=== PATIENT | female | born 1955 | race Caucasian/White ===

== ENCOUNTER → 2024-06-30 | Outpatient (CLI) | payer MEDICARE, SELFPAY ==
[2024-07-04 17:08] LABS: Calprotectin, Stool 83 ug/g (0-120)
[2024-07-06 03:07] LABS: Giardia Lamblia, Stool EIA Negative (Negative); Pancreatic Elastase, Fecal > 800 (>200)
== END | disposition home or self-care (01) ==
LOC: LAB 08:11
PROVIDERS: PCP Internal Medicine; Referring Provider Student in an Organized Health Care Education/Training Program; Visit Provider Student in an Organized Health Care Education/Training Program
DX: K52.9 Noninfective gastroenteritis and colitis, unspecified (principal)
CPT/HCPCS: 82653; 83993; 87329; 87493

== ENCOUNTER 2025-04-18 06:08 | Day surgery (SDC) | payer MEDICARE, SELFPAY ==
[2025-04-18] VITALS (11 sets, daily range): BP systolic 102–136; BP diastolic 59–72; PULSE 67–94; RESP 16; TEMP 36.4–36.6; O2SAT 95–97; BMI 20.2
--- OUTSIDE RECORDS SUMMARY | 2025-04-18 06:14 | XMS RPT_ITS | CCD ---
Author Organization [facility] CliniSy[facility] Care Team Providers Care Planned Giving Officer Name Role Phone [place] BRAND Unavailable Unavailable [place] BRAND Unavailable Unavailable [place] Brand Unavailable Unavailable Indiana Brand Unavailable Unavailable [place] Brand Unavailable Unavailable [place] BRAND Unavailable Unavailable [place] BRAND Unavailable Unavailable Geovanni, Monie Unavailable Unavailable Unavailable Geovanni, Dr. Lomax Primary Care Unavailable Naomy Casillas Attending Unavailable Attila, Dr. Steve Chavis Attending Naga Galarza, Dr. Lomax Primary Care Unavailable Dr. Steve Aiken Attending Naga Galarza, Dr. Lomax Primary Care Unavailable Geovanni, Dr. Lomax Primary Care Unavailable Geovanni, Dr. Lomax Attending Unavailable Geovanni, Dr. Lomax Referring Unavailable Monie Galarza MD Primary Care Provider Monie Galarza MD Unavailable [phone] [place] KINDERGARTEN TUTOR, Wendi Unavailable Unavailable [place] KINDERGARTEN TUTOR, Wendi Unavailable Unavailable [place] KINDERGARTEN TUTOR, Wendi Unavailable Unavailable EDGAR GORDON Attending Unavailable ZARRABI, MONIE Referring Unavailable ZARRABI, MONIE Primary Care Unavailable MAGDALENARRABI, MONIE Primary Care Unavailable TELLO MOORE Admitting Unavailable ISABELLA GALEANO Attending Unavailable ZARRABI, MONIE Primary Care Unavailable DIANDRA NIELSON Attending Unavailable ZARRABI, MONIE Referring Unavailable ZARRABI, MONIE Primary Care Unavailable MAGDALENARRABI MONIE Referring Unavailable MAGDALENARRABI, MONIE Primary Care Unavailable GEOVANNI MONIE Referring Unavailable MAGDALENARRABI, MONIE Primary Care Unavailable Alejandrina Phoenix Attending Provider Geovanni WOOD, Dr. Lomax Primary Care Provider [phone] Alejandrina Phoenix Referring Provider [phone] ALEXUS MALIK Referring Unavailable ZARRABI, MONIE Primary Care Unavailable ADAM HANKINS Admitting Unavailable STEVE SALAS Attending Unavailable DIANDRA NIELSON Referring Unavailable ZARRABI, MONIE Primary Care Unavailable JAKE MIRELES Admitting Unavailable JAKE MIRELES Attending Unavailable ZARRABI, MONIE Primary Care Unavailable ZARRABI, MONIE Primary Care Unavailable ZARRABI, MONIE Primary Care Unavailable Dr. Monie Galarza MD Referring Provider Monie Galarza MD Primary Care Provider Monie Galarza MD Unavailable [phone] Alejandrina Phoenix Attending Provider Dr. Monie Galarza MD Primary Care Provider [phone] Zarrabi, Monie Referring Unavailable Alejandrina Montes Attending Unavailable Zarrabi, Monie Primary Care Unavailable Zarrabi, Monei Referring Unavailable Alejandrina Montes Attending Unavailable Zarrabi, Monie Primary Care Unavailable Alejandrina Montes Attending Unavailable ConradnasAlejandrina brian Referring Unavailable Zarrabi, Monie Primary Care Unavailable Shavon Rivas Attending Unavailable Alejandrina Montes Attending Unavailable ZARRABI, MONIE Attending Unavailable ZARRABI, MONIE Primary Care Unavailable ZARRABI, MONIE Referring Unavailable ZARRABI, MONIE Primary Care Unavailable ZARRABI, MONIE Referring Unavailable ZARRABI, MONIE Attending Unavailable ZARRABI, MONIE Primary Care Unavailable ZARRABI, MONIE Attending Unavailable ZARRABI, MONIE Primary Care Unavailable ZARRABI, MONIE Attending Unavailable ZARRABI, MONIE Primary Care Unavailable ZARRABI, MONIE Attending Unavailable ZARRABI, MONIE Primary Care Unavailable ZARRABI, MONIE Referring Unavailable ZARRABI, MONIE Attending Unavailable ZARRABI, MONIE Primary Care Unavailable ZARRABI, MONIE Referring Unavailable ZARRABI, MONIE Attending Unavailable MONIE GALARZA Primary Care Unavailable MONIE GALARZA Referring Unavailable Allergies Allergy Classification Reported Allergen(s) Allergy Type Date of Onset Reaction(s) Facility (1 source) No Known Allergies; Translations: [No Known Allergies] Propensity to adverse reactions to drug (disorder) [facility] Repository (1 source) No Known Medication Allergies; Translations: [No Known Medication Allergies] Propensity to adverse reactions to drug (disorder) [facility] Repository Medications Current Medications Medication Drug Class(es) Dates Sig (Normalized) Sig (Original) acetaminophen 325 mg oral tablet (6 sources) Start: 10-04-2023 take 1 tablet by mouth every four hours as needed 650 mg, oral, Every 4 hours PRN, pain mild (1-3), first line, Starting on Tue10/04/23 at 1924, Phase II/On Unit, If ordered PRN for pain, nurse is permitted to administer this medication for higher pain scores based on patient preference? Yes Start: 09-29-2023 End: 10-11-2023 take 2 tablets by mouth every four hours acetaminophen (Tylenol) 325 mg tablet Indications: SBO (small bowel obstruction) (Multi) , Small bowel obstruction (Multi) Take 2 tablets (650 mg) by mouth every 4 hours. 09/29/2023 10/11/2023 Discontinued (Therapy completed) Start: 09-17-2023 take 1 tablet by linda th every four hours as needed acetaminophen (Tylenol) tablet 650 mg amLODIPine 10 mg oral tablet (8 sources) Dihydropyridine Calcium Channel Lorene Start: 03-11-2025 take 1 tablet by mouth once daily amLODIPine (Norvasc) 10 mg tablet Indications: Benign essential HTN Take 1 tablet (10 mg) by mouth once daily. 30 tablet 11 03/11/2025 Active Start: 02-11-2025 End: 03-11-2025 take 1.5 tablets by mouth once daily amLODIPine (Norvasc) 5 mg tablet Indications: Benign essential HTN Take 1.5 tablets (7.5 mg) by mouth once daily. 135 tablet 3 02/11/2025 03/11/2025 Discontinued (Reorder) Start: 01-21-2025 End: 02-11-2025 take 1 tablet by mouth once daily amLODIPine (Norvasc) 5 mg tablet Indications: Benign essential HTN Take 1 tablet (5 mg) by mouth once daily. 90 tablet 3 01/21/2025 02/11/2025 Discontinued (Reorder) Start: 12-18-2024 take 1 tablet by linda th once daily Amlodipine 5 mg tablet Active 5 mg PO daily December 18, 2024 12:00am Start: 11-20-2024 End: 11-20-2025 take 1 tablet by mouth once daily amLODIPine (Norvasc) 2.5 mg tablet Indications: Benign essential HTN Take 1 tablet (2.5 mg) by mouth once daily. 30 tablet 11 11/20/2024 01/21/2025 Discontinued (Reorder) Amoxicillin (1 source) Penicillin-class Antibacterial Start: 06-02-2023 End: 06-16-2023 take 1 dose by mouth twice daily wecgtyrsrer-jdvfvzshxfvnoe-psnjceszdecr (Prevpac) 500-500-30 mg combo pack Indications: Helicobacter pylori gastritis Take by mouth 2 times a day for 14 days. Follow directions for each daily card for when to take. 1 each 0 06/02/2023 06/16/2023 Active atropine sulfate 0.025 mg / diphenoxylat e hydrochlorid e 2.5 mg oral tablet (4 sources) Anticholinergic, Cholinergic Muscarinic Antagonist, Antidiarrheal Start: 12-24-2024 take 1 tablet by mouth twice daily diphenoxylate-atropine (Lomotil) 2.5-0.025 mg tablet Take 1 tablet by mouth 2 times a day. 12/24/2024 Active Start: 12-18-2024 Diphenoxylate- Atropine (Lomotil) 2.5-0.025 mg tablet Active 1 {tbl} PO TWICE A DAY as needed for diarrhea 60 1 December 18, 2024 12:00am biotin 1 mg oral tablet (20 sources) Start: 10-04-2023 take 10 mg by mouth once daily 10 mg, oral, Daily, First dose on Tue10/04/23 at 1015 take 1 tablet by mouth once abdoul y biotin 10 mg tablet Take 1 tablet (10 mg) by mouth once daily. Active Biotin TABS TAKE 1 TABLET DAILY. Quantity: 0 Refills: 0 Ordered: 08-Sep-2021 DO Active calcium carbonate 500 mg chewable tablet (1 source) Start: 10-04-2023 take 500 mg by mouth once daily 500 mg, oral, Daily, First dose on Tue10/04/23 at 1255 calcium carbonate 1250 mg / cholecalciferol 200 unt oral tablet (12 sources) Vitamin D take 1 tablet by mouth twice daily calcium carbonate-vitam in D3 500 mg-5 mcg (200 unit) tablet Take 1 tablet by mouth 2 times a day. Active calcium chloride 0.0014 meq/ml / potassium chloride 0.004 meq/ml / sodium chloride 0.103 meq/ml / sodium lactate 0.028 meq/ml injectable solution (5 sources) Start: 10-04-2023 End: 10-05-2023 take 100 mL intravenously every hour 100 mL/hr, intravenous, Continuous, Starting on Tue10/05/23 at 2130, Phase II/On Unit Start: 09-17-2023 End: 09-18-2023 take 75 mL intravenously every hour 75 mL/hr, intravenous, Continuous, Starting on Tue09/17/23 at 1425 Start: 05-26-2023 End: 05-27-2023 lactated Ringer's infusion esomeprazole 40 mg granules for oral suspension (1 source) Proton Pump Inhibitor Start: 09-18-2023 40 mg, nasogastric tube, Daily before breakfast, First dose on Tue09/18/23 at 0700, Add 15 mL water to catheter-tipped syringe, add granules from packet. Shake and let thicken. Administer through NG tube within 30 minutes. Refill with 15 mL of water, shake and flush NG tube. famotidine 20 mg oral tablet (20 sources) Histamine-2 Receptor Antagonist Start: 03-06-2024 take 1 tablet by mouth once daily Famotidine 20 mg tablet Active 20 mg PO daily March 06, 2024 1:00am Start: 09-18-2023 End: 09-19-2023 Starting on Tue09/19/23 at 1 120, For 1 dose, Created by cabinet override Start: 04-13-2023 End: 05-23-2024 take 1 tablet by mouth twice daily famotidine (Pepcid) 20 mg tablet Indications: Gastroesophageal reflux disease without esophagitis Take 1 tablet by mouth twice daily 60 tablet 11 08/09/2023 05/23/2024 Discontinued (Therapy completed) fenofibrate 48 mg oral tablet (5 sources) Peroxisome Proliferator Receptor alpha Agonist Start: 11-20-2024 take 1 tablet by mouth once daily fenofibrate (Tricor) 48 mg tablet Indications: Hypertriglyceridemia Take 1 tablet (48 mg) by mouth once daily. 30 tablet 11 11/20/2024 Active glucagon (rdna) 1 mg injection (1 source) Antihypoglycemic Agent Start: 09-18-2023 1 mg, intramuscular, Every 15 min PRN, low blood sugar - see comments, For blood glucose less than or equal to 40 mg/dL and no IV access, Starting on Tue09/18/23 at 1022, Give until blood glucose is 100 mg/dL or greater. If patient DOES NOT HAVE secure IV access & patient is unconscious, NPO or is unable to eat or drink. 50 ml glucose 500 mg/ml prefilled syringe (1 source) Start: 09-18-2023 25 g, intravenous, Every 15 min PRN, For blood glucose less than or equal to 40 mg/dL, Starting on Tue09/18/23 at 1022, May repeat until blood glucose level reaches 100 mg/dL or greater. Push 2 - 3 mL/minute if patient has secure IV access. 1 ml heparin sodium, porcine 5000 unt/ml injection (2 sources) Unfractionated Heparin, Anti-coagulant Start: 10-04-2023 inject 5000 [IU] by subcutaneous injection every eight hours 5,000 Units, subcutaneous, Every 8 hours, First dose on Tue10/04/23 at 1300 Start: 09-17-2023 inject 5000 [IU] by subcutaneous injection every eight hours 5,000 Units, subcutaneous, Every 8 hours, First dose on 09/17/23 at 1425 insulin lispro 100 unt/ml injectable solution (3 sources) Insulin Analog Start: 09-19-2023 End: 09-22-2023 0-5 Units, subcutaneous, Every 6 hours, First dose (after last modification) on Tue09/19/23 at 1800, For 3 days, Insulin Lispro Corrective Scale #1 Hypoglycemia protocol Call LIP unit(s) if Blood Glucose is between 0 - 70 mg/dL 0 unit(s) if Blood glucose is between 71-150 1 unit(s) if Blood glucose is between 151-200 2 unit(s) if Blood glucose is between 201-250 3 unit(s) if Blood glucose is between 251-300 4 unit(s) if Blood glucose is between 301-350 5 unit(s) if Blood glucose is between 351-400 Notify provider unit(s) if Blood Glucose is greater than 400 mg/dL Start: 09-19-2023 End: 09-19-2023 Starting on 09/19/23 at 0 457, For 1 dose, Created by cabinet override Start: 09-18-2023 End: 09-19-2023 0-5 Units, subcutaneous, Gia ry 4 hours, First dose on 09/18/23 at 1045, Insulin Lispro Corrective Scale #1 Hypoglycemia protocol Call LIP unit(s) if Blood Glucose is between 0 - 70 mg/dL 0 unit(s) if Blood glucose is between 71-150 1 unit(s) if Blood glucose is between 151-200 2 unit(s) if Blood glucose is between 201-250 3 unit(s) if Blood glucose is between 251-300 4 unit(s) if Blood glucose is between 301-350 5 unit(s) if Blood glucose is between 351-400 Notify provider unit(s) if Blood Glucose is greater than 400 mg/dL lactobacillus acidophilus 1.5 mg oral capsule (20 sources) Start: 07-11-2023 take 1 capsule by mouth once daily Lactobacillus acidophilus (Probiotic Acidophilus) 250 million cell capsule Indications: Abdominal bloating Take 1 1e11 Vector Genomes by mouth once daily. 30 capsule 11 07/11/2023 Active lisinopril 20 mg oral tablet (20 sources) Angiotensin Converting Enzyme Inhibitor Start: 02-27-2025 take 1 tablet by mouth twice daily lisinopril 20 mg tablet Indications: Benign essential HTN Take 1 tablet by mouth twice daily 60 tablet 11 02/27/2025 Active Start: 01-31-2024 End: 03-27-2024 take 1 tablet by mouth twice daily lisinopril 20 mg tablet Indications: Benign essential HTN Take 1 tablet (20 mg) by mouth 2 times a day. 60 tablet 11 03/27/2024 Active Start: 12-29-2023 End: 01-31-2024 take 1.5 tablets by mouth twice daily lisinopril 10 mg tablet Indications: Benign essential HTN Take 1.5 tablets (15 mg) by mouth 2 times a day. 270 tablet 3 12/29/2023 01/31/2024 Discontinued (Reorder) Start: 12-08-2023 End: 12-29-2023 take 1 tablet by mouth twice daily lisinopril 10 mg tablet Indications: Benign essential HTN Take 1 tablet (10 mg) by mouth 2 times a day. 180 tablet 3 12/08/2023 12/29/2023 Discontinued (Reorder) Start: 11-10-2023 take 1.5 tablets by mouth once daily lisinopril 10 mg tablet Indications: Benign essential HTN Take 1.5 tablets (15 mg) by mouth once daily. 135 tablet 3 11/10/2023 Active Start: 04-13-2023 End: 11-10-2023 take 1 tablet by mouth once daily lisinopril 10 mg tablet Indications: Benign essential HTN Take 1 tablet (10 mg) by mouth once daily. 90 tablet 3 04/13/2023 11/10/2023 Discontinued (Reorder) Start: 05-04-2022 End: 04-13-2023 take 1 tablet by mouth once daily lisinopril 5 mg tablet Take 1 tablet (5 mg) by mouth once daily. 0 07/28/2022 04/13/2023 Discontinued (Reorder) loperamide hydrochloride 2 mg oral capsule (20 sources) Opioid Agonist Start: 03-06-2024 End: 09-18-2024 take 1 capsule by mouth every six hours as needed Loperamide 2 mg capsule Active 2 mg PO EVERY 6 HOURS as needed for loose stool 45 2 September 18, 2024 9:48am Start: 12-08-2023 take 1 capsule by [facility] four times daily as needed for diarrhea loperamide (Imodium) 2 mg capsule Indications: Diarrhea, unspecified type Take 1 capsule (2 mg) by mouth 4 times a day as needed for diarrhea. 30 capsule 2 12/08/2023 Active Start: 10-06-2023 End: 11-05-2023 take 1 capsule by mouth four times daily at mealtime loperamide (Imodium) 2 mg capsule Indications: Diarrhea Take 1 capsule (2 mg) by mouth 4 times a day with meals. 120 capsule 10/06/2023 11/05/2023 Active Start: 10-05-2023 End: 10-05-2023 take 2 mg by mouth once 2 mg, oral, Once, On 10/04 at 1750, For 1 dose Start: 09-29-2023 End: 10-29-2023 take 1 capsule by mouth three times daily as needed for diarrhea loperamide (Imodium) 2 mg capsule Indications: SBO (small bowel obstruction) (Multi) , Small bowel obstruction (Multi) Take 1 capsule (2 mg) by mouth 3 times a day as needed for diarrhea. 90 capsule 09/29/2023 10/11/2023 Discontinued (Therapy completed) magnesium chloride 64 mg magnesium tablet (14 sources) Start: 10-11-2023 take 1 tablet by mouth once daily magnesium chloride 64 mg magnesium tablet Indications: Hypomagnesemia Take 1 1e11 Vector Genomes by mouth once daily. 30 tablet 11 10/11/2023 Active multivit-min/ferrous fumarate (MULTI VITAMIN ORAL) (9 sources) take 1 tablet by mouth once daily multivit-min/ferrous fumarate (MULTI VITAMIN ORAL) Take 1 tablet by mouth once daily. Active take 1 tablet by mouth once abdoul y multivit-min/ferrous fumarate (MULTI VITAMIN ORAL) Take 1 tablet by mouth once daily. 0 Active multivitamin tablet (12 sources) take 1 tablet by mouth once daily multivitamin tablet Take 1 tablet by mouth once daily. Active omeprazole 40 mg delayed release oral capsule (20 sources) Proton Pump Inhibitor Start: 03-06-20 take 1 capsule by mouth once daily omeprazole (PriLOSEC) [address] capsule Indications: Gastroesophageal reflux disease, unspecified whether esophagitis present Take 1 capsule by mouth once daily 90 capsule 3 12/18/2024 Active Start: 10-10-2023 End: 10-11-2023 take 1 capsule by mouth once daily Omeprazole 40 mg capsule,delayed release(DR/EC) Active 40 mg PO daily March 06, 2024 1:00am Start: 10-12-2022 take 1 capsule by mo uth once daily omeprazole (PriLOSEC) [address] capsule Indications: Gastroesophageal reflux disease, unspecified whether esophagitis present Take 1 capsule (40 mg) by mouth once daily. 90 capsule 3 10/12/2022 Active Start: 04-06-2022 take 1 capsule by mo uth once daily Omeprazole 40 MG Oral Capsule Delayed Release TAKE 1 CAPSULE Daily Quantity: 30 Refills: 5 Ordered: 06-Apr-2022 Monie Galarza MD Start : 06-Apr-2022 Active ondansetron ODT (Zofran-ODT) disintegrating tablet 4 mg (1 source) Start: 09-19-2023 take 1 tablet by mouth every eight hours as needed ondansetron ODT (Zofran-ODT) disintegrating tablet 4 mg pantoprazole 40 mg delayed release oral tablet (1 source) Proton Pump Inhibitor Start: 10-05-2023 take 40 mg by mouth once daily before breakfast 40 mg, oral, Daily before breakfast, First dose on Tue10/05/23 at 0700, Do not crush, chew, or split. phenol 14 mg/ml mucosal spray (1 source) Start: 09-17-2023 take 1 spray(s) by mouth every two hours as needed 1 spray, Mouth/Throat, Every 2 hour PRN, sore throat, Starting on 09/17/23 at 2036, Instruct patient to spit out after 15 seconds. phenylephrine 0.0025 mg/mg rectal suppository (7 sources) alpha-1 Adrenergic Agonist phenylephrine 0.25 % suppository Insert 1 suppository into the rectum. Active phenylephrine 0.25 % suppository (3 sources) phenylephrine 0. 25 % suppository Insert 1 suppository into the rectum. Active microencapsulated potassium chloride 20 meq extended release oral tablet (20 sources) Start: 11-10-2023 End: 01-21-2025 take 1 tablet by mouth once daily potassium chloride CR (Klor-Con M20) 20 mEq ER tablet Indications: Hypokalemia Take 1 tablet (20 mEq) by mouth once daily. DO NOT CRUSH CHEW OR SPLIT 90 tablet 3 01/21/2025 Active Start: 10-11-2023 End: 10-10-2024 take 1 tablet by mouth once daily potassium chloride C R (Klor- Con) 10 mEq ER tablet Indications: Hypokalemia Take 1 tablet (10 mEq) by mouth once daily. Do not crush, chew, or split. 30 tablet 11 10/11/2023 11/10/2023 Discontinued (Reorder) Start: 10-05-2023 End: 10-05-2023 40 mEq, oral, Once, On Tue at 2130, For 1 dose, Best given with food and plenty of water to minimize gastric irritation. Do not crush or chew. Start: 10-05-2023 End: 10-05-2023 take 20 mEq intravenously every two hours 20 mEq, intravenous, at 50 mL/hr, Administer over 2 Hours, Every 2 hours, First dose on Tue10/05/23 at 1000, For 2 doses, Total dose is 40 mEq via peripheral line. Start: 10-03-2023 End: 10-03-2023 20 mEq, intravenous, at 50 m L/hr, Administer over 2 Hours, Once, On Tue10/03/23 at 2045, For 1 dose, Via peripheral line 500 ml soybean oil 200 mg/ml injection (1 source) Start: 09-18-2023 50 g (250 mL), intravenous, at 20.8 mL/hr, Administer over 12 Hours, Daily Lipids, First dose on Tue09/18/23 at 2000, Use a 1.2 micron filter. thiamine hydrochloride 100 m g/ml injectable solution (1 source) Start: 09-19-2023 End: 09-26-2023 100 mg, intravenous, Daily, First dose (after last modification) on Tue09/19/23 at 1445, For 7 days Completed/Discontinued Medications Medication Drug Class(es) Dates Sig (Normalized) Sig (Original) Adult Clinimix Parenteral Nutrition (1 source) Start: 09-18-2023 End: 09-19-2023 75 mL/hr, intravenous, Administer over 24 Hours, Daily PN, Starting on Tue09/18/23 at 2000, Maximum rate: 200 mL/hour Use a 0.22 micron filter., Indication: Bowel obstruction Adult Clinimix Parenteral Nutrition Continuous (1 source) Start: 09-19-2023 End: 09-20-2023 100 mL/hr, intravenous, Administer over 24 Hours, Daily PN, Starting on Tue09/19/23 at 2000, For 1 day, Use a 0.22 micron filter., Indication: Bowel obstruction benzocaine 140 mg/ml / butamben 20 mg/ml / tetracaine 20 mg/ml mucosal spray (1 source) Lucy Local Anesthetic, Standardized Chemical Allergen Start: 09-17-2023 End: 09-17-2023 apply 2 spray(s) topically once 2 spray, Topical, Once, On 09/17/23 at 1505, For 1 dose, Apply to: throat betamethasone 0.5 mg/ml / clotrimazole 10 mg/ml topical cream (7 sources) Azole Antifungal, Corticosteroid Start: 04-06-2022 Clotrimazole-Betame thasone 1-0.05 % External Cream APPLY 1 APPLICATION TO AFFECTED AREA TWICE DAILY NEEDED FOR RASH Quantity: 1 Refills: 5 Ordered: 06-Apr-2022 Monie Galarza MD Start : 06-Apr-2022 Active bifidobacterium animalis [id number] unt / lactobacillus acidophilus [id number] unt oral capsule (20 sources) End: 05-24-2023 take 1 capsule by mouth once daily L. acidophilus/Bifid. animalis 32 billion cell capsule Take 1 capsule by mouth once daily. 0 05/24/2023 Discontinued (Med List Cleanup) busPIRone hydrochloride 5 mg oral tablet (7 sources) Start: 04-06-2022 take 1 tablet by mouth twice daily as needed busPIRone HCl - 5 MG Oral Tablet TAKE 1 TABLET 2 times daily PRN Quantity: 40 Refills: 5 Ordered: 06-Apr-2022 Monie Galarza MD Start : 06-Apr-2022 Active calcium carbonate 1250 mg / cholecalciferol 1000 unt / vitamin k 0.4 mg chewable tablet (3 sources) Vitamin D Start: 05-18-2022 take 1 tablet by mouth once daily Calcium + D 500-1000-40 MG-UNT-MCG Oral Tablet Chewable Take 1 tablet daily Quantity: 30 Refills: 11 Ordered: 18-May-2022 Monie Galarza MD Start : 18-May-2022 Active calcium citrate 950 mg oral tablet (10 sources) End: 10-05-2023 take 1 tablet by mouth once daily calcium citrate (Calcitrate) 200 mg (950 mg) tablet Take 1 tablet (200 mg) by mouth once daily. 10/05/2023 Discontinued (Entered in Error) cetirizine hydrochloride 10 mg oral capsule (3 sources) Histamine-1 Receptor Antagonist ZyrTEC Allergy 10 MG Oral Capsule Quantity: 0 Refills: 0 Ordered: 16-Sep-2021 DO Active sugar-free cholestyramine resin 4000 mg powder for oral suspension (4 sources) Bile Acid Sequestrant Start: 09-18-2024 End: 01-21-2025 take 1 dose by mouth twice daily Cholestyramine Light 4 gram packet Take 1 packet (4 g) by mouth 2 times a day. 10/20/2024 01/21/2025 Discontinued (Therapy completed) cloNIDine hydrochloride 0.1 mg oral tablet (9 sources) Central alpha-2 Adrenergic Agonist Start: 05-23-2024 End: 11-20-2024 take 1 tablet by mouth twice daily cloNIDine (Catapres) 0.1 mg tablet Indications: Benign essential HTN Take 1 tablet (0.1 mg) by mouth 2 times a day. 60 tablet 11 05/23/2024 11/20/2024 Discontinued (Side effects) Start: 04-17-2024 End: 05-23-2024 take 1 tablet by mouth twice daily cloNIDine (Catapres) 0.2 mg tablet Indications: Benign essential HTN Take 1 tablet (0.2 mg) by mouth 2 times a day. 60 tablet 11 04/17/2024 05/23/2024 Discontinued (Reorder) Start: 03-27-2024 End: 04-17-2024 take 1 tablet by mouth twice daily cloNIDine (Catapres) 0.1 mg tablet Indications: Benign essential HTN Take 1 tablet (0.1 mg) by mouth 2 times a day. 60 tablet 11 03/27/2024 04/17/2024 Discontinued (Reorder) colestipol hydrochloride 1000 mg oral tablet (20 sources) Bile Acid Sequestrant Start: 03-06-2024 End: 12-18-2024 Colestipol 1 gram tablet Discontinued 2 g PO TWICE A DAY 90 August 07, 2024 8:21am December 18, 2024 8:56am Start: 03-06-2024 End: 11-20-2024 Colestipol 1 gram tablet Dis continued 1 g PO ONCE 30 March 06, 2024 1:00am March 06, 2024 11:25am diatrizoate clarissa-diatrizoat sod (Gastrografin 37% organic bound iodine) solution 330 mL (1 source) Start: 09-19-2023 End: 09-19-2023 330 mL, nasogastric tube, Once, On Tue09/19/23 at 1245, For 1 dose fexofenadine (18 sources) Histamine-1 Receptor Antagonist End: 05-24-2023 fexofenadine HCl (HODAN ORAL) Take by mouth. 0 05/24/2023 Discontinued (Med List Cleanup) fexofenadine HCl (HODAN ORAL) Take by mouth. 0 Active Hodan CAPS Benny ntity: 0 Refills: 0 Ordered: 06-Oct-2021 DO Active Haloperidol (1 source) Typical Antipsychotic Start: 09-19-2023 End: 09-19-2023 2 mg, intravenous, Once, On 09/19/23 at 2300, For 1 dose, Patients receiving IV haloperidol should be on continuous cardiac monitoring. iohexol (OMNIPaque) 350 mg iodine/mL solution 60 mL (1 source) Start: 09-17-2023 End: 09-17-2023 60 mL, intravenous, Once in imaging, Starting on 09/17/23 at 1214, For 1 dose 100 ml levoFLOXacin 5 mg/ml injection (1 source) Quinolone Antimicrobial Start: 10-03-2023 End: 10-04-2023 500 mg, intravenous, at 100 mL/hr, Administer over 60 Minutes, Once, On Tue10/03/23 at 2300, For 1 dose, premix bag, Dosing of this medication varies based on severity of illness. Does this patient have sepsis or concern for sepsis (probable or documented infection plus systemic manifestations of infection)? Yes, Suspected Indication (Select all that apply): Abdominal Infection, Type of Therapy: Empiric, Type of infection: Community-Acquired lidocaine hydrochloride 0.02 mg/mg topical gel (2 sources) Antiarrhythmic, Amide Local Anesthetic Start: 05-26-2023 End: 05-26-2023 lidocaine (Uro-Jet) 2 % jelly 50 ml magnesium sulfate 40 mg/ml injection (3 sources) Start: 10-06-2023 End: 10-06-2023 2 g, intravenous, at 25 mL/hr, Administer over 2 Hours, Once, On Serena 10/06/23 at 1500, For 1 dose Start: 10-06-2023 End: 10-06-2023 4 g, intravenous, at 25 mL/h r, Administer over 4 Hours, Once, On Serena 10/06/23 at 1000, For 1 dose Start: 10-03-2023 End: 10-03-2023 2 g, intravenous, at 25 mL/h r, Administer over 120 Minutes, Once, On Tue10/03/23 at 2040, For 1 dose, Indication for rapid magnesium sulfate IV infusion: Asthma Memory Richard TABS (13 sources) Memory Richard TABS Quantity: 0 Refills: 0 Ordered: 26-Nov-2021 DO Active Meperidine (2 sources) Opioid Agonist Start: 05-26-2023 End: 05-26-2023 meperidine PF (Demerol) injection 5 ml midazolam 1 mg/ml injection (2 sources) Benzodiazepine Start: 05-26-2023 End: 05-26-2023 midazolam (Versed) injection Multi Vitamin TABS (19 sources) Multi Vitamin TA BS TAKE 1 TABLET DAILY. Quantity: 0 Refills: 0 Ordered: 08-Sep-2021 DO Active 2 ml ondansetron 2 mg/ml injection (7 sources) Serotonin-3 Receptor Antagonist Start: 10-04-2023 End: 10-04-2023 4 mg, intravenous, Once, On Tue10/04/23 at 0220, For 1 dose, When administering via IV Push, administer over 3-5 minutes. Start: 10-04-2023 End: 10-04-2023 Starting on Tue10/04/23 at 02 19, For 1 dose, Created by cabinet override When administering via IV Push, administer over 3-5 minutes. Start: 09-17-2023 End: 09-17-2023 4 mg, intravenous, Once, On Tue09/17/23 at 1400, For 1 dose, When administering via IV Push, administer over 3-5 minutes. Start: 05-30-2023 take 1 tablet by linda four times daily as needed for nausea ondansetron (Zofran) 4 mg tablet Indications: Nausea and vomiting, unspecified vomiting type Take 1 tablet (4 mg) by mouth 4 times a day as needed for nausea or vomiting. 30 tablet 0 05/30/2023 Active End: 10-06-2023 take 1 tablet by mouth every eight hours as needed ondansetron (Zofran) 4 mg tablet Take 1 tablet (4 mg) by mouth every 8 hours if needed for nausea or vomiting. 10/06/2023 Discontinued (Stop Taking at Discharge) oxyCODONE hydrochloride 5 mg oral tablet (1 source) Opioid Agonist Start: 09-29-2023 End: 10-06-2023 take 1 tablet by mouth every four hours for pain oxyCODONE (Roxicodone) 5 mg immediate release tablet Indications: SBO (small bowel obstruction) (Multi) , Small bowel obstruction (Multi) Take 1 tablet (5 mg) by mouth every 4 hours if needed for moderate pain (4 - 6) or severe pain (7 - 10) for up to 3 days. 12 tablet 09/29/2023 10/06/2023 Discontinued (Stop Taking at Discharge) 1000 ml potassium chloride 0.02 meq/ml / sodium chloride 9 mg/ml injection (2 sources) Start: 09-17-2023 End: 09-17-2023 Starting on 09/17/23 at 2205, For 1 dose, Created by cabinet override Start: 09-17-2023 End: 09-18-2023 take 150 mL intravenously every hour 150 mL/hr, intravenous, Continuous, Starting on 09/17/23 at 1540 prochlorperazine 5 mg/ml injectable solution (2 sources) Phenothiazine Start: 09-17-2023 End: 09-17-2023 10 mg, intravenous, Once, On 09/17/23 at 1530, For 1 dose Start: 09-17-2023 End: 09-17-2023 Starting on 09/17/23 at 1 524, For 1 dose, Created by cabinet override promethazine hydrochloride 50 mg oral tablet (8 sources) Phenothiazine Start: 06-24-2023 End: 10-06-2023 take 1 tablet by mouth four times daily as needed for nausea promethazine (Phenergan) 50 mg tablet Indications: Nausea Take 1 tablet (50 mg) by mouth 4 times a day as needed for nausea or vomiting. 30 tablet 11 08/22/2023 10/06/2023 Discontinued (Stop Taking at Discharge) Start: 06-01-2023 End: 06-08-2023 take 1 tablet by mouth four times daily as needed for nausea promethazine (Phenergan) 50 mg tablet Indications: Nausea and vomiting, unspecified vomiting type Take 1 tablet (50 mg) by mouth 4 times a day as needed for nausea or vomiting for up to 7 days. 40 tablet 1 06/01/2023 06/08/2023 Active sodium bicarbonate 150 mEq in dextrose 5% 1,000 mL infusion (1 source) Start: 10-04-2023 End: 10-05-2023 take 125 mL intravenously every hour 125 mL/hr, intravenous, Continuous, Starting on Tue10/04/23 at 0825 1000 ml sodium chloride 9 mg/ml injection (7 sources) Start: 10-03-2023 End: 10-04-2023 take 125 mL intravenously every hour 125 mL/hr, intravenous, Continuous, Starting on Tue10/04/23 at 0705 Start: 09-19-2023 End: 09-20-2023 Starting on Tue09/20/23 at 0 854, For 1 dose, Created by cabinet override Start: 09-17-2023 End: 09-17-2023 1,000 mL, intravenous, at 99 9 mL/hr, Administer over 1 Hours, Once, On Tue09/17/23 at 1025, For 1 dose sodium phosphate 15 mmol in sodium chloride 0.9% 250 mL IV (1 source) Start: 09-19-2023 End: 09-19-2023 15 mmol, intravenous, at 62.5 mL/hr, Administer over 4 Hours, Once, On Tue09/19/23 at 1345, For 1 dose sucralfate 1000 mg oral tablet (10 sources) Aluminum Complex Start: 05-30-2023 End: 07-10-2024 take 1 tablet by mouth four times daily as needed sucralfate (Carafate) 1 gram tablet Indications: Chronic gastritis without bleeding, unspecified gastritis type Take 1 tablet (1 g) by mouth 4 times a day as needed (bloating). 120 tablet 07/11/2023 10/06/2023 Discontinued (Stop Taking at Discharge) vit C/vit E ac/selenium/ginkgo (MEMORY COMPLEX ORAL) (3 sources) End: 05-24-2023 vit C/vit E ac/selenium/ginkgo (MEMORY COMPLEX ORAL) Take by mouth. 0 05/24/2023 Discontinued (Med List Cleanup) vit C/vit E ac/s elenium/ginkgo (MEMORY COMPLEX ORAL) Take by mouth. 0 Active vitamin b12 1 mg/ml injectable solution (14 sources) Vitamin B12 Start: 03-11-2025 End: 03-11-2025 cyanocobalamin (Vitamin B-12) injection 1,000 mcg Start: 03-11-2025 End: 03-11-2025 inject 1000 ug by intramuscular injection once 1,000 mcg, intramuscular, Once, On Tue03/11/25 at 1030, For 1 dose Start: 02-11-2025 End: 02-11-2025 cyanocobalamin (Vitamin B-12 ) injection 1,000 mcg Start: 02-11-2025 End: 02-11-2025 inject 1000 ug by intramuscular injection once 1,000 mcg, intramuscular, Once, On Tue02/11/25 at 0900, For 1 dose Start: 01-21-2025 End: 01-21-2025 cyanocobalamin (Vitamin B-12 ) injection 1,000 mcg Start: 01-21-2025 End: 01-21-2025 inject 1000 ug by intramuscular injection once 1,000 mcg, intramuscular, Once, On Tue01/21/25 at 0900, For 1 dose Start: 11-20-2024 End: 11-20-2024 cyanocobalamin (Vitamin B-12 ) injection 1,000 mcg Start: 11-20-2024 End: 11-20-2024 inject 1000 ug by intramuscular injection once 1,000 mcg, intramuscular, Once, On Tue11/20/24 at 0900, For 1 dose Start: 05-23-2024 End: 05-23-2024 cyanocobalamin (Vitamin B-12 ) injection 1,000 mcg Start: 05-23-2024 End: 05-23-2024 inject 1000 ug by intramuscular injection once 1,000 mcg, intramuscular, Once, On Tue05/23/24 at 1045, For 1 dose Start: 04-17-2024 End: 04-17-2024 cyanocobalamin (Vitamin B-12 ) injection 1,000 mcg Start: 04-17-2024 End: 04-17-2024 inject 1000 ug by intramuscular injection once 1,000 mcg, intramuscular, Once, On Tue04/17/24 at 0845, For 1 dose Start: 03-27-2024 End: 03-27-2024 cyanocobalamin (Vitamin B-12 ) injection 1,000 mcg Start: 03-27-2024 End: 03-27-2024 inject 1000 ug by intramuscular injection once 1,000 mcg, intramuscular, Once, On Tue03/27/24 at 1130, For 1 dose zinc acetate 50 mg oral capsule (9 sources) Start: 12-08-2023 End: 11-20-2024 take 1 capsule by mouth once daily zinc acetate 50 mg (zinc) capsule Indications: Zinc deficiency Take 50 mg by mouth once daily. 90 capsule 3 12/08/2023 11/20/2024 Discontinued (Med List Cleanup) Problems Active Problems Problem Classification Problem Date Documented Date Episodic/Chronic Administrative/social admission (7 sources) Advance directive discussed with patient; Translations: [Other specified counseling] Episodic Anxiety disorders (20 sources) Anxiety; Translations: [Anxiety state, unspecified] Onset: 05-30-2023 05-30-2023 Chronic Digestive congenital anomalies (1 source) Other congenital malformations of pancreas and pancreatic duct; Translations: [Oth congenital malformations of pancreas and pancreatic duct] Onset: 12-04-2021 Chronic Disorders of lipid metabolism (20 sources) Hypertriglyceridemia; Translations: [Pure hyperglyceridemia] Onset: 10-11-2022 04-13-2023 Chronic Esophageal disorders (20 sources) Gastroesophageal reflux disease; Translations: [Esophageal reflux] Onset: 10-11-2022 04-13-2023 Chronic Essential hypertension (20 sources) Benign essential hypertension; Translations: [Benign essential hypertension] Onset: 10-12-2022 04-13-2023 Chronic Fluid and electrolyte disorders (20 sources) Hypokalemia; Translations: [Hypokalemia] Onset: 10-12-2022 10-12-2022 Episodic Gastritis and duodenitis (20 sources) Chronic gastritis; Translations: [Unspecified chronic gastritis without bleeding] Onset: 05-30-2023 05-30-2023 Chronic Gastritis and duodenitis (1 source) Acute gastritis; Translations: [Acute gastritis without bleeding] 05-30-2023 Episodic Immunizations and screening for infectious disease (3 sources) Requires influenza virus vaccination; Translations: [Encounter for immunization] Onset: 01-21-2025 01-21-2025 Episodic Malaise and fatigue (1 source) Fatigue; Translations: [Chronic fatigue, unspecified] 11-20-2024 Chronic Nutritional deficiencies (20 sources) Deficiency of macronutrients; Translations: [Unspecified protein-calorie malnutrition] Onset: 05-30-2023 05-30-2023 Chronic Other bone disease and musculoskeletal deformities (5 sources) Postmenopausal osteopenia; Translations: [Disorder of bone and cartilage, unspecified] Episodic Other nutritional; endocrine; and metabolic disorders (18 sources) Hypomagnesemia; Translations: [Hypomagnesemia] Onset: 10-11-2023 10-11-2023 Chronic Other nutritional; endocrine; and metabolic disorders (1 source) Hypocalcemia; Translations: [Hypocalcemia] Onset: 12-29-2023 Chronic Other nutritional; endocrine; and metabolic disorders (2 sources) Other disorders of glycoprotein metabolism; Translations: [Other disorders of glycoprotein metabolism (Multi)] Onset: 10-12-2022 Chronic Other nutritional; endocrine; and metabolic disorders (1 source) Hypomagnesemia; Translations: [Hypomagnesemia] Onset: 10-11-2023 Chronic Other nutritional; endocrine; and metabolic disorders (1 source) Unintentional weight loss; Translations: [Abnormal weight loss] 09-12-2023 Episodic Residual codes; unclassified (12 sources) H/O: gastrointestinal disease; Translations: [Personal history of other diseases of digestive system] Episodic Residual codes; unclassified (4 sources) History of clinical finding in subject; Translations: [Personal history of other specified diseases] Episodic Residual codes; unclassified (11 sources) Postmenopausal state; Translations: [Asymptomatic postmenopausal status (age-related) (natural)] 03-27-2024 Episodic Residual codes; unclassified (1 source) Postoperative state; Translations: [Other specified postprocedural states] 10-06-2023 Episodic Residual codes; unclassified (1 source) History of partial resection of colon; Translations: [Acquired absence of other specified parts of digestive tract] 10-11-2023 Episodic Screening and history of mental health and substance abuse codes (15 sources) Screening - NAD; Translations: [Screening for depression] Episodic Unclassified (3 sources) Patient encounter status 03-27-2024 Past or Other Problems Problem Classification Problem Date Documented Da te Episodic/Chronic Abdominal hernia (20 sources) Hiatal hernia; Translations: [Diaphragmatic hernia without obstruction or gangrene] Onset: 05-30-2023 05-30-2023 Episodic Abdominal pain (20 sources) Epigastric pain; Translations: [Abdominal pain, epigastric] Onset: 01-25-2014 Resolved: 10-12-2022 10-12-2022 Episodic Acute and unspecified renal failure (3 sources) Acute injury of kidney; Translations: [Acute kidney failure, unspecified] Onset: 10-03-2023 10-04-2023 Episodic Cancer of cervix (20 sources) Malignant tumor of cervix; Translations: [Malignant neoplasm of cervix uteri, unspecified] Onset: 01-19-2012 Resolved: 10-12-2022 10-12-2022 Chronic Cancer of cervix (20 sources) History of malignant neoplasm of cervix; Translations: [Personal history of malignant neoplasm of cervix uteri] Onset: 10-12-2022 10-12-2022 Episodic Comment on above: 2011; Cancer of uterus (20 sources) Malignant neoplasm of endometrium; Translations: [Malignant neoplasm of endometrium of corpus uteri ] Onset: 09-02-2011 Resolved: 10-12-2022 10-12-2022 Chronic Cancer of uterus (20 sources) History of malignant neoplasm of uterine body; Translations: [Personal history of malignant neoplasm of other parts of uterus] Onset: 10-11-2022 Resolved: 12-29-2023 10-12-2022 Episodic Comment on above: 2011; Crushing injury or internal injury (20 sources) Laceration of right ureter; Translations: [Laceration of ureter, initial encounter] Onset: 12-27-2011 10-12-2022 Episodic Deficiency and other anemia (17 sources) Anemia; Translations: [Anemia, unspecified] Onset: 10-11-2023 10-11-2023 Episodic Deficiency and other anemia (2 sources) Anemia, unspecified; Translations: [Anemia, unspecified] Onset: 10-11-2023 Episodic Intestinal infection (20 sources) Infection caused by Helicobacter pylori; Translations: [Other specified bacterial intestinal infections] Onset: 06-06-2023 Resolved: 06-27-2023 06-06-2023 Episodic Intestinal obstruction without hernia (20 sources) Partial obstruction of intestine; Translations: [Unspecified intestinal obstruction] Onset: 10-11-2022 Resolved: 11-10-2023 10-11-2022 Episodic Malaise and fatigue (20 sources) Fatigue; Translations: [Other malaise and fatigue] Onset: 10-11-2022 Resolved: 01-21-2025 10-11-2022 Episodic Mycoses (20 sources) Candidiasis of skin; Translations: [Candidiasis of skin and nails] Onset: 05-30-2023 Resolved: 06-06-2023 05-30-2023 Episodic Nausea and vomiting (20 sources) Nausea; Translations: [Nausea alone] Onset: 05-26-2023 Resolved: 05-30-2023 04-13-2023 Episodic Noninfectious gastroenteritis (20 sources) Chronic diarrhea; Translations: [Noninfective gastroenteritis and colitis, unspecified] Onset: 04-26-2023 04-13-2023 Episodic Nonmalignant breast conditions (20 sources) Breast finding ; Translations: [Breast density] Onset: 10-11-2022 Resolved: 06-06-2023 10-11-2022 Episodic Nutritional deficiencies (20 sources) Cobalamin deficiency; Translations: [Deficiency of other specified B group vitamins] Onset: 12-27-2023 01-31-2024 Episodic Other and unspecified benign neoplasm (20 sources) Gastric polyp; Translations: [Polyp of stomach and duodenum] Onset: 06-06-2023 06-06-2023 Episodic Other bone disease and musculoskeletal deformities (1 source) Other specified disorders of bone density and structure, multiple sites; Translations: [Oth disrd of bone density and structure, multiple sites] Onset: 04-28-2022 Episodic Other circulatory disease (20 sources) Elevated blood-pressure reading without diagnosis of hypertension; Translations: [Elevated blood pressure reading without diagnosis of hypertension] Onset: 10-11-2022 Resolved: 10-12-2022 10-12-2022 Episodic Other gastrointestinal disorders (19 sources) Intolerance to food; Translations: [Malabsorption due to intolerance, not elsewhere classified] Onset: 09-12-2023 Resolved: 10-11-2023 09-12-2023 Chronic Other gastrointestinal disorders (20 sources) 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; Translations: [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] Onset: 10-11-2022 Resolved: 06-06-2023 10-11-2022 Episodic Other gastrointestinal disorders (20 sources) Heartburn; Translations: [Heartburn] Onset: 05-30-2023 Resolved: 05-30-2023 05-30-2023 Episodic Other gastrointestinal disorders (20 sources) Abdominal bloating; Translations: [Flatulence, eructation, and gas pain] Onset: 05-30-2023 Resolved: 05-30-2023 04-13-2023 Episodic Other gastrointestinal disorders (4 sources) 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; Translations: [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] Onset: 12-04-2021 Episodic Other gastrointestinal disorders (1 source) Other specified functional intestinal disorders; Translations: [Other specified functional intestinal disorders] Onset: 12-04-2021 Episodic Other gastrointestinal disorders (17 sources) Diarrhea; Translations: [Diarrhea, unspecified] Onset: 10-04-2023 Resolved: 10-06-2023 10-06-2023 Episodic Other gastrointestinal disorders (15 sources) Personal history of other diseases of the digestive system; Translations: [Personal history of other diseases of digestive system] Onset: 10-11-2023 10-11-2023 Episodic Other gastrointestinal disorders (2 sources) Abdominal distension (gaseous); Translations: [Abdominal distension (gaseous)] Onset: 05-26-2023 Episodic Other gastrointestinal disorders (3 sources) Diarrhea, unspecified; Translations: [Diarrhea, unspecified] Onset: 10-04-2023 Episodic Other infections; including parasitic (20 sources) History of Helicobacter pylori infection; Translations: [Personal history of other infectious and parasitic diseases] Onset: 06-27-2023 Resolved: 11-10-2023 06-27-2023 Episodic Other nutritional; endocrine; and metabolic disorders (20 sources) Hypoproteinemia; Translations: [Other disorders of glycoprotein metabolism] Onset: 10-12-2022 Resolved: 03-27-2024 10-12-2022 Chronic Other nutritional; endocrine; and metabolic disorders (17 sources) Hypocalcemia; Translations: [Hypocalcemia] Onset: 10-11-2023 Resolved: 12-29-2023 10-11-2023 Chronic Other and delivery including normal (20 sources) Delivery normal; Translations: [Normal delivery] Onset: 05-30-2023 Resolved: 06-06-2023 05-30-2023 Episodic Comment on above: [id number] [id number]_6# 10oz; Other screening for suspected conditions (not mental disorders or infectious disease) (20 sources) Patient encounter status; Translations: [Special screening for malignant neoplasms of colon] Onset: 04-02-2022 Episodic Residual codes; unclassified (20 sources) Past history of procedure; Translations: [Other specified personal history presenting hazards to health] Onset: 12-01-2017 Resolved: 05-30-2023 10-12-2022 Episodic Comment on above: CAT 2; Residual codes; unclassified (20 sources) Insomnia; Translations: [Insomnia, unspecified] Onset: 10-11-2022 10-11-2022 Episodic Residual codes; unclassified (8 sources) Asymptomatic menopausal state; Translations: [Asymptomatic menopausal state] Onset: 04-28-2022 Episodic Residual codes; unclassified (16 sources) History of excision of small intestine; Translations: [Acquired absence of other specified parts of digestive tract] Onset: 10-11-2023 10-11-2023 Episodic Residual codes; unclassified (2 sources) Other specified postprocedural states; Translations: [Other specified postprocedural states] Onset: 09-21-2023 Episodic Unclassified (20 sources) Onset: 04-13-2023 Resolved: 03-11-2025 04-13-2023 Results Test Name Value Interpretation Reference Range Facility Gastroenterology Visit Repor ton 12-18-2024 Gastroenterology Visit Report [facility]astro[facility] [address] [place] [address] OFFICE VISIT Date of Service: 12/18/24 MR#: [id number] Acct: [id number] Name: KAMILA PATEL Rep #: [id number] : 1955 Provider: CHLOE Gibbs Age/Sex: 69/F Location: [facility] Status: Signed Intake Intake Visit Reasons: 3 M FU Chief Complaint: diarrhea Allergies No Known Allergies Allergy (Unverified 12/18/24 08:56) Medications ???Medication ???Instructions ???Recorded ???Confirmed ???Type lisinopril 20 mg tablet 20 mg PO BID 02/09/24 12/18/24 His tory famotidine 20 mg tablet 20 mg PO QDAY 03/06/24 12/18/24 Hi story omeprazole 40 mg capsule,delayed 40 mg PO QDAY 03/06/24 12/18/24 Hi story release cholestyramine 4 gram oral powder 4 g PO BID #60 ea 09/18/24 Rx for suspension in a packet (Cholestyramine Light) loperamide 2 mg capsule 2 mg PO Q6H PRN loose stool #45 12/18/24 Rx caps amlodipine 5 mg tablet 5 mg PO QDAY 12/18/24 12/18/24 His tory diphenoxylate-atropine 2.5 1 tab PO BID PRN diarrhea #60 tabs 12/18/24 12/18/24 Rx mg-0.025 mg tablet (Lomotil) fenofibrate nanocrystallized 48 mg 48 mg PO QDAY 12/18/24 12/18/24 History tablet Have you fallen in the past year?: No Nurse's Note: Pt reports change to Cholestyramine has not been helpful for diarrhea. She continues to take it as prescribed. No new sx. PFSH Medical History History of small bowel obstruction Fatigue Hypoproteinemia Hypomagnesemia Anemia B12 deficiency Chronic diarrhea Surgical History Hx of resection of small bowel HPI HPI Chief Complaint: diarrhea Details: KAMILA PATEL, is a 69 F who presents to the office today for follow-up. I established March 2024 with complaints of watery diarrhea since her small bowel resection and partial colectomy in August 2023. Started on Colestipol 2 grams daily. OV 5.20.25; if she takes Imodium she will have a formed stool, always after she eats, Last OV 2..25 Continues loose stools on a daily basis. Having about 8 bm per day while taking colestipol 2 grams daily. Increased colestipol to 2 grams BID Stool 3.1.25; Calprotectin, elastase, Giardia, and c.dif all wnl OV 5.20.25 Pt continues to have loose stools daily. She has loose stools after eating. SHe endorse around 7 episodes of loose stool per day. She is taking colestipol 4 grams daily split into to doses. She has not noticed much Relief with this. She takes Imodium 3x a day as needed when she has a special occasions like travel. Patient switched from colestipol to cholestyramine. OV 8.19.25 patient continues to have loose stools while on cholestyramine. She notes she had recent blood work done with her PCP and her triglycerides were high. Patient's PCP is wondering if this was related to the bile acid sequestrant's. Patient takes Imodium as needed when she has to go out. ROS Const Constitutional: No fatigue, fever(s) or weight change ENT ENT: No difficulty swallowing Gastro GI: Positive for diarrhea; No abdominal pain, belching, bloating, change in bowel habits, change in stool character, coffee ground emesis, constipation, cramping, heartburn, difficulty swallowing, feeling full early, excessive flatus, incontinent of stools, Vomiting blood/hematemesis, Blood in stool, loose stools, Black,tarry stools, nausea/dyspepsia, pain with swallowing, vomiting or other Musc Musculoskeletal: No joint pain Skin Skin: No yellowing of the eye or itchy eyes Psych Psychiatric: No anxiety and No depression Endo Endocrine: No fatigue or weight change Aller/Imm Allergy/Immunologic: No itchy eyes Ford/Lymp Hematologic/Lymphatic: No easy bleeding or easy bruising Exam Const General: cooperative, healthy appearing and comfortable Orientation: alert HENMT Head: normal to inspection Eyes General: appearance normal, both eyes and all related structures Neck Neck: normal visual inspection Chest Chest palpation inspection: normal inspection of the chest Resp Effort Inspection: normal respiratory effort GI Inspection: normal to inspection Rectal Exam: tenderness Assessment and Plan Assessment and Plan (1) Chronic diarrhea: Status: Chronic Plan: Kamila is a 69-year-old female patient with past medical history of small bowel resection and subsequently chronic loose stool. In the past patient has been on colestipol which helps somewhat. Following her last appointment we trialed cholestyramine which had the same effect as colestipol. Recent lab work with her PCP showed increase in her triglycerides. This may be related to the bile acid sequestrant's. I recommended discontinuation as it may (more content not included)... Normal [place] [facility] (INCLUDES DIFF/PLT)on Basophils (Bld) [#/Vol] 0.123 10*3/uL Normal 0-200 [facility] Comment on above: Performed By: #### 6 21, 4419, 06091, 46274, 6399 #### [facility] of [facility] [address] , [address] [place] [address] [employer] Server Dba: Emile Christianson MD #### 945 #### [facility] [place] Sql Server Dba: pEhraim Pritchett M.D.,PhD Basophils/100 WBC (Bld) 1.5 % Normal [facility] Comment on above: Performed By: #### 6 22, 7600, 41132, 18057, 6399 #### [facility] of [place] [address], [address] [place], [place] [address] Sql [employer] Dba: Emile Christianson MD #### 945 #### [facility] [place], [place] [employer] Dba: Ephraim Pritchett M.D.,PhD Eosinophils (Bld) [#/Vol] 0.426 10*3/uL Normal 15-500 [facility] Comment on above: Performed By: #### 6 22, 7600, 57261, 11595, 6399 #### [facility] of [place] [address] , [address] [place], [place] [address] Sql Server Dba: Emile Christianson MD #### 945 #### [facility]/[place] [address] [facility] [place] [employer] Server Dba: Ephraim Pritchett M.D.,PhD Eosinophils/100 WBC (Bld) 5.2 % Normal [facility] Comment on above: Performed By: #### 6 22, 7600, 85977, 41822, 6399 #### [facility] of [address], [address] [place] [address] [employer] Dba: Emile Christianson MD #### 945 #### [facility]/[place] [address]25 [facility] [place] [employer] Dba: Ephraim Pritchett M.D.,PhD Erythrocyte distribution width (RBC) [Ratio] 14.0 % Normal 11.0-15.0 [facility] Comment on above: Performed By: #### 6 22, 7600, 30325, 76910, 6399 #### [facility] of [place] [address] , [address] [place], [place] [address] [employer] Dba: Emile Christianson MD #### 945 #### [facility]/[address] [place], [place] [employer] Dba: Ephraim Pritchett M.D.,PhD Hematocrit (Bld) [Volume fraction] 42.3 % Normal 35.0-45.0 [facility] Comment on above: Performed By: #### 6 22, 7600, 35647, 73108, 6399 #### [facility] of [address], [address] [place], [place] [address] Sql Server Dba: Emile Christianson MD #### 945 #### [facility]/[address] [place], [place] [employer] Dba: Ephraim Pritchett M.D.,PhD Hemoglobin (Bld) [Mass/Vol] 13.2 g/dL Normal 11.7-15.5 [facility] Comment on above: Performed By: #### 6 22, 7600, 40527, 03867, 6399 #### [facility] of [address], [address] [place], [place] [address] Sql Server Dba: Emile Christianson MD #### 945 #### [facility]/[address] [place], [place] [employer] Dba: Ephraim Pritchett M.D.,PhD Lymphocytes (Bld) [#/Vol] 2.804 10*3/uL Normal 850-3900 [facility] Comment on above: Performed By: #### 6 22, 7600, 03493, 44255, 6399 #### [facility] of [address], [address] [place], [place] [address] Sql Server Dba: Emile Christianson MD #### 945 #### [facility]/[place] [address]25 [facility] [place] [employer] Dba: Ephraim Pritchett M.D.,PhD Lymphocytes/100 WBC (Bld) 34.2 % Normal [facility] Comment on above: Performed By: #### 6 , 0, 16021, , 99 #### [facility] [address], [address] [place], [place] [address] Sql Server Dba: Emile Christianson MD #### 945 #### [facility]/[place] [address]25 [facility] [place] Sql Server Dba: Ephraim Pritchett M.D.,PhD MCH (RBC) [Entitic mass] 31.9 pg Normal 27.0-33.0 [facility] Comment on above: Performed By: #### 6 , 7599, 09186, , 6398 #### [facility] of [address], [address] [place], [place] [address] Sql Server Dba: Emile Christianson MD #### 945 #### [facility]/[place] [address]25 [facility] [place] [employer] Server Dba: Ephraim Pritchett M.D.,PhD MCHC (RBC) [Mass/Vol] 31.2 g/dL Low 32.0-36.[address] [facility] Comment on above: Result Comment: For adults, a slight decrease in the calculated MCHC value (in the range of 30 to 32 g/dL) is most likely not clinically significant; however, it should be interpreted with caution in correlation with other red cell parameters and the patient's clinical condition. Performed By: #### 6 , 0, 31255, 16317, 6399 #### [facility] [address], [address] [place], [place] [id number] Sql Server Dba: Emile Christianson MD #### 945 #### [facility]/[address] [place] [employer] Dba: Ephraim Pritchett M.D.,PhD MCV (RBC) [Entitic vol] 102.2 fL High 80.0-100.0 [facility] Comment on above: Performed By: #### 6 22, 7600, 43807, 35412, 6399 #### [facility] of [address], [address] [place] [address] Sql Server Dba: Emile Christianson MD #### 945 #### [facility]/[place] [address]25 [facility] [place] [employer] Dba: Ephraim Pritchett M.D.,PhD Monocytes (Bld) [#/Vol] 0.73 10*3/uL Normal 200-950 [facility] Comment on above: Performed By: #### 6 22, 7600, 85043, 07602, 6399 #### [facility] of [address], [address] [place], [place] [address] Sql Server Dba: Emile Christianson MD #### 945 #### [facility]/[address] [place] [employer] Dba: Ephraim Pritchett M.D.,PhD Monocytes/100 WBC (Bld) 8.9 % Normal [facility] Comment on above: Performed By: #### 6 22, 7600, 11141, 20926, 6399 #### [facility] of [address], [address] [place], [place] [address] Sql Server Dba: Emile Christianson MD #### 945 #### [facility]/[place] [address]25 [facility] [place] [employer] Server Dba: Ephraim Pritchett M.D.,PhD Neutrophils (Bld) [#/Vol] 4.116 10*3/uL Normal 1422-8845 [facility] Comment on above: Performed By: #### 6 22, 7600, 22729, 06144, 6399 #### [facility] of [place] [address], [address] [place], [place] [address] Sql Server Dba: Emile Christianson MD #### 945 #### [facility] [place] [employer] Server Dba: Ephraim Pritchett M.D.,PhD Neutrophils/100 WBC (Bld) 50.2 % Normal [facility] Comment on above: Performed By: #### 6 22, 7600, 55623, 83445, 6399 #### [facility] of [address], [address] [place], [place] [address] Sql Server Dba: Emile Christianson MD #### 945 #### [facility] [place] [employer] Server Dba: Ephraim Pritchett M.D.,PhD Platelet mean volume (Bld) [Entitic vol] 11.7 fL Normal 7.5-12.5 [facility] Comment on above: Performed By: #### 6 22, 7600, 71849, 14396, 6399 #### [facility] of [place] [address], [address] [place], [place] [address] Sql Server Dba: Emile Christianson MD #### 945 #### [facility] [place] Sql Server Dba: Ephraim Pritchett M.D.,PhD Platelets (Bld) [#/Vol] 287 10*3/uL Normal 140-400 [facility] Comment on above: Performed By: #### 6 22, 7600, 51649, 50456, 6399 #### [facility] of [address], [address] [place] [address] Sql Server Dba: Emile Christianson MD #### 945 #### [facility] [place] [employer] Server Dba: Ephraim Pritchett M.D.,PhD RBC (d) [#/Vol] 4.14 10*6/uL Normal 3.80-5.10 [facility] Comment on above: Performed By: #### 6 22, 7600, 08078, 35753, 6399 #### [facility] of [address], [address] [place] [address] Sql Server Dba: Emile Christianson MD #### 945 #### [facility]/[address] [place] [employer] Dba: Ephraim Pritchett M.D.,PhD WBC (d) [#/Vol] 8.2 10*3/uL Normal 3.8-10.8 [facility] Comment on above: Performed By: #### 6 22, 7600, 49511, 64206, 6399 #### [facility] of [address], [address] [place], [place] [address] Sql Server Dba: Emile Christianson MD #### 945 #### [facility]/[address] [place] [employer] Dba: Ephraim Pritchett M.D.,PhD COMPREHENSIVE METABOLIC PANE L W/ANION GAPon 11-18-2024 Albumin [Mass/Vol] 4.5 g/dL Normal 3.6-5.1 [facility] Comment on above: Performed By: #### 6 22, 7600, 84718, 65762, 6399 #### [facility] of [address], [address] [place], [place] [address] Sql Server Dba: Emile Christianson MD #### 945 #### [facility]/[place] [address]25 [facility] [place] Sql Server Dba: Ephraim Pritchett M.D.,PhD ALP [Catalytic activity/Vol] 107 U/L Normal 37-153 [facility] Comment on above: Performed By: #### 6 22, 7600, 95912, 22687, 6399 #### [facility] of [address], [address] [place], [place] [address] Sql Server Dba: Emile Christianson MD #### 945 #### [facility] [place] Sql Server Dba: Ephraim Pritchett M.D.,PhD ALT [Catalytic activity/Vol] 38 U/L High 6-29 [facility] Comment on above: Performed By: #### 6 22, 7600, 36334, 85240, 6399 #### [facility] of [address], [address] [place], [place] [address] Sql Server Dba: Emile Christianson MD #### 945 #### [facility]/[address] [place] [employer] Dba: Ephraim Pritchett M.D.,PhD AST [Catalytic activity/Vol] 28 U/L Normal 10-35 [facility] Comment on above: Performed By: #### 6 22, 7600, 57783, 32339, 6399 #### [facility] of [address], [address] [place], [place] [address] Sql Server Dba: Emile Christianson MD #### 945 #### [facility]/[place] [address]25 [facility] [place] Sql Server Dba: Ephraim Pritchett M.D.,PhD Bilirubin [Mass/Vol] 0.5 mg/dL Normal 0.2-1.2 [facility] Comment on above: Performed By: #### 6 22, 7600, 49228, 72252, 6399 #### [facility] of [address], [address] [place], [place] [address] Sql Server Dba: Emile Christianson MD #### 945 #### [facility]/[place] [address]25 [facility] [place] Sql Server Dba: Ephraim W Shreyas M.D.,PhD Calcium [Mass/Vol] 9.4 mg/dL Normal 8.6-10.4 [facility] Comment on above: Performed By: #### 6 22, 7600, 89576, 77045, 6399 #### [facility] of [address], [address] [place], [place] [address] Sql Server Dba: Emile Christianson MD #### 945 #### [facility]/[address] [place] [employer] Server Dba: Ephraim Pritchett M.D.,PhD Chloride [Moles/Vol] 112 mmol/L High 98-110 [facility] Comment on above: Performed By: #### 6 22, 7600, 56514, 97868, 99 #### [facility] of [address], [address] [place], [place] [id number] Sql Server Dba: Emile Christianson MD #### 945 #### [facility]/[address] [place] [employer] Server Dba: Ephraim Pritchett M.D.,PhD CO2 [Moles/Vol] 18 mmol/L Low 20-32 [facility] Comment on above: Performed By: #### 6 22, 7600, 85303, 78966, 99 #### [facility] of [address], [address] [place], [place] [id number] Sql Server Dba: Emile Christianson MD #### 945 #### [facility]/[address] [place] [employer] Dba: Ephraim Pritchett M.D.,PhD Creatinine [Mass/Vol] 0.73 mg/dL Normal 0.60-1.[address] [facility] Comment on above: Performed By: #### 6 22, 7600, 06851, 32261, 4199 #### [facility] of [address] Sql Server Dba: Emile Christianson MD #### 945 #### [facility] [place] Sql Server Dba: Ephraim Pritchett M.D.,PhD ELECTROLYTE BALANCE 11 mmol/L (calc) Normal 7-17 [facility] Comment on above: Performed By: #### 6 22, 7600, 35466, 44003, 6399 #### [facility] of [facility] [address] [facility], [address] [place] [phone] Sql Server Dba: Emile Christianson MD #### 945 #### [facility]/[place] [address]25 [facility] [place] Sql Server Dba: Ephraim Pritchett M.D.,PhD GFR/1.73 sq M.predicted among non-blacks MDRD (S/P/Bld) [Vol rate/Area] 88 mL/min/{1.73_m2} Normal > OR = 60 [facility] Comment on above: Performed By: #### 6 22, 7600, 56728, 83241, 6399 #### [facility] of [address], [address] [place], [place] [address] Sql Server Dba: Emile Christianson MD #### 945 #### [facility] [place] Sql Server Dba: Ephraim Pritchett M.D.,PhD Glucose [Mass/Vol] 86 mg/dL Normal 65-99 [facility] Comment on above: Result Comment: Fasting reference interval Performed By: #### 6 22, 7600, 86580, 92785, 6399 #### [facility] of [address], [address] [place], [place] [address] Sql Server Dba: Emile Christianson MD #### 945 #### [facility] [place] Sql Server Dba: Ephraim Pritchett M.D.,PhD Potassium [Moles/Vol] 4.4 mmol/L Normal 3.5-5.[address] [facility] [address] [facility] Comment on above: Performed By: #### 6 22, 7600, 07681, 43632, 6399 #### [facility] of [address], [address] [place], [place] [address] Sql Server Dba: Emile Christianson MD #### 945 #### [facility]/[place] [address]25 [facility] [place] Sql Server Dba: Ephraim Pritchett M.D.,PhD Protein [Mass/Vol] 7.2 g/dL Normal 6.1-8.1 [facility] Comment on above: Performed By: #### 6 22, 7600, 29921, 00317, 6399 #### [facility] of [place] [address] Sql Server Dba: Emile Christianson MD #### 945 #### [facility]/[address] [place] [employer] Dba: Ephraim Pritchett M.D.,PhD Sodium [Moles/Vol] 141 mmol/L Normal 135-146 [facility] Comment on above: Performed By: #### 6 22, 7600, 51927, 50969, 1499 #### [facility] of [place] [address] Sql Server Dba: Emile Christianson MD #### 945 #### [facility]/[address] [place] [employer] Server Dba: Ephraim Pritchett M.D.,PhD Urea nitrogen [Mass/Vol] 22 mg/dL Normal 7-25 [facility] Comment on above: Performed By: #### 6 22, 7600, 09767, 52117, 6399 #### [facility] of [place] [address] Sql Server Dba: Emile Christianson MD #### 945 #### [facility]/[place] [address]25 [facility] [address] [place] Sql Server Dba: Ephraim Pritchett M.D.,PhD LIPID PANEL, [place] [address] Cholesterol [Mass/Vol] 175 mg/dL Normal <200 [facility] Comment on above: Performed By: #### 6 22, 7600, 63918, 35459, 6399 #### [facility] [address], [address] [place], [place] [address] Sql Server Dba: Emile Christianson MD #### 945 #### [facility]/[address] [place] [employer] Dba: Ephraim Pritchett M.D.,PhD Cholesterol in HDL [Mass/Vol] 54 mg/dL Normal > OR = 50 [facility] Comment on above: Performed By: #### 6 22, 7600, 61772, 24473, 6399 #### [facility] [address], [address] [place] [address] Sql Server Dba: Emile Christianson MD #### 945 #### [facility]/[address] [place] [employer] Dba: Ephraim Pritchett M.D.,PhD Cholesterol in LDL [Mass/Vol] 77 mg/dL Normal [facility] Comment on above: Result Comment: Refe rence range: <100 Desirable range <100 mg/dL for primary prevention; <70 mg/dL for patients with CHD or diabetic patients with > or = 2 CHD risk factors. LDL-C is now calculated using the Frances calculation, which is a validated novel method providing better accuracy than the Friedewald equation in the estimation of LDL-C. Noe SS et al. DOM. 2013;310(19): 0121-4150 (http://education.[employer]/faq/LPJ285) Performed By: #### 6 22, 7600, 67928, 39666, 6399 #### [facility] [address], [address] [place] [address] Sql Server Dba: Emile Christianson MD #### 945 #### [facility] [place] Sql Server Dba: Ephraim Pritchett M.D.,PhD Cholesterol.total/Mimi sterol in HDL [Mass ratio] 3.2 {ratio} Normal <5.0 [facility] Comment on above: Performed By: #### 6 , 7600, 30945, 97842, 6399 #### [facility] [address], [address] [place], [place] [address] Sql Server Dba: Emile Christianson MD #### 945 #### [facility] [place] Sql Server Dba: Ephraim Pritchett M.D.,PhD NON HDL CHOLESTEROL 121 mg/dL (calc) Normal <130 [facility] Comment on above: Result Comment: For patients with diabetes plus 1 major ASCVD risk factor, treating to a non-HDL-C goal of <100 mg/dL (LDL-C of <70 mg/dL) is considered a therapeutic option. Performed By: #### 6 , 0, 94261, 71083, 6399 #### [facility] [address], [address] [place], [place] [address] Sql Server Dba: Emile Christianson MD #### 945 #### [facility] [place] Sql Server Dba: Ephraim Pritchett M.D.,PhD Triglyceride [Mass/Vol] 368 mg/dL High <150 [facility] Comment on above: Result Comment: If a non-fasting specimen was collected, consider repeat triglyceride testing on a fasting specimen if clinically indicated. Mikhail et al. J. of Clin. Lipidol. 2015;9:129-169. Performed By: #### 6 , 7600, 32280, 34982, 6399 #### [facility] [address], [address] [place], [place] [address] Sql Server Dba: Emile Christianson MD #### 945 #### [facility]/[place] [address]25 [facility] [place] Sql Server Dba: Ephraim Pritchett M.D.,PhD MAGNESIUMon 11-18-2024 Magnesium [Mass/Vol] 1.9 mg/dL Normal 1.5-2.5 [facility] Comment on above: Performed By: #### 6 22, 7600, 69192, 27550, 6399 #### [facility] of [address], [address] [place], [place] [address] Sql Server Dba: Emile Christianson MD #### 945 #### [facility]/[place] [address]200425 [facility] [place] [employer] Server Dba: Ephraim Pritchett M.D.,PhD TSH W/REFLEX TO FT4on 2024 TSH W/REFLEX TO FT4 1.80 mIU/L Normal 0.40-4.50 [facility] Comment on above: Performed By: #### 6 22, 7600, 25593, 33202, 6399 #### [facility] [address], [address] [place], [place] [address] Sql Server Dba: Emile Christianson MD #### 945 #### [facility]/[place] [address]25 [facility] [place] [employer] Server Dba: Ephraim Pritchett M.D.,PhD VITAMIN B12on 11-18-2024 Cobalamin (Vitamin B12) [Mass/Vol] 194 pg/mL Low 200-1100 [facility] Comment on above: Performed By: #### 6 22, 7600, 62473, 88106, 6399 #### [facility] of [address], [address] [place], [place] [address] Sql Server Dba: Emile Christianson MD #### 945 #### [facility]/[place] [address] [facility] [place] Sql Server Dba: Ephraim Pritchett M.D.,PhD ZINCon 11-18-2024 ZINC 65 mcg/dL Normal 60-130 [facility] Comment on above: Result Comment: This test was developed and its analytical performance characteristics have been determined by [facility] [place], [place]. It has not been cleared or approved by the U.S. Food and Drug Administration. This assay has been validated pursuant to the CLIA regulations and is used for clinical purposes. Performed By: #### 6 22, 5290, 90198, 50668, 6399 #### [facility] [address], [address] [place] [address] Sql Server Dba: Emile Christianson MD #### 945 #### [facility] [address] [facility] [place] [address] Sql Server Dba: Ephraim Pritchett M.D.,PhD Gastroenterology Visit Rep[facility] 09-18-2024 Gastroenterology Visit Report [facility] [address] [facility] [facility] [place] [address] OFFICE VISIT Date of Service: 09/18/24 MR#: [id number] Acct: [id number] Name: KAMILA PATEL Rep #: [id number] : 1955 Provider: CHLOE Gibbs Age/Sex: 68/F Location: [facility] Status: Signed Intake Intake Visit Reasons: 3 M FU Chief Complaint: diarrhea Allergies No Known Allergies Allergy (Unverified 03/06/24 09:02) Have you fallen in the past year?: No Nurse's Note: OV 09/18/24 Pt here for f/u and reports diarrhea 7-10 times a day. Pt takes colestipol daily and Imodium as needed. Pt does see some blood after bm from having diarrhea. PFSH Medical History History of small bowel obstruction Fatigue Hypoproteinemia Hypomagnesemia Anemia B12 deficiency Chronic diarrhea Surgical History Hx of resection of small bowel HPI HPI Chief Complaint: diarrhea Details: KAMILA PATEL, is a 68 F who presents to the office today for f/u. BGI established March 2024 with complaints of watery diarrhea since her small bowel resection and partial colectomy in August 2023. Started on Colestipol 2 grams daily. OV 5..25; if she takes Imodium she will have a formed stool, always after she eats, Last OV 06.12.24 Continues loose stools on a daily basis. Having about 8 bm per day while taking colestipol 2 grams daily. Increased colestipol to 2 grams BID Stool 3.05.26; Calprotectin, elastase, Giardia, and c.dif all wnl OV 525 Pt continues to have loose stools daily. She has loose stools after eating. SHe endorse around 7 episodes of loose stool per day. She is taking colestipol 4 grams daily split into to doses. She has not noticed much Relief with this. She takes Imodium 3x a day as needed when she has a special occasions like travel. ROS Const Constitutional: Positive for fatigue and headache(s); No fever(s) or weight change ENT ENT: Positive for headache(s); No difficulty swallowing Gastro GI: Positive for diarrhea; No abdominal pain, belching, bloating, change in bowel habits, change in stool character, coffee ground emesis, constipation, cramping, heartburn, difficulty swallowing, feeling full early, excessive flatus, incontinent of stools, Vomiting blood/hematemesis, Blood in stool, loose stools, Black,tarry stools, nausea/dyspepsia, pain with swallowing, vomiting or other Musc Musculoskeletal: No joint pain Skin Skin: No yellowing of the eye or itchy eyes Neuro Neurology: Positive for headache(s) Psych Psychiatric: No anxiety and No depression Endo Endocrine: Positive for fatigue; No weight change Aller/Imm Allergy/Immunologic: No itchy eyes Ford/Lymp Hematologic/Lymphatic: No easy bleeding or easy bruising Exam Const General: cooperative, healthy appearing and comfortable Nutritional Appearance: average body habitus Orientation: alert and awake [facility] Head: normal to inspection Eyes General: appearance normal, both eyes and all related structures Neck Neck: normal visual inspection Chest Chest palpation inspection: normal inspection of the chest Resp Effort Inspection: normal respiratory effort GI Inspection: normal to inspection Auscultation: normal bowel sounds Palpation: soft Skin General: no rashes or lesions noted Assessment and Plan Assessment and Plan (1) Chronic diarrhea: Status: Chronic Plan: This is a 68 yo female pt here today for f/u regarding her chronic diarrhea after partial colectomy small bowel resection about 1 year ago. She has been on colestipol over the past few months and at her previous appointment I increased her dose to 4 grams daily. She has noticed any improvements in her loose stool. She has up to 7 loose stools per day. She takes Imodium when she has special occasions. Will switch to cholestyramine 4 grams BID to see if she has better results with this. SHe will continue Imodium PRN. -Start cholestyramine 4 grams BID -Continue Imodium PRN -f/u in 3 months Medications: New cholestyramine (Cholestyramine Light) administer w/meal; avoid other meds within 1hr before or 4-6hr after dose 4 grams PO BID 60 ea 3RF Refilled loperamide 2 mg PO Q6H PRN 45 caps 2RF loose stool Coding Level of Care Code Off vis,est,level 3 Diagnoses Chronic diarrhea K52.9 Clinical Quality Measures Falls Risk Screening/Assistive Devices Have you fallen in the past year?: No 09/18/24 0959 Date Alejandrina Castano Signature: Date (if applicable) CC: Normal [facility] Giardia Lamblia, Stool EIAon 07-06-2024 Giardia Stool Negative Normal Negative [facility] Comment on above: Performed By: #### M 100.6796, L7400.3300, L7000.0700, L7000.0750 #### [facility] [address] [place], [address] L7000.0750on 07-06-2024 P ELASTASE,FECA > 800 Normal >200 [facility] Comment on above: Result Comment: Resu lt Units: ug Elast./g Severe Pancreatic Insufficiency: <100 Moderate Pancreatic Insufficiency: 100 - 200 Normal: >200 Performed By: #### M 100.6796, L7400.3300, L7000.0700, L7000.0750 #### [facility] [address] [place], [address] Calprotectin, Stoolon [address] 83 ug/g Normal 0-120 [facility] Comment on above: Result Comment: Conc entration Interpretation Follow-Up < 5 - 50 ug/g Normal None >50 -120 ug/g Borderline Re-evaluate in 4-6 weeks >120 ug/g Abnormal Repeat as clinically indicated Performed at: - [facility] [id number] Gis Programmer: Katherine Gandhi MD, Phone: [phone] Performed By: #### M 100.6796, L7400.3300, L7000.0700, L7000.0750 #### [facility] [address] [place], [place], [id number] C. difficile DNA KARIN+probe Q l (Unsp spec)Ordered By: Alejandrina Montes on 06-30-2024 Clostridioides difficile (PCR) [facility] CDIFF (PCR)on 06-30-2024 CDIFF C diff DNA Spec Ql KARIN+probe Reference Range: Negative Cepheid GeneXpert: polymerase chain reaction (PCR) 027 027 NAP1-B1 Presumptive Negative *for epidemiolologic???use C. Diff PCR Negative- No toxigenic C. Diff Detected Normal [facility] Comment on above: Performed By: #### M 100.6796, L7400.3300, L7000.0700, L7000.0750 #### [facility] [address] [place], [place], [id number] Calprotectin stoolOrdered By : Alejandrina Montes on 03-01-2025 Calprotectin stool 83 ug/g 0-120 [facility] Comment on above: Concentration Interp retation Follow-Up< 5 - 50 ug/g Normal None>50 -120 ug/g Borderline Re-evaluate in 4-6 weeks >120 ug/g Abnormal Repeat as clinically indicatedPerformed at: [facility] [id number] Director: Katherine Gandhi MD, Phone: [phone] Stool Calprotectin 83 ug/g 0-120 [facility] Comment on above: Concentration Interp retation Follow-Up< 5 - 50 ug/g Normal None>50 -120 ug/g Borderline Re-evaluate in 4-6 weeks >120 ug/g Abnormal Repeat as clinically indicatedPerformed at: BN - [facility] [address] [id number] Director: Katherine Gandhi MD, Phone: [phone] Clostridium difficile detect ion by polymerase chain reactionOrdered By: Alejandrina Montes on 06-30-2024 C. difficile DNA KARIN+probe Ql (Unsp spec) [facility] Elastase.pancreatic (Stl) [M ass/Mass]Ordered By: Alejandrina Montes on 06-30-2024 Stool Pancreatic Elastase > 800 >200 [facility] Comment on above: Result Units: ug Connie st./g Severe Pancreatic Insufficiency: <100 Moderate Pancreatic Insufficiency: 100 - 200 Normal: >200 G. lamblia Ag IA Ql (Stl)Ord ered By: Alejandrina Montes on 06-30-2024 Stool Giardia Antigen Negative Negative [facility] Giardia lamblia ag stool EIA Ordered By: Alejandrina Montes on 06-30-2024 G. lamblia Ag IA Ql (Stl) Negative Negative [facility] Stool pancreatic elastase me asurement (mass/mass)Ordered By: Alejandrina Montes on 06-30-2024 Elastase.pancreatic (Stl) [Mass/Mass] > 800 >200 [facility] Comment on above: Result Units: ug Connie st./g Severe Pancreatic Insufficiency: <100 Moderate Pancreatic Insufficiency: 100 - 200 Normal: >200 Gastroenterology Visit Repor ton 06-12-2024 Gastroenterology Visit Report [facility] [address] [place] [address] OFFICE VISIT Date of Service: 06/12/24 MR#: [id number] Acct: [id number] Name: KAMILA PATEL Rep #: [id number] : 1955 Provider: CHLOE Gibbs Age/Sex: 68/F Location: [facility] Status: Signed Intake Intake Visit Reasons: 3 M FU Chief Complaint: diarrhea Loan Specialist Required: No Accompanied by: Is patient in pain?: No Allergies No Known Allergies Allergy (Unverified 03/06/24 09:02) Have you fallen in the past year?: No Nurse's Note: OV 06.12.24 Pt here for f/u and reports diarrhea. Takes colestipol but doesnt find its helping. PFSH Medical History History of small bowel obstruction Fatigue Hypoproteinemia Hypomagnesemia Anemia B12 deficiency Chronic diarrhea Surgical History Hx of resection of small bowel HPI HPI Chief Complaint: diarrhea Details: KAMILA PATEL, is a 68 F who presents to the office today for f/u. [facility] established 03.06.24 w complaints of watery diarrhea since small bowel resection and partial colectomy in August 2023. *Start colestipol 1 gram daily *increased colestipol to 2 gram daily OV 06.12.24 Pt continues to have loose stools on a daily basis. She has had a total of 5 days since April with no loose stools. SHe has around 8 bm per day. She takes colestipol 2 grams in the evening and has more formed stools in the morning. She does not feel like it is helping much. She does not endorse any weight loss, abd pain, constipation or melena. ROS Const Constitutional: Positive for fatigue and fever(s); No weight change ENT ENT: No difficulty swallowing Gastro GI: Positive for diarrhea; No abdominal pain, belching, bloating, change in bowel habits, change in stool character, coffee ground emesis, constipation, cramping, heartburn, difficulty swallowing, feeling full early, excessive flatus, incontinent of stools, Vomiting blood/hematemesis, Blood in stool, loose stools, Black,tarry stools, nausea/dyspepsia, pain with swallowing, vomiting or other Musc Musculoskeletal: No joint pain Skin Skin: No yellowing of the eye or itchy eyes Psych Psychiatric: No anxiety and No depression Endo Endocrine: Positive for fatigue; No weight change Aller/Imm Allergy/Immunologic: No itchy eyes Ford/Lymp Hematologic/Lymphatic: No easy bleeding or easy bruising Exam Const General: cooperative and comfortable Nutritional Appearance: average body habitus and well nourished HENMT Head: normal to inspection Ears: hearing grossly normal bilaterally Nose: external nose normal Face and sinus: normal facial exam Eyes General: appearance normal, both eyes and all related structures Neck Neck: normal visual inspection Chest Chest palpation inspection: normal inspection of the chest and normal palpation of entire chest wall Resp Effort Inspection: normal respiratory effort Auscultation: Bilateral: Clear to Auscultation Cardio Palpation: normal PMI Rate: regular rate Rhythm: regular rhythm GI Inspection: normal to inspection Auscultation: normal bowel sounds Percussion: normal to percussion Palpation: no hepatosplenomegaly Skin General: no rashes or lesions noted Neuro General: patient alert Extrem General: normal to inspection Psych Affect: normal affect Assessment and Plan Assessment and Plan (1) Chronic diarrhea: Status: Chronic Plan: This is 68 yo female patient here today for f/u regarding her chronic diarrhea. SHe continues to have around 8 bm per day. She is taking colestipol 2 grams in the evening. SHe does have more formed stools in the morning so I do feel she is benefiting from it. Will increase dose to 2 grams BID. Will also order stool testing to rule our infection, inflammation or EPI. -Increase colestipol to 2 grams BID - Stool testing Orders: Orders CDIFF (PCR) Today K52.9 - Noninfective gastroenteritis and colitis, unspecified Calprotectin, Stool Today K52.9 - Noninfective gastroenteritis and colitis, unspecified Giardia Lamblia, Stool EIA Today K52.9 - Noninfective gastroenteritis and colitis, unspecified Pancreatic Elastase, Fecal Today K52.9 - Noninfective gastroenteritis and colitis, unspecified Medications: Changed From colestipol 2 grams (2 x 1 gram) PO QHS 60 tabs 1RF To colestipol 2 grams (2 x 1 gram) PO BID 90 tabs 1RF Coding Level of Care Code Off vis,est,level 3 Diagnoses Chronic diarrhea K52.9 Clinical Quality Measures Falls Risk Screening/Assistive Devices Have you fallen in the past year?: No 06/12/24 1028 Date Alejandrina Bender (more content not included)... [facility] BI US BREAST LIMITED LEFTon 05-09-2024 BI US BREAST LIMITED LEFT Interpreted By: Roberto Sellers, STUDY: BI US BREAST LIMITED LEFT; 05/09/2024 8:25 am ACCESSION NUMBER(S): [id number] ORDERING CLINICIAN: MONIE GALARZA INDICATION: ,R92.8 Other abnormal and inconclusive findings on diagnostic imaging of breast COMPARISON: None. FINDINGS: Targeted ultrasound was performed of the left breast by a registered urban planning teacher. The left breast was examined at the 3 and 4 o'clock positions. At the 3 o'clock position 7 cm from the nipple a cluster of microcysts is seen measuring 2 x 3 x 1 mm and 3 x 3 x 1 mm. At the 4 o'clock position 5 cm from the nipple a mildly dilated duct is seen. No solid mass lesion is noted. No architectural distortion. IMPRESSION: No targeted sonographic evidence of malignancy. BI-RADS CATEGORY: BI-RADS Category: 2 Benign. Recommendation: Annual Screening. Recommended Date: 1 Year. Laterality: Bilateral. For any future breast imaging appointments, please call [phone] ([phone]). MACRO: None Signed by: Roberto Sellers 05/09/2024 8:43 AM Dictation workstation: [id number] [facility] US Breast - left limitedon 0 05-09-2024 No targeted sonograp hic evidence of malignancy. BI-RADS CATEGORY: BI-RADS Category: 2 Benign. Recommendation: Annual Screening. Recommended Date: 1 Year. Laterality: Bilateral. For any future breast imaging appointments, please call [phone] ([phone]). MACRO: None Signed by: Roberto Sellers 05/09/2024 8:43 AM Dictation workstation: [id number] GERARDOODAL Interpreted By: Roberto Sellers, STUDY: BI US BREAST LIMITED LEFT; 05/09/2024 8:25 am ACCESSION NUMBER(S): [id number] ORDERING CLINICIAN: MONIE GALARZA INDICATION: ,R92.8 Other abnormal and inconclusive findings on diagnostic imaging of breast COMPARISON: None. FINDINGS: Targeted ultrasound was performed of the left breast by a registered urban planning teacher. The left breast was examined at the 3 and 4 o'clock positions. At the 3 o'clock position 7 cm from the nipple a cluster of microcysts is seen measuring 2 x 3 x 1 mm and 3 x 3 x 1 mm. At the 4 o'clock position 5 cm from the nipple a mildly dilated duct is seen. No solid mass lesion is noted. No architectural distortion. MMODAL Roberto Sellers MD - 05/09/2024 Interpreted By: Roberto Sellers, STUDY: BI US BREAST LIMITED LEFT; 05/09/2024 8:25 am ACCESSION NUMBER(S): [id number] ORDERING CLINICIAN: MONIE GALARZA INDICATION: ,R92.8 Other abnormal and inconclusive findings on diagnostic imaging of breast COMPARISON: None. FINDINGS: Targeted ultrasound was performed of the left breast by a registered urban planning teacher. The left breast was examined at the 3 and 4 o'clock positions. At the 3 o'clock position 7 cm from the nipple a cluster of microcysts is seen measuring 2 x 3 x 1 mm and 3 x 3 x 1 mm. At the 4 o'clock position 5 cm from the nipple a mildly dilated duct is seen. No solid mass lesion is noted. No architectural distortion. IMPRESSION: No targeted sonographic evidence of malignancy. BI-RADS CATEGORY: BI-RADS Category: 2 Benign. Recommendation: Annual Screening. Recommended Date: 1 Year. Laterality: Bilateral. For any future breast imaging appointments, please call [phone] ([phone]). MACRO: None Signed by: Roberto Sellers 05/09/2024 8:43 AM Dictation workstation: [id number] [facility] Work Phone: Radiology Study observation (narrative) [facility] Work Phone: US Breast - left limitedOrde red By: Roberto Sellers on 05-09-2024 [facility] Work Phone: BI MAMMO BILATERAL SCREENING TOMOSYNTHESISon 05-07-2024 BI MAMMO BILATERAL SCREENING TOMOSYNTHESIS Interpreted By: Roberto Sellers, STUDY: BI MAMMO BILATERAL SCREENING TOMOSYNTHESIS; 05/07/2024 8:21 am ACCESSION NUMBER(S): [id number] ORDERING CLINICIAN: MONIE GALARZA INDICATION: Screening. ,Z12.31 Encounter for screening mammogram for malignant neoplasm of breast COMPARISON: 09/22/2019, 10/01/2022 FINDINGS: 2D and tomosynthesis images were reviewed at 1 mm slice thickness. Density: There are scattered areas of fibroglandular density. Few areas of dystrophic calcification are seen in the right breast. No suspicious microcalcifications. A nodule is seen, in the left breast in mid depth, in the lateral portion at about the 3 o'clock position measuring 4 x 3 mm at tomosynthesis scans craniocaudal 19/65 and MLO 21/65. This appears slightly enlarged compared to the last examination of 10/01/2022. A nodule in the medial portion of the left breast at anterior depth at cc scan 35/65 is unchanged from 09/21/2021 and 10/01/2022. No architectural distortion. No skin thickening or axillary lymphadenopathy. IMPRESSION: Nodule left breast at mid/posterior depth 3 o'clock position. Follow-up with ultrasound recommended. BI-RADS CATEGORY: BI-RADS Category: 0 Incomplete; Need Additional Imaging Evaluation Recommendation: Additional Imaging. Recommended Date: Immediate. Laterality: Left For any future breast imaging appointments, please call [phone] ([phone]). MACRO: None Signed by: Roberto Sellers 05/07/2024 9:13 AM Dictation workstation: [id number] Abnormal [facility] DBT Breast - bilateralOrdere d By: Roberto Sellers on 05-07-2024 Interpretation and review of laboratory results Abnormal [facility] Work Phone: [facility] Work Phone: DBT Breast - bilateralon Nodule left breast a t mid/posterior depth 3 o'clock position. Follow-up with ultrasound recommended. BI-RADS CATEGORY: BI-RADS Category: 0 Incomplete; Need Additional Imaging Evaluation Recommendation: Additional Imaging. Recommended Date: Immediate. Laterality: Left For any future breast imaging appointments, please call [phone] ([phone]). MACRO: None Signed by: Roberto Sellers 05/07/2024 9:13 AM Dictation workstation: [id number] MMODAL Interpreted By: Roberto Sellers, STUDY: BI MAMMO BILATERAL SCREENING TOMOSYNTHESIS; 05/07/2024 8:21 am ACCESSION NUMBER(S): [id number] ORDERING CLINICIAN: MONIE GALARZA INDICATION: Screening. ,Z12.31 Encounter for screening mammogram for malignant neoplasm of breast COMPARISON: 09/22/2019, 10/01/2022 FINDINGS: 2D and tomosynthesis images were reviewed at 1 mm slice thickness. Density: There are scattered areas of fibroglandular density. Few areas of dystrophic calcification are seen in the right breast. No suspicious microcalcifications. A nodule is seen, in the left breast in mid depth, in the lateral portion at about the 3 o'clock position measuring 4 x 3 mm at tomosynthesis scans craniocaudal 19/65 and MLO 21/65. This appears slightly enlarged compared to the last examination of 10/01/2022. A nodule in the medial portion of the left breast at anterior depth at cc scan 35/65 is unchanged from 09/21/2021 and 10/01/2022. No architectural distortion. No skin thickening or axillary lymphadenopathy. MMODAL Roberto Sellers MD - 05/07/2024 Interpreted By: Roberto Sellers, STUDY: BI MAMMO BILATERAL SCREENING TOMOSYNTHESIS; 05/07/2024 8:21 am ACCESSION NUMBER(S): [id number] ORDERING CLINICIAN: MONIE GALARZA INDICATION: Screening. ,Z12.31 Encounter for screening mammogram for malignant neoplasm of breast COMPARISON: 09/22/2019, 10/01/2022 FINDINGS: 2D and tomosynthesis images were reviewed at 1 mm slice thickness. Density: There are scattered areas of fibroglandular density. Few areas of dystrophic calcification are seen in the right breast. No suspicious microcalcifications. A nodule is seen, in the left breast in mid depth, in the lateral portion at about the 3 o'clock position measuring 4 x 3 mm at tomosynthesis scans craniocaudal 19/65 and MLO 21/65. This appears slightly enlarged compared to the last examination of 10/01/2022. A nodule in the medial portion of the left breast at anterior depth at cc scan 35/65 is unchanged from 09/21/2021 and 10/01/2022. No architectural distortion. No skin thickening or axillary lymphadenopathy. IMPRESSION: Nodule left breast at mid/posterior depth 3 o'clock position. Follow-up with ultrasound recommended. BI-RADS CATEGORY: BI-RADS Category: 0 Incomplete; Need Additional Imaging Evaluation Recommendation: Additional Imaging. Recommended Date: Immediate. Laterality: Left For any future breast imaging appointments, please call [phone] ([phone]). MACRO: None Signed by: Roberto Sellers 05/07/2024 9:13 AM Dictation workstation: [id number] [facility] Work Phone: Radiology Study observation (narrative) [facility] Work Phone: DEXA BONE DENSITYon 05-07-19 25 DEXA BONE DENSITY Interpreted By: Jake Henry, STUDY: DEXA BONE DENSITY05/07/2024 8:16 am INDICATION: Signs/Symptoms:screenin g. The patient is a 68 y/o year old F. ,Z78.0 Asymptomatic menopausal state COMPARISON: Prior exam from 04/28/2022.. ACCESSION NUMBER(S): [id number] ORDERING CLINICIAN: MONIE GALARZA TECHNIQUE: DEXA BONE DENSITY FINDINGS: SPINE L1-L4 Bone Mineral Density: 1.097 T-Score -1.0 Z-Score 0.7 Bone Mineral Density change vs baseline: 2.9% Bone Mineral Density change vs previous: Not reported LEFT FEMUR -TOTAL Bone Mineral Density: 0.725 T-Score -2.2 Z-Score -0.8 Bone Mineral Density change vs baseline: -10.0% Bone Mineral Density change vs previous: Not reported LEFT FEMUR -NECK Bone Mineral Density: 0.716 T-Score -2.3 Z-Score -0.7 Bone Mineral Density change vs baseline: Not reported Bone Mineral Density change vs previous: Not reported World Health Organization (WHO) criteria for post-menopausal, Women: Normal: T-score at or above -1 SD Osteopenia: T-score between -1 and -2.5 SD Osteoporosis: T-score at or below -2.5 SD 10-year Fracture Risk: Major Osteoporotic Fracture 19.8 Hip Fracture 5.7 Note: If no FRAX score is reported, it is because: Some T-score for Spine Total or Hip Total or Femoral Neck at or below -2.5 IMPRESSION: DEXA: According to World Health Organization criteria, classification is low bone mass (osteopenia) Followup recommended in two years or sooner as clinically warranted. All images and detailed analysis are available on the Radiology PACS. MACRO: None Signed by: Jake Alaniz 05/07/2024 8:54 AM Dictation workstation: [id number] [facility] DXA Skeletal system Views fo r bone densityon 05-07-2024 DEXA: According to World Health Organization criteria, classification is low bone mass (osteopenia) Followup recommended in two years or sooner as clinically warranted. All images and detailed analysis are available on the Radiology PACS. MACRO: None Signed by: Jake Alaniz 05/07/2024 8:54 AM Dictation workstation: [id number] MMODAL Interpreted By: Jake Henry, STUDY: DEXA BONE DENSITY05/07/2024 8:16 am INDICATION: Signs/Symptoms:screenin g. The patient is a 68 y/o year old F. ,Z78.0 Asymptomatic menopausal state COMPARISON: Prior exam from 04/28/2022.. ACCESSION NUMBER(S): [id number] ORDERING CLINICIAN: MONIE GALARZA TECHNIQUE: DEXA BONE DENSITY FINDINGS: SPINE L1-L4 Bone Mineral Density: 1.097 T-Score -1.0 Z-Score 0.7 Bone Mineral Density change vs baseline: 2.9% Bone Mineral Density change vs previous: Not reported LEFT FEMUR -TOTAL Bone Mineral Density: 0.725 T-Score -2.2 Z-Score -0.8 Bone Mineral Density change vs baseline: -10.0% Bone Mineral Density change vs previous: Not reported LEFT FEMUR -NECK Bone Mineral Density: 0.716 T-Score -2.3 Z-Score -0.7 Bone Mineral Density change vs baseline: Not reported Bone Mineral Density change vs previous: Not reported World Health Organization (WHO) criteria for post-menopausal, Women: Normal: T-score at or above -1 SD Osteopenia: T-score between -1 and -2.5 SD Osteoporosis: T-score at or below -2.5 SD 10-year Fracture Risk: Major Osteoporotic Fracture 19.8 Hip Fracture 5.7 Note: If no FRAX score is reported, it is because: Some T-score for Spine Total or Hip Total or Femoral Neck at or below -2.5 [facility] MMODAL Jake Alaniz MD - 05/07/2024 Interpreted By: Jake Alaniz, STUDY: DEXA BONE DENSITY05/07/2024 8:16 am INDICATION: Signs/Symptoms:screenin g. The patient is a 68 y/o year old F. ,Z78.0 Asymptomatic menopausal state COMPARISON: Prior exam from 04/28/2022.. ACCESSION NUMBER(S): [id number] ORDERING CLINICIAN: MONIE GALARZA TECHNIQUE: DEXA BONE DENSITY FINDINGS: SPINE L1-L4 Bone Mineral Density: 1.097 T-Score -1.0 Z-Score 0.7 Bone Mineral Density change vs baseline: 2.9% Bone Mineral Density change vs previous: Not reported LEFT FEMUR -TOTAL Bone Mineral Density: 0.725 T-Score -2.2 Z-Score -0.8 Bone Mineral Density change vs baseline: -10.0% Bone Mineral Density change vs previous: Not reported LEFT FEMUR -NECK Bone Mineral Density: 0.716 T-Score -2.3 Z-Score -0.7 Bone Mineral Density change vs baseline: Not reported Bone Mineral Density change vs previous: Not reported World Health Organization (WHO) criteria for post-menopausal, Women: Normal: T-score at or above -1 SD Osteopenia: T-score between -1 and -2.5 SD Osteoporosis: T-score at or below -2.5 SD 10-year Fracture Risk: Major Osteoporotic Fracture 19.8 Hip Fracture 5.7 Note: If no FRAX score is reported, it is because: Some T-score for Spine Total or Hip Total or Femoral Neck at or below -2.5 IMPRESSION: DEXA: According to World Health Organization criteria, classification is low bone mass (osteopenia) Followup recommended in two years or sooner as clinically warranted. All images and detailed analysis are available on the Radiology PACS. MACRO: None Signed by: Jake Alaniz 05/07/2024 8:54 AM Dictation workstation: [id number] [facility] Work Phone: Radiology Study observation (narrative) [facility] Work Phone: DXA Skeletal system Views fo r bone densityOrdered By: Jake Alaniz on 05-07-2024 [facility] Work Phone: CBC W Auto Differential pane l (Bld)on 03-22-2024 Basophils (Bld) [#/Vol] 0.11 x10*3/uL High 0.00-0.10 [facility] Comment on above: Performed By: #### 5 902-2 #### LINDA Beckett ([id number]) [facility] ([facility]) [address] [place] [id number] Basophils/100 WBC (Bld) 1.5 % Normal 0.0-2.0 [facility] Comment on above: Performed By: #### 5 902-2 #### LINDA MCDANIELMOTZDASHA L ([id number]) [facility] ([facility]) [id number] [place] [phone] Eosinophils (Bld) [#/Vol] 0.45 x10*3/uL Normal 0.00-0.70 [facility] Comment on above: Performed By: #### 5 902-2 #### LINDA MCDANIELMOTZER L ([id number]) [facility] ([facility]) [id number] [place] [address]55 Eosinophils/100 WBC (Bld) 6.2 % Normal 0.0-6.0 [facility] Comment on above: Performed By: #### 5 902-2 #### LINDA Beckett ([id number]) [facility] ([facility]) [address] [place] [address]60 Erythrocyte distribution width (RBC) [Ratio] 14.2 % Normal 11.5-14.5 [facility] Comment on above: Performed By: #### 5 902-2 #### LINDA KUMARI L ([id number]) [facility] ([facility]) [address] [place] [address] Hematocrit (Bld) [Volume fraction] 41.0 % Normal 36.0-46.0 [facility] Comment on above: Performed By: #### 5 902-2 #### LINDA KUMARI L ([id number]) [facility] ([facility]) [address] [place] [address] 83020 Hemoglobin (Bld) [Mass/Vol] 12.6 g/dL Normal 12.0-16.0 [facility] Comment on above: Performed By: #### 5 902-2 #### LINDA KUMARI L ([id number]) [facility] ([facility]) [address] [place] [address] 18806 Immature granulocytes (Bld) [#/Vol] 0.03 x10*3/uL Normal 0.00-0.70 [facility] Comment on above: Performed By: #### 5 902-2 #### LINDA KUMARI L ([id number]) [facility] ([facility]) [address] [place] [address] 92582 Immature granulocytes/100 WBC (Bld) 0.4 % Normal 0.0-0.9 [facility] Comment on above: Result Comment: Ayala ture Granulocyte Count (IG) includes promyelocytes, myelocytes and metamyelocytes but does not include bands. Percent differential counts (%) should be interpreted in the context of the absolute cell counts (cells/UL). Performed By: #### 5 902-2 #### LINDA ELTZER L ([id number]) [facility] ([facility]) [address] [place] [address] Lymphocytes (Bld) [#/Vol] 2.82 x10*3/uL Normal 1.20-4.80 [facility] Comment on above: Performed By: #### 5 902-2 #### LINDA Beckett ([id number]) [facility] ([facility]) [id number] [place] [address] 49212 Lymphocytes/100 WBC (Bld) 38.7 % Normal 13.0-44.0 [facility] Comment on above: Performed By: #### 5 902-2 #### LINDA Beckett ([id number]) [facility] ([facility]) [address] [place] [address] 86602 MCH (RBC) [Entitic mass] 29.7 pg Normal 26.0-34.0 [facility] Comment on above: Performed By: #### 5 902-2 #### LINDA Beckett ([id number]) [facility] ([facility]) [address] [place] [address] 50717 MCHC (RBC) [Mass/Vol] 30.7 g/dL Low 32.0-36.0 [facility] Comment on above: Performed By: #### 5 902-2 #### LINDA Beckett ([id number]) [facility] ([facility]) [address] [place] [address] 66518 MCV (RBC) [Entitic vol] 97 fL Normal 80-100 [facility] Comment on above: Performed By: #### 5 902-2 #### LINDA Beckett ([id number]) [facility] ([facility]) [id number] [place] [address] 66980 Monocytes (Bld) [#/Vol] 0.65 x10*3/uL Normal 0.10-1.00 [facility] Comment on above: Performed By: #### 5 902-2 #### LINDA Beckett ([id number]) [facility] ([facility]) [address] [place] [address] 23900 Monocytes/100 WBC (Bld) 8.9 % Normal 2.0-10.0 [facility] Comment on above: Performed By: #### 5 902-2 #### LINDA Beckett ([id number]) [facility] ([facility]) [address] [place] [address] 63155 Neutrophils (Bld) [#/Vol] 3.23 x10*3/uL Normal 1.20-7.70 [facility] Comment on above: Result Comment: Perc ent differential counts (%) should be interpreted in the context of the absolute cell counts (cells/uL). Performed By: #### 5 902-2 #### LINDA Beckett ([id number]) [facility] ([facility]) [id number] [place] [address] 41018 Neutrophils/100 WBC (Bld) 44.3 % Normal 40.0-80.0 [facility] Comment on above: Performed By: #### 5 902-2 #### LINDA Beckett ([id number]) [facility] ([facility]) [id number] [place] [address] 08101 Nucleated RBC/100 WBC (Bld) [Ratio] 0.0 /100 WBCs Normal 0.0-0.0 [facility] Comment on above: Performed By: #### 5 902-2 #### LINDA Beckett ([id number]) [facility] ([facility]) [id number] [place] [address] 64140 Platelets (Bld) [#/Vol] 355 x10*3/uL Normal 150-450 [facility] Comment on above: Performed By: #### 5 902-2 #### LINDA Beckett ([id number]) [facility] ([facility]) [address] [place] [address] 88389 RBC (Bld) [#/Vol] 4.24 x10*6/uL Normal 4.00-5.20 [facility] Comment on above: Performed By: #### 5 902-2 #### LINDA Beckett ([id number]) [facility] ([facility]) [address] [place] [address] 35297 WBC (Bld) [#/Vol] 7.3 x10*3/uL Normal 4.4-11.3 [facility] Comment on above: Performed By: #### 5 902-2 #### LINDA Bekcett ([id number]) [facility] ([facility]) [address] [place] [address] 10283 Cobalaminson 03-22-2024 Cobalamin (Vitamin B12) [Mass/Vol] 138 pg/mL Low 211-911 [facility] Comment on above: Performed By: #### 5 902-2 #### LINDA Beckett ([id number]) [facility] ([facility]) [address] [place] [address] 82341 Comprehensive metabolic 2000 panelon 03-22-2024 Albumin BCP dye [Mass/Vol] 4.3 g/dL Normal 3.4-5.0 [facility] Comment on above: Performed By: #### 5 902-2 #### LINDA Beckett ([id number]) [facility] ([facility]) [address] [place] [address] 11625 ALP [Catalytic activity/Vol] 102 U/L Normal 33-136 [facility] Comment on above: Performed By: #### 5 902-2 #### LINDA Beckett ([id number]) [facility] ([facility]) [address] [place] [address] 84108 ALT With P-5'-P [Catalytic activity/Vol] 28 U/L Normal 7-45 [facility] Comment on above: Result Comment: Kathy ents treated with Sulfasalazine may generate falsely decreased results for ALT. Performed By: #### 5 902-2 #### LINDA Beckett ([id number]) [facility] ([facility]) [address] [place] [address] 52458 Anion gap [Moles/Vol] 12 mmol/L Normal 10-20 [facility] Comment on above: Performed By: #### 5 902-2 #### LINDA Beckett ([id number]) [facility] ([facility]) [address] [place] [address] 26546 AST With P-5'-P [Catalytic activity/Vol] 22 U/L Normal 9-39 [facility] Comment on above: Performed By: #### 5 902-2 #### LINDA Beckett ([id number]) [facility] ([facility]) [address] [place] [address] Bilirubin [Mass/Vol] 0.3 mg/dL Normal 0.0-1.2 [facility] Comment on above: Performed By: #### 5 902-2 #### LINDA Beckett ([id number]) [facility] ([facility]) [address] [place] [address] Calcium [Mass/Vol] 9.4 mg/dL Normal 8.6-10.[address] [facility] Comment on above: Performed By: #### 5 902-2 #### LINDA Beckett ([id number]) [facility] ([facility]) [address] [place] [address] Chloride [Moles/Vol] 112 mmol/L High 98-107 [facility] Comment on above: Performed By: #### 5 902-2 #### LINDA Beckett ([id number]) [facility] ([facility]) [address] [place] [address] CO2 [Moles/Vol] 24 mmol/L Normal 21-32 [facility] Comment on above: Performed By: #### 5 902-2 #### LINDA Beckett ([id number]) [facility] ([facility]) [address] [place] [address] Creatinine [Mass/Vol] 0.72 mg/dL Normal 0.50-1.05 [facility] Comment on above: Performed By: #### 5 902-2 #### LINDA Beckett ([id number]) [facility] ([facility]) [address] [place] [address] GFR/1.73 sq M.predicted MDRD (S/P/Bld) [Vol rate/Area] mL/min/{1.73_m2} Normal >60 [facility] Comment on above: Result Comment: Calc ulations of estimated GFR are performed using the 2020 CKD-EPI Study Refit equation without the race variable for the IDMS-Traceable creatinine methods. https://jasn.asnjournals.org/content/early/ASN.2020 830995 Performed By: #### 5 902-2 #### LINDA Beckett ([id number]) [facility] ([facility]) [address] [place] [address] Glucose [Mass/Vol] 88 mg/dL Normal 74-[address] [facility] Comment on above: Performed By: #### 5 902-2 #### LINDA KUMARI L ([id number]) [facility] ([facility]) [address] [place] [address] Potassium [Moles/Vol] 4.2 mmol/L Normal 3.5-5.3 [facility] Comment on above: Performed By: #### 5 902-2 #### LINDA KUMARI L ([id number]) [facility] ([facility]) [address] [place] [address] Protein [Mass/Vol] 6.9 g/dL Normal 6.4-8.[address] [facility] Comment on above: Performed By: #### 5 902-2 #### LINDA KUMARI L ([id number]) [facility] ([facility]) [address] [place] [address] Sodium [Moles/Vol] 144 mmol/L Normal 136-[address] [facility] Comment on above: Performed By: #### 5 902-2 #### LINDA MCDANIELMOJANNA L ([id number]) [facility] ([facility]) [address] [place] [address] Urea nitrogen [Mass/Vol] 13 mg/dL Normal 6-23 [facility] Comment on above: Performed By: #### 5 902-2 #### LINDA MCDANIELMOTZER L ([id number]) [facility] ([facility]) [address] [place] [address] Magnesiumon 03-22-2024 Magnesium [Mass/Vol] 1.77 mg/dL Normal 1.60-2.40 [facility] Comment on above: Performed By: #### 5 902-2 #### LINDA Beckett ([id number]) [facility] ([facility]) [address] [place] [address] 35404 Zincon 03-22-2024 Zinc [Mass/Vol] 79.3 ug/dL Normal 60.0-120.0 [facility] Comment on above: Result Comment: INTE RPRETIVE INFORMATION: Zinc, Serum or Plasma Elevated results may be due to skin or collection-related contamination, including the use of a noncertified metal-free collection/transport tube. If contamination concerns exist due to elevated levels of serum/plasma zinc, confirmation with a second specimen collected in a certified metal-free tube is recommended. Circulating zinc concentrations are dependent on albumin status and are depressed with malnutrition. Zinc may also be lowered with infection, inflammation, stress, oral contraceptives, and . Zinc may be elevated with zinc supplementation or fasting. Elevated zinc concentrations may interfere with copper absorption. This test was developed and its performance characteristics determined by [facility]. It has not been cleared or approved by the [place] Food and Drug Administration. This test was performed in a CLIA certified laboratory and is intended for clinical purposes. Performed By: [facility] [address] [place] [address] 50386 Medical Transcriber: Stephen Perez MD, PhD CLIA Number: [id number] Performed By: #### 5 902-2 #### LINDA Beckett ([id number]) [facility] ([facility]) [address] [place] [address] 66365 Gastroenterology Visit Repor ton 03-06-2024 Gastroenterology Visit Report [facility] Gastroenterology [address] [place] [address] OFFICE VISIT Date of Service: 03/06/24 MR#: [id number] Acct: [id number] Name: KAMILA PATEL Rep #: [id number] : 1955 Provider: DIRECTOR OF CARDIOPULMONARY SERVICES-C Shavon Ev ans Age/Sex: 68/F Location: [facility] Status: Signed Intake Intake Visit Reasons: Diarrhea Allergies No Known Allergies Allergy (Unverified 03/06/24 09:02) Medications ???Medication ???Instructions ???Recorded ???Confirmed ???Type lisinopril 20 mg tablet 20 mg PO BID 02/09/24 02/09/24 History colestipol 1 gram tablet 1 g PO ONCE #30 tabs 03/06/24 03/06/24 Rx famotidine 20 mg tablet 20 mg PO QDAY 03/06/24 03/06/24 History loperamide 2 mg capsule 2 mg PO Q6H PRN loose stool #45 03/06/24 03/06/24 Rx caps omeprazole 40 mg capsule,delayed 40 mg PO QDAY 03/06/24 03/06/24 History release Have you fallen in the past year?: No PFSH Medical History History of small bowel obstruction Fatigue Hypoproteinemia Hypomagnesemia Anemia B12 deficiency Chronic diarrhea Surgical History Hx of resection of small bowel HPI HPI Details: KAMILA PATEL, is a 68 F who presents to the office today for establishment with [facility] with complaints of watery diarrhea 15 times daily since her abdominal surgery 09.21.23. She denies difficulty chewing and swallowing, heartburn, reflux, nausea, vomiting, abdominal bloating, pain, constipation, hematochezia, and melena. She reports external and internal hemorrhoids that will flare; she currently uses external steroid ointment for relief of the area. She states that she drinks more Vitamin Water than regular water because she is so deficient in vitamins per her PCP, but shes definitely feels like she matches the volume of water lost via her stools. She denies fevers, chills, and weight loss. She reports history of heartburn and GERD, symptoms controlled by omeprazole 40mg daily. She reports that if she knows she needs to leave the house, she will stop eating early the day before, take loperamide that night and twice more that morning before leaving in order to control rushing to the restroom. When staying at home, she avoids use of loperamide and admits to urgency incontinence at times. ROS Const Constitutional: No chills, fatigue, fever(s) or weight change Eyes Eyes: No change in vision ENT ENT: No abnormal hearing or difficulty swallowing Resp Respiratory: No cough Cardio Cardiology: No chest pain at rest, chest pain with exertion or leg pain with exertion Gastro GI: Positive for diarrhea; No abdominal pain, belching, bloating, change in bowel habits, change in stool character, coffee ground emesis, constipation, cramping, heartburn, difficulty swallowing, feeling full early, excessive flatus, incontinent of stools, Vomiting blood/hematemesis, Blood in stool, loose stools, Black,tarry stools, nausea/dyspepsia, pain with swallowing, vomiting or other Genitourinary-Female: No difficulty urinating Musc Musculoskeletal: No abnormal gait, joint pain or leg pain with exertion Skin Skin: No yellowing of the eye or itchy eyes Neuro Neurology: No abnormal gait or abnormal hearing Psych Psychiatric: No anxiety and No depression Endo Endocrine: No cold intolerance, fatigue, heat intolerance or weight change Aller/Imm Allergy/Immunologic: No food intolerance or itchy eyes Ford/Lymp Hematologic/Lymphatic: No easy bleeding or easy bruising Exam Const General: cooperative, healthy appearing, comfortable and no acute distress Nutritional Appearance: average body habitus and well nourished Orientation: alert [facility] Head: normal to inspection Ears: hearing grossly normal bilaterally Nose: external nose normal Face and sinus: normal facial exam and face symmetric Eyes General: appearance normal, both eyes and all related structures Sclera: sclerae normal Neck Neck: normal visual inspection and full ROM Neck mass: No Chest Chest palpation inspection: normal inspection of the chest Resp Effort Inspection: normal respiratory effort, able to speak in complete sentences and symmetric chest movement GI Inspection: normal to inspection Auscultation: normal bowel sounds Palpation: soft and no hepatosplenomegaly Skin General: no rashes or lesions noted Neuro General: patient alert, patient awake, patient oriented x3 and moves all extremities Cognition: normal cognition Speech: speech normal Gait: normal gait Extrem General: full ROM Psych Appearance: well kempt Mental Status: mental status grossly normal Mood: congruent mood Affect: normal affect Speech and Movement: speech and movement normal Attitude: cooperative Thought Process: normal Assess (more content not included)... Normal [facility] CBC W Auto Differential pane l (Bld)on 12-27-2023 Basophils (Bld) [#/Vol] 0.08 x10*3/uL Normal 0.00-0.10 [facility] Comment on above: Performed By: #### 5 902-2 #### LINDA Beckett ([id number]) [facility] ([facility]) [address] [place] [address] 60556 Basophils/100 WBC (Bld) 1.2 % Normal 0.0-2.0 [facility] Comment on above: Performed By: #### 5 902-2 #### LINDA Beckett ([id number]) [facility] ([facility]) [address] [place] [address] 69577 Eosinophils (Bld) [#/Vol] 0.34 x10*3/uL Normal 0.00-0.70 [facility] Comment on above: Performed By: #### 5 902-2 #### LINDA Bekcett ([id number]) [facility] ([facility]) [address] [place] [address] 91833 Eosinophils/100 WBC (Bld) 5.0 % Normal 0.0-6.0 [facility] Comment on above: Performed By: #### 5 902-2 #### LINDA Beckett ([id number]) [facility] ([facility]) [address] [place] [address] 71954 Erythrocyte distribution width (RBC) [Ratio] 14.0 % Normal 11.5-14.5 [facility] Comment on above: Performed By: #### 5 902-2 #### LINDA Beckett ([id number]) [facility] ([facility]) [address] [place] [address] 36000 Hematocrit (Bld) [Volume fraction] 37.1 % Normal 36.0-46.0 [facility] Comment on above: Performed By: #### 5 902-2 #### LINDA Beckett ([id number]) [facility] ([facility]) [address] [place] [address] 85315 Hemoglobin (Bld) [Mass/Vol] 11.4 g/dL Low 12.0-16.0 [facility] Comment on above: Performed By: #### 5 902-2 #### LINDA Beckett ([id number]) [facility] ([facility]) [address] [place] [address] 27992 Immature granulocytes (Bld) [#/Vol] 0.03 x10*3/uL Normal 0.00-0.70 [facility] Comment on above: Performed By: #### 5 902-2 #### LINDA Beckett ([id number]) [facility] ([facility]) [address] [place] [address] 28521 Immature granulocytes/100 WBC (Bld) 0.4 % Normal 0.0-0.9 [facility] Comment on above: Result Comment: Ayala ture Granulocyte Count (IG) includes promyelocytes, myelocytes and metamyelocytes but does not include bands. Percent differential counts (%) should be interpreted in the context of the absolute cell counts (cells/UL). Performed By: #### 5 902-2 #### LINDA Beckett ([id number]) [facility] ([facility]) [id number] [place] [address] 59617 Lymphocytes (Bld) [#/Vol] 2.36 x10*3/uL Normal 1.20-4.80 [facility] Comment on above: Performed By: #### 5 902-2 #### LINDA Beckett ([id number]) [facility] ([facility]) [address] [place] [address] 30809 Lymphocytes/100 WBC (Bld) 34.4 % Normal 13.0-44.0 [facility] Comment on above: Performed By: #### 5 902-2 #### LINDA Beckett ([id number]) [facility] ([facility]) [address] [place] [address] 29774 MCH (RBC) [Entitic mass] 30.0 pg Normal 26.0-34.0 [facility] Comment on above: Performed By: #### 5 902-2 #### LINDA Beckett ([id number]) [facility] ([facility]) [address] [place] [address] MCHC (RBC) [Mass/Vol] 30.7 g/dL Low 32.0-36.0 [facility] Comment on above: Performed By: #### 5 902-2 #### LINDA Beckett ([id number]) [facility] ([facility]) [address] [place] [address] MCV (RBC) [Entitic vol] 98 fL Normal 80-100 [facility] Comment on above: Performed By: #### 5 902-2 #### LINDA Beckett ([id number]) [facility] ([facility]) [address] [place] [address] 02145 Monocytes (Bld) [#/Vol] 0.72 x10*3/uL Normal 0.10-1.00 [facility] Comment on above: Performed By: #### 5 902-2 #### LINDA Beckett ([id number]) [facility] ([facility]) [address] [place] [address] Monocytes/100 WBC (Bld) 10.5 % Normal 2.0-10.0 [facility] Comment on above: Performed By: #### 5 902-2 #### LINDA Beckett ([id number]) [facility] ([facility]) [address] [place] [address] Neutrophils (Bld) [#/Vol] 3.33 x10*3/uL Normal 1.20-7.70 [facility] Comment on above: Result Comment: Perc ent differential counts (%) should be interpreted in the context of the absolute cell counts (cells/uL). Performed By: #### 5 902-2 #### LINDA Beckett ([id number]) [facility] ([facility]) [address] [place] [address] Neutrophils/100 WBC (Bld) 48.5 % Normal 40.0-80.0 [facility] Comment on above: Performed By: #### 5 902-2 #### LINDA Beckett ([id number]) [facility] ([facility]) [address] [place] [address] Nucleated RBC/100 WBC (Bld) [Ratio] 0.0 /100 WBCs Normal 0.0-0.0 [facility] Comment on above: Performed By: #### 5 902-2 #### LINDA Beckett ([id number]) [facility] ([facility]) [address] [place] [address] 30740 Platelets (Bld) [#/Vol] 352 x10*3/uL Normal 150-450 [facility] Comment on above: Performed By: #### 5 902-2 #### LINDA Beckett ([id number]) [facility] ([facility]) [address] [place] [address] 74036 RBC (Bld) [#/Vol] 3.80 x10*6/uL Low 4.00-5.20 [facility] Comment on above: Performed By: #### 5 902-2 #### LINDA Beckett ([id number]) [facility] ([facility]) [address] [place] [address] 58864 WBC (Bld) [#/Vol] 6.9 x10*3/uL Normal 4.4-11.3 [facility] Comment on above: Performed By: #### 5 902-2 #### LINDA Beckett ([id number]) [facility] ([facility]) [address] [place] [address] 25236 Cobalaminson 12-27-2023 Cobalamin (Vitamin B12) [Mass/Vol] 193 pg/mL Low 211-911 [facility] Comment on above: Performed By: #### 5 902-2 #### LINDA Beckett ([id number]) [facility] ([facility]) [address] [place] [address] 06257 Comprehensive metabolic 2000 panelon 12-27-2023 Albumin BCP dye [Mass/Vol] 3.7 g/dL Normal 3.4-5.0 [facility] Comment on above: Performed By: #### 5 902-2 #### LINDA Beckett ([id number]) [facility] ([facility]) [address] [place] [address] ALP [Catalytic activity/Vol] 112 U/L Normal 33-136 [facility] Comment on above: Performed By: #### 5 902-2 #### LINDA KUMARI L ([id number]) [facility] ([facility]) [address] [place] [address] 20600 ALT With P-5'-P [Catalytic activity/Vol] 26 U/L Normal 7-45 [facility] Comment on above: Result Comment: Kathy ents treated with Sulfasalazine may generate falsely decreased results for ALT. Performed By: #### 5 902-2 #### LINDA Beckett ([id number]) [facility] ([facility]) [id number] [place] [address] 02548 Anion gap [Moles/Vol] 11 mmol/L Normal 10-20 [facility] Comment on above: Performed By: #### 5 902-2 #### LINDA Beckett ([id number]) [facility] ([facility]) [id number] [place] [address] 04153 AST With P-5'-P [Catalytic activity/Vol] 18 U/L Normal 9-39 [facility] Comment on above: Performed By: #### 5 902-2 #### LINDA Beckett ([id number]) [facility] ([facility]) [address] [place] [address] 96883 Bilirubin [Mass/Vol] 0.3 mg/dL Normal 0.0-1.2 [facility] Comment on above: Performed By: #### 5 902-2 #### LINDA Beckett ([id number]) [facility] ([facility]) [id number] [place] [address] 72752 Calcium [Mass/Vol] 8.9 mg/dL Normal 8.6-10.[address] [facility] Comment on above: Performed By: #### 5 902-2 #### LINDA KUMARI L ([id number]) [facility] ([facility]) [address] [place] [address] Chloride [Moles/Vol] 114 mmol/L High 98-107 [facility] Comment on above: Performed By: #### 5 902-2 #### LINDA MCDANIELMOTZER L ([id number]) [facility] ([facility]) [address] [place] [address] CO2 [Moles/Vol] 22 mmol/L Normal 21-32 [facility] Comment on above: Performed By: #### 5 902-2 #### LINDA KUMARI L ([id number]) [facility] ([facility]) [address] [place] [address] Creatinine [Mass/Vol] 0.71 mg/dL Normal 0.50-1.05 [facility] Comment on above: Performed By: #### 5 902-2 #### LINDA KUMARI L ([id number]) [facility] ([facility]) [id number] [place] [address] 19225 GFR/1.73 sq M.predicted MDRD (S/P/Bld) [Vol rate/Area] mL/min/{1.73_m2} Normal >60 [facility] Comment on above: Result Comment: Calc ulations of estimated GFR are performed using the 2020 CKD-EPI Study Refit equation without the race variable for the IDMS-Traceable creatinine methods. https://jasn.asnjournals.org/content/early//ASN.2020 923118 Performed By: #### 5 902-2 #### LINDA ELTZER L ([id number]) [facility] ([facility]) [address] [place] [address] Glucose [Mass/Vol] 88 mg/dL Normal 74-[address] [facility] Comment on above: Performed By: #### 5 902-2 #### LINDA TAVERASER L ([id number]) [facility] ([facility]) [address] [place] [address] Potassium [Moles/Vol] 3.9 mmol/L Normal 3.5-5.3 [facility] Comment on above: Performed By: #### 5 902-2 #### LINDA Beckett ([id number]) [facility] ([facility]) [address] [place] [address] 43795 Protein [Mass/Vol] 6.3 g/dL Low 6.4-8.[address] [facility] Comment on above: Performed By: #### 5 902-2 #### LINDA Beckett ([id number]) [facility] ([facility]) [address] [place] [address] 39569 Sodium [Moles/Vol] 143 mmol/L Normal 136-[address] [facility] Comment on above: Performed By: #### 5 902-2 #### LINDA Beckett ([id number]) [facility] ([facility]) [address] [place] [address] 54337 Urea nitrogen [Mass/Vol] 11 mg/dL Normal 6-23 [facility] Comment on above: Performed By: #### 5 902-2 #### LINDA Beckett ([id number]) [facility] ([facility]) [address] [place] [address] 48784 Ferritinon 12-27-2023 Ferritin [Mass/Vol] 24 ng/mL Normal 8-150 [facility] Comment on above: Performed By: #### 5 902-2 #### LINDA Beckett ([id number]) [facility] ([facility]) [address] [place] [address] 75624 Folateon 12-27-2023 Folate [Mass/Vol] ng/mL Normal >5.0 [facility] Comment on above: Order Comment: Low < 3.4Borderline 3.4-5.0Normal >5.0Patients receiving more than 5 mg/day of biotin may have interference in test results. A sample should be taken no sooner than eight hours after previous dose. Contact the testing laboratory for additional information. Performed By: #### 5 902-2 #### LINDA Beckett ([id number]) [facility] ([facility]) [address] [place] [address] 38160 Iron and Iron binding capaci ty panelon 12-27-2023 Iron [Mass/Vol] 32 ug/dL Low 35-150 [facility] Comment on above: Performed By: #### 5 902-2 #### LINDA Beckett ([id number]) [facility] ([facility]) [address] [place] [address] 97154 Iron binding capacity [Mass/Vol] 375 ug/dL Normal 240-445 [facility] Comment on above: Performed By: #### 5 902-2 #### LINDA Beckett ([id number]) [facility] ([facility]) [address] [place] [address] 94082 Iron binding capacity.unsaturated [Mass/Vol] 343 ug/dL Normal 110-370 [facility] Comment on above: Performed By: #### 5 902-2 #### LINDA Beckett ([id number]) [facility] ([facility]) [address] [place] [address] 44728 Iron saturation [Mass fraction] 9 % Low 25-45 [facility] Comment on above: Performed By: #### 5 902-2 #### LINAD Beckett ([id number]) [facility] ([facility]) [address] [place] [address] 31077 Magnesiumon 12-27-2023 Magnesium [Mass/Vol] 1.69 mg/dL Normal 1.60-2.40 [facility] Comment on above: Performed By: #### 5 902-2 #### LINDA Beckett ([id number]) [facility] ([facility]) [address] [place] [address] 00432 Methylmalonateon 12-27-2023 Methylmalonate [Moles/Vol] 0.25 umol/L Normal 0.00-0.40 [facility] Comment on above: Result Comment: INTE RPRETIVE INFORMATION: MMA Serum/Plasma, Vitamin B12 Status This test was developed and its performance characteristics determined by [employer]. It has not been cleared or approved by the US Food and Drug Administration. This test was performed in a CLIA certified laboratory and is intended for clinical purposes. Performed By: [facility] [address] [place] [address] 24762 Medical Transcriber: Stephen Perez MD, PhD CLIA Number: [id number] Performed By: #### 5 902-2 #### LINDA Beckett ([id number]) [facility] ([facility]) [address] [place], [place] [address] Zincon 12-27-2023 Zinc [Mass/Vol] 68.8 ug/dL Normal 60.0-120.0 [facility] Comment on above: Result Comment: INTE RPRETIVE INFORMATION: Zinc, Serum or Plasma Elevated results may be due to skin or collection-related contamination, including the use of a noncertified metal-free collection/transport tube. If contamination concerns exist due to elevated levels of serum/plasma zinc, confirmation with a second specimen collected in a certified metal-free tube is recommended. Circulating zinc concentrations are dependent on albumin status and are depressed with malnutrition. Zinc may also be lowered with infection, inflammation, stress, oral contraceptives, and . Zinc may be elevated with zinc supplementation or fasting. Elevated zinc concentrations may interfere with copper absorption. This test was developed and its performance characteristics determined by [employer]. It has not been cleared or approved by the US Food and Drug Administration. This test was performed in a CLIA certified laboratory and is intended for clinical purposes. Performed By: [facility] [address] [place] [address] 14543 Medical Transcriber: Stephen Perez MD, PhD CLIA Number: [id number] Performed By: #### 5 902-2 #### LINDA Beckett ([id number]) [facility] ([facility]) [address] [place], [place] [address] CBC W Auto Differential pane l (Bld)on 11-07-2023 Basophils (Bld) [#/Vol] 0.12 x10*3/uL High 0.00-0.10 [facility] Comment on above: Performed By: #### 2 341-6 #### LINDA Beckett ([id number]) [facility] ([facility]) [id number] [place] [address] 10879 Basophils/100 WBC (Bld) 1.7 % Normal 0.0-2.0 [facility] Comment on above: Performed By: #### 2 341-6 #### LINDA Beckett ([id number]) [facility] ([facility]) [address] [place] [address] 26737 Eosinophils (Bld) [#/Vol] 0.57 x10*3/uL Normal 0.00-0.70 [facility] Comment on above: Performed By: #### 2 341-6 #### LINDA Beckett ([id number]) [facility] ([facility]) [address] [place] [address] 83862 Eosinophils/100 WBC (Bld) 8.1 % Normal 0.0-6.0 [facility] Comment on above: Performed By: #### 2 341-6 #### LINDA Beckett ([id number]) [facility] ([facility]) [address] [place] [address] 34160 Erythrocyte distribution width (RBC) [Ratio] 15.9 % High 11.5-14.5 [facility] Comment on above: Performed By: #### 2 341-6 #### LINDA Beckett ([id number]) [facility] ([facility]) [address] [place] [address] 02293 Hematocrit (Bld) [Volume fraction] 31.9 % Low 36.0-46.0 [facility] Comment on above: Performed By: #### 2 341-6 #### LINDA Beckett ([id number]) [facility] ([facility]) [address] [place] [address] 88703 Hemoglobin (Bld) [Mass/Vol] 10.2 g/dL Low 12.0-16.0 [facility] Comment on above: Performed By: #### 2 341-6 #### LINDA Beckett ([id number]) [facility] ([facility]) [address] [place] [address] 45624 Immature granulocytes (Bld) [#/Vol] 0.02 x10*3/uL Normal 0.00-0.70 [facility] Comment on above: Performed By: #### 2 341-6 #### LINDA Beckett ([id number]) [facility] ([facility]) [address] [place] [address] 68594 Immature granulocytes/100 WBC (Bld) 0.3 % Normal 0.0-0.9 [facility] Comment on above: Result Comment: Ayala ture Granulocyte Count (IG) includes promyelocytes, myelocytes and metamyelocytes but does not include bands. Percent differential counts (%) should be interpreted in the context of the absolute cell counts (cells/UL). Performed By: #### 2 341-6 #### LINDA Beckett ([id number]) [facility] ([facility]) [address] [place] [address] 69572 Lymphocytes (Bld) [#/Vol] 2.49 x10*3/uL Normal 1.20-4.80 [facility] Comment on above: Performed By: #### 2 341-6 #### LINDA Beckett ([id number]) [facility] ([facility]) [address] [place] [address] 38877 Lymphocytes/100 WBC (Bld) 35.3 % Normal 13.0-44.0 [facility] Comment on above: Performed By: #### 2 341-6 #### LINDA Beckett ([id number]) [facility] ([facility]) [address] [place] [address] 37046 MCH (RBC) [Entitic mass] 31.0 pg Normal 26.0-34.0 [facility] Comment on above: Performed By: #### 2 341-6 #### LINDA Beckett ([id number]) [facility] ([facility]) [address] [place] [address] 34622 MCHC (RBC) [Mass/Vol] 32.0 g/dL Normal 32.0-36.0 [facility] Comment on above: Performed By: #### 2 341-6 #### LINDA Beckett ([id number]) [facility] ([facility]) [address] [place] [address] MCV (RBC) [Entitic vol] 97 fL Normal 80-100 [facility] Comment on above: Performed By: #### 2 341-6 #### LINDA Beckett ([id number]) [facility] ([facility]) [address] [place] [address] 29370 Monocytes (Bld) [#/Vol] 0.73 x10*3/uL Normal 0.10-1.00 [facility] Comment on above: Performed By: #### 2 341-6 #### LINDA Beckett ([id number]) [facility] ([facility]) [address] [place] [address] 10838 Monocytes/100 WBC (Bld) 10.3 % Normal 2.0-10.0 [facility] Comment on above: Performed By: #### 2 341-6 #### LINDA Beckett ([id number]) [facility] ([facility]) [address] [place] [address] 62047 Neutrophils (Bld) [#/Vol] 3.13 x10*3/uL Normal 1.20-7.70 [facility] Comment on above: Result Comment: Perc ent differential counts (%) should be interpreted in the context of the absolute cell counts (cells/uL). Performed By: #### 2 341-6 #### LINDA Beckett ([id number]) [facility] ([facility]) [address] [place] [address] 75936 Neutrophils/100 WBC (Bld) 44.3 % Normal 40.0-80.0 [facility] Comment on above: Performed By: #### 2 341-6 #### LINDA Beckett ([id number]) [facility] ([facility]) [address] [place] [address] Nucleated RBC/100 WBC (Bld) [Ratio] 0.0 /100 WBCs Normal 0.0-0.0 [facility] Comment on above: Performed By: #### 2 341-6 #### LINDA Beckett ([id number]) [facility] ([facility]) [address] [place] [address] Platelets (Bld) [#/Vol] 307 x10*3/uL Normal 150-450 [facility] Comment on above: Performed By: #### 2 341-6 #### LINDA Beckett ([id number]) [facility] ([facility]) [address] [place] [address] 96972 RBC (Bld) [#/Vol] 3.29 x10*6/uL Low 4.00-5.20 [facility] Comment on above: Performed By: #### 2 341-6 #### LINDA Beckett ([id number]) [facility] ([facility]) [address] [place] [address] 70427 WBC (Bld) [#/Vol] 7.1 x10*3/uL Normal 4.4-11.3 [facility] Comment on above: Performed By: #### 2 341-6 #### LINDA Beckett ([id number]) [facility] ([facility]) [address] [place] [address] 75474 Cobalaminson 11-07-2023 Cobalamin (Vitamin B12) [Mass/Vol] 193 pg/mL Low 211-911 [facility] Comment on above: Performed By: #### 5 902-2 #### LINDA Beckett ([id number]) [facility] ([facility]) [address] [place] [address] 08278 Comprehensive metabolic 2000 panelon 11-07-2023 Albumin BCP dye [Mass/Vol] 2.9 g/dL Low 3.4-5.0 [facility] Comment on above: Performed By: #### 2 341-6 #### LINDA Beckett ([id number]) [facility] ([facility]) [address] [place] [address] 29156 ALP [Catalytic activity/Vol] 93 U/L Normal 33-136 [facility] Comment on above: Performed By: #### 2 341-6 #### LINDA Beckett ([id number]) [facility] ([facility]) [address] [place] [address] ALT With P-5'-P [Catalytic activity/Vol] 13 U/L Normal 7-45 [facility] Comment on above: Result Comment: Kathy ents treated with Sulfasalazine may generate falsely decreased results for ALT. Performed By: #### 2 341-6 #### LINDA Beckett ([id number]) [facility] ([facility]) [address] [place] [address] Anion gap [Moles/Vol] 9 mmol/L Low 10-20 [facility] Comment on above: Performed By: #### 2 341-6 #### LINDA Beckett ([id number]) [facility] ([facility]) [address] [place] [address] 44739 AST With P-5'-P [Catalytic activity/Vol] 15 U/L Normal 9-39 [facility] Comment on above: Performed By: #### 2 341-6 #### LINDA Beckett ([id number]) [facility] ([facility]) [address] [place] [address] Bilirubin [Mass/Vol] 0.3 mg/dL Normal 0.0-1.2 [facility] Comment on above: Performed By: #### 2 341-6 #### LINDA KUMARI L ([id number]) [facility] ([facility]) [address] [place] [address] Calcium [Mass/Vol] 7.8 mg/dL Low 8.6-10.[address] [facility] Comment on above: Performed By: #### 2 341-6 #### LINDA KUMARI L ([id number]) [facility] ([facility]) [address] [place] [address] Chloride [Moles/Vol] 113 mmol/L High 98-107 [facility] Comment on above: Performed By: #### 2 341-6 #### LINDA KUMARI L ([id number]) [facility] ([facility]) [address] [place] [address] 21042 CO2 [Moles/Vol] 22 mmol/L Normal 21-32 [facility] Comment on above: Performed By: #### 2 341-6 #### LINDA Beckett ([id number]) [facility] ([facility]) [address] [place] [address] Creatinine [Mass/Vol] 0.52 mg/dL Normal 0.50-1.05 [facility] Comment on above: Performed By: #### 2 341-6 #### LINDA Beckett ([id number]) [facility] ([facility]) [address] [place] [address] GFR/1.73 sq M.predicted MDRD (S/P/Bld) [Vol rate/Area] mL/min/{1.73_m2} Normal >60 [facility] Comment on above: Result Comment: Calc ulations of estimated GFR are performed using the 2020 CKD-EPI Study Refit equation without the race variable for the IDMS-Traceable creatinine methods. https://jasn.asnjournals.org/content/early//ASN.2020 704585 Performed By: #### 2 341-6 #### LINDA Beckett ([id number]) [facility] ([facility]) [address] [place] [address] 67789 Glucose [Mass/Vol] 96 mg/dL Normal 74-[address] [facility] Comment on above: Performed By: #### 2 341-6 #### LINDA Beckett ([id number]) [facility] ([facility]) [address] [place] [address] Potassium [Moles/Vol] 3.4 mmol/L Low 3.5-5.3 [facility] Comment on above: Performed By: #### 2 341-6 #### LINDA Beckett ([id number]) [facility] ([facility]) [address] [place] [address] 20274 Protein [Mass/Vol] 4.9 g/dL Low 6.4-8.[address] [facility] Comment on above: Performed By: #### 2 341-6 #### LINDA Beckett ([id number]) [facility] ([facility]) [address] [place] [address] 20653 Sodium [Moles/Vol] 141 mmol/L Normal 136-[address] [facility] Comment on above: Performed By: #### 2 341-6 #### LINDA Beckett ([id number]) [facility] ([facility]) [address] [place] [address] 12204 Urea nitrogen [Mass/Vol] 6 mg/dL Normal 6-23 [facility] Comment on above: Performed By: #### 2 341-6 #### LINDA Beckett ([id number]) [facility] ([facility]) [address] [place] [address] 32100 Ferritinon 11-07-2023 Ferritin [Mass/Vol] 33 ng/mL Normal 8-150 [facility] Comment on above: Performed By: #### 2 341-6 #### LINDA Beckett ([id number]) [facility] ([facility]) [address] [place] [address] 49202 Folateon 11-07-2023 Folate [Mass/Vol] 19.0 ng/mL Normal >5.0 [facility] Comment on above: Order Comment: Low < 3.4Borderline 3.4-5.0Normal >5.0Patients receiving more than 5 mg/day of biotin may have interference in test results. A sample should be taken no sooner than eight hours after previous dose. Contact the testing laboratory for additional information. Performed By: #### 5 902-2 #### LINDA Beckett ([id number]) [facility] ([facility]) [address] [place] [address] 34930 Iron and Iron binding capaci ty panelon 11-07-2023 Iron [Mass/Vol] 54 ug/dL Normal 35-150 [facility] Comment on above: Performed By: #### 2 341-6 #### LINDA Beckett ([id number]) [facility] ([facility]) [address] [place] [address] [place] [address] Iron binding capacity [Mass/Vol] 242 ug/dL Normal 240-445 [facility] Comment on above: Performed By: #### 2 341-6 #### LINDA Beckett ([id number]) [facility] ([facility]) [address] [place] [address] 27379 Iron binding capacity.unsaturated [Mass/Vol] 188 ug/dL Normal 110-370 [facility] Comment on above: Performed By: #### 2 341-6 #### LINDA Beckett ([id number]) [facility] ([facility]) [address] [place] [address] 76046 Iron saturation [Mass fraction] 22 % Low 25-45 [facility] Comment on above: Performed By: #### 2 341-6 #### LINDA Beckett ([id number]) [facility] ([facility]) [address] [place] [address] 96401 Magnesiumon 11-07-2023 Magnesium [Mass/Vol] 1.47 mg/dL Low 1.60-2.40 [facility] Comment on above: Performed By: #### 2 341-6 #### LINDA Beckett (69798) [facility] ([facility]) [address] [place] [address] 44059 Methylmalonateon 11-07-2023 Methylmalonate [Moles/Vol] 0.27 umol/L Normal 0.00-0.40 [facility] Comment on above: Result Comment: INTE RPRETIVE INFORMATION: MMA Serum/Plasma, Vitamin B12 Status This test was developed and its performance characteristics determined by [employer]. It has not been cleared or approved by the US Food and Drug Administration. This test was performed in a CLIA certified laboratory and is intended for clinical purposes. Performed By: [employer] [address] [place] [address] 23418 Medical Transcriber: Stephen Perez MD, PhD CLIA Number: [id number] Performed By: #### 5 902-2 #### LINDA Beckett ([id number]) [facility] ([facility]) [address] [place] [address] 51128 TSH WITH REFLEX TO FREE T4 I F ABNORMALon 11-07-2023 TSH Qn 1.49 m[IU]/L Normal 0.44-3.98 [facility] Comment on above: Order Comment: TSH t esting is performed using different testing methodology at [facility] than at other [facility]. Direct result comparisons should only be made within the same method. Performed By: #### 5 902-2 #### LINDA Beckett ([id number]) [facility] ([facility]) [address] [place], [place] [address] Zincon 11-07-2023 Zinc [Mass/Vol] 45.1 ug/dL Low 60.0-120.0 [facility] Comment on above: Result Comment: INTE RPRETIVE INFORMATION: Zinc, Serum or Plasma Elevated results may be due to skin or collection-related contamination, including the use of a noncertified metal-free collection/transport tube. If contamination concerns exist due to elevated levels of serum/plasma zinc, confirmation with a second specimen collected in a certified metal-free tube is recommended. Circulating zinc concentrations are dependent on albumin status and are depressed with malnutrition. Zinc may also be lowered with infection, inflammation, stress, oral contraceptives, and . Zinc may be elevated with zinc supplementation or fasting. Elevated zinc concentrations may interfere with copper absorption. This test was developed and its performance characteristics determined by [employer]. It has not been cleared or approved by the US Food and Drug Administration. This test was performed in a CLIA certified laboratory and is intended for clinical purposes. Performed By: [facility] [facility] [address] [place] [address] 97127 Medical Transcriber: Stephen Perez MD, PhD CLIA Number: [id number] Performed By: #### 5 902-2 #### LINDA Beckett ([id number]) [facility] ([facility]) [address] [place] [address] 68750 Bacteria identified Cx Nom ( U)Ordered By: Jenni Strong on 10-06-2023 Interpretation and review of laboratory results Normal [facility] Magnesiumon 10-06-2023 Magnesium [Mass/Vol] 1.40 mg/dL Low 1.60 - 2.40 mg/dL [facility] Magnesium [Mass/Vol] 1.40 mg/dL Low 1.60-2.40 [facility] Comment on above: Performed By: #### 2 341-6 #### LINDA Beckett ([id number]) [facility] ([facility]) [address] [place] [address] No Panel Informationon 10-05 Interpretation and review of laboratory results Abnormal [facility] Renal function 2000 panelon 10-06-2023 Albumin BCP dye [Mass/Vol] 2.3 g/dL Low 3.4 - 5.0 g/dL [facility] Anion gap [Moles/Vol] 10 mmol/L 10 - 2 0 mmol/L [facility] Calcium [Mass/Vol] 7.9 mg/dL Low 8.6 - 10. 6 mg/dL [facility] Chloride [Moles/Vol] 107 mmol/L 98 - 10 7 mmol/L [facility] CO2 [Moles/Vol] 30 mmol/L 21 - 32 mmol/L [facility] Creatinine [Mass/Vol] 0.44 mg/dL Low 0.50 - 1.05 mg/dL [facility] eGFR - PINF [facility] Comment on above: Calculations of manjula mated GFR are performed using the 2020 CKD-EPI Study Refit equation without the race variable for the IDMS-Traceable creatinine methods. https://jasn.asnjournals.org/content//ASN.2020 362634 Glucose [Mass/Vol] 89 mg/dL 74 - 99 mg/dL [facility] Phosphate [Mass/Vol] 2.4 mg/dL Low 2.5 - 4 .9 mg/dL [facility] Comment on above: The performance donnell acteristics of phosphorus testing in heparinized plasma have been validated by the individual laboratory site where testing is performed. Testing on heparinized plasma is not approved by the FDA; however, such approval is not necessary. Potassium [Moles/Vol] 4.0 mmol/L 3.5 - 5.3 mmol/L [facility] Sodium [Moles/Vol] 143 mmol/L 136 - 145 mmol/L [facility] Urea nitrogen [Mass/Vol] 5 mg/dL Low 6 - 23 mg/dL [facility] Albumin BCP dye [Mass/Vol] 2.3 g/dL Low 3.4-5.0 [facility] Comment on above: Performed By: #### 2 341-6 #### LINDA Beckett ([id number]) [facility] ([facility]) [address] [place] [address] Anion gap [Moles/Vol] 10 mmol/L Normal 10-20 [facility] Comment on above: Performed By: #### 2 341-6 #### LINDA Beckett ([id number]) [facility] ([facility]) [address] [place] [address] 00231 Calcium [Mass/Vol] 7.9 mg/dL Low 8.6-10.[address] [facility] Comment on above: Performed By: #### 2 341-6 #### LINDA Beckett ([id number]) [facility] ([facility]) [address] [place] [address] 69297 Chloride [Moles/Vol] 107 mmol/L Normal 98-107 [facility] Comment on above: Performed By: #### 2 341-6 #### LINDA Beckett ([id number]) [facility] ([facility]) [id number] [place] [address] 73346 CO2 [Moles/Vol] 30 mmol/L Normal 21-32 [facility] Comment on above: Performed By: #### 2 341-6 #### LINDA Beckett ([id number]) [facility] ([facility]) [id number] [place] [address] 04945 Creatinine [Mass/Vol] 0.44 mg/dL Low 0.50-1.05 [facility] Comment on above: Performed By: #### 2 341-6 #### LINDA Beckett ([id number]) [facility] ([facility]) [id number] [place] [address] 78563 GFR/1.73 sq M.predicted MDRD (S/P/Bld) [Vol rate/Area] mL/min/{1.73_m2} Normal >60 [facility] Comment on above: Result Comment: Calc ulations of estimated GFR are performed using the 2020 CKD-EPI Study Refit equation without the race variable for the IDMS-Traceable creatinine methods. https://jasn.asnjournals.org/content//ASN.2020 546767 Performed By: #### 2 341-6 #### LINDA Beckett ([id number]) [facility] ([facility]) [address] [place] [address] Glucose [Mass/Vol] 89 mg/dL Normal 74-[address] [facility] Comment on above: Performed By: #### 2 341-6 #### LINDA Beckett ([id number]) [facility] ([facility]) [id number] [place] [address] 91685 Phosphate [Mass/Vol] 2.4 mg/dL Low 2.5-4.9 [facility] Comment on above: Result Comment: The performance characteristics of phosphorus testing in heparinized plasma have been validated by the individual laboratory site where testing is performed. Testing on heparinized plasma is not approved by the FDA; however, such approval is not necessary. Performed By: #### 2 341-6 #### LINDA Beckett ([id number]) [facility] ([facility]) [address] [place] [address] Potassium [Moles/Vol] 4.0 mmol/L Normal 3.5-5.3 [facility] Comment on above: Performed By: #### 2 341-6 #### LINDA Beckett ([id number]) [facility] ([facility]) [address] [place] [address] Sodium [Moles/Vol] 143 mmol/L Normal 136-[address] [facility] Comment on above: Performed By: #### 2 341-6 #### LINDA Beckett ([id number]) [facility] ([facility]) [address] [place] [address] 91725 Urea nitrogen [Mass/Vol] 5 mg/dL Low 6-23 [facility] Comment on above: Performed By: #### 2 341-6 #### LINDA Beckett ([id number]) [facility] ([facility]) [address] [place], [place] [id number] Urine CultureOrdered By: Lencho Strong on 10-06-2023 Bacteria identified Cx Nom (U) Normal genitourinary jamal [facility] Basic metabolic 2000 panelon 10-05-2023 Anion gap [Moles/Vol] 13 mmol/L [facility] Calcium [Mass/Vol] 8.2 mg/dL Low 8.6 - 10. 6 mg/dL [facility] Chloride [Moles/Vol] 105 mmol/L 98 - 10 7 mmol/L [facility] CO2 [Moles/Vol] 26 mmol/L 21 - 32 mmol/L [facility] Creatinine [Mass/Vol] 0.47 mg/dL Low 0.50 - 1.05 mg/dL [facility] eGFR - PINF [facility] Comment on above: Calculations of manjula mated GFR are performed using the 2020 CKD-EPI Study Refit equation without the race variable for the IDMS-Traceable creatinine methods. https://jasn.asnjournals.org/content/early/ASN.2020 022012 Glucose [Mass/Vol] 129 mg/dL High 74 - 99 mg/dL [facility] Interpretation and review of laboratory results Abnormal [facility] Potassium [Moles/Vol] 2.7 mmol/L Critically low 3.5 - 5.3 mmol/L [facility] Sodium [Moles/Vol] 141 mmol/L 136 - 145 mmol/L [facility] Urea nitrogen [Mass/Vol] 12 mg/dL 6 - 23 mg/dL [facility] Anion gap [Moles/Vol] 13 mmol/L Normal Uni [facility] Comment on above: Performed By: #### 2 341-6 #### LINDA Beckett ([id number]) [facility] ([facility]) [address] [place] [address] Calcium [Mass/Vol] 8.2 mg/dL Low 8.6-10.[address] [facility] Comment on above: Performed By: #### 2 341-6 #### LINDA Beckett ([id number]) [facility] ([facility]) [address] [place] [address] Chloride [Moles/Vol] 105 mmol/L Normal 98-107 [facility] Comment on above: Performed By: #### 2 341-6 #### LINDA Beckett ([id number]) [facility] ([facility]) [address] [place] [address] CO2 [Moles/Vol] 26 mmol/L Normal 21-32 [facility] Comment on above: Performed By: #### 2 341-6 #### LINDA Beckett ([id number]) [facility] ([facility]) [address] [place] [address] Creatinine [Mass/Vol] 0.47 mg/dL Low 0.50-1.05 [facility] Comment on above: Performed By: #### 2 341-6 #### LINDA Beckett ([id number]) [facility] ([facility]) [address] [place] [address] GFR/1.73 sq M.predicted MDRD (S/P/Bld) [Vol rate/Area] mL/min/{1.73_m2} Normal >60 [facility] Comment on above: Result Comment: Calc ulations of estimated GFR are performed using the 2020 CKD-EPI Study Refit equation without the race variable for the IDMS-Traceable creatinine methods. https://jasn.asnjournals.org/content//ASN.2020 452571 Performed By: #### 2 341-6 #### LINDA Beckett ([id number]) [facility] ([facility]) [address] [place] [address] Glucose [Mass/Vol] 129 mg/dL High 74-[address] [facility] Comment on above: Performed By: #### 2 341-6 #### LINDA Beckett ([id number]) [facility] ([facility]) [address] [place] [address] Potassium [Moles/Vol] 2.7 mmol/L Critically low 3.5-5.3 [facility] Comment on above: Performed By: #### 2 341-6 #### LINDA Beckett ([id number]) [facility] ([facility]) [address] [place] [address] 58314 Sodium [Moles/Vol] 141 mmol/L Normal 136-[address] [facility] Comment on above: Performed By: #### 2 341-6 #### LINDA Beckett ([id number]) [facility] ([facility]) [address] [place] [address] 74072 Urea nitrogen [Mass/Vol] 12 mg/dL Normal 6-23 [facility] Comment on above: Performed By: #### 2 341-6 #### LINDA Beckett ([id number]) [facility] ([facility]) [address] [place] [address] 84593 CBC panel Auto (Bld)on 10-04 Erythrocyte distribution width (RBC) [Ratio] 12.6 % 11.5 - 14.5 % [facility] Hematocrit (Bld) [Volume fraction] 21.9 % Low 36.0 - 46.0 % [facility] Hemoglobin (Bld) [Mass/Vol] 8.0 g/dL Low 12.0 - 16.0 g/dL [facility] Interpretation and review of laboratory results Abnormal [facility] MCH (RBC) [Entitic mass] 31.3 pg 26.0 - 34.0 pg [facility] MCHC (RBC) [Mass/Vol] 36.5 g/dL High 32.0 - 36.0 g/dL [facility] MCV (RBC) [Entitic vol] 86 fL 80 - 100 fL [facility] Nucleated RBC/100 WBC (Bld) [Ratio] 0.0 % [facility] Platelets (Bld) [#/Vol] 425 10*3/uL [facility] RBC (Bld) [#/Vol] 2.56 10*6/uL Low [facility] WBC (Bld) [#/Vol] 8.6 10*3/uL [facility] Erythrocyte distribution width (RBC) [Ratio] 12.6 % Normal 11.5-14.5 [facility] Comment on above: Performed By: #### 2 341-6 #### LINDA Beckett ([id number]) [facility] ([facility]) [address] [place] [address] 56475 Hematocrit (Bld) [Volume fraction] 21.9 % Low 36.0-46.0 [facility] Comment on above: Performed By: #### 2 341-6 #### LINDA Beckett ([id number]) [facility] ([facility]) [address] [place] [address] 81051 Hemoglobin (Bld) [Mass/Vol] 8.0 g/dL Low 12.0-16.0 [facility] Comment on above: Performed By: #### 2 341-6 #### LINDA Beckett ([id number]) [facility] ([facility]) [address] [place] [address] 67476 MCH (RBC) [Entitic mass] 31.3 pg Normal 26.0-34.0 [facility] Comment on above: Performed By: #### 2 341-6 #### LINDA Beckett ([id number]) [facility] ([facility]) [address] [place] [address] MCHC (RBC) [Mass/Vol] 36.5 g/dL High 32.0-36.0 [facility] Comment on above: Performed By: #### 2 341-6 #### LINDA Beckett ([id number]) [facility] ([facility]) [address] [place] [address] 69753 MCV (RBC) [Entitic vol] 86 fL Normal 80-100 [facility] Comment on above: Performed By: #### 2 341-6 #### LINDA Beckett ([id number]) [facility] ([facility]) [address] [place] [address] Nucleated RBC/100 WBC (Bld) [Ratio] 0.0 /100 WBCs Normal 0.0-0.0 [facility] Comment on above: Performed By: #### 2 341-6 #### LINDA Beckett ([id number]) [facility] ([facility]) [address] [place] [address] 92081 Platelets (Bld) [#/Vol] 425 x10*3/uL Normal 150-450 [facility] Comment on above: Performed By: #### 2 341-6 #### LINDA Beckett ([id number]) [facility] ([facility]) [address] [place] [address] 42299 RBC (Bld) [#/Vol] 2.56 x10*6/uL Low 4.00-5.20 [facility] Comment on above: Performed By: #### 2 341-6 #### LINDA Beckett ([id number]) [facility] ([facility]) [address] [place] [address] 84419 WBC (Bld) [#/Vol] 8.6 x10*3/uL Normal 4.4-11.3 [facility] Comment on above: Performed By: #### 2 341-6 #### LINDA Beckett ([id number]) [facility] ([facility]) [address] [place] [address] 86204 Extra Urine Coles Tubeon Extra Tube Hold for add-ons. [facility] Comment on above: Auto resulted. [facility] Renal function 2000 panelon 10-05-2023 Albumin BCP dye [Mass/Vol] 2.5 g/dL Low 3.4 - 5.0 g/dL [facility] Anion gap [Moles/Vol] 10 mmol/L 10 - 2 0 mmol/L [facility] Calcium [Mass/Vol] 8.0 mg/dL Low 8.6 - 10. 6 mg/dL [facility] Chloride [Moles/Vol] 104 mmol/L 98 - 10 7 mmol/L [facility] CO2 [Moles/Vol] 32 mmol/L 21 - 32 mmol/L [facility] Creatinine [Mass/Vol] 0.48 mg/dL Low 0.50 - 1.05 mg/dL [facility] eGFR - PINF [facility] Comment on above: Calculations of manjula mated GFR are performed using the 2020 CKD-EPI Study Refit equation without the race variable for the IDMS-Traceable creatinine methods. https://jasn.asnjournals.org/content/early/ASN.2020 120386 Glucose [Mass/Vol] 110 mg/dL High 74 - 99 mg/dL [facility] Interpretation and review of laboratory results Abnormal [facility] Phosphate [Mass/Vol] 1.5 mg/dL Low 2.5 - 4 .9 mg/dL [facility] Comment on above: The performance donnell acteristics of phosphorus testing in heparinized plasma have been validated by the individual laboratory site where testing is performed. Testing on heparinized plasma is not approved by the FDA; however, such approval is not necessary. Potassium [Moles/Vol] 3.3 mmol/L Low 3.5 - 5.3 mmol/L [facility] Sodium [Moles/Vol] 143 mmol/L 136 - 145 mmol/L [facility] Urea nitrogen [Mass/Vol] 6 mg/dL 6 - 23 mg/dL [facility] Albumin BCP dye [Mass/Vol] 2.5 g/dL Low 3.4-5.0 [facility] Comment on above: Performed By: #### 2 341-6 #### LINDA Beckett ([id number]) [facility] ([facility]) [address] [place] [address] 02822 Anion gap [Moles/Vol] 10 mmol/L Normal 10-20 [facility] Comment on above: Performed By: #### 2 341-6 #### LINDA Beckett ([id number]) [facility] ([facility]) [address] [place] [address] 16185 Calcium [Mass/Vol] 8.0 mg/dL Low 8.6-10.[address] [facility] Comment on above: Performed By: #### 2 341-6 #### LINDA Beckett ([id number]) [facility] ([facility]) [address] [place] [address] Chloride [Moles/Vol] 104 mmol/L Normal 98-107 [facility] Comment on above: Performed By: #### 2 341-6 #### LINDA Beckett ([id number]) [facility] ([facility]) [address] [place] [address] CO2 [Moles/Vol] 32 mmol/L Normal 21-32 [facility] Comment on above: Performed By: #### 2 341-6 #### LINDA Beckett ([id number]) [facility] ([facility]) [address] [place] [address] Creatinine [Mass/Vol] 0.48 mg/dL Low 0.50-1.05 [facility] Comment on above: Performed By: #### 2 341-6 #### LINDA Beckett ([id number]) [facility] ([facility]) [address] [place] [address] GFR/1.73 sq M.predicted MDRD (S/P/Bld) [Vol rate/Area] mL/min/{1.73_m2} Normal >60 [facility] Comment on above: Result Comment: Calc ulations of estimated GFR are performed using the 2020 CKD-EPI Study Refit equation without the race variable for the IDMS-Traceable creatinine methods. https://jasn.asnjournals.org/content/early//ASN.2020 638249 Performed By: #### 2 341-6 #### LINDA Beckett ([id number]) [facility] ([facility]) [address] [place] [address] Glucose [Mass/Vol] 110 mg/dL High 74-[address] [facility] Comment on above: Performed By: #### 2 341-6 #### LINDA Beckett ([id number]) [facility] ([facility]) [address] [place] [address] 96676 Phosphate [Mass/Vol] 1.5 mg/dL Low 2.5-4.9 [facility] Comment on above: Result Comment: The performance characteristics of phosphorus testing in heparinized plasma have been validated by the individual laboratory site where testing is performed. Testing on heparinized plasma is not approved by the FDA; however, such approval is not necessary. Performed By: #### 2 341-6 #### LINDA Beckett ([id number]) [facility] ([facility]) [address] [place] [address] 98834 Potassium [Moles/Vol] 3.3 mmol/L Low 3.5-5.3 [facility] Comment on above: Performed By: #### 2 341-6 #### LINDA Beckett ([id number]) [facility] ([facility]) [address] [place] [address] 69238 Sodium [Moles/Vol] 143 mmol/L Normal 136-[address] [facility] Comment on above: Performed By: #### 2 341-6 #### LINDA Beckett ([id number]) [facility] ([facility]) [address] [place] [address] 03835 Urea nitrogen [Mass/Vol] 6 mg/dL Normal 6-23 [facility] Comment on above: Performed By: #### 2 341-6 #### LINDA Beckett ([id number]) [facility] ([facility]) [address] [place] [address] 68171 Bacteria identifiedon 2023 Bacteria identified Cx Nom (U) Test: Urine Culture Specimen Source: Clean Catch/Voided Specimen Type: Urine Specimen Date: 10/04/2023 1502 Result Date: 10/06/2023 1135 Result Status: Final result Abnormal: No Resulting Lab: [facility] [address] [place] [address] CULTURE Normal genitourinary jamal Normal [facility] Comment on above: Performed By: #### 2 341-6 #### LINDA Beckett ([id number]) [facility] ([facility]) [address] [place] [address] Bacteria identified Cx Nom (Bld) Test: Blood Culture Specimen Source: Peripheral Venipuncture Specimen Type: Blood culture Specimen Date: 10/04/2023 1018 Result Date: 10/08/2023 1602 Result Status: Final result Abnormal: No Resulting Lab: [facility] [address] [place], [place] [id number] CULTURE No growth at 4 days - FINAL REPORT [facility] Comment on above: Performed By: #### 2 341-6 #### LINDA Beckett ([id number]) [facility] ([facility]) [address] [place] [address] C. difficile toxin A+B tcdA+ tcdB genes KARIN+probe Ql (Stl)Ordered By: Burt Maher on 10-04-2023 Interpretation and review of laboratory results [facility] This test is an FDA-cleared real-time PCR assay for detection of toxigenic C. difficile DNA from unprocessed liquid or unformed stool specimens that have not undergone nucleic acid extraction in symptomatic patients with potential C. difficile infection (CDI). A positive result may indicate colonization, and clinical assessment is required for the diagnosis of CDI. This test cannot be performed on formed stools or used as a test of cure, and should not be performed more than once per 7 days. [facility] CBC W Auto Differential pane l (Bld)on 10-04-2023 Basophils (Bld) [#/Vol] 0.09 10*3/uL [facility] Basophils/100 WBC (Bld) 0.7 % 0.0 - 2.0 % [facility] Eosinophils (Bld) [#/Vol] 0.16 10*3/uL [facility] Eosinophils/100 WBC (Bld) 1.2 % 0.0 - 6.0 % [facility] Erythrocyte distribution width (RBC) [Ratio] 13.0 % 11.5 - 14.5 % [facility] Hematocrit (Bld) [Volume fraction] 28.8 % Low 36.0 - 46.0 % [facility] Hemoglobin (Bld) [Mass/Vol] 10.1 g/dL Low 12.0 - 16.0 g/dL [facility] Immature granulocytes (Bld) [#/Vol] 0.27 10*3/uL [facility] Immature granulocytes/100 WBC (Bld) 2.0 % High 0.0 - 0.9 % [facility] Comment on above: Immature Granulocyte Count (IG) includes promyelocytes, myelocytes and metamyelocytes but does not include bands. Percent differential counts (%) should be interpreted in the context of the absolute cell counts (cells/UL). Interpretation and review of laboratory results Abnormal [facility] Lymphocytes (Bld) [#/Vol] 2.18 10*3/uL [facility] Lymphocytes/100 WBC (Bld) 16.1 % 13.0 - 44.0 % [facility] MCH (RBC) [Entitic mass] 31.6 pg 26.0 - 34.0 pg [facility] MCHC (RBC) [Mass/Vol] 35.1 g/dL 32.0 - 36.0 g/dL [facility] MCV (RBC) [Entitic vol] 90 fL 80 - 100 fL [facility] Monocytes (Bld) [#/Vol] 0.78 10*3/uL [facility] Monocytes/100 WBC (Bld) 5.8 % 2.0 - 10.0 % [facility] Neutrophils (Bld) [#/Vol] 10.08 10*3/uL High [facility] Comment on above: Percent differential counts (%) should be interpreted in the context of the absolute cell counts (cells/uL). Neutrophils/100 WBC (Bld) 74.2 % 40.0 - 80.0 % [facility] Nucleated RBC/100 WBC (Bld) [Ratio] 0.0 % [facility] Platelets (Bld) [#/Vol] 503 10*3/uL High [facility] RBC (Bld) [#/Vol] 3.20 10*6/uL [facility] (Bld[facility] [#/Vol] 13.6 10*3/uL [facility] Basophils (Bld) [#/Vol] 0.09 x10*3/uL Normal 0.00-0.10 [facility] Comment on above: Performed By: #### 5 7021-8 ####LINDA Beckett ([id number])[facility] ([facility])[address] [place] [address] Basophils/100 WBC (Bld) 0.7 % Normal 0.0-2.0 [facility] Comment on above: Performed By: #### 5 7021-8 ####LINDA Beckett ([id number])[facility] ([facility])[address] [place] [address] Eosinophils (Bld) [#/Vol] 0.16 x10*3/uL Normal 0.00-0.70 [facility] Comment on above: Performed By: #### 5 7021-8 ####LINDA Beckett ([id number])[facility] ([facility])[address] [place] [address] Eosinophils/100 WBC (Bld) 1.2 % Normal 0.0-6.0 [facility] Comment on above: Performed By: #### 5 7021-8 ####LINDA Beckett ([id number])[facility] ([facility])[address] [place] [address] Erythrocyte distribution width (RBC) [Ratio] 13.0 % Normal 11.5-14.5 [facility] Comment on above: Performed By: #### 5 7021-8 ####LINDA KUMARI L ([id number])[facility] ([facility])[address] [place] [address] Hematocrit (Bld) [Volume fraction] 28.8 % Low 36.0-46.0 [facility] Comment on above: Performed By: #### 5 7021-8 ####LINDA KUMARI L ([id number])[facility] ([facility])[address] [place] [address] Hemoglobin (Bld) [Mass/Vol] 10.1 g/dL Low 12.0-16.0 [facility] Comment on above: Performed By: #### 5 7021-8 ####LINDA Beckett ([id number])[facility] ([facility])[address] [place] [address] Immature granulocytes (Bld) [#/Vol] 0.27 x10*3/uL Normal 0.00-0.70 [facility] Comment on above: Performed By: #### 5 7021-8 ####LINDA Beckett ([id number])[facility] ([facility])[address] [place] [address] Immature granulocytes/100 WBC (Bld) 2.0 % High 0.0-0.9 [facility] Comment on above: Result Comment: Ayala ture Granulocyte Count (IG) includes promyelocytes, myelocytes and metamyelocytes but does not include bands. Percent differential counts (%) should be interpreted in the context of the absolute cell counts (cells/UL). Performed By: #### 5 7021-8 ####LINDA Beckett ([id number])[facility] ([facility])[address] [place] [address] Lymphocytes (Bld) [#/Vol] 2.18 x10*3/uL Normal 1.20-4.80 [facility] Comment on above: Performed By: #### 5 7021-8 ####LINDA Beckett ([id number])[facility] ([facility])[address] [place] [address] Lymphocytes/100 WBC (Bld) 16.1 % Normal 13.0-44.0 [facility] Comment on above: Performed By: #### 5 7021-8 ####LINDA Beckett ([id number])[facility] ([facility])[address] [place] [address] MCH (RBC) [Entitic mass] 31.6 pg Normal 26.0-34.0 [facility] Comment on above: Performed By: #### 5 7021-8 ####LINDA Beckett ([id number])[facility] ([facility])[address] [place] [address] MCHC (RBC) [Mass/Vol] 35.1 g/dL Normal 32.0-36.0 [facility] Comment on above: Performed By: #### 5 7021-8 ####LINDA Beckett ([id number])[facility] ([facility])[address] [place] [address] MCV (RBC) [Entitic vol] 90 fL Normal 80-100 [facility] Comment on above: Performed By: #### 5 7021-8 ####LINDA Beckett ([id number])[facility] ([facility])[id number] [place] [address]1225 Monocytes (Bld) [#/Vol] 0.78 x10*3/uL Normal 0.10-1.00 [facility] Comment on above: Performed By: #### 5 7021-8 ####LINDA Beckett ([id number])[facility] ([facility])[address] [place] [address] Monocytes/100 WBC (Bld) 5.8 % Normal 2.0-10.0 [facility] Comment on above: Performed By: #### 5 7021-8 ####LINDA Beckett ([id number])[facility] ([facility])[address] [place] [address] Neutrophils (Bld) [#/Vol] 10.08 x10*3/uL High 1.20-7.70 [facility] Comment on above: Result Comment: Perc ent differential counts (%) should be interpreted in the context of the absolute cell counts (cells/uL). Performed By: #### 5 7021-8 ####LINDA Beckett ([id number])[facility] ([facility])[address] [place] [address] Neutrophils/100 WBC (Bld) 74.2 % Normal 40.0-80.0 [facility] Comment on above: Performed By: #### 5 7021-8 ####LINDA Beckett ([id number])[facility] ([facility])[address] [place] [address] Nucleated RBC/100 WBC (Bld) [Ratio] 0.0 /100 WBCs Normal 0.0-0.0 [facility] Comment on above: Performed By: #### 5 7021-8 ####LINDA Beckett ([id number])[facility] ([facility])[address] [place] [address] Platelets (Bld) [#/Vol] 503 x10*3/uL High 150-450 [facility] Comment on above: Performed By: #### 5 7021-8 ####LINDA Beckett ([id number])[facility] ([facility])[address] [place] [address] RBC (Bld) [#/Vol] 3.20 x10*6/uL Low 4.00-5.20 [facility] Comment on above: Performed By: #### 5 7021-8 ####LINDA Beckett ([id number])[facility] ([facility])[address] [place] [address] WBC (Bld) [#/Vol] 13.6 x10*3/uL High 4.4-11.3 [facility] Comment on above: Performed By: #### 5 7021-8 ####LINDA Beckett ([id number])[facility] ([facility])[address] [place] [address] Clostridioides difficile tox in A+B tcdA+tcdB geneson 10-04-2023 C. difficile toxin A+B tcdA+tcdB genes KARIN+probe Ql (Stl) Clostridioides difficile toxin A+B tcdA+tcdB genes Not Detected Normal Not Detected [facility] Comment on above: Order Comment: This test is an FDA-cleared real-time PCR assay for detection of toxigenic C. difficile DNA from unprocessed liquid or unformed stool specimens that have not undergone nucleic acid extraction in symptomatic patients with potential C. difficile infection (CDI). A positive result may indicate colonization, and clinical assessment is required for the diagnosis of CDI. This test cannot be performed on formed stools or used as a test of cure, and should not be performed more than once per 7 days. Performed By: #### 2 341-6 #### LINDA Beckett ([id number]) [facility] ([facility]) [address] [place] [address] Comprehensive metabolic 2000 panelon 10-04-2023 Albumin BCP dye [Mass/Vol] 3.1 g/dL Low 3.4 - 5.0 g/dL [facility] ALP [Catalytic activity/Vol] 81 U/L 33 - 136 U/L [facility] ALT With P-5'-P [Catalytic activity/Vol] 10 U/L 7 - 45 U/L [facility] Comment on above: Patients treated wit h Sulfasalazine may generate falsely decreased results for ALT. Anion gap [Moles/Vol] 14 mmol/L 10 - 2 0 mmol/L [facility] AST With P-5'-P [Catalytic activity/Vol] 16 U/L 9 - 39 U/L [facility] Comment on above: MILD HEMOLYSIS DETEC ZELALEM. The result may be falsely elevated due to hemolysis or other interferents. Clinical correlation is recommended. Repeat testing may be considered. Bilirubin [Mass/Vol] 0.3 mg/dL 0.0 - 1 .2 mg/dL [facility] Calcium [Mass/Vol] 8.4 mg/dL Low 8.6 - 10. 6 mg/dL [facility] Chloride [Moles/Vol] 119 mmol/L High 98 - 10 7 mmol/L [facility] CO2 [Moles/Vol] 10 mmol/L Critically low 21 - 32 mmol/L [facility] Creatinine [Mass/Vol] 0.93 mg/dL 0.50 - 1.05 mg/dL [facility] GFR/1.73 sq M.predicted among non-blacks MDRD (S/P/Bld) [Vol rate/Area] 67 mL/min/{1.73_m2} - PINF [facility] Comment on above: Calculations of manjula mated GFR are performed using the 2020 CKD-EPI Study Refit equation without the race variable for the IDMS-Traceable creatinine methods. https://jasn.asnjournals.org/content/ASN.2020 885890 Glucose [Mass/Vol] 103 mg/dL High 74 - 99 mg/dL [facility] Interpretation and review of laboratory results Abnormal [facility] Potassium [Moles/Vol] 3.5 mmol/L 3.5 - 5.3 mmol/L [facility] Comment on above: MILD HEMOLYSIS DETEC ZELALEM. The result may be falsely elevated due to hemolysis or other interferents. Clinical correlation is recommended. Repeat testing may be considered. Protein [Mass/Vol] 6.0 g/dL Low 6.4 - 8.2 g/dL [facility] Sodium [Moles/Vol] 139 mmol/L 136 - 145 mmol/L [facility] Urea nitrogen [Mass/Vol] 23 mg/dL 6 - 23 mg/dL [facility] Albumin BCP dye [Mass/Vol] 3.1 g/dL Low 3.4-5.0 [facility] Comment on above: Performed By: #### 2 341-6 #### LINDA Beckett ([id number]) [facility] ([facility]) [id number] [place] [address] ALP [Catalytic activity/Vol] 81 U/L Normal 33-136 [facility] Comment on above: Performed By: #### 2 341-6 #### LINDA Beckett ([id number]) [facility] ([facility]) [id number] [place] [address] 35017 ALT With P-5'-P [Catalytic activity/Vol] 10 U/L Normal 7-45 [facility] Comment on above: Result Comment: Kathy ents treated with Sulfasalazine may generate falsely decreased results for ALT. Performed By: #### 2 341-6 #### LINDA Beckett ([id number]) [facility] ([facility]) [address] [place] [address] Anion gap [Moles/Vol] 14 mmol/L Normal 10-20 [facility] Comment on above: Performed By: #### 2 341-6 #### LINDA Beckett ([id number]) [facility] ([facility]) [address] [place] [address] AST With P-5'-P [Catalytic activity/Vol] 16 U/L Normal 9-39 [facility] Comment on above: Result Comment: MILD HEMOLYSIS DETECTED. The result may be falsely elevated due to hemolysis or other interferents. Clinical correlation is recommended. Repeat testing may be considered. Performed By: #### 2 341-6 #### LINDA Beckett ([id number]) [facility] ([facility]) [address] [place] [address] Bilirubin [Mass/Vol] 0.3 mg/dL Normal 0.0-1.2 [facility] Comment on above: Performed By: #### 2 341-6 #### LINDA Beckett ([id number]) [facility] ([facility]) [address] [place] [address] Calcium [Mass/Vol] 8.4 mg/dL Low 8.6-10.[address] [facility] Comment on above: Performed By: #### 2 341-6 #### LINDA Beckett ([id number]) [facility] ([facility]) [address] [place] [address] Chloride [Moles/Vol] 119 mmol/L High 98-107 [facility] Comment on above: Performed By: #### 2 341-6 #### LIDNA Beckett ([id number]) [facility] ([facility]) [address] [place] [address] CO2 [Moles/Vol] 10 mmol/L Critically low 21-32 [facility] Comment on above: Performed By: #### 2 341-6 #### LINDA Beckett ([id number]) [facility] ([facility]) [address] [place] [address] Creatinine [Mass/Vol] 0.93 mg/dL Normal 0.50-1.05 [facility] Comment on above: Performed By: #### 2 341-6 #### LINDA Beckett ([id number]) [facility] ([facility]) [address] [place] [address] Glomerular filtration rate/1.73 sq M.predicted 67 mL/min/1.73m*2 Normal >60 [facility] Comment on above: Result Comment: Calc ulations of estimated GFR are performed using the 2020 CKD-EPI Study Refit equation without the race variable for the IDMS-Traceable creatinine methods. https://jasn.asnjournals.org/content/early//ASN.2020 506447 Performed By: #### 2 341-6 #### LINDA Beckett ([id number]) [facility] ([facility]) [address] [place] [address] Glucose [Mass/Vol] 103 mg/dL High 74-[address] [facility] Comment on above: Performed By: #### 2 341-6 #### LINDA Beckett ([id number]) [facility] ([facility]) [address] [place] [address]83 Potassium [Moles/Vol] 3.5 mmol/L Normal 3.5-5.3 [facility] Comment on above: Result Comment: MILD HEMOLYSIS DETECTED. The result may be falsely elevated due to hemolysis or other interferents. Clinical correlation is recommended. Repeat testing may be considered. Performed By: #### 2 341-6 #### LINDA Beckett ([id number]) [facility] ([facility]) [address] [place] [address] Protein [Mass/Vol] 6.0 g/dL Low 6.4-8.[address] [facility] Comment on above: Performed By: #### 2 341-6 #### LINDA Beckett ([id number]) [facility] ([facility]) [address] [place] [address]872 Sodium [Moles/Vol] 139 mmol/L Normal 136-[address] [facility] Comment on above: Performed By: #### 2 341-6 #### LINDA Beckett ([id number]) [facility] ([facility]) [address] [place] [address] Urea nitrogen [Mass/Vol] 23 mg/dL Normal 6-23 [facility] Comment on above: Performed By: #### 2 341-6 #### LINDA Beckett ([id number]) [facility] ([facility]) [id number] [place] [address] Gas panel (BldV)Ordered By: Adia Tavarez on 10-04-2023 Base excess Calc (BldV) [Moles/Vol] -12.85834 mmol/L Low -2.0 - 3.0 mmol/L [facility] CO2 (BldV) [Partial pressure] 31 mm[Hg] Low [facility] HCO3 (Bld) [Moles/Vol] 13.9 mmol/L Low 22.0 - 26.0 mmol/L [facility] Inhaled oxygen concentration 21 % [facility] Interpretation and review of laboratory results Abnormal [facility] Oxygen (BldV) [Partial pressure] 21 mm[Hg] Low [facility] Oxygen saturation in Venous blood 24 % Low 45 - 75 % [facility] Oxyhemoglobin (BldV) [Mass fraction] 23.6 % Low 45.0 - 75.0 % [facility] pH (BldV) 7.26 [pH] Low 7.33 - 7.43 pH [facility] Gas panel (BldV)on Base excess Calc (BldV) [Moles/Vol] -12.23933 mmol/L Low -2.0-3.0 [facility] Comment on above: Performed By: #### 2 341-6 #### LINDA Beckett ([id number]) [facility] ([facility]) [id number] [place] [address] CO2 (BldV) [Partial pressure] 31 mm Hg Low 41-51 [facility] Comment on above: Performed By: #### 2 341-6 #### LINDA Beckett ([id number]) [facility] ([facility]) [address] [place] [address] 35698 HCO3 (Bld) [Moles/Vol] 13.9 mmol/L Low 22.0-26.0 [facility] Comment on above: Performed By: #### 2 341-6 #### LINDA Beckett ([id number]) [facility] ([facility]) [address] [place] [address]107 Inhaled oxygen concentration 21 % Normal [facility] Comment on above: Performed By: #### 2 341-6 #### LINDA Beckett ([id number]) [facility] ([facility]) [address] [place] [address] Oxygen (BldV) [Partial pressure] 21 mm Hg Low 35-45 [facility] Comment on above: Performed By: #### 2 341-6 #### LINDA Beckett ([id number]) [facility] ([facility]) [address] [place] [address] 64972 Oxygen saturation in Venous blood 24 % Low 45-75 [facility] Comment on above: Performed By: #### 2 341-6 #### LINDA Beckett ([id number]) [facility] ([facility]) [address] [place] [address] 45368 Oxyhemoglobin (BldV) [Mass fraction] 23.6 % Low 45.0-75.0 [facility] Comment on above: Performed By: #### 2 341-6 #### LINDA Beckett ([id number]) [facility] ([facility]) [address] [place] [address]75 pH (BldV) 7.26 [pH] Low 7.33-7.43 [facility] Comment on above: Performed By: #### 2 341-6 #### LINDA Beckett ([id number]) [facility] ([facility]) [address] [place] [address] 67974 Anion gap 4 (BldV) [Moles/Vol] 13.0 mmol/L 10.0 - 25.0 mmol/L [facility] Base excess Calc (BldV) [Moles/Vol] -17.53828 mmol/L Low -2.0 - 3.0 mmol/L [facility] Calcium.ionized (BldV) [Moles/Vol] 0.91 mmol/L Low 1.10 - 1.33 mmol/L [facility] Chloride (BldV) [Moles/Vol] 124 mmol/L High 98 - 107 mmol/L [facility] CO2 (BldV) [Partial pressure] 19 mm[Hg] Low [facility] Glucose [Mass/Vol] 52 mg/dL Critically low 74 - 99 mg/dL [facility] HCO3 (Bld) [Moles/Vol] 8.0 mmol/L Low 22.0 - 26.0 mmol/L [facility] Hematocrit Est (Bld) [Volume fraction] 19.0 % Low 36.0 - 46.0 % [facility] Hemoglobin (Bld) [Mass/Vol] 6.2 g/dL Critically low 12.0 - 16.0 g/dL [facility] Interpretation and review of laboratory results Abnormal [facility] Lactate (BldV) [Moles/Vol] 0.5 mmol/L 0.4 - 2.0 mmol/L [facility] Oxygen (BldV) [Partial pressure] 34 mm[Hg] Low [facility] Oxygen saturation in Venous blood 47 % 45 - 75 % [facility] Oxyhemoglobin (BldV) [Mass fraction] 46.7 % 45.0 - 75.0 % [facility] pH (BldV) 7.23 [pH] Critically low 7.33 - 7.43 pH [facility] Potassium (BldV) [Moles/Vol] 1.8 mmol/L Critically low 3.5 - 5.3 mmol/L [facility] Sodium (BldV) [Moles/Vol] 143 mmol/L 136 - 145 mmol/L [facility] Anion gap 4 (BldV) [Moles/Vol] 13.0 mmol/L Normal 10.0-25.0 [facility] Comment on above: Performed By: #### 2 341-6 #### LINDA Beckett ([id number]) [facility] ([facility]) [address] [place] [address] Base excess Calc (BldV) [Moles/Vol] -17.27910 mmol/L Low -2.0-3.0 [facility] Comment on above: Performed By: #### 2 341-6 #### LINDA Beckett ([id number]) [facility] ([facility]) [id number] [place] [address] 12920 Calcium.ionized (BldV) [Moles/Vol] 0.91 mmol/L Low 1.10-1.33 [facility] Comment on above: Performed By: #### 2 341-6 #### LINDA Beckett ([id number]) [facility] ([facility]) [address] [place] [address] 72599 Chloride (BldV) [Moles/Vol] 124 mmol/L High 98-107 [facility] Comment on above: Performed By: #### 2 341-6 #### LINDA Beckett ([id number]) [facility] ([facility]) [address] [place] [address]4065 CO2 (BldV) [Partial pressure] 19 mm Hg Low 41-51 [facility] Comment on above: Performed By: #### 2 341-6 #### LINDA Beckett ([id number]) [facility] ([facility]) [address] [place] [address] 26001 Glucose [Mass/Vol] 52 mg/dL Critically low 74-99 [facility] Comment on above: Performed By: #### 2 341-6 #### LINDA Beckett ([id number]) [facility] ([facility]) [address] [place] [address] 27885 HCO3 (Bld) [Moles/Vol] 8.0 mmol/L Low 22.0-26.0 [facility] Comment on above: Performed By: #### 2 341-6 #### LINDA Beckett ([id number]) [facility] ([facility]) [address] [place] [address] 89640 Hematocrit Est (Bld) [Volume fraction] 19.0 % Low 36.0-46.0 [facility] Comment on above: Performed By: #### 2 341-6 #### LINDA Beckett ([id number]) [facility] ([facility]) [address] [place] [address] 28708 Hemoglobin (Bld) [Mass/Vol] 6.2 g/dL Critically low 12.0-16.0 [facility] Comment on above: Performed By: #### 2 341-6 #### LINDA Beckett ([id number]) [facility] ([facility]) [address] [place] [address] 90530 Lactate (BldV) [Moles/Vol] 0.5 mmol/L Normal 0.4-2.0 [facility] Comment on above: Performed By: #### 2 341-6 #### LINDA Beckett ([id number]) [facility] ([facility]) [address] [place] [address]159 Oxygen (BldV) [Partial pressure] 34 mm Hg Low 35-45 [facility] Comment on above: Performed By: #### 2 341-6 #### LINDA Beckett ([id number]) [facility] ([facility]) [address] [place] [address] 05447 Oxygen saturation in Venous blood 47 % Normal 45-75 [facility] Comment on above: Performed By: #### 2 341-6 #### LINDA Beckett ([id number]) [facility] ([facility]) [address] [place] [address] 97966 Oxyhemoglobin (BldV) [Mass fraction] 46.7 % Normal 45.0-75.0 [facility] Comment on above: Performed By: #### 2 341-6 #### LINDA Beckett ([id number]) [facility] ([facility]) [address] [place] [address] 81887 pH (BldV) 7.23 [pH] Critically low 7.33-7.43 [facility] Comment on above: Performed By: #### 2 341-6 #### LINDA Beckett ([id number]) [facility] ([facility]) [address] [place] [address] 10723 Potassium (BldV) [Moles/Vol] 1.8 mmol/L Critically low 3.5-5.3 [facility] Comment on above: Performed By: #### 2 341-6 #### LINDA Beckett ([id number]) [facility] ([facility]) [address] [place] [address] Sodium (BldV) [Moles/Vol] 143 mmol/L Normal 136-145 [facility] Comment on above: Performed By: #### 2 341-6 #### LINDA Beckett ([id number]) [facility] ([facility]) [address] [place] [address] Lactateon 10-04-2023 Lactate [Moles/Vol] 1.1 mmol/L 0.4 - 2. 0 mmol/L [facility] Lactate [Moles/Vol] 1.1 mmol/L Normal 0.4-2.0 [facility] Comment on above: Order Comment: Venip uncture immediately after or during the administration of Metamizole may lead to falsely low results. Testing should be performed immediately prior to Metamizole dosing. Performed By: #### 2 524-7 #### ANANYA CLEMENTS ([id number]) [facility] ([facility]) [address] [place] [address] Lactate [Moles/Vol]on 2023 Interpretation and review of laboratory results Normal [facility] Venipuncture immediately after or during the administration of Metamizole may lead to falsely low results. Testing should be performed immediately prior to Metamizole dosing. [facility] Magnesiumon 10-04-2023 Magnesium [Mass/Vol] 2.19 mg/dL 1.60 - 2.40 mg/dL [facility] Magnesium [Mass/Vol] 2.19 mg/dL Normal 1.60-2.40 [facility] Comment on above: Performed By: #### 1 9123-9 ####LINDA Beckett ([id number])[facility] ([facility])[address] [place] [address] Magnesium [Mass/Vol]on 10-03 Interpretation and review of laboratory results Normal [facility] No Panel Informationon 10-03 [facility] Urinalysis complete W Reflex Culture panel (U)on 10-04-2023 Appearance (U) Clear Clear [facility] Bilirubin (U) [Mass/Vol] Negative NEGATIVE [facility] Color (U) Light-Yellow Light-Yellow , Yellow, Dark-Yellow [facility] Glucose Auto test strip (U) [Mass/Vol] Normal Normal mg/dL [facility] Interpretation and review of laboratory results Abnormal [facility] Ketones (U) [Mass/Vol] Negative NEGAT SHEKHAR mg/dL [facility] Leukocyte esterase Auto test strip Ql (U) Negative NEGATIVE [facility] Mucus Auto (Urine sed) [#/Area] FEW Reference range not established. /LPF [facility] Nitrite Auto test strip Ql (U) Negative NEGATIVE [facility] pH (U) 6.0 [pH] 5.0, 5.5, 6.0, 6.5, 7.0, 7.5, 8.0 [facility] Protein (U) [Mass/Vol] 30 (1+) Abnormal NEGAT SHEKHAR, 10 (TRACE), 20 (TRACE) mg/dL [facility] RBC (U) [#/Vol] Negative NEGATIVE [facility] RBC Auto (Urine sed) [#/Area] 1-2 NONE, 1-2, 3-5 /HPF [facility] Specific gravity (U) [Rel density] 1.020 1.005 - 1.035 [facility] Urobilinogen (U) [Mass/Vol] Normal Normal mg/dL [facility] WBC Auto (Urine sed) [#/Area] 6-10 Abnormal 1-5, NONE /HPF [facility] Appearance (U) Clear Normal Clear [facility] Comment on above: Performed By: #### 2 341-6 #### LINDA Beckett ([id number]) [facility] ([facility]) [address] [place] [address] Bilirubin (U) [Mass/Vol] Negative Normal NEGATIVE [facility] Comment on above: Performed By: #### 2 341-6 #### LINDA Beckett ([id number]) [facility] ([facility]) [address] [place] [address] 85155 Color (U) Light-Yellow Normal Light-Yellow , Yellow, Dark-Yellow [facility] Comment on above: Performed By: #### 2 341-6 #### LINDA Beckett ([id number]) [facility] ([facility]) [address] [place] [address] 99429 Glucose Auto test strip (U) [Mass/Vol] Normal Normal Normal [facility] Comment on above: Performed By: #### 2 341-6 #### LINDA Beckett ([id number]) [facility] ([facility]) [address] [place] [address] 23887 Ketones (U) [Mass/Vol] Negative Normal NEGATIVE [facility] Comment on above: Performed By: #### 2 341-6 #### LINDA Beckett ([id number]) [facility] ([facility]) [address] [place] [address] 81516 Leukocyte esterase Auto test strip Ql (U) Negative Normal NEGATIVE [facility] Comment on above: Performed By: #### 2 341-6 #### LINDA Beckett ([id number]) [facility] ([facility]) [address] [place] [address] 37382 Mucus Auto (Urine sed) [#/Area] FEW Normal Reference range not established. [facility] Comment on above: Performed By: #### 2 341-6 #### LINDA KUMARI L ([id number]) [facility] ([facility]) [address] [place] [address] 05286 Nitrite Auto test strip Ql (U) Negative Normal NEGATIVE [facility] Comment on above: Performed By: #### 2 341-6 #### LINDA KUMARI L ([id number]) [facility] ([facility]) [address] [place] [address] 52307 pH (U) 6.0 [pH] Normal 5.0, 5.5, 6.0, 6.5, 7.0, 7.5, 8.0 [facility] Comment on above: Performed By: #### 2 341-6 #### LINDA Beckett ([id number]) [facility] ([facility]) [address] [place] [address] 10874 Protein (U) [Mass/Vol] 30 (1+) Abnormal NEGAT SHEKHAR, 10 (TRACE), 20 (TRACE) [facility] Comment on above: Performed By: #### 2 341-6 #### LINDA Beckett ([id number]) [facility] ([facility]) [address] [place] [address] 66102 RBC (U) [#/Vol] Negative Normal NEGATIVE [facility] Comment on above: Performed By: #### 2 341-6 #### LINDA Beckett ([id number]) [facility] ([facility]) [address] [place] [address] 39768 RBC Auto (Urine sed) [#/Area] 1-2 Normal NONE, 1-2, 3-5 [facility] Comment on above: Performed By: #### 2 341-6 #### LINDA Beckett ([id number]) [facility] ([facility]) [address] [place] [address] 43068 Specific gravity (U) [Rel density] 1.020 Normal 1.005-1.035 [facility] Comment on above: Performed By: #### 2 341-6 #### LINDA Beckett ([id number]) [facility] ([facility]) [address] [place] [address] 47484 Urobilinogen (U) [Mass/Vol] Normal Normal Normal [facility] Comment on above: Performed By: #### 2 341-6 #### LINDA Beckett ([id number]) [facility] ([facility]) [address] [place] [address] 31538 WBC Auto (Urine sed) [#/Area] 6-10 Abnormal 1-5, NONE [facility] Comment on above: Performed By: #### 2 341-6 #### LINDA Beckett ([id number]) [facility] ([facility]) [address] [place] [address] CBC W Auto Differential pane l (Bld)on 10-03-2023 Erythrocyte distribution width (RBC) [Ratio] 13.1 % 11.5 - 14.5 % [facility] Hematocrit (Bld) [Volume fraction] 35.2 % Low 36.0 - 46.0 % [facility] Hemoglobin (Bld) [Mass/Vol] 11.8 g/dL Low 12.0 - 16.0 g/dL [facility] Immature granulocytes (Bld) [#/Vol] 0.77 10*3/uL High [facility] Immature granulocytes/100 WBC (Bld) 3.6 % High 0.0 - 0.9 % [facility] Comment on above: Immature Granulocyte Count (IG) includes promyelocytes, myelocytes and metamyelocytes but does not include bands. Percent differential counts (%) should be interpreted in the context of the absolute cell counts (cells/UL). Interpretation and review of laboratory results Abnormal [facility] MCH (RBC) [Entitic mass] 31.1 pg 26.0 - 34.0 pg [facility] MCHC (RBC) [Mass/Vol] 33.5 g/dL 32.0 - 36.0 g/dL [facility] MCV (RBC) [Entitic vol] 93 fL 80 - 100 fL [facility] Nucleated RBC/100 WBC (Bld) [Ratio] 0.0 % [facility] Platelets (Bld) [#/Vol] 702 10*3/uL High [facility] RBC (Bld) [#/Vol] 3.79 10*6/uL Low [facility] WBC (Bld) [#/Vol] 21.2 10*3/uL High [facility] Erythrocyte distribution width (RBC) [Ratio] 13.1 % Normal 11.5-14.5 [facility] Comment on above: Performed By: #### 2 524-7 #### HARE STARR ([id number]) [facility] ([facility]) [address] [place] [address] Hematocrit (Bld) [Volume fraction] 35.2 % Low 36.0-46.0 [facility] Comment on above: Performed By: #### 2 524-7 #### ANANYA CLEMENTS ([id number]) [facility] ([facility]) [address] [place] [address] 11745 Hemoglobin (Bld) [Mass/Vol] 11.8 g/dL Low 12.0-16.0 [facility] Comment on above: Performed By: #### 2 524-7 #### ANANYA CLEMENTS ([id number]) [facility] ([facility]) [address] [place] [address] 55815 Immature granulocytes (Bld) [#/Vol] 0.77 x10*3/uL High 0.00-0.70 [facility] Comment on above: Performed By: #### 2 524-7 #### ANANYA CLEMENTS ([id number]) [facility] ([facility]) [address] [place] [address] 78353 Immature granulocytes/100 WBC (Bld) 3.6 % High 0.0-0.9 [facility] Comment on above: Result Comment: Ayala ture Granulocyte Count (IG) includes promyelocytes, myelocytes and metamyelocytes but does not include bands. Percent differential counts (%) should be interpreted in the context of the absolute cell counts (cells/UL). Performed By: #### 2 524-7 #### ANANYA CELMENTS ([id number]) [facility] ([facility]) [address] [place] [address] 50575 MCH (RBC) [Entitic mass] 31.1 pg Normal 26.0-34.0 [facility] Comment on above: Performed By: #### 2 524-7 #### ANANYA CLEMENTS ([id number]) [facility] ([facility]) [address] [place] [address] 31648 MCHC (RBC) [Mass/Vol] 33.5 g/dL Normal 32.0-36.0 [facility] Comment on above: Performed By: #### 2 524-7 #### ANANYA CLEMENTS ([id number]) [facility] ([facility]) [address] [place] [address] 36137 MCV (RBC) [Entitic vol] 93 fL Normal 80-100 U [facility] Comment on above: Performed By: #### 2 524-7 #### ANANYA CLEMENTS ([id number]) [facility] ([facility]) [address] [place] [address] 37510 Nucleated RBC/100 WBC (Bld) [Ratio] 0.0 /100 WBCs Normal 0.0-0.0 [facility] Comment on above: Performed By: #### 2 524-7 #### ANANYA CLEMENTS ([id number]) [facility] ([facility]) [address] [place] [address] 25186 Platelets (Bld) [#/Vol] 702 x10*3/uL High 150-450 [facility] Comment on above: Performed By: #### 2 524-7 #### ANANYA CLEMENTS ([id number]) [facility] ([facility]) [address] [place] [address] RBC (Bld) [#/Vol] 3.79 x10*6/uL Low 4.00-5.20 [facility] Comment on above: Performed By: #### 2 524-7 #### ANANYA CLEMENTS ([id number]) [facility] ([facility]) [address] [place], [place] [address] WBC (Bld) [#/Vol] 21.2 x10*3/uL High 4.4-11.3 [facility] Comment on above: Performed By: #### 2 524-7 #### ANANYA CLEMENTS ([id number]) [facility] ([facility]) [address] [place], [place] [id number] CT ABDOMEN PELVIS WO IV CONT Clint 10-03-2023 CT ABDOMEN PELVIS WO IV CONTRAST Interpreted By: Abhi Roberto, STUDY: CT ABDOMEN PELVIS WO IV CONTRAST; 10/03/2023 9:11 pm INDICATION: Signs/Symptoms:pain. Recent hospitalization and surgery for bowel necrosis. COMPARISON: 09/17/2023 ACCESSION NUMBER(S): [id number] ORDERING CLINICIAN: DIANDRA NIELSON TECHNIQUE: CT of the abdomen and pelvis was performed without IV contrast. Sagittal and coronal reconstructions. FINDINGS: Limited evaluation for solid organs and vasculature without intravenous contrast. Lower Chest: Clear. Liver: The liver is unremarkable without focal lesion. Gallbladder and Biliary: Unremarkable. Pancreas: Borderline dilated main pancreatic duct measuring up to 4 mm in the head. Spleen: No abnormality identified in the spleen. Adrenals: Mildly thickened left adrenal gland. Note adrenal gland is unremarkable. Urinary: No parenchymal abnormality identified in either kidney. No hydronephrosis. Gastrointestinal/Perito neum: Small foci of free air likely postoperative in nature. Suture line is seen in the right lower quadrant suggesting anastomosis of small bowel to the ascending colon. Mild bowel wall thickening involving the sigmoid colon may be due to lack of distention or colitis depending on the clinical setting. Fluid throughout the colon. Dilation of the distal small bowel loops proximal to the anastomosis with the colon, measuring up to 3.8 cm in diameter. No obvious high-grade stricture is seen in this region, although assessment is limited due to lack of intravenous and oral contrast. Vascular: Abdominal aorta is normal in caliber. Atherosclerosis. Retroperitoneum: Surgical clips. Lymphatics: No enlarged lymph nodes by size criteria. MSK/Body Wall: No aggressive bony lesion identified. Multilevel degenerative change in the spine. Grade 1 anterolisthesis L5-S1. Anterior abdominal midline incision with associated stranding, as well as a small incisional fluid collection measuring 1.9 x 1.6 cm. IMPRESSION: Postoperative changes of interval laparotomy and partial bowel resection with anastomosis of small bowel to ascending colon. Dilated distal small bowel loops which remain dilated to the region of the anastomosis. Limited assessment for stenosis due to lack of intravenous and oral contrast, but no obvious high-grade stricture identified. Sigmoid colon bowel wall thickening may be due to colitis or lack of distention depending on the clinical setting. Small incisional fluid collection in the anterior abdominal wall subcutaneous fat. Signed by: Abhi Roberto 10/03/2023 10:04 PM Dictation workstation: [id number] [facility] CT Abdomen WO contraston Postoperative change s of interval laparotomy and partial bowel resection with anastomosis of small bowel to ascending colon. Dilated distal small bowel loops which remain dilated to the region of the anastomosis. Limited assessment for stenosis due to lack of intravenous and oral contrast, but no obvious high-grade stricture identified. Sigmoid colon bowel wall thickening may be due to colitis or lack of distention depending on the clinical setting. Small incisional fluid collection in the anterior abdominal wall subcutaneous fat. Signed by: Abhi Roberto 10/03/2023 10:04 PM Dictation workstation: [id number] Interpreted By: Abhi Roberto, STUDY: CT ABDOMEN PELVIS WO IV CONTRAST; 10/03/2023 9:11 pm INDICATION: Signs/Symptoms:pain. Recent hospitalization and surgery for bowel necrosis. COMPARISON: 09/17/2023 ACCESSION NUMBER(S): [id number] ORDERING CLINICIAN: DIANDRA NIELSON TECHNIQUE: CT of the abdomen and pelvis was performed without IV contrast. Sagittal and coronal reconstructions. FINDINGS: Limited evaluation for solid organs and vasculature without intravenous contrast. Lower Chest: Clear. Liver: The liver is unremarkable without focal lesion. Gallbladder and Biliary: Unremarkable. Pancreas: Borderline dilated main pancreatic duct measuring up to 4 mm in the head. Spleen: No abnormality identified in the spleen. Adrenals: Mildly thickened left adrenal gland. Note adrenal gland is unremarkable. Urinary: No parenchymal abnormality identified in either kidney. No hydronephrosis. Gastrointestinal/Perito neum: Small foci of free air likely postoperative in nature. Suture line is seen in the right lower quadrant suggesting anastomosis of small bowel to the ascending colon. Mild bowel wall thickening involving the sigmoid colon may be due to lack of distention or colitis depending on the clinical setting. Fluid throughout the colon. Dilation of the distal small bowel loops proximal to the anastomosis with the colon, measuring up to 3.8 cm in diameter. No obvious high-grade stricture is seen in this region, although assessment is limited due to lack of intravenous and oral contrast. Vascular: Abdominal aorta is normal in caliber. Atherosclerosis. Retroperitoneum: Surgical clips. Lymphatics: No enlarged lymph nodes by size criteria. MSK/Body Wall: No aggressive bony lesion identified. Multilevel degenerative change in the spine. Grade 1 anterolisthesis L5-S1. Anterior abdominal midline incision with associated stranding, as well as a small incisional fluid collection measuring 1.9 x 1.6 cm. [facility] Abhi Roberto MD - 10/03/2023 Interpreted By: Golshani, Ashkahn, STUDY: CT ABDOMEN PELVIS WO IV CONTRAST; 10/03/2023 9:11 pm INDICATION: Signs/Symptoms:pain. Recent hospitalization and surgery for bowel necrosis. COMPARISON: 09/17/2023 ACCESSION NUMBER(S): [id number] ORDERING CLINICIAN: DIANDRA NIELSON TECHNIQUE: CT of the abdomen and pelvis was performed without IV contrast. Sagittal and coronal reconstructions. FINDINGS: Limited evaluation for solid organs and vasculature without intravenous contrast. Lower Chest: Clear. Liver: The liver is unremarkable without focal lesion. Gallbladder and Biliary: Unremarkable. Pancreas: Borderline dilated main pancreatic duct measuring up to 4 mm in the head. Spleen: No abnormality identified in the spleen. Adrenals: Mildly thickened left adrenal gland. Note adrenal gland is unremarkable. Urinary: No parenchymal abnormality identified in either kidney. No hydronephrosis. Gastrointestinal/Perito neum: Small foci of free air likely postoperative in nature. Suture line is seen in the right lower quadrant suggesting anastomosis of small bowel to the ascending colon. Mild bowel wall thickening involving the sigmoid colon may be due to lack of distention or colitis depending on the clinical setting. Fluid throughout the colon. Dilation of the distal small bowel loops proximal to the anastomosis with the colon, measuring up to 3.8 cm in diameter. No obvious high-grade stricture is seen in this region, although assessment is limited due to lack of intravenous and oral contrast. Vascular: Abdominal aorta is normal in caliber. Atherosclerosis. Retroperitoneum: Surgical clips. Lymphatics: No enlarged lymph nodes by size criteria. MSK/Body Wall: No aggressive bony lesion identified. Multilevel degenerative change in the spine. Grade 1 anterolisthesis L5-S1. Anterior abdominal midline incision with associated stranding, as well as a small incisional fluid collection measuring 1.9 x 1.6 cm. IMPRESSION: Postoperative changes of interval laparotomy and partial bowel resection with anastomosis of small bowel to ascending colon. Dilated distal small bowel loops which remain dilated to the region of the anastomosis. Limited assessment for stenosis due to lack of intravenous and oral contrast, but no obvious high-grade stricture identified. Sigmoid colon bowel wall thickening may be due to colitis or lack of distention depending on the clinical setting. Small incisional fluid collection in the anterior abdominal wall subcutaneous fat. Signed by: Abhi Roberto 10/03/2023 10:04 PM Dictation workstation: [id number] [facility] Work Phone: Radiology Study observation (narrative) [facility] Work Phone: CT Abdomen WO Yousuf narayan By: Abhi Roberto on 10-03-2023 [facility] Work Phone: Comprehensive metabolic 2000 panelon 10-03-2023 Albumin BCP dye [Mass/Vol] 3.6 g/dL 3.4 - 5.0 g/dL [facility] ALP [Catalytic activity/Vol] 109 U/L 33 - 136 U/L [facility] ALT With P-5'-P [Catalytic activity/Vol] 17 U/L 7 - 45 U/L [facility] Comment on above: Patients treated wit h Sulfasalazine may generate falsely decreased results for ALT. Anion gap [Moles/Vol] 18 mmol/L 10 - 2 0 mmol/L [facility] AST With P-5'-P [Catalytic activity/Vol] 12 U/L 9 - 39 U/L [facility] Bilirubin [Mass/Vol] 0.2 mg/dL 0.0 - 1 .2 mg/dL [facility] Calcium [Mass/Vol] 9.8 mg/dL 8.6 - 10. 3 mg/dL [facility] Chloride [Moles/Vol] 107 mmol/L 98 - 10 7 mmol/L [facility] CO2 [Moles/Vol] 13 mmol/L Low 21 - 32 mmol/L [facility] Creatinine [Mass/Vol] 2.00 mg/dL High 0.50 - 1.05 mg/dL [facility] GFR/1.73 sq M.predicted among non-blacks MDRD (S/P/Bld) [Vol rate/Area] 27 mL/min/{1.73_m2} Low - PINF [facility] Comment on above: Calculations of manjula mated GFR are performed using the 2020 CKD-EPI Study Refit equation without the race variable for the IDMS-Traceable creatinine methods. https://jasn.asnjournals.org/content//ASN.2020 033642 Glucose [Mass/Vol] 207 mg/dL High 74 - 99 mg/dL [facility] Potassium [Moles/Vol] 2.8 mmol/L Critically low 3.5 - 5.3 mmol/L [facility] Comment on above: Confirmed by repeat analysis Protein [Mass/Vol] 6.9 g/dL 6.4 - 8.2 g/dL [facility] Sodium [Moles/Vol] 135 mmol/L Low 136 - 145 mmol/L [facility] Urea nitrogen [Mass/Vol] 24 mg/dL High 6 - 23 mg/dL [facility] Albumin BCP dye [Mass/Vol] 3.6 g/dL Normal 3.4-5.0 [facility] Comment on above: Performed By: #### 2 524-7 #### ANANYA CLEMENTS ([id number]) [facility] ([facility]) [address] [place] [address] ALP [Catalytic activity/Vol] 109 U/L Normal 33-136 [facility] Comment on above: Performed By: #### 2 524-7 #### ANANYA CLEMENTS ([id number]) [facility] ([facility]) [address] [place] [address] 98714 ALT With P-5'-P [Catalytic activity/Vol] 17 U/L Normal 7-45 [facility] Comment on above: Result Comment: Kathy ents treated with Sulfasalazine may generate falsely decreased results for ALT. Performed By: #### 2 524-7 #### ANANYA CLEMENTS ([id number]) [facility] ([facility]) [address] [place] [address] 55087 Anion gap [Moles/Vol] 18 mmol/L Normal 10-20 [facility] Comment on above: Performed By: #### 2 524-7 #### ANANYA CLEMENTS ([id number]) [facility] ([facility]) [address] [place] [address] 16427 AST With P-5'-P [Catalytic activity/Vol] 12 U/L Normal 9-39 [facility] Comment on above: Performed By: #### 2 524-7 #### ANANYA CLEMENTS ([id number]) [facility] ([facility]) [address] [place] [address] Bilirubin [Mass/Vol] 0.2 mg/dL Normal 0.0-1.2 [facility] Comment on above: Performed By: #### 2 524-7 #### ANANYA CLEMENTS ([id number]) [facility] ([facility]) [address] [place] [address] Calcium [Mass/Vol] 9.8 mg/dL Normal 8.6-10.3 [facility] Comment on above: Performed By: #### 2 524-7 #### ANANYA CLEMENTS ([id number]) [facility] ([facility]) [address] [place] [address] 08979 Chloride [Moles/Vol] 107 mmol/L Normal 98-107 [facility] Comment on above: Performed By: #### 2 524-7 #### ANANYA CLEMENTS ([id number]) [facility] ([facility]) [address] [place] [address] CO2 [Moles/Vol] 13 mmol/L Low 21-32 [facility] Comment on above: Performed By: #### 2 524-7 #### ANANYA CLEMENTS ([id number]) [facility] ([facility]) [address] [place] [address] Creatinine [Mass/Vol] 2.00 mg/dL High 0.50-1.05 [facility] Comment on above: Performed By: #### 2 524-7 #### ANANYA CLEMENTS ([id number]) [facility] ([facility]) [facility] [place] [address] Glomerular filtration rate/1.73 sq M.predicted 27 mL/min/1.73m*2 Low >60 [facility] Comment on above: Result Comment: Calc ulations of estimated GFR are performed using the 2020 CKD-EPI Study Refit equation without the race variable for the IDMS-Traceable creatinine methods. https://jasn.asnjournals.org/content//ASN.2020 740935 Performed By: #### 2 524-7 #### ANANYA CLEMENTS ([id number]) [facility] ([facility]) [address] [place] [address] 64485 Glucose [Mass/Vol] 207 mg/dL High 74-99 [facility] Comment on above: Performed By: #### 2 524-7 #### ANANYA CLEMENTS ([id number]) [facility] ([facility]) [address] [place] [address] 35715 Potassium [Moles/Vol] 2.8 mmol/L Critically low 3.5-5.3 [facility] Comment on above: Result Comment: Conf irmed by repeat analysis Performed By: #### 2 524-7 #### ANANYA CLEMENTS ([id number]) [facility] ([facility]) [address] [place] [address] 52431 Protein [Mass/Vol] 6.9 g/dL Normal 6.4-8.2 [facility] Comment on above: Performed By: #### 2 524-7 #### ANANYA CLEMENTS ([id number]) [facility] ([facility]) [address] [place] [address] 62427 Sodium [Moles/Vol] 135 mmol/L Low 136-145 [facility] Comment on above: Performed By: #### 2 524-7 #### ANANYA CLEMENTS ([id number]) [facility] ([facility]) [address] [place] [address] 27366 Urea nitrogen [Mass/Vol] 24 mg/dL High 6-23 [facility] Comment on above: Performed By: #### 2 524-7 #### ANANYA CLEMENTS ([id number]) [facility] ([facility]) [address] [place] [address] 57934 ECG 12-LEADon 10-03-2023 ECG 12-LEAD Ventricular Rate 106 Atrial Rate 106 P-R Interval 138 QRS Duration 70 Q-T Interval 356 QTC Calculation(Bazett) 472 P Pomeroy 76 R Pomeroy -1 T Pomeroy 72 QRS Count 17 Q Onset 226 P Onset 157 P Offset 203 T Offset 404 QTC Fredericia 430 Diagnosis Sinus tachycardia Nonspecific ST abnormality Abnormal ECG No previous ECGs available See ED provider note for full interpretation and clinical correlation Confirmed by Gladys Ramos ([id number]) on 10/13/2023 1:18:11 PM Normal [facility] Gastrointestinal pathogens i dentifiedon 10-03-2023 Gastrointestinal pathogens identified KARIN+probe Nom (Stl) Campylobacter coli+jejuni+upsaliensis DNA Not Detected Salmonella sp DNA Not Detected Shigella sp DNA Not Detected Vibrio cholerae DNA Not Detected Yersinia enterocolitica DNA Not Detected Escherichia coli Stx1 toxin stx1 gene Not Detected Escherichia coli Stx2 toxin stx2 gene Not Detected Norovirus genogroup I AND II RNA Not Detected Rotavirus RNA Not Detected Normal Not Detected [facility] Comment on above: Performed By: #### 2 524-7 #### ANANYA CLEMENTS ([id number]) [facility] ([facility]) [facility] [place] [address] Lactateon 10-03-2023 Lactate [Moles/Vol] 2.5 mmol/L High 0.4 - 2. 0 mmol/L [facility] Lactate [Moles/Vol] 2.5 mmol/L High 0.4-2.0 [facility] Comment on above: Order Comment: Venip uncture immediately after or during the administration of Metamizole may lead to falsely low results. Testing should be performed immediately prior to Metamizole dosing. Performed By: #### 2 524-7 #### ANANYA CLEMENTS ([id number]) [facility] ([facility]) [facility] [place] [address] Lactate [Moles/Vol]on 2023 Interpretation and review of laboratory results Abnormal [facility] Venipuncture immediately after or during the administration of Metamizole may lead to falsely low results. Testing should be performed immediately prior to Metamizole dosing. [facility] Lipaseon 10-03-2023 Lipase [Catalytic activity/Vol] 79 U/L 9 - 82 U/L [facility] Lipase [Catalytic activity/V ol]on 10-03-2023 Interpretation and review of laboratory results Normal [facility] Venipuncture immediately after or during the administration of Metamizole may lead to falsely low results. Testing should be performed immediately prior to Metamizole dosing. [facility] Magnesiumon 10-03-2023 Magnesium [Mass/Vol] 1.53 mg/dL Low 1.60 - 2.40 mg/dL [facility] Magnesium [Mass/Vol] 1.53 mg/dL Low 1.60-2.40 [facility] Comment on above: Performed By: #### 2 524-7 #### HARE STARR ([id number]) [facility] ([facility]) [address] [place] [address] Manual differential performe d Ql (Bld)on 10-03-2023 Basophils (Bld) [#/Vol] 0.00 10*3/uL [facility] Basophils/100 WBC (Bld) 0.0 % 0.0 - 2.0 % [facility] Cells Counted Total (Bld) [#] 100 {cells} [facility] Eosinophils (Bld) [#/Vol] 0.21 10*3/uL [facility] Eosinophils/100 WBC (Bld) 1.0 % 0.0 - 6.0 % [facility] Interpretation and review of laboratory results Abnormal [facility] Lymphocytes (Bld) [#/Vol] 2.54 10*3/uL [facility] Lymphocytes/100 WBC (Bld) 12.0 % 13.0 - 44.0 % [facility] Monocytes (Bld) [#/Vol] 0.85 10*3/uL [facility] Monocytes/100 WBC (Bld) 4.0 % 2.0 - 10.0 % [facility] RBC morphology finding Nom (Bld) No significant RBC morphology present [facility] Segmented neutrophils (Bld) [#/Vol] 17.60 10*3/uL High [facility] Segmented neutrophils/100 WBC (Bld) 83.0 % 40.0 - 80.0 % [facility] Comment on above: Percent differential counts (%) should be interpreted in the context of the absolute cell counts (cells/uL). [facility] Basophils (Bld) [#/Vol] 0.00 x10*3/uL Normal 0.00-0.10 [facility] Comment on above: Performed By: #### 2 524-7 #### ANANYA CLEMENTS ([id number]) [facility] ([facility]) [address] [place] [address] 57263 Basophils/100 WBC (Bld) 0.0 % Normal 0.0-2.0 U [facility] Comment on above: Performed By: #### 2 524-7 #### ANANYA CLEMENTS ([id number]) [facility] ([facility]) [address] [place] [address] 76983 Cells Counted Total (Bld) [#] 100 Normal [facility] Comment on above: Performed By: #### 2 524-7 #### ANANYA CLEMENTS ([id number]) [facility] ([facility]) [address] [place] [address] 63445 Eosinophils (Bld) [#/Vol] 0.21 x10*3/uL Normal 0.00-0.70 [facility] Comment on above: Performed By: #### 2 524-7 #### ANANYA CLEMENTS ([id number]) [facility] ([facility]) [address] [place] [address] 41950 Eosinophils/100 WBC (Bld) 1.0 % Normal 0.0-6.0 [facility] Comment on above: Performed By: #### 2 524-7 #### ANANYA CLEMENTS ([id number]) [facility] ([facility]) [address] [place] [address] 55914 Lymphocytes (Bld) [#/Vol] 2.54 x10*3/uL Normal 1.20-4.80 [facility] Comment on above: Performed By: #### 2 524-7 #### ANANYA CLEMENTS ([id number]) [facility] ([facility]) [address] [place] [address] 65220 Lymphocytes/100 WBC (Bld) 12.0 % Normal 13.0-44.0 [facility] Comment on above: Performed By: #### 2 524-7 #### ANANYA CLEMENTS ([id number]) [facility] ([facility]) [address] [place] [address] Monocytes (Bld) [#/Vol] 0.85 x10*3/uL Normal 0.10-1.00 [facility] Comment on above: Performed By: #### 2 524-7 #### ANANYA CLEMENTS ([id number]) [facility] ([facility]) [address] [place] [address] Monocytes/100 WBC (Bld) 4.0 % Normal 2.0-10.0 U [facility] Comment on above: Performed By: #### 2 524-7 #### ANANYA CLEMENTS ([id number]) [facility] ([facility]) [address] [place] [address] RBC morphology finding Nom (Bld) No significant RBC morphology present Normal [facility] Comment on above: Performed By: #### 2 524-7 #### ANANYA CLEMENTS ([id number]) [facility] ([facility]) [address] [place] [address] Segmented neutrophils (Bld) [#/Vol] 17.60 x10*3/uL High 1.20-7.00 [facility] Comment on above: Performed By: #### 2 524-7 #### ANANYA CLEMENTS ([id number]) [facility] ([facility]) [address] [place] [address] Segmented neutrophils/100 WBC (Bld) 83.0 % Normal 40.0-80.0 [facility] Comment on above: Result Comment: Perc ent differential counts (%) should be interpreted in the context of the absolute cell counts (cells/uL). Performed By: #### 2 524-7 #### ANANYA CLEMENTS ([id number]) [facility] ([facility]) [address] [place] [address] No Panel Informationon 10-02 Extra Tube Hold for add-ons. [facility] Comment on above: Auto resulted. [facility] Interpretation and review of laboratory results Abnormal [facility] Triacylglycerol lipaseon Lipase [Catalytic activity/Vol] 79 U/L Normal 9-82 [facility] Comment on above: Order Comment: Venip uncture immediately after or during the administration of Metamizole may lead to falsely low results. Testing should be performed immediately prior to Metamizole dosing. Performed By: #### 2 524-7 #### ANANYA CLEMENTS ([id number]) [facility] ([facility]) [address] [place] [address] Glucose Test strip manual (B ld) [Mass/Vol]on 09-29-2023 Glucose [Mass/Vol] 121 mg/dL High 74-[address] [facility] Comment on above: Performed By: #### 2 341-6 ####LINDA Beckett ([id number])[facility] ([facility])[id number] [place] [address] Glucose [Mass/Vol] 118 mg/dL High 74-[address] [facility] Comment on above: Performed By: #### 2 341-6 ####LINDA Beckett ([id number])[facility] ([facility])[address] [place] [address] Glucose [Mass/Vol] 107 mg/dL High 74-[address] [facility] Comment on above: Performed By: #### 2 341-6 ####LINDA Beckett ([id number])[facility] ([facility])[address] [place] [address] Magnesiumon 09-29-2023 Magnesium [Mass/Vol] 1.80 mg/dL Normal 1.60-2.40 [facility] Comment on above: Performed By: #### 1 9123-9 ####LINDA Beckett ([id number])[facility] ([facility])[address] [place] [address] Renal function 2000 panelon 09-29-2023 Albumin BCP dye [Mass/Vol] 2.5 g/dL Low 3.4-5.0 [facility] Comment on above: Performed By: #### 2 4362-6 ####LINDA Beckett ([id number])[facility] ([facility])[address] [place] [address] Anion gap [Moles/Vol] 12 mmol/L Normal 10-20 [facility] Comment on above: Performed By: #### 2 4362-6 ####LINDA Beckett ([id number])[facility] ([facility])[address] [place] [address] Calcium [Mass/Vol] 7.9 mg/dL Low 8.6-10.[address] [facility] Comment on above: Performed By: #### 2 4362-6 ####LINDA Beckett ([id number])[facility] ([facility])[address] [place] [address] Chloride [Moles/Vol] 109 mmol/L High 98-107 [facility] Comment on above: Performed By: #### 2 4362-6 ####LINDA Beckett ([id number])[facility] ([facility])[address] [place] [address] CO2 [Moles/Vol] 23 mmol/L Normal 21-32 [facility] Comment on above: Performed By: #### 2 4362-6 ####LINDA Beckett ([id number])[facility] ([facility])[address] [place] [address] Creatinine [Mass/Vol] 0.31 mg/dL Low 0.50-1.05 [facility] Comment on above: Performed By: #### 2 4362-6 ####LINDA KUMARI L ([id number])[facility] ([facility])[address] [place] [address] GFR/1.73 sq M.predicted MDRD (S/P/Bld) [Vol rate/Area] mL/min/{1.73_m2} Normal >60 [facility] Comment on above: Result Comment: Calc ulations of estimated GFR are performed using the 2020 CKD-EPI Study Refit equation without the race variable for the IDMS-Traceable creatinine methods. https://jasn.asnjournals.org/content/early//ASN.2020 312874 Performed By: #### 2 4362-6 ####LINDA Beckett ([id number])[facility] ([facility])[address] [place] [address] Glucose [Mass/Vol] 110 mg/dL High 74-[address] [facility] Comment on above: Performed By: #### 2 4362-6 ####LINDA Beckett ([id number])[facility] ([facility])[address] [place] [address] Phosphate [Mass/Vol] 4.3 mg/dL Normal 2.5-4.9 [facility] Comment on above: Result Comment: The performance characteristics of phosphorus testing in heparinized plasma have been validated by the individual laboratory site where testing is performed. Testing on heparinized plasma is not approved by the FDA; however, such approval is not necessary. Performed By: #### 2 4362-6 ####LINDA Beckett ([id number])[facility] ([facility])[address] [place] [address] Potassium [Moles/Vol] 4.0 mmol/L Normal 3.5-5.3 [facility] Comment on above: Performed By: #### 2 4362-6 ####LINDA Beckett ([id number])[facility] ([facility])[address] [place] [address] Sodium [Moles/Vol] 140 mmol/L Normal 136-[address] [facility] Comment on above: Performed By: #### 2 4362-6 ####LINDA Beckett ([id number])[facility] ([facility])[address]75 [place] [address] Urea nitrogen [Mass/Vol] 11 mg/dL Normal 6-23 [facility] Comment on above: Performed By: #### 2 4362-6 ####LINDA Beckett ([id number])[facility] ([facility])[address]39 [place] [address] Glucose Test strip manual (B ld) [Mass/Vol]on 09-28-2023 Glucose [Mass/Vol] 102 mg/dL High 74-[address] [facility] Comment on above: Performed By: #### 2 341-6 ####LINDA Beckett ([id number])[facility] ([facility])[address] [place] [address] Glucose [Mass/Vol] 99 mg/dL Normal 74-[address] [facility] Comment on above: Performed By: #### 2 341-6 ####LINDA Beckett ([id number])[facility] ([facility])[address] [place] [address] Glucose [Mass/Vol] 111 mg/dL High 74-[address] [facility] Comment on above: Performed By: #### 2 341-6 ####LINDA Beckett ([id number])[facility] ([facility])[address] [place] [address] Glucose [Mass/Vol] 120 mg/dL High 74-[address] [facility] Comment on above: Performed By: #### 2 341-6 #### LINDA Beckett ([id number]) [facility] ([facility]) [address] [place] [address] Glucose [Mass/Vol] 134 mg/dL High [address] [place] [address] Comment on above: Performed By: #### 2 341-6 #### LINDA Beckett ([id number]) [facility] ([facility]) [address] [place] [address] Magnesiumon 09-28-2023 Magnesium [Mass/Vol] 1.82 mg/dL Normal 1.60-2.40 [facility] Comment on above: Performed By: #### 2 341-6 #### LINDA Beckett ([id number]) [facility] ([facility]) [address] [place] [address] Renal function 2000 panelon 09-28-2023 Albumin BCP dye [Mass/Vol] 2.4 g/dL Low 3.4-5.0 [facility] Comment on above: Performed By: #### 2 341-6 #### LINDA KUMARI L ([id number]) [facility] ([facility]) [address] [place] [address] Anion gap [Moles/Vol] 12 mmol/L Normal 10-20 [facility] Comment on above: Performed By: #### 2 341-6 #### LINDA KUMARI L ([id number]) [facility] ([facility]) [address] [place] [address] Calcium [Mass/Vol] 7.6 mg/dL Low 8.6-10.[address] [facility] Comment on above: Performed By: #### 2 341-6 #### LINDA KUMARI L ([id number]) [facility] ([facility]) [address] [place] [address] Chloride [Moles/Vol] 109 mmol/L High 98-107 [facility] Comment on above: Performed By: #### 2 341-6 #### LINDA KUMARI L ([id number]) [facility] ([facility]) [address] [place] [address] CO2 [Moles/Vol] 22 mmol/L Normal 21-32 [facility] Comment on above: Performed By: #### 2 341-6 #### LINDA MCDANIELMOTZDASHA L ([id number]) [facility] ([facility]) [address] [place] [address] Creatinine [Mass/Vol] 0.35 mg/dL Low 0.50-1.05 [facility] Comment on above: Performed By: #### 2 341-6 #### LINDA ELTZER L ([id number]) [facility] ([facility]) [address] [place] [address]39[address] GFR/1.73 sq M.predicted MDRD (S/P/Bld) [Vol rate/Area] mL/min/{1.73_m2} Normal >60 [facility] Comment on above: Result Comment: Calc ulations of estimated GFR are performed using the 2020 CKD-EPI Study Refit equation without the race variable for the IDMS-Traceable creatinine methods. https://jasn.asnjournals.org/content/ASN.2020 250828 Performed By: #### 2 341-6 #### LINDA Beckett ([id number]) [facility] ([facility]) [address] [place] [address] Glucose [Mass/Vol] 122 mg/dL High 74-[address] [facility] Comment on above: Performed By: #### 2 341-6 #### LNIDA Beckett ([id number]) [facility] ([facility]) [address] [place] [address] Phosphate [Mass/Vol] 3.5 mg/dL Normal 2.5-4.9 [facility] Comment on above: Result Comment: The performance characteristics of phosphorus testing in heparinized plasma have been validated by the individual laboratory site where testing is performed. Testing on heparinized plasma is not approved by the FDA; however, such approval is not necessary. Performed By: #### 2 341-6 #### LINDA Beckett ([id number]) [facility] ([facility]) [address] [place] [address] Potassium [Moles/Vol] 3.7 mmol/L Normal 3.5-5.3 [facility] Comment on above: Performed By: #### 2 341-6 #### LINDA Beckett ([id number]) [facility] ([facility]) [address] [place] [address] Sodium [Moles/Vol] 139 mmol/L Normal 136-[address] [facility] Comment on above: Performed By: #### 2 341-6 #### LINDA KUMARI L ([id number]) [facility] ([facility]) [address] [place] [address] Urea nitrogen [Mass/Vol] 12 mg/dL Normal 6-23 [facility] Comment on above: Performed By: #### 2 341-6 #### LINDA KUMARI L ([id number]) [facility] ([facility]) [address] [place] [address] CBC panel Auto (Bld)on 09-26 Erythrocyte distribution width (RBC) [Ratio] 12.9 % Normal 11.5-14.5 [facility] Comment on above: Performed By: #### 3 4532-2 #### LINDA Beckett ([id number]) [facility] ([facility]) [address] [place] [address] Hematocrit (Bld) [Volume fraction] 32.2 % Low 36.0-46.0 [facility] Comment on above: Performed By: #### 3 4531-2 #### LINDA Beckett ([id number]) [facility] ([facility]) [address] [place] [address] Hemoglobin (Bld) [Mass/Vol] 10.5 g/dL Low 12.0-16.0 [facility] Comment on above: Performed By: #### 3 4531-2 #### LINDA Beckett ([id number]) [facility] ([facility]) [address] [place] [address] MCH (RBC) [Entitic mass] 32.0 pg Normal 26.0-34.0 [facility] Comment on above: Performed By: #### 3 4531-2 #### LINDA Beckett ([id number]) [facility] ([facility]) [address] [place] [address] MCHC (RBC) [Mass/Vol] 32.6 g/dL Normal 32.0-36.0 [facility] Comment on above: Performed By: #### 3 453-2 #### LINDA Beckett ([id number]) [facility] ([facility]) [address] [place] [address] MCV (RBC) [Entitic vol] 98 fL Normal 80-100 [facility] Comment on above: Performed By: #### 3 4531-2 #### LINDA Beckett ([id number]) [facility] ([facility]) [address] [place] [address] [place] [address] Nucleated RBC/100 WBC (Bld) [Ratio] 0.0 /100 WBCs Normal 0.0-0.0 [facility] Comment on above: Performed By: #### 3 4532-2 #### LINDA Beckett ([id number]) [facility] ([facility]) [address] [place] [address] Platelets (Bld) [#/Vol] 290 x10*3/uL Normal 150-450 [facility] Comment on above: Performed By: #### 3 4532-2 #### LINDA Beckett ([id number]) [facility] ([facility]) [address] [place] [address] RBC (Bld) [#/Vol] 3.28 x10*6/uL Low 4.00-5.20 [facility] Comment on above: Performed By: #### 3 4532-2 #### LINDA Beckett ([id number]) [facility] ([facility]) [address] [place] [address] WBC (Bld) [#/Vol] 9.5 x10*3/uL Normal 4.4-11.3 [facility] Comment on above: Performed By: #### 3 4532-2 #### LINDA Beckett ([id number]) [facility] ([facility]) [address] [place] [address] Glucose Test strip manual (B ld) [Mass/Vol]on 09-27-2023 Glucose [Mass/Vol] 132 mg/dL High 74-[address] [facility] Comment on above: Performed By: #### 2 341-6 #### LINDA Beckett ([id number]) [facility] ([facility]) [address] [place] [address] Glucose [Mass/Vol] 134 mg/dL High 74-[address] [facility] Comment on above: Performed By: #### 2 341-6 #### LINDA Beckett ([id number]) [facility] ([facility]) [address] [place] [address] Glucose [Mass/Vol] 123 mg/dL High 74-[address] [facility] Comment on above: Performed By: #### 2 341-6 #### LINDA Beckett ([id number]) [facility] ([facility]) [address] [place] [address] Glucose [Mass/Vol] 118 mg/dL High 74-[address] [place] [address] Comment on above: Performed By: #### 2 341-6 #### LINDA Beckett ([id number]) [facility] ([facility]) [address] [place] [address] Glucose [Mass/Vol] 148 mg/dL High -[address] [place] [address] Comment on above: Performed By: #### 3 4532-2 #### LINDA Beckett (67862) [facility] ([facility]) [address] [place] [address] Glucose [Mass/Vol] 152 mg/dL High 74-[address] [place] [address] Comment on above: Performed By: #### 3 4532-2 #### LINDA Beckett ([id number]) [facility] ([facility]) [address] [place] [address] Magnesiumon 09-27-2023 Magnesium [Mass/Vol] 1.70 mg/dL Normal 1.60-2.40 [facility] Comment on above: Performed By: #### 3 4532-2 #### LINDA Beckett ([id number]) [facility] ([facility]) [address] [place] [address] Renal function 2000 panelon 09-27-2023 Albumin BCP dye [Mass/Vol] 2.5 g/dL Low 3.4-5.0 [facility] Comment on above: Performed By: #### 2 341-6 #### LINDA Beckett ([id number]) [facility] ([facility]) [address] [place] [address] Anion gap [Moles/Vol] 12 mmol/L Normal 10-20 [facility] Comment on above: Performed By: #### 2 341-6 #### LINDA KUMARI L ([id number]) [facility] ([facility]) [address] [place] [address] Calcium [Mass/Vol] 7.6 mg/dL Low 8.6-10.[address] [facility] Comment on above: Performed By: #### 2 341-6 #### LINDA TAVERASER L ([id number]) [facility] ([facility]) [address] [place] [address] Chloride [Moles/Vol] 108 mmol/L High 98-107 [facility] Comment on above: Performed By: #### 2 341-6 #### LINDA KUMARI L ([id number]) [facility] ([facility]) [address] [place] [address] CO2 [Moles/Vol] 20 mmol/L Low 21-32 [facility] Comment on above: Performed By: #### 2 341-6 #### LINDA KUMARI L (59348) [facility] ([facility]) [address] [place] [address] Creatinine [Mass/Vol] 0.34 mg/dL Low 0.50-1.05 [facility] Comment on above: Performed By: #### 2 341-6 #### LINDA KUMARI L (37597) [facility] ([facility]) [address] [place] [address]27 GFR/1.73 sq M.predicted MDRD (S/P/Bld) [Vol rate/Area] mL/min/{1.73_m2} Normal >60 [facility] Comment on above: Result Comment: Calc ulations of estimated GFR are performed using the 2020 CKD-EPI Study Refit equation without the race variable for the IDMS-Traceable creatinine methods. https://jasn.asnjournals.org/content//ASN.2020 804719 Performed By: #### 2 341-6 #### LINDA Beckett ([id number]) [facility] ([facility]) [address] [place] [address] Glucose [Mass/Vol] 124 mg/dL High 74-[address] [facility] Comment on above: Performed By: #### 2 341-6 #### LINDA Beckett ([id number]) [facility] ([facility]) [address] [place] [address] Phosphate [Mass/Vol] 3.1 mg/dL Normal 2.5-4.9 [facility] Comment on above: Result Comment: The performance characteristics of phosphorus testing in heparinized plasma have been validated by the individual laboratory site where testing is performed. Testing on heparinized plasma is not approved by the FDA; however, such approval is not necessary. Performed By: #### 2 341-6 #### LINDA Beckett ([id number]) [facility] ([facility]) [address] [place] [address] Potassium [Moles/Vol] 3.6 mmol/L Normal 3.5-5.3 [facility] Comment on above: Performed By: #### 2 341-6 #### LINDA Beckett ([id number]) [facility] ([facility]) [address] [place] [address] Sodium [Moles/Vol] 136 mmol/L Normal 136-[address] [facility] Comment on above: Performed By: #### 2 341-6 #### LINDA Beckett ([id number]) [facility] ([facility]) [address] [place] [address] Urea nitrogen [Mass/Vol] 15 mg/dL Normal 6-23 [facility] Comment on above: Performed By: #### 2 341-6 #### LINDA Beckett ([id number]) [facility] ([facility]) [address] [place] [address] Albumin BCP dye [Mass/Vol] 2.4 g/dL Low 3.4-5.0 [facility] Comment on above: Performed By: #### 2 341-6 #### LINDA Beckett (87286) [facility] ([facility]) [address] [place] [address] Anion gap [Moles/Vol] 12 mmol/L Normal 10-20 [facility] Comment on above: Performed By: #### 2 341-6 #### LINDA KUMARI L ([id number]) [facility] ([facility]) [address] [place] [address] Calcium [Mass/Vol] 7.8 mg/dL Low 8.6-10.[address] [facility] Comment on above: Performed By: #### 2 341-6 #### LINDA KUMARI L ([id number]) [facility] ([facility]) [address] [place] [address] Chloride [Moles/Vol] 103 mmol/L Normal 98-107 [facility] Comment on above: Performed By: #### 2 341-6 #### LINDA KUMARI L (38395) [facility] ([facility]) [address] [place] [address] CO2 [Moles/Vol] 20 mmol/L Low 21-32 [facility] Comment on above: Performed By: #### 2 341-6 #### LINDA KUMARI L ([id number]) [facility] ([facility]) [address] [place] [address] Creatinine [Mass/Vol] 0.44 mg/dL Low 0.50-1.05 [facility] Comment on above: Performed By: #### 2 341-6 #### LINDA KUMARI L ([id number]) [facility] ([facility]) [address] [place] [address] GFR/1.73 sq M.predicted MDRD (S/P/Bld) [Vol rate/Area] mL/min/{1.73_m2} Normal >60 [facility] Comment on above: Result Comment: Calc ulations of estimated GFR are performed using the 2020 CKD-EPI Study Refit equation without the race variable for the IDMS-Traceable creatinine methods. https://jasn.asnjournals.org/content//ASN.2020 932834 Performed By: #### 2 341-6 #### LINDA Beckett ([id number]) [facility] ([facility]) [address] [place] [address] Glucose [Mass/Vol] 595 mg/dL Critically high 74-99 [facility] Comment on above: Performed By: #### 2 341-6 #### LINDA Beckett (99057) [facility] ([facility]) [address] [place] [address] Phosphate [Mass/Vol] 5.2 mg/dL High 2.5-4.9 [facility] Comment on above: Result Comment: The performance characteristics of phosphorus testing in heparinized plasma have been validated by the individual laboratory site where testing is performed. Testing on heparinized plasma is not approved by the FDA; however, such approval is not necessary. Performed By: #### 2 341-6 #### LINDA Beckett ([id number]) [facility] ([facility]) [address] [place] [address] Potassium [Moles/Vol] 4.9 mmol/L Normal 3.5-5.3 [facility] Comment on above: Performed By: #### 2 341-6 #### LINDA Beckett ([id number]) [facility] ([facility]) [address] [place] [address] Sodium [Moles/Vol] 130 mmol/L Low 136-[address] [facility] Comment on above: Performed By: #### 2 341-6 #### LINDA Beckett ([id number]) [facility] ([facility]) [address] [place] [address] Urea nitrogen [Mass/Vol] 14 mg/dL Normal 6-23 [facility] Comment on above: Performed By: #### 2 341-6 #### LINDA Beckett ([id number]) [facility] ([facility]) [address] [place] [address] Albumin BCP dye [Mass/Vol] 2.6 g/dL Low 3.4-5.0 [facility] Comment on above: Performed By: #### 3 4532-2 #### LINDA Beckett ([id number]) [facility] ([facility]) [address] [place] [address] Anion gap [Moles/Vol] 16 mmol/L Normal 10-20 [facility] Comment on above: Performed By: #### 3 453-2 #### LINDA Beckett ([id number]) [facility] ([facility]) [address] [place] [address] Calcium [Mass/Vol] 8.1 mg/dL Low 8.6-10.[address] [facility] Comment on above: Performed By: #### 3 4532-2 #### LINDA Beckett ([id number]) [facility] ([facility]) [address] [place] [address] Chloride [Moles/Vol] 108 mmol/L High 98-107 [facility] Comment on above: Performed By: #### 3 4532-2 #### LINDA Beckett (77941) [facility] ([facility]) [address] [place] [address] CO2 [Moles/Vol] 18 mmol/L Low 21-32 [facility] Comment on above: Performed By: #### 3 4532-2 #### LINDA Beckett ([id number]) [facility] ([facility]) [address] [place] [address] Creatinine [Mass/Vol] 0.41 mg/dL Low 0.50-1.05 [facility] Comment on above: Performed By: #### 3 4532-2 #### LINDA Beckett ([id number]) [facility] ([facility]) [address] [place] [address] GFR/1.73 sq M.predicted MDRD (S/P/Bld) [Vol rate/Area] mL/min/{1.73_m2} Normal >60 [facility] Comment on above: Result Comment: Calc ulations of estimated GFR are performed using the 2020 CKD-EPI Study Refit equation without the race variable for the IDMS-Traceable creatinine methods. https://jasn.asnjournals.org/content/early/ASN.2020 249125 Performed By: #### 3 4532-2 #### LINDA Beckett ([id number]) [facility] ([facility]) [address] [place] [address] Glucose [Mass/Vol] 118 mg/dL High 74-[address] [facility] Comment on above: Performed By: #### 3 4532-2 #### LINDA Beckett ([id number]) [facility] ([facility]) [address] [place] [address] Phosphate [Mass/Vol] 3.8 mg/dL Normal 2.5-4.9 [facility] Comment on above: Result Comment: The performance characteristics of phosphorus testing in heparinized plasma have been validated by the individual laboratory site where testing is performed. Testing on heparinized plasma is not approved by the FDA; however, such approval is not necessary. Performed By: #### 3 4532-2 #### LINDA Beckett ([id number]) [facility] ([facility]) [address] [place] [address] Potassium [Moles/Vol] 3.8 mmol/L Normal 3.5-5.3 [facility] Comment on above: Performed By: #### 3 4532-2 #### LINDA Beckett ([id number]) [facility] ([facility]) [address] [place] [address] Sodium [Moles/Vol] 138 mmol/L Normal 136-[address] [facility] Comment on above: Performed By: #### 3 4532-2 #### LINDA Beckett ([id number]) [facility] ([facility]) [address] [place] [address] Urea nitrogen [Mass/Vol] 16 mg/dL Normal 6-23 [facility] Comment on above: Performed By: #### 3 4532-2 #### LINDA Beckett ([id number]) [facility] ([facility]) [address] [place] [address] Basic metabolic 2000 panelon 09-26-2023 Anion gap [Moles/Vol] 15 mmol/L Normal 10-20 [facility] Comment on above: Performed By: #### 3 4532-2 #### LINDA Beckett ([id number]) [facility] ([facility]) [address] [place] [address] Calcium [Mass/Vol] 8.2 mg/dL Low 8.6-10.[address] [facility] Comment on above: Performed By: #### 3 4532-2 #### LINDA Beckett ([id number]) [facility] ([facility]) [address] [place] [address] Chloride [Moles/Vol] 101 mmol/L Normal 98-107 [facility] Comment on above: Performed By: #### 3 4532-2 #### LINDA Beckett ([id number]) [facility] ([facility]) [address] [place] [address] CO2 [Moles/Vol] 19 mmol/L Low 21-32 [facility] Comment on above: Performed By: #### 3 4532-2 #### LINDA Beckett ([id number]) [facility] ([facility]) [address] [place] [address] Creatinine [Mass/Vol] 0.32 mg/dL Low 0.50-1.05 [facility] Comment on above: Performed By: #### 3 4532-2 #### LINDA Beckett ([id number]) [facility] ([facility]) [address] [place] [address] GFR/1.73 sq M.predicted MDRD (S/P/Bld) [Vol rate/Area] mL/min/{1.73_m2} Normal >60 [facility] Comment on above: Result Comment: Calc ulations of estimated GFR are performed using the 2020 CKD-EPI Study Refit equation without the race variable for the IDMS-Traceable creatinine methods. https://jasn.asnjournals.org/content/early/ASN.2020 544715 Performed By: #### 3 4532-2 #### LINDA Beckett ([id number]) [facility] ([facility]) [address] [place] [address] Glucose [Mass/Vol] 321 mg/dL High 74-[address] [facility] Comment on above: Performed By: #### 3 4532-2 #### LINDA Beckett ([id number]) [facility] ([facility]) [address] [place] [address] Potassium [Moles/Vol] 5.6 mmol/L High 3.5-5.3 [facility] Comment on above: Performed By: #### 3 4532-2 #### LINDA Beckett ([id number]) [facility] ([facility]) [address] [place] [address] Sodium [Moles/Vol] 129 mmol/L Low 136-[address] [facility] Comment on above: Performed By: #### 3 4532-2 #### LINDA Beckett ([id number]) [facility] ([facility]) [address] [place] [address] Urea nitrogen [Mass/Vol] 18 mg/dL Normal 6-23 [facility] Comment on above: Performed By: #### 3 4532-2 #### LINDA Beckett ([id number]) [facility] ([facility]) [address] [place] [address] CBC panel Auto (Bld)on 09-25 Erythrocyte distribution width (RBC) [Ratio] 12.8 % Normal 11.5-14.5 [facility] Comment on above: Performed By: #### 5 7021-8 #### LINDA Beckett ([id number]) [facility] ([facility]) [address] [place] [address] Hematocrit (Bld) [Volume fraction] 28.0 % Low 36.0-46.0 [facility] Comment on above: Performed By: #### 5 7021-8 #### LINDA Beckett ([id number]) [facility] ([facility]) [address] [place] [address] 24052 Hemoglobin (Bld) [Mass/Vol] 9.4 g/dL Low 12.0-16.0 [facility] Comment on above: Performed By: #### 5 7021-8 #### LINDA Beckett ([id number]) [facility] ([facility]) [address] [place] [address] 96731 MCH (RBC) [Entitic mass] 31.1 pg Normal 26.0-34.0 [facility] Comment on above: Performed By: #### 5 7021-8 #### LINDA Beckett ([id number]) [facility] ([facility]) [address] [place] [address] 33520 MCHC (RBC) [Mass/Vol] 33.6 g/dL Normal 32.0-36.0 [facility] Comment on above: Performed By: #### 5 7021-8 #### LINDA Beckett ([id number]) [facility] ([facility]) [address] [place] [address] 36260 MCV (RBC) [Entitic vol] 93 fL Normal 80-100 [facility] Comment on above: Performed By: #### 5 7021-8 #### LINDA Beckett ([id number]) [facility] ([facility]) [address] [place] [address] 12601 Nucleated RBC/100 WBC (Bld) [Ratio] 0.0 /100 WBCs Normal 0.0-0.0 [facility] Comment on above: Performed By: #### 5 7021-8 #### LINDA Beckett ([id number]) [facility] ([facility]) [address] [place] [address] 09181 Platelets (Bld) [#/Vol] 207 x10*3/uL Normal 150-450 [facility] Comment on above: Performed By: #### 5 7021-8 #### LINDA Beckett ([id number]) [facility] ([facility]) [address] [place] [address] 43562 RBC (Bld) [#/Vol] 3.02 x10*6/uL Low 4.00-5.20 [facility] Comment on above: Performed By: #### 5 7021-8 #### LINDA Beckett ([id number]) [facility] ([facility]) [address] [place] [address] 32115 WBC (Bld) [#/Vol] 14.6 x10*3/uL High 4.4-11.3 [facility] Comment on above: Performed By: #### 5 7021-8 #### LINDA Beckett ([id number]) [facility] ([facility]) [address] [place] [address] 76710 Creatinineon 09-26-2023 Creatinine (Body fld) [Mass/Vol] 0.31 mg/dL Normal Not established [facility] Comment on above: Order Comment: The p erformance characteristics of this test have been validated on peritoneal/ascites,pleural, pericardial, drain and dialysate fluid by the [facility] laboratory. This test has not been approved by the FDA; however, such approval is not necessary. Performed By: #### 5 7021-8 #### LINDA Beckett ([id number]) [facility] ([facility]) [address] [place] [address] 81331 Glucose Test strip manual (B ld) [Mass/Vol]on 09-26-2023 Glucose [Mass/Vol] 147 mg/dL High 74-[address] [facility] Comment on above: Performed By: #### 3 4532-2 #### LINDA Beckett ([id number]) [facility] ([facility]) [address] [place] [address] Glucose [Mass/Vol] 122 mg/dL High 74-[address] [facility] Comment on above: Performed By: #### 3 4532-2 #### LINDA Beckett (35607) [facility] ([facility]) [address] [place] [address] Glucose [Mass/Vol] 97 mg/dL Normal 74-[address] [facility] Comment on above: Performed By: #### 3 4532-2 #### LINDA Beckett ([id number]) [facility] ([facility]) [address] [place] [address] Glucose [Mass/Vol] 121 mg/dL High 74-[address] [facility] Comment on above: Performed By: #### 3 4532-2 #### LINDA Beckett ([id number]) [facility] ([facility]) [address] [place] [address] Glucose [Mass/Vol] 106 mg/dL High 74-[address] [facility] Comment on above: Performed By: #### 5 7021-8 #### LINDA Beckett ([id number]) [facility] ([facility]) [address] [place] [address] Glucose [Mass/Vol] 101 mg/dL High 74-[address] [facility] Comment on above: Performed By: #### 5 7021-8 #### LINDA Beckett (43901) [facility] ([facility]) [address] [place] [address] Glucose [Mass/Vol] 89 mg/dL Normal 74-[address] [facility] Comment on above: Performed By: #### 5 7021-8 #### LINDA Beckett ([id number]) [facility] ([facility]) [address] [place] [address] Magnesiumon 09-26-2023 Magnesium [Mass/Vol] 1.93 mg/dL Normal 1.60-2.40 [facility] Comment on above: Performed By: #### 5 7021-8 #### LINDA Beckett ([id number]) [facility] ([facility]) [address] [place] [address] 87650 CBC panel Auto (Bld)on 09-24 Erythrocyte distribution width (RBC) [Ratio] 12.6 % Normal 11.5-14.5 [facility] Comment on above: Performed By: #### 2 4323-8 #### LINDA Beckett ([id number]) [facility] ([facility]) [address] [place] [address] 02066 Hematocrit (Bld) [Volume fraction] 28.1 % Low 36.0-46.0 [facility] Comment on above: Performed By: #### 2 4323-8 #### LINDA Beckett ([id number]) [facility] ([facility]) [address] [place] [address] 18988 Hemoglobin (Bld) [Mass/Vol] 9.5 g/dL Low 12.0-16.0 [facility] Comment on above: Performed By: #### 2 4323-8 #### LINDA Beckett (67297) [facility] ([facility]) [address] [place] [address] 77434 MCH (RBC) [Entitic mass] 30.9 pg Normal 26.0-34.0 [facility] Comment on above: Performed By: #### 2 4323-8 #### LINDA Beckett ([id number]) [facility] ([facility]) [address] [place] [address] 93668 MCHC (RBC) [Mass/Vol] 33.8 g/dL Normal 32.0-36.0 [facility] Comment on above: Performed By: #### 2 4323-8 #### LINDA Beckett ([id number]) [facility] ([facility]) [address] [place] [address] 07765 MCV (RBC) [Entitic vol] 92 fL Normal 80-100 [facility] Comment on above: Performed By: #### 2 4323-8 #### LINDA Beckett ([id number]) [facility] ([facility]) [address] [place] [address] 93927 Nucleated RBC/100 WBC (Bld) [Ratio] 0.0 /100 WBCs Normal 0.0-0.0 [facility] Comment on above: Performed By: #### 2 4323-8 #### LINDA Beckett ([id number]) [facility] ([facility]) [address] [place] [address] 24392 Platelets (Bld) [#/Vol] 185 x10*3/uL Normal 150-450 [facility] Comment on above: Performed By: #### 2 4323-8 #### LINDA Beckett ([id number]) [facility] ([facility]) [address] [place] [address] 37921 RBC (Bld) [#/Vol] 3.07 x10*6/uL Low 4.00-5.20 [facility] Comment on above: Performed By: #### 2 4323-8 #### LINDA Beckett ([id number]) [facility] ([facility]) [address] [place] [address] 16349 WBC (Bld) [#/Vol] 14.0 x10*3/uL High 4.4-11.3 [facility] Comment on above: Performed By: #### 2 4323-8 #### LINDA Beckett ([id number]) [facility] ([facility]) [address] [place] [address] 97198 Glucose Test strip manual (B ld) [Mass/Vol]on 09-25-2023 Glucose [Mass/Vol] 152 mg/dL High 74-[address] [facility] Comment on above: Performed By: #### 5 7021-8 #### LINDA Beckett ([id number]) [facility] ([facility]) [address] [place] [address] 12173 Glucose [Mass/Vol] 137 mg/dL High 74-[address] [facility] Comment on above: Performed By: #### 5 7021-8 #### LINDA Beckett ([id number]) [facility] ([facility]) [address] [place] [address] 36332 Glucose [Mass/Vol] 167 mg/dL High 74-[address] [place] [address] Comment on above: Performed By: #### 5 7021-8 #### LINDA Beckett ([id number]) [facility] ([facility]) [address] [place] [address] 24658 Glucose [Mass/Vol] 159 mg/dL High [address] Comment on above: Performed By: #### 2 4323-8 #### LINDA Beckett ([id number]) [facility] ([facility]) [address] [place] [address] 13874 Glucose [Mass/Vol] 159 mg/dL High [address] [place] [address] Comment on above: Performed By: #### 2 4323-8 #### LINDA Beckett ([id number]) [facility] ([facility]) [address] [place] [address] 94015 Urinalysis complete W Reflex Culture panel (U)on 09-25-2023 Appearance (U) Clear Normal Clear [facility] Comment on above: Performed By: #### 5 7021-8 #### LINDA Beckett ([id number]) [facility] ([facility]) [address] [place] [address] 98700 Bilirubin (U) [Mass/Vol] Negative Normal NEGATIVE [facility] Comment on above: Performed By: #### 5 7021-8 #### LINDA Beckett ([id number]) [facility] ([facility]) [address] [place] [address] 03391 Color (U) Light-Yellow Normal Light-Yellow , Yellow, Dark-Yellow [facility] Comment on above: Performed By: #### 5 7021-8 #### LINDA Beckett ([id number]) [facility] ([facility]) [address] [place] [address] 86106 Glucose Auto test strip (U) [Mass/Vol] 30 (TRACE) Abnormal Normal [facility] Comment on above: Performed By: #### 5 7021-8 #### LINDA Beckett ([id number]) [facility] ([facility]) [address] [place] [address] 68109 Hyaline casts Auto (Urine sed) [#/Area] OCCASIONAL Abnormal NONE [facility] Comment on above: Performed By: #### 2 4323-8 #### LINDA Beckett ([id number]) [facility] ([facility]) [address] [place] [address] 67607 Ketones (U) [Mass/Vol] Negative Normal NEGATIVE [facility] Comment on above: Performed By: #### 5 7021-8 #### LINDA Beckett ([id number]) [facility] ([facility]) [address] [place] [address] 11377 Leukocyte esterase Auto test strip Ql (U) Negative Normal NEGATIVE [facility] Comment on above: Performed By: #### 5 7021-8 #### LINDA Beckett ([id number]) [facility] ([facility]) [address] [place] [address] 86338 Mucus Auto (Urine sed) [#/Area] FEW Normal Reference range not established. [facility] Comment on above: Performed By: #### 2 4323-8 #### LINDA Beckett ([id number]) [facility] ([facility]) [address] [place] [address] 42416 Nitrite Auto test strip Ql (U) Negative Normal NEGATIVE [facility] Comment on above: Performed By: #### 5 7021-8 #### LINDA Beckett ([id number]) [facility] ([facility]) [address] [place] [address] 72908 pH (U) 6.5 [pH] Normal 5.0, 5.5, 6.0, 6.5, 7.0, 7.5, 8.0 [facility] Comment on above: Performed By: #### 5 7021-8 #### LINDA Beckett ([id number]) [facility] ([facility]) [address] [place] [address] 02259 Protein (U) [Mass/Vol] 20 (TRACE) Normal NEGAT SHEKHAR, 10 (TRACE), 20 (TRACE) [facility] Comment on above: Performed By: #### 5 7021-8 #### LINDA Beckett ([id number]) [facility] ([facility]) [address] [place] [address] 03975 RBC (U) [#/Vol] 0.2 (2+) Abnormal NEGATIVE [facility] Comment on above: Performed By: #### 5 7021-8 #### LINDA Beckett (48514) [facility] ([facility]) [address] [place] [address] 64477 RBC Auto (Urine sed) [#/Area] >20 Abnormal NONE, 1-2, 3-5 [facility] Comment on above: Performed By: #### 2 4323-8 #### LINDA Beckett (60241) [facility] ([facility]) [address] [place] [address] 93315 Specific gravity (U) [Rel density] 1.034 Normal 1.005-1.035 [facility] Comment on above: Performed By: #### 5 7021-8 #### LINDA Beckett ([id number]) [facility] ([facility]) [address] [place] [address] 36385 Urobilinogen (U) [Mass/Vol] Normal Normal Normal [facility] Comment on above: Performed By: #### 5 7021-8 #### LINDA Beckett ([id number]) [facility] ([facility]) [address] [place] [address] 33922 WBC Auto (Urine sed) [#/Area] 1-5 Normal 1-5, NONE [facility] Comment on above: Performed By: #### 2 4323-8 #### LINDA Beckett ([id number]) [facility] ([facility]) [address] [place] [address] 70268 CBC panel Auto (Bld)on 09-23 Erythrocyte distribution width (RBC) [Ratio] 12.6 % Normal 11.5-14.5 [facility] Comment on above: Performed By: #### 1 9123-9 #### LINDA Beckett ([id number]) [facility] ([facility]) [address] [place] [address] 71994 Hematocrit (Bld) [Volume fraction] 37.9 % Normal 36.0-46.0 [facility] Comment on above: Performed By: #### 1 9123-9 #### LINDA Beckett ([id number]) [facility] ([facility]) [address] [place] [address] 98642 Hemoglobin (Bld) [Mass/Vol] 12.6 g/dL Normal 12.0-16.0 [facility] Comment on above: Performed By: #### 1 9123-9 #### LINDA Beckett (67228) [facility] ([facility]) [address] [place] [address] 28918 MCH (RBC) [Entitic mass] 31.7 pg Normal 26.0-34.0 [facility] Comment on above: Performed By: #### 1 9123-9 #### LINDA Beckett ([id number]) [facility] ([facility]) [address] [place] [address] 59652 MCHC (RBC) [Mass/Vol] 33.2 g/dL Normal 32.0-36.0 [facility] Comment on above: Performed By: #### 1 9123-9 #### LINDA Beckett (09442) [facility] ([facility]) [address] [place] [address] 80983 MCV (RBC) [Entitic vol] 95 fL Normal 80-100 [facility] Comment on above: Performed By: #### 1 9123-9 #### LINDA Beckett ([id number]) [facility] ([facility]) [address] [place] [address] 72198 Nucleated RBC/100 WBC (Bld) [Ratio] 0.0 /100 WBCs Normal 0.0-0.0 [facility] Comment on above: Performed By: #### 1 9123-9 #### LINDA Beckett ([id number]) [facility] ([facility]) [address] [place] [address] Platelets (Bld) [#/Vol] 231 x10*3/uL Normal 150-450 [facility] Comment on above: Performed By: #### 1 9123-9 #### LINDA Beckett ([id number]) [facility] ([facility]) [address] [place] [address] 35089 RBC (Bld) [#/Vol] 3.98 x10*6/uL Low 4.00-5.20 [facility] Comment on above: Performed By: #### 1 9123-9 #### LINDA Beckett ([id number]) [facility] ([facility]) [address] [place] [address] 74579 WBC (Bld) [#/Vol] 13.1 x10*3/uL High 4.4-11.3 [facility] Comment on above: Performed By: #### 1 9123-9 #### LINDA Beckett ([id number]) [facility] ([facility]) [address] [place] [address] 22318 Calcium.ionizedon 09-24-2023 Calcium.ionized (Bld) [Moles/Vol] 1.14 mmol/L Normal 1.1-1.33 [facility] Comment on above: Result Comment: The performance characteristics of ionized calcium tested in heparinized plasma or serum have been validated by the individual laboratory site where testing is performed. Testing on heparinized plasma or serum is not approved by the FDA; however, such approval is not necessary. Performed By: #### 1 9123-9 #### LINDA Beckett ([id number]) [facility] ([facility]) [address] [place] [address] 87836 ELECTROLYTE PANEL, URINEon 0 09-24-2023 Chloride (U) [Moles/Vol] mmol/L Normal [facility] Comment on above: Performed By: #### 2 4323-8 #### LINDA Beckett ([id number]) [facility] ([facility]) [address] [place] [address] 46928 CHLORIDE/CREATININE (MMOL/G) IN URINE Normal [facility] Comment on above: Result Comment: One or more analytes used in this calculation is outside of the analytical measurement range. Calculation cannot be performed. Performed By: #### 2 4323-8 #### LINDA Beckett ([id number]) [facility] ([facility]) [address] [place] [address] 39548 Creatinine (U) [Mass/Vol] 64.1 mg/dL Normal 20.0-320.0 [facility] Comment on above: Performed By: #### 2 4323-8 #### LINDA Beckett ([id number]) [facility] ([facility]) [address] [place] [address] 44807 Potassium (U) [Moles/Vol] 59 mmol/L Normal [facility] Comment on above: Performed By: #### 2 4323-8 #### LINDA Beckett ([id number]) [facility] ([facility]) [address] [place] [address] 26505 Potassium/Creatinine (U) [Ratio] 92 mmol/g Creat Normal Not established [facility] Comment on above: Performed By: #### 2 4323-8 #### LINDA Beckett ([id number]) [facility] ([facility]) [address] [place] [address] 45611 Sodium (U) [Moles/Vol] 45 mmol/L Normal Un [facility] Comment on above: Performed By: #### 2 4323-8 #### LINDA Beckett (65162) [facility] ([facility]) [address] [place] [address] 05967 Sodium/Creatinine (U) [Ratio] 70 mmol/g Creat Normal Not established. [facility] Comment on above: Performed By: #### 2 4323-8 #### LINDA Beckett ([id number]) [facility] ([facility]) [address] [place] [address] 04585 Glucose Test strip manual (B ld) [Mass/Vol]on 09-24-2023 Glucose [Mass/Vol] 195 mg/dL High 74-99 [facility] Comment on above: Performed By: #### 2 4323-8 #### LINDA Beckett ([id number]) [facility] ([facility]) [address] [place] [address] 92539 Glucose [Mass/Vol] 78 mg/dL Normal -[address] [place] [address] Comment on above: Performed By: #### 2 4323-8 #### LINDA Beckett ([id number]) [facility] ([facility]) [id number] [place] [address] 12056 Glucose [Mass/Vol] 115 mg/dL High [address] [place] [address] Comment on above: Performed By: #### 2 4323-8 #### LINDA Beckett ([id number]) [facility] ([facility]) [address] [place] [address] 01899 Glucose [Mass/Vol] 121 mg/dL High [address] [place] [address] Comment on above: Performed By: #### 2 4323-8 #### LINDA Beckett ([id number]) [facility] ([facility]) [id number] [place] [address] 42148 Glucose [Mass/Vol] 141 mg/dL High [address] [place] [address] Comment on above: Performed By: #### 1 9123-9 #### LINDA Beckett ([id number]) [facility] ([facility]) [id number] [place] [address] 09586 Glucose [Mass/Vol] 144 mg/dL High [address] [place] [address] Comment on above: Performed By: #### 1 9123-9 #### LINDA Beckett ([id number]) [facility] ([facility]) [address] [place] [address] 86492 Magnesiumon 09-24-2023 Magnesium [Mass/Vol] 1.87 mg/dL Normal 1.60-2.40 [facility] Comment on above: Performed By: #### 1 9123-9 #### LINDA Beckett ([id number]) [facility] ([facility]) [id number] [place] [address] 10897 Osmolalityon 09-24-2023 Osmolality [Osmolality] 289 mosm/kg Normal 280-300 [facility] Comment on above: Performed By: #### 2 4323-8 #### LINDA Beckett ([id number]) [facility] ([facility]) [id number] [place] [address] 43667 Renal function 2000 panelon 09-24-2023 Albumin BCP dye [Mass/Vol] 2.8 g/dL Low 3.4-5.0 [facility] Comment on above: Performed By: #### 1 9123-9 #### LINDA Beckett ([id number]) [facility] ([facility]) [address] [place] [address] 79958 Anion gap [Moles/Vol] 11 mmol/L Normal 10-20 [facility] Comment on above: Performed By: #### 1 9123-9 #### LINDA Beckett ([id number]) [facility] ([facility]) [address] [place] [address] 89757 Calcium [Mass/Vol] 8.7 mg/dL Normal 8.6-10.[address] [facility] Comment on above: Performed By: #### 1 9123-9 #### LINDA Beckett ([id number]) [facility] ([facility]) [address] [place] [address] 18429 Chloride [Moles/Vol] 98 mmol/L Normal 98-107 [facility] Comment on above: Performed By: #### 1 9123-9 #### LINDA Beckett ([id number]) [facility] ([facility]) [address] [place] [address] 66331 CO2 [Moles/Vol] 27 mmol/L Normal 21-32 [facility] Comment on above: Performed By: #### 1 9123-9 #### LINDA Beckett ([id number]) [facility] ([facility]) [address] [place] [address] 44288 Creatinine [Mass/Vol] 0.58 mg/dL Normal 0.50-1.05 [facility] Comment on above: Performed By: #### 1 9123-9 #### LINDA Beckett ([id number]) [facility] ([facility]) [address] [place] [address] 23264 GFR/1.73 sq M.predicted MDRD (S/P/Bld) [Vol rate/Area] mL/min/{1.73_m2} Normal >60 [facility] Comment on above: Result Comment: Calc ulations of estimated GFR are performed using the 2020 CKD-EPI Study Refit equation without the race variable for the IDMS-Traceable creatinine methods. https://jasn.asnjournals.org/content/early//ASN.2020 135889 Performed By: #### 1 9123-9 #### LINDA Beckett ([id number]) [facility] ([facility]) [address] [place] [address] 13873 Glucose [Mass/Vol] 131 mg/dL High 74-[address] [facility] Comment on above: Performed By: #### 1 9123-9 #### LINDA Beckett ([id number]) [facility] ([facility]) [address] [place] [address] 64796 Phosphate [Mass/Vol] 2.9 mg/dL Normal 2.5-4.9 [facility] Comment on above: Result Comment: The performance characteristics of phosphorus testing in heparinized plasma have been validated by the individual laboratory site where testing is performed. Testing on heparinized plasma is not approved by the FDA; however, such approval is not necessary. Performed By: #### 1 9123-9 #### LINDA Beckett ([id number]) [facility] ([facility]) [address] [place] [address] 58993 Potassium [Moles/Vol] 4.0 mmol/L Normal 3.5-5.3 [facility] Comment on above: Performed By: #### 1 9123-9 #### LINDA Beckett ([id number]) [facility] ([facility]) [address] [place] [address] Sodium [Moles/Vol] 132 mmol/L Low 136-[address] [facility] Comment on above: Performed By: #### 1 9123-9 #### LINDA Beckett ([id number]) [facility] ([facility]) [address] [place] [address] 61324 Urea nitrogen [Mass/Vol] 29 mg/dL High 6-23 [facility] Comment on above: Performed By: #### 1 9123-9 #### LINDA Beckett ([id number]) [facility] ([facility]) [id number] [place] [address] 17352 Albumin BCP dye [Mass/Vol] 2.8 g/dL Low 3.4-5.0 [facility] Comment on above: Performed By: #### 1 9123-9 #### LINDA Beckett ([id number]) [facility] ([facility]) [address] [place] [address] 28537 Anion gap [Moles/Vol] 11 mmol/L Normal 10-20 [facility] Comment on above: Performed By: #### 1 9123-9 #### LINDA Beckett ([id number]) [facility] ([facility]) [address] [place] [address] 57599 Calcium [Mass/Vol] 7.9 mg/dL Low 8.6-10.[address] [facility] Comment on above: Performed By: #### 1 9123-9 #### LINDA Beckett ([id number]) [facility] ([facility]) [address] [place] [address] 27512 Chloride [Moles/Vol] 95 mmol/L Low 98-107 [facility] Comment on above: Performed By: #### 1 9123-9 #### LINDA Beckett ([id number]) [facility] ([facility]) [address] [place] [address] 56032 CO2 [Moles/Vol] 27 mmol/L Normal 21-32 [facility] Comment on above: Performed By: #### 1 9123-9 #### LINDA Beckett ([id number]) [facility] ([facility]) [address] [place] [address] Creatinine [Mass/Vol] 0.64 mg/dL Normal 0.50-1.05 [facility] Comment on above: Performed By: #### 1 9123-9 #### LINDA Beckett ([id number]) [facility] ([facility]) [address] [place] [address] 08798 GFR/1.73 sq M.predicted MDRD (S/P/Bld) [Vol rate/Area] mL/min/{1.73_m2} Normal >60 [facility] Comment on above: Result Comment: Calc ulations of estimated GFR are performed using the 2020 CKD-EPI Study Refit equation without the race variable for the IDMS-Traceable creatinine methods. https://jasn.asnjournals.org/content//ASN.2020 231040 Performed By: #### 1 9123-9 #### LINDA Beckett ([id number]) [facility] ([facility]) [address] [place] [address] 36355 Glucose [Mass/Vol] 184 mg/dL High 74-[address] [facility] Comment on above: Performed By: #### 1 9123-9 #### LINDA Beckett ([id number]) [facility] ([facility]) [address] [place] [address] 97928 Phosphate [Mass/Vol] 3.8 mg/dL Normal 2.5-4.9 [facility] Comment on above: Result Comment: The performance characteristics of phosphorus testing in heparinized plasma have been validated by the individual laboratory site where testing is performed. Testing on heparinized plasma is not approved by the FDA; however, such approval is not necessary. Performed By: #### 1 9123-9 #### LINDA Beckett ([id number]) [facility] ([facility]) [address] [place] [address] Potassium [Moles/Vol] 4.4 mmol/L Normal 3.5-5.3 [facility] Comment on above: Performed By: #### 1 9123-9 #### LINDA Beckett ([id number]) [facility] ([facility]) [address] [place] [address] 82852 Sodium [Moles/Vol] 129 mmol/L Low 136-[address] [facility] Comment on above: Performed By: #### 1 9123-9 #### LINDA Beckett ([id number]) [facility] ([facility]) [address] [place] [address] 03345 Urea nitrogen [Mass/Vol] 32 mg/dL High 6-23 [facility] Comment on above: Performed By: #### 1 9123-9 #### LINDA Beckett ([id number]) [facility] ([facility]) [address] [place] [address] 90582 Basic metabolic 2000 panelon 09-23-2023 Anion gap [Moles/Vol] 14 mmol/L Normal 10-20 [facility] Comment on above: Order Comment: Next Draw Performed By: #### 1 9123-9 #### LINDA Beckett ([id number]) [facility] ([facility]) [address] [place] [address] 67885 Calcium [Mass/Vol] 7.8 mg/dL Low 8.6-10.[address] [facility] Comment on above: Order Comment: Next Draw Performed By: #### 1 9123-9 #### LINDA Beckett ([id number]) [facility] ([facility]) [address] [place] [address] 74447 Chloride [Moles/Vol] 99 mmol/L Normal 98-107 [facility] Comment on above: Order Comment: Next Draw Performed By: #### 1 9123-9 #### LINDA Beckett ([id number]) [facility] ([facility]) [address] [place] [address] 63697 CO2 [Moles/Vol] 26 mmol/L Normal 21-32 [facility] Comment on above: Order Comment: Next Draw Performed By: #### 1 9123-9 #### LINDA Beckett ([id number]) [facility] ([facility]) [address] [place] [address] Creatinine [Mass/Vol] 0.73 mg/dL Normal 0.50-1.05 [facility] Comment on above: Order Comment: Next Draw Performed By: #### 1 9123-9 #### LINDA Beckett ([id number]) [facility] ([facility]) [address] [place] [address] Glomerular filtration rate/1.73 sq M.predicted 90 mL/min/1.73m*2 Normal >60 [facility] Comment on above: Order Comment: Next Draw Result Comment: Calc ulations of estimated GFR are performed using the 2020 CKD-EPI Study Refit equation without the race variable for the IDMS-Traceable creatinine methods. https://jasn.asnjournals.org/content/early/ASN.2020 293166 Performed By: #### 1 9123-9 #### LINDA Beckett ([id number]) [facility] ([facility]) [address] [place] [address] Glucose [Mass/Vol] 159 mg/dL High 74-[address] [facility] Comment on above: Order Comment: Next Draw Performed By: #### 1 9123-9 #### LINDA Beckett ([id number]) [facility] ([facility]) [address] [place] [address] Potassium [Moles/Vol] 4.3 mmol/L Normal 3.5-5.3 [facility] Comment on above: Order Comment: Next Draw Performed By: #### 1 9123-9 #### LINDA Beckett ([id number]) [facility] ([facility]) [address] [place] [address] Sodium [Moles/Vol] 135 mmol/L Low 136-[address] [facility] Comment on above: Order Comment: Next Draw Performed By: #### 1 9123-9 #### LINDA Beckett ([id number]) [facility] ([facility]) [address] [place] [address] Urea nitrogen [Mass/Vol] 30 mg/dL High 6-23 [facility] Comment on above: Order Comment: Next Draw Performed By: #### 1 9123-9 #### LINDA Beckett ([id number]) [facility] ([facility]) [address] [place] [address] 03381 CBC panel Auto (Bld)on 09-22 Erythrocyte distribution width (RBC) [Ratio] 12.5 % Normal 11.5-14.5 [facility] Comment on above: Order Comment: Next Draw Performed By: #### 1 9123-9 #### LINDA Bekcett ([id number]) [facility] ([facility]) [address] [place] [address] 83208 Hematocrit (Bld) [Volume fraction] 38.6 % Normal 36.0-46.0 [facility] Comment on above: Order Comment: Next Draw Performed By: #### 1 9123-9 #### LINDA Beckett ([id number]) [facility] ([facility]) [address] [place] [address] 03726 Hemoglobin (Bld) [Mass/Vol] 12.7 g/dL Normal 12.0-16.0 [facility] Comment on above: Order Comment: Next Draw Performed By: #### 1 9123-9 #### LINDA Beckett ([id number]) [facility] ([facility]) [address] [place] [address] 08022 MCH (RBC) [Entitic mass] 30.5 pg Normal 26.0-34.0 [facility] Comment on above: Order Comment: Next Draw Performed By: #### 1 9123-9 #### LINDA Beckett ([id number]) [facility] ([facility]) [address] [place] [address] 22066 MCHC (RBC) [Mass/Vol] 32.9 g/dL Normal 32.0-36.0 [facility] Comment on above: Order Comment: Next Draw Performed By: #### 1 9123-9 #### LINDA Beckett ([id number]) [facility] ([facility]) [address] [place] [address] MCV (RBC) [Entitic vol] 93 fL Normal 80-100 [facility] Comment on above: Order Comment: Next Draw Performed By: #### 1 9123-9 #### LINDA Beckett ([id number]) [facility] ([facility]) [address] [place] [address] 50067 Nucleated RBC/100 WBC (Bld) [Ratio] 0.0 /100 WBCs Normal 0.0-0.0 [facility] Comment on above: Order Comment: Next Draw Performed By: #### 1 9123-9 #### LINDA Beckett ([id number]) [facility] ([facility]) [address] [place] [address] 13265 Platelets (Bld) [#/Vol] 257 x10*3/uL Normal 150-450 [facility] Comment on above: Order Comment: Next Draw Performed By: #### 1 9123-9 #### LINDA Beckett ([id number]) [facility] ([facility]) [address] [place] [address] 92969 RBC (Bld) [#/Vol] 4.16 x10*6/uL Normal 4.00-5.20 [facility] Comment on above: Order Comment: Next Draw Performed By: #### 1 9123-9 #### LINDA Beckett ([id number]) [facility] ([facility]) [address] [place] [address] 38417 WBC (Bld) [#/Vol] 9.3 x10*3/uL Normal 4.4-11.3 [facility] Comment on above: Order Comment: Next Draw Performed By: #### 1 9123-9 #### LINDA Beckett ([id number]) [facility] ([facility]) [address] [place] [address] 22289 Erythrocyte distribution width (RBC) [Ratio] 12.4 % Normal 11.5-14.5 [facility] Comment on above: Performed By: #### 5 902-2 #### LINDA Beckett ([id number]) [facility] ([facility]) [address] [place] [address] 88101 Hematocrit (Bld) [Volume fraction] 43.2 % Normal 36.0-46.0 [facility] Comment on above: Performed By: #### 5 902-2 #### LINDA Beckett ([id number]) [facility] ([facility]) [address] [place] [address] 31432 Hemoglobin (Bld) [Mass/Vol] 14.3 g/dL Normal 12.0-16.0 [facility] Comment on above: Performed By: #### 5 902-2 #### LINDA Beckett ([id number]) [facility] ([facility]) [address] [place] [address] 95038 MCH (RBC) [Entitic mass] 30.9 pg Normal 26.0-34.0 [facility] Comment on above: Performed By: #### 5 902-2 #### LINDA Beckett ([id number]) [facility] ([facility]) [address] [place] [address] 72204 MCHC (RBC) [Mass/Vol] 33.1 g/dL Normal 32.0-36.0 [facility] Comment on above: Performed By: #### 5 902-2 #### LINDA Beckett ([id number]) [facility] ([facility]) [address] [place] [address] 24485 MCV (RBC) [Entitic vol] 93 fL Normal 80-100 [facility] Comment on above: Performed By: #### 5 902-2 #### LINDA Beckett ([id number]) [facility] ([facility]) [address] [place] [address] 28864 Nucleated RBC/100 WBC (Bld) [Ratio] 0.0 /100 WBCs Normal 0.0-0.0 [facility] Comment on above: Performed By: #### 5 902-2 #### LINDA Beckett ([id number]) [facility] ([facility]) [address] [place] [address] 67181 Platelets (Bld) [#/Vol] 265 x10*3/uL Normal 150-450 [facility] Comment on above: Performed By: #### 5 902-2 #### LINDA Beckett ([id number]) [facility] ([facility]) [address] [place] [address] 01026 RBC (Bld) [#/Vol] 4.63 x10*6/uL Normal 4.00-5.20 [facility] Comment on above: Performed By: #### 5 902-2 #### LINDA Beckett ([id number]) [facility] ([facility]) [address] [place] [address] 39496 WBC (Bld) [#/Vol] 10.5 x10*3/uL Normal 4.4-11.3 [facility] Comment on above: Performed By: #### 5 902-2 #### LINDA Beckett ([id number]) [facility] ([facility]) [address] [place] [address] 75752 Gas and Carbon monoxide and Electrolytes panel (BldA)on 09-23-2023 Anion gap 4 (BldA) [Moles/Vol] 7 mmo/L Low 10-25 [facility] Comment on above: Performed By: #### 5 902-2 #### LINDA Beckett ([id number]) [facility] ([facility]) [address] [place] [address] 14491 Base excess Calc (Bld) [Moles/Vol] 5.0 mmol/L High -2.0-3.0 [facility] Comment on above: Performed By: #### 5 902-2 #### LINDA Beckett ([id number]) [facility] ([facility]) [address] [place] [address] 62379 Calcium.ionized (BldA) [Moles/Vol] 1.11 mmol/L Normal 1.10-1.33 [facility] Comment on above: Performed By: #### 5 902-2 #### LINDA Beckett ([id number]) [facility] ([facility]) [address] [place] [address] 99234 Chloride (BldA) [Moles/Vol] 96 mmol/L Low 98-107 [facility] Comment on above: Performed By: #### 5 902-2 #### LINDA Beckett ([id number]) [facility] ([facility]) [address] [place] [address] 35904 CO2 (Bld) [Partial pressure] 40 mm Hg Normal 38-42 [facility] Comment on above: Performed By: #### 5 902-2 #### LINDA Beckett ([id number]) [facility] ([facility]) [address] [place] [address] 24374 Glucose [Mass/Vol] 139 mg/dL High 74-[address] [facility] Comment on above: Performed By: #### 5 902-2 #### LINDA Beckett ([id number]) [facility] ([facility]) [address] [place] [address] 78577 HCO3 (Bld) [Moles/Vol] 29.1 mmol/L High 22.0-26.0 [facility] Comment on above: Performed By: #### 5 902-2 #### LINDA Beckett ([id number]) [facility] ([facility]) [address] [place] [address] 50057 Hematocrit Est (Bld) [Volume fraction] 53.0 % High 36.0-46.0 [facility] Comment on above: Performed By: #### 5 902-2 #### LINDA Beckett ([id number]) [facility] ([facility]) [address] [place] [address] 63748 Hemoglobin (Bld) [Mass/Vol] 17.8 g/dL High 12.0-16.0 [facility] Comment on above: Performed By: #### 5 902-2 #### LINDA Beckett ([id number]) [facility] ([facility]) [address] [place] [address] 35986 Inhaled oxygen concentration 47 % Normal [facility] Comment on above: Performed By: #### 5 902-2 #### LINDA Beckett ([id number]) [facility] ([facility]) [address] [place] [address] 65562 Lactate (BldA) [Moles/Vol] 2.0 mmol/L Normal 0.4-2.0 [facility] Comment on above: Performed By: #### 5 902-2 #### LINDA Beckett ([id number]) [facility] ([facility]) [address] [place] [address] 66935 Oxygen (Bld) [Partial pressure] 181 mm Hg High 85-95 [facility] Comment on above: Performed By: #### 5 902-2 #### LINDA Beckett ([id number]) [facility] ([facility]) [address] [place] [address] 30933 Oxyhemoglobin (BldA) [Mass fraction] 98.7 % High 94.0-98.0 [facility] Comment on above: Performed By: #### 5 902-2 #### LINDA Beckett ([id number]) [facility] ([facility]) [address] [place] [address] 28223 pH (Bld) 7.47 [pH] High 7.38-7.42 [facility] Comment on above: Performed By: #### 5 902-2 #### LINDA Beckett ([id number]) [facility] ([facility]) [address] [place] [address] 80468 Potassium (BldA) [Moles/Vol] 3.8 mmol/L Normal 3.5-5.3 [facility] Comment on above: Performed By: #### 5 902-2 #### LINDA Beckett ([id number]) [facility] ([facility]) [address] [place] [address] 50429 Sodium (BldA) [Moles/Vol] 128 mmol/L Low 136-145 [facility] Comment on above: Performed By: #### 5 902-2 #### LINDA Beckett ([id number]) [facility] ([facility]) [address] [place] [address] 66666 Glucose Test strip manual (B ld) [Mass/Vol]on 09-23-2023 Glucose [Mass/Vol] 141 mg/dL High 74-[address] [facility] Comment on above: Performed By: #### 5 902-2 #### LINDA Beckett ([id number]) [facility] ([facility]) [address] [place] [address] 06071 Magnesiumon 09-23-2023 Magnesium [Mass/Vol] 1.69 mg/dL Normal 1.60-2.40 [facility] Comment on above: Order Comment: Next Draw Performed By: #### 1 9123-9 #### LINDA Beckett ([id number]) [facility] ([facility]) [address] [place] [address] 73086 Magnesium [Mass/Vol] 2.30 mg/dL Normal 1.60-2.40 [facility] Comment on above: Performed By: #### 5 902-2 #### LINDA Beckett ([id number]) [facility] ([facility]) [address] [place] [address] 01246 Renal function 2000 panelon 09-23-2023 Albumin BCP dye [Mass/Vol] 3.4 g/dL Normal 3.4-5.0 [facility] Comment on above: Performed By: #### 5 902-2 #### LINDA Beckett ([id number]) [facility] ([facility]) [address] [place] [address] 45008 Anion gap [Moles/Vol] 16 mmol/L Normal 10-20 [facility] Comment on above: Performed By: #### 5 902-2 #### LINDA Beckett ([id number]) [facility] ([facility]) [address] [place] [address] 61469 Calcium [Mass/Vol] 9.3 mg/dL Normal 8.6-10.[address] [facility] Comment on above: Performed By: #### 5 902-2 #### LINDA Beckett ([id number]) [facility] ([facility]) [address] [place] [address] Chloride [Moles/Vol] 91 mmol/L Low 98-107 [facility] Comment on above: Performed By: #### 5 902-2 #### LINDA Beckett ([id number]) [facility] ([facility]) [address] [place] [address] CO2 [Moles/Vol] 30 mmol/L Normal 21-32 [facility] Comment on above: Performed By: #### 5 902-2 #### LINDA Beckett ([id number]) [facility] ([facility]) [address] [place] [address] 14380 Creatinine [Mass/Vol] 0.61 mg/dL Normal 0.50-1.05 [facility] Comment on above: Performed By: #### 5 902-2 #### LINDA Beckett ([id number]) [facility] ([facility]) [address] [place] [address] GFR/1.73 sq M.predicted MDRD (S/P/Bld) [Vol rate/Area] mL/min/{1.73_m2} Normal >60 [facility] Comment on above: Result Comment: Calc ulations of estimated GFR are performed using the 2020 CKD-EPI Study Refit equation without the race variable for the IDMS-Traceable creatinine methods. https://jasn.asnjournals.org/content/early/ASN.2020 908574 Performed By: #### 5 902-2 #### LINDA Beckett ([id number]) [facility] ([facility]) [address] [place] [address] Glucose [Mass/Vol] 113 mg/dL High 74-[address] [facility] Comment on above: Performed By: #### 5 902-2 #### LINDA Beckett ([id number]) [facility] ([facility]) [address] [place] [address] 78125 Phosphate [Mass/Vol] 4.4 mg/dL Normal 2.5-4.9 [facility] Comment on above: Result Comment: The performance characteristics of phosphorus testing in heparinized plasma have been validated by the individual laboratory site where testing is performed. Testing on heparinized plasma is not approved by the FDA; however, such approval is not necessary. Performed By: #### 5 902-2 #### LINDA Beckett ([id number]) [facility] ([facility]) [address] [place] [address] 40298 Potassium [Moles/Vol] 3.7 mmol/L Normal 3.5-5.3 [facility] Comment on above: Performed By: #### 5 902-2 #### LINDA Beckett ([id number]) [facility] ([facility]) [address] [place] [address] 05841 Sodium [Moles/Vol] 133 mmol/L Low 136-[address] [facility] Comment on above: Performed By: #### 5 902-2 #### LINDA Beckett ([id number]) [facility] ([facility]) [address] [place] [address] 58739 Urea nitrogen [Mass/Vol] 31 mg/dL High 6-23 [facility] Comment on above: Performed By: #### 5 902-2 #### LINDA Beckett ([id number]) [facility] ([facility]) [address] [place] [address] 75189 Surgical pathology studyon 0 09-23-2023 Surgical pathology study Pathology report.total SEE COMMENT Surgical Pathology Case: [id number] Authorizing Provider: Caesar Couch APRN-FIELD ASSOCIATE Collected: 09/23/2023 1131 Ordering Location: [facility] Received: 09/23/2023 [facility] [place] Pathologist: Alexa Lopez MD PhD Specimen: ILEUM SEGMENTAL RESECTION, ileal mass and cecum Path report.final diagnosis SEE COMMENT A. ILEUM SEGMENTAL RESECTION: -Small bowel with stricture, post-stricture dilatation, area of chronic enteritis, marked adhesions and acute serositis, see note -Colonic and appendiceal mucosa, no significant pathologic findings -Three lymph nodes, no significant pathologic findings Note: The area of chronic enteritis shows thickened muscularis mucosae and pyloric gland metaplasia. Granuloma or dysplasia is not identified. Laboratory comment By the signature on this report, the individual or group listed as making the Final Interpretation/Diagnosi s certifies that they have reviewed this case. Path report.relevant Hx SEE COMMENT Pre-op diagnosis: SBO (small bowel obstruction) (Multi) [K56.609] Path report.gross observation SEE COMMENT A. Received in formalin, labeled with the patient's name and hospital number and ileal mass and cecum, are 2 segments of intestine measuring approximately 60 cm and 8.5 cm, respectively. There is attached mesentery and fibrofatty tissue. The serosa of the longer segment shows severe adhesions. An appendix is identified within the adhesions measuring 4.5 cm and 0.5 cm in diameter. An ileocecal valve is present and is 1.5 cm to a stapled margin and this margin appears to be a colonic margin. The ileocecal valve is 58 cm to the other stapled margin and this part appears to be the small bowel. Located 9 - 38 cm to the ileocecal valve, the intestinal segment is severely adhesed, twisted, and shows rough brown-black serosal surface with white/dupont exudate and areas of strictures. The most proximal 23 cm of the the longer segment shows dilatation adjacent to a stricture measuring up to 4.0 cm in diameter. The shorter segment shows a diameter of 1.9 cm and is unremarkable. Sectioning of the mesentery and fibrofatty tissue reveals no thrombus. Sectioning also reveals multiple possible lymph nodes measuring 0.3 cm to 1.3 cm. Photographs have been taken. Voice Studies Director sections are submitted in 12 cassettes. [facility] Summary of Cassettes: Specimen Label Site A 1 possible proximal resection margin 2 appendix, base, and distal tip 3 possible distal resection margin, closer to the ileocecal valve 4 ileocecal valve 5-6 adhesed small intestines 7-9 strictured areas 10 dilated intestine 11 medical sales representative section of the shorter segment 12 lymph nodes Normal [facility] Comment on above: Order Comment: Pre-o p diagnosis:SBO (small bowel obstruction) (Multi) [K56.609] VERAB/VERIFY ABORHon 024 ABO group Nom (Bld) O Normal [facility] Comment on above: Order Comment: Thi s is for confirming/verifying history of ABORh on file for transfusion of blood products. If this is not for transfusion, please order an ABO/RH [[id number]]. If you have any questions or unsure what to order, please call the blood bank. Performed By: #### 5 902-2 #### LINDA Beckett ([id number]) [facility] ([facility]) [address] [place] [address] 85035 D Ag Ql (Bld) Negative Normal [facility] Comment on above: Order Comment: Thi s is for confirming/verifying history of ABORh on file for transfusion of blood products. If this is not for transfusion, please order an ABO/RH [[id number]]. If you have any questions or unsure what to order, please call the blood bank. Performed By: #### 5 902-2 #### LINDA Beckett ([id number]) [facility] ([facility]) [address] [place] [address] 59263 CBC panel Auto (Bld)on 09-21 Erythrocyte distribution width (RBC) [Ratio] 12.8 % Normal 11.5-14.5 [facility] Comment on above: Performed By: #### 5 902-2 #### LINDA KUMARI L ([id number]) [facility] ([facility]) [address] [place] [address] 38638 Hematocrit (Bld) [Volume fraction] 38.0 % Normal 36.0-46.0 [facility] Comment on above: Performed By: #### 5 902-2 #### LINDA KUMARI L ([id number]) [facility] ([facility]) [address] [place] [address] 05312 Hemoglobin (Bld) [Mass/Vol] 12.6 g/dL Normal 12.0-16.0 [facility] Comment on above: Performed By: #### 5 902-2 #### LINDA Beckett ([id number]) [facility] ([facility]) [address] [place] [address] 54696 MCH (RBC) [Entitic mass] 32.3 pg Normal 26.0-34.0 [facility] Comment on above: Performed By: #### 5 902-2 #### LINDA Beckett ([id number]) [facility] ([facility]) [address] [place] [address] 26650 MCHC (RBC) [Mass/Vol] 33.2 g/dL Normal 32.0-36.0 [facility] Comment on above: Performed By: #### 5 902-2 #### LINDA Beckett ([id number]) [facility] ([facility]) [address] [place] [address] 78517 MCV (RBC) [Entitic vol] 97 fL Normal 80-100 [facility] Comment on above: Performed By: #### 5 902-2 #### LINDA Beckett ([id number]) [facility] ([facility]) [address] [place] [address] 78663 Nucleated RBC/100 WBC (Bld) [Ratio] 2.2 /100 WBCs High 0.0-0.0 [facility] Comment on above: Performed By: #### 5 902-2 #### LINDA Beckett ([id number]) [facility] ([facility]) [address] [place] [address] 74486 Platelets (Bld) [#/Vol] 229 x10*3/uL Normal 150-450 [facility] Comment on above: Performed By: #### 5 902-2 #### LINDA Beckett ([id number]) [facility] ([facility]) [address] [place] [address] 90111 RBC (Bld) [#/Vol] 3.90 x10*6/uL Low 4.00-5.20 [facility] Comment on above: Performed By: #### 5 902-2 #### LINDA Beckett ([id number]) [facility] ([facility]) [address] [place] [address] 38886 WBC (Bld) [#/Vol] 8.1 x10*3/uL Normal 4.4-11.3 [facility] Comment on above: Performed By: #### 5 902-2 #### LINDA Beckett ([id number]) [facility] ([facility]) [address] [place] [address] 86643 Glucose Test strip manual (B ld) [Mass/Vol]on 09-22-2023 Glucose [Mass/Vol] 130 mg/dL High [address] [place] [address] Comment on above: Performed By: #### 5 902-2 #### LINDA Beckett ([id number]) [facility] ([facility]) [address] [place] [address] 24241 Glucose [Mass/Vol] 124 mg/dL High [address] [place] [address] Comment on above: Performed By: #### 5 902-2 #### LINDA Beckett ([id number]) [facility] ([facility]) [address] [place] [address] 80059 Glucose [Mass/Vol] 130 mg/dL High [address] [place] [address] Comment on above: Performed By: #### 2 341-6 #### LINDA Beckett ([id number]) [facility] ([facility]) [address] [place] [address] 53974 Magnesiumon 09-22-2023 Magnesium [Mass/Vol] 2.23 mg/dL Normal 1.60-2.40 [facility] Comment on above: Performed By: #### 5 902-2 #### LINDA Beckett ([id number]) [facility] ([facility]) [address] [place] [address] 20686 Blood type and Indirect anti body screen panel (Bld)on 09-21-2023 ABO group Nom (Bld) O Normal [facility] Comment on above: Performed By: #### 3 4532-2 #### LINDA Beckett ([id number]) [facility] ([facility]) [address] [place] [address] Blood group antibody screen Ql Negative [facility] Comment on above: Performed By: #### 3 4532-2 #### LINDA Beckett ([id number]) [facility] ([facility]) [address] [place] [address] D Ag Ql (Bld) Negative [facility] Comment on above: Performed By: #### 3 4532-2 #### LINDA Beckett ([id number]) [facility] ([facility]) [address] [place] [address] CBC W Auto Differential pane l (Bld)on 09-21-2023 Basophils (Bld) [#/Vol] 0.05 x10*3/uL Normal 0.00-0.10 [facility] Comment on above: Performed By: #### 5 7021-8 #### LINDA Beckett ([id number]) [facility] ([facility]) [address] [place] [address] Basophils/100 WBC (Bld) 0.5 % Normal 0.0-2.0 [facility] Comment on above: Performed By: #### 5 7021-8 #### LINDA Beckett ([id number]) [facility] ([facility]) [address] [place] [address] Eosinophils (Bld) [#/Vol] 0.15 x10*3/uL Normal 0.00-0.70 [facility] Comment on above: Performed By: #### 5 7021-8 #### LINDA Beckett ([id number]) [facility] ([facility]) [address] [place] [address] Eosinophils/100 WBC (Bld) 1.5 % Normal 0.0-6.0 [facility] Comment on above: Performed By: #### 5 7021-8 #### LINDA Beckett ([id number]) [facility] ([facility]) [address] [place] [address] 05028 Erythrocyte distribution width (RBC) [Ratio] 12.6 % Normal 11.5-14.5 [facility] Comment on above: Performed By: #### 5 7021-8 #### LINDA Beckett ([id number]) [facility] ([facility]) [address] [place] [address] 27231 Hematocrit (Bld) [Volume fraction] 38.7 % Normal 36.0-46.0 [facility] Comment on above: Performed By: #### 5 7021-8 #### LINDA Beckett ([id number]) [facility] ([facility]) [address] [place] [address] 54975 Hemoglobin (Bld) [Mass/Vol] 13.2 g/dL Normal 12.0-16.0 [facility] Comment on above: Performed By: #### 5 7021-8 #### LINDA Beckett ([id number]) [facility] ([facility]) [address] [place] [address] 06622 Immature granulocytes (Bld) [#/Vol] 0.07 x10*3/uL Normal 0.00-0.70 [facility] Comment on above: Performed By: #### 5 7021-8 #### LINDA Beckett ([id number]) [facility] ([facility]) [address] [place] [address] 99481 Immature granulocytes/100 WBC (Bld) 0.7 % Normal 0.0-0.9 [facility] Comment on above: Result Comment: Ayala ture Granulocyte Count (IG) includes promyelocytes, myelocytes and metamyelocytes but does not include bands. Percent differential counts (%) should be interpreted in the context of the absolute cell counts (cells/UL). Performed By: #### 5 7021-8 #### LINDA Beckett ([id number]) [facility] ([facility]) [address] [place] [address] 01754 Lymphocytes (Bld) [#/Vol] 2.26 x10*3/uL Normal 1.20-4.80 [facility] Comment on above: Performed By: #### 5 7021-8 #### LINDA Beckett ([id number]) [facility] ([facility]) [address] [place] [address] 58311 Lymphocytes/100 WBC (Bld) 22.4 % Normal 13.0-44.0 [facility] Comment on above: Performed By: #### 5 7021-8 #### LINDA Beckett ([id number]) [facility] ([facility]) [address] [place] [address] 76487 MCH (RBC) [Entitic mass] 31.4 pg Normal 26.0-34.0 [facility] Comment on above: Performed By: #### 5 7021-8 #### LINDA Beckett ([id number]) [facility] ([facility]) [address] [place] [address] 78330 MCHC (RBC) [Mass/Vol] 34.1 g/dL Normal 32.0-36.0 [facility] Comment on above: Performed By: #### 5 7021-8 #### LINDA Beckett ([id number]) [facility] ([facility]) [address] [place] [address] 88383 MCV (RBC) [Entitic vol] 92 fL Normal 80-100 [facility] Comment on above: Performed By: #### 5 7021-8 #### LINDA Beckett ([id number]) [facility] ([facility]) [address] [place] [address] 73076 Monocytes (Bld) [#/Vol] 0.96 x10*3/uL Normal 0.10-1.00 [facility] Comment on above: Performed By: #### 5 7021-8 #### LINDA Beckett ([id number]) [facility] ([facility]) [address] [place] [address] 90799 Monocytes/100 WBC (Bld) 9.5 % Normal 2.0-10.0 [facility] Comment on above: Performed By: #### 5 7021-8 #### LINDA Beckett ([id number]) [facility] ([facility]) [address] [place] [address] Neutrophils (Bld) [#/Vol] 6.59 x10*3/uL Normal 1.20-7.70 [facility] Comment on above: Result Comment: Perc ent differential counts (%) should be interpreted in the context of the absolute cell counts (cells/uL). Performed By: #### 5 7021-8 #### LINDA Beckett ([id number]) [facility] ([facility]) [address] [place] [address] 65054 Neutrophils/100 WBC (Bld) 65.4 % Normal 40.0-80.0 [facility] Comment on above: Performed By: #### 5 7021-8 #### LINDA Beckett ([id number]) [facility] ([facility]) [address] [place] [address] 65528 Nucleated RBC/100 WBC (Bld) [Ratio] 0.0 /100 WBCs Normal 0.0-0.0 [facility] Comment on above: Performed By: #### 5 7021-8 #### LINDA Beckett ([id number]) [facility] ([facility]) [address] [place] [address] 47011 Platelets (Bld) [#/Vol] 274 x10*3/uL Normal 150-450 [facility] Comment on above: Performed By: #### 5 7021-8 #### LINDA Beckett ([id number]) [facility] ([facility]) [address] [place] [address] 96611 RBC (Bld) [#/Vol] 4.21 x10*6/uL Normal 4.00-5.20 [facility] Comment on above: Performed By: #### 5 7021-8 #### LINDA Beckett ([id number]) [facility] ([facility]) [address] [place] [address] 67234 WBC (Bld) [#/Vol] 10.1 x10*3/uL Normal 4.4-11.3 [facility] Comment on above: Performed By: #### 5 7021-8 #### LINDA Beckett ([id number]) [facility] ([facility]) [address] [place] [address] 22892 Coagulation tissue factor in ducedon 09-21-2023 PT Coag (PPP) [Time] 11.9 s Normal 9.8-12.8 [facility] Comment on above: Performed By: #### 5 902-2 #### LINDA Beckett ([id number]) [facility] ([facility]) [address] [place] [address] 31141 Comprehensive metabolic 2000 panelon 09-21-2023 Albumin BCP dye [Mass/Vol] 3.6 g/dL Normal 3.4-5.0 [facility] Comment on above: Performed By: #### 2 4323-8 #### LINDA Beckett ([id number]) [facility] ([facility]) [address] [place] [address] 88463 ALP [Catalytic activity/Vol] 83 U/L Normal 33-136 [facility] Comment on above: Performed By: #### 2 4323-8 #### LINDA Beckett ([id number]) [facility] ([facility]) [address] [place] [address] 17808 ALT With P-5'-P [Catalytic activity/Vol] 7 U/L Normal 7-45 [facility] Comment on above: Result Comment: Kathy ents treated with Sulfasalazine may generate falsely decreased results for ALT. Performed By: #### 2 4323-8 #### LINDA Beckett ([id number]) [facility] ([facility]) [address] [place] [address] Anion gap [Moles/Vol] 15 mmol/L Normal 10-20 [facility] Comment on above: Performed By: #### 2 4323-8 #### LINDA Beckett ([id number]) [facility] ([facility]) [address] [place] [address] 19981 AST With P-5'-P [Catalytic activity/Vol] 16 U/L Normal 9-39 [facility] Comment on above: Performed By: #### 2 4323-8 #### LINDA Beckett ([id number]) [facility] ([facility]) [address] [place] [address] Bilirubin [Mass/Vol] 0.2 mg/dL Normal 0.0-1.2 [facility] Comment on above: Performed By: #### 2 4323-8 #### LINDA Beckett ([id number]) [facility] ([facility]) [address] [place] [address] 45129 Calcium [Mass/Vol] 9.4 mg/dL Normal 8.6-10.[address] [facility] Comment on above: Performed By: #### 2 4323-8 #### LINDA Beckett ([id number]) [facility] ([facility]) [address] [place] [address] 65336 Chloride [Moles/Vol] 98 mmol/L Normal 98-107 [facility] Comment on above: Performed By: #### 2 4323-8 #### LINDA Beckett ([id number]) [facility] ([facility]) [address] [place] [address] CO2 [Moles/Vol] 23 mmol/L Normal 21-32 [facility] Comment on above: Performed By: #### 2 4323-8 #### LINDA Beckett ([id number]) [facility] ([facility]) [address] [place] [address] 00859 Creatinine [Mass/Vol] 0.48 mg/dL Low 0.50-1.05 [facility] Comment on above: Performed By: #### 2 4323-8 #### LINDA KUMARI L ([id number]) [facility] ([facility]) [address] [place] [address] 85139 GFR/1.73 sq M.predicted MDRD (S/P/Bld) [Vol rate/Area] mL/min/{1.73_m2} Normal >60 [facility] Comment on above: Result Comment: Calc ulations of estimated GFR are performed using the 2020 CKD-EPI Study Refit equation without the race variable for the IDMS-Traceable creatinine methods. https://jasn.asnjournals.org/content//ASN.2020 726675 Performed By: #### 2 4323-8 #### LINDA Beckett ([id number]) [facility] ([facility]) [address] [place] [address] Glucose [Mass/Vol] 121 mg/dL High 74-[address] [facility] Comment on above: Performed By: #### 2 4323-8 #### LINDA Beckett ([id number]) [facility] ([facility]) [address] [place] [address] 45663 Potassium [Moles/Vol] 3.7 mmol/L Normal 3.5-5.3 [facility] Comment on above: Performed By: #### 2 4323-8 #### LINDA Beckett ([id number]) [facility] ([facility]) [address] [place] [address] 73507 Protein [Mass/Vol] 6.8 g/dL Normal 6.4-8.[address] [facility] Comment on above: Performed By: #### 2 4323-8 #### LINDA KUMARI L ([id number]) [facility] ([facility]) [address] [place] [address] Sodium [Moles/Vol] 132 mmol/L Low 136-[address] [facility] Comment on above: Performed By: #### 2 4323-8 #### LINDA MCDANIELMOJANNA L ([id number]) [facility] ([facility]) [address] [place] [address] Urea nitrogen [Mass/Vol] 34 mg/dL High 6-23 [facility] Comment on above: Performed By: #### 2 4323-8 #### LINDA KUMARI L ([id number]) [facility] ([facility]) [address] [place] [address] Glucose Test strip manual (B ld) [Mass/Vol]on 09-21-2023 Glucose [Mass/Vol] 77 mg/dL Normal 74-[address] [facility] Comment on above: Performed By: #### 2 341-6 #### LINDA Beckett ([id number]) [facility] ([facility]) [address] [place] [address] Glucose [Mass/Vol] 128 mg/dL High 74-[address] [facility] Comment on above: Performed By: #### 2 341-6 #### LINDA Beckett ([id number]) [facility] ([facility]) [address] [place] [address] Glucose [Mass/Vol] 132 mg/dL High 74-[address] [facility] Comment on above: Performed By: #### 2 341-6 #### LINDA Beckett ([id number]) [facility] ([facility]) [address] [place] [address] 79898 Magnesiumon 09-21-2023 Magnesium [Mass/Vol] 2.31 mg/dL Normal 1.60-2.40 [facility] Comment on above: Result Comment: MILD LIPEMIA DETECTED. The result may be falsely elevated due to lipemia or other interferents. Clinical correlation is recommended. Repeat testing may be considered. Performed By: #### 1 9123-9 #### LINDA Beckett ([id number]) [facility] ([facility]) [address] [place] [address] 87348 PICC >5 YR BEDSIDE IMAGINGon 09-21-2023 PICC >5 YR BEDSIDE IMAGING These images are not reportable by radiology and will not be interpreted by Radiologists. Normal [facility] PT Coag (PPP) [Time]on 09-20 INR Coag (PPP) [Relative time] 1.1 Normal 0.9-1.1 [facility] Comment on above: Performed By: #### 5 902-2 #### LINDA Beckett ([id number]) [facility] ([facility]) [address] [place] [address] 44995 CBC panel Auto (Bld)on 09-19 Erythrocyte distribution width (RBC) [Ratio] 12.5 % 11.5 - 14.5 % [facility] Hematocrit (Bld) [Volume fraction] 38.4 % 36.0 - 46.0 % [facility] Hemoglobin (Bld) [Mass/Vol] 12.7 g/dL 12.0 - 16.0 g/dL [facility] Interpretation and review of laboratory results Normal [facility] MCH (RBC) [Entitic mass] 30.9 pg 26.0 - 34.0 pg [facility] MCHC (RBC) [Mass/Vol] 33.1 g/dL 32.0 - 36.0 g/dL [facility] MCV (RBC) [Entitic vol] 93 fL 80 - 100 fL [facility] Nucleated RBC/100 WBC (Bld) [Ratio] 0.0 % [facility] Platelets (Bld) [#/Vol] 269 10*3/uL [facility] RBC (Bld) [#/Vol] 4.11 10*6/uL [facility] WBC (Bld) [#/Vol] 8.8 10*3/uL [facility] Erythrocyte distribution width (RBC) [Ratio] 12.5 % Normal 11.5-14.5 [facility] Comment on above: Performed By: #### 5 7021-8 #### ANANYA CLEMENTS ([id number]) [facility] ([facility]) [address] [place] [address] 45638 Hematocrit (Bld) [Volume fraction] 38.4 % Normal 36.0-46.0 [facility] Comment on above: Performed By: #### 5 7021-8 #### ANANYA CLEMENTS ([id number]) [facility] ([facility]) [address] [place] [address] 81577 Hemoglobin (Bld) [Mass/Vol] 12.7 g/dL Normal 12.0-16.0 [facility] Comment on above: Performed By: #### 5 7021-8 #### ANANYA CLEMENTS ([id number]) [facility] ([facility]) [address] [place] [address] 74544 MCH (RBC) [Entitic mass] 30.9 pg Normal 26.0-34.0 [facility] Comment on above: Performed By: #### 5 7021-8 #### ANANYA CLEMENTS ([id number]) [facility] ([facility]) [address] [place] [address] 89064 MCHC (RBC) [Mass/Vol] 33.1 g/dL Normal 32.0-36.0 [facility] Comment on above: Performed By: #### 5 7021-8 #### ANANYA CLEMENTS ([id number]) [facility] ([facility]) [address] [place], [place] [address] MCV (RBC) [Entitic vol] 93 fL Normal 80-100 [facility] Comment on above: Performed By: #### 5 7021-8 #### ANANYA CLEMENTS ([id number]) [facility] ([facility]) [address] [place], [place] [address] Nucleated RBC/100 WBC (Bld) [Ratio] 0.0 /100 WBCs Normal 0.0-0.0 [facility] Comment on above: Performed By: #### 5 7021-8 #### ANANYA CLEMENTS ([id number]) [facility] ([facility]) [address] [place] [address] 06205 Platelets (Bld) [#/Vol] 269 x10*3/uL Normal 150-450 [facility] Comment on above: Performed By: #### 5 7021-8 #### ANANYA CLEMENTS ([id number]) [facility] ([facility]) [address] [place] [address] 10581 RBC (Bld) [#/Vol] 4.11 x10*6/uL Normal 4.00-5.20 [facility] Comment on above: Performed By: #### 5 7021-8 #### ANANYA CLEMENTS ([id number]) [facility] ([facility]) [address] [place] [address] 56396 WBC (Bld) [#/Vol] 8.8 x10*3/uL Normal 4.4-11.3 [facility] Comment on above: Performed By: #### 5 7021-8 #### HARE STARR ([id number]) [facility] ([facility]) [address] [place] [address] Comprehensive metabolic 2000 panelon 09-20-2023 Albumin BCP dye [Mass/Vol] 3.7 g/dL 3.4 - 5.0 g/dL [facility] ALP [Catalytic activity/Vol] 81 U/L 33 - 136 U/L [facility] ALT With P-5'-P [Catalytic activity/Vol] 8 U/L 7 - 45 U/L [facility] Comment on above: Patients treated wit h Sulfasalazine may generate falsely decreased results for ALT. Anion gap [Moles/Vol] 14 mmol/L 10 - 2 0 mmol/L [facility] AST With P-5'-P [Catalytic activity/Vol] 13 U/L 9 - 39 U/L [facility] Bilirubin [Mass/Vol] 0.2 mg/dL 0.0 - 1 .2 mg/dL [facility] Calcium [Mass/Vol] 9.2 mg/dL 8.6 - 10. 3 mg/dL [facility] Chloride [Moles/Vol] 106 mmol/L 98 - 10 7 mmol/L [facility] CO2 [Moles/Vol] 23 mmol/L 21 - 32 mmol/L [facility] Creatinine [Mass/Vol] 0.55 mg/dL 0.50 - 1.05 mg/dL [facility] eGFR - PINF [facility] Comment on above: Calculations of manjula mated GFR are performed using the 2020 CKD-EPI Study Refit equation without the race variable for the IDMS-Traceable creatinine methods. https://jasn.asnjournals.org/content//ASN.2020 365701 Glucose [Mass/Vol] 160 mg/dL High 74 - 99 mg/dL [facility] Interpretation and review of laboratory results Abnormal [facility] Potassium [Moles/Vol] 3.7 mmol/L 3.5 - 5.3 mmol/L [facility] Protein [Mass/Vol] 6.5 g/dL 6.4 - 8.2 g/dL [facility] Sodium [Moles/Vol] 139 mmol/L 136 - 145 mmol/L [facility] Urea nitrogen [Mass/Vol] 34 mg/dL High 6 - 23 mg/dL [facility] Albumin BCP dye [Mass/Vol] 3.7 g/dL Normal 3.4-5.0 [facility] Comment on above: Order Comment: For C ontinued TPN Performed By: #### 5 7021-8 #### ANANYA CLEMENTS ([id number]) [facility] ([facility]) [address] [place] [address] ALP [Catalytic activity/Vol] 81 U/L Normal 33-136 [facility] Comment on above: Order Comment: For C ontinued TPN Performed By: #### 5 7021-8 #### ANANYA CLEMENTS ([id number]) [facility] ([facility]) [address] [place] [address]1994 ALT With P-5'-P [Catalytic activity/Vol] 8 U/L Normal 7-45 [facility] Comment on above: Order Comment: For C ontinued TPN Result Comment: Kathy ents treated with Sulfasalazine may generate falsely decreased results for ALT. Performed By: #### 5 7021-8 #### ANANYA CLEMENTS ([id number]) [facility] ([facility]) [address] [place] [address]1453 Anion gap [Moles/Vol] 14 mmol/L Normal 10-20 [facility] Comment on above: Order Comment: For C ontinued TPN Performed By: #### 5 7021-8 #### ANANYA CLEMENTS ([id number]) [facility] ([facility]) [address] [place] [address]23 AST With P-5'-P [Catalytic activity/Vol] 13 U/L Normal 9-39 [facility] Comment on above: Order Comment: For C ontinued TPN Performed By: #### 5 7021-8 #### ANANYA CLEMENTS ([id number]) [facility] ([facility]) [address] [place] [address] Bilirubin [Mass/Vol] 0.2 mg/dL Normal 0.0-1.2 [facility] Comment on above: Order Comment: For C ontinued TPN Performed By: #### 5 7021-8 #### ANANYA CLEMENTS ([id number]) [facility] ([facility]) [facility] [place] [address] Calcium [Mass/Vol] 9.2 mg/dL Normal 8.6-10.3 [facility] Comment on above: Order Comment: For C ontinued TPN Performed By: #### 5 7021-8 #### ANANYA CLEMENTS ([id number]) [facility] ([facility]) [address] [place] [address] 79165 Chloride [Moles/Vol] 106 mmol/L Normal 98-107 [facility] Comment on above: Order Comment: For C ontinued TPN Performed By: #### 5 7021-8 #### ANANYA CLEMENTS ([id number]) [facility] ([facility]) [address] [place] [address]208 CO2 [Moles/Vol] 23 mmol/L Normal 21-32 [facility] Comment on above: Order Comment: For C ontinued TPN Performed By: #### 5 7021-8 #### ANANYA CLEMENTS ([id number]) [facility] ([facility]) [address] [place] [address]23 Creatinine [Mass/Vol] 0.55 mg/dL Normal 0.50-1.05 [facility] Comment on above: Order Comment: For C ontinued TPN Performed By: #### 5 7021-8 #### ANANYA CLEMENTS ([id number]) [facility] ([facility]) [address] [place] [address] GFR/1.73 sq M.predicted MDRD (S/P/Bld) [Vol rate/Area] mL/min/{1.73_m2} Normal >60 [facility] Comment on above: Order Comment: For C ontinued TPN Result Comment: Calc ulations of estimated GFR are performed using the 2020 CKD-EPI Study Refit equation without the race variable for the IDMS-Traceable creatinine methods. https://jasn.asnjournals.org/content/early/ASN.2020 713856 Performed By: #### 5 7021-8 #### ANANYA CLEMENTS ([id number]) [facility] ([facility]) [address] [place] [address] 37018 Glucose [Mass/Vol] 160 mg/dL High 74-99 [facility] Comment on above: Order Comment: For C ontinued TPN Performed By: #### 5 7021-8 #### ANANYA CLEMENTS ([id number]) [facility] ([facility]) [address] [place] [address] 11094 Potassium [Moles/Vol] 3.7 mmol/L Normal 3.5-5.3 [facility] Comment on above: Order Comment: For C ontinued TPN Performed By: #### 5 7021-8 #### ANANYA CLEMENTS ([id number]) [facility] ([facility]) [address] [place] [address] 22820 Protein [Mass/Vol] 6.5 g/dL Normal 6.4-8.2 [facility] Comment on above: Order Comment: For C ontinued TPN Performed By: #### 5 7021-8 #### ANANYA CLEMENTS ([id number]) [facility] ([facility]) [address] [place] [address] 28356 Sodium [Moles/Vol] 139 mmol/L Normal 136-145 [facility] Comment on above: Order Comment: For C ontinued TPN Performed By: #### 5 7021-8 #### ANANYA CLEMENTS ([id number]) [facility] ([facility]) [address] [place] [address] 00143 Urea nitrogen [Mass/Vol] 34 mg/dL High 6-23 [facility] Comment on above: Order Comment: For C ontinued TPN Performed By: #### 5 7021-8 #### ANANYA CLEMENTS ([id number]) [facility] ([facility]) [address] [place] [address] 08450 Glucose Test strip manual (B ld) [Mass/Vol]on 09-20-2023 Glucose [Mass/Vol] 134 mg/dL High 74 - 99 mg/dL [facility] Interpretation and review of laboratory results Abnormal [facility] Glucose [Mass/Vol] 134 mg/dL High 74-99 [facility] Comment on above: Performed By: #### 2 524-7 #### ANANYA CLEMENTS ([id number]) [facility] ([facility]) [address] [place] [address] 78844 Glucose [Mass/Vol] 129 mg/dL High 74 - 99 mg/dL [facility] Interpretation and review of laboratory results Abnormal [facility] Glucose [Mass/Vol] 129 mg/dL High 74-99 [facility] Comment on above: Performed By: #### 5 7021-8 #### ANANYA CLEMENTS ([id number]) [facility] ([facility]) [address] [place] [address] 00601 Glucose [Mass/Vol] 144 mg/dL High 74 - 99 mg/dL [facility] Interpretation and review of laboratory results Abnormal [facility] Glucose [Mass/Vol] 144 mg/dL High 74-99 [facility] Comment on above: Performed By: #### 5 7021-8 #### ANANYA CLEMENTS ([id number]) [facility] ([facility]) [address] [place] [address] 66680 Glucose [Mass/Vol] 154 mg/dL High 74 - 99 mg/dL [facility] Interpretation and review of laboratory results Abnormal [facility] Glucose [Mass/Vol] 154 mg/dL High 74-99 [facility] Comment on above: Performed By: #### 5 7021-8 #### ANANYA CLEMENTS ([id number]) [facility] ([facility]) [address] [place] [address] 07473 Lavender Topon 09-20-2023 Extra Tube Hold for add-ons. [facility] Comment on above: Auto resulted. [facility] Magnesiumon 09-20-2023 Magnesium [Mass/Vol] 2.30 mg/dL 1.60 - 2.40 mg/dL [facility] Comment on above: MILD LIPEMIA DETECTE D. The result may be falsely elevated due to lipemia or other interferents. Clinical correlation is recommended. Repeat testing may be considered. Magnesium [Mass/Vol] 2.30 mg/dL Normal 1.60-2.40 [facility] Comment on above: Order Comment: For C ontinued TPN Result Comment: MILD LIPEMIA DETECTED. The result may be falsely elevated due to lipemia or other interferents. Clinical correlation is recommended. Repeat testing may be considered. Performed By: #### 5 7021-8 #### ANANYA CLEMENTS ([id number]) [facility] ([facility]) [address] [place] [address] No Panel Informationon 09-19 Interpretation and review of laboratory results Normal [facility] Phosphateon 09-20-2023 Phosphate [Mass/Vol] 3.8 mg/dL Normal 2.5-4.9 [facility] Comment on above: Order Comment: For C ontinued TPN Result Comment: The performance characteristics of phosphorus testing in heparinized plasma have been validated by the individual laboratory site where testing is performed. Testing on heparinized plasma is not approved by the FDA; however, such approval is not necessary. Performed By: #### 5 7021-8 #### ANANYA CLEMENTS ([id number]) [facility] ([facility]) [facility] [place] [address] Phosphoruson 09-20-2023 Phosphate [Mass/Vol] 3.8 mg/dL 2.5 - 4 .9 mg/dL [facility] Comment on above: The performance donnell acteristics of phosphorus testing in heparinized plasma have been validated by the individual laboratory site where testing is performed. Testing on heparinized plasma is not approved by the FDA; however, such approval is not necessary. XR ABDOMEN 2 VIEWS SUPINE AN D ERECT OR DECUBon 09-20-2023 XR ABDOMEN 2 VIEWS SUPINE AND ERECT OR DECUB Interpreted By: Roberto Sellers, STUDY: XR ABDOMEN 2 VIEWS SUPINE AND ERECT OR DECUB; 09/20/2023 12:29 pm INDICATION: Signs/Symptoms:f/u SBO. COMPARISON: None. ACCESSION NUMBER(S): [id number] ORDERING CLINICIAN: LAEXUS MALIK TECHNIQUE: Abdomen supine and upright views Chest PA view FINDINGS: ABDOMEN supine, upright and left lateral decubitus views The nasogastric tube is present with its tip in the stomach. The stomach is not distended. The small bowel loops still contain a large amount of Gastrografin given yesterday, which has remained practically unchanged from 24 hours ago. The size of the small bowel loops is unchanged, measuring 6.6 cm. A small amount of contrast has entered the cecum. CHEST: AP upright Cardiomediastinal silhouette in normal in size and configuration. A nasogastric tube is present coiled in the stomach. The lungs remain clear. No pleural effusion or infiltrate. No widening of the mediastinum. IMPRESSION: 1. Continuing small bowel obstruction. Moderate to severely dilated small bowel loops diffusely, filled with Gastrografin from the small-bowel examination done yesterday. No change in caliber of small bowel diameter. 2. No free air. 3. Nasogastric tube present with its tip in the stomach. 4. Chest clear. MACRO: None Signed by: Roberto Sellers 09/20/2023 1:24 PM Dictation workstation: [id number] [facility] XR Abdomen Supine and Latera l-decubituson 09-20-2023 1. Continuing small bowel obstruction. Moderate to severely dilated small bowel loops diffusely, filled with Gastrografin from the small-bowel examination done yesterday. No change in caliber of small bowel diameter. 2. No free air. 3. Nasogastric tube present with its tip in the stomach. 4. Chest clear. MACRO: None Signed by: Roberto Sellers 09/20/2023 1:24 PM Dictation workstation: [id number] [facility] MMODAL Interpreted By: Roberto Sellers, STUDY: XR ABDOMEN 2 VIEWS SUPINE AND ERECT OR DECUB; 09/20/2023 12:29 pm INDICATION: Signs/Symptoms:f/u SBO. COMPARISON: None. ACCESSION NUMBER(S): [id number] ORDERING CLINICIAN: ALEXUS MALIK TECHNIQUE: Abdomen supine and upright views Chest PA view FINDINGS: ABDOMEN supine, upright and left lateral decubitus views The nasogastric tube is present with its tip in the stomach. The stomach is not distended. The small bowel loops still contain a large amount of Gastrografin given yesterday, which has remained practically unchanged from 24 hours ago. The size of the small bowel loops is unchanged, measuring 6.6 cm. A small amount of contrast has entered the cecum. CHEST: AP upright Cardiomediastinal silhouette in normal in size and configuration. A nasogastric tube is present coiled in the stomach. The lungs remain clear. No pleural effusion or infiltrate. No widening of the mediastinum. MMODAL Roberto Sellers MD - 09/20/2023 Interpreted By: Roberto Sellers, STUDY: XR ABDOMEN 2 VIEWS SUPINE AND ERECT OR DECUB; 09/20/2023 12:29 pm INDICATION: Signs/Symptoms:f/u SBO. COMPARISON: None. ACCESSION NUMBER(S): [id number] ORDERING CLINICIAN: ALEXUS MALIK TECHNIQUE: Abdomen supine and upright views Chest PA view FINDINGS: ABDOMEN supine, upright and left lateral decubitus views The nasogastric tube is present with its tip in the stomach. The stomach is not distended. The small bowel loops still contain a large amount of Gastrografin given yesterday, which has remained practically unchanged from 24 hours ago. The size of the small bowel loops is unchanged, measuring 6.6 cm. A small amount of contrast has entered the cecum. CHEST: AP upright Cardiomediastinal silhouette in normal in size and configuration. A nasogastric tube is present coiled in the stomach. The lungs remain clear. No pleural effusion or infiltrate. No widening of the mediastinum. IMPRESSION: 1. Continuing small bowel obstruction. Moderate to severely dilated small bowel loops diffusely, filled with Gastrografin from the small-bowel examination done yesterday. No change in caliber of small bowel diameter. 2. No free air. 3. Nasogastric tube present with its tip in the stomach. 4. Chest clear. MACRO: None Signed by: Roberto Sellers 09/20/2023 1:24 PM Dictation workstation: [id number] [facility] Work Phone: [facility] Work Phone: Radiology Study observation (narrative) [facility] Work Phone: Comprehensive metabolic 2000 panelon 09-19-2023 Albumin BCP dye [Mass/Vol] 3.3 g/dL Low 3.4 - 5.0 g/dL [facility] ALP [Catalytic activity/Vol] 70 U/L 33 - 136 U/L [facility] ALT With P-5'-P [Catalytic activity/Vol] 7 U/L 7 - 45 U/L [facility] Comment on above: Patients treated wit h Sulfasalazine may generate falsely decreased results for ALT. Anion gap [Moles/Vol] 10 mmol/L 10 - 2 0 mmol/L [facility] AST With P-5'-P [Catalytic activity/Vol] 11 U/L 9 - 39 U/L [facility] Bilirubin [Mass/Vol] 0.4 mg/dL 0.0 - 1 .2 mg/dL [facility] Calcium [Mass/Vol] 8.5 mg/dL Low 8.6 - 10. 3 mg/dL [facility] Chloride [Moles/Vol] 109 mmol/L High 98 - 10 7 mmol/L [facility] CO2 [Moles/Vol] 21 mmol/L 21 - 32 mmol/L [facility] Creatinine [Mass/Vol] 0.49 mg/dL Low 0.50 - 1.05 mg/dL [facility] eGFR - PINF [facility] Comment on above: Calculations of manjula mated GFR are performed using the 2020 CKD-EPI Study Refit equation without the race variable for the IDMS-Traceable creatinine methods. https://jasn.asnjournals.org/content//ASN.2020 816563 Glucose [Mass/Vol] 192 mg/dL High 74 - 99 mg/dL [facility] Potassium [Moles/Vol] 4.0 mmol/L 3.5 - 5.3 mmol/L [facility] Protein [Mass/Vol] 5.7 g/dL Low 6.4 - 8.2 g/dL [facility] Sodium [Moles/Vol] 136 mmol/L 136 - 145 mmol/L [facility] Urea nitrogen [Mass/Vol] 28 mg/dL High 6 - 23 mg/dL [facility] Albumin BCP dye [Mass/Vol] 3.3 g/dL Low 3.4-5.0 [facility] Comment on above: Order Comment: For C ontinued TPN Performed By: #### N GSHPYL #### BENNY SADRI ([id number]) [facility]) [address] [place] [address] ALP [Catalytic activity/Vol] 70 U/L Normal 33-136 [facility] Comment on above: Order Comment: For C ontinued TPN Performed By: #### N GSHPYL #### BENNY SADRI ([id number]) [facility] ([facility]) [address] [place] [address] ALT With P-5'-P [Catalytic activity/Vol] 7 U/L Normal 7-45 [facility] Comment on above: Order Comment: For C ontinued TPN Result Comment: Kathy ents treated with Sulfasalazine may generate falsely decreased results for ALT. Performed By: #### N GSHPYL #### BENNY SADRI ([id number]) [facility] ([facility]) [address] [place] [address] Anion gap [Moles/Vol] 10 mmol/L Normal 10-20 [facility] Comment on above: Order Comment: For C ontinued TPN Performed By: #### N GSHPYL #### BENNY SADRI ([id number]) [facility] ([facility]) [address] [place] [address] AST With P-5'-P [Catalytic activity/Vol] 11 U/L Normal 9-39 [facility] Comment on above: Order Comment: For C ontinued TPN Performed By: #### N GSHPYL #### BENNY SADRI ([id number]) [facility] ([facility]) [address] [place] [address] Bilirubin [Mass/Vol] 0.4 mg/dL Normal 0.0-1.2 [facility] Comment on above: Order Comment: For C ontinued TPN Performed By: #### N GSHPYL #### BENNY ZACHARYRI ([id number]) [facility] ([facility]) [address] [place] [address] Calcium [Mass/Vol] 8.5 mg/dL Low 8.6-10.3 [facility] Comment on above: Order Comment: For C ontinued TPN Performed By: #### N GSHPYL #### BENNY ZACHARYRI ([id number]) [facility] ([facility]) [address] [place] [address] Chloride [Moles/Vol] 109 mmol/L High 98-107 [facility] Comment on above: Order Comment: For C ontinued TPN Performed By: #### N GSHPYL #### BENNY SADRI ([id number]) [facility] ([facility]) [address] [place] [address] CO2 [Moles/Vol] 21 mmol/L Normal 21-32 [facility] Comment on above: Order Comment: For C ontinued TPN Performed By: #### N GSHPYL #### BENNY SADRI ([id number]) [facility] ([facility]) [address] [place] [address] Creatinine [Mass/Vol] 0.49 mg/dL Low 0.50-1.05 [facility] Comment on above: Order Comment: For C ontinued TPN Performed By: #### N GSHPYL #### BENNY SADRI ([id number]) [facility] ([facility]) [address] [place] [address] GFR/1.73 sq M.predicted MDRD (S/P/Bld) [Vol rate/Area] mL/min/{1.73_m2} Normal >60 [facility] Comment on above: Order Comment: For C ontinued TPN Result Comment: Calc ulations of estimated GFR are performed using the 2020 CKD-EPI Study Refit equation without the race variable for the IDMS-Traceable creatinine methods. https://jasn.asnjournals.org/content/early/ASN.2020 513475 Performed By: #### N GSHPYL #### BENNY ZACHARYRI ([id number]) [facility] ([facility]) [address] [place] [address] Glucose [Mass/Vol] 192 mg/dL High 74-99 [facility] Comment on above: Order Comment: For C ontinued TPN Performed By: #### N GSHPYL #### BENNY SADRI ([id number]) [facility] ([facility]) [facility] [place] [address] Potassium [Moles/Vol] 4.0 mmol/L Normal 3.5-5.3 [facility] Comment on above: Order Comment: For C ontinued TPN Performed By: #### N GSHPYL #### BENNY SADRI ([id number]) [facility] ([facility]) [address] [place] [address] Protein [Mass/Vol] 5.7 g/dL Low 6.4-8.2 [facility] Comment on above: Order Comment: For C ontinued TPN Performed By: #### N GSHPYL #### BENNY SADRI ([id number]) [facility] ([facility]) [address] [place] [address] Sodium [Moles/Vol] 136 mmol/L Normal 136-145 [facility] Comment on above: Order Comment: For C ontinued TPN Performed By: #### N GSHPYL #### BENNY SADRI ([id number]) [facility] ([facility]) [address] [place] [address] Urea nitrogen [Mass/Vol] 28 mg/dL High 6-23 [facility] Comment on above: Order Comment: For C ontinued TPN Performed By: #### N GSHPYL #### BENNY SADRI ([id number]) [facility] ([facility]) [address] [place] [address] [place] SMALL BOWEL SERIESon 08-31 [place] SMALL BOWEL SERIES Interpreted By: Roberto Sellers, STUDY: FL SMALL BOWEL SERIES; 09/19/2023 12:15 pm INDICATION: Signs/Symptoms:SBO. COMPARISON: None. ACCESSION NUMBER(S): [id number] ORDERING CLINICIAN: ALEXUS MALIK TECHNIQUE: An initial radiograph of the abdomen and pelvis was obtained. Following the oral administration of approximately 330 mL of Gastrografin multiple images were obtained following the progress of the oral contrast at 1/2 hour intervals. The injection was made through the existing nasogastric tube. Surgical clips are present overlying the lower portion of the lumbar spine. Total fluoroscopy time was 0. FINDINGS: Initial supervisor porcelain department image demonstrates a nasogastric tube in the stomach. Multiple fluid-filled loops of bowel are seen. No significant bowel air is seen. Gastrografin remains in the stomach for up to 3 hours. There is diffuse dilatation of the small bowel although contrast does reach the pelvic and right-sided ileal loops. The terminal ileum is not visualized. The right side of the colon is collapsed. The distended bowel loops measure about 6 cm in diameter. The transit time is slow. No pneumatosis intestinalis. IMPRESSION: 1. High-grade small bowel obstruction. The findings were reviewed with Dr. Posey. MACRO: None Signed by: Robreto Sellers 09/19/2023 4:17 PM Dictation workstation: [id number] [facility] Comment on above: Order Comment: Jyoti marcus use gastrograffin Glucose Test strip manual (B ld) [Mass/Vol]on 09-19-2023 Glucose [Mass/Vol] 180 mg/dL High 74 - 99 mg/dL [facility] Interpretation and review of laboratory results Abnormal [facility] Glucose [Mass/Vol] 180 mg/dL High 74-99 [facility] Comment on above: Performed By: #### 5 7021-8 #### HARE STARR ([id number]) [facility] ([facility]) [address] [place] [address] Glucose [Mass/Vol] 136 mg/dL High 74 - 99 mg/dL [facility] Interpretation and review of laboratory results Abnormal [facility] Glucose [Mass/Vol] 136 mg/dL High 74-99 [facility] Comment on above: Performed By: #### 5 7021-8 #### HARE STARR ([id number]) [facility] ([facility]) [address] [place] [address] Glucose [Mass/Vol] 153 mg/dL High 74 - 99 mg/dL [facility] Interpretation and review of laboratory results Abnormal [facility] Glucose [Mass/Vol] 153 mg/dL High 74-99 [facility] Comment on above: Performed By: #### N GSHPYL #### BENNY KHAN ([id number]) [facility] ([facility]) [address] [place] [address] Glucose [Mass/Vol] 172 mg/dL High 74 - 99 mg/dL [facility] Interpretation and review of laboratory results Abnormal [facility] Glucose [Mass/Vol] 172 mg/dL High 74-99 [facility] Comment on above: Performed By: #### N GSHPYL #### BENNY KHAN ([id number]) [facility] ([facility]) [address] [place] [address] Glucose [Mass/Vol] 182 mg/dL High 74 - 99 mg/dL [facility] Interpretation and review of laboratory results Abnormal [facility] Glucose [Mass/Vol] 182 mg/dL High 74-99 [facility] Comment on above: Performed By: #### N GSHPYL #### BENNY KHAN ([id number]) [facility] ([facility]) [address] [place] [address] 27604 Lavender Topon 09-19-2023 Extra Tube Hold for add-ons. [facility] Comment on above: Auto resulted. [facility] Magnesiumon 09-19-2023 Magnesium [Mass/Vol] 2.09 mg/dL 1.60 - 2.40 mg/dL [facility] Magnesium [Mass/Vol] 2.09 mg/dL Normal 1.60-2.40 [facility] Comment on above: Order Comment: For C ontinued TPN Performed By: #### N GSHPYL #### BENNY KHAN ([id number]) [facility] ([facility]) [address] [place] [address] Magnesium [Mass/Vol]on 09-18 Interpretation and review of laboratory results Normal [facility] No Panel Informationon 09-18 Interpretation and review of laboratory results Abnormal [facility] Phosphateon 09-19-2023 Phosphate [Mass/Vol] 2.4 mg/dL Low 2.5-4.9 [facility] Comment on above: Order Comment: For C ontinued TPN Result Comment: The performance characteristics of phosphorus testing in heparinized plasma have been validated by the individual laboratory site where testing is performed. Testing on heparinized plasma is not approved by the FDA; however, such approval is not necessary. Performed By: #### N GSHPYL #### BENNY KHAN ([id number]) [facility] ([facility]) [facility] [place] [address] Phosphoruson 09-19-2023 Phosphate [Mass/Vol] 2.4 mg/dL Low 2.5 - 4 .9 mg/dL [facility] Comment on above: The performance donnell acteristics of phosphorus testing in heparinized plasma have been validated by the individual laboratory site where testing is performed. Testing on heparinized plasma is not approved by the FDA; however, such approval is not necessary. Potassiumon 09-19-2023 Potassium [Moles/Vol] 3.9 mmol/L Normal 3.5-5.3 [facility] Comment on above: Performed By: #### N GSHPYL #### BENNY KHAN ([id number]) [facility] ([facility]) [facility] [place] [address] Potassium - 2 hours after in fusion completeon 09-19-2023 Potassium [Moles/Vol] 3.9 mmol/L 3.5 - 5.3 mmol/L [facility] Potassium [Moles/Vol]on 08-31 Interpretation and review of laboratory results [facility] RF Small bowel Views W contr ast Josefina 09-19-2023 1. High-grade small bowel obstruction. The findings were reviewed with Dr. Posey. MACRO: None Signed by: Roberto Sellers 09/19/2023 4:17 PM Dictation workstation: [id number] ABRIL MCCLURE Interpreted By: Roberto Sellers, STUDY: [place] SMALL BOWEL SERIES; 09/19/2023 12:15 pm INDICATION: Signs/Symptoms:SBO. COMPARISON: None. ACCESSION NUMBER(S): [id number] ORDERING CLINICIAN: ALEXUS MALIK TECHNIQUE: An initial radiograph of the abdomen and pelvis was obtained. Following the oral administration of approximately 330 mL of Gastrografin multiple images were obtained following the progress of the oral contrast at 1/2 hour intervals. The injection was made through the existing nasogastric tube. Surgical clips are present overlying the lower portion of the lumbar spine. Total fluoroscopy time was 0. FINDINGS: Initial supervisor porcelain department image demonstrates a nasogastric tube in the stomach. Multiple fluid-filled loops of bowel are seen. No significant bowel air is seen. Gastrografin remains in the stomach for up to 3 hours. There is diffuse dilatation of the small bowel although contrast does reach the pelvic and right-sided ileal loops. The terminal ileum is not visualized. The right side of the colon is collapsed. The distended bowel loops measure about 6 cm in diameter. The transit time is slow. No pneumatosis intestinalis. [facility] Roberto Sellers MD - 09/19/2023 Interpreted By: Roberto Sellers, STUDY: [place] SMALL BOWEL SERIES; 09/19/2023 12:15 pm INDICATION: Signs/Symptoms:SBO. COMPARISON: None. ACCESSION NUMBER(S): [id number] ORDERING CLINICIAN: ALEXUS MALIK TECHNIQUE: An initial radiograph of the abdomen and pelvis was obtained. Following the oral administration of approximately 330 mL of Gastrografin multiple images were obtained following the progress of the oral contrast at 1/2 hour intervals. The injection was made through the existing nasogastric tube. Surgical clips are present overlying the lower portion of the lumbar spine. Total fluoroscopy time was 0. FINDINGS: Initial supervisor porcelain department image demonstrates a nasogastric tube in the stomach. Multiple fluid-filled loops of bowel are seen. No significant bowel air is seen. Gastrografin remains in the stomach for up to 3 hours. There is diffuse dilatation of the small bowel although contrast does reach the pelvic and right-sided ileal loops. The terminal ileum is not visualized. The right side of the colon is collapsed. The distended bowel loops measure about 6 cm in diameter. The transit time is slow. No pneumatosis intestinalis. IMPRESSION: 1. High-grade small bowel obstruction. The findings were reviewed with Dr. Posey. MACRO: None Signed by: Roberto Sellers 09/19/2023 4:17 PM Dictation workstation: [id number] [facility] Work Phone: Radiology Study observation (narrative) [facility] Work Phone: RF Small bowel Views W contr ast POOrdered By: Roberto Sellers on 09-19-2023 [facility] Work Phone: Basic metabolic 2000 panelon 09-18-2023 Anion gap [Moles/Vol] 15 mmol/L 10 - 2 0 mmol/L [facility] Calcium [Mass/Vol] 8.0 mg/dL Low 8.6 - 10. 3 mg/dL [facility] Chloride [Moles/Vol] 112 mmol/L High 98 - 10 7 mmol/L [facility] CO2 [Moles/Vol] 19 mmol/L Low 21 - 32 mmol/L [facility] Creatinine [Mass/Vol] 0.72 mg/dL 0.50 - 1.05 mg/dL [facility] eGFR - PINF [facility] Comment on above: Calculations of manjula mated GFR are performed using the 2020 CKD-EPI Study Refit equation without the race variable for the IDMS-Traceable creatinine methods. https://jasn.asnjournals.org/content/early//ASN.2020 802188 Glucose [Mass/Vol] 70 mg/dL Low 74 - 99 mg/dL [facility] Interpretation and review of laboratory results Abnormal [facility] Potassium [Moles/Vol] 4.2 mmol/L 3.5 - 5.3 mmol/L [facility] Sodium [Moles/Vol] 142 mmol/L 136 - 145 mmol/L [facility] Urea nitrogen [Mass/Vol] 35 mg/dL High 6 - 23 mg/dL [facility] Anion gap [Moles/Vol] 15 mmol/L Normal 10-20 [facility] Comment on above: Performed By: #### 2 4321-2 ####ANANYA CLEMENTS ([id number])[facility] ([facility])[address] [place] [address] Calcium [Mass/Vol] 8.0 mg/dL Low 8.6-10.3 [facility] Comment on above: Performed By: #### 2 4321-2 ####ANANYA CLEMENTS ([id number])[facility] ([facility])[address] [place] [address] 84213 Chloride [Moles/Vol] 112 mmol/L High 98-107 [facility] Comment on above: Performed By: #### 2 4321-2 ####ANANYA CLEMENTS ([id number])[facility] ([facility])[address] [place] [address] 53281 CO2 [Moles/Vol] 19 mmol/L Low 21-32 [facility] Comment on above: Performed By: #### 2 4321-2 ####ANANYA CLEMENTS ([id number])[facility] ([facility])[address] [place] [address] 14473 Creatinine [Mass/Vol] 0.72 mg/dL Normal 0.50-1.05 [facility] Comment on above: Performed By: #### 2 4321-2 ####ANANYA CLEMENTS ([id number])[facility] ([facility])[address] [place] [address] 73824 GFR/1.73 sq M.predicted MDRD (S/P/Bld) [Vol rate/Area] mL/min/{1.73_m2} Normal >60 [facility] Comment on above: Result Comment: Calc ulations of estimated GFR are performed using the 2020 CKD-EPI Study Refit equation without the race variable for the IDMS-Traceable creatinine methods. https://jasn.asnjournals.org/content/early/ASN.2020 721199 Performed By: #### 2 4321-2 ####ANANYA CLEMENTS ([id number])[facility] ([facility])[address] [place] [address] 28698 Glucose [Mass/Vol] 70 mg/dL Low 74-99 [facility] Comment on above: Performed By: #### 2 4321-2 ####ANANYA CLEMENTS ([id number])[facility] ([facility])[address] [place] [address] 66744 Potassium [Moles/Vol] 4.2 mmol/L Normal 3.5-5.3 [facility] Comment on above: Performed By: #### 2 4321-2 ####ANANYA CLEMENTS ([id number])[facility] ([facility])[address] [place] [address] 36358 Sodium [Moles/Vol] 142 mmol/L Normal 136-145 [facility] Comment on above: Performed By: #### 2 4321-2 ####ANANYA CLEMENTS ([id number])[facility] ([facility])[address] [place] [address] 95677 Urea nitrogen [Mass/Vol] 35 mg/dL High 6-23 [facility] Comment on above: Performed By: #### 2 4321-2 ####ANANYA CLEMENTS ([id number])[facility] ([facility])[address] [place] [address] 15715 CBC panel Auto (Bld)on 09-17 Erythrocyte distribution width (RBC) [Ratio] 12.9 % 11.5 - 14.5 % [facility] Hematocrit (Bld) [Volume fraction] 39.3 % 36.0 - 46.0 % [facility] Hemoglobin (Bld) [Mass/Vol] 12.3 g/dL 12.0 - 16.0 g/dL [facility] Interpretation and review of laboratory results Abnormal [facility] MCH (RBC) [Entitic mass] 30.9 pg 26.0 - 34.0 pg [facility] MCHC (RBC) [Mass/Vol] 31.3 g/dL Low 32.0 - 36.0 g/dL [facility] MCV (RBC) [Entitic vol] 99 fL 80 - 100 fL [facility] Nucleated RBC/100 WBC (Bld) [Ratio] 0.0 % [facility] Platelets (Bld) [#/Vol] 274 10*3/uL [facility] RBC (Bld) [#/Vol] 3.98 10*6/uL Low [facility] WBC (Bld) [#/Vol] 8.1 10*3/uL [facility] Erythrocyte distribution width (RBC) [Ratio] 12.9 % Normal 11.5-14.5 [facility] Comment on above: Performed By: #### 5 8410-2 ####ANANYA CLEMENTS ([id number])[facility] ([facility])[address] [place] [address] 71583 Hematocrit (Bld) [Volume fraction] 39.3 % Normal 36.0-46.0 [facility] Comment on above: Performed By: #### 5 8410-2 ####ANANYA CLEMENTS ([id number])[facility] ([facility])[address] [place] [address] 10040 Hemoglobin (Bld) [Mass/Vol] 12.3 g/dL Normal 12.0-16.0 [facility] Comment on above: Performed By: #### 5 8410-2 ####ANANYA LCEMENTS ([id number])[facility] ([facility])[address] [place] [address] 53657 MCH (RBC) [Entitic mass] 30.9 pg Normal 26.0-34.0 [facility] Comment on above: Performed By: #### 5 8410-2 ####ANANYA CLEMENTS ([id number])[facility] ([facility])[address] [place] [address] 13198 MCHC (RBC) [Mass/Vol] 31.3 g/dL Low 32.0-36.0 [facility] Comment on above: Performed By: #### 5 8410-2 ####ANANYA CLEMENTS ([id number])[facility] ([facility])[address] [place] [address] 38026 MCV (RBC) [Entitic vol] 99 fL Normal 80-100 [facility] Comment on above: Performed By: #### 5 8410-2 ####ANANYA CLEMENTS ([id number])[facility] ([facility])[address] [place] [address] 28683 Nucleated RBC/100 WBC (Bld) [Ratio] 0.0 /100 WBCs Normal 0.0-0.0 [facility] Comment on above: Performed By: #### 5 8410-2 ####ANANYA CLEMENTS ([id number])[facility] ([facility])[address] [place] [address] 13914 Platelets (Bld) [#/Vol] 274 x10*3/uL Normal 150-450 [facility] Comment on above: Performed By: #### 5 8410-2 ####ANANYA CLEMENTS ([id number])[facility] ([facility])[address] [place] [address] 61453 RBC (Bld) [#/Vol] 3.98 x10*6/uL Low 4.00-5.20 [facility] Comment on above: Performed By: #### 5 8410-2 ####ANANAY CLEMENTS ([id number])[facility] ([facility])[address] [place] [address] 21099 WBC (Bld) [#/Vol] 8.1 x10*3/uL Normal 4.4-11.3 [facility] Comment on above: Performed By: #### 5 8410-2 ####ANANYA CLEMENTS ([id number])[facility] ([facility])[address] [place] [address] 19423 Comprehensive metabolic 2000 panelon 09-18-2023 Albumin BCP dye [Mass/Vol] 3.4 g/dL 3.4 - 5.0 g/dL [facility] ALP [Catalytic activity/Vol] 82 U/L 33 - 136 U/L [facility] ALT With P-5'-P [Catalytic activity/Vol] 8 U/L 7 - 45 U/L [facility] Comment on above: Patients treated wit h Sulfasalazine may generate falsely decreased results for ALT. Anion gap [Moles/Vol] 16 mmol/L 10 - 2 0 mmol/L [facility] AST With P-5'-P [Catalytic activity/Vol] 13 U/L 9 - 39 U/L [facility] Bilirubin [Mass/Vol] 0.5 mg/dL 0.0 - 1 .2 mg/dL [facility] Calcium [Mass/Vol] 8.3 mg/dL Low 8.6 - 10. 3 mg/dL [facility] Chloride [Moles/Vol] 113 mmol/L High 98 - 10 7 mmol/L [facility] CO2 [Moles/Vol] 17 mmol/L Low 21 - 32 mmol/L [facility] Creatinine [Mass/Vol] 0.67 mg/dL 0.50 - 1.05 mg/dL [facility] eGFR - PINF [facility] Comment on above: Calculations of manjula mated GFR are performed using the 2020 CKD-EPI Study Refit equation without the race variable for the IDMS-Traceable creatinine methods. https://jasn.asnjournals.org/content//ASN.2020 310857 Glucose [Mass/Vol] 82 mg/dL 74 - 99 mg/dL [facility] Interpretation and review of laboratory results Abnormal [facility] Potassium [Moles/Vol] 4.2 mmol/L 3.5 - 5.3 mmol/L [facility] Protein [Mass/Vol] 5.7 g/dL Low 6.4 - 8.2 g/dL [facility] Sodium [Moles/Vol] 142 mmol/L 136 - 145 mmol/L [facility] Urea nitrogen [Mass/Vol] 30 mg/dL High 6 - 23 mg/dL [facility] Albumin BCP dye [Mass/Vol] 3.4 g/dL Normal 3.4-5.0 [facility] Comment on above: Order Comment: For C ontinued TPN Performed By: #### 2 4323-8 ####ANANYA CLEMENTS ([id number])[facility] ([facility])[address] [place] [address] ALP [Catalytic activity/Vol] 82 U/L Normal 33-136 [facility] Comment on above: Order Comment: For C ontinued TPN Performed By: #### 2 4322-8 ####ANANYA CLEMENTS ([id number])[facility] ([facility])[address] [place] [address] ALT With P-5'-P [Catalytic activity/Vol] 8 U/L Normal 7-45 [facility] Comment on above: Order Comment: For C ontinued TPN Result Comment: Kathy ents treated with Sulfasalazine may generate falsely decreased results for ALT. Performed By: #### 2 4322-8 ####ANANYA CLEMENTS ([id number])[facility] ([facility])[address] [place] [address] 16464 Anion gap [Moles/Vol] 16 mmol/L Normal 10-20 [facility] Comment on above: Order Comment: For C ontinued TPN Performed By: #### 2 4322-8 ####ANANYA CLEMENTS ([id number])[facility] ([facility])[address] [place] [address] 21583 AST With P-5'-P [Catalytic activity/Vol] 13 U/L Normal 9-39 [facility] Comment on above: Order Comment: For C ontinued TPN Performed By: #### 2 4322-8 ####ANANYA CLEMENTS ([id number])[facility] ([facility])[address] [place] [address] 04697 Bilirubin [Mass/Vol] 0.5 mg/dL Normal 0.0-1.2 [facility] Comment on above: Order Comment: For C ontinued TPN Performed By: #### 2 4322-8 ####ANANYA CLEMENTS ([id number])[facility] ([facility])[address] [place] [address] Calcium [Mass/Vol] 8.3 mg/dL Low 8.6-10.3 [facility] Comment on above: Order Comment: For C ontinued TPN Performed By: #### 2 4323-8 ####ANANYA CLEMENTS ([id number])[facility] ([facility])[address] [place] [address] Chloride [Moles/Vol] 113 mmol/L High 98-107 [facility] Comment on above: Order Comment: For C ontinued TPN Performed By: #### 2 4323-8 ####ANANYA CLEMENTS ([id number])[facility] ([facility])[address] [place] [address] 38048 CO2 [Moles/Vol] 17 mmol/L Low 21-32 [facility] Comment on above: Order Comment: For C ontinued TPN Performed By: #### 2 4323-8 ####ANANYA CLEMENTS ([id number])[facility] ([facility])[address] [place] [address] 57484 Creatinine [Mass/Vol] 0.67 mg/dL Normal 0.50-1.05 [facility] Comment on above: Order Comment: For C ontinued TPN Performed By: #### 2 4323-8 ####NAANYA CLEMENTS ([id number])[facility] ([facility])[address] [place] [address] 67709 GFR/1.73 sq M.predicted MDRD (S/P/Bld) [Vol rate/Area] mL/min/{1.73_m2} Normal >60 [facility] Comment on above: Order Comment: For C ontinued TPN Result Comment: Calc ulations of estimated GFR are performed using the 2020 CKD-EPI Study Refit equation without the race variable for the IDMS-Traceable creatinine methods. https://jasn.asnjournals.org/content/early/ASN.2020 620005 Performed By: #### 2 4323-8 ####ANANYA CLEMENTS ([id number])[facility] ([facility] [place] [address] Glucose [Mass/Vol] 82 mg/dL Normal 74-99 [facility] Comment on above: Order Comment: For C ontinued TPN Performed By: #### 2 4323-8 ####ANANYA CLEMENTS ([id number])[facility] ([facility])[address] [place] [address] 35327 Potassium [Moles/Vol] 4.2 mmol/L Normal 3.5-5.3 [facility] Comment on above: Order Comment: For C ontinued TPN Performed By: #### 2 3-8 ####ANANYA CLEMENTS ([id number])[facility] ([facility])[address] [place] [address] 31498 Protein [Mass/Vol] 5.7 g/dL Low 6.4-8.2 [facility] Comment on above: Order Comment: For C ontinued TPN Performed By: #### 2 3-8 ####ANANYA CLEMENTS ([id number])[facility] ([facility])[address] [place] [address] 20559 Sodium [Moles/Vol] 142 mmol/L Normal 136-145 [facility] Comment on above: Order Comment: For C ontinued TPN Performed By: #### 2 4323-8 ####ANANYA CLEMENTS ([id number])[facility] ([facility])[address] [place] [address] 29898 Urea nitrogen [Mass/Vol] 30 mg/dL High 6-23 [facility] Comment on above: Order Comment: For C ontinued TPN Performed By: #### 2 3-8 ####ANANYA CLEMENTS ([id number])[facility] ([facility])[address] [place] [address] 78343 Extra Urine Coles Tubeon 08-30 Extra Tube Hold for add-ons. [facility] Comment on above: Auto resulted. [facility] Glucose Test strip manual (B ld) [Mass/Vol]on 09-18-2023 Glucose [Mass/Vol] 79 mg/dL 74 - 99 mg/dL [facility] Interpretation and review of laboratory results Normal [facility] Glucose [Mass/Vol] 79 mg/dL Normal 74-99 [facility] Comment on above: Performed By: #### N GSHPYL #### BENNY KHAN ([id number]) [facility] ([facility]) [address] [place] [address] 85904 Glucose [Mass/Vol] 81 mg/dL 74 - 99 mg/dL [facility] Interpretation and review of laboratory results Normal [facility] Glucose [Mass/Vol] 81 mg/dL Normal 74-99 [facility] Comment on above: Performed By: #### N GSHPYL #### BENNY KHAN ([id number]) [facility] ([facility]) [address] [place] [address] 14339 Glucose [Mass/Vol] 71 mg/dL Low 74 - 99 mg/dL [facility] Interpretation and review of laboratory results Abnormal [facility] Glucose [Mass/Vol] 71 mg/dL Low 74-99 [facility] Comment on above: Performed By: #### 2 341-6 ####ANANYA CLEMENTS ([id number])[facility] ([facility])[address] [place] [address] 88831 Glucose [Mass/Vol] 67 mg/dL Low 74 - 99 mg/dL [facility] Interpretation and review of laboratory results Abnormal [facility] Glucose [Mass/Vol] 67 mg/dL Low 74-99 [facility] Comment on above: Performed By: #### 2 341-6 ####ANANYA CLEMENTS ([id number])[facility] ([facility])[address] [place] [address] 05671 Glucose [Mass/Vol] 72 mg/dL Low 74 - 99 mg/dL [facility] Interpretation and review of laboratory results Abnormal [facility] Glucose [Mass/Vol] 72 mg/dL Low 74-99 [facility] Comment on above: Performed By: #### 2 341-6 ####ANANYA CLEMENTS ([id number])[facility] ([facility])[address] [place] [address] 04622 Magnesiumon 09-18-2023 Magnesium [Mass/Vol] 2.00 mg/dL 1.60 - 2.40 mg/dL [facility] Magnesium [Mass/Vol] 2.00 mg/dL Normal 1.60-2.40 [facility] Comment on above: Order Comment: For C ontinued TPN Performed By: #### 1 9123-9 ####ANANYA CLEMENTS ([id number])[facility] ([facility])[address] [place], [place] [id number] No Panel Informationon 09-17 Interpretation and review of laboratory results Normal [facility] Phosphateon 09-18-2023 Phosphate [Mass/Vol] 2.9 mg/dL Normal 2.5-4.9 [facility] Comment on above: Order Comment: For C ontinued TPN Result Comment: The performance characteristics of phosphorus testing in heparinized plasma have been validated by the individual laboratory site where testing is performed. Testing on heparinized plasma is not approved by the FDA; however, such approval is not necessary. Performed By: #### 2 777-1 ####ANANYA CLEMENTS ([id number])[facility] ([facility])[address] [place] [address] 99153 Phosphoruson 09-18-2023 Phosphate [Mass/Vol] 2.9 mg/dL 2.5 - 4 .9 mg/dL [facility] Comment on above: The performance donnell acteristics of phosphorus testing in heparinized plasma have been validated by the individual laboratory site where testing is performed. Testing on heparinized plasma is not approved by the FDA; however, such approval is not necessary. Triglycerideon 09-18-2023 Triglyceride [Mass/Vol] 119 mg/dL Normal 0-149 U [facility] Comment on above: Order Comment: For T PN Result Comment: Age Desirable Borderline High High Very High 0 D-90 D 19 - 174 ---- ---- ---- 91 D- 9 Y 0 - 74 75 - 99 >/= 100 ---- 10-19 Y 0 - 89 90 - 129 >/= 130 ---- 20-24 Y 0 - 114 115 - 149 >/= 150 ---- >24 Y 0 - 149 150 - 199 200- 499 >/= 500 Venipuncture immediately after or during the administration of Metamizole may lead to falsely low results. Testing should be performed immediately prior to Metamizole dosing. Performed By: #### 2 571-8 ####HARE STARR ([id number])[facility] ([facility])[address] [place] [address] Triglyceride [Mass/Vol]on Interpretation and review of laboratory results Normal [facility] Triglycerideson 09-18-2023 Triglyceride [Mass/Vol] 119 mg/dL 0 - 149 mg/dL [facility] Comment on above: Age Desirable Borderline High High Very High 0 D-90 D 19 - 174 ---- ---- ---- 91 D- 9 Y 0 - 74 75 - 99 >/= 100 ---- 10-19 Y 0 - 89 90 - 129 >/= 130 ---- 20-24 Y 0 - 114 115 - 149 >/= 150 ---- >24 Y 0 - 149 150 - 199 200- 499 >/= 500 Venipuncture immediately after or during the administration of Metamizole may lead to falsely low results. Testing should be performed immediately prior to Metamizole dosing. XR ABDOMEN 3+ VIEWSon 2023 XR ABDOMEN 3+ VIEWS Interpreted By: Jake Sahni, STUDY: XR ABDOMEN 3+ VIEWS; ; 09/18/2023 6:08 am INDICATION: Signs/Symptoms:SBO. COMPARISON: 09/17/2023 radiographs abdomen. 09/17/[address]23 CT abdomen/pelvis ACCESSION NUMBER(S): [id number] ORDERING CLINICIAN: ALEXUS MALIK FINDINGS: NG/OG tube tip terminates over the gastric body and side hole just beyond the GE junction. The heart is normal in size. The pulmonary vasculature is within normal limits. No consolidation or pleural effusion. No pneumothorax. There is redemonstration multiple dilated small bowel loops with air-fluid levels, largest measuring up to 6-7 cm. The remainder of the bowel loops are fluid-filled limiting their assessment. Small colonic stool burden. No evidence of free intraperitoneal air. No portal venous gas or pneumatosis intestinalis. IMPRESSION: NG/OG tube side hole is just beyond the GE junction. Advancement by 3-4 cm is recommended. Redemonstration of dilated small bowel loops in keeping with a bowel obstruction, evaluation limited due to predominantly fluid-filled nature of the small bowel loops. MACRO: None Signed by: Jake Sahni 09/18/2023 6:28 AM Dictation workstation: [id number] [facility] Comment on above: Order Comment: Luis Miguel hickman to order acute abdominal series(two views abdomen and upright CXR) XR Abdomen 3 Viewson 024 NG/OG tube side hole is just beyond the GE junction. Advancement by 3-4 cm is recommended. Redemonstration of dilated small bowel loops in keeping with a bowel obstruction, evaluation limited due to predominantly fluid-filled nature of the small bowel loops. MACRO: None Signed by: Jake Sahni 09/18/2023 6:28 AM Dictation workstation: [id number] [facility] Interpreted By: Jake Sahni, STUDY: XR ABDOMEN 3+ VIEWS; ; 09/18/2023 6:08 am INDICATION: Signs/Symptoms:SBO. COMPARISON: 09/17/2023 radiographs abdomen. 09/17/2023 CT abdomen/pelvis ACCESSION NUMBER(S): [id number] ORDERING CLINICIAN: ALEXUS MALIK FINDINGS: NG/OG tube tip terminates over the gastric body and side hole just beyond the GE junction. The heart is normal in size. The pulmonary vasculature is within normal limits. No consolidation or pleural effusion. No pneumothorax. There is redemonstration multiple dilated small bowel loops with air-fluid levels, largest measuring up to 6-7 cm. The remainder of the bowel loops are fluid-filled limiting their assessment. Small colonic stool burden. No evidence of free intraperitoneal air. No portal venous gas or pneumatosis intestinalis. [facility] Jake Sahni MD - 09/18/2023 Interpreted By: Jake Sahni, STUDY: XR ABDOMEN 3+ VIEWS; ; 09/18/2023 6:08 am INDICATION: Signs/Symptoms:SBO. COMPARISON: 09/17/2023 radiographs abdomen. 09/17/2023 CT abdomen/pelvis ACCESSION NUMBER(S): [id number] ORDERING CLINICIAN: ALEXUS MALIK FINDINGS: NG/OG tube tip terminates over the gastric body and side hole just beyond the GE junction. The heart is normal in size. The pulmonary vasculature is within normal limits. No consolidation or pleural effusion. No pneumothorax. There is redemonstration multiple dilated small bowel loops with air-fluid levels, largest measuring up to 6-7 cm. The remainder of the bowel loops are fluid-filled limiting their assessment. Small colonic stool burden. No evidence of free intraperitoneal air. No portal venous gas or pneumatosis intestinalis. IMPRESSION: NG/OG tube side hole is just beyond the GE junction. Advancement by 3-4 cm is recommended. Redemonstration of dilated small bowel loops in keeping with a bowel obstruction, evaluation limited due to predominantly fluid-filled nature of the small bowel loops. MACRO: None Signed by: Jake Sahni 09/18/2023 6:28 AM Dictation workstation: [id number] [facility] Work Phone: Radiology Study observation (narrative) [facility] Work Phone: XR Abdomen 3 ViewsOrdered By : Jake Sahni on 09-18-2023 [facility] Work Phone: Basic metabolic 2000 panelon 09-17-2023 Anion gap [Moles/Vol] 16 mmol/L 10 - 2 0 mmol/L [facility] Calcium [Mass/Vol] 8.3 mg/dL Low 8.6 - 10. 3 mg/dL [facility] Chloride [Moles/Vol] 105 mmol/L 98 - 10 7 mmol/L [facility] CO2 [Moles/Vol] 19 mmol/L Low 21 - 32 mmol/L [facility] Creatinine [Mass/Vol] 0.83 mg/dL 0.50 - 1.05 mg/dL [facility] GFR/1.73 sq M.predicted among non-blacks MDRD (S/P/Bld) [Vol rate/Area] 77 mL/min/{1.73_m2} - PINF [facility] Comment on above: Calculations of manjula mated GFR are performed using the 2020 CKD-EPI Study Refit equation without the race variable for the IDMS-Traceable creatinine methods. https://jasn.asnjournals.org/content/early/ASN.2020 511901 Glucose [Mass/Vol] 99 mg/dL 74 - 99 mg/dL [facility] Interpretation and review of laboratory results Abnormal [facility] Potassium [Moles/Vol] 3.9 mmol/L 3.5 - 5.3 mmol/L [facility] Sodium [Moles/Vol] 136 mmol/L 136 - 145 mmol/L [facility] Urea nitrogen [Mass/Vol] 39 mg/dL High 6 - 23 mg/dL [facility] Anion gap [Moles/Vol] 16 mmol/L Normal 10-20 [facility] Comment on above: Performed By: #### 2 4321-2 ####ANANYA CLEMENTS ([id number])[facility] ([facility])[address] [place] [address] 87967 Calcium [Mass/Vol] 8.3 mg/dL Low 8.6-10.3 [facility] Comment on above: Performed By: #### 2 4321-2 ####ANANYA CLEMENTS ([id number])[facility] ([facility])[address] [place] [address] 59065 Chloride [Moles/Vol] 105 mmol/L Normal 98-107 [facility] Comment on above: Performed By: #### 2 4321-2 ####ANANYA CLEMENTS ([id number])[facility] ([facility])[address] [place] [address] 32233 CO2 [Moles/Vol] 19 mmol/L Low 21-32 [facility] Comment on above: Performed By: #### 2 4321-2 ####ANANYA CLEMENTS ([id number])[facility] ([facility])[address] [place] [address] 05089 Creatinine [Mass/Vol] 0.83 mg/dL Normal 0.50-1.05 [facility] Comment on above: Performed By: #### 2 4321-2 ####ANANYA CLEMENTS ([id number])[facility] ([facility])[address] [place] [address] 43804 Glomerular filtration rate/1.73 sq M.predicted 77 mL/min/1.73m*2 Normal >60 [facility] Comment on above: Result Comment: Calc ulations of estimated GFR are performed using the 2020 CKD-EPI Study Refit equation without the race variable for the IDMS-Traceable creatinine methods. https://jasn.asnjournals.org/content/early//ASN.2020 332813 Performed By: #### 2 4321-2 ####ANANYA CLEMENTS ([id number])[facility] ([facility])[address] [place] [address] 54429 Glucose [Mass/Vol] 99 mg/dL Normal 74-99 [facility] Comment on above: Performed By: #### 2 4321-2 ####ANANYA CLEMENTS ([id number])[facility] ([facility])[address] [place] [address] 29612 Potassium [Moles/Vol] 3.9 mmol/L Normal 3.5-5.3 [facility] Comment on above: Performed By: #### 2 4321-2 ####ANANYA CLEMENTS ([id number])[facility] ([facility])[address] [place] [address] 69310 Sodium [Moles/Vol] 136 mmol/L Normal 136-145 [facility] Comment on above: Performed By: #### 2 4321-2 ####ANANYA CLEMENTS ([id number])[facility] ([facility])[address] [place] [address] 77133 Urea nitrogen [Mass/Vol] 39 mg/dL High 6-23 [facility] Comment on above: Performed By: #### 2 4321-2 ####ANANYA CLEMENTS ([id number])[facility] ([facility])[address] [place] [address] Bilirubin, Directon 09-17-19 24 Bilirubin.direct [Mass/Vol] 0.1 mg/dL 0.0 - 0.3 mg/dL [facility] Bilirubin.glucuronidated+Lamont irubin.albumin boundon 09-17-2023 Bilirubin.direct [Mass/Vol] 0.1 mg/dL Normal 0.0-0.3 [facility] Comment on above: Performed By: #### 1 968-7 #### ANANYA CLEMENTS ([id number]) [facility] ([facility]) [address] [place] [address] Blood type and Indirect anti body screen panel (Bld)on 09-17-2023 ABO group Nom (Bld) O [facility] Blood group antibody screen Ql Negative [facility] D Ag Ql (Bld) Negative [facility] ABO group Nom (Bld) O Normal [facility] Comment on above: Performed By: #### 3 4532-2 ####ANANYA CLEMENTS ([id number])[facility] ([facility])[address] [place] [address] Blood group antibody screen Ql Negative [facility] Comment on above: Performed By: #### 3 4532-2 ####ANANYA CLEMENTS ([id number])[facility] ([facility])[address] [place] [address] D Ag Ql (Bld) Negative [facility] Comment on above: Performed By: #### 3 4532-2 ####ANANYA CLEMENTS ([id number])[facility] ([facility])[address] [place] [address] [place] C reactive proteinon 024 CRP [Mass/Vol] 0.55 mg/dL Normal <1.00 [facility] Comment on above: Performed By: #### 1 988-5 ####ANANYA CLEMENTS ([id number])[facility] ([facility])[address] [place] [address] C-Reactive Proteinon 024 CRP [Mass/Vol] 0.55 mg/dL NINF - 1.00 mg/dL [facility] CBC W Auto Differential pane l (Bld)on 09-17-2023 Basophils (Bld) [#/Vol] 0.03 10*3/uL [facility] Basophils/100 WBC (Bld) 0.3 % 0.0 - 2.0 % [facility] Eosinophils (Bld) [#/Vol] 0.02 10*3/uL [facility] Eosinophils/100 WBC (Bld) 0.2 % 0.0 - 6.0 % [facility] Erythrocyte distribution width (RBC) [Ratio] 12.8 % 11.5 - 14.5 % [facility] Hematocrit (Bld) [Volume fraction] 41.3 % 36.0 - 46.0 % [facility] Hemoglobin (Bld) [Mass/Vol] 14.0 g/dL 12.0 - 16.0 g/dL [facility] Immature granulocytes (Bld) [#/Vol] 0.04 10*3/uL [facility] Immature granulocytes/100 WBC (Bld) 0.5 % 0.0 - 0.9 % [facility] Comment on above: Immature Granulocyte Count (IG) includes promyelocytes, myelocytes and metamyelocytes but does not include bands. Percent differential counts (%) should be interpreted in the context of the absolute cell counts (cells/UL). Lymphocytes (Bld) [#/Vol] 1.95 10*3/uL [facility] Lymphocytes/100 WBC (Bld) 22.4 % 13.0 - 44.0 % [facility] MCH (RBC) [Entitic mass] 30.9 pg 26.0 - 34.0 pg [facility] MCHC (RBC) [Mass/Vol] 33.9 g/dL 32.0 - 36.0 g/dL [facility] MCV (RBC) [Entitic vol] 91 fL 80 - 100 fL [facility] Monocytes (Bld) [#/Vol] 0.81 10*3/uL [facility] Monocytes/100 WBC (Bld) 9.3 % 2.0 - 10.0 % [facility] Neutrophils (Bld) [#/Vol] 5.84 10*3/uL [facility] Comment on above: Percent differential counts (%) should be interpreted in the context of the absolute cell counts (cells/uL). Neutrophils/100 WBC (Bld) 67.3 % 40.0 - 80.0 % [facility] Nucleated RBC/100 WBC (Bld) [Ratio] 0.0 % [facility] Platelets (Bld) [#/Vol] 329 10*3/uL [facility] RBC (Bld) [#/Vol] 4.53 10*6/uL [facility] WBC (Bld) [#/Vol] 8.7 10*3/uL [facility] Basophils (Bld) [#/Vol] 0.03 x10*3/uL Normal 0.00-0.10 [facility] Comment on above: Performed By: #### 5 7021-8 #### ANANYA CLEMENTS ([id number]) [facility] ([facility]) [address] [place] [address] 48056 Basophils/100 WBC (Bld) 0.3 % Normal 0.0-2.0 [facility] Comment on above: Performed By: #### 5 7021-8 #### ANANYA CLEMENTS ([id number]) [facility] ([facility]) [address] [place] [address] 17310 Eosinophils (Bld) [#/Vol] 0.02 x10*3/uL Normal 0.00-0.70 [facility] Comment on above: Performed By: #### 5 7021-8 #### ANANYA CLEMENTS ([id number]) [facility] ([facility]) [address] [place] [address] 26138 Eosinophils/100 WBC (Bld) 0.2 % Normal 0.0-6.0 [facility] Comment on above: Performed By: #### 5 7021-8 #### ANANYA CLEMENTS ([id number]) [facility] ([facility]) [address] [place] [address] 66165 Erythrocyte distribution width (RBC) [Ratio] 12.8 % Normal 11.5-14.5 [facility] Comment on above: Performed By: #### 5 7021-8 #### ANANYA CLEMENTS ([id number]) [facility] ([facility]) [address] [place] [address] Hematocrit (Bld) [Volume fraction] 41.3 % Normal 36.0-46.0 [facility] Comment on above: Performed By: #### 5 7021-8 #### ANANYA CLEMENTS ([id number]) [facility] ([facility]) [address] [place] [address] Hemoglobin (Bld) [Mass/Vol] 14.0 g/dL Normal 12.0-16.0 [facility] Comment on above: Performed By: #### 5 7021-8 #### ANANYA CLEMENTS ([id number]) [facility] ([facility]) [address] [place], [place] [address] Immature granulocytes (Bld) [#/Vol] 0.04 x10*3/uL Normal 0.00-0.70 [facility] Comment on above: Performed By: #### 5 7021-8 #### ANANYA CLEMENTS ([id number]) [facility] ([facility]) [address] [place] [address] Immature granulocytes/100 WBC (Bld) 0.5 % Normal 0.0-0.9 [facility] Comment on above: Result Comment: Ayala ture Granulocyte Count (IG) includes promyelocytes, myelocytes and metamyelocytes but does not include bands. Percent differential counts (%) should be interpreted in the context of the absolute cell counts (cells/UL). Performed By: #### 5 7021-8 #### ANANYA CLEMENTS ([id number]) [facility] ([facility]) [address] [place], [place] [address] Lymphocytes (Bld) [#/Vol] 1.95 x10*3/uL Normal 1.20-4.80 [facility] Comment on above: Performed By: #### 5 7021-8 #### ANANYA CLEMENTS ([id number]) [facility] ([facility]) [facility] [place] [address] Lymphocytes/100 WBC (Bld) 22.4 % Normal 13.0-44.0 [facility] Comment on above: Performed By: #### 5 7021-8 #### ANANYA CLEMENTS ([id number]) [facility] ([facility]) [address] [place] [address] 09900 MCH (RBC) [Entitic mass] 30.9 pg Normal 26.0-34.0 [facility] Comment on above: Performed By: #### 5 7021-8 #### ANANYA CLEMENTS ([id number]) [facility] ([facility]) [address] [place] [address] 62371 MCHC (RBC) [Mass/Vol] 33.9 g/dL Normal 32.0-36.0 [facility] Comment on above: Performed By: #### 5 7021-8 #### ANANYA CLEMENTS ([id number]) [facility] ([facility]) [address] [place] [address] 35349 MCV (RBC) [Entitic vol] 91 fL Normal 80-100 [facility] Comment on above: Performed By: #### 5 7021-8 #### ANANYA CLEMENTS ([id number]) [facility] ([facility]) [address] [place] [address] 09554 Monocytes (Bld) [#/Vol] 0.81 x10*3/uL Normal 0.10-1.00 [facility] Comment on above: Performed By: #### 5 7021-8 #### ANANYA CLEMENTS ([id number]) [facility] ([facility]) [address] [place] [address] 92563 Monocytes/100 WBC (Bld) 9.3 % Normal 2.0-10.0 [facility] Comment on above: Performed By: #### 5 7021-8 #### ANANYA CLEMENTS ([id number]) [facility] ([facility]) [address] [place] [address] 19605 Neutrophils (Bld) [#/Vol] 5.84 x10*3/uL Normal 1.20-7.70 [facility] Comment on above: Result Comment: Perc ent differential counts (%) should be interpreted in the context of the absolute cell counts (cells/uL). Performed By: #### 5 7021-8 #### ANANYA CLEMENTS ([id number]) [facility] ([facility]) [address] [place] [address] 88495 Neutrophils/100 WBC (Bld) 67.3 % Normal 40.0-80.0 [facility] Comment on above: Performed By: #### 5 7021-8 #### ANANYA CLEMENTS ([id number]) [facility] ([facility]) [address] [place] [address] 59705 Nucleated RBC/100 WBC (Bld) [Ratio] 0.0 /100 WBCs Normal 0.0-0.0 [facility] Comment on above: Performed By: #### 5 7021-8 #### ANANYA CLEMENTS ([id number]) [facility] ([facility]) [address] [place] [address] 26760 Platelets (Bld) [#/Vol] 329 x10*3/uL Normal 150-450 [facility] Comment on above: Performed By: #### 5 7021-8 #### ANANYA CLEMENTS ([id number]) [facility] ([facility]) [address] [place] [address] 19141 RBC (Bld) [#/Vol] 4.53 x10*6/uL Normal 4.00-5.20 [facility] Comment on above: Performed By: #### 5 7021-8 #### ANANYA CLEMENTS ([id number]) [facility] ([facility]) [address] [place] [address] 52709 WBC (Bld) [#/Vol] 8.7 x10*3/uL Normal 4.4-11.3 [facility] Comment on above: Performed By: #### 5 7021-8 #### ANANYA CLEMENTS ([id number]) [facility] ([facility]) [address] [place] [address] 99037 CBC panel Auto (Bld)on 09-16 Erythrocyte distribution width (RBC) [Ratio] 12.9 % 11.5 - 14.5 % [facility] Hematocrit (Bld) [Volume fraction] 39.9 % 36.0 - 46.0 % [facility] Hemoglobin (Bld) [Mass/Vol] 13.2 g/dL 12.0 - 16.0 g/dL [facility] Interpretation and review of laboratory results Normal [facility] MCH (RBC) [Entitic mass] 31.1 pg 26.0 - 34.0 pg [facility] MCHC (RBC) [Mass/Vol] 33.1 g/dL 32.0 - 36.0 g/dL [facility] MCV (RBC) [Entitic vol] 94 fL 80 - 100 fL [facility] Nucleated RBC/100 WBC (Bld) [Ratio] 0.0 % [facility] Platelets (Bld) [#/Vol] 320 10*3/uL [facility] RBC (Bld) [#/Vol] 4.24 10*6/uL [facility] WBC (Bld) [#/Vol] 8.7 10*3/uL [facility] Erythrocyte distribution width (RBC) [Ratio] 12.9 % Normal 11.5-14.5 [facility] Comment on above: Performed By: #### 5 8410-2 ####ANNAYA CLEMENTS ([id number])[facility] ([facility])[address] [place] [address] 50430 Hematocrit (Bld) [Volume fraction] 39.9 % Normal 36.0-46.0 [facility] Comment on above: Performed By: #### 5 8410-2 ####ANANYA CLEMENTS ([id number])[facility] ([facility])[address] [place] [address] 83444 Hemoglobin (Bld) [Mass/Vol] 13.2 g/dL Normal 12.0-16.0 [facility] Comment on above: Performed By: #### 5 8410-2 ####ANANYA CLEMENTS ([id number])[facility] ([facility])[address] [place] [address] 04652 MCH (RBC) [Entitic mass] 31.1 pg Normal 26.0-34.0 [facility] Comment on above: Performed By: #### 5 8410-2 ####ANANYA CLEMENTS ([id number])[facility] ([facility])[address] [place] [address] 96192 MCHC (RBC) [Mass/Vol] 33.1 g/dL Normal 32.0-36.0 [facility] Comment on above: Performed By: #### 5 8410-2 ####ANANYA CLEMENTS ([id number])[facility] ([facility])[address] [place], [place] [address] MCV (RBC) [Entitic vol] 94 fL Normal 80-100 [facility] Comment on above: Performed By: #### 5 8410-2 ####ANANYA CLEMENTS ([id number])[facility] ([facility])[address] [place] [address] 88359 Nucleated RBC/100 WBC (Bld) [Ratio] 0.0 /100 WBCs Normal 0.0-0.0 [facility] Comment on above: Performed By: #### 5 8410-2 ####ANANYA CLEMENTS ([id number])[facility] ([facility])[address] [place] [address] 50754 Platelets (Bld) [#/Vol] 320 x10*3/uL Normal 150-450 [facility] Comment on above: Performed By: #### 5 8410-2 ####ANANYA CLEMENTS ([id number])[facility] ([facility])[address] [place] [address] 31291 RBC (Bld) [#/Vol] 4.24 x10*6/uL Normal 4.00-5.20 [facility] Comment on above: Performed By: #### 5 8410-2 ####ANANYA CLEMENTS ([id number])[facility] ([facility])[address] [place] [address] 48033 WBC (Bld) [#/Vol] 8.7 x10*3/uL Normal 4.4-11.3 [facility] Comment on above: Performed By: #### 5 8410-2 ####HARE STARR ([id number])[facility] ([facility])[address] [place] [address] CT ABDOMEN PELVIS W IV CONTR Mario 09-17-2023 CT ABDOMEN PELVIS W IV CONTRAST Interpreted By: Dionne Britton, STUDY: CT ABDOMEN PELVIS W IV CONTRAST; ; 09/17/2023 12:38 pm INDICATION: Signs/Symptoms:abd pain, n/v. COMPARISON: 12/04/2021 ACCESSION NUMBER(S): [id number] ORDERING CLINICIAN: GLADYS ROBLES TECHNIQUE: Serial axial CT images obtained of the abdomen and pelvis following intravenous administration of 60 mL of Omnipaque 350. Images reformatted in the coronal and sagittal projection All CT examinations are performed with 1 or more of the following dose reduction techniques: Automated exposure control, adjustment of mA and/or kv according to patient's size, or use of iterative reconstruction techniques. FINDINGS: Included lung bases demonstrate basilar dependent atelectasis. No infiltrate or effusion. Distal esophagus is unremarkable. Liver is unremarkable Gallbladder is unremarkable Spleen is unremarkable Adrenal glands are unremarkable Pancreas is unremarkable. Right kidney is unremarkable. Left kidney is unremarkable. Retroperitoneum demonstrates mild vascular calcification of the abdominal aorta. Multiple surgical eusebio demonstrated within the lower anterior abdomen as well as pelvis status post lymph node dissection. No lymphadenopathy demonstrated. Stomach is unremarkable. Small bowel loops are fluid and gas-filled and dilated measuring up to 5.7 cm. This is seen to the level of the mid jejunum with transition point in the midline upper pelvis with focal loop of small bowel demonstrating peculiar appearing peculiar hyperdensity in the intraluminal location simulating intussusception. However, this is peculiar in orientation and demonstrates a C-shaped configuration within the lumen of the small bowel with this density measuring 2.3 x 2.4 cm in greatest AP and transverse dimension respectively. Correlate with ingestion of foreign body as a potential etiology. The small bowel proximal and distal to the area of presumed foreign body demonstrates mild mucosal thickening and mild perienteric fat stranding. There is no evidence for perforation. Small bowel loops distal to this area are decompressed. There is mild stool within the proximal colon. Mid to distal colon is relatively decompressed. CT pelvis: Unopacified bladder is unremarkable. There is no pelvic lymphadenopathy. No free fluid demonstrated. Visualized osseous structures demonstrate multilevel degenerative discogenic changes lower lumbar spine with moderate loss disc space height at L2/3 through L4/5 as well as L5/S1. Anterolisthesis of L5 on S1 measuring 5 mm. IMPRESSION: 1. Small-bowel obstruction with dilatation measuring up to 5.7 cm with transition point in the midline upper pelvis with intraluminal density within the mid jejunum in this area measuring 2.4 cm which has the appearance of the foreign body. The hyperdensity simulates an intussusception on sagittal images. However, in the coronal and axial plane this does not appear to represent an anatomic focus. There is mild mucosal thickening and perienteric fat stranding about the level of the obstruction. No perforation. General surgery consultation recommended. MACRO: None Signed by: Dionne Britton 09/17/2023 1:33 PM Dictation workstation: [id number] [facility] CT Abdomen and Pelvis W cont rast Jean-Pierre 09-17-2023 1. Small-bowel obstruction with dilatation measuring up to 5.7 cm with transition point in the midline upper pelvis with intraluminal density within the mid jejunum in this area measuring 2.4 cm which has the appearance of the foreign body. The hyperdensity simulates an intussusception on sagittal images. However, in the coronal and axial plane this does not appear to represent an anatomic focus. There is mild mucosal thickening and perienteric fat stranding about the level of the obstruction. No perforation. General surgery consultation recommended. MACRO: None Signed by: Dionne Britton 09/17/2023 1:33 PM Dictation workstation: [id number] [facility] Interpreted By: Dionne Perry, STUDY: CT ABDOMEN PELVIS W IV CONTRAST; ; 09/17/2023 12:38 pm INDICATION: Signs/Symptoms:abd pain, n/v. COMPARISON: 12/04/2021 ACCESSION NUMBER(S): [id number] ORDERING CLINICIAN: GLADYS ROBLES TECHNIQUE: Serial axial CT images obtained of the abdomen and pelvis following intravenous administration of 60 mL of Omnipaque 350. Images reformatted in the coronal and sagittal projection All CT examinations are performed with 1 or more of the following dose reduction techniques: Automated exposure control, adjustment of mA and/or kv according to patient's size, or use of iterative reconstruction techniques. FINDINGS: Included lung bases demonstrate basilar dependent atelectasis. No infiltrate or effusion. Distal esophagus is unremarkable. Liver is unremarkable Gallbladder is unremarkable Spleen is unremarkable Adrenal glands are unremarkable Pancreas is unremarkable. Right kidney is unremarkable. Left kidney is unremarkable. Retroperitoneum demonstrates mild vascular calcification of the abdominal aorta. Multiple surgical eusebio demonstrated within the lower anterior abdomen as well as pelvis status post lymph node dissection. No lymphadenopathy demonstrated. Stomach is unremarkable. Small bowel loops are fluid and gas-filled and dilated measuring up to 5.7 cm. This is seen to the level of the mid jejunum with transition point in the midline upper pelvis with focal loop of small bowel demonstrating peculiar appearing peculiar hyperdensity in the intraluminal location simulating intussusception. However, this is peculiar in orientation and demonstrates a C-shaped configuration within the lumen of the small bowel with this density measuring 2.3 x 2.4 cm in greatest AP and transverse dimension respectively. Correlate with ingestion of foreign body as a potential etiology. The small bowel proximal and distal to the area of presumed foreign body demonstrates mild mucosal thickening and mild perienteric fat stranding. There is no evidence for perforation. Small bowel loops distal to this area are decompressed. There is mild stool within the proximal colon. Mid to distal colon is relatively decompressed. CT pelvis: Unopacified bladder is unremarkable. There is no pelvic lymphadenopathy. No free fluid demonstrated. Visualized osseous structures demonstrate multilevel degenerative discogenic changes lower lumbar spine with moderate loss disc space height at L2/3 through L4/5 as well as L5/S1. Anterolisthesis of L5 on S1 measuring 5 mm. [facility] Dionne Britton MD - 09/17/2023 Interpreted By: Dionne Britton, STUDY: CT ABDOMEN PELVIS W IV CONTRAST; ; 09/17/2023 12:38 pm INDICATION: Signs/Symptoms:abd pain, n/v. COMPARISON: 12/04/2021 ACCESSION NUMBER(S): [id number] ORDERING CLINICIAN: GLADYS ROBLES TECHNIQUE: Serial axial CT images obtained of the abdomen and pelvis following intravenous administration of 60 mL of Omnipaque 350. Images reformatted in the coronal and sagittal projection All CT examinations are performed with 1 or more of the following dose reduction techniques: Automated exposure control, adjustment of mA and/or kv according to patient's size, or use of iterative reconstruction techniques. FINDINGS: Included lung bases demonstrate basilar dependent atelectasis. No infiltrate or effusion. Distal esophagus is unremarkable. Liver is unremarkable Gallbladder is unremarkable Spleen is unremarkable Adrenal glands are unremarkable Pancreas is unremarkable. Right kidney is unremarkable. Left kidney is unremarkable. Retroperitoneum demonstrates mild vascular calcification of the abdominal aorta. Multiple surgical eusebio demonstrated within the lower anterior abdomen as well as pelvis status post lymph node dissection. No lymphadenopathy demonstrated. Stomach is unremarkable. Small bowel loops are fluid and gas-filled and dilated measuring up to 5.7 cm. This is seen to the level of the mid jejunum with transition point in the midline upper pelvis with focal loop of small bowel demonstrating peculiar appearing peculiar hyperdensity in the intraluminal location simulating intussusception. However, this is peculiar in orientation and demonstrates a C-shaped configuration within the lumen of the small bowel with this density measuring 2.3 x 2.4 cm in greatest AP and transverse dimension respectively. Correlate with ingestion of foreign body as a potential etiology. The small bowel proximal and distal to the area of presumed foreign body demonstrates mild mucosal thickening and mild perienteric fat stranding. There is no evidence for perforation. Small bowel loops distal to this area are decompressed. There is mild stool within the proximal colon. Mid to distal colon is relatively decompressed. CT pelvis: Unopacified bladder is unremarkable. There is no pelvic lymphadenopathy. No free fluid demonstrated. Visualized osseous structures demonstrate multilevel degenerative discogenic changes lower lumbar spine with moderate loss disc space height at L2/3 through L4/5 as well as L5/S1. Anterolisthesis of L5 on S1 measuring 5 mm. IMPRESSION: 1. Small-bowel obstruction with dilatation measuring up to 5.7 cm with transition point in the midline upper pelvis with intraluminal density within the mid jejunum in this area measuring 2.4 cm which has the appearance of the foreign body. The hyperdensity simulates an intussusception on sagittal images. However, in the coronal and axial plane this does not appear to represent an anatomic focus. There is mild mucosal thickening and perienteric fat stranding about the level of the obstruction. No perforation. General surgery consultation recommended. MACRO: None Signed by: Dionne Britton 09/17/2023 1:33 PM Dictation workstation: [id number] [facility] Work Phone: Radiology Study observation (narrative) [facility] Work Phone: CT Abdomen and Pelvis W cont rast IVOrdered By: Dionne Britton on 09-17-2023 [facility] Work Phone: Comprehensive metabolic 2000 panelon 09-17-2023 Albumin BCP dye [Mass/Vol] 3.2 g/dL Low 3.4 - 5.0 g/dL [facility] ALP [Catalytic activity/Vol] 78 U/L 33 - 136 U/L [facility] ALT With P-5'-P [Catalytic activity/Vol] 7 U/L 7 - 45 U/L [facility] Comment on above: Patients treated wit h Sulfasalazine may generate falsely decreased results for ALT. Anion gap [Moles/Vol] 15 mmol/L 10 - 2 0 mmol/L [facility] AST With P-5'-P [Catalytic activity/Vol] 10 U/L 9 - 39 U/L [facility] Bilirubin [Mass/Vol] 0.5 mg/dL 0.0 - 1 .2 mg/dL [facility] Calcium [Mass/Vol] 7.7 mg/dL Low 8.6 - 10. 3 mg/dL [facility] Chloride [Moles/Vol] 106 mmol/L 98 - 10 7 mmol/L [facility] CO2 [Moles/Vol] 22 mmol/L 21 - 32 mmol/L [facility] Creatinine [Mass/Vol] 1.01 mg/dL 0.50 - 1.05 mg/dL [facility] GFR/1.73 sq M.predicted among non-blacks MDRD (S/P/Bld) [Vol rate/Area] 61 mL/min/{1.73_m2} - PINF [facility] Comment on above: Calculations of manjula mated GFR are performed using the 2020 CKD-EPI Study Refit equation without the race variable for the IDMS-Traceable creatinine methods. https://jasn.asnjournals.org/content/early//ASN.2020 944724 Glucose [Mass/Vol] 128 mg/dL High 74 - 99 mg/dL [facility] Interpretation and review of laboratory results Abnormal [facility] Potassium [Moles/Vol] 3.6 mmol/L 3.5 - 5.3 mmol/L [facility] Protein [Mass/Vol] 5.5 g/dL Low 6.4 - 8.2 g/dL [facility] Sodium [Moles/Vol] 139 mmol/L 136 - 145 mmol/L [facility] Urea nitrogen [Mass/Vol] 46 mg/dL High 6 - 23 mg/dL [facility] Albumin BCP dye [Mass/Vol] 3.2 g/dL Low 3.4-5.0 [facility] Comment on above: Performed By: #### 2 4323-8 #### ANANYA CLEMENTS ([id number]) [facility] ([facility]) [address] [place] [address] ALP [Catalytic activity/Vol] 78 U/L Normal 33-136 [facility] Comment on above: Performed By: #### 2 4323-8 #### ANANYA CLEMENTS ([id number]) [facility] ([facility]) [address] [place] [address] ALT With P-5'-P [Catalytic activity/Vol] 7 U/L Normal 7-45 [facility] Comment on above: Result Comment: Kathy ents treated with Sulfasalazine may generate falsely decreased results for ALT. Performed By: #### 2 4323-8 #### ANANYA CLEMENTS ([id number]) [facility] ([facility]) [facility] [place] [address] Anion gap [Moles/Vol] 15 mmol/L Normal 10-20 [facility] Comment on above: Performed By: #### 2 4323-8 #### ANANYA CLEMENTS ([id number]) [facility] ([facility]) [address] [place] [address]143 AST With P-5'-P [Catalytic activity/Vol] 10 U/L Normal 9-39 [facility] Comment on above: Performed By: #### 2 4323-8 #### ANANYA CLEMENTS ([id number]) [facility] ([facility]) [facility] [place] [address] Bilirubin [Mass/Vol] 0.5 mg/dL Normal 0.0-1.2 [facility] Comment on above: Performed By: #### 2 4323-8 #### ANANYA CLEMENTS ([id number]) [facility] ([facility]) [address] [place] [address]591 Calcium [Mass/Vol] 7.7 mg/dL Low 8.6-10.3 [facility] Comment on above: Performed By: #### 2 432-8 #### ANANYA CLEMENTS ([id number]) [facility] ([facility]) [address] [place] [address] Chloride [Moles/Vol] 106 mmol/L Normal 98-107 [facility] Comment on above: Performed By: #### 2 432-8 #### ANANYA CLEMENTS ([id number]) [facility] ([facility]) [address] [place] [address] CO2 [Moles/Vol] 22 mmol/L Normal 21-32 [facility] Comment on above: Performed By: #### 2 432-8 #### ANANYA CLEMENTS ([id number]) [facility] ([facility]) [address] [place] [address]66 Creatinine [Mass/Vol] 1.01 mg/dL Normal 0.50-1.05 [facility] Comment on above: Performed By: #### 2 4323-8 #### ANANYA CLEMENTS ([id number]) [facility] ([facility]) [address] [place] [address] Glomerular filtration rate/1.73 sq M.predicted 61 mL/min/1.73m*2 Normal >60 [facility] Comment on above: Result Comment: Calc ulations of estimated GFR are performed using the 2020 CKD-EPI Study Refit equation without the race variable for the IDMS-Traceable creatinine methods. https://jasn.asnjournals.org/content//ASN.2020 679686 Performed By: #### 2 4323-8 #### ANANYA CLEMENTS ([id number]) [facility] ([facility]) [address] [place] [address] Glucose [Mass/Vol] 128 mg/dL High 74-99 [facility] Comment on above: Performed By: #### 2 4323-8 #### ANANYA CLEMENTS ([id number]) [facility] ([facility]) [address] [place] [address] Potassium [Moles/Vol] 3.6 mmol/L Normal 3.5-5.3 [facility] Comment on above: Performed By: #### 2 3-8 #### ANANYA CLEMENTS ([id number]) [facility] ([facility]) [address] [place] [address] Protein [Mass/Vol] 5.5 g/dL Low 6.4-8.2 [facility] Comment on above: Performed By: #### 2 4323-8 #### ANANYA CLEMENTS ([id number]) [facility] ([facility]) [address] [place] [address] Sodium [Moles/Vol] 139 mmol/L Normal 136-145 [facility] Comment on above: Performed By: #### 2 4323-8 #### ANANYA CLEMENTS ([id number]) [facility] ([facility]) [address] [place] [address] Urea nitrogen [Mass/Vol] 46 mg/dL High 6-23 [facility] Comment on above: Performed By: #### 2 4323-8 #### ANANYA CLEMENTS ([id number]) [facility] ([facility]) [address] [place] [address] 48726 HbA1c (Bld) [Mass fraction]o n 09-17-2023 Average glucose Estimated from glycated hemoglobin (Bld) [Mass/Vol] 114 mg/dL Not Established [facility] Diagnosis of Diabetes-Adults Non-Diabetic: < or = 5.6% Increased risk for developing diabetes: 5.7-6.4% Diagnostic of diabetes: > or = 6.5% Monitoring of Diabetes Age (y).................... ... Therapeutic Goal (%) Adults: >18.................... .....<7.0 Pediatrics: 13-18.................. .<7.5 Pediatrics: 7-12................... .<8.0 Pediatrics: 0-6.................... . 7.5-8.5 [place] [employer]. Diabetes Care 33(S1), May 2009 [facility] Average glucose Estimated from glycated hemoglobin (Bld) [Mass/Vol] 114 mg/dL Normal Not Established [facility] Comment on above: Order Comment: Diagn osis of Acuhlguz-FvtwkfLjt-Trwnwkql: < or = 5.6%Increased risk for developing diabetes: 5.7-6.4%Diagnostic of diabetes: > or = 6.5%Monitoring of DiabetesAge (y)....................... Therapeutic Goal (%)Adults: >18.........................<7.0Pediatrics: 13-18...................<7.5Pediatrics: 7-12....................<8.0Pediatrics: 0-6..................... 7.5-8.5American Diabetes Association. Diabetes Care 33(S1), May 2009 Performed By: #### 4 548-4 ####HARE STARR ([id number])[facility] ([facility])[address] [place] [address] Hemoglobin A1Con 09-17-2023 HbA1c (Bld) [Mass fraction] 5.6 % see below [facility] Hemoglobin A1c/Hemoglobin.to reji 09-17-2023 HbA1c (Bld) [Mass fraction] 5.6 % Normal see below [facility] Comment on above: Order Comment: Diagn osis of Qjczabwz-HevdevXpm-Dxgxwvgr: < or = 5.6%Increased risk for developing diabetes: 5.7-6.4%Diagnostic of diabetes: > or = 6.5%Monitoring of DiabetesAge (y)....................... Therapeutic Goal (%)Adults: >18.........................<7.0Pediatrics: 13-18...................<7.5Pediatrics: 7-12....................<8.0Pediatrics: 0-6..................... 7.5-8.5American Diabetes Association. Diabetes Care 33(S1), May 2009 Performed By: #### 4 548-4 ####ANANYA CLEMENTS ([id number])[facility] ([facility] [place] [id number] Lactateon 09-17-2023 Lactate [Moles/Vol] 1.6 mmol/L 0.4 - 2. 0 mmol/L [facility] Lactate [Moles/Vol] 1.6 mmol/L Normal 0.4-2.0 [facility] Comment on above: Order Comment: Venip uncture immediately after or during the administration of Metamizole may lead to falsely low results. Testing should be performed immediately prior to Metamizole dosing. Performed By: #### 2 524-7 #### ANANYA CLEMENTS ([id number]) [facility] ([facility]) [address] [place] [address] Lactate [Moles/Vol]on 2023 Interpretation and review of laboratory results Normal [facility] Venipuncture immediately after or during the administration of Metamizole may lead to falsely low results. Testing should be performed immediately prior to Metamizole dosing. [facility] Lavender Topon 09-17-2023 Extra Tube Hold for add-ons. [facility] Comment on above: Auto resulted. [facility] Lipaseon 09-17-2023 Lipase [Catalytic activity/Vol] 21 U/L 9 - 82 U/L [facility] Lipase [Catalytic activity/V ol]on 09-17-2023 Venipuncture immediately after or during the administration of Metamizole may lead to falsely low results. Testing should be performed immediately prior to Metamizole dosing. [facility] Magnesiumon 09-17-2023 Magnesium [Mass/Vol] 2.15 mg/dL 1.60 - 2.40 mg/dL [facility] Magnesium [Mass/Vol] 2.15 mg/dL Normal 1.60-2.40 [facility] Comment on above: Performed By: #### 1 9123-9 ####ANANYA CLEMENTS ([id number])[facility] ([facility])[address] [place] [address] No Panel Informationon 09-16 Extra Tube Hold for add-ons. [facility] Comment on above: Auto resulted. [facility] Interpretation and review of laboratory results Normal [facility] Interpretation and review of laboratory results Normal [facility] Phosphateon 09-17-2023 Phosphate [Mass/Vol] 3.1 mg/dL Normal 2.5-4.9 [facility] Comment on above: Result Comment: The performance characteristics of phosphorus testing in heparinized plasma have been validated by the individual laboratory site where testing is performed. Testing on heparinized plasma is not approved by the FDA; however, such approval is not necessary. Performed By: #### 2 777-1 ####ANANYA CLEMENTS ([id number])[facility] ([facility])[address] [place] [address] Phosphoruson 09-17-2023 Phosphate [Mass/Vol] 3.1 mg/dL 2.5 - 4 .9 mg/dL [facility] Comment on above: The performance donnell acteristics of phosphorus testing in heparinized plasma have been validated by the individual laboratory site where testing is performed. Testing on heparinized plasma is not approved by the FDA; however, such approval is not necessary. Prealbuminon 09-17-2023 Prealbumin [Mass/Vol] 20.3 mg/dL 18.0 - 40.0 mg/dL [facility] Prealbumin [Mass/Vol] 20.3 mg/dL Normal 18.0-40.0 [facility] Comment on above: Performed By: #### 1 4338-8 ####LINDA Beckett ([id number])[facility] ([facility])[address] [place] [address] Prealbumin [Mass/Vol]on 08-30 Interpretation and review of laboratory results Normal [facility] Triacylglycerol lipaseon Lipase [Catalytic activity/Vol] 21 U/L Normal 9-82 [facility] Comment on above: Order Comment: Venip uncture immediately after or during the administration of Metamizole may lead to falsely low results. Testing should be performed immediately prior to Metamizole dosing. Performed By: #### 3 040-3 #### ANANYA CLEMENTS ([id number]) [facility] ([facility]) [address] [place] [address] Urinalysis complete W Reflex Culture panel (U)Ordered By: Elisha Huff on 09-17-2023 Appearance (U) Clear Clear [facility] Bilirubin (U) [Mass/Vol] Negative NEGATIVE [facility] Color (U) Yellow Straw, Yellow [facility] Glucose Auto test strip (U) [Mass/Vol] Negative NEGATIVE mg/dL [facility] Interpretation and review of laboratory results Abnormal [facility] Ketones (U) [Mass/Vol] 80 (2+) Abnormal NEGAT SHEKHAR mg/dL [facility] Leukocyte esterase Auto test strip Ql (U) Negative NEGATIVE [facility] Nitrite Auto test strip Ql (U) Negative NEGATIVE [facility] pH (U) 5.0 [pH] 5.0, 5.5, 6.0, 6.5, 7.0, 7.5, 8.0 [facility] Protein (U) [Mass/Vol] Negative NEGAT SHEKHAR mg/dL [facility] RBC (U) [#/Vol] Negative NEGATIVE [facility] Specific gravity (U) [Rel density] 1.010 1.005 - 1.035 [facility] Urobilinogen (U) [Mass/Vol] mg/dL NINF - 2.0 mg/dL [facility] Urinalysis complete W Reflex Culture panel (U)on 09-17-2023 Appearance (U) Clear Normal Clear [facility] Comment on above: Performed By: #### 5 8077-9 ####ANANYA CLEMENTS ([id number])[facility] ([facility])[address] [place] [address] Bilirubin (U) [Mass/Vol] Negative Normal NEGATIVE [facility] Comment on above: Performed By: #### 5 8077-9 ####ANANYA CLEMENTS ([id number])[facility] ([facility])[address] [place] [address] Color (U) Yellow Normal Straw, Yellow [facility] Comment on above: Performed By: #### 5 8077-9 ####ANANYA CLEMENTS ([id number])[facility] ([facility])[address] [place] [address] Glucose Auto test strip (U) [Mass/Vol] Negative Normal NEGATIVE [facility] Comment on above: Performed By: #### 5 8077-9 ####ANANYA CLEMENTS ([id number])[facility] ([facility])[address] [place] [address] Ketones (U) [Mass/Vol] 80 (2+) Abnormal [facility]GATIVE [facility] Comment on above: Performed By: #### 5 8077-9 ####ANANYA CLEMENTS ([id number])[facility] ([facility])[address] [place] [address] Leukocyte esterase Auto test strip Ql (U) Negative Normal NEGATIVE [facility] Comment on above: Performed By: #### 5 8077-9 ####ANANYA CLEMENTS ([id number])[facility] ([facility])[address] [place] [address] 79397 Nitrite Auto test strip Ql (U) Negative Normal NEGATIVE [facility] Comment on above: Performed By: #### 5 8077-9 ####ANANYA CLEMENTS ([id number])[facility] ([facility])[address] [place] [address] 85667 pH (U) 5.0 [pH] Normal 5.0, 5.5, 6.0, 6.5, 7.0, 7.5, 8.0 [facility] Comment on above: Performed By: #### 5 8077-9 ####ANANYA CLEMENTS ([id number])[facility] ([facility])[address] [place] [address] Protein (U) [Mass/Vol] Negative Normal NEGATIVE [facility] Comment on above: Performed By: #### 5 8077-9 ####ANANYA CLEMENTS ([id number])[facility] ([facility])[address] [place] [address] 40967 RBC (U) [#/Vol] Negative Normal NEGATIVE [facility] Comment on above: Performed By: #### 5 8077-9 ####ANANYA CLEMNETS ([id number])[facility] ([facility])[address] [place], [place] [id number] Specific gravity (U) [Rel density] 1.010 Normal 1.005-1.035 [facility] Comment on above: Performed By: #### 5 8077-9 ####ANANYA CLEMENTS ([id number])[facility] ([facility])[address] [place] [address]87[address] Urobilinogen (U) [Mass/Vol] mg/dL Normal <2.0 [facility] Comment on above: Performed By: #### 5 8077-9 ####HARE STARR ([id number])[facility] ([facility])[address] [place] [address] XR ABDOMEN 1 VIEWon 09-17-19 24 XR ABDOMEN 1 VIEW Interpreted By: Partha Banks, STUDY: Abdominal series dated 09/17/2023. INDICATION: Enteric tube placement. COMPARISON: None. Correlation is made with same date CT. ACCESSION NUMBER(S): [id number] ORDERING CLINICIAN: ALEXUS MALIK TECHNIQUE: Two AP radiographs of the abdomen. FINDINGS: There are dilated loops of small bowel measuring up to approximately 5 cm. Suspected foreign body in the small bowel seen on same date CT is not well assessed for on radiography. Surgical changes are seen over the abdomen. Contrast is seen in the renal collecting systems, ureters, and bladder. There is an enteric tube with the tip and side port projecting over the left upper quadrant. Degenerative changes seen of the spine SI joints and pubic symphysis. IMPRESSION: 1. Enteric tube as above. 2. Findings compatible with a degree of small-bowel obstruction. Please see the CT from the same date for further discussion. Signed by: Partha Ledesma 09/17/2023 4:10 PM Dictation workstation: [id number] [facility] XR Abdomen Single viewon 1. Enteric tube as above. 2. Findings compatible with a degree of small-bowel obstruction. Please see the CT from the same date for further discussion. Signed by: Partha Ledesma 09/17/2023 4:10 PM Dictation workstation: [id number] MMODAL Interpreted By: Partha Banks, STUDY: Abdominal series dated 09/17/2023. INDICATION: Enteric tube placement. COMPARISON: None. Correlation is made with same date CT. ACCESSION NUMBER(S): [id number] ORDERING CLINICIAN: ALEXUS MALIK TECHNIQUE: Two AP radiographs of the abdomen. FINDINGS: There are dilated loops of small bowel measuring up to approximately 5 cm. Suspected foreign body in the small bowel seen on same date CT is not well assessed for on radiography. Surgical changes are seen over the abdomen. Contrast is seen in the renal collecting systems, ureters, and bladder. There is an enteric tube with the tip and side port projecting over the left upper quadrant. Degenerative changes seen of the spine SI joints and pubic symphysis. [facility] MMODAL Partha Ledesma M D - 09/17/2023 Interpreted By: Partha Ledesma, STUDY: Abdominal series dated 09/17/2023. INDICATION: Enteric tube placement. COMPARISON: None. Correlation is made with same date CT. ACCESSION NUMBER(S): [id number] ORDERING CLINICIAN: ALEXUS MALIK TECHNIQUE: Two AP radiographs of the abdomen. FINDINGS: There are dilated loops of small bowel measuring up to approximately 5 cm. Suspected foreign body in the small bowel seen on same date CT is not well assessed for on radiography. Surgical changes are seen over the abdomen. Contrast is seen in the renal collecting systems, ureters, and bladder. There is an enteric tube with the tip and side port projecting over the left upper quadrant. Degenerative changes seen of the spine SI joints and pubic symphysis. IMPRESSION: 1. Enteric tube as above. 2. Findings compatible with a degree of small-bowel obstruction. Please see the CT from the same date for further discussion. Signed by: Partha Ledesma 09/17/2023 4:10 PM Dictation workstation: [id number] [facility] Work Phone: Radiology Study observation (narrative) [facility] Work Phone: XR Abdomen Single viewOrdere d By: Partha Ledesma on 09-17-2023 [facility] Work Phone: COLONOSCOPYon 05-26-2023 Colonoscopy Table formatting fro m the original result was not included. Normal [facility] Colonoscopy studyon 05-26-19 24 Table formatting fro m the original result was not included. Impression Medium hemorrhoids Performed pancolonic forceps biopsies Findings Internal medium hemorrhoids observed during retroflexion; no bleeding was identified Suboptimal Prep Performed multiple random pancolonic forceps biopsies Recommendation Await pathology results Follow up with PCP Repeat colonoscopy in 3 years Repeat colonoscopy in 3 years due to suboptimal prep. Indication Chronic diarrhea Staff Staff Role No Staff Documented Medications See Anesthesia Record. Preprocedure A history and physical has been performed, and patient medication allergies have been reviewed. The patient's tolerance of previous anesthesia has been reviewed. The risks and benefits of the procedure and the sedation options and risks were discussed with the patient. All questions were answered and informed consent obtained. Details of the Procedure The patient underwent moderate sedation, which was administered by a sedation nurse and an anesthesia professional. The patient's blood pressure, ECG, ETCO2, heart rate, respirations, oxygen and level of consciousness were monitored throughout the procedure. A digital rectal exam was performed. A perianal exam was performed. The scope was introduced through the anus and advanced to the cecum. Retroflexion was performed in the rectum. The total BBPS score was 6. Bowel prep was not adequate. The patient experienced no blood loss. The procedure was not difficult. The patient tolerated the procedure well. There were no apparent adverse events. Events Procedure Events Event Event Time ENDO SCOPE IN TIME 05/26/2023 9:13 AM ENDO SCOPE OUT TIME 05/26/2023 9:19 AM ENDO SCOPE IN TIME 05/26/2023 9:27 AM ENDO CECUM REACHED 05/26/2023 9:33 AM ENDO SCOPE OUT TIME 05/26/2023 9:46 AM Specimens ID Type Source Tests Collected by Time 1 : Tissue STOMACH ANTRUM BIOPSY SURGICAL PATHOLOGY EXAM Karla Alvarado MA 05/26/2023 0915 2 : Tissue ESOPHAGUS DISTAL BIOPSY SURGICAL PATHOLOGY EXAM Karla Alvarado MA 05/26/2023 0917 3 : Tissue ESOPHAGUS MID BIOPSY SURGICAL PATHOLOGY EXAM Karla Alvarado MA 05/26/2023 0917 4 : Tissue STOMACH BODY/CORPUS POLYPECTOMY SURGICAL PATHOLOGY EXAM Karla Alvarado MA 05/26/2023 0918 5 : Tissue COLON - RANDOM BIOPSY SURGICAL PATHOLOGY EXAM Karla Alvarado MA 05/26/2023 0926 Procedure Location [address] [address] Referring Provider Monie Galarza Md [address] [place] [address] Procedure Provider Edgar Gordon MD [facility] Work Phone: [facility] Work Phone: EGDon 05-26-2023 Esophagogastroduodenosc opy Table formatting from the original result was not included. [facility] EGD Study observation Narrat iveon 05-26-2023 Table formatting fro m the original result was not included. Impression Mild abnormal mucosa, consistent with gastritis in the antrum; performed cold forceps biopsy One fundic gland polyp measuring 5-9 mm in the body of the stomach; performed cold forceps biopsy with partial removal Performed forceps biopsies in the upper third of the esophagus, middle third of the esophagus, lower third of the esophagus and GE junction to rule out Gardner's esophagus and eosinophilic esophagitis Small type I hiatal hernia Findings Mild, localized erythematous mucosa in the antrum, consistent with gastritis; no bleeding was identified; performed cold forceps biopsy to rule out H. pylori; One sessile fundic gland polyp measuring 5-9 mm in the body of the stomach; no bleeding was identified; performed cold forceps biopsy with partial removal for sampling Performed multiple random forceps biopsies in the upper third of the esophagus, middle third of the esophagus, lower third of the esophagus and GE junction to rule out Gardner's esophagus and eosinophilic esophagitis Small sliding hiatal hernia (type I hiatal hernia) without Tee lesions present, confirmed by retroflexion. Hill grade II hiatal hernia Recommendation Await pathology results Follow up with PCP DX Gastric Polyp Small Hiatal hernia Indication Abdominal bloating, Chronic nausea, Gastroesophageal reflux disease without esophagitis Staff Staff Role No Staff Documented Medications See Anesthesia Record. Preprocedure A history and physical has been performed, and patient medication allergies have been reviewed. The patient's tolerance of previous anesthesia has been reviewed. The risks and benefits of the procedure and the sedation options and risks were discussed with the patient. All questions were answered and informed consent obtained. Details of the Procedure The patient underwent moderate sedation, which was administered by a sedation nurse and an anesthesia professional. The patient's blood pressure, ECG, ETCO2, heart rate, respirations, oxygen and level of consciousness were monitored throughout the procedure. The scope was introduced through the mouth and advanced to the third part of the duodenum. Retroflexion was performed in the cardia and fundus. Prior to the procedure, the patient's H. Pylori status was unknown. The patient's estimated blood loss was minimal (<5 mL). The procedure was not difficult. The patient tolerated the procedure well. There were no apparent adverse events. Events Procedure Events Event Event Time ENDO SCOPE IN TIME 05/26/2023 9:13 AM ENDO SCOPE OUT TIME 05/26/2023 9:19 AM Specimens ID Type Source Tests Collected by Time 1 : Tissue STOMACH ANTRUM BIOPSY SURGICAL PATHOLOGY EXAM Carlita Suarez RN 05/26/2023 0915 2 : Tissue ESOPHAGUS DISTAL BIOPSY SURGICAL PATHOLOGY EXAM Carlita Suarez RN 05/26/2023 0917 3 : Tissue ESOPHAGUS MID BIOPSY SURGICAL PATHOLOGY EXAM Karla Alvarado MA 05/26/2023 0917 4 : Tissue STOMACH BODY/CORPUS POLYPECTOMY SURGICAL PATHOLOGY EXAM Karla Alvarado MA 05/26/2023 0918 Procedure Location [address] [address] Referring Provider Monie Galarza Md [address] [place] [address] Procedure Provider Edgar Gordon MD [facility] Work Phone: [facility] Work Phone: H. PYLORI DRUG SUSCEPTIBILIT Y GENOTYPIC ASSAYon 05-26-2023 ELECTRONICALLY SIGNED BY Benny Khan MD PhD [facility] Comment on above: Performed By: #### N GSHPYL #### BENNY KHAN ([id number]) [facility]) [address] [place], [place] [id number] H. PYLORI DRUG SUSCEPTIBILITY RESULTS SEE COMMENT [facility] Comment on above: Result Comment: H. p ylori DNA is Detected. RESISTANCE ASSOCIATED VARIANTS DETECTED: None Note: GYRA and 16S mutation status cannot be assessed. INTERPRETATION AND POTENTIAL THERAPEUTIC REGIMENS: Considering the results of the mutation analysis, the following therapeutic regimens should be considered: -Clarithromycin triple therapy: clarithromycin + amoxicillin (or metronidazole) + PPI for 14 days -Clarithromycin concomitant therapy: clarithromycin + amoxicillin + metronidazole + PPI for 14 days -Bismuth quadruple therapy: bismuth + tetracycline + metronidazole + PPI for 14 days Regimen Dosing Guide based on regimens in the Adult H. pylori Treatment Guidelines (NOTE: This list includes all H. pylori regimens; use only the dosing corresponding to the above specified regimens.) -Bismuth quadruple therapy* = Bismuth 300-525 mg QID + Tetracycline 500 mg QID + Metronidazole 500 mg QID + PPI BID x 14 days *Available co-formulated as Pylera (bismuth subcitrate 140 mg, metronidazole 125 mg, tetracycline 125 mg per capsule dosed as 3 capsules four times daily; twice daily PPI must be administered separately) x 10 days -Clarithromycin triple therapy = Clarithromycin 500 mg BID + Amoxicillin 1 g BID (or Metronidazole 500 mg BID) + PPI BID x 14 days Available co-packaged as Prevpac (1 tablet clarithromycin 500 mg, 2 capsules amoxicillin 500 mg, and 1 capsule lansoprazole 30 mg dosed twice daily) -Clarithromycin concomitant therapy = Clarithromycin 500 mg BID + Amoxicillin 1g BID + Metronidazole 500 mg BID + PPI BID x 14 days -High dose dual therapy = Amoxicillin 1 g TID + double-dose PPI BID x 14 days -Levofloxacin quadruple therapy = Bismuth 300-525 mg QID + Levofloxacin 500 mg once daily + Amoxicillin 1 g BID (or Metronidazole 500 mg BID) + PPI BID x 10-14 days -Levofloxacin triple therapy = Levofloxacin 500 mg once daily + Amoxicillin 1 g BID + PPI BID x 10-14 days -Rifabutin triple therapy*^* = Rifabutin 300 mg once daily + Amoxicillin 1 g BID + PPI BID x 10 days *^*Available co-formulated as Talicia (rifabutin 12.5 mg, amoxicillin 250 mg, omeprazole 10 mg per capsule dosed as 4 capsules three times daily) Proton Pump Inhibitor Options All regimens dose proton pump inhibitors twice daily. High dose dual therapy uses double the standard PPI dose administered twice daily. Individual PPIs may have varying insurance coverage. -Lansoprazole 30 mg -Omeprazole 20 mg -Esomeprazole 20 mg -Pantoprazole 40 mg -Rabeprazole 20 mg -Dexlansoprazole 30 mg Notes: 1.Treatment recommendations are guided by mutations detected in hotspot regions known to confer resistance to specific antimicrobial agents, including 23S (clarithromycin), 16S (tetracycline), and gyrA (levofloxacin) and additionally take into consideration the 2020 AGA Clinical Practice Update on Management of Refractory H. pylori [1,2]. Individual patient characteristics such as known prior failed regimens, antibiotic allergies and severe intolerances, risks of fluoroquinolones, treatment adherence, and insurance coverage may further influence choice of regimen. Vonoprazan-containing regimens are not included due to absence of guidelines or consensus statements and limited clinical experience but may be considered in individual cases. 2.Consider referral to allergy for patients with history of penicillin allergy if amoxicillin is included in a preferred regimen. Refer to Penicillin Allergy Assessment Guidelines for further information. 3.Doxycycline is not considered equivalent to tetracycline in bismuth-based quadruple therapy. 4.Amoxicillin and metronidazole are considered equivalent in clarithromycin triple therapy and levofloxacin quadruple therapy regimens. 5.Consider shorter 10-day course or avoid levofloxacin-containing regimens in patients at high risk for fluoroquinolone toxicity (e.g., prior C. difficile infection, [employer] abnormalities, known QT prolongation, etc.). 6.Regimens including rifabutin are generally considered not preferred due to higher risk of toxicity. Potential toxicities include orange discoloration of body fluids (common), rash, flu-like syndrome, uveitis, and cytopenias. DISCLAIMER: Reference range for RESULT is 'H. pylori DNA is Not Detected.' Reference range for VARIANTS DETECTED is 'none'. This assay is designed to qualitatively detect targeted clinically-relevant nucleotide variants in 16S, 23S, and gyrA genes of Helicobacter pylori. Extracted nucleic acid is amplified by PCR, followed by next-generation sequencing and alignment and variant calling using genome [id number] [3]. A negative result does not rule out the presence of bacteria template below the limit of detection of this assay. This assay has been used to identify mutations associated with treatment failure in a retrospective cohort [3-4]. Decisions on patient care and treatment must be based on independent medical judgment of the treating physician, taking into account all applicable information con (more content not included)... Performed By: #### N GSHPYL #### BENNY KHAN ([id number]) [facility] ([facility]) [address] [place] [address] No Panel Informationon 05-26 Radiology Study observation (narrative) [facility] Work Phone: Surgical pathology studyon 0 05-26-2023 Surgical pathology study Pathology report.total SEE COMMENT Surgical Pathology Case: [id number] Authorizing Provider: Edgar Gordon MD Collected: 05/26/2023 0915 Ordering Location: [facility] Received: 05/26/[address] [place] [address] Center Pathologist: Alicia Carreon MD Specimens: A) - STOMACH ANTRUM BIOPSY B) - ESOPHAGUS DISTAL BIOPSY C) - ESOPHAGUS MID BIOPSY D) - STOMACH BODY/CORPUS POLYPECTOMY E) - COLON - RANDOM BIOPSY Path report.final diagnosis SEE COMMENT A. Stomach, antrum, biopsy: - Chronic active Helicobacter pylori gastritis, see comment. B. Esophagus, distal, biopsy: - Inflamed squamocolumnar mucosa with reactive changes, negative for intestinal metaplasia or eosinophilic esophagitis. C. Esophagus, mid, biopsy: - Active esophagitis, see comment. D. Stomach, body, polypectomy: - Fundic gland polyp. E. Random colon, biopsy: - Colonic mucosa with no significant pathologic findings. - No histologic evidence of microscopic colitis. Laboratory comment By the signature on this report, the individual or group listed as making the Final Interpretation/Diagnosi s certifies that they have reviewed this case. Path report.comments SEE COMMENT A. Hqyf-hnnkroglay-gjnnvyq ing for antibiotic resistant Helicobacter pylori genotypes is pending and will be reported as an addendum. C. The biopsy demonstrates squamous mucosa with reactive changes and active esophagitis. Infectious organisms are not identified on H&E or special stain, although the pattern of neutrophilic inflammation remains concerning for a fungal esophagitis. The diagnostic criteria for eosinophilic esophagitis are not met. Differential diagnosis includes reflux disease, drug-related injury, infection, mechanical/chemical trauma, among others. Path report.gross observation SEE COMMENT A: Received in formalin, labeled with the patient's name and hospital number and A, is 1 fragment of dupont, soft tissue measuring 0.7 x 0.3 x 0.2 cm. The specimen is submitted in toto in one cassette. SMS B: Received in formalin, labeled with the patient's name and hospital number and DE, are multiple fragments of dupont, soft tissue aggregating to 1.1 x 0.4 x 0.2 cm. The specimen is submitted in toto in one cassette. SMS C: Received in formalin, labeled with the patient's name and hospital number and ME, are multiple fragments of dupont, soft tissue aggregating to 1.0 x 0.3 x 0.1 cm. The specimen is submitted in toto in one cassette. SMS D: Received in formalin, labeled with the patient's name and hospital number and GP, is 1 fragment of dupont, soft tissue measuring 0.5 x 0.3 x 0.2 cm. The specimen is submitted in toto in one cassette. SMS E: Received in formalin, labeled with the patient's name and hospital number and R, are multiple fragments of dupont, soft tissue aggregating to 1.9 x 0.6 x 0.2 cm. The specimen is submitted in toto in two cassettes. [facility] AP ASR DISCLAIMER One or more of the reagents used to perform assays on this specimen MAY have contained components considered to be analyte specific reagents (ASR's). ASR's have not been cleared or approved by the U.S. Food and Drug Administration. These assays were developed and their performance characteristics determined by the Department of Pathology at [facility]. The FDA does not require this test to go through premarket FDA review. This test is used for clinical purposes. It should not be regarded as investigational or for research. This laboratory is certified under the Clinical Laboratory Improvement Amendments (CLIA) as qualified to perform high complexity clinical laboratory testing. The assays were performed with appropriate positive and negative controls which stained appropriately. [facility] DIGITAL DIAG MAMM BILAT WITH TOMOon 10-01-2022 DIGITAL DIAG MAMM BILAT WITH GARLAND Patient Name: KAMILA PATEL STUDY: DIGITAL DIAG MAMM BILAT WITH GARLNAD; 10/01/2022 9:29 am ACCESSION NUMBER(S): [id number] ORDERING CLINICIAN: STEVE AIKEN INDICATION: breast density follow up R92.2: Breast density. COMPARISON: 09/21/2021, 12/01/2017 FINDINGS: 2D and tomosynthesis images were reviewed at 1 mm slice thickness. There are areas of scattered fibroglandular tissue. No suspicious masses or calcifications are identified. An oil cyst is seen, in the anterior aspect of the right breast in the retroareolar area measuring 3.7 mm, at craniocaudal scan number 39/59 and MLO 36/57, not present previously. CAD was utilized. In the left breast the area of concern is unchanged at craniocaudal image 35/63 and is consistent with a benign process. No spiculation or architectural distortion. IMPRESSION: No mammographic evidence of malignancy. Stable appearance from previous examination. BI-RADS CATEGORY: Category: 2 - Benign. Recommendation: 1 Year Screening. For any future breast imaging appointments, please call [phone]). Electronically signed by: ROBERTO SELLERS MD Normal [facility] Radiologyon 10-01-2022 MG Breast Diagnostic Normal [facility] [address] Work Phone: Office Visit (Internal Medic ine)on 05-18-2022 Follow-up visit Diagnoses/Problems Assessed Benign essential HTN (401.1) (I10) Orders Benign essential HTN Comprehensive Metabolic Panel; Status:Active - Retrospective Authorization; Requested for:18May2022; Perform:Lab Services - Lab To Draw (Blood Test); Order Comments:PER PROVIDER OK; Due:[id number]; Last Updated By:Ema De León; 05/18/2022 8:23:45 AM;Ordered; For:Benign essential HTN; Ordered By:Monie Galarza; Patient Discussion/Summary 5 MON FOR LABS AND MEDICARE WELLNESS. CMP Provider Impressions ADVISED TO MONITOR THE BP AND TO HAVE LOW SALT DIET, ADVISED TO FOLLOW THE LOW FAT, LOW CALORIE DIET AND TO EAT SMALLER PORTIONS MORE FREQUENT SERVINGS. ADVISED FOR REGULAR DAILY EXERCISE . ADVISED FOR RELAXATION TECHNIQUES. ADVISED TO CUT DOWN ON CAFFEINE. PT IS SUPPOSED TO DO COLONOSCOPY WITH GI. Chief Complaint 2 WEEK F/U- STARTED ON LISINOPRIL FOR BP History of Present IllnessF/U ON HTN AFTER STARTING THE LISINOPRIL. TOLERATES THE TX WELL. HAS NO COMPLAINTS. Review of Systems Constitutional: not feeling poorly, no fever, no recent weight gain and no recent weight loss. Eyes: no blurred vision and no diplopia. ENT: no hearing loss, no tinnitus, no earache, no sore throat, no hoarseness and no swollen glands in the neck. Cardiovascular: no chest pain, no tightness or heavy pressure, no shortness of breath, no palpitations and no lower extremity edema. Respiratory: no cough, not coughing up sputum and no wheezing that is consistent with asthma. Gastrointestinal: no change in bowel habits, no diarrhea, no constipation, no bloody stools, no nausea, no vomiting, no abdominal pain, no signs and symptoms of ulcer disease, no jay colored stools and no intolerance to fatty foods. Genitourinary: no urinary frequency, no dysuria, no burning sensation during urination and no hematuria. Musculoskeletal: no arthralgias, no joint stiffness, no muscle weakness, no back pain and no difficulty walking. Skin: no rashes, no change in skin color and pigmentation, no skin lesions and no skin lumps. Neurological: no headaches, no dizziness, no seizures, no tingling, no numbness, no signs and symptoms of stroke and no limb weakness. Psychiatric: no confusion, no memory lapses or loss, no depression and no sleep disturbances. Endocrine: no goiter, no thyroid disorder, no diabetes mellitus, no excessive thirst, no dry skin, no cold intolerance, no heat intolerance and no increased urinary frequency. Hematologic/Lymphatic: is not slow to heal, does not bleed easily, does not bruise easily, no thrombophlebitis, no anemia and no history of blood transfusion. All other systems have been reviewed and are negative for complaint. Active Problems Problems Abdominal bloating (787.3) (R14.0) Advance directive discussed with patient (V65.49) (Z71.89) Anxiety (300.00) (F41.9) Benign essential HTN (401.1) (I10) Breast density (611.79) (R92.2) Colon cancer screening (V76.51) (Z12.11) Daily nausea (787.02) (R11.0) Depression screening negative (V79.0) (Z13.31) Elevated blood pressure reading without diagnosis of hypertension (796.2) (R03.0) Encounter for Medicare annual wellness exam (V70.0) (Z00.00) Encounter for screening mammogram for breast cancer (V76.12) (Z12.31) Fatigue (780.79) (R53.83) GERD (gastroesophageal reflux disease) (530.81) (K21.9) Heartburn (787.1) (R12) History of cervical cancer (V10.41) (Z85.41) 2011 History of endometrial cancer (V10.42) (Z85.42) 2011 Hypertriglyceridemia (272.1) (E78.1) Insomnia (780.52) (G47.00) Intermittent epigastric abdominal pain (789.06) (R10.13) Osteopenia after menopause (733.90,V49.81) (M85.80,Z78.0) Pap test, as part of routine gynecological examination (V76.2) (Z01.419) 09/16/2021: CoTest Negative 2017 Partial bowel obstruction (560.9) (K56.600) Post-menopausal (V49.81) (Z78.0) Pre-procedure lab exam (V72.63) (Z01.812) 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) S/P total hysterectomy (V88.01) (Z90.710) Screening for hyperlipidemia (V77.91) (Z13.220) Skin candidiasis (112.3) (B37.2) Vaginal Pap smear (V76.47) (Z12.72) Past Medical History Problems H/O mammogram (V15.89) (Z92.89) CAT 2 History of uterine cancer (V10.42) (Z85.42) History of NVD (normal vaginal delivery) (650) (O80) [id number] _5# 14oz 02/19/1989_40weeks_Fema le_6# 10oz Pap test, as part of routine gynecological examination (V76.2) (Z01.419) 09/16/2021: CoTest Negative 2017 Surgical History Problems History of Carpal tunnel surgery History of Colonoscopy Managed By: Naomy Casillas (Internal Medicine) History of Esophagogastroduodenosc opy History of Hysterectomy History of Tonsillectomy History of Tubal ligation Family History Mother Family history of coronary artery disease (V17.3) (Z82.49) Family history of myocardial infarction (V17.3) (Z82.49) Father Family history of hypertension (V17.49) (Z82.49) Family history of leukemia (V16.6) (Z80. (more content not included)... Normal [employer] Tobacco Screening.on 023 Adult depression screening assessment No [facility] Work Phone: Fall risk assessment a) No falls within the last year [facility] Work Phone: Tobacco use status [facility] b) No M [facility] Work Phone: Medicare Annual Wellness Vis adriana 05-04-2022 Medicare Annual Wellness Visit *Chief Complaint Pt here for 2022 MCW visit. States her blood pressure has been running in the 160's/ 90's consistently. Adult Risk Screening Advanced Care Planning discussed and documented advance care plan or surrogate decision maker documented in the medical record. History of Present Illness The patient is being seen for the subsequent annual wellness visit. Past Medical, Surgical and Family History: reviewed and updated in chart. Medications and Supplements: Review of all medications by a prescribing practitioner or clinical pharmacist (such as prescriptions, OTCs, herbal therapies and supplements) documented in the medical record. No, the patient is not using opioids. Patient Self Assessment of Health Status: good. Tobacco use: Non-User Alcohol use: Non-User Illicit drug use: Non-User Current diet: well balanced diet and Heart Healthy Diet. Exercise Frequency: regularly. Depression/Suicide Screening: . During the past 2 weeks, the patient has not felt down, depressed or hopeless. During the past 2 weeks, the patient has not felt little interest or pleasure in doing things. Hearing Impairment: none. Cognitive Impairment: No cognitive impairment observed. Bathing: performs independently. Dressing: performs independently. Walking: performs independently. Managing Finances: performs independently. Shopping: performs independently. Managing Medications: performs independently. Housework / Basic Home Maintenance: performs independently. Falls Risk Screening:. KAMILA has not fallen in the last 6 months. Home safety risk factors: none. F/U ON HTN AND BONE DENSITY .PT TRIED TO MANAGE THE HTN WITH DIET AND EXERCISE WHICH DIDN'T HELP . MEDICARE WELLNESS EXAM. Review of Systems Constitutional: not feeling poorly, no fever, no recent weight gain and no recent weight loss. Eyes: no blurred vision and no diplopia. ENT: no hearing loss, no tinnitus, no earache, no sore throat, no hoarseness and no swollen glands in the neck. Cardiovascular: no chest pain, no tightness or heavy pressure, no shortness of breath, no palpitations and no lower extremity edema. Respiratory: no cough, not coughing up sputum and no wheezing that is consistent with asthma. Gastrointestinal: no change in bowel habits, no diarrhea, no constipation, no bloody stools, no nausea, no vomiting, no abdominal pain, no signs and symptoms of ulcer disease, no jay colored stools and no intolerance to fatty foods. Genitourinary: no urinary frequency, no dysuria, no burning sensation during urination and no hematuria. Musculoskeletal: no arthralgias, no joint stiffness, no muscle weakness, no back pain and no difficulty walking. Skin: no rashes, no change in skin color and pigmentation, no skin lesions and no skin lumps. Neurological: no headaches, no dizziness, no seizures, no tingling, no numbness, no signs and symptoms of stroke and no limb weakness. Psychiatric: no confusion, no memory lapses or loss, no depression and no sleep disturbances. Endocrine: no goiter, no thyroid disorder, no diabetes mellitus, no excessive thirst, no dry skin, no cold intolerance, no heat intolerance and no increased urinary frequency. Hematologic/Lymphatic: is not slow to heal, does not bleed easily, does not bruise easily, no thrombophlebitis, no anemia and no history of blood transfusion. All other systems have been reviewed and are negative for complaint. *Active Problems Abdominal bloating (787.3) (R14.0) Advance directive discussed with patient (V65.49) (Z71.89) Anxiety (300.00) (F41.9) Benign essential HTN (401.1) (I10) Breast density (611.79) (R92.2) Colon cancer screening (V76.51) (Z12.11) Daily nausea (787.02) (R11.0) Depression screening negative (V79.0) (Z13.31) Elevated blood pressure reading without diagnosis of hypertension (796.2) (R03.0) Encounter for Medicare annual wellness exam (V70.0) (Z00.00) Encounter for screening mammogram for breast cancer (V76.12) (Z12.31) Fatigue (780.79) (R53.83) GERD (gastroesophageal reflux disease) (530.81) (K21.9) Heartburn (787.1) (R12) History of cervical cancer (V10.41) (Z85.41) 2011 History of endometrial cancer (V10.42) (Z85.42) 2011 Hypertriglyceridemia (272.1) (E78.1) Insomnia (780.52) (G47.00) Intermittent epigastric abdominal pain (789.06) (R10.13) Pap test, as part of routine gynecological examination (V76.2) (Z01.419) 09/16/2021: CoTest Negative 2018 Partial bowel obstruction (560.9) (K56.600) Post-menopausal (V49.81) (Z78.0) Pre-procedure lab exam (V72.63) (Z01.812) 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 Normal [employer] Tobacco Screening.on 023 Fall risk assessment a) No falls within the last year [facility] Work Phone: Tobacco use status [facility] b) No M [facility] Work Phone: BONE DENSITY, DEXA 1 OR MORE SITES: AXIAL SKELETONon 04-28-2022 BONE DENSITY, DEXA 1 OR MORE SITES: AXIAL SKELETON Patient Name: KAMILA PATEL STUDY: BONE DENSITY, DEXA 1 OR MORE SITES: AXIAL TLPWZRC86/28/2022 9:28 am INDICATION: POST MENOPAUSAL Z78.0: Post-menopausalThe patient is a 66 year old female for a screening bone Densitometry (DEXA). COMPARISON: None. ACCESSION NUMBER(S): [id number] ORDERING CLINICIAN: MONIE GALARZA TECHNIQUE: Bone Densitometry (DEXA) of the lumbar spine and left hip performed. FINDINGS: Name: KAMILA PATEL Date:1955 Height:0 Gender:F Exam Date:04/28/2022 Weight:0 Indications:POST MENOPAUSAL Z78.0: Post-menopausal Fractures:None Treatments:None LEFT FEMUR -TOTAL Bone Mineral Density: 0.746 g/cm2 T-Score -1.6 Z-Score -0.2 LEFT FEMUR -NECK Bone Mineral Density: 0.613 g/cm2 T-Score -2.1 Z-Score -0.5 SPINE L1-L4 Bone Mineral Density: 0.883 g/cm2 T-Score -1.5 Z-Score 0.4 World Health Organization (WHO) criteria for post-menopausal, Women: Normal: T-score at or above -1 SD Osteopenia: T-score between -1 and -2.5 SD Osteoporosis: T-score at or below -2.5 SD 10-Year Fracture Risk: FRAX 10-year Fracture Risk(1): Major Osteoporotic Fracture 17% Hip Fracture 2.7% IMPRESSION: According to World Health Organization criteria, classification is low bone mass (osteopenia) Followup recommended in two years or sooner as clinically warranted. Electronically signed by: DAVY GARCIA MD Normal [facility] Xray Bone Density, Dexa 1 or More Siteson 04-28-2022 DXA Bone [Mass/Area] Bone density Normal [facility] Work Phone: Medicare Annual Wellness Vis iton 04-06-2022 Medicare Annual Wellness Visit *Chief Complaint Pt here for 6 mo fu, rev labs, and MCW. States she had a mild rash that appeared in January but has not gone away since. Patient's skin is itchy and dry in these areas. History of Present Illness The patient is being seen for the subsequent annual wellness visit. Past Medical, Surgical and Family History: reviewed and updated in chart. Medications and Supplements: Review of all medications by a prescribing practitioner or clinical pharmacist (such as prescriptions, OTCs, herbal therapies and supplements) documented in the medical record. No, the patient is not using opioids. Patient Self Assessment of Health Status: good. Tobacco use: Non-User Alcohol use: Non-User Illicit drug use: Non-User Current diet: Heart Healthy Diet. Exercise Frequency: regularly. Depression/Suicide Screening: . Hearing Impairment: none. Cognitive Impairment: No cognitive impairment observed. Bathing: performs independently. Dressing: performs independently. Walking: performs independently. Managing Finances: performs independently. Shopping: performs independently. Managing Medications: performs independently. Housework / Basic Home Maintenance: performs independently. Falls Risk Screening:. KAMILA has not fallen in the last 6 months. Home safety risk factors: none. Advance directives:. Advanced Care Planning discussed and documented advance care plan or surrogate decision maker documented in the medical record. CHRONIC ABDOMINAL BLOATING WITH HEARTBURN ,CHRONIC DAILY NAUSEA .SAW SURGEON FOR CHRONIC ABDOMINAL PAIN AND CONSTIPATION WITH H/O ENDOMETRIAL AND CERVICAL CANCER, AND WAS DX WITH CHRONIC PARTIAL BOWEL OBSTRUCTION. SURGICAL OPTION WAS GIVEN TO PT , WHICH SHE DIDN'T CONSIDER. LAST COLONOSCOPY WAS IN 2012. ANXIETY PER PT ABDOMINAL PAIN IS EPIGASTRIC 4-6/10 ON AND OFF AND IS FOOD RELATED .HAS BP ELEVATION .SKIN RASH OF BOTH FOREARMS WITH MILD ITCHING ON AND OFF X SEVERAL MONTHS, NO PAIN. MEDICARE WELLNESS EXAM. Review of Systems Constitutional: not feeling poorly, no fever, no recent weight gain and no recent weight loss. Eyes: no blurred vision and no diplopia. ENT: no hearing loss, no tinnitus, no earache, no sore throat, no hoarseness and no swollen glands in the neck. Cardiovascular: no chest pain, no tightness or heavy pressure, no shortness of breath, no palpitations and no lower extremity edema. Respiratory: no cough, not coughing up sputum and no wheezing that is consistent with asthma. Gastrointestinal: no change in bowel habits, no diarrhea, no constipation, no bloody stools, no nausea, no vomiting, no abdominal pain, no signs and symptoms of ulcer disease, no jay colored stools, no intolerance to fatty foods and as noted in HPI. Genitourinary: no urinary frequency, no dysuria, no burning sensation during urination and no hematuria. Musculoskeletal: no arthralgias, no joint stiffness, no muscle weakness, no back pain and no difficulty walking. Skin: no rashes, no change in skin color and pigmentation, no skin lesions and no skin lumps. Neurological: no headaches, no dizziness, no seizures, no tingling, no numbness, no signs and symptoms of stroke and no limb weakness. Psychiatric: no confusion, no memory lapses or loss, no depression, no sleep disturbances and as noted in HPI. Endocrine: no goiter, no thyroid disorder, no diabetes mellitus, no excessive thirst, no dry skin, no cold intolerance, no heat intolerance and no increased urinary frequency. Hematologic/Lymphatic: is not slow to heal, does not bleed easily, does not bruise easily, no thrombophlebitis, no anemia and no history of blood transfusion. All other systems have been reviewed and are negative for complaint. *Active Problems Breast density (611.79) (R92.2) Colon cancer screening (V76.51) (Z12.11) Depression screening negative (V79.0) (Z13.31) Elevated blood pressure reading without diagnosis of hypertension (796.2) (R03.0) Encounter for screening mammogram for breast cancer (V76.12) (Z12.31) Fatigue (780.79) (R53.83) GERD (gastroesophageal reflux disease) (530.81) (K21.9) History of cervical cancer (V10.41) (Z85.41) 2011 History of endometrial cancer (V10.42) (Z85.42) 2011 Hypertriglyceridemia (272.1) (E78.1) Insomnia (780.52) (G47.00) Pap test, as part of routine gynecological examination (V76.2) (Z01.419) 09/16/2021: CoTest Negative 2017 Partial bowel obstruction (560.9) (K56.600) Pre-procedure lab exam (V72.63) (Z01.812) 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 Normal [employer] Tobacco Screening.on 022 Fall risk assessment a) No falls within the last year [facility] Work Phone: Tobacco use status [facility] b) No M [facility] Work Phone: Laboratory - Chemistry and C hemistry - challengeon 04-02-2022 Albumin BCP dye [Mass/Vol] 3.7 g/dL 3.4 - 5.0 [facility] Work Phone: ALP [Catalytic activity/Vol] 85 U/L 33 - 136 [facility] Work Phone: ALT With P-5'-P [Catalytic activity/Vol] 15 U/L 7 - 45 [facility] Work Phone: Comment on above: Patients treated wit h Sulfasalazine may generate falsely decreased results for ALT. Anion gap [Moles/Vol] 12 mmol/L 10 - 20 [facility] Work Phone: AST With P-5'-P [Catalytic activity/Vol] 18 U/L 9 - 39 [facility] Work Phone: Bilirubin [Mass/Vol] 0.3 mg/dL 0.0 - 1.2 [facility] Work Phone: [phone] Calcium [Mass/Vol] 8.7 mg/dL 8.6 - 10.3 [facility] Work Phone: Chloride [Moles/Vol] 111 mmol/L above high threshold 98 - 107 [facility] Work Phone: CO2 [Moles/Vol] 23 mmol/L 21 - 32 [facility] Work Phone: Creatinine [Mass/Vol] 0.64 mg/dL See Below [facility] Work Phone: Comment on above: Reference Range: 0.5 0 - 1.05 Glucose [Mass/Vol] 96 mg/dL 74 - 99 [facility] Work Phone: Potassium [Moles/Vol] 3.6 mmol/L 3.5 - 5.3 [facility] Work Phone: Protein [Mass/Vol] 6.1 g/dL below low threshold 6.4 - 8.2 [facility] Work Phone: Sodium [Moles/Vol] 142 mmol/L 136 - 145 [facility] Work Phone: Urea nitrogen [Mass/Vol] 15 mg/dL 6 - 23 [facility] Work Phone: No Panel Informationon 04-02 >90 >90 [facility] Work Phone: Comment on above: CALCULATIONS OF MANJULA MATED GFR ARE PERFORMED USING THE 2020 CKD-EPI STUDY REFIT EQUATION WITHOUT THE RACE VARIABLE FOR THE IDMS-TRACEABLE CREATININE METHODS.https://jasn.asnjournals.org/content/early// ASN.5266139438 ULTRASOUND LIMITED BREASTon 04-02-2022 ULTRASOUND LIMITED BREAST Patient Name: KAMILA PATEL STUDY: BREAST ULTRASOUND; 04/02/2022 10:30 am INDICATION: Six-month follow-up abnormal ultrasound COMPARISON: Ultrasound dated 10/01/2021 ACCESSION NUMBER(S): [id number] ORDERING CLINICIAN: STEVE AIKEN TECHNIQUE: Multiple grayscale ultrasonographic images were obtained through the left breast in the region of a prior ultrasonographic abnormality. FINDINGS: A dilated duct is again seen in the 9 o'clock retroareolar aspect of the left breast, similar to the prior study. There is no solid mass or asymmetry identified. IMPRESSION: No ultrasonographic evidence of malignancy.Recommendati on is for follow-up examination in 6 months with bilateral diagnostic mammogram. BI-RADS CATEGORY: Category: 3 - Probably Benign. Recommendation: 6 Month Follow-up. Electronically signed by: DAVY GARCIA MD [facility] Ultrasound Limited [place] 04-02-2022 MG Breast Screening Normal [facility] [address] Work Phone: Initial Visit (General Surge ry)on 12-10-2021 Initial Visit (General Surgery) Diagnoses/Problems H/O nausea and vomiting (V12.79) (Z87.898) Partial bowel obstruction (560.9) (K56.635) Provider Impressions Ms. Patel is a 66yo female with chronic intermittent episodes of abdominal pain, nausea and vomiting. I suspect that she has chronic partial bowel obstruction, likely from adhesions secondary to her previous pelvic radiation for cervical cancer. She is a relatively healthy 66 year old and a low risk surgical candidate. Therefore, we discussed the option of exploratory laparoscopy with lysis of adhesions, with the understanding that there is a good chance she would require laparotomy if these are dense adhesions, particularly since her sites of transition on the CT scan appear to be posterior and deep in the pelvis. We discussed possibility of nonresolution of pain and negative laparoscopy. We also discussed that while surgery can be used to lyse adhesions, surgery can also cause adhesions and she may have recurrent symptoms. We discussed the alternative of nonoperative management, understanding that if she ever had a complete obstruction we could operate at that time. She would like to think about this information. She is also considering getting a second opinion in [place], where she has more family support should she decide to go through with surgery. I will see her back on an as-needed basis. Chief Complaint Abdominal pain History of Present IllnessMs. Patel is a 66-year-old female seen at the request of Dr. Casillas for evaluation of abdominal pain. She has a history of cervical and endometrial cancer. She had external as well as transvaginal radiation in 2011. Since around 2013, she has had intermittent episodes of abdominal pain with associated distention and vomiting. Symptoms have become more frequent and more severe over the past couple years. Her estimates that she has about 3 episodes per month. These can last anywhere from 1 to several days. She also reports having audible gurgling in her abdomen at that time. She had a CT scan which showed a loop of small bowel that was dilated, with transition to a distal decompressed loops in the pelvis around the level of the sacral promontory, and a second area of transition also in the same vicinity in the pelvis. She is otherwise healthy and active. She has no cardiopulmonary disease. She is not on any blood thinners or antiplatelet agents. Her BMI is 20.5. Review of Systems Constitutional: no fever, sweats, and chills Cardiovascular: No chest pain or palpitations Respiratory: No cough or shortness of breath Gastrointestinal: +abdominal pain, bloating, nausea/vomiting, heartburn Genitourinary: no dysuria or urinary frequency Musculoskeletal: no weakness or swelling Integumentary: no rashes Neurological: no confusion Endocrine: no heat or cold intolerance Heme/Lymph: no easy bruising or bleeding Active Problems Breast density (611.79) (R92.2) Colon cancer screening (V76.51) (Z12.11) Depression screening negative (V79.0) (Z13.31) Elevated blood pressure reading without diagnosis of hypertension (796.2) (R03.0) Encounter for screening mammogram for breast cancer (V76.12) (Z12.31) Fatigue (780.79) (R53.83) GERD (gastroesophageal reflux disease) (530.81) (K21.9) H/O nausea and vomiting (V12.79) (Z87.898) History of cervical cancer (V10.41) (Z85.41) 2011 History of endometrial cancer (V10.42) (Z85.42) 2011 Hypertriglyceridemia (272.1) (E78.1) Insomnia (780.52) (G47.00) Pap test, as part of routine gynecological examination (V76.2) (Z01.419) 09/16/2021: CoTest Negative 2018 Partial bowel obstruction (560.9) (K56.600) Pre-procedure lab exam (V72.63) (Z01.812) 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) S/P total hysterectomy (V88.01) (Z90.710) Screening for hyperlipidemia (V77.91) (Z13.220) Vaginal Pap smear (V76.47) (Z12.72) Past Medical History H/O mammogram (V15.89) (Z92.89) CAT 2 History of uterine cancer (V10.42) (Z85.42) History of NVD (normal vaginal delivery) (650) (O80) [id number] _5# 14oz 02/19/1989_40weeks_Fema le_6# 10oz Pap test, as part of routine gynecological examination (V76.2) (Z01.419) 09/16/2021: CoTest Negative 2018 Surgical History History of Carpal tunnel surgery History of Colonoscopy Managed By: Naomy Casillas (Internal Medicine) History of Esophagogastroduodenosc opy History of Hysterectomy History of Tonsillectomy History of Tubal ligation Family History Family history of coronary artery disease (V17.3) (Z82.49) Family history of myocardial infarction (V17.3) (Z82.49) Family history of hypertension (V17.49) (Z82.49) Family history of leukemia (V16.6) (Z80.6) Family history of type 2 diabetes mellitus (V18.0) (Z83.3) Family history of myocardial infarction (V17.3) (Z82.49) Social History Denies alcohol consumption (V49.89) (Z78.9) Does not use illicit drugs (V49.89) (Z78.9) Never used tobacco (V49.89) (Z78.9) Patient has healthcare proxy and living will (more content not included)... 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 Discussed local referral she has an appoint with Dr. Ashlee Calvert tomorrow which she would like to keep to get her opinion however if she needed surgery she would prefer to go down to [facility] as she has 2 daughters in the area that would provide emotional and physical support for both her and her . Chief Complaint FUV in office today from CT scan. Patient is having some abdominal pain, bloating, nausea, heartburn. History of Present IllnessJanice is unfortunate 66-year-old female with longstanding history of chronic constipation beginning in adolescence. Had cervical, uterine cancer in 2012 underwent pelvic exoneration and then external and internal radiation therapy. Had colonoscopy last in 2011 shortly after hysterectomy. Underwent extensive GI work-up for intermittent nausea constipation diarrhea and persistent abdominal bloating and nausea. Work-up at [facility] with Dr. Frias was unremarkable including upper endoscopy, HIDA scan and gallbladder ultrasound. Last CT scan was performed in 2014. She is currently asymptomatic and not following with [facility] [facility] but sees Dr. Aiken annually most recent Pap test was unremarkable. She admits that if she eats high residue food she will feel bloated often has episodes of vomiting which occur maybe 3 times monthly she will feel bloated in her mid epigastric region have much of belching followed by vomiting of liquid material then concha diarrhea and symptoms harsh. She admits her last episode occurred after eating salad at [employer]. She denies any rectal bleeding or weight loss. Most recent labs including CBC, vitamin D level and chemistries were unremarkable other than a slightly low protein level. She is here today to review recent CT scan. Findings show area of transition with dilated nondilated small bowel loops and 2 loops anterior to the sacral prominence which is likely scar contrast does reach the colon. There is diffuse colonic feces indicating there is transit through the stricture. However there is a solid-appearing filling defect within the proximal dilated portion small bowel which may in decayed small intestinal bezoar. Findings reviewed with patient. Recommend surgical evaluation and resection. Discussed local referral she has an appoint with Dr. Ashlee Calvert tomorrow which she would like to keep to get her opinion however if she needed surgery she would prefer to go down to [facility] as she has 2 daughters in the area that would provide emotional and physical support for both her and her . Review of Systems Constitutional: no fever, no chills, not feeling tired and no recent weight loss. ENT: no lymphadenopathy. Cardiovascular: no shortness of breath and no chest pain. Respiratory: no cough. Gastrointestinal: as noted in HPI. Musculoskeletal: no joint swelling. Integumentary: no rashes, no skin lesions and was no jaundiced. All other systems have been reviewed and are negative for complaint. Active Problems Problems Breast density (611.79) (R92.2) Colon cancer screening (V76.51) (Z12.11) Depression screening negative (V79.0) (Z13.31) Elevated blood pressure reading without diagnosis of hypertension (796.2) (R03.0) Encounter for screening mammogram for breast cancer (V76.12) (Z12.31) Fatigue (780.79) (R53.83) GERD (gastroesophageal reflux disease) (530.81) (K21.9) H/O nausea and vomiting (V12.79) (Z87.898) History of cervical cancer (V10.41) (Z85.41) 2012 History of endometrial cancer (V10.42) (Z85.42) 2011 Hypertriglyceridemia (272.1) (E78.1) Insomnia (780.52) (G47.00) Pap test, as part of routine gynecological examination (V76.2) (Z01.419) 09/16/2021: CoTest Negative 2017 Pre-procedure lab exam (V72.63) (Z01.812) 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) S/P total hysterectomy (V88.01) (Z90.710) Screening for hyperlipidemia (V77.91) (Z13.220) Vaginal Pap smear (V76.47) (Z12.72) Past Medical History Problems H/O mammogram (V15.89) (Z92.89) CAT 2 History of NVD (normal vaginal delivery) (650) (O80) [id number] _5# 14oz 02/19/1989_40weeks_Fema le_6# 10oz Pap test, as part of routine gynecological examination (V76.2) (Z01.419) 09/16/2021: CoTest Negative 2017 Surgical History Problems History of Carpal tunnel surgery History of Colonoscopy Managed By: Naomy Casillas (Internal Medicine) History of Esophagogastroduodenosc opy History of Hysterectomy History of Tonsillectomy History of Tubal ligation Family History Mother Family history of coronary artery disease (V17.3) (Z82.49) Family history of myocardial infarction (V17.3) (Z82.49) Father Family history of hypertension (V17.49) (Z82.49) Family history of leukemia (V16.6) (Z80.6) Sister Family history of type 2 diabetes mellitus (V18.0) ( (more content not included)... Normal [facility] CT ABDOMEN AND PELVIS W IV C [facility] 12-04-2021 CT ABDOMEN AND PELVIS W IV CONTRAST Patient Name: KAMILA PATEL STUDY: CT ABDOMEN AND PELVIS W IV CONTRAST; ; 12/04/2021 2:26 pm INDICATION: Cyclic vomiting, epigastric abdominal pain, radiation enteritis K52.0: Radiation enteritis. COMPARISON: None. ACCESSION NUMBER(S): [id number] ORDERING CLINICIAN: NAOMY CASILLAS TECHNIQUE: Imaging was performed from dome of the diaphragm through ischial tuberosities with axial, coronal and sagittal images reconstructed. Patient received 75 mL Omnipaque 350 intravenously. Patient also received positive oral contrast prior to the exam FINDINGS: A few nodules are present bilaterally measuring 3 mm or less, requiring no specific follow-up. No acute infiltrates are present. No pleural effusions are noted. The visualized heart appears normal in size. No mass is noted in the liver. There is no intra or extrahepatic biliary dilatation. Gallbladder is normal in appearance. No mass or inflammation is noted involving the pancreas. There appear to be separate dorsal and ventral pancreatic ducts consistent with pancreas divisum. Spleen is normal in size with no focal mass noted. Adrenal glands appear normal. Kidneys enhance symmetrically with no hydronephrosis noted. Stomach and duodenum are decompressed. A segment of mid small bowel is dilated with contrast present and several filling defects, either un digested bowl food material or fecal like material. The largest filling defect has a laminated density appearance and is about 2.2 cm diameter. The bowel wall does not appear thickened. There is a transition zone between dilated and nondilated small bowel anterior to the sacral promontory followed by a shorter segment of more mildly dilated small bowel and a secondary transition which is also in the vicinity of the sacral promontory. More distal small bowel is nondilated and contrast extends to the ileocecal junction with a small amount of mixing with colonic feces in the cecum. There is diffuse colonic feces with no colonic dilatation. Appendix is not identified. No ascites, pneumoperitoneum or mesenteric inflammation is identified. Aorta and vena cava are normal in size. There are no pathologically enlarged retroperitoneal, iliac or inguinal lymph nodes identified. Urinary bladder is normal in appearance with no evidence of stone or mass. The uterus is absent. Ovaries are not identified. No abdominal wall hernia is identified. Grade 1 anterolisthesis at L5-S1 is associated with severe facet arthropathy but no spondylolysis. L3-4 and L4-5 discs are severely narrowed with associated endplate degenerative change. L2-3 degenerative disc and endplate changes are slightly less severe. There is also severe degenerative disc and endplate change T10-11 level. The no metastatic osseous lesions are detected. The. IMPRESSION: There are areas of transition between dilated and nondilated small bowel in 2 closely adjacent loops anterior to the sacral promontory which is most likely secondary to scar from the patient's cancer treatment. Contrast does reach the colon and the patient has diffuse colonic feces indicating that there is transit. However there are solid-appearing filling defects in the more proximal dilated portion of small bowel which could represent small intestinal bezoars. No metastatic disease is detected. Pancreatic ductal anatomy appears to vary from most common type, in the spectrum of a pancreatic divisum. Electronically signed by: TESS VIGIL MD, KANE Normal [facility] CT Abdomen and Pelvis with I V Contraston 12-04-2021 CT Abdomen and Pelvis W contrast IV Normal [employer] Work Phone: Laboratory - Chemistry and C hemistry - challengeon 11-30-2021 Anion gap [Moles/Vol] 8 mmol/L below low threshold 10 - 20 [facility] [employer] Work Phone: Calcium [Mass/Vol] 8.7 mg/dL 8.6 - 10.3 [employer] [employer] Work Phone: Chloride [Moles/Vol] 113 mmol/L above high threshold 98 - 107 [employer] [place] [employer] Work Phone: CO2 [Moles/Vol] 25 mmol/L 21 - 32 [facility] centerBuyItRideItSaint [facility] [employer] Work Phone: Creatinine [Mass/Vol] 0.69 mg/dL See Below [facility] centerBuyItRideItSaint [facility] [employer] Work Phone: Comment on above: Reference Range: 0.5 0 - 1.05 Glucose [Mass/Vol] 94 mg/dL 74 - 99 [place] [employer] Work Phone: Potassium [Moles/Vol] 3.9 mmol/L 3.5 - 5.3 [facility] [employer] Work Phone: Sodium [Moles/Vol] 142 mmol/L 136 - 145 [place] [employer] Work Phone: Urea nitrogen [Mass/Vol] 13 mg/dL 6 - 23 [employer] [facility] Work Phone: No Panel Informationon 11-30 >90 >90 [employer] [facility] log[facility]It[facility]ideIt[facility] Work Phone: Comment on above: CALCULATIONS OF MANJULA MATED GFR ARE PERFORMED USING THE 2020 CKD-EPI STUDY REFIT EQUATION WITHOUT THE RACE VARIABLE FOR THE IDMS-TRACEABLE CREATININE METHODS.https://jasn.asnjournals.org/content/early// ASN.5336486100 Initial Visit (Gastroenterol ogy)on 11-26-2021 Initial Visit (Gastroenterology) Diagnoses/Problems Assessed 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 : No Radiologist to Determine Optimal Study : Y What are the patient's signs and symptoms? : Cyclic vomiting, epigastric abdominal pain, radiation enteritis Provider Impressions Suspect radiation enteritis with intermittent small bowel obstruction. Recommend CT abdomen pelvis continue low residue diet follow-up after same may need repeat EGD and colonoscopy obtain records from [facility] work-up in 2014 prior to follow-up visit Chief Complaint NPV in office today for nausea and vomiting, epigastric pain patient is taking Prilosec in the past patient is currently using Tums and Pepto Bismol states that PPI's have not helped in the past. Previous GI was Dr. Corrales at [facility] in [place] prior EGD in 2014, Ct scan, Ultrasound. Last colonoscopy with JULES in 2012. Prior history of cervical and endometrial cancer. Patient had internal and external radiation in 2011. Adult Risk ScreeningAdult Risk Screening_UH: Initial Fall Risk Screening: KAMILA has not fallen in the last 6 months. KAMILA does not have a fear of falling. She does not need assistance with sitting, standing or walking. Does not need assistance walking in her home. She does not need assistance in an unfamiliar setting. The patient is not using an assistive device. Living Will. Living Will: Living will on file. Healthcare POA: Health care proxy on file. Tobacco Screening: Has not used tobacco in the past 6 months. Domestic Violence Screen: Does not feel threatened or abused physically, emotionally or sexually. Do you feel UNSAFE? The patient feels safe in the home. The patient is comfortable filling out medical forms. History of Present Illness Kamila is unfortunate 66-year-old female with longstanding history of chronic constipation beginning in adolescence. Had cervical, uterine cancer in 2012 underwent pelvic exoneration and then external and internal radiation therapy. Had colonoscopy last in 2011 shortly after hysterectomy. Underwent extensive GI work-up for intermittent nausea constipation diarrhea and persistent abdominal bloating and nausea. Work-up at [facility] with Dr. Frias was unremarkable including upper endoscopy, HIDA scan and gallbladder ultrasound. Last CT scan was performed in 2014. She is currently asymptomatic and not following with [employer] but sees Dr. Aiken annually most recent Pap test was unremarkable. She admits that if she eats high residue food she will feel bloated often has episodes of vomiting which occur maybe 3 times monthly she will feel bloated in her mid epigastric region have much of belching followed by vomiting of liquid material then concha diarrhea and symptoms harsh. She admits her last episode occurred after eating salad at [employer]. She denies any rectal bleeding or weight loss. Most recent labs including CBC, vitamin D level and chemistries were unremarkable other than a slightly low protein level. Review of Systems Constitutional: no fever, no chills, not feeling tired and no recent weight loss. ENT: no lymphadenopathy. Cardiovascular: no shortness of breath and no chest pain. Respiratory: no cough. Gastrointestinal: as noted in HPI. Musculoskeletal: no joint swelling. Integumentary: no rashes, no skin lesions and was no jaundiced. All other systems have been reviewed and are negative for complaint. Active Problems Problems Breast density (611.79) (R92.2) Colon cancer screening (V76.51) (Z12.11) Depression screening negative (V79.0) (Z13.31) Elevated blood pressure reading without diagnosis of hypertension (796.2) (R03.0) Encounter for screening mammogram for breast cancer (V76.12) (Z12.31) Fatigue (780.79) (R53.83) GERD (gastroesophageal reflux disease) (530.81) (K21.9) H/O nausea and vomiting (V12.79) (Z87.898) History of cervical cancer (V10.41) (Z85.41) 2011 History of endometrial cancer (V10.42) (Z85.42) 2011 Hypertriglyceridemia (272.1) (E78.1) Insomnia (780.52) (G47.00) Pap test, as part of routine gynecological examination (V76.2) (Z01.419) 09/16/2021: CoTest Negative 2017 S/P total hysterectomy (V88.01) (Z90.710) Screening for hyperlipidemia (V77.91) (Z13.220) Vaginal Pap smear (V76.47) (Z12.72) Past Medical History Problems H/O mammogram (V15.89) (Z92.89) CAT 2 History of NVD (normal vaginal delivery) (650) (O80) [id number] _5# 14oz 02/19/1989_40weeks_Fema le_6# 10oz Pap test, as part of routine gynecological examination (V76.2) (Z01.419) 09/16/2021: CoTest Negative 2017 Surgical History Problems History of Carpal tunnel surgery Histo (more content not included)... Normal Touchworks Office Visit (Internal Medic ine)on 10-06-2021 Follow-up visit Diagnoses/Problems Assessed Fatigue (780.79) (R53.83) Insomnia (780.52) (G47.00) Hypertriglyceridemia (272.1) (E78.1) Depression screening negative (V79.0) (Z13.31) Patient Discussion/Summary 6 MON [facility] Provider Impressions TEST RESULTS WERE DISCUSSED. ADVISED TO FOLLOW THE LOW FAT, LOW CALORIE, HIGH PROTEIN DIET AND TO EAT SMALLER PORTIONS MORE FREQUENT SERVINGS. ADVISED FOR REGULAR DAILY EXERCISE . ADVISED TO AVOID TAKING NAPS DURING THE DAY TIME AND TO CUT DOWN ON CAFFEINE. ADVISED TO START OTC MELATONIN 1 MG Q HS AND TO INCREASE IT BY 0.5 MG Q WEEK FOR MAXIMUM OF 4 MG Q HS PRN. Chief Complaint 3 WEEK FU WITH LABS. PATIENT HAS NO CONCERNS. History of Present IllnessLAB F/U. COMPLAINS OF CHRONIC FATIGUE AND INSOMNIA.IS SUPPOSED TO DO F/U U/S OF L BREAST BY [employer] FOR ABNORMAL MAMMO. Review of Systems Constitutional: not feeling poorly, no fever, no recent weight gain, no recent weight loss and as noted in HPI. Eyes: no blurred vision and no diplopia. ENT: no hearing loss, no tinnitus, no earache, no sore throat, no hoarseness and no swollen glands in the neck. Cardiovascular: no chest pain, no tightness or heavy pressure, no shortness of breath, no palpitations and no lower extremity edema. Respiratory: no cough, not coughing up sputum and no wheezing that is consistent with asthma. Gastrointestinal: no change in bowel habits, no diarrhea, no constipation, no bloody stools, no nausea, no vomiting, no abdominal pain, no signs and symptoms of ulcer disease, no jay colored stools and no intolerance to fatty foods. Genitourinary: no urinary frequency, no dysuria, no burning sensation during urination and no hematuria. Musculoskeletal: no arthralgias, no joint stiffness, no muscle weakness, no back pain and no difficulty walking. Skin: no rashes, no change in skin color and pigmentation, no skin lesions and no skin lumps. Neurological: no headaches, no dizziness, no seizures, no tingling, no numbness, no signs and symptoms of stroke and no limb weakness. Psychiatric: no confusion, no memory lapses or loss, no depression, no sleep disturbances and as noted in HPI. Endocrine: no goiter, no thyroid disorder, no diabetes mellitus, no excessive thirst, no dry skin, no cold intolerance, no heat intolerance and no increased urinary frequency. Hematologic/Lymphatic: is not slow to heal, does not bleed easily, does not bruise easily, no thrombophlebitis, no anemia and no history of blood transfusion. All other systems have been reviewed and are negative for complaint. Active Problems Problems Breast density (611.79) (R92.2) Colon cancer screening (V76.51) (Z12.11) Elevated blood pressure reading without diagnosis of hypertension (796.2) (R03.0) Encounter for screening mammogram for breast cancer (V76.12) (Z12.31) Fatigue (780.79) (R53.83) GERD (gastroesophageal reflux disease) (530.81) (K21.9) H/O nausea and vomiting (V12.79) (Z87.898) History of cervical cancer (V10.41) (Z85.41) 2011 History of endometrial cancer (V10.42) (Z85.42) 2011 Pap test, as part of routine gynecological examination (V76.2) (Z01.419) 09/16/2021: CoTest Negative 2017 S/P total hysterectomy (V88.01) (Z90.710) Screening for hyperlipidemia (V77.91) (Z13.220) Vaginal Pap smear (V76.47) (Z12.72) Past Medical History Problems H/O mammogram (V15.89) (Z92.89) CAT 2 History of NVD (normal vaginal delivery) (650) (O80) [id number] _5# 14oz 02/19/1989_40weeks_Fema le_6# 10oz Pap test, as part of routine gynecological examination (V76.2) (Z01.419) 09/16/2021: CoTest Negative 2017 Surgical History Problems History of Carpal tunnel surgery History of Colonoscopy Managed By: Naomy Casillas (Internal Medicine) History of Esophagogastroduodenosc opy History of Hysterectomy History of Tonsillectomy History of Tubal ligation Family History Mother Family history of coronary artery disease (V17.3) (Z82.49) Family history of myocardial infarction (V17.3) (Z82.49) Father Family history of hypertension (V17.49) (Z82.49) Family history of leukemia (V16.6) (Z80.6) Sister Family history of type 2 diabetes mellitus (V18.0) (Z83.3) Brother Family history of myocardial infarction (V17.3) (Z82.49) Social History Problems Denies alcohol consumption (V49.89) (Z78.9) Does not use illicit drugs (V49.89) (Z78.9) Never used tobacco (V49.89) (Z78.9) Patient has healthcare proxy and living will (V49.89) (Z78.9) Allergies Medication No Known Drug Allergies Recorded By: Elyssa Ortiz; 06/16/2020 11:15:02 AM Current Meds Medication NameInstruction Acidophilus Probiotic Blend Oral CapsuleTAKE 1 CAPSULE Daily Hodan CAPS Biotin TABSTAKE 1 TABLET DAILY. Multi Vitamin TABSTAKE 1 TABLET DAILY. Vitals Vital Signs Recorded: 06Oct2021 10:31AM Heart Rate78 Gabxlrag915 Jyhellyby22 Height5 ft Oleiuq524 lb 7 oz BMI Skilpqoskt54.37 BSA Calculated1.44 Tobacco Useb) No (more content not included)... Normal Gear6 Tobacco Screening.on 022 Fall risk assessment a) No falls within the last year [facility] Work Phone: [phone] Tobacco use status CPHS b) No [facility] Work Phone: Complete Blood Count + Diffe cashon 10-01-2021 Basophils/100 WBC (Bld) 1.6 % 0.0 - 2.0 [facility] Work Phone: [phone] Erythrocyte distribution width (RBC) [Ratio] 12.9 % See Below [facility] Work Phone: Comment on above: Reference Range: 11. 5 - 14.5 Hematocrit (Bld) [Volume fraction] 41.7 % See Below [facility] Work Phone: Comment on above: Reference Range: 36. 0 - 46.0 Hemoglobin (Bld) [Mass/Vol] 13.7 g/dL See Below [facility] Work Phone: [phone] Comment on above: Reference Range: 12. 0 - 16.0 Lymphocytes/100 WBC (Bld) 42.1 % See Below [facility] Work Phone: [phone] Comment on above: Reference Range: 13. 0 - 44.0 MCHC (RBC) [Mass/Vol] 32.8 g/dL See Below [facility] Work Phone: [phone] Comment on above: Reference Range: 32. 0 - 36.0 MCV (RBC) [Entitic vol] 96 fL 80 - 100 [facility] Work Phone: [phone] Monocytes/100 WBC (Bld) 7.4 % 2.0 - 10.0 [facility] Work Phone: [phone] Neutrophils/100 WBC (Bld) 37.2 % See Below [facility] Work Phone: [phone] Comment on above: Reference Range: 40. 0 - 80.0 Platelets (Bld) [#/Vol] 288 10*3/uL 150 - 450 [facility] Work Phone: [phone] RBC (Bld) [#/Vol] 4.33 {x10E12/L} See Below [facility] Work Phone: [phone] Comment on above: Reference Range: 4.0 0 - 5.20 WBC (Bld) [#/Vol] 6.1 10*3/uL 4.4 - 11.3 [facility] Work Phone: [phone] Complete Blood Count + Differential 0.10 {x10E9/L} See Below [facility] Work Phone: Comment on above: Reference Range: 0.0 0 - 0.10 Complete Blood Count + Differential 0.70 {x10E9/L} See Below [facility] Work Phone: Comment on above: Reference Range: 0.0 0 - 0.70 Complete Blood Count + Differential 0.50 {x10E9/L} See Below [facility] Work Phone: Comment on above: Reference Range: 0.1 0 - 1.00 Complete Blood Count + Differential 2.60 {x10E9/L} See Below [facility] Work Phone: Comment on above: Reference Range: 1.2 0 - 4.80 Complete Blood Count + Differential 2.30 {x10E9/L} See Below [facility] Work Phone: Comment on above: Reference Range: 1.2 0 - 7.70 Percent differential counts (%) should be interpreted in the context of the absolute cell counts (cells/L). Complete Blood Count + Differential 11.7 % 0.0 - 6.0 [facility] Work Phone: Laboratory - Chemistry and C hemistry - challengeon 10-01-2021 Albumin BCP dye [Mass/Vol] 3.7 g/dL 3.4 - 5.0 [facility] Work Phone: ALP [Catalytic activity/Vol] 68 U/L 33 - 136 [facility] Work Phone: ALT With P-5'-P [Catalytic activity/Vol] 14 U/L 7 - 45 [facility] Work Phone: Comment on above: Patients treated wit h Sulfasalazine may generate falsely decreased results for ALT. Anion gap [Moles/Vol] 10 mmol/L 10 - 20 [facility] Work Phone: AST With P-5'-P [Catalytic activity/Vol] 18 U/L 9 - 39 [facility] Work Phone: Bilirubin [Mass/Vol] 0.3 mg/dL 0.0 - 1.2 [facility] Work Phone: [phone] Calcium [Mass/Vol] 8.8 mg/dL 8.6 - 10.3 [facility] Work Phone: Chloride [Moles/Vol] 111 mmol/L above high threshold 98 - 107 [facility] Work Phone: CO2 [Moles/Vol] 26 mmol/L 21 - 32 [facility] Work Phone: Creatinine [Mass/Vol] 0.74 mg/dL See Below [facility] Work Phone: Comment on above: Reference Range: 0.5 0 - 1.05 Glucose [Mass/Vol] 89 mg/dL 74 - 99 [facility] Work Phone: Potassium [Moles/Vol] 3.9 mmol/L 3.5 - 5.3 [facility] Work Phone: Protein [Mass/Vol] 5.9 g/dL below low threshold 6.4 - 8.2 [facility] Work Phone: Sodium [Moles/Vol] 143 mmol/L 136 - 145 [facility] Work Phone: Urea nitrogen [Mass/Vol] 10 mg/dL 6 - 23 [facility] Work Phone: Lipid Panelon 10-01-2021 Cholesterol [Mass/Vol] 149 mg/dL 0 - 199 [facility] Work Phone: Comment on above: . AGE DESIRABLE BORD YONY HIGH HIGH 0-19 Y 0 - 169 170 - 199 >/= 200 20-24 Y 0 - 189 190 - 224 >/= 225 >24 Y 0 - 199 200 - 239 >/= 240 All ranges are based on fasting samples. Specific therapeutic targets will vary based on patient-specific cardiac risk.. Pediatric guidelines reference:Pediatrics 2011, 128(S5). Adult guidelines reference: NCEP ATPIII Guidelines, DOM 2001, 258:2486-97. Venipuncture immediately after or during the administration of Metamizole may lead to falsely low results. Testing should be performed immediately prior to Metamizole dosing. Cholesterol in HDL [Mass/Vol] 45.0 mg/dL [facility] Work Phone: Comment on above: . AGE VERY LOW LOW N ORMAL HIGH 0-19 Y < 35 < 40 40-45 ---- 20-24 Y ---- < 40 >45 ---- >24 Y ---- < 40 40-60 >60. Cholesterol in LDL [Mass/Vol] 74 mg/dL 0 - 99 [facility] Work Phone: Comment on above: . NEAR BORD AGE ADRI RABLE OPTIMAL HIGH HIGH VERY HIGH 0-19 Y 0 - 109 --- 110-129 >/= 130 ---- 20-24 Y 0 - 119 --- 120-159 >/= 160 ---- >24 Y 0 - 99 100-129 130-159 160-189 >/=190. Cholesterol.total/Mimi sterol in HDL [Mass ratio] 3.3 {ratio} [facility] Work Phone: Comment on above: REF VALUESDESIRABLE < 3.4HIGH RISK > 5.0 Triglyceride [Mass/Vol] 151 mg/dL above vt gh threshold 0 - 149 [facility] Work Phone: Comment on above: . AGE DESIRABLE BORD YONY HIGH HIGH VERY HIGH 0 D-90 D 19 - 174 ---- ---- ----91 D- 9 Y 0 - 74 75 - 99 >/= 100 ---- 10-19 Y 0 - 89 90 - 129 >/= 130 ---- 20-24 Y 0 - 114 115 - 149 >/= 150 ---- >24 Y 0 - 149 150 - 199 200- 499 >/= 500. Venipuncture immediately after or during the administration of Metamizole may lead to falsely low results. Testing should be performed immediately prior to Metamizole dosing. Lipid Panel 30 mg/dL 0 - 40 [facility] Work Phone: Magnesium, Serumon 2 Magnesium [Mass/Vol] 2.07 mg/dL See Below [facility] Work Phone: Comment on above: Reference Range: 1.6 0 - 2.40 No Panel Informationon 10-01 89 {mL/min/1.73m2} >90 [facility] Work Phone: Comment on above: CALCULATIONS OF MANJULA MATED GFR ARE PERFORMED USING THE 2020 CKD-EPI STUDY REFIT EQUATION WITHOUT THE RACE VARIABLE FOR THE IDMS-TRACEABLE CREATININE METHODS.https://jasn.asnjournals.org/content/early/ ASN.3835849164 TSH - Thyroid Stimulating Ho rmone, Serumon 10-01-2021 TSH Qn 1.35 m[IU]/L See Below [facility] Internal [facility] Work Phone: Comment on above: Reference Range: 0.4 4 - 3.98 TSH testing is performed using different testing methodology at [facility] than at other [facility]. Direct result comparisons should only be made within the same method. Ultrasound Limited [place] 10-01-2021 MG Breast Screening [facility] [address] Work Phone: Zinc, Serumon 10-01-2021 Zinc [Mass/Vol] 70 ug/dL 44-115 [facility] [place] Internal [facility] Work Phone: Comment on above: Detection Limit = 5T est(s) 061279-Ceub, Plasma or Serumwas developed and its performance characteristics determinedby [employer]. It has not been cleared or approved by the Foodand Drug Administration. Mamm - Screening Mammogram w / Tomosynthesison 09-21-2021 MG Breast Screening Normal [facility] [address] Work Phone: Laboratory - Cytologyon 08-30 Cytology report Cyto stain.thin prep Doc (Cvx/Vag) [facility] [address] Work Phone: SPEECH THERAPIST - Office Visiton 08-30 SPEECH THERAPIST - Office Visit Diagnoses/Problems Assessed Encounter for screening mammogram for breast cancer (V76.12) (Z12.31) Pap test, as part of routine gynecological examination (V76.2) (Z01.419) 2018 Vaginal Pap smear (V76.47) (Z12.72) Orders Mamm - Screening Mammogram w/ Tomosynthesis; Status:Hold For - Scheduling; Requested for:16Sep2021; Radiologist to Determine Optimal Study : Y What are the patient's signs and symptoms ? 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 Annual 2. Screening mammogram 3. History of endometrial and cervical cancer Follow-up in 2 years or as needed. Chief Complaint New Patient is here for her yearly exam and pap test. Hysterectomy in 2011 d/t endometrial and cervical cancer. Patient does self breast exams and has no concerns at this time. History of Present IllnessPresents for annual exam. She voices no complaints and is doing well. Denies any bowel or bladder problems. Denies any breast problems. She had previous hysterectomy for endometrial and cervical cancer. Review of Systems Review of Systems: Constitutional: No fever or chills Respiratory: No shortness of breath, or cough Cardiovascular: No chest pain or syncope Breasts: No breast pain, no masses, no nipple discharge Gastrointestinal: No nausea, vomiting, or diarrhea, no abdominal pain Genitourinary: No dysuria or frequency Gynecology: Negative except as noted in history of present illness All other: All other systems reviewed and negative for complaint Active Problems Problems Colon cancer screening (V76.51) (Z12.11) Elevated blood pressure reading without diagnosis of hypertension (796.2) (R03.0) Encounter for screening mammogram for breast cancer (V76.12) (Z12.31) Fatigue (780.79) (R53.83) GERD (gastroesophageal reflux disease) (530.81) (K21.9) H/O abdominal pain (V13.89) (Z87.898) H/O nausea and vomiting (V12.79) (Z87.898) History of cervical cancer (V10.41) (Z85.41) 2011 History of endometrial cancer (V10.42) (Z85.42) 2011 Pap test, as part of routine gynecological examination (V76.2) (Z01.419) 2017 S/P total hysterectomy (V88.01) (Z90.710) Screening for hyperlipidemia (V77.91) (Z13.220) Vaginal Pap smear (V76.47) (Z12.72) Past Medical History Problems H/O mammogram (V15.89) (Z92.89) CAT 2 History of NVD (normal vaginal delivery) (650) (O80) 58-72-4874_80qwugj_Dlfq _5# 14oz 02/19/1989_40weeks_Fema le_6# 10oz Surgical History Problems History of Carpal tunnel surgery History of Colonoscopy Managed By: Naomy Casillas (Internal Medicine) History of Esophagogastroduodenosc opy History of Hysterectomy History of Tonsillectomy History of Tubal ligation Family History Mother Family history of coronary artery disease (V17.3) (Z82.49) Family history of myocardial infarction (V17.3) (Z82.49) Father Family history of hypertension (V17.49) (Z82.49) Family history of leukemia (V16.6) (Z80.6) Sister Family history of type 2 diabetes mellitus (V18.0) (Z83.3) Brother Family history of myocardial infarction (V17.3) (Z82.49) Social History Problems Denies alcohol consumption (V49.89) (Z78.9) Does not use illicit drugs (V49.89) (Z78.9) Never used tobacco (V49.89) (Z78.9) Patient has healthcare proxy and living will (V49.89) (Z78.9) Allergies Medication No Known Drug Allergies Recorded By: Elyssa Ortiz; 06/16/2020 11:15:02 AM Current Meds Medication NameInstruction Acidophilus Probiotic Blend Oral CapsuleTAKE 1 CAPSULE Daily Biotin TABSTAKE 1 TABLET DAILY. Multi Vitamin TABSTAKE 1 TABLET DAILY. ZyrTEC Allergy 10 MG Oral Capsule Vitals Vital Signs Recorded: 16Sep2021 10:32AM Oyjzrlnz696 Haetlrlxa72 Height5 ft Hjckhl64.8 kg BMI Wnmrgmxnkh14.44 kg/m2 BSA Calculated1.45 Tobacco Useb) No Fall Screeninga) No falls within the last year LMPHysterectomy 2011 Physical Exam PHYSICAL EXAMINATION: Well-developed, well nourished, in no acute distress, alert and oriented x three, is pleasant and cooperative. HEENT: Clear. Pupils equal, round and reactive to light and accommodation. Extraocular muscles are intact. Oral mucosa pink without exudate. NECK: No lymphadenopathy, no thyromegaly. BREASTS: Symmetric, no palpable masses. No nipple discharge or retraction. LUNGS: Clear bilaterally. HEART: Regular rate and rhythm without murmurs. ABDOMEN: Normoactive bowel sounds, soft and nontender, no guarding or rebound tenderness, no CVA tenderness. EXTREMITIES: No clubbing, cyanosis or edema. NEUROLOGIC: Cranial nerves II-XII grossly intact. : Normal external female genitalia. Normal vulva and vagina. Normal urethral meatus, urethra and bladder. Noted surgical absence of the cervi (more content not included)... Normal Gear6 Tobacco Screening.on 022 Fall risk assessment a) No falls within the last year [facility] [address] [employer] Phone: Last menstrual period start date Hysterectomy 2011 [facility] [employer] Phone: Tobacco use status [facility] b) No [facility] [address] Work Phone: Tobacco Screening.on 022 Adult depression screening assessment No [facility] Internal Medicine Work Phone: Fall risk assessment a) No falls within the last year [facility] Internal Medicine Work Phone: Tobacco use status [facility] b) No M [facility] Internal Medicine Work Phone: CNCOon 12-26-2017 CNCO Letter TextPeter Bridget marcus M.D.Gynecologic OncologyTara Ville [address]Phone: Fax:[phone] [address] [facility] [address]FSN#: [id number] Ms. Patel:I am pleased to report that the results of your mammogram on 12/01/2017 showedno evidence of malignancy. Your next mammogram is recommended in one year.If you have any further questions please feel free to give me a call.Sincerely,[place] Brand M.D. [facility] Mamm Screen w/CAD if perf ormed bilaton 12-01-2017 MA Mamm Screen w/CAD if performed bilat Exam Date/Time:12/01/2017 10:45 EDTReason for Exam:SCREENINGReportSTU DY:MA Mamm Screen w/CAD if performed bilat; 12/01/2017 10:45 amACCESSION NUMBER(S):[id number] CLINICIAN:Indiana BrandINDICATION:Screenin g.COMPARISON:12/08/2015 , 06/06/2015, 09/26/2014, 09/06/2013FINDINGS:Ther e are areas of scattered fibroglandular tissue. No suspicious masses or calcifications are identified. Slight asymmetric parenchyma is present, in the medial portion of the right breast on the CC projection, but this is considered to be overlapping breast parenchyma. Benign calcifications are seen bilaterally.IMPRESSION: No mammographic evidence of malignancy.BI-RADS CATEGORY:Category: 2 - Benign Finding.Recommendation: Normal Interval Follow-up, Over Age 40.Recall Interval: 12 Months.Breast Density: Scattered Fibroglandular Density.For any future breast imaging appointments, please call [phone]). FINAL REPORT Dictated: 12/01/2017 2:54 pm Roberto Sellers MDigned (Electronic Signature): 12/01/2017 2:54 pmSigned by: Roberto Sellers MD Technologist: CECAssessment: BI-RADS Category 2-Benign findingRecommendation: Normal interval follow-up Normal [facility] CNOVon 11-25-2017 CNOV Office Visit (GYNML) KAMILA ELAINE CH ([id number]) 1955 FDate Time Provider Department11/25/17 2:10 PM IND[place] BRAND GYNML During your visit today, we recorded the following information about you: Temperature Pulse Blood pressure Weight 98.3 degrees 81/minute 137/81 51.6 kgPeter Reji Brand MD 11/25/2017 5:36 PM [facility] VisitRe: Kamila Beck[place] [facility] # [id number] of Service - 11/25/2017Atiya Ochoa Janice returns for follow up of her Stage II (2008) grade 3 endometrial cancer(2 separate tumors in uterus) with LVSI in cervical lesion - negative LNs.Briefly, she is a 62 year old female A1 with a history of migraines. InJuly [address] Abraham for second opinion regarding apossible hysterectomy. Prior to this she was diagnosed with endometrialhyperplasia by her machine container washer and was started on progesterone. A secondbiopsy was negative. She also has an enlarged uterus with large uterinefibroids. She was told that the size of her uterus was close to 20 weeks. Shestated at that time that she is very active physically and sexually with herhusband and would like to avoid a hysterectomy if at all possible unless thiscould be performed laparoscopically. Dr. Abraham discussed possibletreatment options including robotic hysterectomy, oral hormonal agents orMirena IUD. On 07/27/2011 she underwent a hysteroscopy with CRISTIAN with pathologydemonstrating FIGO Grade 1 endometrial adenocarcinoma.SURGERY: 08/18/2011Exploratory laparotomy, total abdominal hysterectomy with bilateralsalpingo-oopho rectomy and bilateral pelvic and para-aortic lymphadenectomy,cystosc opy, intraoperative consultation with Dr. Suh for right ureteralstent placementHISTOLOGIC TYPE: Endometrioid adenocarcinoma.TUMOR SIZE: 0.6cm (FIGO grade 3 tumor in isthmus), 0.3cm (largest focus ofFIGO grade 1 tumor in fundus)HISTOLOGIC GRADE: FIGO grade 3 in the isthmus, and FIGO grade 1 in thefundus.MYOMETRIAL INVASION: In the isthmus the invasion is 5 millimeters out of atotal myometrial thickness of 9 millimeters (55%). No invasion is presentin the fundic carcinoma.INVOLVEMENT OF CERVIX: Uninvolved.LYMPH-VASCUL AR INVASION: Present.0/15 pelvic lymph nodes, 0/10 para-aortic lymph nodes demonstrated metastasis.PATHOLOGY:PE LVIC WASHING - Negative for malignant cellsTISSUE PATHOLOGY [facility] REVIEWEndometrium: Two separate foci of endometrial adenocarcinoma (see comment);- Endometrial adenocarcinoma, endometrioid type, FIGO grade 3, arising inregion of the isthmus (see comment).- Endometrial adenocarcinoma, endometrioid type, FIGO grade 1 arising in abackground of atypical complex hyperplasia, involving the fundus and consistentwith a second focus/primary (see comment).Myometrium:- At the isthmus, the endometrial adenocarcinoma, endometrioid type, FIGO grade3, invades to a depth of 5 mm of a total isthmus myometrial thickness of 9 mm(55%) with a focus of lymphovascular invasion present at a depth slightlybeyond the greatest depth of invasion.-No evidence of myometrial invasion in the fundic endometrialadenocarcino ma, endometrioid type, FIGO grade 1.Right and left fallopian tubes and ovaries, right and left pelvic andpara-aortic lymph nodes negative for malignancy. Cervical involvement: Notpresent. The cervix is uninvolved. Invasion of lower uterine segment ispresent. The endocervix is uninvolved.COMMENTThe two adenocarcinomas may represent two independent primaries in the isthmusand fundus. The possibility of dedifferentiation of a the low gradeendometrial adenocarcinoma in the fundus to a high grade cannot be excludedRADIATION THERAPYPelvic: 10/04/11 to 11/08/11 - 4500 cGy in 25 fractions.Vaginal brachytherapy 11/14, 11/21, 11/29/2011 - 1500 cGy in 3 fx of 500 cGy/fxwere delivered with Ir-192 HDRB prescribed to the 5mm vaginal depth08/10/12 CT Abdomen and Pelvis: ASYMMETRIC 2.5 -CM SOFT TISSUE THICKENING ANDHETEROGENEOUS ENHANCEMENT INVOLVING THE LEFT VAGINAL CUFF. THIS APPEARS TO BENEW SINCE THE PRIOR CT (ALTHOUGH THAT WAS PERFORMED WITHOUT CONTRAST), AND ISTHUS SUSPICIOUS FOR RECURRENCE.08/10/12 CT Chest: At least two nonspecific nodular opacities in the right lungand left lung that measure < 5-mm in long axis.Recommend obtaining prior Chest CT study, if available, to further characterizeaforementio rai findings to exclude or suggest metastatic disease in the chest.If no prior Chest CT study is available then recommend follow up Chest CT studyin 3 months to exclude or suggest metastatic disease in the chest.08/17/2012 PET: Negative PET scan with no abnormal uptake identified along theasymmetric left side of the vaginal cuff. No hypermetabolic uptake in the lowerpelvis is seen to suggest local recurrence. No evidence for distant metastases.11/24/2012 CT Chest: Stable CT examination with few unchanged (< 5 mm) lungnodules. Continued CT surveillance is recommended in the setting of knownmalignancy. 014 CT SCAN - ChestStable CT examination, with few < 5 mm lung nodules, stable since July 2012.Continued imaging followup is recommended in the setting of aknown malignancy.02/15/2014 CT SCAN - Abdomen AND PelvisHypodensity seen at the head/neck of the pancreas not demonstrated on prior CTstudies. MRI/MRCP recommended for further evaluation. Slight thickening of thepancreas and obscuration of surrounding fat planes about the pancreatic head.The possibility of mild or recent pancreatitis cannot be excluded. There is nointrahepatic lesion or significant adenopathy.03/14/2014 MRI AbdomenThe main pancreatic duct is dilated in the head and body of the pancreas. 2complex cystic lesions in the neck and distal body of the pancreas asdescribed above. Findings could be due to sidebranch IPMN (intraductalpapillary mucinous neoplasm). Clinical correlation and short-term follow-upstudy are recommended to assess the stability, progression or resolution of theabove findings.LAST MAMMOGRAM:09/09/14 Screening Mammogram - left additional views recommended09/26/14 Left Diagnostic Mammogram - 6 month follow up recommendedClinical breast exam done at her visit on Visit No clinical evidence of disease the patient will be seen in 6months time. Mammogram is scheduled for Tuesday.12/05/2015 PAP SMEAR: - Gvojpcnv95/26/2016 EGD with biopsy - quwqeitwz03/22/2016 KUB - Aegghukt73/10/2017 LAST Office Visit: No clinical evidence of disease. The patient haschronic GI issues and has been extensively evaluated by Dr Corrales. She plansto seek a second opinion at [facility]. I have asked her to return in 12 months timein follow-up. A mammogram and CXR will be scheduled.07/09/2016 Last PAP: Xplkgmym33/12/2017 Last CXR: Negative, See scanned docs 12/08/17Treatment Summary / Survivorship Document initiated: Kimberly Grubbs RNREVIEW OF SYSTEMS:her GI symptoms have significantly improved with elimination of lactose fromher diet. She is otherwise feeling well and denies shortness of breath,nausea, vomiting, constipation, problems urinating, unexplained weight loss, orvaginal bleeding.PHYSICAL EXAM:BP 137/81 Pulse 81 Temp 36.8 ?C (98.3 ?F) (Oral) Wt 51.6 kg (113 lb12.8 oz) LMP 06/14/2011 BMI 21.86 kg/m?Female in no acute distress.Neck - Negative.Supraclavicula r and axillary - Adenopathy absent.Respiratory - Clear to ausculation.Breasts - No masses.Abdominal - No CVA tenderness. The bowel sounds are positive. The abdomen issoft, nontender and there is no inguinal adenopathy.Pelvic - Normal vulva and vaginal cuff. A pap smear is obtained. Bimanual andrectovaginal exams reveal no masses.IMPRESSION:No clinical evidence of disease the patient will be seen in 12 months time. Amammogram will be scheduled.I saw the patient and personally participated in the segovia components and agreewith the documented findings and plan.Sincerely,[place] Brand M.D.Reviewed and corrected by [place] Brand M.D.CC:Sharon OchoaReferring Provider: IND[place] BRAND [[id number]]Allergies As of Date: 11/25/2017(No Known Allergies)Date Reviewed: 11/25/2017Reviewed by: Lesly Oviedo - Rudolph TempleReason for Visit: [facility] [42]Primary Visit Diagnosis:Endometrial cancer (HCC) [C54.1]Order(s):PAP FLUID VAGINAL DIAGNOSTIC [[id number]] Order #: [id number]. #:[id number] as of 11/25/2017 Sig: [id number]-[id number]-OXP OPINE-* Take 1 tablet by mouth every * Patient not taking: Reported on 11/25/2017Problem List As Of Date 11/25/2017 Noted Resolved Endometrial cancer [C54.1] INVALID FOR* Ureteral laceration, right [S37.13XA] INVALID FOR* S/P radiation therapy [Z92.3] INVALID FOR* Abdominal pain, epigastric [R10.13] INVALID FOR* RUQ pain [R10.11] INVALID FOR*Letter TextEncounter Number: [id number] Status:Closed by [place] BRAND MD on 11/25/17 Normal [facility] CYTOLOGYon 11-25-2017 [facility]: [id number] Physician: [place] Brand M.D.SPECIMEN SUBMITTEDA: VAGINAL,DIAGNOSTIC, FLUID FI NAL DIAGNOSISA. VAGINAL,DIAGNOSTIC, FLUIDSatisfactory for interpretation.Negative for intraepithelial lesion or malignancy.Atrophic specimen.This specimen has been analyzed by the ThinPrep Imaging System, BitAccess imaging and review system, which assists the laboratory inevaluating cells on ThinPrep Pap tests. Following automated imaging,selected young from every slide are reviewed by a still operator batch or continuous.JAY Albert(ASCP) (Electronic Signature) CL INICAL DATA HYSTERECTOMY TOTALHPV Testing? -> Yes, Reflex HPV for ASCUSDate of Last Menstrual Period:2-10-16Xsizyrxlp History:HYSTERECTOMYSTA INSA: VAGINAL,DIAGNOSTIC, FLUID THIN PREP Hortencia Potter M.D., Laboratory DirectorPatient ID #: [id number] of Report: 12/02/2017Date of Procedure: 11/25/2017Date of Receipt: 11/28/2017Submitted by: Indiana Brand M.D.Location: FVGYNMDiagnostic interpretation performed at [facility], [address] [place] [address].The Pap Smear is a screening test for cervical cancer. False negativeresults occur with all screening tests, emphasizing the need forrescreening at recommended intervals, and clinical correlation. Normal [facility] Comment on above: Performed By: #### P FVAGD ####[id number] [place] [address] PROGRESSon 2017 Protein mass conc HNO ID: [id number]: Indiana Schmitz: (none)Author Type: PhysicianType: Progress NotesFiled: 11/25/2017 5:36 PMNote Text:Healthcare Facility Administrator OncologyChillicothe [facility] - GroesbeckFollow up VisitRe: Kamila PatelJ[facility] # [id number] of Service - 11/25/2017Atiya Ochoa Janice returns for follow up of her Stage II (2008) grade 3 endometrialcancer (2 separate tumors in uterus) with LVSI in cervical lesion -negative LNs. Briefly, she is a 62 year old female A1 with a historyof migraines. In July [address] Abraham for secondopinion regarding a possible hysterectomy. Prior to this she was diagnosedwith endometrial hyperplasia by her machine container washer and was started onprogesterone. A second biopsy was negative. She also has an enlargeduterus with large uterine fibroids. She was told that the size of heruterus was close to 20 weeks. She stated at that time that she is veryactive physically and sexually with her and would like to avoid ahysterectomy if at all possible unless this could be performedlaparoscopical ly. Dr. Abraham discussed possible treatment optionsincluding robotic hysterectomy, oral hormonal agents or Mirena IUD. On07/27/2011 she underwent a hysteroscopy with CRISTIAN with pathologydemonstrating FIGO Grade 1 endometrial adenocarcinoma.SURGERY: 08/18/2011Exploratory laparotomy, total abdominal hysterectomy with bilateralsalpingo-oopho rectomy and bilateral pelvic and para-aorticlymphadenect karishma, cystoscopy, intraoperative consultation with Dr. Suhfor right ureteral stent placementHISTOLOGIC TYPE: Endometrioid adenocarcinoma.TUMOR SIZE: 0.6cm (FIGO grade 3 tumor in isthmus), 0.3cm (largest focus ofFIGO grade 1 tumor in fundus)HISTOLOGIC GRADE: FIGO grade 3 in the isthmus, and FIGO grade 1 in thefundus.MYOMETRIAL INVASION: In the isthmus the invasion is 5 millimeters out of atotal myometrial thickness of 9 millimeters (55%). No invasion is presentin the fundic carcinoma.INVOLVEMENT OF CERVIX: Uninvolved.LYMPH-VASCUL AR INVASION: Present.0/15 pelvic lymph nodes, 0/10 para-aortic lymph nodes demonstratedmetastasis. PATHOLOGY:PELVIC WASHING - Negative for malignant cellsTISSUE PATHOLOGY [facility] FOR REVIEWEndometrium: Two separate foci of endometrial adenocarcinoma (seecomment);- Endometrial adenocarcinoma, endometrioid type, FIGO grade 3, arising inregion of the isthmus (see comment).- Endometrial adenocarcinoma, endometrioid type, FIGO grade 1 arising in abackground of atypical complex hyperplasia, involving the fundus andconsistent with a second focus/primary (see comment).Myometrium:- At the isthmus, the endometrial adenocarcinoma, endometrioid type, FIGOgrade 3, invades to a depth of 5 mm of a total isthmus myometrialthickness of 9 mm (55%) with a focus of lymphovascular invasion present conrad depth slightly beyond the greatest depth of invasion.-No evidence of myometrial invasion in the fundic endometrialadenocarcino ma, endometrioid type, FIGO grade 1.Right and left fallopian tubes and ovaries, right and left pelvic andpara-aortic lymph nodes negative for malignancy. Cervical involvement:Not present. The cervix is uninvolved. Invasion of lower uterine segmentis present. The endocervix is uninvolved.COMMENTThe two adenocarcinomas may represent two independent primaries in theisthmus and fundus. The possibility of dedifferentiation of a the lowgrade endometrial adenocarcinoma in the fundus to a high grade cannot beexcludedRADIATION THERAPYPelvic: 10/04/11 to 11/08/11 - 4500 cGy in 25 fractions.Vaginal brachytherapy 11/14, 11/21, 11/29/2011 - 1500 cGy in 3 fx of 500cGy/fx were delivered with Ir-192 HDRB prescribed to the 5mm vaginal depth08/10/12 CT Abdomen and Pelvis: ASYMMETRIC 2.5 -CM SOFT TISSUE THICKENINGAND HETEROGENEOUS ENHANCEMENT INVOLVING THE LEFT VAGINAL CUFF. THISAPPEARS TO BE NEW SINCE THE PRIOR CT (ALTHOUGH THAT WAS PERFORMED WITHOUTCONTRAST), AND IS THUS SUSPICIOUS FOR RECURRENCE.08/10/12 CT Chest: At least two nonspecific nodular opacities in the rightlung and left lung that measure < 5-mm in long axis.Recommend obtaining prior Chest CT study, if available, to furthercharacterize aforementioned findings to exclude or suggest metastaticdisease in the chest. If no prior Chest CT study is available thenrecommend follow up Chest CT study in 3 months to exclude or suggestmetastatic disease in the chest.08/17/2012 PET: Negative PET scan with no abnormal uptake identified alongthe asymmetric left side of the vaginal cuff. No hypermetabolic uptake inthe lower pelvis is seen to suggest local recurrence. No evidence fordistant metastases.11/24/2012 CT Chest: Stable CT examination with few unchanged (< 5 mm)lung nodules. Continued CT surveillance is recommended in the setting ofknown malignancy.08/02/2013 CT SCAN - ChestStable CT examination, with few < 5 mm lung nodules, stable since July2012. Continued imaging followup is recommended in the setting of aknown malignancy.02/15/2014 CT SCAN - Abdomen AND PelvisHypodensity seen at the head/neck of the pancreas not demonstrated onprior CT studies. MRI/MRCP recommended for further evaluation. Slightthickening of the pancreas and obscuration of surrounding fat planes aboutthe pancreatic head. The possibility of mild or recent pancreatitis cannotbe excluded. There is no intrahepatic lesion or significant adenopathy.03/14/2014 MRI AbdomenThe main pancreatic duct is dilated in the head and body of the pancreas.2 complex cystic lesions in the neck and distal body of the pancreas asdescribed above. Findings could be due to sidebranch IPMN (intraductalpapillary mucinous neoplasm). Clinical correlation and zkoyx-bddivbvcma-zf study are recommended to assess the stability, progression orresolution of the above findings.LAST MAMMOGRAM:09/09/14 Screening Mammogram - left additional viewsrecommended09/26/14 Left Diagnostic Mammogram - 6 month follow up recommendedClinical breast exam done at her visit on Visit No clinical evidence of disease the patient will be seenin 6 months time. Mammogram is scheduled for Tuesday.12/05/2015 PAP SMEAR: - Ancgbvbx27/26/2016 EGD with biopsy - /22/2016 KUB - Thaxyago18/10/2017 LAST Office Visit: No clinical evidence of disease. Thepatient has chronic GI issues and has been extensively evaluated by Natalia. She plans to seek a second opinion at [facility]. I have asked her toreturn in 12 months time in follow-up. A mammogram and CXR will bescheduled.07/09/2016 Last PAP: Sjngrnog39/12/2017 Last CXR: Negative, See scanned docs 12/08/17Treatment Summary / Survivorship Document initiated: Kimberly Grubbs RNREVIEW OF SYSTEMS:her GI symptoms have significantly improved with elimination of lactosefrom her diet. She is otherwise feeling well and denies shortness ofbreath, nausea, vomiting, constipation, problems urinating, unexplainedweight loss, or vaginal bleeding.PHYSICAL EXAM:BP 137/81 Pulse 81 Temp 36.8 ?C (98.3 ?F) (Oral) Wt 51.6 kg (113lb 12.8 oz) LMP 06/14/2011 BMI 21.86 kg/m?Female in no acute distress.Neck - Negative.Supraclavicula r and axillary - Adenopathy absent.Respiratory - Clear to ausculation.Breasts - No masses.Abdominal - No CVA tenderness. The bowel sounds are positive. Theabdomen is soft, nontender and there is no inguinal adenopathy.Pelvic - Normal vulva and vaginal cuff. A pap smear is obtained.Bimanual and rectovaginal exams reveal no masses.IMPRESSION:No clinical evidence of disease the patient will be seen in 12 monthstime. A mammogram will be scheduled.I saw the patient and personally participated in the segovia components andagree with the documented findings and plan.Sincerely,Indiana Brand M.D.Reviewed and corrected by Indiana Brand M.D.CC:[facility] Vital Signs Date Time Vital Sign Value Performing Clinician Facility 03-11-2025 09:49-0500 Body height 154.9 cm Monie Galarza MD Work Phone: [facility] 03-11-2025 09:49-0500 Body mass index (BMI) [Ratio] 19.65 kg/m2 Monie Galarza MD Work Phone: [facility] 03-11-2025 09:49-0500 Body weight 47.17 kg Monie Galarza MD Work Phone: [facility] 03-11-2025 09:49-0500 Diastolic blood pressure 83 mm[Hg] Monie Galarza MD Work Phone: [facility] 03-11-2025 09:49-0500 Heart rate 90 /min Monie Galarza MD Work Phone: [facility] 03-11-2025 09:49-0500 Systolic blood pressure 145 mm[Hg] Monie Galarza MD Work Phone: 2(409)683-916943 [place] [address] 02-11-2025 08:10-0400 Body height 154.9 cm Monie Galarza MD Work Phone: 0(296)473-751901 [place] [address] 02-11-2025 08:10-0400 Body mass index (BMI) [Ratio] 19.86 kg/m2 Monie Galarza MD Work Phone: 0(274)129-610201 [place] [address] 02-11-2025 08:10-0400 Body weight 47.67 kg Monie Galarza MD Work Phone: 0(315)199-285201 [place] [address] 02-11-2025 08:10-0400 Diastolic blood pressure 84 mm[Hg] Monie Galarza MD Work Phone: 7(675)155-585201 [place] [address] 02-11-2025 08:10-0400 Heart rate 67 /min Monie Galarza MD Work Phone: 1(518)384-340601 [place] [address] 02-11-2025 08:10-0400 Systolic blood pressure 171 mm[Hg] Monie Galarza MD Work Phone: 3(068)700-909001 [place] [address] 01-21-2025 08:05-0400 Body height 154.9 cm Monie Galarza MD Work Phone: 1(670)773-719501 [place] [address] 01-21-2025 08:05-0400 Body mass index (BMI) [Ratio] 19.59 kg/m2 Monie Galarza MD Work Phone: 1(294)598-616701 [place] [address] 01-21-2025 08:05-0400 Body weight 47.04 kg Monie Galarza MD Work Phone: 2(477)822-299501 [place] [address] 01-21-2025 08:05-0400 Diastolic blood pressure 85 mm[Hg] Monie Galarza MD Work Phone: 0(941)578-797301 [place] [address] 01-21-2025 08:05-0400 Heart rate 70 /min Monie Galarza MD Work Phone: 0(171)633-073743 [place] [address] 01-21-2025 08:05-0400 Systolic blood pressure 170 mm[Hg] Monie Galazra MD Work Phone: 8(749)254-841101 [place] [address] 11-20-2024 08:04-0400 Body height 154.9 cm Monie Galarza MD Work Phone: 8(792)959-917601 [place] [address] 11-20-2024 08:04-0400 Body mass index (BMI) [Ratio] 20.6 kg/m2 Monie Galarza MD Work Phone: 3(680)287-008201 [place] [address] 11-20-2024 08:04-0400 Body weight 49.44 kg Monie Galarza MD Work Phone: 3(220)246-184401 [place] [address] 11-20-2024 08:04-0400 Diastolic blood pressure 72 mm[Hg] Monie Galarza MD Work Phone: 9(225)804-259701 [place] [address] 11-20-2024 08:04-0400 Heart rate 76 /min Monie Galarza MD Work Phone: 3(970)130-474101 [place] [address] 11-20-2024 08:04-0400 Systolic blood pressure 122 mm[Hg] Monie Galarza MD Work Phone: 4(766)700-422801 [place] [address] 05-23-2024 09:57-0500 Body height 154.9 cm Monie Galarza MD Work Phone: 0(891)049-684501 [place] [address] 05-23-2024 09:57-0500 Body mass index (BMI) [Ratio] 20.71 kg/m2 Monie Galarza MD Work Phone: 1(702)702-014101 [place] [address] 05-23-2024 09:57-0500 Body weight 49.71 kg Monie Galarza MD Work Phone: 5(277)552-946601 [place] [address] 05-23-2024 09:57-0500 Diastolic blood pressure 80 mm[Hg] Monie Galarza MD Work Phone: 8(651)322-108901 [place] [address] 05-23-2024 09:57-0500 Heart rate 82 /min Monie Galarza MD Work Phone: [facility] 05-23-2024 09:57-0500 SaO2% (BldA) [Mass fraction] 96 % Monie Galarza MD Work Phone: 5(605)385-505143 [place] [address] 05-23-2024 09:57-0500 Systolic blood pressure 128 mm[Hg] Monie Galarza MD Work Phone: 8(483)091-722901 [place] [address] 04-17-2024 08:11-0500 Body height 152.4 cm Monie Galarza MD Work Phone: 4(218)584-913801 [place] [address] 04-17-2024 08:11-0500 Body mass index (BMI) [Ratio] 20.99 kg/m2 Monie Galarza MD Work Phone: 6(078)601-078701 [place] [address] 04-17-2024 08:11-0500 Body weight 48.76 kg Monie Galarza MD Work Phone: 3(820)124-981201 [place] [address] 04-17-2024 08:11-0500 Diastolic blood pressure 81 mm[Hg] Monie Galarza MD Work Phone: 6(207)737-749101 [place] [address] 04-17-2024 08:11-0500 Heart rate 73 /min Monie Galarza MD Work Phone: 7(623)380-185001 [place] [address] 04-17-2024 08:11-0500 Systolic blood pressure 146 mm[Hg] Monie Galarza MD Work Phone: 5(072)718-982301 [place] [address] 03-27-2024 10:22-0500 Body height 152.4 cm Monie Galarza MD Work Phone: 4(314)123-462401 [place] [address] 03-27-2024 10:22-0500 Body mass index (BMI) [Ratio] 20.7 kg/m2 Monie Galarza MD Work Phone: 9(884)795-372401 [place] [address] 03-27-2024 10:22-0500 Body weight 48.08 kg Monie Galarza MD Work Phone: 7(946)840-948501 [place] [address] 03-27-2024 10:22-0500 Diastolic blood pressure 84 mm[Hg] Monie Galarza MD Work Phone: 2(749)034-105201 [place] [address] 03-27-2024 10:22-0500 Heart rate 76 /min Monie Galarza MD Work Phone: 3(647)631-153801 [place] [address] 03-27-2024 10:22-0500 Systolic blood pressure 163 mm[Hg] Monie Galarza MD Work Phone: 5(646)267-506501 [place] [address] 01-31-2024 08:30-0400 Body height 152.4 cm Monie Galarza MD Work Phone: 3(758)138-214301 [place] [address] 01-31-2024 08:30-0400 Body mass index (BMI) [Ratio] 20.02 kg/m2 Monie Galarza MD Work Phone: 5(810)003-285101 [place] [address] 01-31-2024 08:30-0400 Body weight 46.49 kg Monie Galarza MD Work Phone: 2(973)843-321501 [place] [address] 01-31-2024 08:30-0400 Diastolic blood pressure 98 mm[Hg] Monie Galarza MD Work Phone: 7(677)953-113401 [place] [address] 01-31-2024 08:30-0400 Heart rate 85 /min Monie Galarza MD Work Phone: 8(791)665-971101 [place] [address] 01-31-2024 08:30-0400 Systolic blood pressure 163 mm[Hg] Monie Galarza MD Work Phone: 1(121)893-256301 [place] [address] 12-29-2023 08:40-0400 Body height 152.4 cm Monie Galarza MD Work Phone: 8(651)026-683001 [place] [address] 12-29-2023 08:40-0400 Body mass index (BMI) [Ratio] 19.22 kg/m2 Monie Galarza MD Work Phone: 4(669)962-713701 [place] [address] 12-29-2023 08:40-0400 Body weight 44.63 kg Monie Galarza MD Work Phone: 3(056)331-035843 [place] [address] 12-29-2023 08:40-0400 Diastolic blood pressure 68 mm[Hg] Monie Galarza MD Work Phone: 9(060)676-435801 [place] [address] 12-29-2023 08:40-0400 Heart rate 84 /min Monie Galarza MD Work Phone: 6(756)750-781001 [place] [address] 12-29-2023 08:40-0400 Systolic blood pressure 142 mm[Hg] Monie Galarza MD Work Phone: 8(176)373-124501 [place] [address] 11-10-2023 07:59-0400 Body height 152.4 cm Monie Galarza MD Work Phone: 6(082)439-254801 [place] [address] 11-10-2023 07:59-0400 Body mass index (BMI) [Ratio] 18.36 kg/m2 Monie Galarza MD Work Phone: 3(376)264-607501 [place] [address] 11-10-2023 07:59-0400 Body weight 42.64 kg Monie Galarza MD Work Phone: 8(120)833-519001 [place] [address] 11-10-2023 07:59-0400 Diastolic blood pressure 84 mm[Hg] Monie Galarza MD Work Phone: 7(651)787-767401 [place] [address] 11-10-2023 07:59-0400 Heart rate 76 /min Monie Galarza MD Work Phone: 9(128)262-943401 [place] [address] 11-10-2023 07:59-0400 Systolic blood pressure 146 mm[Hg] Monie Galarza MD Work Phone: 3(075)598-411801 [place] [address] 10-11-2023 08:06-0400 Body height 152.4 cm Monie Galarza MD Work Phone: 9(859)143-121301 [place] [address] 10-11-2023 08:06-0400 Body mass index (BMI) [Ratio] 17.89 kg/m2 Monie Galarza MD Work Phone: 7(667)518-912901 [place] [address] 10-11-2023 08:06-0400 Body weight 41.55 kg Monie Galarza MD Work Phone: [facility] 10-11-2023 08:06-0400 Diastolic blood pressure 74 mm[Hg] Monie Galarza MD Work Phone: [facility] 10-11-2023 08:06-0400 Heart rate 78 /min Monie Galarza MD Work Phone: [facility] 10-11-2023 08:06-0400 Systolic blood pressure 126 mm[Hg] Monie Galarza MD Work Phone: [facility] 10-06-2023 15:55-0400 Body temperature 97.9 [degF] Veto Jeffries MD Work Phone: [facility] 10-06-2023 15:55-0400 Diastolic blood pressure 76 mm[Hg] Veto Jeffries MD Work Phone: [facility] 10-06-2023 15:55-0400 Heart rate 84 /min Veto Jeffries MD Work Phone: [facility] 10-06-2023 15:55-0400 Respiratory rate 15 /min Veto Jeffries MD Work Phone: [facility] 10-06-2023 15:55-0400 SaO2% (BldA) [Mass fraction] 97 % Veto Jeffries MD Work Phone: [facility] 10-06-2023 15:55-0400 Systolic blood pressure 123 mm[Hg] Veto Jeffries MD Work Phone: [facility] 10-05-2023 22:35-0400 Body mass index (BMI) [Ratio] 18.03 kg/m2 Veto Jeffries MD Work Phone: [facility] 10-05-2023 22:35-0400 Body weight 41.87 kg Veto Jeffries MD Work Phone: [facility] 10-04-2023 16:21-0400 Body height 152.4 cm Veto Jeffries MD Work Phone: [facility] 10-04-2023 12:08-0400 Body temperature 37.0 Veto Jeffries MD Work Phone: [facility] Comment on above: NOTE: Patient Results are Not Corrected for Temperature 10-04-2023 10:18-0400 Body temperature 37.0 degrees [facility] Comment on above: Result Comment: NOTE: Patient Results ar e Not Corrected for Temperature Performed By: #### 2 341-6 #### LINDA Beckett ([id number]) [facility] ([facility]) [address] [place] [id number] 10-04-2023 10:17-0400 Body temperature 37.0 Veto Jeffries MD Work Phone: [facility] Comment on above: NOTE: Patient Results are Not Corrected for Temperature 10-04-2023 10:15-0400 Body temperature 37.0 degrees [facility] Comment on above: Result Comment: NOTE: Patient Results ar e Not Corrected for Temperature Performed By: #### 2 341-6 #### LINDA Beckett ([id number]) [facility] ([facility]) [address] [place], [place] [id number] 10-04-2023 02:24-0400 Diastolic blood pressure 81 mm[Hg] Diandra Nielson DO Work Phone: [facility] 10-04-2023 02:24-0400 Heart rate 94 /min Diandra Nielson DO Work Phone: [facility] 10-04-2023 02:24-0400 Respiratory rate 18 /min Diandra Nielson DO Work Phone: [facility] 10-04-2023 02:24-0400 SaO2% (BldA) [Mass fraction] 100 % Diandra Nielson DO Work Phone: [facility] 10-04-2023 02:24-0400 Systolic blood pressure 114 mm[Hg] Diandra Nielson DO Work Phone: [facility] 10-03-2023 19:43-0400 Body height 152.4 cm Diandra Nielson DO Work Phone: [facility] 10-03-2023 19:43-0400 Body mass index (BMI) [Ratio] 17.58 kg/m2 Diandra Nielson DO Work Phone: [facility] 10-03-2023 19:43-0400 Body temperature 97.7 [degF] Diandra Nielson DO Work Phone: [facility] 10-03-2023 19:43-0400 Body weight 40.82 kg Diandra Nielson DO Work Phone: [facility] 09-23-2023 10:14-0400 Body temperature 37.0 degrees [facility] Comment on above: Performed By: #### 5902-2 #### LINDA Beckett ([id number]) [facility] ([facility]) [address] [place] [address] 09-23-2023 10:14-0400 SaO2% (BldA) [Mass fraction] 100 % [facility] Comment on above: Performed By: #### 5902-2 #### LINDA Beckett ([id number]) [facility] ([facility]) [address] [place] [address] 09-20-2023 21:00-0400 Body temperature 98.91 [degF] Partha Vaughn DO Work Phone: [facility] 09-20-2023 21:00-0400 Diastolic blood pressure 83 mm[Hg] Partha Vaughn DO Work Phone: [facility] 09-20-2023 21:00-0400 Heart rate 86 /min Partha Vaughn DO Work Phone: [facility] 09-20-2023 21:00-0400 Respiratory rate 16 /min Partha Vaughn DO Work Phone: [facility] 09-20-2023 21:00-0400 SaO2% (BldA) [Mass fraction] 95 % Partha Vaughn DO Work Phone: [facility] 09-20-2023 21:00-0400 Systolic blood pressure 134 mm[Hg] Partha Vaughn DO Work Phone: [facility] 09-19-2023 06:29-0400 Body mass index (BMI) [Ratio] 17.17 kg/m2 Partha Vaughn DO Work Phone: [facility] 09-19-2023 06:29-0400 Body weight 42.59 kg Partha Vaughn DO Work Phone: [facility] 09-18-2023 18:38-0400 Body height 157.5 cm Partha Vaughn DO Work Phone: [facility] 09-12-2023 08:07-0400 Body height 154.9 cm Monie Galarza MD Work Phone: [facility] 09-12-2023 08:07-0400 Body mass index (BMI) [Ratio] 18.52 kg/m2 Monie Galarza MD Work Phone: [facility] 09-12-2023 08:07-0400 Body weight 44.45 kg Monie Galarza MD Work Phone: [facility] 09-12-2023 08:07-0400 Diastolic blood pressure 77 mm[Hg] Monie Galarza MD Work Phone: [facility] 09-12-2023 08:07-0400 Heart rate 71 /min Monie Galarza MD Work Phone: [facility] 09-12-2023 08:07-0400 Systolic blood pressure 127 mm[Hg] Monie Galarza MD Work Phone: 3(611)078-788401 [place] [address] 08-22-2023 08:59-0400 Diastolic blood pressure 100 mm[Hg] Monie Galarza MD Work Phone: 8(459)259-478801 [place] [address] 08-22-2023 08:59-0400 Heart rate 67 /min Monie Galarza MD Work Phone: 5(231)091-241501 [place] [address] 08-22-2023 08:59-0400 Systolic blood pressure 160 mm[Hg] Monie Galarza MD Work Phone: 9(225)238-921301 [place] [address] 08-22-2023 08:51-0400 Body height 154.9 cm Monie Galarza MD Work Phone: 2(388)026-503201 [place] [address] 08-22-2023 08:51-0400 Body mass index (BMI) [Ratio] 18.89 kg/m2 Monie Galarza MD Work Phone: 6(850)024-106401 [place] [address] 08-22-2023 08:51-0400 Body weight 45.36 kg Monie Galarza MD Work Phone: 3(797)862-380001 [place] [address] 07-11-2023 08:11-0400 Body height 152.4 cm Monie Galarza MD Work Phone: 7(980)338-994801 [place] [address] 07-11-2023 08:11-0400 Body mass index (BMI) [Ratio] 19.24 kg/m2 Monie Galarza MD Work Phone: 8(925)511-908101 [place] [address] 07-11-2023 08:11-0400 Body weight 44.68 kg Monie Galarza MD Work Phone: 2(650)835-726401 [place] [address] 07-11-2023 08:11-0400 Diastolic blood pressure 80 mm[Hg] Monie Galarza MD Work Phone: 6(680)663-408401 [place] [address] 07-11-2023 08:11-0400 Heart rate 82 /min Monie Galarza MD Work Phone: 6(712)579-201501 [place] [address] 07-11-2023 08:11-0400 SaO2% (BldA) [Mass fraction] 96 % Monie Galarza MD Work Phone: 8(026)755-845343 [place] [address] 07-11-2023 08:11-0400 Systolic blood pressure 130 mm[Hg] Monie Galarza MD Work Phone: 3(460)851-985443 [place] [address] 06-06-2023 08:18-0500 Body height 152.4 cm Monie Galarza MD Work Phone: 2(305)026-739543 [place] [address] 06-06-2023 08:18-0500 Body mass index (BMI) [Ratio] 18.57 kg/m2 Monie Galarza MD Work Phone: 6(566)586-287543 [place] [address] 06-06-2023 08:18-0500 Body weight 43.14 kg Monie Galarza MD Work Phone: 3(973)304-982801 [place] [address] 06-06-2023 08:18-0500 Diastolic blood pressure 62 mm[Hg] Monie Galarza MD Work Phone: 3(368)118-199801 [place] [address] 06-06-2023 08:18-0500 Heart rate 68 /min Monie Galarza MD Work Phone: 3(960)311-177743 [place] [address] 06-06-2023 08:18-0500 Systolic blood pressure 114 mm[Hg] Monie Galarza MD Work Phone: 2(795)178-499543 [place] [address] 05-30-2023 11:21-0500 Body height 152.4 cm Monie Galarza MD Work Phone: 4(305)056-743443 [place] [address] 05-30-2023 11:21-0500 Body mass index (BMI) [Ratio] 18.75 kg/m2 Monie Galarza MD Work Phone: 0(076)794-702043 [place] [address] 05-30-2023 11:21-0500 Body weight 43.55 kg Monie Galarza MD Work Phone: 6(549)272-856245 [address] 05-30-2023 11:21-0500 Diastolic blood pressure 93 mm[Hg] Monie Galarza MD Work Phone: 2(310)766-164943 [place] [address] 05-30-2023 11:21-0500 Heart rate 103 /min Monie Galarza MD Work Phone: 0(689)331-809743 [place] [address] 05-30-2023 11:21-0500 Systolic blood pressure 154 mm[Hg] Monie Galarza MD Work Phone: 6(704)914-155143 [place] [address] 05-26-2023 10:45-0500 Diastolic blood pressure 68 mm[Hg] Edgar Gordon MD Work Phone: 6(332)649-668001 [place] [address] 05-26-2023 10:45-0500 Heart rate 68 /min Edgar Gordon MD Work Phone: 2(668)005-131601 [place] [address] 05-26-2023 10:45-0500 Respiratory rate 16 /min Edgar Gordon MD Work Phone: 2(549)840-338801 [place] [address] 05-26-2023 10:45-0500 SaO2% (BldA) [Mass fraction] 98 % Edgar Gordon MD Work Phone: 1(436)467-418843 [place] [address] 05-26-2023 10:45-0500 Systolic blood pressure 112 mm[Hg] Edgar Gordon MD Work Phone: 9(058)027-072401 [place] [address] 05-26-2023 09:48-0500 Body temperature 97 [degF] Edgar Gordon MD Work Phone: 6(443)455-782843 [place] [address] 05-26-2023 08:42-0500 Body height 154.9 cm Edgar Gordon MD Work Phone: 8(555)793-841043 [place] [address] 05-26-2023 08:42-0500 Body mass index (BMI) [Ratio] 18.42 kg/m2 Edgar Gordon MD Work Phone: 2(178)569-358343 [place] [address] 05-26-2023 08:42-0500 Body weight 44.2 kg Edgar Gordon MD Work Phone: 6(590)094-049101 [place] [address] 04-13-2023 08:10-0500 Body height 152.4 cm Monie Galarza MD Work Phone: [facility] 04-13-2023 08:10-0500 Body mass index (BMI) [Ratio] 21.29 kg/m2 Monie Galarza MD Work Phone: [facility] 04-13-2023 08:10-0500 Body weight 49.44 kg Monie Galarza MD Work Phone: [facility] 04-13-2023 08:10-0500 Diastolic blood pressure 94 mm[Hg] Monie Galarza MD Work Phone: [facility] 04-13-2023 08:10-0500 Heart rate 84 /min Monie Galarza MD Work Phone: [facility] 04-13-2023 08:10-0500 SaO2% (BldA) [Mass fraction] 100 % Monie Galarza MD Work Phone: [facility] 04-13-2023 08:10-0500 Systolic blood pressure 162 mm[Hg] Monie Galarza MD Work Phone: [facility] 05-18-2022 08:06-0500 Body height 152.4 cm Moine Galarza Work Phone: [facility] Work Phone: 05-18-2022 08:06-0500 Body mass index (BMI) [Ratio] 21.19 kg/m2 Monie Galarza Work Phone: [facility] Work Phone: 05-18-2022 08:06-0500 Body surface area Derived from formula 1.44 m2 Monie Galarza Work Phone: [facility] Work Phone: 05-18-2022 08:06-0500 Body weight 49.22 kg Monie Galarza Work Phone: [facility] Work Phone: 05-18-2022 08:06-0500 Diastolic blood pressure 78 mm[Hg] Monie Galarza Work Phone: [facility] Work Phone: 05-18-2022 08:06-0500 Heart rate 83 /min Monie Galarza Work Phone: [facility] Work Phone: 05-18-2022 08:06-0500 SaO2% (BldA) [Mass fraction] 96 % Moniebrijesh Galarza Work Phone: [facility] Work Phone: 05-18-2022 08:06-0500 Systolic blood pressure 130 mm[Hg] Monie Galarza Work Phone: [facility] Work Phone: 05-04-2022 08:09-0500 Body height 152.4 cm Monie Gaalrza Work Phone: [facility] Work Phone: 05-04-2022 08:09-0500 Body mass index (BMI) [Ratio] 21.12 kg/m2 Monie Galarza Work Phone: [facility] Work Phone: 05-04-2022 08:09-0500 Body surface area Derived from formula 1.44 m2 Monie Galarza Work Phone: [facility] Work Phone: 05-04-2022 08:09-0500 Body weight 49.05 kg Monie Galarza Work Phone: [facility] Work Phone: 05-04-2022 08:09-0500 Diastolic blood pressure 88 mm[Hg] Monie Alfonsoabi Work Phone: [facility] Work Phone: 05-04-2022 08:09-0500 Heart rate 77 /min Monie Galarza Work Phone: [facility] Work Phone: 05-04-2022 08:09-0500 Systolic blood pressure 158 mm[Hg] Monie Alfonsoabi Work Phone: [facility] Work Phone: 04-06-2022 08:05-0500 Body height 152.4 cm Monie Galarza Work Phone: [facility] Work Phone: 04-06-2022 08:05-0500 Body mass index (BMI) [Ratio] 20.9 kg/m2 Monie Alfonsoabi Work Phone: [facility] Work Phone: 04-06-2022 08:05-0500 Body surface area Derived from formula 1.43 m2 Monie Galarza Work Phone: [facility] Work Phone: 04-06-2022 08:05-0500 Body weight 48.54 kg Monie Galarza Work Phone: [facility] Work Phone: 04-06-2022 08:05-0500 Diastolic blood pressure 82 mm[Hg] Monie Alfonsoabi Work Phone: [facility] Work Phone: 04-06-2022 08:05-0500 Heart rate 74 /min Monie Alfonsoabi Work Phone: [facility] Work Phone: 04-06-2022 08:05-0500 Systolic blood pressure 166 mm[Hg] Monie Alfonsoabi Work Phone: [facility] Work Phone: 11-26-2021 09:33-0400 Body height 152.4 cm Monie Alfonsoabi Work Phone: [facility] 120 Work Phone: 11-26-2021 09:33-0400 Body mass index (BMI) [Ratio] 21.29 kg/m2 Monie Alfonsoabi Work Phone: [facility] 120 Work Phone: 11-26-2021 09:33-0400 Body surface area Derived from formula 1.44 m2 Monie Galarza Work Phone: [facility] 120 Work Phone: 11-26-2021 09:33-0400 Body weight 49.44 kg Monie Galarza Work Phone: [facility] 120 Work Phone: 11-26-2021 09:33-0400 Diastolic blood pressure 90 mm[Hg] Monie Galarza Work Phone: [facility] 120 Work Phone: 11-26-2021 09:33-0400 Systolic blood pressure 160 mm[Hg] Monie Galarza Work Phone: [facility] 120 Work Phone: 10-06-2021 10:31-0400 Body height 152.4 cm Monie Galarza Work Phone: [facility] Work Phone: 10-06-2021 10:31-0400 Body mass index (BMI) [Ratio] 21.37 kg/m2 Monie Alfonsoabi Work Phone: [facility] Work Phone: 10-06-2021 10:31-0400 Body surface area Derived from formula 1.44 m2 Moniebrijesh Galarza Work Phone: [facility] Work Phone: 10-06-2021 10:31-0400 Body weight 49.64 kg Monie Galarza Work Phone: [facility] Work Phone: 10-06-2021 10:31-0400 Diastolic blood pressure 80 mm[Hg] Monie Alfonsoabi Work Phone: [facility] Work Phone: 10-06-2021 10:31-0400 Heart rate 78 /min Monie Galarza Work Phone: [facility] Work Phone: 10-06-2021 10:31-0400 Systolic blood pressure 130 mm[Hg] Monie Alfonsoabi Work Phone: [facility] Work Phone: 09-16-2021 10:32-0400 Body height 152.4 cm Monie Alfonsoabi Work Phone: [place] [place] [facility] [address] Work Phone: 09-16-2021 10:32-0400 Body mass index (BMI) [Ratio] 21.44 kg/m2 Monie Alfonsoabi Work Phone: [place] [place] [facility] [address] Work Phone: 09-16-2021 10:32-0400 Body surface area Derived from formula 1.45 m2 Monie Alfonsoabi Work Phone: [place] [place] [facility] [address] Work Phone: 09-16-2021 10:32-0400 Body weight 49.8 kg Monie Alfonsoabi Work Phone: [place] [place] [facility] [address] Work Phone: 09-16-2021 10:32-0400 Diastolic blood pressure 78 mm[Hg] Monie Alfonsoabi Work Phone: [address] Work Phone: 09-16-2021 10:32-0400 Systolic blood pressure 136 mm[Hg] oMnie Galarza Work Phone: [address] Work Phone: 09-08-2021 09:29-0400 Body height 152.4 cm Monie Galarza Work Phone: [facility] Work Phone: 09-08-2021 09:29-0400 Body mass index (BMI) [Ratio] 21.87 kg/m2 Monie Galarza Work Phone: [facility] Work Phone: 09-08-2021 09:29-0400 Body surface area Derived from formula 1.46 m2 Monie Galarza Work Phone: [facility] Work Phone: 09-08-2021 09:29-0400 Body weight 50.8 kg Monie Galarza Work Phone: [facility] Work Phone: 09-08-2021 09:29-0400 Diastolic blood pressure 82 mm[Hg] Monie Galarza Work Phone: [facility] Work Phone: 09-08-2021 09:29-0400 Heart rate 80 /min Monie Galarza Work Phone: [facility] Work Phone: 09-08-2021 09:29-0400 Systolic blood pressure 148 mm[Hg] Monie Galarza Work Phone: [facility] Work Phone: Encounters Encounter Date Encounter Type Care Provider Facility Start: 03-11-2025 End: 03-11-2025 Office outpatient visit 15 minutes Monie Galarza MD Work Phone: [facility] Comment on above: Benign essential HTN (Primary Dx); B12 deficiency Start: 03-11-2025 End: 03-11-2025 ambulatory [facility] Start: 02-11-2025 End: 02-11-2025 Office outpatient visit 25 minutes Monie Galarza MD Work Phone: [facility] Comment on above: Benign essential HTN (Primary Dx); B12 deficiency Start: 02-11-2025 End: 02-11-2025 ambulatory [facility] Start: 01-21-2025 End: 01-21-2025 Office outpatient visit 25 minutes Monie Galarza MD Work Phone: [facility] Comment on above: Benign essential HTN (Primary Dx); Hypokalemia; B12 deficiency; Need for influenza vaccination; Chronic diarrhea Start: 01-21-2025 End: 01-21-2025 [facility] Ambulatory Start: 12-20-2024 End: 12-20-2024 ambulatory [facility] Start: 12-18-2024 End: 12-18-2024 Patient encounter procedure Alejandrina CORONA -[facility] Work Phone: Start: 12-18-2024 End: 12-18-[address] Monie Galarza MD Work Phone: [facility] Start: 11-20-2024 End: 11-20-2024 Assay of hemosiderin, quant Monie Galraza MD Work Phone: [facility] Work Phone: Start: 11-20-2024 End: 11-20-2024 Patient encounter procedure Monie Galarza MD Work Phone: [facility] Comment on above: Routine general medi raquel examination at health care facility (Primary Dx); Benign essential HTN; Hypertriglyceridemia; B12 deficiency; Chronic fatigue Start: 11-20-2024 End: 11-20-2024 ambulatory [facility] Start: 11-20-2024 End: 11-20-2024 Encounter for general adult medical examination without abnormal findings [facility] Start: 09-18-2024 End: 09-18-2024 Patient encounter procedure Alejandrina CORONA -[facility] Work Phone: Start: 09-18-2024 End: 09-18-[address] Monie Galarza MD Work Phone: [facility] Work Phone: Start: 06-30-2024 End: 06-30-[address] Monie Galarza MD Work Phone: [facility] Work Phone: Start: 06-30-2024 End: 06-30-2024 Patient encounter procedure Alejandrina CORONA -Laboratory Work Phone: Start: 06-30-2024 End: 06-30-2024 ambulatory Alejandrina Montes Facility:[facility] Start: 06-12-2024 End: 06-12-2024 Patient encounter procedure Alejandrina CORONA -[facility] Work Phone: Start: 06-12-2024 End: 06-12-2024 ambulatory Alejandrina Montes Facility:[facility] Start: 05-23-2024 End: 05-23-2024 Office outpatient visit 25 minutes Monie Galarza MD Work Phone: [facility] Comment on above: Fatigue, unspecified type (Primary Dx); B12 deficiency; Benign essential HTN; Protein-calorie malnutrition, unspecified severity (Multi); Hypertriglyceridemia Start: 05-23-2024 End: 05-23-2024 ambulatory [facility] Start: 05-09-2024 End: 05-09-2024 Subsequent hospital visit by physician Aníbal Ultrasound 1 [facility] Comment on above: Abnormal mammogram Start: 05-09-2024 End: 05-09-2024 ambulatory [facility] Start: 05-07-2024 End: 05-07-2024 Subsequent hospital visit by physician Aníbal [id number] D[facility] Comment on above: Post-menopausal Encounter for screen ing mammogram for breast cancer Start: 05-07-2024 End: 05-07-2024 ambulatory [facility] Start: 04-17-2024 End: 04-17-2024 Office outpatient visit 25 minutes Monie Galarza MD Work Phone: [facility] Comment on above: Benign essential HTN (Primary Dx); B12 deficiency Start: 04-17-2024 End: 04-17-2024 ambulatory [facility] Start: 03-27-2024 End: 03-27-2024 Office outpatient visit 25 minutes Monie Galarza MD Work Phone: [facility] Comment on above: Benign essential HTN (Primary Dx); B12 deficiency; Encounter for screening mammogram for breast cancer; Post-menopausal; Fatigue, unspecified type Start: 03-27-2024 End: 03-27-2024 ambulatory [facility] Start: 03-22-2024 End: 03-22-2024 ambulatory [facility] Start: 03-06-2024 End: 03-06-2024 [facility] Start: 01-31-2024 End: 01-31-2024 Office outpatient visit 25 minutes Monie Galarza MD Work Phone: [facility] Comment on above: Chronic diarrhea (Pr imary Dx); Benign essential HTN; S/P small bowel resection; B12 deficiency; Anemia, unspecified type; Hypomagnesemia; Hypoproteinemia (Multi); Fatigue, unspecified type Start: 12-29-2023 End: 12-29-2023 Office outpatient visit 25 minutes Monie Galarza MD Work Phone: [facility] Comment on above: Benign essential HTN (Primary Dx); Protein-calorie malnutrition, unspecified severity (Multi); Chronic diarrhea; Anemia, unspecified type; B12 deficiency Start: 12-27-2023 End: 12-27-2023 ambulatory [facility] Start: 11-10-2023 End: 11-10-2023 Office outpatient visit 25 minutes Monie Galarza MD Work Phone: [facility] Comment on above: Chronic diarrhea (Pr imary Dx); Benign essential HTN; Hypokalemia; Hypomagnesemia; Hypocalcemia; Hypoproteinemia (Multi) Start: 11-07-2023 End: 11-07-2023 ambulatory MONIE GALARZA [facility] Start: 10-11-2023 End: 10-11-2023 Transitional care manage srvc 14 day discharge Monie Galarza MD Work Phone: [facility] Comment on above: Fatigue, unspecified type (Primary Dx); Gastroesophageal reflux disease, unspecified whether esophagitis present; Hypomagnesemia; Hypokalemia; Benign essential HTN; Anemia, unspecified type; Hypocalcemia; History of partial colectomy; S/P small bowel resection; History of small bowel obstruction Start: 10-04-2023 End: 10-06-2023 Evaluation and management of inpatient Veto Jeffries MD Work Phone: [facility] 6 Comment on above: Diarrhea (Primary Dx ); Dehydration; Post-operative state Start: 10-03-2023 End: 10-04-2023 Emergency department patient visit Diandra Aguilar Lyn DO Work Phone: [facility] Comment on above: Generalized weakness (Primary Dx); Gastroenteritis; BULL (acute kidney injury) ([facility] Start: 09-21-2023 End: 09-29-2023 Evaluation and management of inpatient ALEXUS Heladio MALIK [facility] Start: 09-17-2023 End: 09-21-2023 Evaluation and management of inpatient Partha Vaughn DO Work Phone: [facility] 3 Comment on above: Small bowel obstruct ion (Multi) (Primary Dx); Nausea and vomiting, unspecified vomiting type Start: 09-12-2023 End: 09-12-2023 Office outpatient visit 25 minutes Monie Galarza MD Work Phone: [facility] Comment on above: Chronic nausea (Prim mark Dx); Food intolerance; Weight loss, non-intentional; Benign essential HTN; Chronic gastritis without bleeding, unspecified gastritis type Start: 08-22-2023 End: 08-22-2023 Office outpatient visit 25 minutes Monie Galarza MD Work Phone: [facility] Comment on above: Nausea (Primary Dx); Gastroesophageal reflux disease without esophagitis; Chronic gastritis without bleeding, unspecified gastritis type Start: 07-11-2023 End: 07-11-2023 Office outpatient visit 25 minutes Monie Galarza MD Work Phone: [facility] Comment on above: Chronic gastritis wi thout bleeding, unspecified gastritis type (Primary Dx); Abdominal bloating; Fatigue, unspecified type Start: 06-06-2023 End: 06-06-2023 Office outpatient visit 25 minutes Monie Galarza MD Work Phone: [facility] Comment on above: Gastroesophageal ref lux disease without esophagitis (Primary Dx); Chronic gastritis without bleeding, unspecified gastritis type; Hiatal hernia; Benign essential HTN; H. pylori infection; Gastric polyp Start: 05-30-2023 End: 05-30-2023 Assay of hemosiderin, quant Monie Galarza MD Work Phone: [facility] Work Phone: Start: 05-30-2023 End: 05-30-2023 Patient encounter procedure Monie Galarza MD Work Phone: [facility] Comment on above: Routine general medi raquel examination at health care facility (Primary Dx); Nausea and vomiting, unspecified vomiting type; Abdominal pain, epigastric; Acute gastritis without hemorrhage, unspecified gastritis type; Protein-calorie malnutrition, unspecified severity (CMS/HCC); Hypoproteinemia (CMS/HCC); Benign essential HTN; Gastroesophageal reflux disease without esophagitis; Hiatal hernia Start: 05-26-2023 End: 05-26-2023 Subsequent hospital visit by physician Edgar Gordon MD Work Phone: [facility] Comment on above: Chronic diarrhea; Gastroesophageal reflux disease without esophagitis; Abdominal bloating; Chronic nausea Start: 05-26-2023 End: 05-26-2023 ambulatory EDGAR M [facility] Start: 04-13-2023 End: 04-13-2023 Office outpatient visit 25 minutes Monie Galarza MD Work Phone: [facility] Comment on above: Benign essential HTN (Primary Dx); Gastroesophageal reflux disease without esophagitis; Chronic diarrhea; Abdominal bloating; Chronic nausea; Hypertriglyceridemia Start: 10-12-2022 End: 12-29-2023 Patient encounter status Monie Galarza MD Work Phone: [facility] Work Phone: Start: 10-01-2022 Chart Update Monie Frost i Work Phone: [address] Work Phone: Start: 10-01-[address] Steve Robertman Facility:[id number] Start: 05-18-2022 Office outpatient vi sit 15 minutes Monie Galarza Work Phone: [facility] Work Phone: Start: 05-04-2022 Adv care pln tlkd & alt dcsn maker shruti Galarza Work Phone: [facility] Work Phone: Start: 05-04-2022 AUDIT Monie Frost i Work Phone: [facility] Work Phone: Start: 04-28-2022 Chart Update Monie Frost i Work Phone: [facility] Work Phone: Start: 04-28-[address] Monie Galarza Facility:[id number] Start: 04-07-2022 AUDIT Monie Frost i Work Phone: [facility] Work Phone: Start: 04-06-2022 MCRINITIAL, Provider : Monie Galarza, Status: Pen, Time: 8:00 AM Monienhi Galarza Work Phone: [facility] Work Phone: Start: 04-05-2022 Chart Update Monienhi Alfonsoab i Work Phone: [facility] Work Phone: Start: 04-02-2022 AUDIT Monienhi Frost i Work Phone: [address] Work Phone: Start: 04-02-[address] Steve Robertman Facility:[id number] Start: 12-09-2021 FUV, Provider: Naomy Casillas, Status: Pen, Time: 2:00 PM Monienhi Galarza Work Phone: [facility] 120 Work Phone: Start: 12-07-2021 Chart Update Monie Frost i Work Phone: [facility] 120 Work Phone: Start: 12-04-[address] Monie Galarza Facility:[id number] Start: 11-30-2021 Chart Update Monie Frost i Work Phone: [facility] 120 Work Phone: Start: 11-26-2021 Office outpatient ne w 45 minutes Monie Galarza Work Phone: [facility] 120 Work Phone: Start: 10-06-2021 Chart Update Monienhi Alfonsoab i Work Phone: [facility] Work Phone: Start: 10-06-2021 Office outpatient vi sit 25 minutes Monie Zarrabi Work Phone: [facility] Work Phone: Start: 10-02-2021 Chart Update Monie [facility]fon[facility]ab i [facility] [address] Work Phone: Start: 09-22-2021 AUDIT Monie Alfonsoab i Work Phone: [place] [address] [address] Work Phone: Start: 09-16-2021 Patient encounter procedure Monie Galarza Work Phone: [facility] [address] Work Phone: Start: 09-08-2021 Office outpatient ne w 45 minutes Monie Galarza Work Phone: [facility] Work Phone: Start: 12-01-2017 Patient encounter [place] [facility] Start: 11-25-2017 End: 11-25-2017 Patient encounter [place] [facility] Start: 07-09-2016 End: 07-09-2016 Ambulatory [place] [facility] Encounter for gynecological examination (general) (routine) without abnormal findings Monie Galarza Work Phone: [address] Work Phone: Comment on above: 2017; 09/16/2021: CoTest N [id number]; Patient encounter procedure Monie Galarza Work Phone: [facility] Work Phone: Patient encounter status Monie Galarza Work Phone: [facility] Work Phone: Procedures Date Procedure Procedure Detail Performing Clinician Start: 11-15-2024 Lipid 1996 panel - Serum or Plasma Mansoor Galarza MD Work Phone: Start: 06-30-[address] Margoth Galarza MD Work Phone: Start: 05-09-2024 Us breast uni real time with image limited Monie Galarza MD Work Phone: Start: 05-07-2024 Dxa bone density study 1/> sites axial skel Monie Galarza MD Work Phone: Start: 05-07-2024 End: 05-07-2024 Mammography Monie Galarza MD Work Phone: Start: 10-06-2023 Renal function panel Monika Barron MD Work Phone: Start: 10-05-2023 Basic metabolic panel calcium total Caesar Couch 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[employer]IATE Work Phone: Start: 10-05-2023 Renal function panel Iman North MD Work Phone: Start: 10-04-2023 Culture bacterial quanttative colony count urine Beverley K Spithas [employer]PER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[employer]IATE Work Phone: Start: 10-04-2023 EXTRA URINE COLES TUBE Beverley K Spithas [employer]PER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[employer]OCIATE Work Phone: Start: 10-04-2023 Urinalysis complete W Reflex Culture panel - Urine Beverley K Spithas [employer]PER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[employer] ASSOCIATE Work Phone: Start: 10-04-2023 Inf agent det nucleic acid clostridium amp probe Vania Alonzo PA-C Work Phone: Start: 10-04-2023 Culture bacterial blood aerobic w/id isolates Vania Alonzo PA-C Work Phone: Start: 10-04-2023 Gases blood ph direct iwona xcpt pulse oximitry Beverley K Spithas [employer]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[employer]OCIATE Work Phone: Start: 10-04-2023 Chloride bld Jake Mireles MD Work Phone: Start: 10-04-2023 Comprehensive metabolic panel Beverley K Spi thas [employer]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[employer] ASSOCIATE Work Phone: Start: 10-04-2023 Assay of lactate Diandra Nielson DO Work Phone: Start: 10-03-2023 Ct abdomen & pelvis w/o contrast material Diandra W Nielson DO Work Phone: Start: 10-03-2023 EXTRA TUBES Diandra W Nielson DO Work Phone: Start: 10-03-2023 GREEN TOP Diandra W Nielson DO Work Phone: Start: 10-03-2023 SST TOP Diandra W Nielson DO Work Phone: Start: 10-03-2023 Comprehensive metabolic panel Diandra W Swi ft DO Work Phone: Start: 09-20-2023 Glucose quantitative blood xcpt reagent strip Isabella Tavarez MD Work Phone: Start: 09-20-2023 Glucose quantitative blood xcpt reagent strip Isabella Tavarez MD Work Phone: Start: 09-20-2023 End: 09-20-2023 Blood count complete automated Alexus Oliva MD Work Phone: Start: 09-20-2023 Radiologic exam abdomen 2 views Alexus Lee MD Work Phone: Start: 09-20-2023 EXTRA TUBES Isabella Tavarez MD Work Phone: Start: 09-20-2023 LAVENDER TOP Isabella Tavarez MD Work Phone: Start: 8 End: 09-20-2023 Comprehensive metabolic panel Alexus Adams MD Work Phone: Start: 09-19-2023 Glucose quantitative blood xcpt reagent strip Isabella Tavarez MD Work Phone: Start: 09-19-2023 Glucose [Mass/volume] in Serum or Plasma EDGAR GORDON Start: 09-19-2023 Glucose quantitative blood xcpt reagent strip Isabella Tavarez MD Work Phone: Start: 09-19-2023 INITIATE REQUEST TO ANOTHER FACILITY EDGAR GORDON Start: 09-19-2023 Potassium [Moles/volume] in Serum or Plasma EDGAR TAVALLAEE Start: 09-19-2023 FL SMALL BOWEL SERIES EDGAR TAVALLAEE Start: 09-19-2023 Glucose [Mass/volume] in Serum or Plasma EDGAR TAVALLAEE Start: 09-19-2023 End: 09-19-2023 Potassium serum plasma/whole blood Brinda Campo Manolo [employer]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[employer]OCIATE Work Phone: Start: 09-19-2023 Radiologic exam small int single contrast study Alexus Malik MD Work Phone: Start: 09-19-2023 Glucose [Mass/volume] in Serum or Plasma EDGAR TAVALLAEE Start: 09-19-2023 Glucose quantitative blood xcpt reagent strip Isabella Tavarez MD Work Phone: Start: 09-19-2023 LAVENDER TOP EDGAR TAVALLAEE Start: 09-19-2023 EXTRA TUBES EDGAR TAVALLAEE Start: 09-19-2023 Comprehensive metabolic 2000 panel - Serum or Plasma EDGAR TAVALLAEE Start: 09-19-2023 Magnesium [Mass/volume] in Serum or Plasma EDGAR TAVALLAEE Start: 09-19-2023 Phosphate [Mass/volume] in Serum or Plasma EDGAR TAVALLAEE Start: 09-19-2023 Glucose [Mass/volume] in Serum or Plasma EDGAR TAVALLAEE Start: 09-19-2023 EXTRA TUBES Isabella Tavarez MD Work Phone: Start: 09-19-2023 LAVENDER TOP Isabella Tavarez MD Work Phone: Start: 09-19-2023 End: 09-19-2023 Comprehensive metabolic panel Alexus Adams MD Work Phone: Start: 09-18-2023 Glucose [Mass/volume] in Serum or Plasma EDGAR TAVALLAEE Start: 09-18-2023 Glucose [Mass/volume] in Serum or Plasma EDGAR TAVALLAEE Start: 09-18-2023 Glucose [Mass/volume] in Serum or Plasma EDGAR TAVALLAEE Start: 09-18-2023 Glucose quantitative blood xcpt reagent strip Isabella Tavarez MD Work Phone: Start: 09-18-2023 Glucose [Mass/volume] in Serum or Plasma EDGAR TAVALLAEE Start: 09-18-2023 Glucose quantitative blood xcpt reagent strip Isabella Tavarez MD Work Phone: Start: 09-18-2023 End: 09-18-2023 Glucose quantitative blood xcpt reagent strip Isabella Tavarez MD Work Phone: Start: 09-18-2023 ONC PHYSICIAN COMMUNICATION ORDER MEHRDA D TAVALLAEE Start: 09-18-2023 Comprehensive metabolic 2000 panel - Serum or Plasma EDGAR TAVALLAEE Start: 09-18-2023 Magnesium [Mass/volume] in Serum or Plasma EDGAR TAVALLAEE Start: 09-18-2023 Phosphate [Mass/volume] in Serum or Plasma EDGAR TAVALLAEE Start: 09-18-2023 Glucose [Mass/volume] in Serum or Plasma EDGAR TAVALLAEE Start: 09-18-2023 NOTIFY PROVIDER (PROMPT FOR PARAMETERS) EDGAR TAVALLAEE Start: 09-18-2023 NURSING COMMUNICATION EDGAR TAVALLAEE Start: 09-18-2023 POCT GLUCOSE METER EDGAR TAVALLAEE Start: 09-18-2023 MEASURE HEIGHT EDGAR TAVALLAEE Start: 09-18-2023 NOTIFY PROVIDER (DO NOT PROMPT FOR PARAMETERS) EDGAR TAVALLAEE Start: 09-18-2023 STRICT INTAKE AND OUTPUT EDGAR TAVALLA EE Start: 09-18-2023 WEIGH PATIENT EDGAR TAVALLAEE Start: 09-18-2023 End: 09-18-2023 Basic metabolic panel calcium total Alexus Malik MD Work Phone: Start: 09-18-2023 NASOGASTRIC TUBE INSERTION EDGAR TAVAL LAEE Start: 09-18-2023 XR ABDOMEN 3+ VIEWS EDGAR TAVALLAEE Start: 09-18-2023 Basic metabolic 2000 panel - Serum or Plasma EDGAR TAVALLAEE Start: 09-18-2023 CBC panel - Blood by Automated count EDGAR TAVALLAEE Start: 09-18-2023 Triglyceride [Mass/volume] in Serum or Plasma EDGAR TAVALLAEE Start: 09-18-2023 Radiologic exam abdomen 3+ views Alexus Malik MD Work Phone: Start: 09-18-2023 Comprehensive metabolic panel Tello price MD Work Phone: Start: 09-17-2023 NPO DIET EDGAR TAVALLAEE Start: 09-17-2023 IP CONSULT TO NUTRITION SERVICES EDGAR TAVALLAEE Start: 09-17-2023 XR ABDOMEN 1 VIEW EDGAR TAVALLAEE Start: 09-17-2023 Prealbumin [Mass/volume] in Serum or Plasma EDGAR TAVALLAEE Start: 09-17-2023 EXTRA TUBES EDGAR TAVALLAEE Start: 09-17-2023 SST TOP EDGAR TAVALLAEE Start: 09-17-2023 Basic metabolic 2000 panel - Serum or Plasma EDGAR TAVALLAEE Start: 09-17-2023 C-reactive protein EDGAR TAVALLAEE Start: 09-17-2023 CBC panel - Blood by Automated count EDGAR TAVALLAEE Start: 09-17-2023 Hemoglobin A1c/Hemoglobin.total in Blood EDGAR TAVALLAEE Start: 09-17-2023 Magnesium [Mass/volume] in Serum or Plasma EDGAR TAVALLAEE Start: 09-17-2023 Phosphate [Mass/volume] in Serum or Plasma EDGAR TAVALLAEE Start: 09-17-2023 TYPE AND SCREEN EDGAR TAVALLAEE Start: 09-17-2023 EXTRA URINE COLES TUBE EDGAR TAVALLAEE Start: 09-17-2023 URINALYSIS WITH REFLEX CULTURE AND MICROSCOPIC EDGAR TAVALLAEE Start: 09-17-2023 ACTIVITY EDGAR TAVALLAEE Start: 09-17-2023 ADMIT TO INPATIENT EDGAR TAVALLAEE Start: 09-17-2023 DNR AND NO INTUBATION AND NO ICU EDGAR TAVALLAEE Start: 09-17-2023 MEASURE HEIGHT EDGAR TAVALLAEE Start: 09-17-2023 SEQUENTIAL COMPRESSION DEVICE EDGAR TA VALLAEE Start: 09-17-2023 VITAL SIGNS EDGAR TAVALLAEE Start: 09-17-2023 WEIGH PATIENT EDGAR TAVALLAEE Start: 09-17-2023 ED TO FLOOR BED REQUEST EDGAR TAVALLAE E Start: 09-17-2023 Radiologic exam abdomen 1 view Alexus Oliva MD Work Phone: Start: 09-17-2023 EXTRA TUBES Partha Jabari Vaughn DO Work Phone: Start: 09-17-2023 GREEN TOP Partha D Vaughn DO Work Phone: Start: 09-17-2023 LIGHT BLUE TOP Partha D Vaughn DO Work Phone: Start: 09-17-2023 SST TOP Partha D Vaughn DO Work Phone: Start: 09-17-2023 End: 09-17-2023 Basic metabolic panel calcium total Tello Moore MD Work Phone: Start: 09-17-2023 C-reactive protein Tello Moore MD Work Phone: Start: 09-17-2023 EXTRA URINE COELS TUBE Gladys griffith PA-C Work Phone: Start: 09-17-2023 Urinalysis complete W Reflex Culture panel - Urine Gladys Robles PA-C Work Phone: Start: 09-17-2023 Urnls dip stick/tablet rgnt auto w/o microscopy Gladys Robles PA-C Work Phone: Start: 09-17-2023 CT ABDOMEN PELVIS W IV CONTRAST EDGAR TAVALLAEE Start: 09-17-2023 Bilirubin.indirect [Mass/volume] in Serum or Plasma EDGAR TAVALLAEE Start: 09-17-2023 Comprehensive metabolic 2000 panel - Serum or Plasma EDGAR TAVALLAEE Start: 09-17-2023 EXTRA TUBES EDGAR TAVALLAEE Start: 09-17-2023 LAVENDER TOP EDGAR TAVALLAEE Start: 09-17-2023 Lipase [Enzymatic activity/volume] in Serum or Plasma EDGAR TAVALLAEE Start: 09-17-2023 Lactate [Moles/volume] in Serum or Plasma EDGAR TAVALLAEE Start: 09-17-2023 CBC W Auto Differential panel - Blood EDGAR TAVALLAEE Start: 09-17-2023 Ct abdomen & pelvis w/contrast material Gladys Albarrano PA-C Work Phone: Start: 09-17-2023 End: 09-17-2023 Comprehensive metabolic panel Gladys Robles PA-C Work Phone: Start: 09-17-2023 EXTRA TUBES Gladys Robles PA-C Work Phone: Start: 09-17-2023 LAVENDER TOP Gladys Robles PA-C Work Phone: Start: 05-26-2023 Esophagogastroduodenoscopy EDGAR TAVAL LAEE Start: 05-26-2023 H. PYLORI DRUG SUSCEPTIBILITY GENOTYPIC ASSAY EDGAR TAVALLAEE Start: 05-26-2023 SURGICAL PATHOLOGY EXAM EDGAR TAVALLAE E Start: 05-26-2023 PLACE IN OUTPATIENT/HOSPITAL AMBULATORY SURGERY EDGAR TAVALLAEE Start: 05-26-2023 Colonoscopy w/biopsy single/multiple Monie Galarza MD Work Phone: Start: 05-26-2023 Egd transoral biopsy single/multiple Monie Galarza MD Work Phone: Start: 05-26-2023 Colonoscopy Edgar Gordon MD Work Phone: Start: 04-08-2023 Lipid 1996 panel - Serum or Plasma Mansoor Galarza MD Work Phone: Start: 10-11-2022 History of total hysterectomy S/P total hysterectomy Monie Galarza MD Work Phone: Start: 10-01-2022 Mammography Monie Galarza MD Work Phone: Start: 09-08-2021 Follow-up visit Start: 05-02-2016 Esophagogastroduodenoscopy Monie ayon Work Phone: Start: 02-25-2012 Colonoscopy Monie Galarza MD Work Phone: Start: 02-25-2012 Colonoscopy Monie Galarza Work Phone: Start: 08-01-2011 Hysterectomy Monie Galarza Work Phone: Start: 08-03-1989 Ligation of fallopian tube Monie ayon Work Phone: Decompression of median nerve Monie Galarza Work Phone: History of total hysterectomy S/ P total hysterectomy Monie Galarza Work Phone: Tonsillectomy Monie Frost i Work Phone: Plan of Treatment Date Care Activity Detail Author Start: 2029 RSV High Risk: (Elderly (60+) or Population) (1 - 1-dose 75+ series) RSV High Risk: (Elderly (60+) or Population) (1 - 1-dose 75+ series) [facility] Start: 11-15-2029 Lipid panel Lipid Panel [facility] Start: 04-08-2028 Lipid panel Lipid Panel [facility] Start: 05-25-2026 Screening for malignant neoplasm of colon [facility] Start: 05-07-2026 Screening for osteoporosis Bone Density Scan [facility] Start: 11-21-2025 Medicare Annual Wellness Visit Medicare Annual Wellnes s Visit (AWV) [facility] Start: 11-20-2025 End: 11-20-2025 Patient encounter procedure 11/20/2025 8:00 AM EDT Office Visit [facility] [address] [place] [phone] Monie Galarza MD [address] [place] [address] [facility] Start: 05-07-2025 Screening for malignant neoplasm of breast Mammogram [facility] Start: 04-10-2025 End: 04-10-2025 Patient encounter procedure 04/10/2025 8:45 AM EST Office Visit [facility] [address] [place] [phone] Monie Galarza MD [address] [place] [address] [facility] Start: 03-22-2025 Cyanocobalamin vitamin b-12 Vitamin B-12 [facility] Start: 03-22-2025 Diabetes mellitus screening Diabetes Screening [facility] Start: 03-11-2025 End: 03-11-2025 Patient encounter procedure 03/11/2025 9:45 AM EST Office Visit [facility] [address] [place] [phone] Monie Galarza MD [address] [place] [address] [facility] Start: 02-11-2025 End: 02-11-2025 Patient encounter procedure 02/11/2025 8:15 AM EDT Office Visit [facility] [address] [place] [phone] Monie Galarza MD [address] [place] [address] [facility] Start: 01-21-2025 End: 01-21-2025 Patient encounter procedure 01/21/2025 8:15 AM EDT Office Visit [facility] [address] [place] [phone] Monie Galarza MD [address] [place] [address] [facility] Start: 12-31-2024 COVID-19 Vaccine ( season) COVID-19 Vaccine ( season) [facility] Start: 12-31-2024 Influenza vaccination Influenza Vaccine (#1) [facility] Start: 12-26-2024 Cyanocobalamin vitamin b-12 Vitamin B-12 [facility] Start: 11-20-2024 End: 11-20-2024 Patient encounter procedure 11/20/2024 8:00 AM EDT Office Visit [facility] [address] [place] [phone] Monie Galarza MD [address] [place] [address] [facility] Start: 11-06-2024 Cyanocobalamin vitamin b-12 Vitamin B-12 [facility] Start: 09-28-2024 Diabetes mellitus screening Diabetes Screening [facility] Start: 09-19-2024 Diabetes mellitus screening Diabetes Screening [facility] Start: 06-06-2024 End: 06-06-2024 Patient encounter procedure 06/06/2024 8:00 AM EST Office Visit [facility] [address] [place] [phone] Monie Galarza MD [address] [place] [address] [facility] Start: 05-31-2024 Medicare Annual Wellness Visit Medicare Annual Wellnes s Visit (AWV) [facility] Start: 05-23-2024 End: 05-23-2025 CBC W Auto Differential panel - Blood CBC and Auto Differential Lab Routine B12 deficiency Fatigue, unspecified type Expected: 05/23/2024 (Approximate), Expires: 05/23/2025 [facility] Work Phone: Comment on above: Expected: 05/23/2024 (Approximate), Expi res: 05/23/2025 Start: 05-23-2024 End: 05-23-2025 Cobalamin (Vitamin B12) [Mass/volume] in Serum or Plasma Vitamin B12 Lab Routine B12 deficiency Fatigue, unspecified type Expected: 05/23/2024 (Approximate), Expires: 05/23/2025 [facility] Work Phone: Comment on above: Expected: 05/23/2024 (Approximate), Expi res: 05/23/2025 Start: 05-23-2024 End: 05-23-2025 Comprehensive metabolic 2000 panel - Serum or Plasma Comprehensive Metabolic Panel Lab Routine Benign essential HTN Protein-calorie malnutrition, unspecified severity (Multi) Fatigue, unspecified type Expected: 05/23/2024 (Approximate), Expires: 05/23/2025 [facility] Work Phone: Comment on above: Expected: 05/23/2024 (Approximate), Expi res: 05/23/2025 Start: 05-23-2024 End: 05-23-2025 Lipid 1996 panel - Serum or Plasma Lipid Panel Lab Routine Hypertriglyceridemia Expected: 05/23/2024 (Approximate), Expires: 05/23/2025 [facility] Work Phone: Comment on above: Expected: 05/23/2024 (Approximate), Expi res: 05/23/2025 Start: 05-23-2024 End: 05-23-2025 Magnesium [Mass/volume] in Serum or Plasma Magnesium Lab Routine Fatigue, unspecified type Expected: 05/23/2024 (Approximate), Expires: 05/23/2025 [facility] Work Phone: Comment on above: Expected: 05/23/2024 (Approximate), Expi res: 05/23/2025 Start: 05-23-2024 End: 05-23-2025 TSH with reflex to Free T4 if abnormal TSH with reflex to Free T4 if abnormal Lab Routine Fatigue, unspecified type Expected: 05/23/2024 (Approximate), Expires: 05/23/2025 [facility] Work Phone: Comment on above: Expected: 05/23/2024 (Approximate), Expi res: 05/23/2025 Start: 05-23-2024 End: 05-23-2025 Zinc [Mass/volume] in Serum or Plasma Zinc Lab Routine Fatigue, unspecified type Expected: 05/23/2024 (Approximate), Expires: 05/23/2025 [facility] Work Phone: Comment on above: Expected: 05/23/2024 (Approximate), Expi res: 05/23/2025 Start: 05-23-2024 End: 05-23-2024 Patient encounter procedure 05/23/2024 9:45 AM EST Office Visit [facility] [address] [place] [phone] Monie Galarza MD [address] [place] [address] [facility] Start: 05-09-2024 End: 05-09-2024 Patient encounter procedure 05/09/2024 8:15 AM EST Appointment [address] [phone] [facility] Start: 05-07-2024 End: 05-07-2024 Patient encounter procedure [facility] Start: 04-28-2024 Screening for osteoporosis Bone Density Scan [facility] Start: 04-17-2024 End: 04-17-2024 Patient encounter procedure 04/17/2024 8:15 AM EST Office Visit [facility] [address] [place] [phone] Monie Galarza MD [address] [place] [address] [facility] Start: 04-08-2024 Diabetes mellitus screening Diabetes Screening [facility] Start: 03-27-2024 End: 05-27-2025 DBT Breast - bilateral BI mammo bilateral screening tomosynthesis Imaging Routine Encounter for screening mammogram for breast cancer Expected: 03/27/2024, Expires: 05/27/2025 [facility] Work Phone: Comment on above: Expected: 03/27/2024, Expires: 6 Start: 03-27-2024 End: 03-27-2025 DXA Skeletal system Views for bone density XR DEXA bone density Imaging Routine Post-menopausal Expected: 03/27/2024, Expires: 03/27/2025 [facility] Work Phone: Comment on above: Expected: 03/27/2024, Expires: Start: 03-12-2024 End: 03-12-2024 Patient encounter procedure 03/12/2024 8:30 AM EST Office Visit [facility] [address] [place] [phone] Monie Galarza MD [address] [place] [address] [facility] Start: 01-31-2024 End: 01-30-2025 CBC W Auto Differential panel - Blood CBC and Auto Differential Lab Routine Anemia, unspecified type Expected: 01/31/2024 (Approximate), Expires: 01/30/2025 [facility] Work Phone: Comment on above: Expected: 01/31/2024 (Approximate), Expi res: 01/30/2025 Start: 01-31-2024 End: 01-30-2025 Cobalamin (Vitamin B12) [Mass/volume] in Serum or Plasma Vitamin B12 Lab Routine B12 deficiency Expected: 01/31/2024 (Approximate), Expires: 01/30/2025 [facility] Work Phone: Comment on above: Expected: 01/31/2024 (Approximate), Expi res: 01/30/2025 Start: 01-31-2024 End: 01-30-2025 Comprehensive metabolic 2000 panel - Serum or Plasma Comprehensive Metabolic Panel Lab Routine Benign essential HTN Expected: 01/31/2024 (Approximate), Expires: 01/30/2025 [facility] Work Phone: Comment on above: Expected: 01/31/2024 (Approximate), Expi res: 01/30/2025 Start: 01-31-2024 End: 01-30-2025 Magnesium [Mass/volume] in Serum or Plasma Magnesium Lab Routine Hypomagnesemia Fatigue, unspecified type Expected: 01/31/2024 (Approximate), Expires: 01/30/2025 [facility] Work Phone: Comment on above: Expected: 01/31/2024 (Approximate), Expi res: 01/30/2025 Start: 01-31-2024 End: 01-30-2025 Zinc [Mass/volume] in Serum or Plasma Zinc Lab Routine Fatigue, unspecified type Expected: 01/31/2024 (Approximate), Expires: 01/30/2025 [facility] Work Phone: Comment on above: Expected: 01/31/2024 (Approximate), Expi res: 01/30/2025 Start: 01-31-2024 End: 01-31-2024 Patient encounter procedure 01/31/2024 8:30 AM EDT Office Visit [facility] [address] [place] [phone] Monie Galarza MD [address] [place] [address] [facility] Start: 01-01-2024 COVID-19 Vaccine ( season) COVID-19 Vaccine ( season) [facility] Start: 01-01-2024 COVID-19 Vaccine ( season) COVID-19 Vaccine ( season) [facility] Start: 01-01-2024 Influenza vaccination [facility] Start: 12-08-2023 End: 12-08-2023 Patient encounter procedure 12/08/2023 8:15 AM EDT Office Visit [facility] [address] [place] [phone] Monie Galarza MD [address] [place] [address] [facility] Start: 11-10-2023 End: 11-10-2023 Patient encounter procedure 11/10/2023 8:00 AM EDT Office Visit [facility] [address] [place] [phone] Monie Galarza MD [address] [place] [address] [facility] Start: 10-24-2023 End: 10-24-2023 Patient encounter procedure 10/24/2023 8:30 AM EDT Office Visit [facility] [address] [place] [phone] Monie Galarza MD [address] [place] [address] [facility] Start: 10-18-2023 End: 10-18-2023 Clinical Support 10/18/2023 10:00 AM EDT Clinical Support [facility] [address] [facility] [address] [place] [address] [facility] Start: 10-11-2023 End: 10-10-2024 CBC W Auto Differential panel - Blood CBC and Auto Differential Lab Routine Anemia, unspecified type Expected: 10/11/2023 (Approximate), Expires: 10/10/2024 [facility] Work Phone: Comment on above: Expected: 10/11/2023 (Approximate), Expi res: 10/10/2024 Start: 10-11-2023 End: 10-10-2024 Cobalamin (Vitamin B12) [Mass/volume] in Serum or Plasma Vitamin B12 Lab Routine Anemia, unspecified type Expected: 10/11/2023 (Approximate), Expires: 10/10/2024 [facility] Work Phone: Comment on above: Expected: 10/11/2023 (Approximate), Expi res: 10/10/2024 Start: 10-11-2023 End: 10-10-2024 Comprehensive metabolic 2000 panel - Serum or Plasma Comprehensive Metabolic Panel Lab Routine Hypokalemia Benign essential HTN Hypocalcemia Expected: 10/11/2023 (Approximate), Expires: 10/10/2024 [facility] Work Phone: Comment on above: Expected: 10/11/2023 (Approximate), Expi res: 10/10/2024 Start: 10-11-2023 End: 10-10-2024 Ferritin [Mass/volume] in Serum or Plasma Ferritin Lab Routine Anemia, unspecified type Expected: 10/11/2023 (Approximate), Expires: 10/10/2024 [facility] Work Phone: Comment on above: Expected: 10/11/2023 (Approximate), Expi res: 10/10/2024 Start: 10-11-2023 End: 10-10-2024 Folate [Mass/volume] in Serum or Plasma Folate Lab Routine Anemia, unspecified type Expected: 10/11/2023 (Approximate), Expires: 10/10/2024 [facility] Work Phone: Comment on above: Expected: 10/11/2023 (Approximate), Expi res: 10/10/2024 Start: 10-11-2023 End: 10-10-2024 Iron and Iron binding capacity panel - Serum or Plasma Iron and TIBC Lab Routine Anemia, unspecified type Expected: 10/11/2023 (Approximate), Expires: 10/10/2024 [facility] Work Phone: Comment on above: Expected: 10/11/2023 (Approximate), Expi res: 10/10/2024 Start: 10-11-2023 End: 10-10-2024 Magnesium [Mass/volume] in Serum or Plasma Magnesium Lab Routine Hypomagnesemia Expected: 10/11/2023 (Approximate), Expires: 10/10/2024 [facility] Work Phone: Comment on above: Expected: 10/11/2023 (Approximate), Expi res: 10/10/2024 Start: 10-11-2023 End: 10-10-2024 Methylmalonate [Moles/volume] in Serum or Plasma Methylmalonic Acid Lab Routine Anemia, unspecified type Expected: 10/11/2023 (Approximate), Expires: 10/10/2024 [facility] Work Phone: Comment on above: Expected: 10/11/2023 (Approximate), Expi res: 10/10/2024 Start: 10-11-2023 End: 10-10-2024 TSH with reflex to Free T4 if abnormal TSH with reflex to Free T4 if abnormal Lab Routine Fatigue, unspecified type Expected: 10/11/2023 (Approximate), Expires: 10/10/2024 [facility] Work Phone: Comment on above: Expected: 10/11/2023 (Approximate), Expi res: 10/10/2024 Start: 10-11-2023 End: 10-10-2024 Zinc [Mass/volume] in Serum or Plasma Zinc Lab Routine Fatigue, unspecified type Expected: 10/11/2023 (Approximate), Expires: 10/10/2024 [facility] Work Phone: Comment on above: Expected: 10/11/2023 (Approximate), Expi res: 10/10/2024 Start: 10-06-2023 End: 10-06-2023 Patient encounter procedure 10/06/2023 9:00 AM EDT Office Visit [facility] [address] [place] [phone] Monie Galarza MD [address] [place] [address] [facility] Start: 10-02-2023 Screening for malignant neoplasm of breast Mammogram [facility] Start: 09-12-2023 End: 09-12-2023 Patient encounter procedure 09/12/2023 8:15 AM EDT Office Visit [facility] [address] [place] [phone] Monie Galarza MD [address] [place] [address] [facility] Start: 08-22-2023 End: 08-22-2023 Patient encounter procedure 08/22/2023 8:45 AM EDT Office Visit [facility] [address] [place] [phone] Monie Galarza MD [address] [place] [address] [facility] Start: 06-27-2023 End: 06-27-2023 Patient encounter procedure 06/27/2023 8:15 AM EST Office Visit [facility] [address] [place] [phone] Monie Galarza MD [address] [place] [address] [facility] Start: 06-08-2023 End: 06-08-2023 Patient encounter procedure 06/08/2023 8:15 AM EST Office Visit [facility] [address] [place] [phone] Monie Galarza MD [address] [place] [address] [facility] Start: 06-06-2023 End: 06-06-2023 Patient encounter procedure 06/06/2023 8:30 AM EST Office Visit [facility] [address] [place] [phone] Monie Galarza MD [address] [place] [address] [facility] Start: 05-25-2023 End: 05-25-2023 Patient encounter procedure 05/25/2023 8:00 AM EST Office Visit [facility] [address] [place] [phone] Monie Galarza MD [address] [place] [address] [facility] Start: 05-05-2023 Medicare Annual Wellness Visit Medicare Annual Wellnes s Visit (AWV) [facility] Start: 04-13-2023 End: 04-20-2023 Clostridioides difficile toxin A+B tcdA+tcdB genes [Presence] in Stool by KARIN with probe detection C. difficile, PCR Microbiology Routine Chronic diarrhea Expected: 04/13/2023 (Approximate), Expires: 04/20/2023 [facility] Work Phone: Comment on above: Expected: 04/13/2023 (Approximate), Expi res: 04/20/2023 Start: 04-13-2023 End: 04-13-2024 Colonoscopy Colonoscopy Screening; Average Risk Patient Endoscopy Routine Chronic diarrhea Expected: 04/13/2023 (Approximate), Expires: 04/13/2024 [facility] Work Phone: Comment on above: Expected: 04/13/2023 (Approximate), Expi res: 04/13/2024 Start: 04-13-2023 End: 04-13-2024 Cryptosporidium sp Ag [Presence] in Stool by Immunoassay Cryptosporidium antigen, stool Lab Routine Chronic diarrhea Expected: 04/13/2023 (Approximate), Expires: 04/13/2024 [facility] Work Phone: Comment on above: Expected: 04/13/2023 (Approximate), Expi res: 04/13/2024 Start: 04-13-2023 End: 04-13-2024 Esophagogastroduodenoscopy EGD Endoscopy Routine Gastroesophageal reflux disease without esophagitis Abdominal bloating Chronic nausea Expected: 04/13/2023 (Approximate), Expires: 04/13/2024 [facility] Work Phone: Comment on above: Expected: 04/13/2023 (Approximate), Expi res: 04/13/2024 Start: 04-13-2023 End: 04-13-2024 Ova/Para + Giardia/Cryptosporidium Antigen Ova/Para + Giardia/Cryptosporidium Antigen Lab Routine Chronic diarrhea Expected: 04/13/2023 (Approximate), Expires: 04/13/2024 [facility] Work Phone: Comment on above: Expected: 04/13/2023 (Approximate), Expi res: 04/13/2024 Start: 04-13-2023 End: 04-13-2024 Rotavirus Ag [Presence] in Stool by Immunoassay Rotavirus antigen, stool Lab Routine Chronic diarrhea Expected: 04/13/2023 (Approximate), Expires: 04/13/2024 [facility] Work Phone: Comment on above: Expected: 04/13/2023 (Approximate), Expi res: 04/13/2024 Start: 12-31-2022 COVID-19 Vaccine ( season) COVID-19 Vaccine ( season) [facility] Start: 12-31-2022 Influenza vaccination Influenza Vaccine (#1) [facility] Start: 10-12-2022 Patient encounter procedure MCRANNUAL, Provider: Monie Galarza, Status: Pen, Time: 8:00 AM [facility] Work Phone: Start: 05-18-2022 FUV, Provider: Monie Galarza, Status: Pen, Time: 8:00 AM FUV, Provider: Monie Galarza, Status: Pen, Time: 8:00 AM [facility] Work Phone: Start: 05-04-2022 Patient encounter procedure MCRANNUAL, Provider: Monie Galarza, Status: Pen, Time: 8:00 AM [facility] Work Phone: Start: 04-06-2022 FUV, Provider: Monie Galarza, Status: Pen, Time: 8:00 AM FUV, Provider: Monie Galarza, Status: Pen, Time: 8:00 AM [facility] Work Phone: Start: 02-24-2022 Screening for malignant neoplasm of colon [facility] Start: 12-09-2021 FUV, Provider: Naomy Casillas, Status: Pen, Time: 2:00 PM FUV, Provider: Naomy Casillas, Status: Pen, Time: 2:00 PM [facility] Work Phone: Start: 11-26-2021 NPV, Provider: Naomy Casillas, Status: Pen, Time: 9:30 AM NPV, Provider: Naomy Casillas, Status: Pen, Time: 9:[address] Work Phone: Start: 10-18-2021 COVID-19 Vaccine (5 - Moderna series) COVID-19 Vaccine (5 - Moderna series) [facility] Start: 10-06-2021 FUV, Provider: Monie Galarza, Status: Pen, Time: 8:15 AM FUV, Provider: Monie Galarza, Status: Pen, Time: 8:15 AM [facility] Work Phone: Start: 09-16-2021 NPV, Provider: Steve Aiken, Status: Pen, Time: 10:15 AM NPV, Provider: Steve Aiken, Status: Pen, Time: 10:15 AM [facility] Work Phone: Start: 04-11-2015 MMR Vaccines (1 of 1 - Standard series) MMR Vaccines (1 of 1 - Standard series) [facility] Start: 2014 RSV patients and/or patients aged 60+ years (1 - 1-dose 60+ series) RSV patients and/or patients aged 60+ years (1 - 1-dose 60+ series) [facility] Start: 1976 DTaP/Tdap/Td Vaccines (1 - Tdap) DTaP/Tdap/Td Vaccines (1 - Tdap) [facility] Start: 1972 Diabetes mellitus screening Diabetes Screening [facility] Start: 1972 Hepatitis C screening Hepatitis C Screening [facility] Start: 11-17-1955 Hepatitis B Surface Antibody Hepatitis B Surface Antibody [facility] Start: 1954 Screening for malignant neoplasm of colon [facility] Start: 1954 TB Test TB Test [facility] Start: 1954 Vitamin D25-OH Vitamin D25-OH [facility] Bacteria identified in Blood by Culture Blood Culture Microbiology STAT 10/04/2023 10:18 AM EDT [facility] Work Phone: End: 09-22-2023 Comprehensive metabolic 2000 panel - Serum or Plasma Comprehensive metabolic panel Lab Routine Morning draw (Lab) for 3 Days starting 09/20/2023 until 09/22/2023 [facility] [facility] Work Phone: Comment on above: Morning draw (Lab) for 3 Days starting 0 09/20/2023 until 09/22/2023 End: 10-03-2023 ECG 12 lead ECG 12 lead ECG STAT Once for 1 Occurrences starting 10/03/2023 until 10/03/2023 [facility] Work Phone: Comment on above: Once for 1 Occurrences starting 10/03/19 24 until 10/03/2023 Electrocardiogram, 1 2-lead PRN ACS symptoms Electrocardiogram, 12-lead PRN ACS symptoms ECG Routine As needed until discontinued starting 09/17/2023 [facility] Work Phone: Comment on above: As needed until discontinued starting Electrocardiogram, 1 2-lead PRN ACS symptoms Electrocardiogram, 12-lead PRN ACS symptoms ECG Routine As needed until discontinued starting 10/05/2023 [facility] Work Phone: Comment on above: As needed until discontinued starting End: 09-19-2023 Extra Tubes Extra Tubes Lab Routine Once (Lab) for 1 Occurrences starting 09/19/2023 until 09/19/2023 [facility] Work Phone: Comment on above: Once (Lab) for 1 Occurrences starting until 09/19/2023 End: 10-03-2023 Extra Urine Coles Tube Extra Urine Coles Tube Lab Timed Once for 1 Occurrences starting 10/03/2023 until 10/03/2023 [facility] Work Phone: Comment on above: Once for 1 Occurrences starting 10/03/19 24 until 10/03/2023 Glucose [Mass/volume ] in Serum or Plasma [facility] Work Phone: Comment on above: As needed (Lab) until discontinued start ing 09/18/2023 Every 6hr until disc ontinued starting 09/18/2023 End: 09-22-2023 Magnesium [Mass/volume] in Serum or Plasma Magnesium Lab Routine Morning draw (Lab) for 3 Days starting 09/20/2023 until 09/22/2023 [facility] Work Phone: Comment on above: Morning draw (Lab) for 3 Days starting 0 09/20/2023 until 09/22/2023 End: 10-07-2023 Magnesium [Mass/volume] in Serum or Plasma Magnesium Lab Routine Morning draw (Lab) for 1 Occurrences starting 10/07/2023 until 10/07/2023 [facility] Work Phone: Comment on above: Morning draw (Lab) for 1 Occurrences sta rting 10/07/2023 until 10/07/2023 End: 05-26-2023 Moderate Sedation Moderate Sedation Procedures Routine Once for 1 Occurrences starting 05/26/2023 until 05/26/2023 [facility] Work Phone: Comment on above: Once for 1 Occurrences starting 05/26/19 24 until 05/26/2023 End: 09-22-2023 Phosphate [Mass/volume] in Serum or Plasma Phosphorus Lab Routine Morning draw (Lab) for 3 Days starting 09/20/2023 until 09/22/2023 [facility] Work Phone: Comment on above: Morning draw (Lab) for 3 Days starting 0 09/20/2023 until 09/22/2023 End: 05-26-2023 Pulse oximetry, continuous Pulse oximetry, continuous Respiratory Care Routine Continuous until discontinued starting 05/26/2023 [facility] Work Phone: Comment on above: Continuous until discontinued starting 0 05/26/2023 End: 05-26-2023 Pulse oximetry, spot Pulse oximetry, spot Respiratory Care Routine Once for 1 Occurrences starting 05/26/2023 until 05/26/2023 [facility] Work Phone: Comment on above: Once for 1 Occurrences starting 05/26/19 24 until 05/26/2023 End: 10-07-2023 Renal function 2000 panel - Serum or Plasma Renal Function Panel Lab Routine Morning draw (Lab) for 1 Occurrences starting 10/07/2023 until 10/07/2023 [facility] Work Phone: Comment on above: Morning draw (Lab) for 1 Occurrences sta rting 10/07/2023 until 10/07/2023 End: 10-03-2023 Stool Pathogen Panel, PCR [facility] Work Phone: Comment on above: Once (Lab) for 1 Occurrences starting until 10/03/2023 Surgical pathology study [facility] Work Phone: Comment on above: Release Upon Ordering for 1 Occurrences starting 05/26/2023 End: 10-03-2023 Urinalysis complete W Reflex Culture panel - Urine [facility] Work Phone: Comment on above: Once (Lab) for 1 Occurrences starting until 10/03/2023 Once for 1 Occurrenc es starting 10/03/2023 until 10/03/2023 Immunizations Immunization Date Immunization Notes Care Provider Fa marcelino 01-21-2025 influenza, high dose seasonal, preservative-free Monie Galarza MD Work Phone: [facility] Work Phone: 10-22-2021 Prevnar 20 0.5 ML Intramuscular Suspension Prefilled Syringe Monie Zarrabi Work Phone: [facility] Work Phone: 10-22-2021 zoster vaccine recombinant Monie Zarrabi Work Phone: [facility] Work Phone: 08-23-2021 Moderna COVID-19 Vaccine 100 MCG/0.5ML Intramuscular Suspension Monie Zarrabi Work Phone: [facility] Work Phone: 08-23-2021 zoster vaccine recombinant Monie Zarrabi Work Phone: [facility] Work Phone: 04-16-2021 Moderna COVID-19 Vaccine 100 MCG/0.5ML Intramuscular Suspension Monie Zarrabi Work Phone: [facility] Work Phone: 08-15-2020 Moderna COVID-19 Vaccine 100 MCG/0.5ML Intramuscular Suspension Monie Zarrabi Work Phone: [facility] Work Phone: 07-16-2020 Moderna COVID-19 Vaccine 100 MCG/0.5ML Intramuscular Suspension Monie Zarrabi Work Phone: [facility] Work Phone: 03-14-2015 zoster vaccine, live Monie Zarrabi Work Phone: [facility] Comment on above: Series: Payers Date Payer Category Payer Unknown [id number] 2024 Self-pay 2022 Medicare [employer] MEDICARE [id number] 2022-Present [id number] [place] [address] [id number] 2022 Medicare (Managed Care) [facility] [id number] 2021 Private Health Insurance [id number] 2017 Unknown 1954 Unknown [id number] 2.16.840.1.146036.3.579.2 .1068 1954 Unknown [id number] 2.16.840.1.798055.3.579.2 .1068 1954 Unknown [id number] 2.16.840.1.667150.3.579.2 .1068 1954 Unknown [id number] 2.16.840.1.212982.3.579.2 .1068 1954 Unknown [id number] 2.16.840.1.533708.3.579.2 .1242 1954 Unknown [id number] 2.16.840.1.680296.3.579.2 .1242 1954 Unknown [id number] 2.16.840.1.275362.3.579.2 .1242 1954 Unknown [id number] 2.16.840.1.872601.3.579.2 .1242 1954 Unknown [id number] 2.16.840.1.826828.3.579.2 .1242 1954 Unknown [id number] 2.16.840.1.410629.3.579.2 .1242 1954 Unknown [id number] 2.16.840.1.485673.3.579.2 .1244 1954 Unknown [id number] 2..840.1.039021.3.579.2 .1244 1954 Unknown [id number] 2..840.1.184617.3.579.2 .1244 1954 Unknown [id number] 2..840.1.623855.3.579.2 .1244 1954 Unknown [id number] 2.840.1.194086.3.579.2 .1244 1954 Unknown [id number] 2.840.1.096045.3.579.2 .1243 1954 Unknown [id number] 2.840.1.271495.3.579.2 .1243 1954 Unknown [id number] 2.840.1.614829.3.579.2 .1243 1954 Unknown [id number] 2.840.1.427579.3.579.2 .1243 1954 Unknown [id number] 2.840.1.761459.3.579.2 .1243 1954 Unknown [id number] 2.840.1.427744.3.579.2 .1243 1954 Unknown [id number] 2.840.1.462806.3.579.2 .1243 1954 Unknown [id number] 2.840.1.767901.3.579.2 .124 Unknown [id number] Unknown [id number] 2.16840.1.031919.3.579.2 .462 Unknown [id number] 2.16840.1.732252.3.579.2 .462 Unknown [id number] 2.840.1.190924.3.579.2 .462 Unknown [id number] 2.16.840.1.500359.3.579.2 .462 Unknown [id number] 2.16.840.1.276009.3.579.2 .462 Social History Date Type Detail Facility Start: 04-13-2023 End: 10-05-2023 Never used tobacco Never used tobacco [facility] Work Phone: Start: 10-12-2022 [facility] Work Phone: Start: 10-12-2022 Tobacco use and exposure Smokeless tobacco non-user [facility] Work Phone: Start: 04-13-2023 End: 03-11-2025 Alcohol intake Lifetime non-drinker (finding) [facility] Work Phone: Start: 04-13-2023 End: 10-05-2023 Tobacco use panel [facility] Work Phone: Start: 1955 Sex Assigned At Not on file [facility] Work Phone: Start: 04-03-2023 End: 05-23-2024 Exposure to SARS-CoV-2 (event) Not sure [facility] How often to you hav e a drink containing alcohol? Never [facility] Start: 03-27-2022 How many standard drinks containing alcohol do you have on a typical day? Patient does not drink [facility] Work Phone: In the past 12 month s, was there a time when you were not able to pay the mortgage or rent on time? No [facility] Work Phone: [facility] if ever smoked [facility] Work Phone: Start: 03-27-2022 End: 07-12-2024 Sex Female (finding) [facility] Start: 1955 Sex Assigned At Female W [facility] Functional Status Date Assessment Result Facility 03-11-2025 Patient Health Quest ionnaire 2 item (PHQ-2) [Reported] [facility] Work Phone: 03-11-2025 Functional status 145/83 025 9:49 AM Bonnie Lynne, [facility] 145/83 [facility] Work Phone: 03-11-2025 Vital signs 90 03/11/2025 9: 49 AM Bonnie Lynne, [facility] Work Phone: 02-11-2025 Patient Health Quest ionnaire 2 item (PHQ-2) [Reported] [facility] Work Phone: 02-11-2025 Functional status 171/84 [facility] Work Phone: 02-11-2025 Vital signs 67 02/11/2025 8: 10 AM Sumaya Moore MA [facility] Work Phone: 02-11-2025 [facility] Work Phone: 01-21-2025 Patient Health Quest ionnaire 2 item (PHQ-2) [Reported] [facility] Work Phone: 11-20-2024 Patient Health Quest ionnaire 2 item (PHQ-2) [Reported] [facility] 09-29-2023 Are you deaf, or do you have serious difficulty hearing No 09/29/2023 12:43 PM Bea Soliz, MAUREEN No [facility] 09-29-2023 Are you blind, or do you have serious difficulty seeing, even when wearing glasses No 09/29/2023 12:43 PM Bea Soliz, MAUREEN No [facility] Work Phone: 09-29-2023 Do you have serious difficulty walking or climbing stairs No 09/29/2023 12:43 PM Bea Soliz, RN No [facility] Work Phone: 09-29-2023 Do you have difficul ty dressing or bathing No 09/29/2023 12:43 PM EDT Bea Alvarez, MAUREEN No [facility] Work Phone: 09-29-2023 Because of a physica l, mental, or emotional condition, do you have difficulty doing errands alone such as visiting a physician's office or shopping No 09/29/2023 12:43 PM EDT Bea Alvarez, MAURENE No [facility] Work Phone: [facility] Work Phone: Mental Status Date Assessment Result Facility 09-29-2023 Because of a physica l, mental, or emotional condition, do you have serious difficulty concentrating, remembering, or making decisions No 09/29/2023 12:43 PM EDT Bea Alvarez RN No [facility] Work Phone: Clinical Notes 04-13-2023 to 03-11-2025 Monie Galarza MD - 03/11/2025 9:45 AM Amalia Galarza MD - 02/11/2025 8:15 AM Tona Galarza MD - 01/21/2025 8:15 AM Tona Galarza MD - 11/20/2024 8:00 AM EDT Note Date & Type Note Facility 03-11-2025 History of Present illness Narrative Subjective Patient ID: Kamila Patel is a 69 y.o. female who presents for Follow-up (1 MO BP CHECK). HPI HTN F/U. TOLERATES THE CURRENT TX. BP AT HOME IS AROUND 150/90. NEEDS MONTHLY B12 INJECTION. Review of Systems Constitutional: Negative for chills and fever. HENT: Negative. Negative for congestion, postnasal drip and rhinorrhea. Eyes: Negative. Negative for visual disturbance. Respiratory: Negative for cough, shortness of breath and wheezing. Cardiovascular: Negative. Negative for chest pain, palpitations and leg swelling. Gastrointestinal: Negative. Negative for abdominal distention, abdominal pain, constipation, diarrhea, nausea and vomiting. Endocrine: Negative. Genitourinary: Negative for dysuria and urgency. Musculoskeletal: Negative. Negative for back pain. Skin: Negative. Negative for rash. Allergic/Immunologic: Negative for immunocompromised state. Neurological: Negative. Negative for dizziness, weakness, light-headedness and headaches. Psychiatric/Behavioral: Negative. Negative for agitation. Objective Physical Exam Constitutional: General: She is not in acute distress. HENT: Head: Normocephalic. Nose: Nose normal. Mouth/Throat: Mouth: Mucous membranes are moist. Eyes: Conjunctiva/sclera: Conjunctivae normal. Pupils: Pupils are equal, round, and reactive to light. Cardiovascular: Rate and Rhythm: Normal rate and regular rhythm. Pulses: Normal pulses. Heart sounds: Normal heart sounds. Pulmonary: Effort: No respiratory distress. Breath sounds: No wheezing. Chest: Chest wall: No tenderness. Abdominal: General: Abdomen is flat. Bowel sounds are normal. Palpations: Abdomen is soft. Tenderness: There is no abdominal tenderness. Musculoskeletal: General: No tenderness. Normal range of motion. Cervical back: Normal range of motion. Lymphadenopathy: Cervical: No cervical adenopathy. Skin: General: Skin is warm and dry. Findings: No rash. Neurological: General: No focal deficit present. Mental Status: She is alert. Mental status is at baseline. Psychiatric: Mood and Affect: Mood normal. Behavior: Behavior normal. Assessment/Plan 1. Benign essential HTN amLODIPine (Norvasc) 10 mg tablet 2. B12 deficiency cyanocobalamin (Vitamin B-12) injection 1,000 mcg HTN addressed as follow: MONITOR BP GOAL BP LOWER THAN 130/80 LOW SALT EXERCISE DAILY. WILL INCREASE THE NORVASC TO 10 MG DAILY . ADVISED FOR RELAXATION TECHNIQUES AND TO CUT DOWN ON CAFFEINE. 1 mon documented in this encounter [facility] Work Phone: 02-11-2025 History of Present illness Narrative Subjective Patient ID: Kamila Patel is a 69 y.o. female who presents for Follow-up (3 WEEK FU ). HPI HTN F/U. BP AT HOME IS MUCH LOWER PER PT. HAS MILD HEADACHE TODAY 07/09. NEEDS THE MONTHLY B12 INJECTION. Review of Systems Constitutional: Negative for chills and fever. HENT: Negative. Negative for congestion, postnasal drip and rhinorrhea. Eyes: Negative. Negative for visual disturbance. Respiratory: Negative for cough, shortness of breath and wheezing. Cardiovascular: Negative. Negative for chest pain, palpitations and leg swelling. Gastrointestinal: Negative. Negative for abdominal distention, abdominal pain, constipation, diarrhea, nausea and vomiting. Endocrine: Negative. Genitourinary: Negative for dysuria and urgency. Musculoskeletal: Negative. Negative for back pain. Skin: Negative. Negative for rash. Allergic/Immunologic: Negative for immunocompromised state. Neurological: Positive for headaches. Negative for dizziness, weakness and light-headedness. Psychiatric/Behavioral: Negative. Negative for agitation. Objective Physical Exam Constitutional: General: She is not in acute distress. HENT: Head: Normocephalic. Nose: Nose normal. Mouth/Throat: Mouth: Mucous membranes are moist. Eyes: Conjunctiva/sclera: Conjunctivae normal. Pupils: Pupils are equal, round, and reactive to light. Cardiovascular: Rate and Rhythm: Normal rate and regular rhythm. Pulses: Normal pulses. Heart sounds: Normal heart sounds. Pulmonary: Effort: No respiratory distress. Breath sounds: No wheezing. Chest: Chest wall: No tenderness. Abdominal: General: Abdomen is flat. Bowel sounds are normal. Palpations: Abdomen is soft. Tenderness: There is no abdominal tenderness. Musculoskeletal: General: No tenderness. Normal range of motion. Cervical back: Normal range of motion. Lymphadenopathy: Cervical: No cervical adenopathy. Skin: General: Skin is warm and dry. Findings: No rash. Neurological: General: No focal deficit present. Mental Status: She is alert. Mental status is at baseline. Psychiatric: Mood and Affect: Mood normal. Behavior: Behavior normal. Assessment/Plan 1. Benign essential HTN amLODIPine (Norvasc) 5 mg tablet 2. B12 deficiency cyanocobalamin (Vitamin B-12) injection 1,000 mcg HTN addressed as follow: MONITOR BP GOAL BP LOWER THAN 130/80 LOW SALT EXERCISE DAILY. WILL INCREASE THE NORVASC TO 7.5 MG DAILY. ADVISED FOR RELAXATION TECHNIQUES (DOESN'T DRINK MUCH CAFFEINE). TO BRING HER BP MONITOR FOR NEXT VISIT. MDM 1) COMPLEXITY: MORE THAN 1 STABLE CHRONIC CONDITION ADDRESSED 2)DATA: TESTS INTERPRETED AND OR ORDERED, TOOK INDEPENDENT HISTORY OR RECORDS REVIEWED 3)RISK: MODERATE RISK DUE TO NATURE OF MEDICAL CONDITIONS/COMORBIDITY OR MEDICATIONS ORDERED OR SURGICAL OR PROCEDURE REFERRAL, . 1 mon documented in this encounter [facility] Work Phone: 01-21-2025 History of Present illness Narrative Subjective Patient ID: Kamila Patel is a 69 y.o. female who presents for Follow-up (2 MO F/U). HPI Weight LOSS. CHRONIC DIARRHEA IS STILL PRESENT . CHOLESTYRAMINE WAS STOPPED BY GI (S/P CHOLECYSTECTOMY),AND DIARRHEA HASN'T CHANGED . NEEDS THE MONTHLY B12 INJECTION WITH FLU VACCINE TODAY. Review of Systems Constitutional: Negative for chills and fever. WEIGHT LOSS HENT: Negative. Negative for congestion, postnasal drip and rhinorrhea. Eyes: Negative. Negative for visual disturbance. Respiratory: Negative for cough, shortness of breath and wheezing. Cardiovascular: Negative. Negative for chest pain, palpitations and leg swelling. Gastrointestinal: Positive for diarrhea. Negative for abdominal distention, abdominal pain, constipation, nausea and vomiting. Endocrine: Negative. Genitourinary: Negative for dysuria and urgency. Musculoskeletal: Negative. Negative for back pain. Skin: Negative. Negative for rash. Allergic/Immunologic: Negative for immunocompromised state. Neurological: Negative. Negative for dizziness, weakness, light-headedness and headaches. Psychiatric/Behavioral: Negative. Negative for agitation. Objective Physical Exam Constitutional: General: She is not in acute distress. HENT: Head: Normocephalic. Nose: Nose normal. Mouth/Throat: Mouth: Mucous membranes are moist. Eyes: Conjunctiva/sclera: Conjunctivae normal. Pupils: Pupils are equal, round, and reactive to light. Cardiovascular: Rate and Rhythm: Normal rate and regular rhythm. Pulses: Normal pulses. Heart sounds: Normal heart sounds. Pulmonary: Effort: No respiratory distress. Breath sounds: No wheezing. Chest: Chest wall: No tenderness. Abdominal: General: Abdomen is flat. Bowel sounds are normal. Palpations: Abdomen is soft. Tenderness: There is no abdominal tenderness. Musculoskeletal: General: No tenderness. Normal range of motion. Cervical back: Normal range of motion. Lymphadenopathy: Cervical: No cervical adenopathy. Skin: General: Skin is warm and dry. Findings: No rash. Neurological: General: No focal deficit present. Mental Status: She is alert. Mental status is at baseline. Psychiatric: Mood and Affect: Mood normal. Behavior: Behavior normal. Assessment/Plan 1. Benign essential HTN amLODIPine (Norvasc) 5 mg tablet 2. Hypokalemia potassium chloride CR (Klor-Con M20) 20 mEq ER tablet 3. B12 deficiency cyanocobalamin (Vitamin B-12) injection 1,000 mcg 4. Need for influenza vaccination Flu vaccine, trivalent, preservative free, HIGH-DOSE, age 65y+ (Fluzone) 5. Chronic diarrhea HTN addressed as follow: MONITOR BP GOAL BP LOWER THAN 130/80 LOW SALT EXERCISE DAILY. WILL INCREASE THE NORVASC TO 5 MG DAILY. ADVISED TO HAVE HIGH PROTEIN DIET AND TO BUILD UP MORE MUSCLES , DAILY EXERCISE. MDM 1) COMPLEXITY: MORE THAN 1 STABLE CHRONIC CONDITION ADDRESSED 2)DATA: TESTS INTERPRETED AND OR ORDERED, TOOK INDEPENDENT HISTORY OR RECORDS REVIEWED 3)RISK: MODERATE RISK DUE TO NATURE OF MEDICAL CONDITIONS/COMORBIDITY OR MEDICATIONS ORDERED OR SURGICAL OR PROCEDURE REFERRAL, . 3 week documented in this encounter [facility] Work Phone: 12-18-2024 Progress note [facility] 11-20-2024 Evaluation + Plan note Associated Problem(s): Benign essential HTN Orders: amLODIPine (Norvasc) 2.5 mg tablet; Take 1 tablet (2.5 mg) by mouth once daily. [facility] Work Phone: 11-20-2024 Evaluation + Plan note Associated Problem(s): Hypertriglyceridemia Orders: fenofibrate (Tricor) 48 mg tablet; Take 1 tablet (48 mg) by mouth once daily. [facility] Work Phone: 11-20-2024 Evaluation + Plan note Associated Problem(s): B12 deficiency Orders: cyanocobalamin (Vitamin B-12) injection 1,000 mcg [facility] Work Phone: 11-20-2024 Evaluation + Plan note Associated Problem(s): Fatigue [facility] Work Phone: 11-20-2024 History of Present illness Narrative Subjective Reason for Visit: Kamila Patel is an 69 y.o. female here for a Medicare Wellness visit. Past Medical, Surgical, and Family History reviewed and updated in chart. Reviewed all medications by prescribing practitioner or clinical pharmacist (such as prescriptions, OTCs, herbal therapies and supplements) and documented in the medical record. HPI LAB F/U . CHRONIC FATIGUE, CLONIDINE MAKES IT WORSE ,BECOMES VERY SLEEPY AFTER TAKING IT. HAS GI F/U FOR CHRONIC DIARRHEA. MEDICARE WELLNESS EXAM. Patient Care Team: Monie Galarza MD as PCP - General Monie Galarza MD as PCP - [employer] PCP Review of Systems Constitutional: Positive for fatigue. Negative for chills and fever. HENT: Negative. Negative for congestion, postnasal drip and rhinorrhea. Eyes: Negative. Negative for visual disturbance. Respiratory: Negative for cough, shortness of breath and wheezing. Cardiovascular: Negative. Negative for chest pain, palpitations and leg swelling. Gastrointestinal: Positive for diarrhea. Negative for abdominal distention, abdominal pain, constipation, nausea and vomiting. Endocrine: Negative. Genitourinary: Negative for dysuria and urgency. Musculoskeletal: Negative. Negative for back pain. Skin: Negative. Negative for rash. Allergic/Immunologic: Negative for immunocompromised state. Neurological: Negative. Negative for dizziness, weakness, light-headedness and headaches. Psychiatric/Behavioral: Negative. Negative for agitation. Objective Vitals: BP 122/72 (BP Location: Left arm, Patient Position: Sitting, BP Cuff Size: Adult) Pulse 76 Ht (!) 1.549 m (5' 1) Wt 49.4 kg (109 lb) LMP (LMP Unknown) BMI 20.60 kg/m Physical Exam Constitutional: General: She is not in acute distress. HENT: Head: Normocephalic. Nose: Nose normal. Mouth/Throat: Mouth: Mucous membranes are moist. Eyes: Conjunctiva/sclera: Conjunctivae normal. Pupils: Pupils are equal, round, and reactive to light. Cardiovascular: Rate and Rhythm: Normal rate and regular rhythm. Pulses: Normal pulses. Heart sounds: Normal heart sounds. Pulmonary: Effort: No respiratory distress. Breath sounds: No wheezing. Chest: Chest wall: No tenderness. Abdominal: General: Abdomen is flat. Bowel sounds are normal. Palpations: Abdomen is soft. Tenderness: There is no abdominal tenderness. Musculoskeletal: General: No tenderness. Normal range of motion. Cervical back: Normal range of motion. Lymphadenopathy: Cervical: No cervical adenopathy. Skin: General: Skin is warm and dry. Findings: No rash. Neurological: General: No focal deficit present. Mental Status: She is alert. Mental status is at baseline. Psychiatric: Mood and Affect: Mood normal. Behavior: Behavior normal. Assessment & Plan Routine general medical examination at health care facility Orders: 1 Year Follow Up In Primary Care - Wellness Exam; Future Benign essential HTN Orders: amLODIPine (Norvasc) 2.5 mg tablet; Take 1 tablet (2.5 mg) by mouth once daily. Hypertriglyceridemia Orders: fenofibrate (Tricor) 48 mg tablet; Take 1 tablet (48 mg) by mouth once daily. B12 deficiency Orders: cyanocobalamin (Vitamin B-12) injection 1,000 mcg Chronic fatigue TEST RESULTS WERE DISCUSSED. ADVISED TO HAVE LOW FAT AND LOW CALORIE DIET , DAILY EXERCISE. WILL START FENOFIBRATE 48 MG DAILY. ALL ASSESSED CHRONIC CONDITIONS ARE STABLE OR ADDRESSED. WILL CHANGE HE CLONIDINE TO NORVASC 2.5 MG DAILY. WILL DO MONTHLY B12 INJECTION . Advanced Care planning discussed with patient,diagnosis , treatment and prognosis discussed with pt for 16 minutes,pt has capacity to make own decision, pt does not have an AD, advised to set one up and bring a copy for the chart. MDM 1) COMPLEXITY: MORE THAN 1 STABLE CHRONIC CONDITION ADDRESSED 2)DATA: TESTS INTERPRETED AND OR ORDERED, TOOK INDEPENDENT HISTORY OR RECORDS REVIEWED 3)RISK: MODERATE RISK DUE TO NATURE OF MEDICAL CONDITIONS/COMORBIDITY OR MEDICATIONS ORDERED OR SURGICAL OR PROCEDURE REFERRAL, . 2 mon documented in this encounter [facility] Work Phone: 11-20-2024 Miscellaneous Notes Associated Problem(s): Benign essential HTN Orders: amLODIPine (Norvasc) 2.5 mg tablet; Take 1 tablet (2.5 mg) by mouth once daily. Associated Problem(s): Hypertriglyceridemia Orders: fenofibrate (Tricor) 48 mg tablet; Take 1 tablet (48 mg) by mouth once daily. Associated Problem(s): B12 deficiency Orders: cyanocobalamin (Vitamin B-12) injection 1,000 mcg Associated Problem(s): Fatigue documented in this encounter [facility] Work Phone: 09-18-2024 Evaluation note Diagnosis Onset Date Resolution Chronic diarrhea chronic August 9:16am Chronic diarrhea chronic November 302024 8:49am [facility] Work Phone: [phone] Evaluation note* Diagnosis Onset Date Resolution Status Admit Date Chronic diarrhea chronic June 12, 2024 9:22am [facility] Work Phone: [phone] History of Present illness Narrative* Monie Galarza MD - 05/23/2024 9:45 AM EST Subjective Patient ID: Kamila Patel is a 68 y.o. female who presents for Follow-up (One month follow up with blood pressure check ). HPI HTN F/U, WORSENING CHRONIC FATIGUE. COULDN'T HANDLE THE CLONIDINE 0.2 MG BID AND IT WAS REDUCED BACK TO 00.1 MG BID. NEEDS THE MONTHLY B12 INJECTION TODAY. Review of Systems Constitutional: Positive for fatigue. Negative for chills and fever. HENT: Negative. Negative for congestion, postnasal drip and rhinorrhea. Eyes: Negative. Negative for visual disturbance. Respiratory: Negative for cough, shortness of breath and wheezing. Cardiovascular: Negative. Negative for chest pain, palpitations and leg swelling. Gastrointestinal: Negative. Negative for abdominal distention, abdominal pain, constipation, diarrhea, nausea and vomiting. Endocrine: Negative. Genitourinary: Negative for dysuria and urgency. Musculoskeletal: Negative. Negative for back pain. Skin: Negative. Negative for rash. Allergic/Immunologic: Negative for immunocompromised state. Neurological: Negative. Negative for dizziness, weakness, light-headedness and headaches. Psychiatric/Behavioral: Negative. Negative for agitation. Objective Physical Exam Constitutional: General: She is not in acute distress. HENT: Head: Normocephalic. Nose: Nose normal. Mouth/Throat: Mouth: Mucous membranes are moist. Eyes: Conjunctiva/sclera: Conjunctivae normal. Pupils: Pupils are equal, round, and reactive to light. Cardiovascular: Rate and Rhythm: Normal rate and regular rhythm. Pulses: Normal pulses. Heart sounds: Normal heart sounds. Pulmonary: Effort: No respiratory distress. Breath sounds: No wheezing. Chest: Chest wall: No tenderness. Abdominal: General: Abdomen is flat. Bowel sounds are normal. Palpations: Abdomen is soft. Tenderness: There is no abdominal tenderness. Musculoskeletal: General: No tenderness. Normal range of motion. Cervical back: Normal range of motion. Lymphadenopathy: Cervical: No cervical adenopathy. Skin: General: Skin is warm and dry. Findings: No rash. Neurological: General: No focal deficit present. Mental Status: She is alert. Mental status is at baseline. Psychiatric: Mood and Affect: Mood normal. Behavior: Behavior normal. Assessment/Plan 1. Fatigue, unspecified type Magnesium Comprehensive Metabolic Panel Vitamin B12 CBC and Auto Differential TSH with reflex to Free T4 if abnormal Zinc 2. B12 deficiency cyanocobalamin (Vitamin B-12) injection 1,000 mcg Vitamin B12 CBC and Auto Differential 3. Benign essential HTN cloNIDine (Catapres) 0.1 mg tablet Comprehensive Metabolic Panel 4. Protein-calorie malnutrition, unspecified severity (Multi) Comprehensive Metabolic Panel 5. Hypertriglyceridemia Lipid Panel HTN addressed as follow: MONITOR BP GOAL BP LOWER THAN 130/80 LOW SALT EXERCISE DAILY ADVISED FOR RELAXATION TECHNIQUES AND TO CUT DOWN ON CAFFEINE. OFFERED EARLIER APPOINTMENT WITH WORSENING FATIGUE, PT REFUSED . ADVISED TO CONTINUE THE MONTHLY B12 INJECTION. EXPLAINED THE DIFFERENTIAL DX OF FATIGUE. MDM 1) COMPLEXITY: 1 UNDIAGNOSED NEW PROBLEM WITH UNCERTAIN PROGNOSIS 2)DATA: TESTS INTERPRETED AND OR ORDERED, TOOK INDEPENDENT HISTORY OR RECORDS REVIEWED 3)RISK: MODERATE RISK DUE TO NATURE OF MEDICAL CONDITIONS/COMORBIDITY OR MEDICATIONS ORDERED OR SURGICAL OR PROCEDURE REFERRAL, . 6 mon documented in this [facility] Work Phone: [phone] 266-726912-17-2024 History of Present illness Narrative* Monie Galarza MD - 04/17/2024 8:15 AM EST Subjective Patient ID: Kamila Patel is a 68 y.o. female who presents for Follow-up (2-3 wk bp check). HPI HTN F/U. BP AT HOME IS AROUND 140-150/80-85. TOLERATES THE TX WELL. NEEDS THE MONTHLY B12 INJECTION. Review of Systems Constitutional: Negative for chills and fever. HENT: Negative. Negative for congestion, postnasal drip and rhinorrhea. Eyes: Negative. Negative for visual disturbance. Respiratory: Negative for cough, shortness of breath and wheezing. Cardiovascular: Negative. Negative for chest pain, palpitations and leg swelling. Gastrointestinal: Negative. Negative for abdominal distention, abdominal pain, constipation, diarrhea, nausea and vomiting. Endocrine: Negative. Genitourinary: Negative for dysuria and urgency. Musculoskeletal: Negative. Negative for back pain. Skin: Negative. Negative for rash. Allergic/Immunologic: Negative for immunocompromised state. Neurological: Negative. Negative for dizziness, weakness, light-headedness and headaches. Psychiatric/Behavioral: Negative. Negative for agitation. Objective Physical Exam Constitutional: General: She is not in acute distress. HENT: Head: Normocephalic. Nose: Nose normal. Mouth/Throat: Mouth: Mucous membranes are moist. Eyes: Conjunctiva/sclera: Conjunctivae normal. Pupils: Pupils are equal, round, and reactive to light. Cardiovascular: Rate and Rhythm: Normal rate and regular rhythm. Pulses: Normal pulses. Heart sounds: Normal heart sounds. Pulmonary: Effort: No respiratory distress. Breath sounds: No wheezing. Chest: Chest wall: No tenderness. Abdominal: General: Abdomen is flat. Bowel sounds are normal. Palpations: Abdomen is soft. Tenderness: There is no abdominal tenderness. Musculoskeletal: General: No tenderness. Normal range of motion. Cervical back: Normal range of motion. Lymphadenopathy: Cervical: No cervical adenopathy. Skin: General: Skin is warm and dry. Findings: No rash. Neurological: General: No focal deficit present. Mental Status: She is alert. Mental status is at baseline. Psychiatric: Mood and Affect: Mood normal. Behavior: Behavior normal. Assessment/Plan 1. Benign essential HTN cloNIDine (Catapres) 0.2 mg tablet 2. B12 deficiency cyanocobalamin (Vitamin B-12) injection 1,000 mcg HTN addressed as follow: MONITOR BP GOAL BP LOWER THAN 130/80 LOW SALT EXERCISE DAILY, FALL PRECAUTION . WILL INCREASE THE CLONIDINE TO 0.2 MG BID. ADVISED TO HAVE LOW FAT AND LOW CALORIE DIET . ADVISED FOR RELAXATION TECHNIQUES AND TO CUT DOWN ON CAFFEINE. MDM 1) COMPLEXITY: MORE THAN 1 STABLE CHRONIC CONDITION ADDRESSED 2)DATA: TESTS INTERPRETED AND OR ORDERED, TOOK INDEPENDENT HISTORY OR RECORDS REVIEWED 3)RISK: MODERATE RISK DUE TO NATURE OF MEDICAL CONDITIONS/COMORBIDITY OR MEDICATIONS ORDERED OR SURGICAL OR PROCEDURE REFERRAL, . 1 mon documented in this [facility] Work Phone: [phone] History of Present illness Narrative* Monie Galarza MD - 03/27/2024 10:15 AM EST Subjective Patient ID: Kamila Patel is a 68 y.o. female who presents for Follow-up (1 MONTH FOLLOW UP + RECENT LABS DONE HAS SEEN GASTRO). HPI Lab and HTN F/U. MED REFILL. GETS COLESTIPOL FROM GI FOR CHRONIC DIARRHEA, WHICH HELPS SOME. CHRONIC FATIGUE. Review of Systems Constitutional: Positive for fatigue. Negative for chills and fever. HENT: Negative. Negative for congestion, postnasal drip and rhinorrhea. Eyes: Negative. Negative for visual disturbance. Respiratory: Negative for cough, shortness of breath and wheezing. Cardiovascular: Negative. Negative for chest pain, palpitations and leg swelling. Gastrointestinal: Positive for diarrhea. Negative for abdominal distention, abdominal pain, constipation, nausea and vomiting. Endocrine: Negative. Genitourinary: Negative for dysuria and urgency. Musculoskeletal: Negative. Negative for back pain. Skin: Negative. Negative for rash. Allergic/Immunologic: Negative for immunocompromised state. Neurological: Negative. Negative for dizziness, weakness, light-headedness and headaches. Psychiatric/Behavioral: Negative. Negative for agitation. Objective Physical Exam Constitutional: General: She is not in acute distress. HENT: Head: Normocephalic. Nose: Nose normal. Mouth/Throat: Mouth: Mucous membranes are moist. Eyes: Conjunctiva/sclera: Conjunctivae normal. Pupils: Pupils are equal, round, and reactive to light. Cardiovascular: Rate and Rhythm: Normal rate and regular rhythm. Pulses: Normal pulses. Heart sounds: Normal heart sounds. Pulmonary: Effort: No respiratory distress. Breath sounds: No wheezing. Chest: Chest wall: No tenderness. Abdominal: General: Abdomen is flat. Bowel sounds are normal. Palpations: Abdomen is soft. Tenderness: There is no abdominal tenderness. Musculoskeletal: General: No tenderness. Normal range of motion. Cervical back: Normal range of motion. Lymphadenopathy: Cervical: No cervical adenopathy. Skin: General: Skin is warm and dry. Findings: No rash. Neurological: General: No focal deficit present. Mental Status: She is alert. Mental status is at baseline. Psychiatric: Mood and Affect: Mood normal. Behavior: Behavior normal. Assessment/Plan 1. Benign essential HTN lisinopril 20 mg tablet cloNIDine (Catapres) 0.1 mg tablet 2. B12 deficiency cyanocobalamin (Vitamin B-12) injection 1,000 mcg 3. Encounter for screening mammogram for breast cancer BI mammo bilateral screening tomosynthesis 4. Post-menopausal XR DEXA bone density 5. Fatigue, unspecified type TEST RESULTS WERE DISCUSSED. EXPLAINED THE NEED FOR MONTHLY B12 INJECTION. ADVISED TO START THE OTCB12 TOO . EXPLAINED B12 DEFICIENCY CAN CAUSE THE FATIGUE. ADVISED TO HAVE LOW FAT AND LOW CALORIE DIET , DAILY EXERCISE. HTN addressed as follow: MONITOR BP GOAL BP LOWER THAN 130/80 LOW SALT EXERCISE DAILY. START CLONIDINE 0.1 MG BID. ADVISED FOR RELAXATION TECHNIQUES AND TO CUT DOWN ON CAFFEINE. MDM 1) COMPLEXITY: 1 UNDIAGNOSED NEW PROBLEM WITH UNCERTAIN PROGNOSIS 2)DATA: TESTS INTERPRETED AND OR ORDERED, TOOK INDEPENDENT HISTORY OR RECORDS REVIEWED 3)RISK: MODERATE RISK DUE TO NATURE OF MEDICAL CONDITIONS/COMORBIDITY OR MEDICATIONS ORDERED OR SURGICAL OR PROCEDURE REFERRAL, . 2 -3 weeks documented in this [facility] Work Phone: [phone] 131-668410-01-2024 History of Present illness Narrative* Monie Galarza MD - 01/31/2024 8:30 AM EDT Subjective Patient ID: Kamila Patel is a 68 y.o. female who presents for Follow-up (1 MO F/U). HPI CHRONIC DIARRHEA W/O ABDOMINAL PAIN. S/P SMALL BOWEL RESECTION.SEVERAL MONTHS AGO. CHRONIC FATIGUE. Review of Systems Constitutional: Positive for fatigue. Negative for chills and fever. HENT: Negative. Negative for congestion, postnasal drip and rhinorrhea. Eyes: Negative. Negative for visual disturbance. Respiratory: Negative for cough, shortness of breath and wheezing. Cardiovascular: Negative. Negative for chest pain, palpitations and leg swelling. Gastrointestinal: Positive for diarrhea. Negative for abdominal distention, abdominal pain, constipation, nausea and vomiting. Endocrine: Negative. Genitourinary: Negative for dysuria and urgency. Musculoskeletal: Negative. Negative for back pain. Skin: Negative. Negative for rash. Allergic/Immunologic: Negative for immunocompromised state. Neurological: Negative. Negative for dizziness, weakness, light-headedness and headaches. Psychiatric/Behavioral: Negative. Negative for agitation. Objective Physical Exam Constitutional: General: She is not in acute distress. HENT: Head: Normocephalic. Nose: Nose normal. Mouth/Throat: Mouth: Mucous membranes are moist. Eyes: Conjunctiva/sclera: Conjunctivae normal. Pupils: Pupils are equal, round, and reactive to light. Cardiovascular: Rate and Rhythm: Normal rate and regular rhythm. Pulses: Normal pulses. Heart sounds: Normal heart sounds. Pulmonary: Effort: No respiratory distress. Breath sounds: No wheezing. Chest: Chest wall: No tenderness. Abdominal: General: Abdomen is flat. Bowel sounds are normal. Palpations: Abdomen is soft. Tenderness: There is no abdominal tenderness. Musculoskeletal: General: No tenderness. Normal range of motion. Cervical back: Normal range of motion. Lymphadenopathy: Cervical: No cervical adenopathy. Skin: General: Skin is warm and dry. Findings: No rash. Neurological: General: No focal deficit present. Mental Status: She is alert. Mental status is at baseline. Psychiatric: Mood and Affect: Mood normal. Behavior: Behavior normal. Assessment/Plan 1. Chronic diarrhea Referral to Gastroenterology 2. Benign essential HTN lisinopril 20 mg tablet Comprehensive Metabolic Panel 3. S/P small bowel resection Referral to Gastroenterology 4. B12 deficiency Vitamin B12 5. Anemia, unspecified type CBC and Auto Differential 6. Hypomagnesemia Magnesium 7. Hypoproteinemia (Multi) 8. Fatigue, unspecified type Magnesium Zinc ADVISED TO HAVE LOW FAT AND LOW CALORIE ,HIGH PROTEIN DIET, DAILY EXERCISE,FALL PRECAUTION. HTN addressed as follow: MONITOR BP GOAL BP LOWER THAN 130/80 LOW SALT. WILL INCREASE THE LISINOPRIL TO 20 MG BID. ADVISED TO CUT DOWN CAFFEINE. EXPLAINED THE DIFFERENTIAL DX OF FATIGUE. OFFERED FOR B12 INJECTION , PT REFUSED. ADVISED TO TAKE THE OTC B12. MDM 1) COMPLEXITY: 1 UNDIAGNOSED NEW PROBLEM WITH UNCERTAIN PROGNOSIS 2)DATA: TESTS INTERPRETED AND OR ORDERED, TOOK INDEPENDENT HISTORY OR RECORDS REVIEWED 3)RISK: MODERATE RISK DUE TO NATURE OF MEDICAL CONDITIONS/COMORBIDITY OR MEDICATIONS ORDERED OR SURGICAL OR PROCEDURE REFERRAL, . 1 mon documented in this [facility] Work Phone: 1([phone]) [phone] History of Present illness Narrative* Monie Galarza MD - 12/29/2023 8:45 AM EDT Subjective Patient ID: Kamila Patel is a 68 y.o. female who presents for Follow-up (3 WEEK F/U LABS + B/P CHECK. PATIENT HAS ADAPTED TO A GLUTEN FREE DIET BUT STILL HAS DIARRHEA - NO CHANGE. ). HPI LAB AND HTN F/U. CHANGE THE DIET TO GLUTEN FREE 3 WEEKS AGO , IS STILL LEARNING ABOUT THE NEW DIET . HAS CHRONIC DIARRHEA ON AND OFF, Review of Systems Constitutional: Negative for chills and fever. HENT: Negative. Negative for congestion, postnasal drip and rhinorrhea. Eyes: Negative. Negative for visual disturbance. Respiratory: Negative for cough, shortness of breath and wheezing. Cardiovascular: Negative. Negative for chest pain, palpitations and leg swelling. Gastrointestinal: Positive for diarrhea. Negative for abdominal distention, abdominal pain, constipation, nausea and vomiting. Endocrine: Negative. Genitourinary: Negative for dysuria and urgency. Musculoskeletal: Negative. Negative for back pain. Skin: Negative. Negative for rash. Allergic/Immunologic: Negative for immunocompromised state. Neurological: Negative. Negative for dizziness, weakness, light-headedness and headaches. Psychiatric/Behavioral: Negative. Negative for agitation. Objective Physical Exam Constitutional: General: She is not in acute distress. HENT: Head: Normocephalic. Nose: Nose normal. Mouth/Throat: Mouth: Mucous membranes are moist. Eyes: Conjunctiva/sclera: Conjunctivae normal. Pupils: Pupils are equal, round, and reactive to light. Cardiovascular: Rate and Rhythm: Normal rate and regular rhythm. Pulses: Normal pulses. Heart sounds: Normal heart sounds. Pulmonary: Effort: No respiratory distress. Breath sounds: No wheezing. Chest: Chest wall: No tenderness. Abdominal: General: Abdomen is flat. Bowel sounds are normal. Palpations: Abdomen is soft. Tenderness: There is no abdominal tenderness. Musculoskeletal: General: No tenderness. Normal range of motion. Cervical back: Normal range of motion. Lymphadenopathy: Cervical: No cervical adenopathy. Skin: General: Skin is warm and dry. Findings: No rash. Neurological: General: No focal deficit present. Mental Status: She is alert. Mental status is at baseline. Psychiatric: Mood and Affect: Mood normal. Behavior: Behavior normal. Assessment/Plan 1. Benign essential HTN lisinopril 10 mg tablet 2. Protein-calorie malnutrition, unspecified severity (Multi) 3. Chronic diarrhea 4. Anemia, unspecified type 5. B12 deficiency TEST RESULTS WERE DISCUSSED. ADVISED TO CUT DOWN CAFFEINE. HTN addressed as follow: MONITOR BP GOAL BP LOWER THAN 130/80 LOW SALT EXERCISE DAILY, FALL PRECAUTION. WILL INCREASE THE LISINOPRIL TO 10 MG 1.5 TAB BID. ADVISED TO CONTINUE THE GLUTEN FREE DIET FOR AT LEAST 2 MONTHS. OFFERED TO GIVE MONTHLY B12 INJECTIONS, PT REFUSED AND WANTS TO TAKE THE OTC. MDM 1) COMPLEXITY: MORE THAN 1 STABLE CHRONIC CONDITION ADDRESSED 2)DATA: TESTS INTERPRETED AND OR ORDERED, TOOK INDEPENDENT HISTORY OR RECORDS REVIEWED 3)RISK: MODERATE RISK DUE TO NATURE OF MEDICAL CONDITIONS/COMORBIDITY OR MEDICATIONS ORDERED OR SURGICAL OR PROCEDURE REFERRAL, . 1 mon documented in this [facility] Work Phone: 1(855) 455-699707-11-2024 History of Present illness Narrative* Monie Galarza MD - 11/10/2023 8:00 AM EDT Subjective Patient ID: Kamila Patel is a 67 y.o. female who presents for Follow-up (1 MONTH F/U LABS. C/O DIARRHEA REMAINS OFF/ON. ). HPI LAB F/U. ABDOMINAL PAIN AND FOOD INTOLERANCE ARE IMPROVING . STILL HAS THE DIARRHEA ON AND OFF, BUTLESS FREQUENT. Review of Systems Constitutional: Negative for chills and fever. HENT: Negative. Negative for congestion, postnasal drip and rhinorrhea. Eyes: Negative. Negative for visual disturbance. Respiratory: Negative for cough, shortness of breath and wheezing. Cardiovascular: Negative. Negative for chest pain, palpitations and leg swelling. Gastrointestinal: Positive for diarrhea. Negative for abdominal distention, abdominal pain, constipation, nausea and vomiting. Endocrine: Negative. Genitourinary: Negative for dysuria and urgency. Musculoskeletal: Negative. Negative for back pain. Skin: Negative. Negative for rash. Allergic/Immunologic: Negative for immunocompromised state. Neurological: Negative. Negative for dizziness, weakness, light-headedness and headaches. Psychiatric/Behavioral: Negative. Negative for agitation. Objective Physical Exam Constitutional: General: She is not in acute distress. HENT: Head: Normocephalic. Nose: Nose normal. Mouth/Throat: Mouth: Mucous membranes are moist. Eyes: Conjunctiva/sclera: Conjunctivae normal. Pupils: Pupils are equal, round, and reactive to light. Cardiovascular: Rate and Rhythm: Normal rate and regular rhythm. Pulses: Normal pulses. Heart sounds: Normal heart sounds. Pulmonary: Effort: No respiratory distress. Breath sounds: No wheezing. Chest: Chest wall: No tenderness. Abdominal: General: Abdomen is flat. Bowel sounds are normal. Palpations: Abdomen is soft. Tenderness: There is no abdominal tenderness. Musculoskeletal: General: No tenderness. Normal range of motion. Cervical back: Normal range of motion. Lymphadenopathy: Cervical: No cervical adenopathy. Skin: General: Skin is warm and dry. Findings: No rash. Neurological: General: No focal deficit present. Mental Status: She is alert. Mental status is at baseline. Psychiatric: Mood and Affect: Mood normal. Behavior: Behavior normal. Assessment/Plan 1. Chronic diarrhea 2. Benign essential HTN lisinopril 10 mg tablet 3. Hypokalemia potassium chloride CR (Klor-Con M20) 20 mEq ER tablet 4. Hypomagnesemia 5. Hypocalcemia 6. Hypoproteinemia (Multi) TEST RESULTS WERE DISCUSSED. HTN addressed as follow: MONITOR BP GOAL BP LOWER THAN 130/80 EXERCISE DAILY. WILL INCREASE THE LISINOPRIL TO 10 MG 1.5 TAB DAILY. ADVISED TO HAVE LOW FAT AND LOW CALORIE , HIGH PROTEIN , HIGH CALCIUM DIET , DAILY EXERCISE. ADVISED TO ADD OTC CA +D 600 MG BID . WILL INCREASE THE POTASSIUM TO 20 MEQ DAILY. MDM 1) COMPLEXITY: 1 UNDIAGNOSED NEW PROBLEM WITH UNCERTAIN PROGNOSIS 2)DATA: TESTS INTERPRETED AND OR ORDERED, TOOK INDEPENDENT HISTORY OR RECORDS REVIEWED 3)RISK: MODERATE RISK DUE TO NATURE OF MEDICAL CONDITIONS/COMORBIDITY OR MEDICATIONS ORDERED OR SURGICAL OR PROCEDURE REFERRAL, . 4 weeks documented in this [facility] Work Phone: 1(156) [phone] History of Present illness Narrative* Monie Galarza MD - 10/11/2023 8:15 AM EDT Subjective Patient ID: Kamila Patel is a 67 y.o. female who presents for Hospital Follow-up (Still having fatigue and frequent diarrhea but is feeling better). HPI F/U AFTER HOSPITAL DISCHARGE FOR SMALL BOWEL OBSTRUCTION ,S/P SMALL BOWEL RESECTION AND PARTIAL COLECTOMY . HAD SECOND HOSPITAL STAY FOR DIARRHEA AND POSTSURGICAL INFECTION WHICH IS RESOLVED. FINISHED THE COURSE OF ANTIBIOTIC , ABDOMINAL PAIN AND DIARRHEA ARE IMPROVED. HAS FATIGUE , BUT OVERALL FEELS BETTER. HAD LABS AND CT ABDOMEN DONE Review of Systems Constitutional: Positive for fatigue. Negative for chills and fever. HENT: Negative. Negative for congestion, postnasal drip and rhinorrhea. Eyes: Negative. Negative for visual disturbance. Respiratory: Negative for cough, shortness of breath and wheezing. Cardiovascular: Negative. Negative for chest pain, palpitations and leg swelling. Gastrointestinal: Negative. Negative for abdominal distention, abdominal pain, constipation, diarrhea, nausea and vomiting. PER HPI Endocrine: Negative. Genitourinary: Negative for dysuria and urgency. Musculoskeletal: Negative. Negative for back pain. Skin: Negative. Negative for rash. Allergic/Immunologic: Negative for immunocompromised state. Neurological: Negative. Negative for dizziness, weakness, light-headedness and headaches. Psychiatric/Behavioral: Negative. Negative for agitation. Objective Physical Exam Constitutional: General: She is not in acute distress. HENT: Head: Normocephalic. Nose: Nose normal. Mouth/Throat: Mouth: Mucous membranes are moist. Eyes: Conjunctiva/sclera: Conjunctivae normal. Pupils: Pupils are equal, round, and reactive to light. Cardiovascular: Rate and Rhythm: Normal rate and regular rhythm. Pulses: Normal pulses. Heart sounds: Normal heart sounds. Pulmonary: Effort: No respiratory distress. Breath sounds: No wheezing. Chest: Chest wall: No tenderness. Abdominal: General: Abdomen is flat. Bowel sounds are normal. Palpations: Abdomen is soft. Tenderness: There is no abdominal tenderness. Comments: HEALED MIDLINE ABDOMINAL SURGICAL SCAR. Musculoskeletal: General: No tenderness. Normal range of motion. Cervical back: Normal range of motion. Lymphadenopathy: Cervical: No cervical adenopathy. Skin: General: Skin is warm and dry. Findings: No rash. Neurological: General: No focal deficit present. Mental Status: She is alert. Mental status is at baseline. Psychiatric: Mood and Affect: Mood normal. Behavior: Behavior normal. Assessment/Plan 1. Fatigue, unspecified type Zinc TSH with reflex to Free T4 if abnormal 2. Gastroesophageal reflux disease, unspecified whether esophagitis present omeprazole (PriLOSEC) [address] capsule 3. Hypomagnesemia magnesium chloride 64 mg magnesium tablet Magnesium 4. Hypokalemia potassium chloride CR (Klor-Con) 10 mEq ER tablet Comprehensive Metabolic Panel 5. Benign essential HTN Comprehensive Metabolic Panel 6. Anemia, unspecified type CBC and Auto Differential Vitamin B12 Methylmalonic Acid Folate Iron and TIBC Ferritin 7. Hypocalcemia Comprehensive Metabolic Panel 8. History of partial colectomy 9. S/P small bowel resection 10. History of small bowel obstruction TEST RESULTS WERE DISCUSSED. ADVISED TO HAVE LOW FAT AND LOW CALORIE , HIGH PROTEIN DIET , DAILY EXERCISE. Do not overeat. Eat small portions at meals and snacks. Avoid tight clothing and tight-fitting belts. Do not lie down or bend over within the first 15-30 minutes after eating. Do not chew gum or suck on hard candy. Swallowing air with chewing gum and sucking on hard candy can cause belching and reflux. Raise the head of your bed 6-8 inches. Do not eat/drink: chocolate, tomatoes, tomato sauces, oranges, pineapple, grapefruit, mints, coffee, alcohol, carbonated beverages, and black pepper. Eat a low fat diet. Fatty and greasy foods cause your stomach to produce more acid. MDM 1) COMPLEXITY: MORE THAN 1 STABLE CHRONIC CONDITION ADDRESSED 2)DATA: TESTS INTERPRETED AND OR ORDERED, TOOK INDEPENDENT HISTORY OR RECORDS REVIEWED 3)RISK: MODERATE RISK DUE TO NATURE OF MEDICAL CONDITIONS/COMORBIDITY OR MEDICATIONS ORDERED OR SURGICAL OR PROCEDURE REFERRAL, . 1 mon documented in this [facility] Work Phone: [phone]) 729-937406-06-2024 Hospital course Narrative* Nalini Head PA-C - 10/06/2023 4:56 PM EDT Discharge Diagnosis Diarrhea Issues Requiring Follow-Up Follow up ACS clinic - post op Test Results Pending At Discharge Pending Labs Order Current Status Blood Culture Preliminary result Blood Culture Preliminary result Hospital Course 67yo F with hx of GERD, HTN, HLD, chronic gastritis, cervical and endometrial ca s/p radiation (2011) who recently underwent ex lap, NANCIE, resection of small bowel mass with adjacent ileum, and partial colectomy with handsewn ileocolic anastomosis (ileum to R colon) after she failed nonoperative management for SBO. Patient had some diarrhea postoperatively, but that resolved until Tuesday, when she developed weakness, profuse watery diarrhea, and loss of appetite with decreased PO intake. Stoolstudies and C diff negative. Patient was started on imodium and diarrhea frequency decreased. She was sent home with imodium and diet recommendations. Pertinent Physical Exam At Time of Discharge Physical Exam Constitutional: Appearance: Normal appearance. Eyes: Extraocular Movements: Extraocular movements intact. Cardiovascular: Rate and Rhythm: Normal rate. Pulmonary: Effort: Pulmonary effort is normal. Abdominal: Comments: Soft, non distended, appropriately tender to palpitation, midline incision well approximated with eusebio. Musculoskeletal: General: Normal range of motion. Skin: General: Skin is warm and dry. Neurological: Mental Status: She is alert and oriented to person, place, and time. Psychiatric: Behavior: Behavior normal. Home Medications Medication List CONTINUE taking these medications acetaminophen 325 mg tablet; Commonly known as: Tylenol; Take 2 tablets (650 mg) by mouth every 4 hours. biotin 10 mg tablet famotidine 20 mg tablet; Commonly known as: Pepcid; Take 1 tablet by mouth twice daily lisinopril 10 mg tablet; Take 1 tablet (10 mg) by mouth once daily. loperamide 2 mg capsule; Commonly known as: Imodium; Take 1 capsule (2 mg) by mouth 3 times a day as needed for diarrhea. omeprazole [address] capsule; Commonly known as: PriLOSEC; Take 1 capsule (40 mg) by mouth once daily. Probiotic Acidophilus 250 million cell capsule; Generic drug: Lactobacillus acidophilus; Take 1 1e11 Vector Genomes by mouth once daily. STOP taking these medications ondansetron 4 mg tablet; Commonly known as: Zofran oxyCODONE 5 mg immediate release tablet; Commonly known as: Roxicodone promethazine 50 mg tablet; Commonly known as: Phenergan sucralfate 1 gram tablet; Commonly known as: Carafate Outpatient Follow-Up Future Appointments Date Time Provider Department Center 10/18/2023 10:00 AM [facility] [id number] [facility] [id number] [facility] 10/24/2023 8:30 AM MD [id number] 06/06/2024 8:00 AM MD [id number] Nalini Head PA-C documented in this [facility] Work Phone: [phone]) 460-519706-06-2024 Hospital Note* Hospital Course - Nalini Head PA-C - 10/06/2023 4:55 PM EDT 67yo F with hx of GERD, HTN, HLD, chronic gastritis, cervical and endometrial ca s/p radiation (2011) who recently underwent ex lap, NANCIE, resection of small bowel mass with adjacent ileum, and partial colectomy with handsewn ileocolic anastomosis (ileum to R colon) after she failed nonoperative management for SBO. Patient had some diarrhea postoperatively, but that resolved until Tuesday, when she developed weakness, profuse watery diarrhea, and loss of appetite with decreased PO intake. Stoolstudies and C diff negative. Patient was started on imodium and diarrhea frequency decreased. She was sent home with imodium and diet recommendations. [facility] Work Phone: 1(275) 862-299206-06-2024 Miscellaneous Notes* Hospital Course - Nalini Head PA-C - 10/06/2023 4:55 PM EDT 67yo F with hx of GERD, HTN, HLD, chronic gastritis, cervical and endometrial ca s/p radiation (2011) who recently underwent ex lap, NANCIE, resection of small bowel mass with adjacent ileum, and partial colectomy with handsewn ileocolic anastomosis (ileum to R colon) after she failed nonoperative management for SBO. Patient had some diarrhea postoperatively, but that resolved until Tuesday, when she developed weakness, profuse watery diarrhea, and loss of appetite with decreased PO intake. Stoolstudies and C diff negative. Patient was started on imodium and diarrhea frequency decreased. She was sent home with imodium and diet recommendations. * Care Plan - Tawnya Edwards RN - 10/06/2023 9:37 AM EDT Problem: Pain Goal: My pain/discomfort is manageable Outcome: Progressing Problem: Safety Goal: Patient will be injury free during hospitalization Outcome: Progressing Goal: I will remain free of falls Outcome: Progressing Problem: Daily Care Goal: Daily care needs are met Outcome: Progressing Problem: Psychosocial Needs Goal: Demonstrates ability to cope with hospitalization/illness Outcome: Progressing Goal: Collaborate with me, my family, and caregiver to identify my specific goals Outcome: Progressing Problem: Discharge Barriers Goal: My discharge needs are met Outcome: Progressing The patient's goals for the shift include The clinical goals for the shift include Tolerate PO fluids and decreased BMs * Care Plan - Lennie Reyes RN - 10/05/2023 10:17 PM EDT The clinical goals for the shift include Tolerate PO fluids and decreased BMs Problem: Pain Goal: My pain/discomfort is manageable Outcome: Progressing Problem: Safety Goal: Patient will be injury free during hospitalization Outcome: Progressing Goal: I will remain free of falls Outcome: Progressing Problem: Daily Care Goal: Daily care needs are met Outcome: Progressing Problem: Psychosocial Needs Goal: Demonstrates ability to cope with hospitalization/illness Outcome: Progressing Goal: Collaborate with me, my family, and caregiver to identify my specific goals Outcome: Progressing Flowsheets (Taken 10/05/20232202) Cultural Requests During Hospitalization: None Spiritual Requests During Hospitalization: None Problem: Discharge Barriers Goal: My discharge needs are met Outcome: Progressing documented in this [facility] Work Phone: [phone]) 237-603906-06-2024 History of Present illness Narrative* Huyen Carlos RN - 10/06/2023 11:42 AM EDT I met with Kamila at the the bedside regarding discharge planning and home going needs. Patient lives home with her spouse [phone] where she is independent with ADL's without assistive devices. Patient is not medically cleared for discharge at this time. I anticipate that she will discharge home no needs to previous disposition. I will continue to follow with a safe discharge plan. * Caesar Couch, KEYUR-FIELD ASSOCIATE - 10/05/2023 6:26 PM EDT [facility] ACUTE CARE SURGERY - PROGRESS NOTE Patient Name: Kamila Patel Admit Date: [id number] : 1955 AGE: 67 y.o. GENDER: female TODAY'S ASSESSMENT AND PLAN OF CARE: 67yo F with hx of GERD, HTN, HLD, chronic gastritis, cervical and endometrial ca s/p radiation (2011) who recently underwent ex lap, NANCIE, resection of small bowel mass with adjacent ileum, and partial colectomy with handsewn ileocolic anastomosis (ileum to R colon) after she failed nonoperative management for SBO. Patient had some diarrhea postoperatively, but that resolved until Tuesday, when she developed weakness, profuse watery diarrhea, and loss of appetite with decreased PO intake. She is non toxic appearing and has normal vitals and a benign abdominal exam. Labs notable for WBC 21.2 (repeat WBC 13.6 here), bicarb 13, BULL with Cr 2.0. Will admit for hydration and hold further antibiotics unless infectious workup reveals a source of infection. Mild residual leukocytosis could be inflammatory in nature and/or related to hemoconcentration. Stool studies and C diff negative. White count now normalized. Neuro: - PRN Tylenol Resp: no active issues Card: no active issues - Vital signs qshift GI: - Advance to regular diet as tolerated - Resume Imodium 2mg QID (patient discharged with script from previous discharge) - Continue PPI/Pepcid : - Strict I&Os - Hypokalemia with K 2.7- given 40meq PO K, 40meq IV - Repeat Potassium level at 1800 tonight - HL IVFs with good PO intake - Bicarb 10 on admission, s/p Bicarb infusion now at 26 - Repeat labs in AM Heme: no active issues ID: no indication for antbx UA, stool studies and C diff negative DVT Proph: - SCDs, SQH Dispo: possible discharge tomorrow if diarrhea improves and tolerating diet Patient discussed with Attending Dr. Trent Couch APRN-[facility] Acute Care Surgery Pager [phone] CHIEF COMPLAINT / EVENTS LAST 24HRS / HPI: No issues overnight. Tolerating clears. Diarrhea continues however improving. Would like to try solid food. Denies abdominal pain. MEDICAL HISTORY / ROS: Admission history and ROS reviewed. Pertinent changes as follows: No new changes PHYSICAL EXAM: Heart Rate: [76-94] Temperature: [36.2 C (97.2 F)-36.8 C (98.2 F)] Respirations: [16-18] BP: (114-138)/(68-81) Pulse Ox: [97 %-99 %] Physical Exam Constitutional: Appearance: Normal appearance. Eyes: Extraocular Movements: Extraocular movements intact. Cardiovascular: Rate and Rhythm: Normal rate. Pulmonary: Effort: Pulmonary effort is normal. Abdominal: Comments: Soft, non distended, appropriately tender to palpitation, midline incision well approximated with eusebio. Musculoskeletal: General: Normal range of motion. Skin: General: Skin is warm and dry. Neurological: Mental Status: She is alert and oriented to person, place, and time. Psychiatric: Behavior: Behavior normal. LABS: Results for orders placed or performed during the hospital encounter of 10/04/23 (from the past 24 hour(s)) CBC Result Value Ref Range WBC 8.6 4.4 - 11.3 x10*3/uL nRBC 0.0 0.0 - 0.0 /100 WBCs RBC 2.56 (L) 4.00 - 5.20 x10*6/uL Hemoglobin 8.0 (L) 12.0 - 16.0 g/dL Hematocrit 21.9 (L) 36.0 - 46.0 % MCV 86 80 - 100 fL MCH 31.3 26.0 - 34.0 pg MCHC 36.5 (H) 32.0 - 36.0 g/dL RDW 12.6 11.5 - 14.5 % Platelets 425 150 - 450 x10*3/uL Basic metabolic panel Result Value Ref Range Glucose 129 (H) 74 - 99 mg/dL Sodium 141 136 - 145 mmol/L Potassium 2.7 (LL) 3.5 - 5.3 mmol/L Chloride 105 98 - 107 mmol/L Bicarbonate 26 21 - 32 mmol/L Anion Gap 13 mmol/L Urea Nitrogen 12 6 - 23 mg/dL Creatinine 0.47 (L) 0.50 - 1.05 mg/dL eGFR >90 >60 mL/min/1.73m*2 Calcium 8.2 (L) 8.6 - 10.6 mg/dL MEDICATIONS: Current Facility-Administered Medications Medication Dose Route Frequency Provider Last Rate Last Admin acetaminophen (Tylenol) tablet 650 mg 650 mg oral q4h PRN Iman North MD biotin tablet 10 mg 10 mg oral Daily Iman North MD 10 mg at 10/05/23 1632 calcium carbonate (Tums) chewable tablet 500 mg 500 mg oral Daily Iman North MD 500 mg at 10/05/23 0900 famotidine (Pepcid) tablet 20 mg 20 mg oral BID Iman North MD 20 mg at 10/05/23 1632 heparin (porcine) injection 5,000 Units 5,000 Units subcutaneous q8h Iman North MD 5,000 Units at 10/05/23 1445 lactated Ringer's bolus 500 mL 500 mL intravenous Once Iman North MD loperamide (Imodium) capsule 2 mg 2 mg oral Once SIOBHAN Humphreys [START ON 10/06/2023] loperamide (Imodium) capsule 2 mg 2 mg oral With meals & nightly SIOBHAN Humphreys pantoprazole (ProtoNix) EC tablet 40 mg 40 mg oral Daily before breakfast Iman North MD40 mg at 10/05/23 0603 sodium bicarbonate 150 mEq in dextrose 5% 1,000 mL infusion 125 mL/hr intravenous Continuous Veto Jeffries MD 125 mL/hr at 06/05/24 0527 125 mL/hr at 10/05/23526 Current Outpatient Medications Medication Sig Dispense Refill acetaminophen (Tylenol) 325 mg tablet Take 2 tablets (650 mg) by mouth every 4 hours. biotin 10 mg tablet Take 1 tablet (10 mg) by mouth once daily. famotidine (Pepcid) 20 mg tablet Take 1 tablet by mouth twice daily 60 tablet 11 Lactobacillus acidophilus (Probiotic Acidophilus) 250 million cell capsule Take 1 1e11 Vector Genomes by mouth once daily. 30 capsule 11 lisinopril 10 mg tablet Take 1 tablet (10 mg) by mouth once daily. 90 tablet 3 loperamide (Imodium) 2 mg capsule Take 1 capsule (2 mg) by mouth 3 times a day as needed for diarrhea. 90 capsule 0 omeprazole (PriLOSEC) [address] capsule Take 1 capsule (40 mg) by mouth once daily. 90 capsule 3 ondansetron (Zofran) 4 mg tablet Take 1 tablet (4 mg) by mouth every 8 hours if needed for nausea or vomiting. promethazine (Phenergan) 50 mg tablet Take 1 tablet (50 mg) by mouth 4 times a day as needed for nausea or vomiting. 30 tablet 11 sucralfate (Carafate) 1 gram tablet Take 1 tablet (1 g) by mouth 4 times a day as needed (bloating). 120 tablet 0 IMAGING SUMMARY: (summary of new imaging findings, not a copy of dictation) * Mike Oseguera - 10/05/2023 11:11 AM EDT Pharmacy Medication History Review Kamila Patel is a 67 y.o. female admitted for Diarrhea. Pharmacy reviewed the patient's [id number] medications and allergies for accuracy. The list below reflects the updated LEAD ATHLETE list. Comments regarding how patient may be taking medications differently can be found in the Admit Orders Activity Prior to Admission Medications Prescriptions Last Dose Informant Lactobacillus acidophilus (Probiotic Acidophilus) 250 million cell capsule Past Month Self, Spouse/Significant Other Sig: Take 1 1e11 Vector Genomes by mouth once daily. acetaminophen (Tylenol) 325 mg tablet Past Week at Tuesday Self, Spouse/Significant Other Sig: Take 2 tablets (650 mg) by mouth every 4 hours. biotin 10 mg tablet 10/04/2023 Self, Spouse/Significant Other Sig: Take 1 tablet (10 mg) by mouth once daily. famotidine (Pepcid) 20 mg tablet Past Month Self, Spouse/Significant Other Sig: Take 1 tablet by mouth twice daily lisinopril 10 mg tablet Past Week at Tuesday Self, Spouse/Significant Other Sig: Take 1 tablet (10 mg) by mouth once daily. loperamide (Imodium) 2 mg capsule Past Week at Tuesday Self, Spouse/Significant Other Sig: Take 1 capsule (2 mg) by mouth 3 times a day as needed for diarrhea. omeprazole (PriLOSEC) [address] capsule Past Month Self, Spouse/Significant Other Sig: Take 1 capsule (40 mg) by mouth once daily. ondansetron (Zofran) 4 mg tablet Past Month Self, Spouse/Significant Other Sig: Take 1 tablet (4 mg) by mouth every 8 hours if needed for nausea or vomiting. oxyCODONE (Roxicodone) 5 mg immediate release tablet Not Taking Sig: Take 1 tablet (5 mg) by mouth every 4 hours if needed for moderate pain (4 - 6) or severe pain(7 - 10) for up to 3 days. Patient not taking: Reported on 10/05/2023 promethazine (Phenergan) 50 mg tablet Past Month Self, Spouse/Significant Other Sig: Take 1 tablet (50 mg) by mouth 4 times a day as needed for nausea or vomiting. sucralfate (Carafate) 1 gram tablet Past Month Self, Spouse/Significant Other Sig: Take 1 tablet (1 g) by mouth 4 times a day as needed (bloating). Facility-Administered Medications: None The list below reflects the updated allergy list. Please review each documented allergy for additional clarification and justification. Allergies Reviewed by Mary Meyer RN on 10/04/2023 No Known Allergies Patient declines M2B at discharge. Pharmacy has been updated to [facility] in [place] [address] Sources used to complete the med history include out patient fill history, OARRS, and patient interview (Patient and her spouse were good medical historians, they had her home med list on his phone.). Below are additional concerns with the patient's LEAD ATHLETE list. They were unsure of the medication strengths/dosage. Mike Oseguera CPhT [facility] Please reach out via Secure Chat for questions, or if no response call [phone] or [email or web address] Associated attestation - Flori Fraser PharmD - 10/05/2023 11:37 AM EDT Patient reported ondansetron and sucralfate are currently on hold documented in this [facility] Work Phone: [phone]) 356-905606-06-2024 Plan of care note* Care Plan - Tawnya Edwards RN - 10/06/2023 9:37 AM EDT Problem: Pain Goal: My pain/discomfort is manageable Outcome: Progressing Problem: Safety Goal: Patient will be injury free during hospitalization Outcome: Progressing Goal: I will remain free of falls Outcome: Progressing Problem: Daily Care Goal: Daily care needs are met Outcome: Progressing Problem: Psychosocial Needs Goal: Demonstrates ability to cope with hospitalization/illness Outcome: Progressing Goal: Collaborate with me, my family, and caregiver to identify my specific goals Outcome: Progressing Problem: Discharge Barriers Goal: My discharge needs are met Outcome: Progressing The patient's goals for the shift include The clinical goals for the shift include Tolerate PO fluids and decreased BMs [facility]06-05-2024 Plan of care note* Care Plan - Lennie Reyes RN - 10/05/2023 10:17 PM EDT The clinical goals for the shift include Tolerate PO fluids and decreased BMs Problem: Pain Goal: My pain/discomfort is manageable Outcome: Progressing Problem: Safety Goal: Patient will be injury free during hospitalization Outcome: Progressing Goal: I will remain free of falls Outcome: Progressing Problem: Daily Care Goal: Daily care needs are met Outcome: Progressing Problem: Psychosocial Needs Goal: Demonstrates ability to cope with hospitalization/illness Outcome: Progressing Goal: Collaborate with me, my family, and caregiver to identify my specific goals Outcome: Progressing Flowsheets (Taken 10/05/20232202) Cultural Requests During Hospitalization: None Spiritual Requests During Hospitalization: None Problem: Discharge Barriers Goal: My discharge needs are met Outcome: Progressing [facility] Work Phone: 1([phone]) 567-350406-04-2024 C. difficile toxin A+B tcdA+tcdB genes KARIN+probe Ql (Stl)C. difficile, PCRNot DetectedNot Detected SIMPLEXA COVID-19 DIRECT ASSAY[facility] Note* Beverley Kirby, OPER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-FIELD ASSOCIATE - 10/04/2023 5:42 AM EDT HPI Chief Complaint Patient presents with Abdominal Pain HPI 67 year old female with hx of GERD, HTN, gastritis, HLD, prior SBO (2021), cervical and endometrial cancer s/p external and transvaginal radiation (2011) presents to the Emergency Department today as a transfer from [facility] ED where she had reported complaints of generalized weakness and diarrhea x 4 days. She was had a recent small bowel resection with partial colectomy and exploratory laparotomy on 09/[address] Salas at [facility]. Patient reports that she felt better for the first two days post discharge; however then began to experience several episodes of loose watery stools and generalized weakness. Denies any fever/chills, cold symptoms, CP, SOB, n/v, bloody stools, abdominal pain , ur inary symptoms, paresthesias. Denies any recent falls, has been able to ambulate independently. Hasbeen able to keep down fluids and Ensure at home. Denies any increased pain , bleeding or drainage from her abdominal incision site. She was transferred from outside facility for general surgery consult Review of Systems Constitutional: Negative for chills and fever. HENT: Negative for congestion, rhinorrhea and sore throat. Respiratory: Negative for cough and shortness of breath. Cardiovascular: Negative for chest pain. Gastrointestinal: Positive for diarrhea. Negative for abdominal pain, blood in stool, nausea and vomiting. Genitourinary: Negative for dysuria. Musculoskeletal: Negative for back pain. Skin: Negative for wound. Neurological: Positive for weakness. Negative for dizziness and headaches. Psychiatric/Behavioral: Negative for confusion. [place] Coma Scale Score: 15 Patient History Past Medical History: Diagnosis Date Encounter for full-term uncomplicated delivery ([facility]) NVD (normal vaginal delivery) Encounter for gynecological examination (general) (routine) without abnormal findings 09/16/2021 Pap test, as part of routine gynecological examination GERD (gastroesophageal reflux disease) Hypertension Personal history of malignant neoplasm of other parts of uterus History of uterine cancer Personal history of other medical treatment H/O mammogram Past Surgical History: Procedure Laterality Date CARPAL TUNNEL RELEASE COLONOSCOPY 02/25/2012 DR. CASILLAS-REPEAT IN 10 YEARS; NORMAL ESOPHAGOGASTRODUODENOSCOPY 2017 HYSTERECTOMY 08/2011 TONSILLECTOMY TUBAL LIGATION 08/03/1989 Family History Problem Relation Name Age of Onset Heart attack Mother Coronary artery disease Mother Hypertension Father Leukemia Father Diabetes Sister Heart attack Brother Social History Tobacco Use Smoking status: Never Smokeless tobacco: Never Vaping Use Vaping status: Never Used Substance Use Topics Alcohol use: Never Drug use: Never Physical Exam ED Triage Vitals [10/04/23 0649] Temp Heart Rate Respirations BP -- 99 18 108/76 Pulse Ox Temp src Heart Rate Source Patient Position 100 % -- Monitor Lying BP Location FiO2 (%) Left arm 21 % Physical Exam Vitals reviewed. Constitutional: Appearance: She is not ill-appearing. HENT: Head: Normocephalic and atraumatic. Mouth/Throat: Mouth: Mucous membranes are moist. Cardiovascular: Rate and Rhythm: Normal rate and regular rhythm. Pulmonary: Effort: Pulmonary effort is normal. No respiratory distress. Breath sounds: Normal breath sounds. No wheezing, rhonchi or rales. Abdominal: General: Bowel sounds are normal. There is no distension or abdominal bruit. Palpations: Abdomen is soft. Tenderness: There is no abdominal tenderness. There is no right CVA tenderness, left CVA tenderness, guarding or rebound. Comments: Midline abdominal incision intact; there is no surrounding erythema, drainage or tenderness Skin: General: Skin is warm and dry. Neurological: Mental Status: She is alert and oriented to person, place, and time. Motor: No weakness. ED Course & MDM ED Course as of 10/04/23 0931 TueOct 04, 2023 0845 ED Attending Documentation: This patient was seen by the advanced practice provider. I have personally performed a substantive portion of the encounter. I have seen and examined the patient; agree with the workup, evaluation, MDM, management and diagnosis. The care plan has been discussed. I personally saw the patient and made/approved the management plan and take responsibility for the patient management. History: 67-year-old female who recently had abdominal surgery for small bowel obstruction presentsemerged part with diarrhea and dehydration. She has been having this since Tuesday. Exam: Awake alert with dry mucous membranes, abdomen is soft with the appropriate incision healing stage. MDM: Patient presents emergency department with metabolic derangements consistent with GI losses. She is a bicarb 10 but no anion gap, concerning for metabolic acidosis secondary to loss of bicarb. She was given some fluids and her creatinine is actually improved from 2 to .9 since the outside hospital and her CT does not show any acute abnormalities. ACS to admit, patient was started on a bicarbdrip here in the emergency department. Veto Jeffries MD EM Attending Physician [RG] ED Course User Index [RG] Veto Jeffries MD Diagnoses as of 10/04/23 0931 Diarrhea Dehydration Medical Decision Making 67 year old female with hx of recent small bowel resection, partial colectomy and exploratory laparotomy on 09/22 presents to the ED as a transfer from [facility] for an ACS consult. Patient reportsgeneralized weakness and non-bloody diarrhea at home x 3 days. She denies any associated fevers, CP, SOB, n/v, abd pain or urinary symptoms. At outside facility, was found to have elevated WBC of 21.Hypokalemia at 2.8. BUN 24, Cr 2.0. Initial lactate 2.5. She was given IV fluids along with potassium and magnesium replacement and 1 dose of Levaquin. Stool pathogens pending. Repeat lactate improved to 1.1. CT abd/pelvis reviewed from outside facility, findings consistent with post op changes along with sigmoid bowel thickening consistent with possible colitis. Patient is well appearing, nontoxic with stable vital signs. She denies any pain or discomfort. Abdomen is soft, nontender. Midline abdominal incision appears intact without surrounding erythema or drainage. Reports her symptoms of generalized weakness have improved overall and the diarrhea has slowed down. Will repeat labs , NS infusing at 125cc/hr. ACS consulted. Please see consult note for further details. Repeat labs with improved WBC of 13.6. CMP did reveal improved kidney function, BUN 23, Cr 0.93. K improved to 3.5 Bicarb low at 10. Anion gap WNL. Bicarb infusion was initiated. Will obtain VBG. Blood cultures pending. Plan to admit patient to ACS service for dehydration, diarrhea. Suspect possible Cdiff- cultures pending. Plan of care was discussed with the patient. She did verbalize understanding and remains in stable condition while awaiting hospital admission. Procedure Procedures SIOBHAN Woodward 10/04/23 0934 Associated attestation - Veto Jeffries MD - 10/04/2023 3:17 PM EDT This patient was seen by the advanced practice provider. I have personally performed a substantive portion of the encounter. I have seen and examined the patient; agree with the workup, evaluation, MDM, management and diagnosis. The care plan has been discussed. Please see ED course for my attestation. * Mary Meyer RN - 10/04/2023 5:42 AM EDT PT as a transfer from [facility] with c/o abdominal pain and diarrhea. PT recently had abdominal surgery here. [facility] Work Phone: 1([phone]) 453-833806-04-2024 Emergency department Triage note* Mary Meyer RN - 10/04/2023 5:42 AM EDT PT as a transfer from [facility] with c/o abdominal pain and diarrhea. PT recently had abdominal surgery here. [facility]06-04-2024 Physician Emergency department Note * SIOBHAN Woodward - 10/04/2023 5:42 AM EDT HPI Chief Complaint Patient presents with Abdominal Pain HPI 67 year old female with hx of GERD, HTN, gastritis, HLD, prior SBO (2021), cervical and endometrial cancer s/p external and transvaginal radiation (2011) presents to the Emergency Department today as a transfer from [facility] ED where she had reported complaints of generalized weakness and diarrhea x 4 days. She was had a recent small bowel resection with partial colectomy and exploratory laparotomy on 09/[address] Salas at [facility]. Patient reports that she felt better for the first two days post discharge; however then began to experience several episodes of loose watery stools and generalized weakness. Denies any fever/chills, cold symptoms, CP, SOB, n/v, bloody stools, abdominal pain , ur inary symptoms, paresthesias. Denies any recent falls, has been able to ambulate independently. Hasbeen able to keep down fluids and Ensure at home. Denies any increased pain , bleeding or drainage from her abdominal incision site. She was transferred from outside facility for general surgery consult Review of Systems Constitutional: Negative for chills and fever. HENT: Negative for congestion, rhinorrhea and sore throat. Respiratory: Negative for cough and shortness of breath. Cardiovascular: Negative for chest pain. Gastrointestinal: Positive for diarrhea. Negative for abdominal pain, blood in stool, nausea and vomiting. Genitourinary: Negative for dysuria. Musculoskeletal: Negative for back pain. Skin: Negative for wound. Neurological: Positive for weakness. Negative for dizziness and headaches. Psychiatric/Behavioral: Negative for confusion. Lu Coma Scale Score: 15 Patient History Past Medical History: Diagnosis Date Encounter for full-term uncomplicated delivery ([facility]) NVD (normal vaginal delivery) Encounter for gynecological examination (general) (routine) without abnormal findings 09/16/2021 Pap test, as part of routine gynecological examination GERD (gastroesophageal reflux disease) Hypertension Personal history of malignant neoplasm of other parts of uterus History of uterine cancer Personal history of other medical treatment H/O mammogram Past Surgical History: Procedure Laterality Date CARPAL TUNNEL RELEASE COLONOSCOPY 02/25/2012 DR. CASILLAS-REPEAT IN 10 YEARS; NORMAL ESOPHAGOGASTRODUODENOSCOPY 2017 HYSTERECTOMY 08/2011 TONSILLECTOMY TUBAL LIGATION 08/03/1989 Family History Problem Relation Name Age of Onset Heart attack Mother Coronary artery disease Mother Hypertension Father Leukemia Father Diabetes Sister Heart attack Brother Social History Tobacco Use Smoking status: Never Smokeless tobacco: Never Vaping Use Vaping status: Never Used Substance Use Topics Alcohol use: Never Drug use: Never Physical Exam ED Triage Vitals [10/04/23 0649] Temp Heart Rate Respirations BP -- 99 18 108/76 Pulse Ox Temp src Heart Rate Source Patient Position 100 % -- Monitor Lying BP Location FiO2 (%) Left arm 21 % Physical Exam Vitals reviewed. Constitutional: Appearance: She is not ill-appearing. HENT: Head: Normocephalic and atraumatic. Mouth/Throat: Mouth: Mucous membranes are moist. Cardiovascular: Rate and Rhythm: Normal rate and regular rhythm. Pulmonary: Effort: Pulmonary effort is normal. No respiratory distress. Breath sounds: Normal breath sounds. No wheezing, rhonchi or rales. Abdominal: General: Bowel sounds are normal. There is no distension or abdominal bruit. Palpations: Abdomen is soft. Tenderness: There is no abdominal tenderness. There is no right CVA tenderness, left CVA tenderness, guarding or rebound. Comments: Midline abdominal incision intact; there is no surrounding erythema, drainage or tenderness Skin: General: Skin is warm and dry. Neurological: Mental Status: She is alert and oriented to person, place, and time. Motor: No weakness. ED Course & MDM ED Course as of 10/04/23 0931 TueOct 04, 2023 0845 ED Attending Documentation: This patient was seen by the advanced practice provider. I have personally performed a substantive portion of the encounter. I have seen and examined the patient; agree with the workup, evaluation, MDM, management and diagnosis. The care plan has been discussed. I personally saw the patient and made/approved the management plan and take responsibility for the patient management. History: 67-year-old female who recently had abdominal surgery for small bowel obstruction presentsemerged part with diarrhea and dehydration. She has been having this since Tuesday. Exam: Awake alert with dry mucous membranes, abdomen is soft with the appropriate incision healing stage. MDM: Patient presents emergency department with metabolic derangements consistent with GI losses. She is a bicarb 10 but no anion gap, concerning for metabolic acidosis secondary to loss of bicarb. She was given some fluids and her creatinine is actually improved from 2 to .9 since the outside hospital and her CT does not show any acute abnormalities. ACS to admit, patient was started on a bicarbdrip here in the emergency department. Veto Jeffries MD EM Attending Physician [RG] ED Course User Index [RG] Veto Jeffries MD Diagnoses as of 10/04/23 0931 Diarrhea Dehydration Medical Decision Making 67 year old female with hx of recent small bowel resection, partial colectomy and exploratory laparotomy on 09/22 presents to the ED as a transfer from [facility] for an ACS consult. Patient reportsgeneralized weakness and non-bloody diarrhea at home x 3 days. She denies any associated fevers, CP, SOB, n/v, abd pain or urinary symptoms. At outside facility, was found to have elevated WBC of 21.Hypokalemia at 2.8. BUN 24, Cr 2.0. Initial lactate 2.5. She was given IV fluids along with potassium and magnesium replacement and 1 dose of Levaquin. Stool pathogens pending. Repeat lactate improved to 1.1. CT abd/pelvis reviewed from outside facility, findings consistent with post op changes along with sigmoid bowel thickening consistent with possible colitis. Patient is well appearing, nontoxic with stable vital signs. She denies any pain or discomfort. Abdomen is soft, nontender. Midline abdominal incision appears intact without surrounding erythema or drainage. Reports her symptoms of generalized weakness have improved overall and the diarrhea has slowed down. Will repeat labs , NS infusing at 125cc/hr. ACS consulted. Please see consult note for further details. Repeat labs with improved WBC of 13.6. CMP did reveal improved kidney function, BUN 23, Cr 0.93. K improved to 3.5 Bicarb low at 10. Anion gap WNL. Bicarb infusion was initiated. Will obtain VBG. Blood cultures pending. Plan to admit patient to ACS service for dehydration, diarrhea. Suspect possible Cdiff- cultures pending. Plan of care was discussed with the patient. She did verbalize understanding and remains in stable condition while awaiting hospital admission. Procedure Procedures Beverley Kirby APRN-FIELD ASSOCIATE 10/04/23 0934 Associated attestation - Veot Jeffries MD - 10/04/2023 3:17 PM EDT This patient was seen by the advanced practice provider. I have personally performed a substantive portion of the encounter. I have seen and examined the patient; agree with the workup, evaluation, MDM, management and diagnosis. The care plan has been discussed. Please see ED course for my attestation. [facility] Work Phone: 1(572) 224-637506-03-2024 Emergency department Note* Diandra Nielson, DO - 10/03/2023 7:37 PM EDT HPI Chief Complaint Patient presents with Weakness, Gen Pt comes in for generalized weakness. Pt states she was recently discharged from [facility] after having parts of her intestines and colon removed to due necrosis and blockage. Pt states the past couple days she has been feeling nauseous, vomiting, diarrhea, weakness, light headedness and fatigue.Pt states she is unable to keep anything down. Denies fevers. Pt states her incisions are healing well. 67-year-old female presents with generalized weakness. Patient was recently hospitalized for a total of 13 days with at least 5 days at [facility]. Patient had some type of abdominal surgery there. Patient was discharged last and states she felt well for 2 days then on Tuesday developed some generalized weakness and unable to eat anything without diarrhea. Patient states she has had diarrhea for almost 2 days. Patient denies any fever or chills. Patient states she is extremely weak and has been consuming Ensure for the last 24 hours plus. Patient upon physical examination here looks emaciated. Patient will have an IV established and be hydrated. Patient had liquid yellow stool here. Thiswill be sent for further evaluation to the lab. Patient did receive a dose of Zosyn while here. I talked to the patient at length about plan of care and she is comfortable with it. Patient states shefeels much better after initial treatment here in the emergency department. History provided by: Patient and spouse No data recorded Patient History Past Medical History: Diagnosis Date Encounter for full-term uncomplicated delivery ([facility]) NVD (normal vaginal delivery) Encounter for gynecological examination (general) (routine) without abnormal findings 09/16/2021 Pap test, as part of routine gynecological examination GERD (gastroesophageal reflux disease) Hypertension Personal history of malignant neoplasm of other parts of uterus History of uterine cancer Personal history of other medical treatment H/O mammogram Past Surgical History: Procedure Laterality Date CARPAL TUNNEL RELEASE COLONOSCOPY 02/25/2012 DR. CASILLAS-REPEAT IN 10 YEARS; NORMAL ESOPHAGOGASTRODUODENOSCOPY 2017 HYSTERECTOMY 08/2011 TONSILLECTOMY TUBAL LIGATION 08/03/1989 Family History Problem Relation Name Age of Onset Heart attack Mother Coronary artery disease Mother Hypertension Father Leukemia Father Diabetes Sister Heart attack Brother Social History Tobacco Use Smoking status: Never Smokeless tobacco: Never Vaping Use Vaping status: Never Used Substance Use Topics Alcohol use: Never Drug use: Never Physical Exam ED Triage Vitals [10/03/23 1943] Temperature Heart Rate Respirations BP 36.5 C (97.7 F) (!) 110 20 91/73 Pulse Ox Temp Source Heart Rate Source Patient Position 98 % Oral Monitor Sitting BP Location FiO2 (%) Left arm -- Physical Exam Vitals and nursing note reviewed. Constitutional: General: She is not in acute distress. Appearance: She is well-developed. She is ill-appearing. HENT: Head: Normocephalic and atraumatic. Mouth/Throat: Mouth: Mucous membranes are dry. Eyes: Conjunctiva/sclera: Conjunctivae normal. Cardiovascular: Rate and Rhythm: Regular rhythm. Tachycardia present. Heart sounds: No murmur heard. Pulmonary: Effort: Pulmonary effort is normal. No respiratory distress. Breath sounds: Normal breath sounds. Abdominal: Palpations: Abdomen is soft. Tenderness: There is no abdominal tenderness. Comments: Healing midline incision. Musculoskeletal: General: No swelling. Cervical back: Neck supple. Skin: General: Skin is warm and dry. Capillary Refill: Capillary refill takes less than 2 seconds. Coloration: Skin is pale. Comments: Poor turgor Neurological: Mental Status: She is alert. Psychiatric: Mood and Affect: Mood normal. ED Course & MDM ED Course as of 10/04/23 005TueOct 03, 20232001 Twelve-lead EKG interpreted by myself at 2000 1 sinus tachycardia at 106 2 borderline low voltage [address]-T wave changes [MS] ED Course User Index [MS] Diandra Nielson DO Diagnoses as of 10/04/23 0050 Generalized weakness Gastroenteritis BULL (acute kidney injury) ([facility]) Medical Decision Making Transfer to [facility] Procedure Procedures Diandra Nielson DO 10/04/23 0051 [facility] Work Phone: 1(407) 835-925206-03-2024 Physician Emergency department Note* Diandra Aguilar NielsonDO - 10/03/2023 7:37 PM EDT HPI Chief Complaint Patient presents with Weakness, Gen Pt comes in for generalized weakness. Pt states she was recently discharged from [facility] after having parts of her intestines and colon removed to due necrosis and blockage. Pt states the past couple days she has been feeling nauseous, vomiting, diarrhea, weakness, light headedness and fatigue.Pt states she is unable to keep anything down. Denies fevers. Pt states her incisions are healing well. 67-year-old female presents with generalized weakness. Patient was recently hospitalized for a total of 13 days with at least 5 days at [facility]. Patient had some type of abdominal surgery there. Patient was discharged last and states she felt well for 2 days then on Tuesday developed some generalized weakness and unable to eat anything without diarrhea. Patient states she has had diarrhea for almost 2 days. Patient denies any fever or chills. Patient states she is extremely weak and has been consuming Ensure for the last 24 hours plus. Patient upon physical examination here looks emaciated. Patient will have an IV established and be hydrated. Patient had liquid yellow stool here. Thiswill be sent for further evaluation to the lab. Patient did receive a dose of Zosyn while here. I talked to the patient at length about plan of care and she is comfortable with it. Patient states shefeels much better after initial treatment here in the emergency department. History provided by: Patient and spouse No data recorded Patient History Past Medical History: Diagnosis Date Encounter for full-term uncomplicated delivery ([facility]) NVD (normal vaginal delivery) Encounter for gynecological examination (general) (routine) without abnormal findings 09/16/2021 Pap test, as part of routine gynecological examination GERD (gastroesophageal reflux disease) Hypertension Personal history of malignant neoplasm of other parts of uterus History of uterine cancer Personal history of other medical treatment H/O mammogram Past Surgical History: Procedure Laterality Date CARPAL TUNNEL RELEASE COLONOSCOPY 02/25/2012 DR. CASILLAS-REPEAT IN 10 YEARS; NORMAL ESOPHAGOGASTRODUODENOSCOPY 2017 HYSTERECTOMY 08/2011 TONSILLECTOMY TUBAL LIGATION 08/03/1989 Family History Problem Relation Name Age of Onset Heart attack Mother Coronary artery disease Mother Hypertension Father Leukemia Father Diabetes Sister Heart attack Brother Social History Tobacco Use Smoking status: Never Smokeless tobacco: Never Vaping Use Vaping status: Never Used Substance Use Topics Alcohol use: Never Drug use: Never Physical Exam ED Triage Vitals [10/03/23 1943] Temperature Heart Rate Respirations BP 36.5 C (97.7 F) (!) 110 20 91/73 Pulse Ox Temp Source Heart Rate Source Patient Position 98 % Oral Monitor Sitting BP Location FiO2 (%) Left arm -- Physical Exam Vitals and nursing note reviewed. Constitutional: General: She is not in acute distress. Appearance: She is well-developed. She is ill-appearing. HENT: Head: Normocephalic and atraumatic. Mouth/Throat: Mouth: Mucous membranes are dry. Eyes: Conjunctiva/sclera: Conjunctivae normal. Cardiovascular: Rate and Rhythm: Regular rhythm. Tachycardia present. Heart sounds: No murmur heard. Pulmonary: Effort: Pulmonary effort is normal. No respiratory distress. Breath sounds: Normal breath sounds. Abdominal: Palpations: Abdomen is soft. Tenderness: There is no abdominal tenderness. Comments: Healing midline incision. Musculoskeletal: General: No swelling. Cervical back: Neck supple. Skin: General: Skin is warm and dry. Capillary Refill: Capillary refill takes less than 2 seconds. Coloration: Skin is pale. Comments: Poor turgor Neurological: Mental Status: She is alert. Psychiatric: Mood and Affect: Mood normal. ED Course & MDM ED Course as of 10/04/23 005 Mon Oct 03, 20232001 Twelve-lead EKG interpreted by myself at 2000 1 sinus tachycardia at 106 2 borderline low voltage [address]-T wave changes [MS] ED Course User Index [MS] Diandra Nielson DO Diagnoses as of 10/04/23 005 Generalized weakness Gastroenteritis BULL (acute kidney injury) ([facility]) Medical Decision Making Transfer to [facility] Procedure Procedures Diandra Nielson DO 10/04/2350 [facility] Work Phone: [phone]) [phone] Nurse Note* Carey Crane RN - 09/20/2023 11:00 PM EDT Report Called to MAUREEN Foster at [facility].Questions answered. Pt being transferred to [place] [address] [facility]05-21-2024 Nurse Note* Carey Crane RN - 09/20/2023 11:00 PM EDT Report Called to MAUREEN Foster at [facility].Questions answered. Pt being transferred to [place] [address] documented in this encounterM[facility] Work Phone: 1(582) 576-588505-21-2024 History of Present illness Narrative* Shilpi Mendes RN - 09/20/2023 11:40 AM EDT 09/20/23 1140 Discharge Planning Living Arrangements Spouse/significant other Support Systems Spouse/significant other Assistance Needed none Type of Residence Private residence Number of Stairs to Enter Residence 1 Number of Stairs Within Residence 13 Do you have animals or pets at home? Yes Type of Animals or Pets 1 cat Who is requesting discharge planning? Provider Home or Post Acute Services None Type of Home Care Services (none) Patient expects to be discharged to: Home Does the patient need discharge transport arranged? Yes RoundTrip coordination needed? Yes Has discharge transport been arranged? No Financial Resource Strain How hard is it for you to pay for the very basics like food, housing, medical care, and heating? Not hard Housing Stability In the last 12 months, was there a time when you were not able to pay the mortgage or rent on time?N In the last 12 months, how many places have you lived? 1 In the last 12 months, was there a time when you did not have a steady place to sleep or slept in ashelter (including now)? N Transportation Needs In the past 12 months, has lack of transportation kept you from medical appointments or from getting medications? no In the past 12 months, has lack of transportation kept you from meetings, work, or from getting things needed for daily living? No Per care planning this pt is currently waiting on a bed at [facility] for surgery. However right now all beds are full at this time. [facility] . CT to follow. Shilpi Mendes BSN/RN-TCC * Brinda French, OPER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-FIELD ASSOCIATE - 09/20/2023 11:20 AM EDT Kamila Patel is a 67 y.o. female on day 3 of admission presenting with Small bowel obstruction (Multi). Subjective Patient in room with at bedside. She is awaiting transfer to [facility] for surgical intervention. She voices no medical complaints at this time. She is up ambulating with her but from time to time. Objective Last Recorded Vitals BP 138/78 Pulse 83 Temp 37.3 C (99.1 F) Resp 16 Wt (!) 42.6 kg (93 lb 14.4 oz) SpO2 96% Intake/Output last 3 Shifts: Intake/Output Summary (Last 24 hours) at 09/20/2023 1120 Last data filed at 09/20/2023 0600 Gross per 24 hour Intake 100 ml Output 3280 ml Net -3180 ml Admission Weight Weight: (!) 41.7 kg (92 lb) (09/17/23 1006) Daily Weight 09/19/23 : (!) 42.6 kg (93 lb 14.4 oz) Image Results FL small bowel series Narrative: Interpreted By: Roberto Sellers, STUDY: FL SMALL BOWEL SERIES; 09/19/2023 12:15 pm INDICATION: Signs/Symptoms:SBO. COMPARISON: None. ACCESSION NUMBER(S): [id number] ORDERING CLINICIAN: ALEXUS MALIK TECHNIQUE: An initial radiograph of the abdomen and pelvis was obtained. Following the oral administration of approximately 330 mL of Gastrografin multiple images were obtained following the progress of the oral contrast at 1/2 hour intervals. The injection was made through the existing nasogastric tube. Surgical clips are present overlying the lower portion of the lumbar spine. Total fluoroscopy time was 0. FINDINGS: Initial supervisor porcelain department image demonstrates a nasogastric tube in the stomach. Multiple fluid-filled loops of bowel are seen. No significant bowel air is seen. Gastrografin remains in the stomach for up to 3 hours. There is diffuse dilatation of the small bowel although contrast does reach the pelvic and right-sided ileal loops. The terminal ileum is not visualized. The right side of the colon is collapsed. The distended bowel loops measure about 6 cm in diameter. The transit time is slow. No pneumatosis intestinalis. Impression: 1. High-grade small bowel obstruction. The findings were reviewed with Dr. Posey. MACRO: None Signed by: Roberto Sellers 09/19/2023 4:17 PM Dictation workstation: [id number] Physical Exam General: Cooperative, in NAD appears frail and sickly Eyes: Conjunctiva clear, sclera white, anicteric Nose: No external deformity, no mucosal crusting or signs of bleeding Throat/Mouth: Moist mucous membranes, normal dentition, no ulcers or lesions NG tube in place Lungs: No respiratory distress; lungs CTAB; no wheezes, rales, rhonchi, or stridor Heart: Normal S1 and S2; regular rate and rhythm; no murmurs, rubs, or gallops Abd - sluggish bowel sounds, no distention. Patient is passing flatus No tenderness with palpation Relevant Results Results for orders placed or performed during the hospital encounter of 09/17/23 (from the past 24 hour(s)) POCT GLUCOSE Result Value Ref Range POCT Glucose 153 (H) 74 - 99 mg/dL Potassium - 2 hours after infusion complete Result Value Ref Range Potassium 3.9 3.5 - 5.3 mmol/L POCT GLUCOSE Result Value Ref Range POCT Glucose 136 (H) 74 - 99 mg/dL POCT GLUCOSE Result Value Ref Range POCT Glucose 180 (H) 74 - 99 mg/dL Phosphorus Result Value Ref Range Phosphorus 3.8 2.5 - 4.9 mg/dL Comprehensive metabolic panel Result Value Ref Range Glucose 160 (H) 74 - 99 mg/dL Sodium 139 136 - 145 mmol/L Potassium 3.7 3.5 - 5.3 mmol/L Chloride 106 98 - 107 mmol/L Bicarbonate 23 21 - 32 mmol/L Anion Gap 14 10 - 20 mmol/L Urea Nitrogen 34 (H) 6 - 23 mg/dL Creatinine 0.55 0.50 - 1.05 mg/dL eGFR >90 >60 mL/min/1.73m*2 Calcium 9.2 8.6 - 10.3 mg/dL Albumin 3.7 3.4 - 5.0 g/dL Alkaline Phosphatase 81 33 - 136 U/L Total Protein 6.5 6.4 - 8.2 g/dL AST 13 9 - 39 U/L Bilirubin, Total 0.2 0.0 - 1.2 mg/dL ALT 8 7 - 45 U/L Magnesium Result Value Ref Range Magnesium 2.30 1.60 - 2.40 mg/dL Lavender Top Result Value Ref Range Extra Tube Hold for add-ons. POCT GLUCOSE Result Value Ref Range POCT Glucose 154 (H) 74 - 99 mg/dL Assessment/Plan Kamila Patel is a 67 y.o. female presenting with vomiting and a crescendo pattern over the lastfew months. 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 She resolved withconservative management. She states over the last number of months she had recurrent episodes of vomiting that started out once a month and became more and more frequent. She is now vomiting daily. She has no real abdominal pain. She has lost 10 pounds over the past couple of months. She is quite thin and appears to have some facial muscle wasting. Principal Problem: Small bowel obstruction (Multi) -Dr. Benito evaluating and treating. -Continue NG tube to [facility]. -Okay for patient to have ice chips and popsicles -Surgical intervention is required transfer to [facility] pending -Continue daily CMP, phosphorus, magnesium -Replace thiamine IV 100 mg x 7 days -Continue IV fluids with potassium K currently 3. 7 magnesium 2.3 protein stable -Patient started on parenteral nutrition per dietitian recommendations PPN increased to 100 mL/h monitor. Continue to monitor labs. -Follow blood sugars Hypertension -Blood pressures running from 134/83 to 158/91 if still up consider increasing lisinopril to 20 mg GERD/gastritis -Continue PPI DVT prophylaxis getting heparin and SCDs Disposition transfer pending. Malnutrition Diagnosis Status: New Malnutrition Diagnosis: Severe malnutrition related to chronic disease or condition As Evidenced by: significant weight loss >7.5% in 3 mo, intake <50% estimated x >5 days, severe muscle atrophy and fat store loss I agree with the dietitian's malnutrition diagnosis. SIOBHAN Pederson * Alexus Malik MD - 09/20/2023 7:40 AM EDT Kamila Patel is a 67 y.o. female on day 3 of admission presenting with Small bowel obstruction (Multi). Subjective Patient states she had a good night and slept well. She denies any pain. She has not had any flatusor bowel movement. There is a small amount in the bottom of the canister per NG tube and it is bilious but there is no output listed in the chart. Objective Physical Exam Patient was sleeping when I went in. She arouses easily. She denies any pain. Her breathing is unlabored. Heart is regular rate and rhythm. Abdomen is soft. Is slightly less distended than yesterday and is nontender Last Recorded Vitals Blood pressure (!) 143/91, pulse 88, temperature 36.7 C (98.1 F), temperature source Temporal, resp. rate 16, height 1.575 m (5' 2.01), weight (!) 42.6 kg (93 lb 14.4 oz), SpO2 95%. Intake/Output last 3 Shifts: I/O last 3 completed shifts: In: 1355 (31.8 mL/kg) [P.O.:80; NG/GT:50] Out: 5230 (122.8 mL/kg) [Urine:1075 (0.7 mL/kg/hr); Emesis/NG output:4155] Weight: 42.6 kg Relevant Results Current Facility-Administered Medications: acetaminophen (Tylenol) tablet 650 mg, 650 mg, oral, q4h PRN OR acetaminophen (Tylenol) oral liquid 650 mg, 650 mg, nasogastric tube, q4h PRN OR acetaminophen (Tylenol) suppository 650 mg, 650 mg, rectal, q4h PRN, Tello Moore MD acetaminophen (Tylenol) tablet 650 mg, 650 mg, oral, q4h PRN OR acetaminophen (Tylenol) oral liquid 650 mg, 650 mg, oral, q4h PRN OR acetaminophen (Tylenol) suppository 650 mg, 650 mg, rectal, q4h PRN, Tello Moore MD Adult Clinimix Parenteral Nutrition Continuous, 75 mL/hr, intravenous, Daily PN, Brinda French, OPER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-FIELD ASSOCIATE, Last Rate: 75 mL/hr at 09/20/23 0600, Rate Verify at 09/20/23 0600 dextrose 50 % injection 25 g, 25 g, intravenous, q15 min PRN, Alexus Malik MD esomeprazole (NexIUM) suspension 40 mg, 40 mg, nasogastric tube, Daily before breakfast, Alexus Malik MD, 40 mg at 09/19/23 1320 famotidine PF (Pepcid) injection 20 mg, 20 mg, intravenous, q24h VIOLETA, Alexus Malik MD, 20 mg at 09/19/23 1123 fat emulsion-plant based (Intralipid) 20 % infusion 50 g, 250 mL, intravenous, Daily Lipids, Alexus Garibay MD, Last Rate: 20.8 mL/hr at 09/20/23 0600, Rate Verify at 09/20/23 0600 glucagon (Glucagen) injection 1 mg, 1 mg, intramuscular, q15 min PRN, Alexus Malik MD heparin (porcine) injection 5,000 Units, 5,000 Units, subcutaneous, q8h, Tello Moore MD, 5,000 Units at 09/20/23 0543 insulin lispro (HumaLOG) injection 0-5 Units, 0-5 Units, subcutaneous, q6h, Brinda French, OPER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-FIELD ASSOCIATE, 1 Units at 09/20/23 0543 lisinopril tablet 10 mg, 10 mg, oral, Daily, Alexus Malik MD, 10 mg at 09/19/23 1320 ondansetron ODT (Zofran-ODT) disintegrating tablet 4 mg, 4 mg, oral, q8h PRN OR ondansetron (Zofran) injection 4 mg, 4 mg, intravenous, q4h PRN, Dakota Driver MD phenoL (Chloraseptic) 1.4 % mouth/throat spray 1 spray, 1 spray, Mouth/Throat, q2h PRN, Alexus Malik MD, 1 spray at 09/17/23 6398 thiamine (Vitamin B1) injection 100 mg, 100 mg, intravenous, Daily, Brinda Jahaira French, OPER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-FIELD ASSOCIATE, 100 mg at 09/19/23 1455 Results for orders placed or performed during the hospital encounter of 09/17/23 (from the past 24 hour(s)) POCT GLUCOSE Result Value Ref Range POCT Glucose 172 (H) 74 - 99 mg/dL POCT GLUCOSE Result Value Ref Range POCT Glucose 153 (H) 74 - 99 mg/dL Potassium - 2 hours after infusion complete Result Value Ref Range Potassium 3.9 3.5 - 5.3 mmol/L POCT GLUCOSE Result Value Ref Range POCT Glucose 136 (H) 74 - 99 mg/dL POCT GLUCOSE Result Value Ref Range POCT Glucose 180 (H) 74 - 99 mg/dL Phosphorus Result Value Ref Range Phosphorus 3.8 2.5 - 4.9 mg/dL Comprehensive metabolic panel Result Value Ref Range Glucose 160 (H) 74 - 99 mg/dL Sodium 139 136 - 145 mmol/L Potassium 3.7 3.5 - 5.3 mmol/L Chloride 106 98 - 107 mmol/L Bicarbonate 23 21 - 32 mmol/L Anion Gap 14 10 - 20 mmol/L Urea Nitrogen 34 (H) 6 - 23 mg/dL Creatinine 0.55 0.50 - 1.05 mg/dL eGFR >90 >60 mL/min/1.73m*2 Calcium 9.2 8.6 - 10.3 mg/dL Albumin 3.7 3.4 - 5.0 g/dL Alkaline Phosphatase 81 33 - 136 U/L Total Protein 6.5 6.4 - 8.2 g/dL AST 13 9 - 39 U/L Bilirubin, Total 0.2 0.0 - 1.2 mg/dL ALT 8 7 - 45 U/L Magnesium Result Value Ref Range Magnesium 2.30 1.60 - 2.40 mg/dL Lavender Top Result Value Ref Range Extra Tube Hold for add-ons. POCT GLUCOSE Result Value Ref Range POCT Glucose 154 (H) 74 - 99 mg/dL [place] small bowel series Result Date: 09/19/2023 Interpreted By: Roberto Sellers, STUDY: [place] SMALL BOWEL SERIES; 09/19/2023 12:15 pm INDICATION: Signs/Symptoms:SBO. COMPARISON: None. ACCESSION NUMBER(S): [id number] ORDERING CLINICIAN: ALEXUS MALIK TECHNIQUE: An initial radiograph of the abdomen and pelvis was obtained. Following the oral administration of approximately 330 mL of Gastrografin multiple images were obtained following the progress of the oral contrast at 1/2 hour intervals. The injection was made through the existing nasogastric tube. Surgical clips are present overlying the lower portion of the lumbar spine. Total fluoroscopy time was 0. FINDINGS: Initial supervisor porcelain department image demonstrates a nasogastric tube in the stomach. Multiple fluid-filled loops of bowel are seen. No significant bowel air is seen. Gastrografin remains in the stomach for up to 3 hours. There is diffuse dilatation of the small bowel although contrast does reach the pelvic and right- sided ileal loops. The terminal ileum is not visualized. The right side ofthe colon is collapsed. The distended bowel loops measure about 6 cm in diameter. The transit time is slow. No pneumatosis intestinalis. 1. High-grade small bowel obstruction. The findings were reviewed with Dr. Posey. MACRO: None Signed by: Roberto Sellers 09/19/2023 4:17 PM Dictation workstation: [id number] Malnutrition Diagnosis Status: New Malnutrition Diagnosis: Severe malnutrition related to chronic disease or condition As Evidenced by: significant weight loss >7.5% in 3 mo, intake <50% estimated x >5 days, severe muscle atrophy and fat store loss I agree with the dietitian's malnutrition diagnosis. Assessment/Plan Principal Problem: Small bowel obstruction (Multi) Her physical exam and plan of care are essentially the same. Reassurance was given to her as we await her transfer. She understands the process. I repeated her abdominal films which now show contrast in the cecum but continued distention approximately. I do not feel this will resolve and she should be transferred and have a laparotomy. Her white count is still normal. We took her PPN up to 100 mL an hour. I spent 10 minutes in the professional and overall care of this patient. Alexus Malik MD * Alexus Malik MD - 09/19/2023 6:19 PM EDT Kamila Patel is a 67 y.o. female on day 2 of admission presenting with Small bowel obstruction (Multi). Subjective Patient passed some flatus today. She had a small bowel follow-through with Gastrografin and has some bloating and occasional discomfort since then. She is in fairly good spirits. Earlier she did have an episode with vomiting of 900 mL of the Gastrografin. Her NG was put back to suction. Objective Awake alert Lungs clear Regular rate and rhythm NG tube in place. Her abdomen is more distended today I suspect from the Gastrografin. Extremities without edema Physical Examsee above Last Recorded Vitals Blood pressure 142/80, pulse 86, temperature 36.6 C (97.9 F), temperature source Temporal, resp. rate 16, height 1.575 m (5' 2.01), weight (!) 42.6 kg (93 lb 14.4 oz), SpO2 98%. Intake/Output last 3 Shifts: I/O last 3 completed shifts: In: 3457.5 (81.2 mL/kg) [P.O.:120; I.V.:2052.5 (48.2 mL/kg); NG/GT:60] Out: 3100 (72.8 mL/kg) [Urine:600 (0.4 mL/kg/hr); Emesis/NG output:2500] Weight: 42.6 kg Relevant Results I reviewed the small bowel follow-through with the radiologist and this is a fairly high-grade small bowel obstruction and probably will not improve without surgery. We then reviewed the CT and he agreed he could not really see a plane at 1 point between the small bowel and the right iliac artery. She is on TPN and her glucose is slightly elevated and her phosphorus slightly low she is receivingsupplementation Malnutrition Diagnosis Status: New Malnutrition Diagnosis: Severe malnutrition related to chronic disease or condition As Evidenced by: significant weight loss >7.5% in 3 mo, intake <50% estimated x >5 days, severe muscle atrophy and fat store loss I agree with the dietitian's malnutrition diagnosis. Assessment/Plan Principal Problem: Small bowel obstruction (Multi) Given the fact she would require surgery and the bowel is in close juxtaposition to the iliac I called the transfer line to try and get her to [facility] where a vascular surgeon would be in attendance if this is injured. I spoke to Dr. Garza and explained the patient's prior history including the radiation. She has agreed to accept the patient but there are currently no beds. The patient wasinformed. Patient brought up her DNR status and states she does not wish to be treated but if the outcome looks futile she does not want extraordinary measures employed. Neuro patient in good spirits nonfocal Respiratory continue to encourage walking and deep breathing Cardiovascular regular rate and hemodynamically stable GI high-grade small bowel obstruction with question of foreign body which I believe represents an intussusception as discussed with the radiologist today. good urine output Metabolic replacing phosphorus Infection no signs symptoms of infection Nutrition she is on peripheral parenteral nutrition and the dietitian recommended turning the rate down to 75 as she may have a refeeding syndrome. She is receiving phosphorus replacement. We will recheck her labs tomorrow and probably take her rate up to 100. At surgery she may well get a central line and central TPN. I spent 30 minutes in the professional and overall care of this patient. Alexus Malik MD * Brinda French, OPER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-FIELD ASSOCIATE - 09/19/2023 2:14 PM EDT Kamila Patel is a 67 y.o. female on day 2 of admission presenting with Small bowel obstruction (Multi). Subjective Patient lying in bed resting comfortably. Patient had a small bowel follow- through this a.m. She reports she is now passing flatus. She is not feeling distended and not having any pain. Patient NG tube to low intermittent wall suction. Patient receiving PPN now. Objective Last Recorded Vitals BP 146/87 (BP Location: Right arm, Patient Position: Lying) Pulse 80 Temp 36.2 C (97.2 F) (Temporal) Resp 18 Wt (!) 42.6 kg (93 lb 14.4 oz) SpO2 97% Intake/Output last 3 Shifts: Intake/Output Summary (Last 24 hours) at 09/19/2023 1414 Last data filed at 09/19/2023 1127 Gross per 24 hour Intake 1375 ml Output 3000 ml Net -1625 ml Admission Weight Weight: (!) 41.7 kg (92 lb) (09/17/23 1006) Daily Weight 09/19/23 : (!) 42.6 kg (93 lb 14.4 oz) Image Results XR abdomen 3+ views Narrative: Interpreted By: Jake Sahni, STUDY: XR ABDOMEN 3+ VIEWS; ; 09/18/2023 6:08 am INDICATION: Signs/Symptoms:SBO. COMPARISON: 09/17/2023 radiographs abdomen. 09/17/2023 CT abdomen/pelvis ACCESSION NUMBER(S): [id number] ORDERING CLINICIAN: ALEXUS MALIK FINDINGS: NG/OG tube tip terminates over the gastric body and side hole just beyond the GE junction. The heart is normal in size. The pulmonary vasculature is within normal limits. No consolidation or pleural effusion. No pneumothorax. There is redemonstration multiple dilated small bowel loops with air-fluid levels, largest measuring up to 6-7 cm. The remainder of the bowel loops are fluid-filled limiting their assessment. Small colonic stool burden. No evidence of free intraperitoneal air. No portal venous gas or pneumatosis intestinalis. Impression: NG/OG tube side hole is just beyond the GE junction. Advancement by 3-4 cm is recommended. Redemonstration of dilated small bowel loops in keeping with a bowel obstruction, evaluation limited due to predominantly fluid-filled nature of the small bowel loops. MACRO: None Signed by: Jake Sahni 09/18/2023 6:28 AM Dictation workstation: [id number] Physical Exam Relevant Results General: Cooperative, in NAD appears frail and sickly Eyes: Conjunctiva clear, sclera white, anicteric Nose: No external deformity, no mucosal crusting or signs of bleeding Throat/Mouth: Moist mucous membranes, normal dentition, no ulcers or lesions Lungs: No respiratory distress; lungs CTAB; no wheezes, rales, rhonchi, or stridor Heart: Normal S1 and S2; regular rate and rhythm; no murmurs, rubs, or gallops Abd - sluggish bowel sounds, no distention. Patient is passing flatus No tenderness with palpation Results for orders placed or performed during the hospital encounter of 09/17/23 (from the past 24 hour(s)) POCT GLUCOSE Result Value Ref Range POCT Glucose 67 (L) 74 - 99 mg/dL POCT GLUCOSE Result Value Ref Range POCT Glucose 71 (L) 74 - 99 mg/dL POCT GLUCOSE Result Value Ref Range POCT Glucose 81 74 - 99 mg/dL POCT GLUCOSE Result Value Ref Range POCT Glucose 79 74 - 99 mg/dL POCT GLUCOSE Result Value Ref Range POCT Glucose 182 (H) 74 - 99 mg/dL Phosphorus Result Value Ref Range Phosphorus 2.4 (L) 2.5 - 4.9 mg/dL Comprehensive metabolic panel Result Value Ref Range Glucose 192 (H) 74 - 99 mg/dL Sodium 136 136 - 145 mmol/L Potassium 4.0 3.5 - 5.3 mmol/L Chloride 109 (H) 98 - 107 mmol/L Bicarbonate 21 21 - 32 mmol/L Anion Gap 10 10 - 20 mmol/L Urea Nitrogen 28 (H) 6 - 23 mg/dL Creatinine 0.49 (L) 0.50 - 1.05 mg/dL eGFR >90 >60 mL/min/1.73m*2 Calcium 8.5 (L) 8.6 - 10.3 mg/dL Albumin 3.3 (L) 3.4 - 5.0 g/dL Alkaline Phosphatase 70 33 - 136 U/L Total Protein 5.7 (L) 6.4 - 8.2 g/dL AST 11 9 - 39 U/L Bilirubin, Total 0.4 0.0 - 1.2 mg/dL ALT 7 7 - 45 U/L Magnesium Result Value Ref Range Magnesium 2.09 1.60 - 2.40 mg/dL Lavender Top Result Value Ref Range Extra Tube Hold for add-ons. POCT GLUCOSE Result Value Ref Range POCT Glucose 172 (H) 74 - 99 mg/dL POCT GLUCOSE Result Value Ref Range POCT Glucose 153 (H) 74 - 99 mg/dL Potassium - 2 hours after infusion complete Result Value Ref Range Potassium 3.9 3.5 - 5.3 mmol/L Assessment/Plan Kamila Patel is a 67 y.o. female presenting with vomiting and a crescendo pattern over the lastfew months. 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 She resolved withconservative management. She states over the last number of months she had recurrent episodes of vomiting that started out once a month and became more and more frequent. She is now vomiting daily. She has no real abdominal pain. She has lost 10 pounds over the past couple of months. She is quite thin and appears to have some facial muscle wasting. Principal Problem: Small bowel obstruction (Multi) -Dr. Benito evaluating and treating. -Continue NG tube to [facility]. -Okay for patient to have ice chips and popsicles - small bowel bowel follow-through today with consideration for surgical intervention. -Continue daily CMP, phosphorus, magnesium -Replace phosphorus IV 15 mmol phosphorus today 2.4 repeat 2 hours after infusion. -Replace thiamine IV 100 mg x 7 days -Continue IV fluids with potassium K currently 3.9 -Patient started on parenteral nutrition per dietitian recommendations slow rate today to 75 mL/h increase tomorrow 100 mL/h. -Follow blood sugars Malnutrition Diagnosis Status: New Malnutrition Diagnosis: Severe malnutrition related to chronic disease or condition As Evidenced by: significant weight loss >7.5% in 3 mo, intake <50% estimated x >5 days, severe muscle atrophy and fat store loss I agree with the dietitian's malnutrition diagnosis. Hypertension -Blood pressures running from 134/83 to 158/91 if still up consider increasing lisinopril to 20 mg GERD/gastritis -Continue PPI DVT prophylaxis getting heparin and SCDs Disposition when medically stable SIOBHAN Pederson * Vannesa Wagner RN - 09/19/2023 11:35 AM EDT 09/19/23 1404 Discharge Planning Living Arrangements Spouse/significant other Support Systems Spouse/significant other Assistance Needed None Type of Residence Private residence Number of Stairs to Enter Residence 1 Number of Stairs Within Residence 13 Do you have animals or pets at home? Yes Type of Animals or Pets 1 cat Who is requesting discharge planning? Provider Home or Post Acute Services None Patient expects to be discharged to: Home Does the patient need discharge transport arranged? Yes RoundTrip coordination needed? No Has discharge transport been arranged? No Financial Resource Strain How hard is it for you to pay for the very basics like food, housing, medical care, and heating? Not hard Housing Stability In the last 12 months, was there a time when you were not able to pay the mortgage or rent on time?N In the last 12 months, how many places have you lived? 1 In the last 12 months, was there a time when you did not have a steady place to sleep or slept in ashelter (including now)? N Transportation Needs In the past 12 months, has lack of transportation kept you from medical appointments or from getting medications? no In the past 12 months, has lack of transportation kept you from meetings, work, or from getting things needed for daily living? No Care Transitions: Patient reviewed during care round meeting this AM and is not medically ready fordischarge today. ADOD TBD. Met with patient, spouse Karel and daughter Corry @ Bedside. Role of TCCexplained. Permission given per patient to discuss discharge planning with family present. She lives with spouse in a 2 story home and feels safe there. PCP is Dr. Galarza. Her pharmacy of choice is [facility] in [place] for medication needs. Denies any difficulty obtaining/affording medications. She is independent at home with ADL's and still drives self. Denies the need for any DME equipment. Discusses discharge plans. States she will return home with , denies any needs or in home services at this time. Care team to follow for needs once plan of care is determined. Vannesa Wagner RN/TCC * Alexus Malik MD - 09/18/2023 7:34 PM EDT Evening rounds. The patient enjoyed going outside and states she is in much better spirits. Her urine output is adequate and she should start her PPN about 8:00. NG tube output is still elevated but is down slightly. Patient still is having no discomfort and states earlier she felt like she might have to move her bowels and has been feeling rumbling. We again discussed the small bowel follow-through tomorrow. All questions were answered. * Brinda French APRN-FIELD ASSOCIATE - 09/18/2023 11:48 AM EDT Kamila Patel is a 67 y.o. female on day 1 of admission presenting with Small bowel obstruction (Multi). Subjective Patient laying in bed able to sit up independently. at bedside. Dr. Benito and to evaluate and discuss treatment plan with patient during time of assessment. Patient feeling good actually. Objective Last Recorded Vitals BP 148/74 Pulse 95 Temp 36.8 C (98.2 F) Resp 17 Wt (!) 41.7 kg (92 lb) SpO2 96% Intake/Output last 3 Shifts: Intake/Output Summary (Last 24 hours) at 09/18/2023 1148 Last data filed at 09/18/2023 0600 Gross per 24 hour Intake 2165 ml Output 1550 ml Net 615 ml Admission Weight Weight: (!) 41.7 kg (92 lb) (09/17/23 1006) Daily Weight 09/17/23 : (!) 41.7 kg (92 lb) Image Results XR abdomen 3+ views Narrative: Interpreted By: Jake Sahni, STUDY: XR ABDOMEN 3+ VIEWS; ; 09/18/2023 6:08 am INDICATION: Signs/Symptoms:SBO. COMPARISON: 09/17/2023 radiographs abdomen. 09/17/2023 CT abdomen/pelvis ACCESSION NUMBER(S): [id number] ORDERING CLINICIAN: ALEXUS MALIK FINDINGS: NG/OG tube tip terminates over the gastric body and side hole just beyond the GE junction. The heart is normal in size. The pulmonary vasculature is within normal limits. No consolidation or pleural effusion. No pneumothorax. There is redemonstration multiple dilated small bowel loops with air-fluid levels, largest measuring up to 6-7 cm. The remainder of the bowel loops are fluid-filled limiting their assessment. Small colonic stool burden. No evidence of free intraperitoneal air. No portal venous gas or pneumatosis intestinalis. Impression: NG/OG tube side hole is just beyond the GE junction. Advancement by 3-4 cm is recommended. Redemonstration of dilated small bowel loops in keeping with a bowel obstruction, evaluation limited due to predominantly fluid-filled nature of the small bowel loops. MACRO: None Signed by: Jake Sahni 09/18/2023 6:28 AM Dictation workstation: [id number] Physical Exam General: Cooperative, in NAD Eyes: Conjunctiva clear, sclera white, anicteric Nose: No external deformity, no mucosal crusting or signs of bleeding Throat/Mouth: Moist mucous membranes, normal dentition, no ulcers or lesions Lungs: No respiratory distress; lungs CTAB; no wheezes, rales, rhonchi, or stridor Heart: Normal S1 and S2; regular rate and rhythm; no murmurs, rubs, or gallops Abd - sluggish bowel sounds, no distention. Patient not passing flatus No tenderness Relevant Results Results for orders placed or performed during the hospital encounter of 09/17/23 (from the past 24 hour(s)) Urinalysis with Reflex Culture and Microscopic Result Value Ref Range Color, Urine Yellow Straw, Yellow Appearance, Urine Clear Clear Specific [place], Urine 1.010 1.005 - 1.035 pH, Urine 5.0 5.0, 5.5, 6.0, 6.5, 7.0, 7.5, 8.0 Protein, Urine NEGATIVE NEGATIVE mg/dL Glucose, Urine NEGATIVE NEGATIVE mg/dL Blood, Urine NEGATIVE NEGATIVE Ketones, Urine 80 (2+) (A) NEGATIVE mg/dL Bilirubin, Urine NEGATIVE NEGATIVE Urobilinogen, Urine <2.0 <2.0 mg/dL Nitrite, Urine NEGATIVE NEGATIVE Leukocyte Esterase, Urine NEGATIVE NEGATIVE Extra Urine Coles Tube Result Value Ref Range Extra Tube Hold for add-ons. Hemoglobin A1C Result Value Ref Range Hemoglobin A1C 5.6 see below % Estimated Average Glucose 114 Not Established mg/dL C-Reactive Protein Result Value Ref Range C-Reactive Protein 0.55 <1.00 mg/dL Type And Screen Result Value Ref Range ABO TYPE O Rh TYPE NEG ANTIBODY SCREEN NEG Basic metabolic panel Result Value Ref Range Glucose 99 74 - 99 mg/dL Sodium 136 136 - 145 mmol/L Potassium 3.9 3.5 - 5.3 mmol/L Chloride 105 98 - 107 mmol/L Bicarbonate 19 (L) 21 - 32 mmol/L Anion Gap 16 10 - 20 mmol/L Urea Nitrogen 39 (H) 6 - 23 mg/dL Creatinine 0.83 0.50 - 1.05 mg/dL eGFR 77 >60 mL/min/1.73m*2 Calcium 8.3 (L) 8.6 - 10.3 mg/dL CBC Result Value Ref Range WBC 8.7 4.4 - 11.3 x10*3/uL nRBC 0.0 0.0 - 0.0 /100 WBCs RBC 4.24 4.00 - 5.20 x10*6/uL Hemoglobin 13.2 12.0 - 16.0 g/dL Hematocrit 39.9 36.0 - 46.0 % MCV 94 80 - 100 fL MCH 31.1 26.0 - 34.0 pg MCHC 33.1 32.0 - 36.0 g/dL RDW 12.9 11.5 - 14.5 % Platelets 320 150 - 450 x10*3/uL Magnesium Result Value Ref Range Magnesium 2.15 1.60 - 2.40 mg/dL Phosphorus Result Value Ref Range Phosphorus 3.1 2.5 - 4.9 mg/dL Light Blue Top Result Value Ref Range Extra Tube Hold for add-ons. Green Top Result Value Ref Range Extra Tube Hold for add-ons. SST TOP Result Value Ref Range Extra Tube Hold for add-ons. Prealbumin Result Value Ref Range Prealbumin 20.3 18.0 - 40.0 mg/dL CBC Result Value Ref Range WBC 8.1 4.4 - 11.3 x10*3/uL nRBC 0.0 0.0 - 0.0 /100 WBCs RBC 3.98 (L) 4.00 - 5.20 x10*6/uL Hemoglobin 12.3 12.0 - 16.0 g/dL Hematocrit 39.3 36.0 - 46.0 % MCV 99 80 - 100 fL MCH 30.9 26.0 - 34.0 pg MCHC 31.3 (L) 32.0 - 36.0 g/dL RDW 12.9 11.5 - 14.5 % Platelets 274 150 - 450 x10*3/uL Basic metabolic panel Result Value Ref Range Glucose 70 (L) 74 - 99 mg/dL Sodium 142 136 - 145 mmol/L Potassium 4.2 3.5 - 5.3 mmol/L Chloride 112 (H) 98 - 107 mmol/L Bicarbonate 19 (L) 21 - 32 mmol/L Anion Gap 15 10 - 20 mmol/L Urea Nitrogen 35 (H) 6 - 23 mg/dL Creatinine 0.72 0.50 - 1.05 mg/dL eGFR >90 >60 mL/min/1.73m*2 Calcium 8.0 (L) 8.6 - 10.3 mg/dL Triglycerides Result Value Ref Range Triglycerides 119 0 - 149 mg/dL POCT GLUCOSE Result Value Ref Range POCT Glucose 72 (L) 74 - 99 mg/dL Phosphorus Result Value Ref Range Phosphorus 2.9 2.5 - 4.9 mg/dL Comprehensive metabolic panel Result Value Ref Range Glucose 82 74 - 99 mg/dL Sodium 142 136 - 145 mmol/L Potassium 4.2 3.5 - 5.3 mmol/L Chloride 113 (H) 98 - 107 mmol/L Bicarbonate 17 (L) 21 - 32 mmol/L Anion Gap 16 10 - 20 mmol/L Urea Nitrogen 30 (H) 6 - 23 mg/dL Creatinine 0.67 0.50 - 1.05 mg/dL eGFR >90 >60 mL/min/1.73m*2 Calcium 8.3 (L) 8.6 - 10.3 mg/dL Albumin 3.4 3.4 - 5.0 g/dL Alkaline Phosphatase 82 33 - 136 U/L Total Protein 5.7 (L) 6.4 - 8.2 g/dL AST 13 9 - 39 U/L Bilirubin, Total 0.5 0.0 - 1.2 mg/dL ALT 8 7 - 45 U/L Magnesium Result Value Ref Range Magnesium 2.00 1.60 - 2.40 mg/dL Assessment/Plan Kamila Patel is a 67 y.o. female presenting with vomiting and a crescendo pattern over the lastfew months. 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 She resolved withconservative management. She states over the last number of months she had recurrent episodes of vomiting that started out once a month and became more and more frequent. She is now vomiting daily. She has no real abdominal pain. She has lost 10 pounds over the past couple of months. She is quite thin and appears to have some facial muscle wasting. Principal Problem: Small bowel obstruction (Multi) -Dr. Benito evaluating and treating. -Continue NG tube to RADAMES SUERO. -Okay for patient to have ice chips and popsicles -Plan for small bowel bowel follow-through tomorrow with consideration for surgical intervention. -Additional labs for nutritional markers including magnesium and phosphorus -Continue IV fluids with potassium recheck BMP tomorrow -Patient started on parenteral nutrition Hypertension -On lisinopril blood pressure systolic 133-154 currently. History of GERD gastritis -Continue PPI DVT prophylaxis patient getting heparin and SCDs Position Home when medically stable after surgical clearance SIOBHAN Pederson * Alexus Malik MD - 09/18/2023 10:36 AM EDT Kamila Patel is a 67 y.o. female on day 1 of admission presenting with Small bowel obstruction (Multi). Subjective Patient actually looks well. She says the NG tube is a little uncomfortable but she also feels likeshe feels better today. She is having no abdominal pain but has not passed flatus or had a bowel movement. She has had over a liter or 1500 mL out of her NG. Acute abdominal series this morning showed continued bowel distention in the visualized bowel loops. Physical Exam Patient seen with . She is awake and alert and quite good spirits. Breathing unlabored. Regular rate and rhythm NG tube in place with bilious drainage. Abdomen is soft and nontender. Extremities without edema. Last Recorded Vitals Blood pressure 148/74, pulse 95, temperature 36.8 C (98.2 F), resp. rate 17, height 1.575 m (5' 2), weight (!) 41.7 kg (92 lb), SpO2 96%. Intake/Output last 3 Shifts: I/O last 3 completed shifts: In: 3164 (75.8 mL/kg) [I.V.:2135 (51.2 mL/kg); NG/GT:30; IV Piggyback:999] Out: 1550 (37.1 mL/kg) [Emesis/NG output:1550] Weight: 41.7 kg Relevant Results Current Facility-Administered Medications: acetaminophen (Tylenol) tablet 650 mg, 650 mg, oral, q4h PRN OR acetaminophen (Tylenol) oral liquid 650 mg, 650 mg, nasogastric tube, q4h PRN OR acetaminophen (Tylenol) suppository 650 mg, 650 mg, rectal, q4h PRN, Tello Moore MD acetaminophen (Tylenol) tablet 650 mg, 650 mg, oral, q4h PRN OR acetaminophen (Tylenol) oral liquid 650 mg, 650 mg, oral, q4h PRN OR acetaminophen (Tylenol) suppository 650 mg, 650 mg, rectal, q4h PRN, Tello Moore MD Adult Clinimix Parenteral Nutrition, 125 mL/hr, intravenous, Daily PN, Alexus Malik MD dextrose 50 % injection 25 g, 25 g, intravenous, q15 min PRN, Alexus Malik MD esomeprazole (NexIUM) suspension 40 mg, 40 mg, nasogastric tube, Daily before breakfast, Alexus Malik MD, 40 mg at 09/18/23 1010 famotidine PF (Pepcid) injection 20 mg, 20 mg, intravenous, q24h VIOLETA, Alexus Malik MD, 20 mg at 09/18/23 1010 fat emulsion fish oil/plant based (SMOFlipid) 20 % IV infusion 50 g, 250 mL, intravenous, Daily Lipids, Alexus Malik MD glucagon (Glucagen) injection 1 mg, 1 mg, intramuscular, q15 min PRN, Alexus Malik MD heparin (porcine) injection 5,000 Units, 5,000 Units, subcutaneous, q8h, Tello Moore MD, 5,000 Units at 09/18/23 0614 insulin lispro (HumaLOG) injection 0-5 Units, 0-5 Units, subcutaneous, q4h, Alexus Malik MD lisinopril tablet 10 mg, 10 mg, oral, Daily, Alexus Malik MD, 10 mg at 09/18/23 1010 ondansetron ODT (Zofran-ODT) disintegrating tablet 4 mg, 4 mg, oral, q8h PRN OR ondansetron (Zofran) injection 4 mg, 4 mg, intravenous, q8h PRN, Tello Moore MD phenoL (Chloraseptic) 1.4 % mouth/throat spray 1 spray, 1 spray, Mouth/Throat, q2h PRN, Alexus Malik MD, 1 spray at 09/17/23 2148 Latest Reference Range & Units 09/18/23 04:30 GLUCOSE 74 - 99 mg/dL 70 (L) SODIUM 136 - 145 mmol/L 142 POTASSIUM 3.5 - 5.3 mmol/L 4.2 CHLORIDE 98 - 107 mmol/L 112 (H) Bicarbonate 21 - 32 mmol/L 19 (L) Anion Gap 10 - 20 mmol/L 15 Blood Urea Nitrogen 6 - 23 mg/dL 35 (H) Creatinine 0.50 - 1.05 mg/dL 0.72 EGFR >60 mL/min/1.73m*2 >90 Calcium 8.6 - 10.3 mg/dL 8.0 (L) (L): Data is abnormally low (H): Data is abnormally high Interpreted By: Jake Sahni, STUDY: XR ABDOMEN 3+ VIEWS; ; 09/18/2023 6:08 am INDICATION: Signs/Symptoms:SBO. COMPARISON: 09/17/2023 radiographs abdomen. 09/17/2023 CT abdomen/pelvis ACCESSION NUMBER(S): [id number] ORDERING CLINICIAN: ALEXUS MALIK FINDINGS: NG/OG tube tip terminates over the gastric body and side hole just beyond the GE junction. The heart is normal in size. The pulmonary vasculature is within normal limits. No consolidation or pleural effusion. No pneumothorax. There is redemonstration multiple dilated small bowel loops with air-fluid levels, largest measuring up to 6-7 cm. The remainder of the bowel loops are fluid-filled limiting their assessment. Small colonic stool burden. No evidence of free intraperitoneal air. No portal venous gas or pneumatosis intestinalis. IMPRESSION: NG/OG tube side hole is just beyond the GE junction. Advancement by 3-4 cm is recommended. Redemonstration of dilated small bowel loops in keeping with a bowel obstruction, evaluation limited due to predominantly fluid-filled nature of the small bowel loops. MACRO: None Signed by: Jake Sahni 09/18/2023 6:28 AM Dictation workstation: Assessment/Plan Principal Problem: Small bowel obstruction (Multi) Neuro: Patient is actually feeling quite well and request to go outside. The staff is short today as they have a lot of sitters. I feel that the patient is aware and competent as is her . We will allow her to go outside in the wheelchair. Her NG tube is currently clamped for her lisinopril and we covered the IV on the pole and not pulling on it. They felt comfortable doing it given her previous history. Respiratory: Encouraged to get up and ambulate and cough and deep breathe Cardiovascular: Stable regular rate and rhythm GI: Still no bowel function and high NG outputs. We will continue the NG. We will advance it a few centimeters and begin flushes. Await return of bowel function. : Patient has voided but there is no volume recorded although being on the TPN we will now have sasha accurate measurement. Infectious: No identified source or suspicion. Heme: Stable Metabolic: Minor variations. Nutrition: Her prealbumin came back at 20 which is at the very low end of normal. Given her 10 pound weight loss I think to at least try and give her some nutrition with PPN would be reasonable. There is no one to put a PICC line in this weekend. We will DC her peripheral IVs and continue to monitor her labs. Plan of care: We will continue her NG tube to suction today and plan for small bowel follow-throughtomorrow. They understand I will review this and the CT with the radiologist and then call [facility] to see if given her surgical as well as radiation history and the position of the bowel obstruction if it would be more prudent to do the operation at [facility] with vascular backup. We again discussed her CODE STATUS and the fact that she can remain DNR but that a limited ICU stay or intubation into recuperative manner would not be unreasonable. She understands if survival looks futile decision can be made to terminate care and keep her comfortable. She gives permission for her to decide if she is unable. I spent 20 minutes in the professional and overall care of this patient. Alexus Malik MD documented in this [facility] Work Phone: 1(535) 493-569205-21-2024 Plan of care note* Care Plan - Jie Alvarado RN - 09/20/2023 7:38 AM EDT The patient's goals for the shift include rest have bm The clinical goals for the shift include Tolerate PPN x 24 hours, no s/sx of infiltration to peripheral site no falls, labs wdl, tolerate ppn [facility]05-21-2024 Miscellaneous Notes* Care Plan - Jie Alvarado RN - 09/20/2023 7:38 AM EDT The patient's goals for the shift include rest have bm The clinical goals for the shift include Tolerate PPN x 24 hours, no s/sx of infiltration to peripheral site no falls, labs wdl, tolerate ppn * Care Plan - Jie Alvarado RN - 09/19/2023 7:53 AM EDT The patient's goals for the shift include rest feel better The clinical goals for the shift include Tolerate PPN x 24 hours, no s/sx of infiltration to peripheral site no falls, labs wdl, tolerate ppn * Care Plan - Kiersten Henson RN - 09/19/2023 12:44 AM EDT The patient's goals for the shift include rest The clinical goals for the shift include Tolerate PPN x 24 hours, no s/sx of infiltration to peripheral site Problem: Nutrition Goal: Less than 5 days NPO/clear liquids 09/19/202343 by Kiersten Henson RN Outcome: Progressing 09/19/202343 by Kiersten Henson RN Outcome: Progressing Goal: Oral intake greater than 50% 09/19/202343 by Kiersten Henson RN Outcome: Progressing 09/19/202343 by Kiersten Henson RN Outcome: Progressing Goal: Oral intake greater 75% 09/19/202343 by Kiersten Henson RN Outcome: Progressing 09/19/202343 by Kiersten Henson RN Outcome: Progressing Goal: Consume prescribed supplement 09/19/202343 by Kiersten Henson RN Outcome: Progressing 09/19/202343 by Kiersten Henson RN Outcome: Progressing Goal: Adequate PO fluid intake 09/19/202343 by Kiersten Henson RN Outcome: Progressing 09/19/2023 0044 by Kiersten Henson RN Outcome: Progressing Goal: Nutrition support goals are met within 48 hrs 09/19/2023 0044 by Kiersten Henson RN Outcome: Progressing 09/19/2023 004 by Kiersten Henson RN Outcome: Progressing Goal: Nutrition support is meeting 75% of nutrient needs 09/19/2023 0044 by Kiersten Henson RN Outcome: Progressing 09/19/2023 0044 by Kiersten Henson RN Outcome: Progressing Goal: Tube feed tolerance 09/19/2023 0044 by Kiersten Henson RN Outcome: Progressing 09/19/2023 0044 by Kiersten Henson RN Outcome: Progressing Goal: BG 80-180 mg/dL 09/19/2023 004 by Kiersten Henson RN Outcome: Progressing 09/19/2023 004 by Kiersten Henson RN Outcome: Progressing Goal: Lab values WNL 09/19/2023 0044 by Kiersten Henson RN Outcome: Progressing 09/19/2023 004 by Kiersten Henson RN Outcome: Progressing Goal: Electrolytes WNL 09/19/2023 0044 by Kiersten Henson RN Outcome: Progressing 09/19/2023 0044 by Kiersten Henson RN Outcome: Progressing Goal: Promote healing 09/19/2023 004 by Kiersten Henson, MAUREEN Outcome: Progressing 09/19/2023 004 by Kiersten Henson RN Outcome: Progressing Goal: Maintain stable weight 09/19/2023 0044 by Kiersten Henson RN Outcome: Progressing 09/19/2023 004 by Kiersten Henson RN Outcome: Progressing Goal: Reduce weight from edema/fluid 09/19/2023 0044 by Kiersten Henson RN Outcome: Progressing 09/19/2023 0044 by Kiersten Henson RN Outcome: Progressing Goal: Gradual weight gain 09/19/2023 0044 by Kiersten Henson, RN Outcome: Progressing 09/19/2023 004 by Kiersten Henson RN Outcome: Progressing Goal: Improve ostomy output 09/19/2023 004 by Kiersten Henson RN Outcome: Progressing 09/19/2023 004 by Kiersten Henson RN Outcome: Progressing Problem: Psychosocial Needs Goal: Demonstrates ability to cope with hospitalization/illness 09/19/2023 0044 by Kiersten Henson RN Outcome: Progressing 09/19/202343 by Kiersten Henson RN Outcome: Progressing Goal: Collaborate with me, my family, and caregiver to identify my specific goals 09/19/202343 by Kiersten Henson RN Outcome: Progressing 09/19/202343 by Kiersten Henson RN Outcome: Progressing * Significant Event - Erin Coe RN - 09/18/2023 6:29 PM EDT Gave for blood sugar per order * Care Plan - Erin Coe RN - 09/18/2023 2:12 PM EDT The patient's goals for the shift include rest The clinical goals for the shift include no nausea or vomiting this shift Over the shift, the patient did make progress. * Care Plan - Kiersten Henson RN - 09/18/2023 12:20 AM EDT The patient's goals for the shift include rest The clinical goals for the shift include use call light for needs and safety Problem: Nutrition Goal: Less than 5 days NPO/clear liquids 09/18/202319 by Kiersten Henson RN Outcome: Progressing 09/18/202318 by Kiersten Henson RN Outcome: Progressing Goal: Oral intake greater than 50% 09/18/202319 by Kiersten Henson RN Outcome: Progressing 09/18/202318 by Kiersten Henson RN Outcome: Progressing Goal: Oral intake greater 75% 09/18/202319 by Kiersten Henson RN Outcome: Progressing 09/18/202318 by Kiersten Henson RN Outcome: Progressing Goal: Consume prescribed supplement 09/18/202319 by Kiersten Henson RN Outcome: Progressing 09/18/202318 by Kiersten Henson RN Outcome: Progressing Goal: Adequate PO fluid intake 09/18/20230 by Kiersten Henson RN Outcome: Progressing 09/18/202318 by Kiersten Henson RN Outcome: Progressing Goal: Nutrition support goals are met within 48 hrs 09/18/202319 by Kiersten Henson RN Outcome: Progressing 09/18/202318 by Kiersten Henson RN Outcome: Progressing Goal: Nutrition support is meeting 75% of nutrient needs 09/18/202319 by Kiersten Henson RN Outcome: Progressing 09/18/202318 by Kiersten Henson RN Outcome: Progressing Goal: Tube feed tolerance 09/18/2023 002 by Kiersten Henson RN Outcome: Progressing 09/18/202318 by Kiersten Henson RN Outcome: Progressing Goal: BG 80-180 mg/dL 09/18/202319 by Kiersten Henson RN Outcome: Progressing 09/18/202318 by Kiersten Henson RN Outcome: Progressing Goal: Lab values WNL 09/18/202319 by Kiersten Henson RN Outcome: Progressing 09/18/202318 by Kiersten Henson RN Outcome: Progressing Goal: Electrolytes WNL 09/18/2023 002 by Kiersten Henson RN Outcome: Progressing 09/18/202318 by Kiersten Henson RN Outcome: Progressing Goal: Promote healing 09/18/2023 002 by Kiersten Henson RN Outcome: Progressing 09/18/202318 by Kiersten Henson RN Outcome: Progressing Goal: Maintain stable weight 09/18/202319 by Kiersten Henson RN Outcome: Progressing 09/18/202318 by Kiersten Henson RN Outcome: Progressing Goal: Reduce weight from edema/fluid 09/18/2023 002 by Kiersten Henson RN Outcome: Progressing 09/18/202318 by Kiersten Henson RN Outcome: Progressing Goal: Gradual weight gain 09/18/2023 002 by Kiersten Henson RN Outcome: Progressing 09/18/202318 by Kiersten Henson RN Outcome: Progressing Goal: Improve ostomy output 09/18/202319 by Kiersten Henson RN Outcome: Progressing 09/18/202318 by Kiersten Henson RN Outcome: Progressing The patient's goals for the shift include rest The clinical goals for the shift include use call light for needs and safety * Individualized Overall Plan of Care Note - Alexus Malik MD - 09/17/2023 9:17 PM EDT Patient is seen on evening rounds. NG tube is in and functioning. Other than the discomfort from the NG tube in the back of her throat she is denying any pain. She is afebrile with stable vital signs. She denies passing any flatus. I will place her back on her Pepcid as well as Prilosec and have offered her Chloraseptic spray to help with tube discomfort. Continue same plan. documented in this [facility] Work Phone: [phone]) 610-518905-20-2024 Consult note* Erin Talley RDN, LD - 09/19/2023 1:44 PM EDTAssociated Order(s): IP CONSULT TO NUTRITION SERVICES Nutrition Initial Assessment: Nutrition Assessment Reason for Assessment: Admission nursing screening Patient is a 67 y.o. female presenting with small bowel obstruction 09/19/23 met with patient and . Has had difficulty eating since 2016 - had ovarian/cervical cancer. Has been treated for H Pylori, tried Gluten free and dairy free diet and did not help. Has not been able to eat for months without pain, vomiting (even water) Highest weight was 115# Currently with NG - PPN running at 125 ml/hr which is overfeeding and having low P - expect refeeding syndrome. Recommend decrease PPN to 75 ml/hr for another day then goal rate 100 ml/hr if no refeeding. Sent Dr. Malik message. Nutrition History: Energy Intake: Poor < 50 % Food and Nutrient History: Has had difficulty eating since 2016 - has been very poor for past several months Vitamin/Herbal Supplement Use: Biotin, Calcitrate, MVI Food Allergies/Intolerances: None GI Symptoms: Vomiting and Abdominal pain Oral Problems: None Anthropometrics: Height: 157.5 cm (5' 2.01) Weight: (!) 42.6 kg (93 lb 14.4 oz) BMI (Calculated): 17.17 IBW/kg (Dietitian Calculated): 50 kg Percent of IBW: 85 % Weight History: Daily Weight 09/19/23 : (!) 42.6 kg (93 lb 14.4 oz) 09/12/23 : (!) 44.5 kg (98 lb) 08/22/23 : 45.4 kg (100 lb) 07/11/23 : (!) 44.7 kg (98 lb 8 oz) 06/27/23 : 45.2 kg (99 lb 9.6 oz) 06/06/23 : (!) 43.1 kg (95 lb 1.6 oz) 05/30/23 : (!) 43.5 kg (96 lb) 05/26/23 : (!) 44.2 kg (97 lb 7.1 oz) 04/13/23 : 49.4 kg (109 lb) 05/24/23 : 45.4 kg (100 lb 1.4 oz) Weight Change %: Weight History / % Weight Change: loss 15# (14%) past few months Significant Weight Loss: Yes Interpretation of Weight Loss: >7.5% in 3 months Nutrition Focused Physical Exam Findings: Subcutaneous Fat Loss: Orbital Fat Pads: Severe (dark circles, hollowing and loose skin) Buccal Fat Pads: Severe (hollow, sunken and narrow face) Triceps: Severe (negligible fat tissue) Ribs: Severe (depression between the ribs very apparent, iliac crest very prominent) Muscle Wasting: Temporalis: Severe (hollowed scooping depression) Pectoralis (Clavicular Region): Severe (protruding prominent clavicle) Deltoid/Trapezius: Severe (squared shoulders, acromion process prominent) Interosseous: Mild-Moderate (slightly depressed area between thumb and forefinger) Trapezius/Infraspinatus/Supraspinatus (Scapular Region): Severe (prominent visual scapula, depression between ribs, scapula or shoulder) Quadriceps: Severe (depressions on inner and outer thigh) Gastrocnemius: Severe (minimal muscle definition) Edema: Edema: none Physical Findings: Hair: Positive (hair loss) Mouth: Negative Nails: Negative Skin: Negative Nutrition Significant Labs: BG POCT trend: Results from last 7 days Lab Units 09/19/23 1204 09/19/23 0824 09/19/23 0401 09/18/23 1911 09/18/23 1748 POCT GLUCOSE mg/dL 153* 172* 182* 79 81 , TPN/PPN Labs: Results from last 7 days Lab Units 09/19/23 1241 09/19/23 0446 09/18/23 1115 09/18/23 0430 09/17/23 1513 GLUCOSE mg/dL -- 192* 82 70* 99 POTASSIUM mmol/L 3.9 4.0 4.2 4.2 3.9 PHOSPHORUS mg/dL -- 2.4* 2.9 -- 3.1 MAGNESIUM mg/dL -- 2.09 2.00 -- 2.15 SODIUM mmol/L -- 136 142 142 136 CHLORIDE mmol/L -- 109* 113* 112* 105 ALT U/L -- 7 8 -- -- AST U/L -- 11 13 -- -- ALK PHOS U/L -- 70 82 -- -- BILIRUBIN TOTAL mg/dL -- 0.4 0.5 -- -- TRIGLYCERIDES mg/dL -- -- -- 119 -- Nutrition Specific Medications: Scheduled medications famotidine, 20 mg, intravenous, q24h VIOLETA fat emulsion-plant based, 250 mL, intravenous, Daily Lipids insulin lispro, 0-5 Units, subcutaneous, q4h lisinopril, 10 mg, oral, Daily sodium phosphate, 15 mmol, intravenous, Once Continuous medications Adult Clinimix Parenteral Nutrition Continuous, 75 mL/hr I/O: Last BM Date: 09/17/23; Dietary Orders (From admission, onward) Start Ordered 09/17/23 1724 NPO Diet Except: Sips with meds, Ice chips, Other (specify); Additional Details: Popsicles; Effective now Diet effective now Question Answer Comment Except: Sips with meds Except: Ice chips Except: Other (specify) Additional Details Popsicles 09/17/23 1725 Estimated Needs: Total Energy Estimated Needs (kCal): 1400 kCal Method for Estimating Needs: 30-35 kcal/kg = 7795-8575 kcal Total Protein Estimated Needs (g): 60 g Method for Estimating Needs: 1.2-1.5 gm/kg = 51-64 Nutrition Diagnosis Malnutrition Diagnosis Patient has Malnutrition Diagnosis: Yes Diagnosis Status: New Malnutrition Diagnosis: Severe malnutrition related to chronic disease or condition As Evidenced by: significant weight loss >7.5% in 3 mo, intake <50% estimated x >5 days, severe muscle atrophy and fat store loss Nutrition Diagnosis Patient has Nutrition Diagnosis: Yes Diagnosis Status (1): New Nutrition Diagnosis 1: Altered GI function Related to (1): small bowel obstruction As Evidenced by (1): vomiting, abdominal pain, imaging Nutrition Interventions/Recommendations Nutrition Prescription: Individualized Nutrition Prescription Provided for : Parenteral nutrition Nutrition Interventions: Interventions: Parenteral nutrition/ IV fluids, Vitamin supplement therapy, Mineral supplement therapy Parenteral Nutrition/IV Fluids: Modify concentration of parenteral nutrition Formula: Standard peripheral formula AA 4.25%, dextrose 5% Electrolytes: Standard Elements: Multivitamin, Trace elements Continuous Rate (mL/hr): 125 mL/hr Total Volume (mL/day): 3250 mL/day (with lipids) Total Volume (mL/kg): 76 mL/hr Total Parenteral Kcal (kcal/day): 1520 kcal/day Total Parenteral Kcal (kcal/kg): 36 kcal/kg Total Protein (g/day): 128 g/day Total Protein (g/kg): 3 g/kg Glucose Infusion Rate (GIR) (mg/kg/min): 2.44 mg/kg/min Parenteral Additional Recommendations: Due to risk of refeeding and increase in Glucose and drop inPhosphorus - recommend decreasing PPN rate to 75 ml/hr x 1 day then increase to 100 ml/hr goal rate= 1316 kcal (31 kcal/kg) 102 gm protein (2.4 gm/kg) Fat Emulsion 20%: Intralipid Fat Emulsion Rate (mL/hr): 20.8 mL/hr Fat Emulsion Volume (mL/day): 250 mL/day Fat Emulsion (g/kg): 1.3 g/kg Fat Emulsion (g/day): 55 g/day Blood Glucose Frequency: Every 6 hours Labs: Renal panel and magnesium daily, Triglycerides: now and each week, LFTs: now and each week Vitamin Supplement Therapy: Thiamin Goal: Thiamin 100 mg/day x 7 days Mineral Supplement Therapy: Phosphorus, Potassium, Magnesium Goal: Monitor daily for refeeding syndrome - every 12 hrs Additional Interventions: Moniotor for refeeding - K, Mg, P, Glucose - Recommend adding Thiamin 100mg/day x 7 days Collaboration and Referral of Nutrition Care: Team meeting involving nutrition professional Goal: IDT meeting Nutrition Education: PPN -= will assist with nutrition once SBFT results are made Nutrition Monitoring and Evaluation Food/Nutrient Related History Monitoring Monitoring and Evaluation Plan: Enteral and parenteral nutrition intake Enteral and Parenteral Nutrition Intake: Parenteral nutrition formula/solution, Parenteral nutrition intake Criteria: Tolerate without refeeding syndrome Body Composition/Growth/Weight History Monitoring and Evaluation Plan: Weight Weight: Measured weight Criteria: Maintain/gain Biochemical Data, Medical Tests and Procedures Monitoring and Evaluation Plan: Electrolyte/renal panel, Glucose/endocrine profile Electrolyte and Renal Panel: Potassium, Phosphorus, Magnesium Criteria: WNL Glucose/Endocrine Profile: Glucose, casual Criteria: 100-140 gm/dl Nutrition Focused Physical Findings Monitoring and Evaluation Plan: Adipose, Digestive System, Muscles Adipose: Loss of subcutaneous fat Criteria: Prevent further loss Digestive System: Abdominal distension Criteria: Improvement Muscles: Muscle atrophy Criteria: Prevent further loss Time Spent/Follow-up Reminder: Time Spent (min): 60 minutes Last Date of Nutrition Visit: 09/19/23 Nutrition Follow-Up Needed?: 3-5 days Follow up Comment: PPN, labs Erin Talley RDN, LD [facility] Work Phone: 1([phone]) 923-541205-20-2024 Consult note* Erin Talley RDN, LD - 09/19/2023 1:44 PM EDTAssociated Order(s): IP CONSULT TO NUTRITION SERVICES Nutrition Initial Assessment: Nutrition Assessment Reason for Assessment: Admission nursing screening Patient is a 67 y.o. female presenting with small bowel obstruction 09/19/23 met with patient and . Has had difficulty eating since 2016 - had ovarian/cervical cancer. Has been treated for H Pylori, tried Gluten free and dairy free diet and did not help. Has not been able to eat for months without pain, vomiting (even water) Highest weight was 115# Currently with NG - PPN running at 125 ml/hr which is overfeeding and having low P - expect refeeding syndrome. Recommend decrease PPN to 75 ml/hr for another day then goal rate 100 ml/hr if no refeeding. Sent Dr. Malik message. Nutrition History: Energy Intake: Poor < 50 % Food and Nutrient History: Has had difficulty eating since 2016 - has been very poor for past several months Vitamin/Herbal Supplement Use: Biotin, Calcitrate, MVI Food Allergies/Intolerances: None GI Symptoms: Vomiting and Abdominal pain Oral Problems: None Anthropometrics: Height: 157.5 cm (5' 2.01) Weight: (!) 42.6 kg (93 lb 14.4 oz) BMI (Calculated): 17.17 IBW/kg (Dietitian Calculated): 50 kg Percent of IBW: 85 % Weight History: Daily Weight 09/19/23 : (!) 42.6 kg (93 lb 14.4 oz) 09/12/23 : (!) 44.5 kg (98 lb) 08/22/23 : 45.4 kg (100 lb) 07/11/23 : (!) 44.7 kg (98 lb 8 oz) 06/27/23 : 45.2 kg (99 lb 9.6 oz) 06/06/23 : (!) 43.1 kg (95 lb 1.6 oz) 05/30/23 : (!) 43.5 kg (96 lb) 05/26/23 : (!) 44.2 kg (97 lb 7.1 oz) 04/13/23 : 49.4 kg (109 lb) 05/24/23 : 45.4 kg (100 lb 1.4 oz) Weight Change %: Weight History / % Weight Change: loss 15# (14%) past few months Significant Weight Loss: Yes Interpretation of Weight Loss: >7.5% in 3 months Nutrition Focused Physical Exam Findings: Subcutaneous Fat Loss: Orbital Fat Pads: Severe (dark circles, hollowing and loose skin) Buccal Fat Pads: Severe (hollow, sunken and narrow face) Triceps: Severe (negligible fat tissue) Ribs: Severe (depression between the ribs very apparent, iliac crest very prominent) Muscle Wasting: Temporalis: Severe (hollowed scooping depression) Pectoralis (Clavicular Region): Severe (protruding prominent clavicle) Deltoid/Trapezius: Severe (squared shoulders, acromion process prominent) Interosseous: Mild-Moderate (slightly depressed area between thumb and forefinger) Trapezius/Infraspinatus/Supraspinatus (Scapular Region): Severe (prominent visual scapula, depression between ribs, scapula or shoulder) Quadriceps: Severe (depressions on inner and outer thigh) Gastrocnemius: Severe (minimal muscle definition) Edema: Edema: none Physical Findings: Hair: Positive (hair loss) Mouth: Negative Nails: Negative Skin: Negative Nutrition Significant Labs: BG POCT trend: Results from last 7 days Lab Units 09/19/23 1204 09/19/23 0824 09/19/23 0401 09/18/23 1911 09/18/23 1748 POCT GLUCOSE mg/dL 153* 172* 182* 79 81 , TPN/PPN Labs: Results from last 7 days Lab Units 09/19/23 1241 09/19/23 0446 09/18/23 1115 09/18/23 0430 09/17/23 1513 GLUCOSE mg/dL -- 192* 82 70* 99 POTASSIUM mmol/L 3.9 4.0 4.2 4.2 3.9 PHOSPHORUS mg/dL -- 2.4* 2.9 -- 3.1 MAGNESIUM mg/dL -- 2.09 2.00 -- 2.15 SODIUM mmol/L -- 136 142 142 136 CHLORIDE mmol/L -- 109* 113* 112* 105 ALT U/L -- 7 8 -- -- AST U/L -- 11 13 -- -- ALK PHOS U/L -- 70 82 -- -- BILIRUBIN TOTAL mg/dL -- 0.4 0.5 -- -- TRIGLYCERIDES mg/dL -- -- -- 119 -- Nutrition Specific Medications: Scheduled medications famotidine, 20 mg, intravenous, q24h VIOLETA fat emulsion-plant based, 250 mL, intravenous, Daily Lipids insulin lispro, 0-5 Units, subcutaneous, q4h lisinopril, 10 mg, oral, Daily sodium phosphate, 15 mmol, intravenous, Once Continuous medications Adult Clinimix Parenteral Nutrition Continuous, 75 mL/hr I/O: Last BM Date: 09/17/23; Dietary Orders (From admission, onward) Start Ordered 09/17/23 172 NPO Diet Except: Sips with meds, Ice chips, Other (specify); Additional Details: Popsicles; Effective now Diet effective now Question Answer Comment Except: Sips with meds Except: Ice chips Except: Other (specify) Additional Details Popsicles 09/17/23 172 Estimated Needs: Total Energy Estimated Needs (kCal): 1400 kCal Method for Estimating Needs: 30-35 kcal/kg = 7467-5403 kcal Total Protein Estimated Needs (g): 60 g Method for Estimating Needs: 1.2-1.5 gm/kg = 51-64 Nutrition Diagnosis Malnutrition Diagnosis Patient has Malnutrition Diagnosis: Yes Diagnosis Status: New Malnutrition Diagnosis: Severe malnutrition related to chronic disease or condition As Evidenced by: significant weight loss >7.5% in 3 mo, intake <50% estimated x >5 days, severe muscle atrophy and fat store loss Nutrition Diagnosis Patient has Nutrition Diagnosis: Yes Diagnosis Status (1): New Nutrition Diagnosis 1: Altered GI function Related to (1): small bowel obstruction As Evidenced by (1): vomiting, abdominal pain, imaging Nutrition Interventions/Recommendations Nutrition Prescription: Individualized Nutrition Prescription Provided for : Parenteral nutrition Nutrition Interventions: Interventions: Parenteral nutrition/ IV fluids, Vitamin supplement therapy, Mineral supplement therapy Parenteral Nutrition/IV Fluids: Modify concentration of parenteral nutrition Formula: Standard peripheral formula AA 4.25%, dextrose 5% Electrolytes: Standard Elements: Multivitamin, Trace elements Continuous Rate (mL/hr): 125 mL/hr Total Volume (mL/day): 3250 mL/day (with lipids) Total Volume (mL/kg): 76 mL/hr Total Parenteral Kcal (kcal/day): 1520 kcal/day Total Parenteral Kcal (kcal/kg): 36 kcal/kg Total Protein (g/day): 128 g/day Total Protein (g/kg): 3 g/kg Glucose Infusion Rate (GIR) (mg/kg/min): 2.44 mg/kg/min Parenteral Additional Recommendations: Due to risk of refeeding and increase in Glucose and drop inPhosphorus - recommend decreasing PPN rate to 75 ml/hr x 1 day then increase to 100 ml/hr goal rate= 1316 kcal (31 kcal/kg) 102 gm protein (2.4 gm/kg) Fat Emulsion 20%: Intralipid Fat Emulsion Rate (mL/hr): 20.8 mL/hr Fat Emulsion Volume (mL/day): 250 mL/day Fat Emulsion (g/kg): 1.3 g/kg Fat Emulsion (g/day): 55 g/day Blood Glucose Frequency: Every 6 hours Labs: Renal panel and magnesium daily, Triglycerides: now and each week, LFTs: now and each week Vitamin Supplement Therapy: Thiamin Goal: Thiamin 100 mg/day x 7 days Mineral Supplement Therapy: Phosphorus, Potassium, Magnesium Goal: Monitor daily for refeeding syndrome - every 12 hrs Additional Interventions: Moniotor for refeeding - K, Mg, P, Glucose - Recommend adding Thiamin 100mg/day x 7 days Collaboration and Referral of Nutrition Care: Team meeting involving nutrition professional Goal: IDT meeting Nutrition Education: PPN -= will assist with nutrition once SBFT results are made Nutrition Monitoring and Evaluation Food/Nutrient Related History Monitoring Monitoring and Evaluation Plan: Enteral and parenteral nutrition intake Enteral and Parenteral Nutrition Intake: Parenteral nutrition formula/solution, Parenteral nutrition intake Criteria: Tolerate without refeeding syndrome Body Composition/Growth/Weight History Monitoring and Evaluation Plan: Weight Weight: Measured weight Criteria: Maintain/gain Biochemical Data, Medical Tests and Procedures Monitoring and Evaluation Plan: Electrolyte/renal panel, Glucose/endocrine profile Electrolyte and Renal Panel: Potassium, Phosphorus, Magnesium Criteria: WNL Glucose/Endocrine Profile: Glucose, casual Criteria: 100-140 gm/dl Nutrition Focused Physical Findings Monitoring and Evaluation Plan: Adipose, Digestive System, Muscles Adipose: Loss of subcutaneous fat Criteria: Prevent further loss Digestive System: Abdominal distension Criteria: Improvement Muscles: Muscle atrophy Criteria: Prevent further loss Time Spent/Follow-up Reminder: Time Spent (min): 60 minutes Last Date of Nutrition Visit: 09/19/23 Nutrition Follow-Up Needed?: 3-5 days Follow up Comment: PPN, labs Erin Talley RDN, LD * Alexus Malik MD - 09/17/2023 3:29 PM EDT Reason For Consult Surgical evaluation of a small bowel obstruction found on CT scan History Of Present Illness Kamila Patel is a 67 y.o. female presenting with vomiting and a crescendo pattern over the lastfew months. 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 She resolved withconservative management. She states over the last number of months she had recurrent episodes of vomiting that started out once a month and became more and more frequent. She is now vomiting daily. She has no real abdominal pain. She has lost 10 pounds over the past couple of months. She is quite thin and appears to have some facial muscle wasting. She is seen with her and is very pleasant.. Past Medical History She has a past medical history of Encounter for full-term uncomplicated delivery ([facility]), Encounter for gynecological examination (general) (routine) without abnormal findings (09/16/2021), GERD (gastroesophageal reflux disease), Hypertension, Personal history of malignant neoplasm of other partsof uterus, and Personal history of other medical treatment. Hypertension is controlled on her current medication Surgical History She has a past surgical history that includes Colonoscopy (02/25/2012); Tubal ligation (08/03/1989); Hysterectomy (08/2011); Carpal tunnel release; Tonsillectomy; and Esophagogastroduodenoscopy (2016). Patient had a EGD and colonoscopy in May of this year and was treated for H. pylori. Colonoscopy was a poor prep but no lesions were found. In 2011 she was found to have cervical as well as endometrial cancer and underwent a CELESTE with BSO as well as retroperitoneal lymph node dissection. Clipsare seen on the CT Social History She reports that she has never smoked. She has never used smokeless tobacco. She reports that she does not drink alcohol and does not use drugs. Family History Family History Problem Relation Name Age of Onset Heart attack Mother Coronary artery disease Mother Hypertension Father Leukemia Father Diabetes Sister Heart attack Brother Allergies Patient has no known allergies. Review of Systems Patient denies any strokelike symptoms. She denies any chest pain or shortness of breath. She states she has a bloated feeling in her abdomen but denies any pain per se. She had a small bowel movement this morning. Physical Exam Awake alert conversant Respirations nonlabored Regular rate Abdomen is soft and she is not grossly distended but someone who appears his somewhat cachectic if she does I would think this does represent abdominal distention. She has discomfort but no true painor peritoneal signs. Extremities no edema and she is moving all extremities. Last Recorded Vitals Blood pressure (!) 160/92, pulse 100, temperature 36.7 C (98.1 F), temperature source Temporal, resp. rate 18, height 1.575 m (5' 2), weight (!) 41.7 kg (92 lb), SpO2 96%. Relevant Results Latest Reference Range & Units 09/17/23 11:21 GLUCOSE 74 - 99 mg/dL 128 (H) SODIUM 136 - 145 mmol/L 139 POTASSIUM 3.5 - 5.3 mmol/L 3.6 CHLORIDE 98 - 107 mmol/L 106 Bicarbonate 21 - 32 mmol/L 22 Anion Gap 10 - 20 mmol/L 15 Blood Urea Nitrogen 6 - 23 mg/dL 46 (H) Creatinine 0.50 - 1.05 mg/dL 1.01 EGFR >60 mL/min/1.73m*2 61 Calcium 8.6 - 10.3 mg/dL 7.7 (L) Albumin 3.4 - 5.0 g/dL 3.2 (L) Alkaline Phosphatase 33 - 136 U/L 78 ALT 7 - 45 U/L 7 AST 9 - 39 U/L 10 Bilirubin Total 0.0 - 1.2 mg/dL 0.5 Bilirubin, Direct 0.0 - 0.3 mg/dL 0.1 (H): Data is abnormally high (L): Data is abnormally low Interpreted By: Dionne Britton, STUDY: CT ABDOMEN PELVIS W IV CONTRAST; ; 09/17/2023 12:38 pm INDICATION: Signs/Symptoms:abd pain, n/v. COMPARISON: 12/04/2021 ACCESSION NUMBER(S): [id number] ORDERING CLINICIAN: GLADYS ROBLES TECHNIQUE: Serial axial CT images obtained of the abdomen and pelvis following intravenous administration of 60 mL of Omnipaque 350. Images reformatted in the coronal and sagittal projection All CT examinations are performed with 1 or more of the following dose reduction techniques: Automated exposure control, adjustment of mA and/or kv according to patient's size, or use of iterative reconstruction techniques. FINDINGS: Included lung bases demonstrate basilar dependent atelectasis. No infiltrate or effusion. Distal esophagus is unremarkable. Liver is unremarkable Gallbladder is unremarkable Spleen is unremarkable Adrenal glands are unremarkable Pancreas is unremarkable. Right kidney is unremarkable. Left kidney is unremarkable. Retroperitoneum demonstrates mild vascular calcification of the abdominal aorta. Multiple surgical eusebio demonstrated within the lower anterior abdomen as well as pelvis status post lymph node dissection. No lymphadenopathy demonstrated. Stomach is unremarkable. Small bowel loops are fluid and gas-filled and dilated measuring up to 5.7 cm. This is seen to the level of the mid jejunum with transition point in the midline upper pelvis with focal loop of small bowel demonstrating peculiar appearing peculiar hyperdensity in the intraluminal location simulating intussusception. However, this is peculiar in orientation and demonstrates a C-shaped configuration within the lumen of the small bowel with this density measuring 2.3 x 2.4 cm in greatest AP and transverse dimension respectively. Correlate with ingestion of foreign body as a potential etiology. The small bowel proximal and distal to the area of presumed foreign body demonstrates mild mucosal thickening and mild perienteric fat stranding. There is no evidence for perforation. Small bowel loops distal to this area are decompressed. There is mild stool within the proximal colon. Mid to distal colon is relatively decompressed. CT pelvis: Unopacified bladder is unremarkable. There is no pelvic lymphadenopathy. No free fluid demonstrated. Visualized osseous structures demonstrate multilevel degenerative discogenic changes lower lumbar spine with moderate loss disc space height at L2/3 through L4/5 as well as L5/S1. Anterolisthesis of L5 on S1 measuring 5 mm. IMPRESSION: 1. Small-bowel obstruction with dilatation measuring up to 5.7 cm with transition point in the midline upper pelvis with intraluminal density within the mid jejunum in this area measuring 2.4 cm which has the appearance of the foreign body. The hyperdensity simulates an intussusception on sagittal images. However, in the coronal and axial plane this does not appear to represent an anatomic focus. There is mild mucosal thickening and perienteric fat stranding about the level of the obstruction. No perforation. General surgery consultation recommended. MACRO: None Signed by: Dionne Britton 09/17/2023 1:33 PM Dictation workstation: [id number] I reviewed the current CT as well as the previous CT done in 2021. He could see the similar crescentic process in 2021 but certainly she did not have the degree of small bowel distention then as she does now. That was still the transition point. Her proximal small bowel measures approximately 6 cm.There are some mucosal involvement as well as mesenteric stranding somewhat. Assessment/Plan Patient has a nonacute abdomen but a clinically significant small bowel obstruction on CT scan. I have recommended NG tube placement although I have told her she could have ice chips and popsicles. Iwill also add flushing for the NG tube. I have ordered additional labs for nutritional markers as this woman may be actually malnourished which would have to take into consideration if she did require surgical intervention. I have given her normal saline with potassium and we will recheck this tomorrow. Will also check an acute abdominal series and hopefully most of the contrast is gone and we can evaluate to see if we can see any calcifications at the point of obstruction. I would plan for Gastrografin small bowel follow-through on Tuesday and hopefully is diagnostic as well as therapeutic. Idid discuss with the patient and her the fact that if she does need a surgical interventionher abdomen will probably be quite hostile given the fact the obstruction is located near her sacral promontory where she had had the dissection as well as the radiation. They understand she could req uire a small bowel resection. All questions were answered and they are okay with plan. I spent 30 minutes in the professional and overall care of this patient. Alexus Malik MD documented in this [facility] Work Phone: 1(485) 805-507505-20-2024 Plan of care note* Care Plan - Jie Alvarado RN - 09/19/2023 7:53 AM EDT The patient's goals for the shift include rest feel better The clinical goals for the shift include Tolerate PPN x 24 hours, no s/sx of infiltration to peripheral site no falls, labs wdl, tolerate ppn [facility] Work Phone: [phone]) 253-341505-20-2024 Plan of care note* Care Plan - Kiersten Henson RN - 09/19/2023 12:44 AM EDT The patient's goals for the shift include rest The clinical goals for the shift include Tolerate PPN x 24 hours, no s/sx of infiltration to peripheral site Problem: Nutrition Goal: Less than 5 days NPO/clear liquids 09/19/202343 by Kiersten Henson RN Outcome: Progressing 09/19/202343 by Kiersten Henson RN Outcome: Progressing Goal: Oral intake greater than 50% 09/19/202343 by Kiersten Henson RN Outcome: Progressing 09/19/202343 by Kiersten Henson RN Outcome: Progressing Goal: Oral intake greater 75% 09/19/202343 by Kiersten Henson RN Outcome: Progressing 09/19/202343 by Kiersten Henson RN Outcome: Progressing Goal: Consume prescribed supplement 09/19/2023 0044 by Kiersten Henson RN Outcome: Progressing 09/19/2023 004 by Kiersten Henson RN Outcome: Progressing Goal: Adequate PO fluid intake 09/19/2023 0044 by Kiersten Henson RN Outcome: Progressing 09/19/2023 004 by Kiersten Henson RN Outcome: Progressing Goal: Nutrition support goals are met within 48 hrs 09/19/2023 004 by Kiersten Henson RN Outcome: Progressing 09/19/2023 004 by Kiersten Henson RN Outcome: Progressing Goal: Nutrition support is meeting 75% of nutrient needs 09/19/2023 004 by Kiersten Henson RN Outcome: Progressing 09/19/2023 004 by Kiersten Henson RN Outcome: Progressing Goal: Tube feed tolerance 09/19/2023 004 by Kiersten Henson RN Outcome: Progressing 09/19/2023 004 by Kiersten Henson RN Outcome: Progressing Goal: BG 80-180 mg/dL 09/19/2023 004 by Kiersten Henson RN Outcome: Progressing 09/19/2023 004 by Kiersten Henson RN Outcome: Progressing Goal: Lab values WNL 09/19/2023 004 by Kiersten Henson RN Outcome: Progressing 09/19/2023 004 by Kiersten Henson RN Outcome: Progressing Goal: Electrolytes WNL 09/19/2023 0044 by Kiersten Henson RN Outcome: Progressing 09/19/2023 004 by Kiersten Henson RN Outcome: Progressing Goal: Promote healing 09/19/2023 0044 by Kiersten Henson, RN Outcome: Progressing 09/19/2023 0044 by Kiersten Henson RN Outcome: Progressing Goal: Maintain stable weight 09/19/2023 0044 by Kiersten Henson, MAUREEN Outcome: Progressing 09/19/2023 004 by Kiersten Henson RN Outcome: Progressing Goal: Reduce weight from edema/fluid 09/19/2023 0044 by Kiersten Henson RN Outcome: Progressing 09/19/2023 004 by Kiersten Henson RN Outcome: Progressing Goal: Gradual weight gain 09/19/2023 0044 by Kiersten Henson RN Outcome: Progressing 09/19/2023 004 by Kiersten Henson RN Outcome: Progressing Goal: Improve ostomy output 09/19/202343 by Kiersten Henson RN Outcome: Progressing 09/19/202343 by Kiersten Henson RN Outcome: Progressing Problem: Psychosocial Needs Goal: Demonstrates ability to cope with hospitalization/illness 09/19/202343 by Kiersten Henson RN Outcome: Progressing 09/19/202343 by Kiersten Henson RN Outcome: Progressing Goal: Collaborate with me, my family, and caregiver to identify my specific goals 09/19/202343 by Kiersten Henson RN Outcome: Progressing 09/19/202343 by Kiersten Henson RN Outcome: Progressing [facility]05-19-2024 Note* Significant Event - Erin Coe RN - 09/18/2023 6:29 PM EDT Gave for blood sugar per order [facility] Work Phone: 1(596) 684-814405-19-2024 Plan of care note* Care Plan - Erin Coe RN - 09/18/2023 2:12 PM EDT The patient's goals for the shift include rest The clinical goals for the shift include no nausea or vomiting this shift Over the shift, the patient did make progress. [facility] Work Phone: 1(820) 404-321805-19-2024 Plan of care note* Care Plan - Kiersten Henson RN - 09/18/2023 12:20 AM EDT The patient's goals for the shift include rest The clinical goals for the shift include use call light for needs and safety Problem: Nutrition Goal: Less than 5 days NPO/clear liquids 09/18/2023 002 by Kiersten Henson RN Outcome: Progressing 09/18/2023 0019 by Kiersten Henson RN Outcome: Progressing Goal: Oral intake greater than 50% 09/18/2023 002 by Kiersten Henson RN Outcome: Progressing 09/18/202318 by Kiersten Henson RN Outcome: Progressing Goal: Oral intake greater 75% 09/18/202319 by Kiersten Henson RN Outcome: Progressing 09/18/202318 by Kiersten Henson RN Outcome: Progressing Goal: Consume prescribed supplement 09/18/202319 by Kiersten Henson RN Outcome: Progressing 09/18/202318 by Kiersten Henson RN Outcome: Progressing Goal: Adequate PO fluid intake 09/18/2023 002 by Kiersten Henson RN Outcome: Progressing 09/18/202318 by Kiersten Henson RN Outcome: Progressing Goal: Nutrition support goals are met within 48 hrs 09/18/202319 by Kiersten Henson RN Outcome: Progressing 09/18/202318 by Kiersten Henson RN Outcome: Progressing Goal: Nutrition support is meeting 75% of nutrient needs 09/18/202319 by Kiersten Henson RN Outcome: Progressing 09/18/202318 by Kiersten Henson RN Outcome: Progressing Goal: Tube feed tolerance 09/18/202319 by Kiersten Henson RN Outcome: Progressing 09/18/202318 by Kiersten Henson RN Outcome: Progressing Goal: BG 80-180 mg/dL 09/18/202319 by Kiersten Henson RN Outcome: Progressing 09/18/202318 by Kiersten Henson RN Outcome: Progressing Goal: Lab values WNL 09/18/2023 002 by Kiersten Henson, MAUREEN Outcome: Progressing 09/18/202318 by Kiersten Henson RN Outcome: Progressing Goal: Electrolytes WNL 09/18/2023 0020 by Kiersten Henson RN Outcome: Progressing 09/18/202318 by Kiersten Henson RN Outcome: Progressing Goal: Promote healing 09/18/2023 002 by Kiersten Henson RN Outcome: Progressing 09/18/202318 by Kiersten Henson RN Outcome: Progressing Goal: Maintain stable weight 09/18/202319 by Kiersten Henson RN Outcome: Progressing 09/18/202318 by Kiersten Henson RN Outcome: Progressing Goal: Reduce weight from edema/fluid 09/18/202319 by Kiersten Natividad, RN Outcome: Progressing 09/18/2023 0019 by Kiersten Henson RN Outcome: Progressing Goal: Gradual weight gain 09/18/2023 0020 by Kiersten Henson RN Outcome: Progressing 09/18/2023 0019 by Kiersten Henson RN Outcome: Progressing Goal: Improve ostomy output 09/18/2023 0020 by Keirsten Henson RN Outcome: Progressing 09/18/2023 0019 by Kiersten Hneson RN Outcome: Progressing The patient's goals for the shift include rest The clinical goals for the shift include use call light for needs and safety [facility] Work Phone: 1(200) 798-117005-18-2024 Note* Individualized Overall Plan of Care Note - Alexus Malik MD - 09/17/2023 9:17 PM EDT Patient is seen on evening rounds. NG tube is in and functioning. Other than the discomfort from the NG tube in the back of her throat she is denying any pain. She is afebrile with stable vital signs. She denies passing any flatus. I will place her back on her Pepcid as well as Prilosec and have offered her Chloraseptic spray to help with tube discomfort. Continue same plan. [facility] Work Phone: 1(763) 421-546805-18-2024 Consult note* Alexus Malik MD - 09/17/2023 3:29 PM EDT Reason For Consult Surgical evaluation of a small bowel obstruction found on CT scan History Of Present Illness Kamila Patel is a 67 y.o. female presenting with vomiting and a crescendo pattern over the lastfew months. 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 She resolved withconservative management. She states over the last number of months she had recurrent episodes of vomiting that started out once a month and became more and more frequent. She is now vomiting daily. She has no real abdominal pain. She has lost 10 pounds over the past couple of months. She is quite thin and appears to have some facial muscle wasting. She is seen with her and is very pleasant.. Past Medical History She has a past medical history of Encounter for full-term uncomplicated delivery ([facility]), Encounter for gynecological examination (general) (routine) without abnormal findings (09/16/2021), GERD (gastroesophageal reflux disease), Hypertension, Personal history of malignant neoplasm of other partsof uterus, and Personal history of other medical treatment. Hypertension is controlled on her current medication Surgical History She has a past surgical history that includes Colonoscopy (02/25/2012); Tubal ligation (08/03/1989); Hysterectomy (08/2011); Carpal tunnel release; Tonsillectomy; and Esophagogastroduodenoscopy (2016). Patient had a EGD and colonoscopy in May of this year and was treated for H. pylori. Colonoscopy was a poor prep but no lesions were found. In 2011 she was found to have cervical as well as endometrial cancer and underwent a CELESTE with BSO as well as retroperitoneal lymph node dissection. Clipsare seen on the CT Social History She reports that she has never smoked. She has never used smokeless tobacco. She reports that she does not drink alcohol and does not use drugs. Family History Family History Problem Relation Name Age of Onset Heart attack Mother Coronary artery disease Mother Hypertension Father Leukemia Father Diabetes Sister Heart attack Brother Allergies Patient has no known allergies. Review of Systems Patient denies any strokelike symptoms. She denies any chest pain or shortness of breath. She states she has a bloated feeling in her abdomen but denies any pain per se. She had a small bowel movement this morning. Physical Exam Awake alert conversant Respirations nonlabored Regular rate Abdomen is soft and she is not grossly distended but someone who appears his somewhat cachectic if she does I would think this does represent abdominal distention. She has discomfort but no true painor peritoneal signs. Extremities no edema and she is moving all extremities. Last Recorded Vitals Blood pressure (!) 160/92, pulse 100, temperature 36.7 C (98.1 F), temperature source Temporal, resp. rate 18, height 1.575 m (5' 2), weight (!) 41.7 kg (92 lb), SpO2 96%. Relevant Results Latest Reference Range & Units 09/17/23 11:21 GLUCOSE 74 - 99 mg/dL 128 (H) SODIUM 136 - 145 mmol/L 139 POTASSIUM 3.5 - 5.3 mmol/L 3.6 CHLORIDE 98 - 107 mmol/L 106 Bicarbonate 21 - 32 mmol/L 22 Anion Gap 10 - 20 mmol/L 15 Blood Urea Nitrogen 6 - 23 mg/dL 46 (H) Creatinine 0.50 - 1.05 mg/dL 1.01 EGFR >60 mL/min/1.73m*2 61 Calcium 8.6 - 10.3 mg/dL 7.7 (L) Albumin 3.4 - 5.0 g/dL 3.2 (L) Alkaline Phosphatase 33 - 136 U/L 78 ALT 7 - 45 U/L 7 AST 9 - 39 U/L 10 Bilirubin Total 0.0 - 1.2 mg/dL 0.5 Bilirubin, Direct 0.0 - 0.3 mg/dL 0.1 (H): Data is abnormally high (L): Data is abnormally low Interpreted By: Dionne Britton, STUDY: CT ABDOMEN PELVIS W IV CONTRAST; ; 09/17/2023 12:38 pm INDICATION: Signs/Symptoms:abd pain, n/v. COMPARISON: 12/04/2021 ACCESSION NUMBER(S): [id number] ORDERING CLINICIAN: GLADYS ROBLES TECHNIQUE: Serial axial CT images obtained of the abdomen and pelvis following intravenous administration of 60 mL of Omnipaque 350. Images reformatted in the coronal and sagittal projection All CT examinations are performed with 1 or more of the following dose reduction techniques: Automated exposure control, adjustment of mA and/or kv according to patient's size, or use of iterative reconstruction techniques. FINDINGS: Included lung bases demonstrate basilar dependent atelectasis. No infiltrate or effusion. Distal esophagus is unremarkable. Liver is unremarkable Gallbladder is unremarkable Spleen is unremarkable Adrenal glands are unremarkable Pancreas is unremarkable. Right kidney is unremarkable. Left kidney is unremarkable. Retroperitoneum demonstrates mild vascular calcification of the abdominal aorta. Multiple surgical eusebio demonstrated within the lower anterior abdomen as well as pelvis status post lymph node dissection. No lymphadenopathy demonstrated. Stomach is unremarkable. Small bowel loops are fluid and gas-filled and dilated measuring up to 5.7 cm. This is seen to the level of the mid jejunum with transition point in the midline upper pelvis with focal loop of small bowel demonstrating peculiar appearing peculiar hyperdensity in the intraluminal location simulating intussusception. However, this is peculiar in orientation and demonstrates a C-shaped configuration within the lumen of the small bowel with this density measuring 2.3 x 2.4 cm in greatest AP and transverse dimension respectively. Correlate with ingestion of foreign body as a potential etiology. The small bowel proximal and distal to the area of presumed foreign body demonstrates mild mucosal thickening and mild perienteric fat stranding. There is no evidence for perforation. Small bowel loops distal to this area are decompressed. There is mild stool within the proximal colon. Mid to distal colon is relatively decompressed. CT pelvis: Unopacified bladder is unremarkable. There is no pelvic lymphadenopathy. No free fluid demonstrated. Visualized osseous structures demonstrate multilevel degenerative discogenic changes lower lumbar spine with moderate loss disc space height at L2/3 through L4/5 as well as L5/S1. Anterolisthesis of L5 on S1 measuring 5 mm. IMPRESSION: 1. Small-bowel obstruction with dilatation measuring up to 5.7 cm with transition point in the midline upper pelvis with intraluminal density within the mid jejunum in this area measuring 2.4 cm which has the appearance of the foreign body. The hyperdensity simulates an intussusception on sagittal images. However, in the coronal and axial plane this does not appear to represent an anatomic focus. There is mild mucosal thickening and perienteric fat stranding about the level of the obstruction. No perforation. General surgery consultation recommended. MACRO: None Signed by: Dionne Britton 09/17/2023 1:33 PM Dictation workstation: [id number] I reviewed the current CT as well as the previous CT done in 2021. He could see the similar crescentic process in 2021 but certainly she did not have the degree of small bowel distention then as she does now. That was still the transition point. Her proximal small bowel measures approximately 6 cm.There are some mucosal involvement as well as mesenteric stranding somewhat. Assessment/Plan Patient has a nonacute abdomen but a clinically significant small bowel obstruction on CT scan. I have recommended NG tube placement although I have told her she could have ice chips and popsicles. Iwill also add flushing for the NG tube. I have ordered additional labs for nutritional markers as this woman may be actually malnourished which would have to take into consideration if she did require surgical intervention. I have given her normal saline with potassium and we will recheck this tomorrow. Will also check an acute abdominal series and hopefully most of the contrast is gone and we can evaluate to see if we can see any calcifications at the point of obstruction. I would plan for Gastrografin small bowel follow-through on Tuesday and hopefully is diagnostic as well as therapeutic. Idid discuss with the patient and her the fact that if she does need a surgical interventionher abdomen will probably be quite hostile given the fact the obstruction is located near her sacral promontory where she had had the dissection as well as the radiation. They understand she could req uire a small bowel resection. All questions were answered and they are okay with plan. I spent 30 minutes in the professional and overall care of this patient. Alexus Malik MD [facility] Work Phone: [phone]) 458-956105-18-2024 History and physical note* Tello Moore MD - 09/17/2023 2:21 PM EDT History Of Present Illness Kamila Patel is a 67 y.o. female presenting with N/V for 4-5 days Prior history of CA cervix/endometrial S/p radiotherapy and TBO hysterectomy Prior hx of SBO x 2 years ago Managed conservatively. Now presenting with constipation, abdominal distension, nausea and vomiting billious material Along with decreased oral intake for a few days Last 2-3 days only has been taking ice chips Cannot even keep the fluids in Denies any worsening abdominal pain, dizziness, lightheadedness, shortness of breath No bleeding DC Previously has history of chronic nausea, diet is limited, Was treated for h pylori On several acid suppression meds HTN on lisinopril And PPI for GERD/Gastritis No concerning social habits Hospital course Received IV fluids, anti emetics CT scan shows Small-bowel obstruction with dilatation measuring up to 5.7 cm with transition point in the midline upper pelvis with intraluminal density within the mid jejunum in this area measuring 2.4 cm which has the appearance of the foreign body. The hyperdensity simulates an intussusception on sagittal images. However, in the coronal and axial plane this does not appear to represent an anatomic focus. There is mild mucosal thickening and perienteric fat stranding about the level of the obstruction. No perforation. General surgery consultation recommended. Gen surgery has been consulted by ED Current Outpatient Medications Medication Instructions biotin 10 mg tablet 1 tablet, oral, Daily calcium citrate (Calcitrate) 200 mg (950 mg) tablet 1 tablet, oral, Daily famotidine (PEPCID) 20 mg, oral, 2 times daily Lactobacillus acidophilus (Probiotic Acidophilus) 250 million cell capsule 1 1e11 Vector Genomes, oral, Daily lisinopril 10 mg, oral, Daily multivit-min/ferrous fumarate (MULTI VITAMIN ORAL) 1 tablet, oral, Daily omeprazole (PRILOSEC) 40 mg, oral, Daily promethazine (PHENERGAN) 50 mg, oral, 4 times daily PRN sucralfate (CARAFATE) 1 g, oral, 4 times daily PRN Past Medical History Past Medical History: Diagnosis Date Encounter for full-term uncomplicated delivery ([facility]) NVD (normal vaginal delivery) Encounter for gynecological examination (general) (routine) without abnormal findings 09/16/2021 Pap test, as part of routine gynecological examination GERD (gastroesophageal reflux disease) Hypertension Personal history of malignant neoplasm of other parts of uterus History of uterine cancer Personal history of other medical treatment H/O mammogram Surgical History Past Surgical History: Procedure Laterality Date CARPAL TUNNEL RELEASE COLONOSCOPY 02/25/2012 DR. CASILLAS-REPEAT IN 10 YEARS; NORMAL ESOPHAGOGASTRODUODENOSCOPY 2017 HYSTERECTOMY 08/2011 TONSILLECTOMY TUBAL LIGATION 08/03/1989 Social History She reports that she has never smoked. She has never used smokeless tobacco. She reports that she does not drink alcohol and does not use drugs. Family History Family History Problem Relation Name Age of Onset Heart attack Mother Coronary artery disease Mother Hypertension Father Leukemia Father Diabetes Sister Heart attack Brother Allergies Patient has no known allergies. Review of Systems Physical Exam Physical Exam General: Cooperative, in NAD Eyes: Conjunctiva clear, sclera white, anicteric Nose: No external deformity, no mucosal crusting or signs of bleeding Throat/Mouth: Moist mucous membranes, normal dentition, no ulcers or lesions Lungs: No respiratory distress; lungs CTAB; no wheezes, rales, rhonchi, or stridor Heart: Normal S1 and S2; regular rate and rhythm; no murmurs, rubs, or gallops Abd - sluggish bowel sounds, minimal distension No tenderness Last Recorded Vitals Blood pressure 138/84, pulse 99, temperature 36.7 C (98.1 F), temperature source Temporal, resp. rate 18, height 1.575 m (5' 2), weight (!) 41.7 kg (92 lb), SpO2 97%. Relevant Results Lab Results Component Value Date WBC 8.7 09/17/2023 HGB 14.0 09/17/2023 HCT 41.3 09/17/2023 MCV 91 09/17/2023 PLT 329 09/17/2023 Lab Results Component Value Date GLUCOSE 128 (H) 09/17/2023 CALCIUM 7.7 (L) 09/17/2023 NA 139 09/17/2023 K 3.6 09/17/2023 CO2 22 09/17/2023 CL 106 09/17/2023 BUN 46 (H) 09/17/2023 CREATININE 1.01 09/17/2023 Assessment/Plan Principal Problem: Small bowel obstruction (Multi) Admit to inpatient # Small bowel obstruction 2/2 Prior surgery/radiotherapy Likely adhesions related Currently, obstruction looks subacute Will keep on maintenance fluids BMP daily Gen surgery opinion Daily Xrays NGT as per gen surgery; currently abdomen soft and minimally distended and patient not actively vomiting. # HTN On lisinopril NPO for now Monitor BP Hydralazine PRN if needed # GERD On PPI LOS 2-3 days DVT prophylaxis yes Code status - DNR discussed with patient Has a living will I spent /45 minutes in the professional and overall care of this patient. Tello Moore MD [facility] Work Phone: 1([phone]) [phone] History and physical note* Tello Moore MD - 09/17/2023 2:21 PM EDT History Of Present Illness Kamila Patel is a 67 y.o. female presenting with N/V for 4-5 days Prior history of CA cervix/endometrial S/p radiotherapy and TBO hysterectomy Prior hx of SBO x 2 years ago Managed conservatively. Now presenting with constipation, abdominal distension, nausea and vomiting billious material Along with decreased oral intake for a few days Last 2-3 days only has been taking ice chips Cannot even keep the fluids in Denies any worsening abdominal pain, dizziness, lightheadedness, shortness of breath No bleeding DC Previously has history of chronic nausea, diet is limited, Was treated for h pylori On several acid suppression meds HTN on lisinopril And PPI for GERD/Gastritis No concerning social habits Hospital course Received IV fluids, anti emetics CT scan shows Small-bowel obstruction with dilatation measuring up to 5.7 cm with transition point in the midline upper pelvis with intraluminal density within the mid jejunum in this area measuring 2.4 cm which has the appearance of the foreign body. The hyperdensity simulates an intussusception on sagittal images. However, in the coronal and axial plane this does not appear to represent an anatomic focus. There is mild mucosal thickening and perienteric fat stranding about the level of the obstruction. No perforation. General surgery consultation recommended. Gen surgery has been consulted by ED Current Outpatient Medications Medication Instructions biotin 10 mg tablet 1 tablet, oral, Daily calcium citrate (Calcitrate) 200 mg (950 mg) tablet 1 tablet, oral, Daily famotidine (PEPCID) 20 mg, oral, 2 times daily Lactobacillus acidophilus (Probiotic Acidophilus) 250 million cell capsule 1 1e11 Vector Genomes, oral, Daily lisinopril 10 mg, oral, Daily multivit-min/ferrous fumarate (MULTI VITAMIN ORAL) 1 tablet, oral, Daily omeprazole (PRILOSEC) 40 mg, oral, Daily promethazine (PHENERGAN) 50 mg, oral, 4 times daily PRN sucralfate (CARAFATE) 1 g, oral, 4 times daily PRN Past Medical History Past Medical History: Diagnosis Date Encounter for full-term uncomplicated delivery ([facility]) NVD (normal vaginal delivery) Encounter for gynecological examination (general) (routine) without abnormal findings 09/16/2021 Pap test, as part of routine gynecological examination GERD (gastroesophageal reflux disease) Hypertension Personal history of malignant neoplasm of other parts of uterus History of uterine cancer Personal history of other medical treatment H/O mammogram Surgical History Past Surgical History: Procedure Laterality Date CARPAL TUNNEL RELEASE COLONOSCOPY 02/25/2012 DR. CASILLAS-REPEAT IN 10 YEARS; NORMAL ESOPHAGOGASTRODUODENOSCOPY 2017 HYSTERECTOMY 08/2011 TONSILLECTOMY TUBAL LIGATION 08/03/1989 Social History She reports that she has never smoked. She has never used smokeless tobacco. She reports that she does not drink alcohol and does not use drugs. Family History Family History Problem Relation Name Age of Onset Heart attack Mother Coronary artery disease Mother Hypertension Father Leukemia Father Diabetes Sister Heart attack Brother Allergies Patient has no known allergies. Review of Systems Physical Exam Physical Exam General: Cooperative, in NAD Eyes: Conjunctiva clear, sclera white, anicteric Nose: No external deformity, no mucosal crusting or signs of bleeding Throat/Mouth: Moist mucous membranes, normal dentition, no ulcers or lesions Lungs: No respiratory distress; lungs CTAB; no wheezes, rales, rhonchi, or stridor Heart: Normal S1 and S2; regular rate and rhythm; no murmurs, rubs, or gallops Abd - sluggish bowel sounds, minimal distension No tenderness Last Recorded Vitals Blood pressure 138/84, pulse 99, temperature 36.7 C (98.1 F), temperature source Temporal, resp. rate 18, height 1.575 m (5' 2), weight (!) 41.7 kg (92 lb), SpO2 97%. Relevant Results Lab Results Component Value Date WBC 8.7 09/17/2023 HGB 14.0 09/17/2023 HCT 41.3 09/17/2023 MCV 91 09/17/2023 PLT 329 09/17/2023 Lab Results Component Value Date GLUCOSE 128 (H) 09/17/2023 CALCIUM 7.7 (L) 09/17/2023 NA 139 09/17/2023 K 3.6 09/17/2023 CO2 22 09/17/2023 CL 106 09/17/2023 BUN 46 (H) 09/17/2023 CREATININE 1.01 09/17/2023 Assessment/Plan Principal Problem: Small bowel obstruction (Multi) Admit to inpatient # Small bowel obstruction 2/2 Prior surgery/radiotherapy Likely adhesions related Currently, obstruction looks subacute Will keep on maintenance fluids BMP daily Gen surgery opinion Daily Xrays NGT as per gen surgery; currently abdomen soft and minimally distended and patient not actively vomiting. # HTN On lisinopril NPO for now Monitor BP Hydralazine PRN if needed # GERD On PPI LOS 2-3 days DVT prophylaxis yes Code status - DNR discussed with patient Has a living will I spent /45 minutes in the professional and overall care of this patient. Tello Moore MD documented in this [facility] Work Phone: [phone]) [phone] Emergency department Note* Gladys Robles PA-C - 09/17/2023 10:03 AM EDT Patient is a 67-year-old female presents to the emergency room with a chief complaint of generalized abdominal pain for the past 4 days. She states that she has had bowel issues for the past 2 years.She states that she originally had a CT scan performed 2 years ago and had recently had a colonoscopy and EGD. She states that 4 days ago she developed nausea, vomiting, abdominal bloating and difficulty with urination. She did have a very small bowel movement this morning. She denies any fever or chills. She states that she feels as if she may be dehydrated and needs fluids. Review of Systems Constitutional: Negative for chills and fever. HENT: Negative for ear pain and sore throat. Eyes: Negative for pain and visual disturbance. Respiratory: Negative for cough and shortness of breath. Cardiovascular: Negative for chest pain and palpitations. Gastrointestinal: Positive for abdominal pain, nausea and vomiting. Genitourinary: Positive for difficulty urinating. Negative for dysuria and hematuria. Musculoskeletal: Negative for arthralgias and back pain. Skin: Negative for color change and rash. Neurological: Negative for seizures and syncope. All other systems reviewed and are negative. Physical Exam Vitals and nursing note reviewed. Constitutional: General: She is not in acute distress. Appearance: She is well-developed. HENT: Head: Normocephalic and atraumatic. Eyes: Conjunctiva/sclera: Conjunctivae normal. Pupils: Pupils are equal, round, and reactive to light. Cardiovascular: Rate and Rhythm: Normal rate and regular rhythm. Heart sounds: No murmur heard. Pulmonary: Effort: Pulmonary effort is normal. No respiratory distress. Breath sounds: Normal breath sounds. Abdominal: Palpations: Abdomen is soft. Tenderness: There is generalized abdominal tenderness. Musculoskeletal: General: No swelling. Cervical back: Neck supple. Skin: General: Skin is warm and dry. Capillary Refill: Capillary refill takes less than 2 seconds. Neurological: Mental Status: She is alert. Psychiatric: Mood and Affect: Mood normal. Labs Reviewed COMPREHENSIVE METABOLIC PANEL - Abnormal Result Value Glucose 128 (*) Sodium 139 Potassium 3.6 Chloride 106 Bicarbonate 22 Anion Gap 15 Urea Nitrogen 46 (*) Creatinine 1.01 eGFR 61 Calcium 7.7 (*) Albumin 3.2 (*) Alkaline Phosphatase 78 Total Protein 5.5 (*) AST 10 Bilirubin, Total 0.5 ALT 7 URINALYSIS WITH REFLEX CULTURE AND MICROSCOPIC - Abnormal Color, Urine Yellow Appearance, Urine Clear Specific [place], Urine 1.010 pH, Urine 5.0 Protein, Urine NEGATIVE Glucose, Urine NEGATIVE Blood, Urine NEGATIVE Ketones, Urine 80 (2+) (*) Bilirubin, Urine NEGATIVE Urobilinogen, Urine <2.0 Nitrite, Urine NEGATIVE Leukocyte Esterase, Urine NEGATIVE BASIC METABOLIC PANEL - Abnormal Glucose 99 Sodium 136 Potassium 3.9 Chloride 105 Bicarbonate 19 (*) Anion Gap 16 Urea Nitrogen 39 (*) Creatinine 0.83 eGFR 77 Calcium 8.3 (*) CBC - Abnormal WBC 8.1 nRBC 0.0 RBC 3.98 (*) Hemoglobin 12.3 Hematocrit 39.3 MCV 99 MCH 30.9 MCHC 31.3 (*) RDW 12.9 Platelets 274 BASIC METABOLIC PANEL - Abnormal Glucose 70 (*) Sodium 142 Potassium 4.2 Chloride 112 (*) Bicarbonate 19 (*) Anion Gap 15 Urea Nitrogen 35 (*) Creatinine 0.72 eGFR >90 Calcium 8.0 (*) COMPREHENSIVE METABOLIC PANEL - Abnormal Glucose 82 Sodium 142 Potassium 4.2 Chloride 113 (*) Bicarbonate 17 (*) Anion Gap 16 Urea Nitrogen 30 (*) Creatinine 0.67 eGFR >90 Calcium 8.3 (*) Albumin 3.4 Alkaline Phosphatase 82 Total Protein 5.7 (*) AST 13 Bilirubin, Total 0.5 ALT 8 PHOSPHORUS - Abnormal Phosphorus 2.4 (*) COMPREHENSIVE METABOLIC PANEL - Abnormal Glucose 192 (*) Sodium 136 Potassium 4.0 Chloride 109 (*) Bicarbonate 21 Anion Gap 10 Urea Nitrogen 28 (*) Creatinine 0.49 (*) eGFR >90 Calcium 8.5 (*) Albumin 3.3 (*) Alkaline Phosphatase 70 Total Protein 5.7 (*) AST 11 Bilirubin, Total 0.4 ALT 7 POCT GLUCOSE - Abnormal POCT Glucose 72 (*) POCT GLUCOSE - Abnormal POCT Glucose 67 (*) POCT GLUCOSE - Abnormal POCT Glucose 71 (*) POCT GLUCOSE - Abnormal POCT Glucose 182 (*) POCT GLUCOSE - Abnormal POCT Glucose 172 (*) POCT GLUCOSE - Abnormal POCT Glucose 153 (*) POCT GLUCOSE - Abnormal POCT Glucose 136 (*) POCT GLUCOSE - Abnormal POCT Glucose 180 (*) LIPASE - Normal Lipase 21 Narrative: Venipuncture immediately after or during the administration of Metamizole may lead to falsely low results. Testing should be performed immediately prior to Metamizole dosing. LACTATE - Normal Lactate 1.6 Narrative: Venipuncture immediately after or during the administration of Metamizole may lead to falsely low results. Testing should be performed immediately prior to Metamizole dosing. BILIRUBIN, DIRECT - Normal Bilirubin, Direct 0.1 C-REACTIVE PROTEIN - Normal C-Reactive Protein 0.55 CBC - Normal WBC 8.7 nRBC 0.0 RBC 4.24 Hemoglobin 13.2 Hematocrit 39.9 MCV 94 MCH 31.1 MCHC 33.1 RDW 12.9 Platelets 320 PREALBUMIN - Normal Prealbumin 20.3 MAGNESIUM - Normal Magnesium 2.15 PHOSPHORUS - Normal Phosphorus 3.1 TRIGLYCERIDES - Normal Triglycerides 119 PHOSPHORUS - Normal Phosphorus 2.9 MAGNESIUM - Normal Magnesium 2.00 MAGNESIUM - Normal Magnesium 2.09 POTASSIUM - Normal Potassium 3.9 POCT GLUCOSE - Normal POCT Glucose 81 POCT GLUCOSE - Normal POCT Glucose 79 CBC WITH AUTO DIFFERENTIAL WBC 8.7 nRBC 0.0 RBC 4.53 Hemoglobin 14.0 Hematocrit 41.3 MCV 91 MCH 30.9 MCHC 33.9 RDW 12.8 Platelets 329 Neutrophils % 67.3 Immature Granulocytes %, Automated 0.5 Lymphocytes % 22.4 Monocytes % 9.3 Eosinophils % 0.2 Basophils % 0.3 Neutrophils Absolute 5.84 Immature Granulocytes Absolute, Automated 0.04 Lymphocytes Absolute 1.95 Monocytes Absolute 0.81 Eosinophils Absolute 0.02 Basophils Absolute 0.03 URINALYSIS WITH REFLEX CULTURE AND MICROSCOPIC Narrative: The following orders were created for panel order Urinalysis with Reflex Culture and Microscopic. Procedure Abnormality Status --------- ------ Urinalysis with Reflex C...[[id number]] Abnormal Final result Extra Urine Coles Tube[[id number]] Final result Please view results for these tests on the individual orders. EXTRA URINE COLES TUBE Extra Tube Hold for add-ons. HEMOGLOBIN A1C Hemoglobin A1C 5.6 Estimated Average Glucose 114 Narrative: Diagnosis of Diabetes-Adults Non-Diabetic: < or = 5.6% Increased risk for developing diabetes: 5.7-6.4% Diagnostic of diabetes: > or = 6.5% Monitoring of Diabetes Age (y)....................... Therapeutic Goal (%) Adults: >18.........................<7.0 Pediatrics: 13-18...................<7.5 Pediatrics: 7-12....................<8.0 Pediatrics: 0-6..................... 7.5-8.5 [place]. Diabetes Care 33(S1), May 2009 TYPE AND SCREEN ABO TYPE O Rh TYPE NEG ANTIBODY SCREEN NEG GREEN TOP Extra Tube Hold for add-ons. PHOSPHORUS COMPREHENSIVE METABOLIC PANEL MAGNESIUM POCT GLUCOSE POCT GLUCOSE POCT GLUCOSE POCT GLUCOSE POCT GLUCOSE POCT GLUCOSE POCT GLUCOSE POCT GLUCOSE METER FL small bowel series Final Result 1. High-grade small bowel obstruction. The findings were reviewed with Dr. Posey. MACRO: None Signed by: Roberto Sellers 09/19/2023 4:17 PM Dictation workstation: [id number] XR abdomen 3+ views Final Result NG/OG tube side hole is just beyond the GE junction. Advancement by 3-4 cm is recommended. Redemonstration of dilated small bowel loops in keeping with a bowel obstruction, evaluation limited due to predominantly fluid-filled nature of the small bowel loops. MACRO: None Signed by: Jake Sahni 09/18/2023 6:28 AM Dictation workstation: [id number] XR abdomen 1 view Final Result 1. Enteric tube as above. 2. Findings compatible with a degree of small-bowel obstruction. Please see the CT from the same date for further discussion. Signed by: Partha Ledesma 09/17/2023 4:10 PM Dictation workstation: [id number] CT abdomen pelvis w IV contrast Final Result 1. Small-bowel obstruction with dilatation measuring up to 5.7 cm with transition point in the midline upper pelvis with intraluminal density within the mid jejunum in this area measuring 2.4 cm which has the appearance of the foreign body. The hyperdensity simulates an intussusception on sagittal images. However, in the coronal and axial plane this does not appear to represent an anatomic focus. There is mild mucosal thickening and perienteric fat stranding about the level of the obstruction. No perforation. General surgery consultation recommended. MACRO: None Signed by: Dionne Britton 09/17/2023 1:33 PM Dictation workstation: [id number] Procedures Medical Decision Making Patient has had intermittent abdominal issues over the past 2 years, recently had an EGD and colonoscopy in May. Patient states that she was having an episode of vomiting every 3 to 4 weeks and most recently she has been vomiting every week. She states that over the past 4 days she has had severe nausea and vomiting and has been able to keep very little down. She did have a bowel movement this morning which she states was nearly normal. CT scan is showing a small bowel obstruction measuringup to 5.7 cm with a transition point, concern for the appearance of a foreign body which patient denies any potential ingestion. There is also a suspicion on one of the CT views of an intussusception. Patient is currently nauseous. She is denying any pain and her repeat abdominal exam is benign. Consulted with general surgery, Dr. Malik who recommends admission to the hospitalist. NG tube hasbeen ordered per recommendation. Patient was seen and evaluated by myself and attending physician, Dr. Vaughn Differential diagnosis includes but not limited to colitis, appendicitis, cholecystitis, pancreatitis, urinary tract infection The patient was seen by the advanced practice provider. I have personally performed a substantive portion of the encounter. I have seen and examined the patient; agree with the workup, evaluation, MDM, management and diagnosis. The care plan has been discussed. I personally saw the patient and made/approved the management plan and take responsibility for the patient's management. History: Abdominal pain. This 67-year-old white female presents to the ED with 4-day history of generalized abdominal pain patient states that she has had bowel issues for the past 2 years. Patient admits to having a CT scan performed 2 years ago and recently had a colonoscopy and EGD. She states that 4 days ago she developed nausea, vomiting abdominal bloating and difficulty with urination. She states that she had a very small bowel movement this morning. She denies any fevers or chills and states that she feels as though she may be dehydrated and needs fluids. Patient states that she was only able to urinate a very small amount today prior to coming to the ED. Exam: Patient is alert awake oriented appears to be no obvious distress nontoxic cooperative and pleasant. ENT examination unremarkable neck is supple without meningismus. Heart tachycardic rate without murmur. Lungs are clear to auscultation bilaterally respirations are easy and symmetric without retractions or tachypnea. Abdomen is protuberant soft with diffuse tenderness there is no rebound rigidity guarding or CVA tenderness no examination. Distally cap refill less than 2 seconds. No focal neurologic deficits are appreciated. MDM: Patient was worked up for her abdominal pain symptoms and was ordered blood work as well as a CT scan of the abdomen pelvis. CMP revealed BUN to be elevated 46. Glucose is 128. Calcium was 7.7 albumin was 3.2. Protein was 5.5. Lipase was normal at 21. Lactic acid was normal at 1.6. Bilirubin was 0.1 white cell count was normal 8.7. Hemoglobin 14.0. Hematocrit 41.3. Platelets were normal at 329. CT scan of the abdomen pelvis with IV contrast revealed a small bowel obstruction with dilatation measuring up to 5.7 cm and transition point in the midline upper pelvis with a intraluminal density within the mid jejunum in this area measuring up to 2.4 cm which has appearance of foreign body ofthe hyperdensity simulates an intussusception on sagittal images however in the coronal and axial plane this is. To represent an anatomical focus. There is mild mucosal thickening in perienteric fat stranding about the level of the obstruction no perforation. After getting the CT scan results we did have a discussion with the patient and patient's family concerning the findings on CAT scan and plan of care General surgery was consulted and Dr. Benito came down to see the patient and subsequently patient was admitted to the hospital after an NG tube was placed. Partha Vaughn, DO Amount and/or Complexity of Data Reviewed Labs: ordered. Decision-making details documented in ED Course. Radiology: ordered. Decision-making details documented in ED Course. Risk Decision regarding hospitalization. Diagnoses as of 09/20/23250 Small bowel obstruction (Multi) Nausea and vomiting, unspecified vomiting type Gladys Robles PA-C 09/17/23 1414 Partha Vaughn DO 09/20/23 0251 documented in this [facility] Work Phone: [phone] Physician Emergency department Note* Gladys Robles PA-C - 09/17/2023 10:03 AM EDT Patient is a 67-year-old female presents to the emergency room with a chief complaint of generalized abdominal pain for the past 4 days. She states that she has had bowel issues for the past 2 years.She states that she originally had a CT scan performed 2 years ago and had recently had a colonoscopy and EGD. She states that 4 days ago she developed nausea, vomiting, abdominal bloating and difficulty with urination. She did have a very small bowel movement this morning. She denies any fever or chills. She states that she feels as if she may be dehydrated and needs fluids. Review of Systems Constitutional: Negative for chills and fever. HENT: Negative for ear pain and sore throat. Eyes: Negative for pain and visual disturbance. Respiratory: Negative for cough and shortness of breath. Cardiovascular: Negative for chest pain and palpitations. Gastrointestinal: Positive for abdominal pain, nausea and vomiting. Genitourinary: Positive for difficulty urinating. Negative for dysuria and hematuria. Musculoskeletal: Negative for arthralgias and back pain. Skin: Negative for color change and rash. Neurological: Negative for seizures and syncope. All other systems reviewed and are negative. Physical Exam Vitals and nursing note reviewed. Constitutional: General: She is not in acute distress. Appearance: She is well-developed. HENT: Head: Normocephalic and atraumatic. Eyes: Conjunctiva/sclera: Conjunctivae normal. Pupils: Pupils are equal, round, and reactive to light. Cardiovascular: Rate and Rhythm: Normal rate and regular rhythm. Heart sounds: No murmur heard. Pulmonary: Effort: Pulmonary effort is normal. No respiratory distress. Breath sounds: Normal breath sounds. Abdominal: Palpations: Abdomen is soft. Tenderness: There is generalized abdominal tenderness. Musculoskeletal: General: No swelling. Cervical back: Neck supple. Skin: General: Skin is warm and dry. Capillary Refill: Capillary refill takes less than 2 seconds. Neurological: Mental Status: She is alert. Psychiatric: Mood and Affect: Mood normal. Labs Reviewed COMPREHENSIVE METABOLIC PANEL - Abnormal Result Value Glucose 128 (*) Sodium 139 Potassium 3.6 Chloride 106 Bicarbonate 22 Anion Gap 15 Urea Nitrogen 46 (*) Creatinine 1.01 eGFR 61 Calcium 7.7 (*) Albumin 3.2 (*) Alkaline Phosphatase 78 Total Protein 5.5 (*) AST 10 Bilirubin, Total 0.5 ALT 7 URINALYSIS WITH REFLEX CULTURE AND MICROSCOPIC - Abnormal Color, Urine Yellow Appearance, Urine Clear Specific [place], Urine 1.010 pH, Urine 5.0 Protein, Urine NEGATIVE Glucose, Urine NEGATIVE Blood, Urine NEGATIVE Ketones, Urine 80 (2+) (*) Bilirubin, Urine NEGATIVE Urobilinogen, Urine <2.0 Nitrite, Urine NEGATIVE Leukocyte Esterase, Urine NEGATIVE BASIC METABOLIC PANEL - Abnormal Glucose 99 Sodium 136 Potassium 3.9 Chloride 105 Bicarbonate 19 (*) Anion Gap 16 Urea Nitrogen 39 (*) Creatinine 0.83 eGFR 77 Calcium 8.3 (*) CBC - Abnormal WBC 8.1 nRBC 0.0 RBC 3.98 (*) Hemoglobin 12.3 Hematocrit 39.3 MCV 99 MCH 30.9 MCHC 31.3 (*) RDW 12.9 Platelets 274 BASIC METABOLIC PANEL - Abnormal Glucose 70 (*) Sodium 142 Potassium 4.2 Chloride 112 (*) Bicarbonate 19 (*) Anion Gap 15 Urea Nitrogen 35 (*) Creatinine 0.72 eGFR >90 Calcium 8.0 (*) COMPREHENSIVE METABOLIC PANEL - Abnormal Glucose 82 Sodium 142 Potassium 4.2 Chloride 113 (*) Bicarbonate 17 (*) Anion Gap 16 Urea Nitrogen 30 (*) Creatinine 0.67 eGFR >90 Calcium 8.3 (*) Albumin 3.4 Alkaline Phosphatase 82 Total Protein 5.7 (*) AST 13 Bilirubin, Total 0.5 ALT 8 PHOSPHORUS - Abnormal Phosphorus 2.4 (*) COMPREHENSIVE METABOLIC PANEL - Abnormal Glucose 192 (*) Sodium 136 Potassium 4.0 Chloride 109 (*) Bicarbonate 21 Anion Gap 10 Urea Nitrogen 28 (*) Creatinine 0.49 (*) eGFR >90 Calcium 8.5 (*) Albumin 3.3 (*) Alkaline Phosphatase 70 Total Protein 5.7 (*) AST 11 Bilirubin, Total 0.4 ALT 7 POCT GLUCOSE - Abnormal POCT Glucose 72 (*) POCT GLUCOSE - Abnormal POCT Glucose 67 (*) POCT GLUCOSE - Abnormal POCT Glucose 71 (*) POCT GLUCOSE - Abnormal POCT Glucose 182 (*) POCT GLUCOSE - Abnormal POCT Glucose 172 (*) POCT GLUCOSE - Abnormal POCT Glucose 153 (*) POCT GLUCOSE - Abnormal POCT Glucose 136 (*) POCT GLUCOSE - Abnormal POCT Glucose 180 (*) LIPASE - Normal Lipase 21 Narrative: Venipuncture immediately after or during the administration of Metamizole may lead to falsely low results. Testing should be performed immediately prior to Metamizole dosing. LACTATE - Normal Lactate 1.6 Narrative: Venipuncture immediately after or during the administration of Metamizole may lead to falsely low results. Testing should be performed immediately prior to Metamizole dosing. BILIRUBIN, DIRECT - Normal Bilirubin, Direct 0.1 C-REACTIVE PROTEIN - Normal C-Reactive Protein 0.55 CBC - Normal WBC 8.7 nRBC 0.0 RBC 4.24 Hemoglobin 13.2 Hematocrit 39.9 MCV 94 MCH 31.1 MCHC 33.1 RDW 12.9 Platelets 320 PREALBUMIN - Normal Prealbumin 20.3 MAGNESIUM - Normal Magnesium 2.15 PHOSPHORUS - Normal Phosphorus 3.1 TRIGLYCERIDES - Normal Triglycerides 119 PHOSPHORUS - Normal Phosphorus 2.9 MAGNESIUM - Normal Magnesium 2.00 MAGNESIUM - Normal Magnesium 2.09 POTASSIUM - Normal Potassium 3.9 POCT GLUCOSE - Normal POCT Glucose 81 POCT GLUCOSE - Normal POCT Glucose 79 CBC WITH AUTO DIFFERENTIAL WBC 8.7 nRBC 0.0 RBC 4.53 Hemoglobin 14.0 Hematocrit 41.3 MCV 91 MCH 30.9 MCHC 33.9 RDW 12.8 Platelets 329 Neutrophils % 67.3 Immature Granulocytes %, Automated 0.5 Lymphocytes % 22.4 Monocytes % 9.3 Eosinophils % 0.2 Basophils % 0.3 Neutrophils Absolute 5.84 Immature Granulocytes Absolute, Automated 0.04 Lymphocytes Absolute 1.95 Monocytes Absolute 0.81 Eosinophils Absolute 0.02 Basophils Absolute 0.03 URINALYSIS WITH REFLEX CULTURE AND MICROSCOPIC Narrative: The following orders were created for panel order Urinalysis with Reflex Culture and Microscopic. Procedure Abnormality Status --------- ------ Urinalysis with Reflex C...[] Abnormal Final result Extra Urine Coles Tube[] Final result Please view results for these tests on the individual orders. EXTRA URINE COLES TUBE Extra Tube Hold for add-ons. HEMOGLOBIN A1C Hemoglobin A1C 5.6 Estimated Average Glucose 114 Narrative: Diagnosis of Diabetes-Adults Non-Diabetic: < or = 5.6% Increased risk for developing diabetes: 5.7-6.4% Diagnostic of diabetes: > or = 6.5% Monitoring of Diabetes Age (y)....................... Therapeutic Goal (%) Adults: >18.........................<7.0 Pediatrics: 13-18...................<7.5 Pediatrics: 7-12....................<8.0 Pediatrics: 0-6..................... 7.5-8.5 [place] [employer]. Diabetes Care 33(S1), May 2009 TYPE AND SCREEN ABO TYPE O Rh TYPE NEG ANTIBODY SCREEN NEG GREEN TOP Extra Tube Hold for add-ons. PHOSPHORUS COMPREHENSIVE METABOLIC PANEL MAGNESIUM POCT GLUCOSE POCT GLUCOSE POCT GLUCOSE POCT GLUCOSE POCT GLUCOSE POCT GLUCOSE POCT GLUCOSE POCT GLUCOSE METER FL small bowel series Final Result 1. High-grade small bowel obstruction. The findings were reviewed with Dr. Posey. MACRO: None Signed by: Roberto Sellers 09/19/2023 4:17 PM Dictation workstation: [id number] XR abdomen 3+ views Final Result NG/OG tube side hole is just beyond the GE junction. Advancement by 3-4 cm is recommended. Redemonstration of dilated small bowel loops in keeping with a bowel obstruction, evaluation limited due to predominantly fluid-filled nature of the small bowel loops. MACRO: None Signed by: Jake Sahni 09/18/2023 6:28 AM Dictation workstation: [id number] XR abdomen 1 view Final Result 1. Enteric tube as above. 2. Findings compatible with a degree of small-bowel obstruction. Please see the CT from the same date for further discussion. Signed by: Partha Ledesma 09/17/2023 4:10 PM Dictation workstation: [id number] CT abdomen pelvis w IV contrast Final Result 1. Small-bowel obstruction with dilatation measuring up to 5.7 cm with transition point in the midline upper pelvis with intraluminal density within the mid jejunum in this area measuring 2.4 cm which has the appearance of the foreign body. The hyperdensity simulates an intussusception on sagittal images. However, in the coronal and axial plane this does not appear to represent an anatomic focus. There is mild mucosal thickening and perienteric fat stranding about the level of the obstruction. No perforation. General surgery consultation recommended. MACRO: None Signed by: Dionne Britton 09/17/2023 1:33 PM Dictation workstation: [id number] Procedures Medical Decision Making Patient has had intermittent abdominal issues over the past 2 years, recently had an EGD and colonoscopy in May. Patient states that she was having an episode of vomiting every 3 to 4 weeks and most recently she has been vomiting every week. She states that over the past 4 days she has had severe nausea and vomiting and has been able to keep very little down. She did have a bowel movement this morning which she states was nearly normal. CT scan is showing a small bowel obstruction measuringup to 5.7 cm with a transition point, concern for the appearance of a foreign body which patient denies any potential ingestion. There is also a suspicion on one of the CT views of an intussusception. Patient is currently nauseous. She is denying any pain and her repeat abdominal exam is benign. Consulted with general surgery, Dr. Malik who recommends admission to the hospitalist. NG tube hasbeen ordered per recommendation. Patient was seen and evaluated by myself and attending physician, Dr. Vaughn Differential diagnosis includes but not limited to colitis, appendicitis, cholecystitis, pancreatitis, urinary tract infection The patient was seen by the advanced practice provider. I have personally performed a substantive portion of the encounter. I have seen and examined the patient; agree with the workup, evaluation, MDM, management and diagnosis. The care plan has been discussed. I personally saw the patient and made/approved the management plan and take responsibility for the patient's management. History: Abdominal pain. This 67-year-old white female presents to the ED with 4-day history of generalized abdominal pain patient states that she has had bowel issues for the past 2 years. Patient admits to having a CT scan performed 2 years ago and recently had a colonoscopy and EGD. She states that 4 days ago she developed nausea, vomiting abdominal bloating and difficulty with urination. She states that she had a very small bowel movement this morning. She denies any fevers or chills and states that she feels as though she may be dehydrated and needs fluids. Patient states that she was only able to urinate a very small amount today prior to coming to the ED. Exam: Patient is alert awake oriented appears to be no obvious distress nontoxic cooperative and pleasant. ENT examination unremarkable neck is supple without meningismus. Heart tachycardic rate without murmur. Lungs are clear to auscultation bilaterally respirations are easy and symmetric without retractions or tachypnea. Abdomen is protuberant soft with diffuse tenderness there is no rebound rigidity guarding or CVA tenderness no examination. Distally cap refill less than 2 seconds. No focal neurologic deficits are appreciated. MDM: Patient was worked up for her abdominal pain symptoms and was ordered blood work as well as a CT scan of the abdomen pelvis. CMP revealed BUN to be elevated 46. Glucose is 128. Calcium was 7.7 albumin was 3.2. Protein was 5.5. Lipase was normal at 21. Lactic acid was normal at 1.6. Bilirubin was 0.1 white cell count was normal 8.7. Hemoglobin 14.0. Hematocrit 41.3. Platelets were normal at 329. CT scan of the abdomen pelvis with IV contrast revealed a small bowel obstruction with dilatation measuring up to 5.7 cm and transition point in the midline upper pelvis with a intraluminal density within the mid jejunum in this area measuring up to 2.4 cm which has appearance of foreign body ofthe hyperdensity simulates an intussusception on sagittal images however in the coronal and axial plane this is. To represent an anatomical focus. There is mild mucosal thickening in perienteric fat stranding about the level of the obstruction no perforation. After getting the CT scan results we did have a discussion with the patient and patient's family concerning the findings on CAT scan and plan of care General surgery was consulted and Dr. Benito came down to see the patient and subsequently patient was admitted to the hospital after an NG tube was placed. Partha Vaughn DO Amount and/or Complexity of Data Reviewed Labs: ordered. Decision-making details documented in ED Course. Radiology: ordered. Decision-making details documented in ED Course. Risk Decision regarding hospitalization. Diagnoses as of 09/20/23 025 Small bowel obstruction (Multi) Nausea and vomiting, unspecified vomiting type Gladys Robles PA-C 09/17/23 1414 Partha Vaughn DO 09/20/23250 [facility] Work Phone: [phone] History of Present illness Narrative* Monie Galarza MD - 09/12/2023 8:15 AM EDT Subjective Patient ID: Kamila Patel is a 67 y.o. female who presents for Follow-up (3 WK F/U). HPI F/U ON ABDOMINAL BLOATING AND CHRONIC NAUSEA WHICH ARE STILL PRESENT ON AND OFF . HER DIET IS LIMITED, VOMITS 3-4 TIMES / WEEK, WEIGHT LOSS. HAS BEEN FOLLOWING THE GLUTEN FREE DIET AND TAKES THE OMEPRAZOLE , PEPCID AND PRN PHENERGAN WITH PROBIOTIC . HASN'T BEEN TAKING THE SUCRALFATE YET. Review of Systems Constitutional: Negative for chills and fever. HENT: Negative. Negative for congestion, postnasal drip and rhinorrhea. Eyes: Negative. Negative for visual disturbance. Respiratory: Negative for cough, shortness of breath and wheezing. Cardiovascular: Negative. Negative for chest pain, palpitations and leg swelling. Gastrointestinal: Positive for nausea and vomiting. Negative for abdominal distention, abdominal pain, constipation and diarrhea. FOOD INTOLERANCE, BLOATING Endocrine: Negative. Genitourinary: Negative for dysuria and urgency. Musculoskeletal: Negative. Negative for back pain. Skin: Negative. Negative for rash. Allergic/Immunologic: Negative for immunocompromised state. Neurological: Negative. Negative for dizziness, weakness, light-headedness and headaches. Psychiatric/Behavioral: Negative. Negative for agitation. Objective Physical Exam Constitutional: General: She is not in acute distress. HENT: Head: Normocephalic. Nose: Nose normal. Mouth/Throat: Mouth: Mucous membranes are moist. Eyes: Conjunctiva/sclera: Conjunctivae normal. Pupils: Pupils are equal, round, and reactive to light. Cardiovascular: Rate and Rhythm: Normal rate and regular rhythm. Pulses: Normal pulses. Heart sounds: Normal heart sounds. Pulmonary: Effort: No respiratory distress. Breath sounds: No wheezing. Chest: Chest wall: No tenderness. Abdominal: General: Abdomen is flat. Bowel sounds are normal. Palpations: Abdomen is soft. Tenderness: There is no abdominal tenderness. Musculoskeletal: General: No tenderness. Normal range of motion. Cervical back: Normal range of motion. Lymphadenopathy: Cervical: No cervical adenopathy. Skin: General: Skin is warm and dry. Findings: No rash. Neurological: General: No focal deficit present. Mental Status: She is alert. Mental status is at baseline. Psychiatric: Mood and Affect: Mood normal. Behavior: Behavior normal. Assessment/Plan 1. Chronic nausea Referral to Gastroenterology 2. Food intolerance Referral to Gastroenterology 3. Weight loss, non-intentional Referral to Gastroenterology 4. Benign essential HTN 5. Chronic gastritis without bleeding, unspecified gastritis type ADVISED TO DO ANOTHER EGD , PT WANTS TO BE REFERRED TO GI. ADVISED NO TO overeat. Eat small portions at meals and snacks. Avoid tight clothing and tight-fitting belts. Do not lie down or bend over within the first 15-30 minutes after eating. Do not chew gum or suck on hard candy. Swallowing air with chewing gum and sucking on hard candy can cause belching and reflux. Raise the head of your bed 6-8 inches. Do not eat/drink: chocolate, tomatoes, tomato sauces, oranges, pineapple, grapefruit, mints, coffee, alcohol, carbonated beverages, and black pepper. Eat a low fat diet. Fatty and greasy foods cause your stomach to produce more acid. MDM 1) COMPLEXITY: 1 UNDIAGNOSED NEW PROBLEM WITH UNCERTAIN PROGNOSIS 2)DATA: TESTS INTERPRETED AND OR ORDERED, TOOK INDEPENDENT HISTORY OR RECORDS REVIEWED 3)RISK: MODERATE RISK DUE TO NATURE OF MEDICAL CONDITIONS/COMORBIDITY OR MEDICATIONS ORDERED OR SURGICAL OR PROCEDURE REFERRAL, . 6 WEEKS. Send outside [facility] FOR GI REFERRAL documented in this [facility] Work Phone: [phone] 999-208704-22-2024 History of Present illness Narrative* Monie Galarza MD - 08/22/2023 8:45 AM EDT Subjective Patient ID: Kamila Patel is a 67 y.o. female who presents for Follow-up (6 WEEK FOLLOW UP- DID DO GLUTEN FREE DIET STRICTLY FOR 6 WEEKS AND STILL HAVING THE SYMPTOMS as BEFORE.). HPI F/U ON GERD AND GASTRITIS , MED REFILL . HAS BEEN FOLLOWING THE GLUTEN FREE DIET, WHICH HELPS SOME ,BUT STILL GETS NAUSEA ON AND OFF AND HAS VOMITING ALMOST ONCE / WEEK .NO ABDOMINAL PAIN. Review of Systems Constitutional: Negative for chills and fever. HENT: Negative. Negative for congestion, postnasal drip and rhinorrhea. Eyes: Negative. Negative for visual disturbance. Respiratory: Negative for cough, shortness of breath and wheezing. Cardiovascular: Negative. Negative for chest pain, palpitations and leg swelling. Gastrointestinal: Positive for nausea. Negative for abdominal distention, abdominal pain, constipation, diarrhea and vomiting. Endocrine: Negative. Genitourinary: Negative for dysuria and urgency. Musculoskeletal: Negative. Negative for back pain. Skin: Negative. Negative for rash. Allergic/Immunologic: Negative for immunocompromised state. Neurological: Negative. Negative for dizziness, weakness, light-headedness and headaches. Psychiatric/Behavioral: Negative. Negative for agitation. Objective Physical Exam Constitutional: General: She is not in acute distress. HENT: Head: Normocephalic. Nose: Nose normal. Mouth/Throat: Mouth: Mucous membranes are moist. Eyes: Conjunctiva/sclera: Conjunctivae normal. Pupils: Pupils are equal, round, and reactive to light. Cardiovascular: Rate and Rhythm: Normal rate and regular rhythm. Pulses: Normal pulses. Heart sounds: Normal heart sounds. Pulmonary: Effort: No respiratory distress. Breath sounds: No wheezing. Chest: Chest wall: No tenderness. Abdominal: General: Abdomen is flat. Bowel sounds are normal. Palpations: Abdomen is soft. Tenderness: There is no abdominal tenderness. Musculoskeletal: General: No tenderness. Normal range of motion. Cervical back: Normal range of motion. Lymphadenopathy: Cervical: No cervical adenopathy. Skin: General: Skin is warm and dry. Findings: No rash. Neurological: General: No focal deficit present. Mental Status: She is alert. Mental status is at baseline. Psychiatric: Mood and Affect: Mood normal. Behavior: Behavior normal. Assessment/Plan 1. Nausea promethazine (Phenergan) 50 mg tablet 2. Gastroesophageal reflux disease without esophagitis 3. Chronic gastritis without bleeding, unspecified gastritis type ADVISED TO HAVE LOW FAT AND LOW CALORIE DIET AND TO TRY DAIRY FREE , TO CONTINUE THE GLUTEN FREE DIET. ADVISED TO TAKE PHENERGAN DAILY TO PREVENT THE NAUSEA. Do not overeat. Eat small portions at meals and snacks. Avoid tight clothing and tight-fitting belts. Do not lie down or bend over within the first 15-30 minutes after eating. Do not chew gum or suck on hard candy. Swallowing air with chewing gum and sucking on hard candy can cause belching and reflux. Raise the head of your bed 6-8 inches. Do not eat/drink: chocolate, tomatoes, tomato sauces, oranges, pineapple, grapefruit, mints, coffee, alcohol, carbonated beverages, and black pepper. Eat a low fat diet. Fatty and greasy foods cause your stomach to produce more acid. MDM 1) COMPLEXITY: 1 UNDIAGNOSED NEW PROBLEM WITH UNCERTAIN PROGNOSIS 2)DATA: TESTS INTERPRETED AND OR ORDERED, TOOK INDEPENDENT HISTORY OR RECORDS REVIEWED 3)RISK: MODERATE RISK DUE TO NATURE OF MEDICAL CONDITIONS/COMORBIDITY OR MEDICATIONS ORDERED OR SURGICAL OR PROCEDURE REFERRAL, . 3 weeks documented in this [facility] Work Phone: [phone] History of Present illness Narrative* Monie Galarza MD - 07/11/2023 8:15 AM EDT Subjective Patient ID: Kamila Patel is a 67 y.o. female who presents for Follow-up (2 wk F/U, GI check). HPI F/U ON H PULORI INFECTION ,CHRONIC GASTRITIS, ABDOMINAL BLOATING. FINISHED THE COURSE OF TX, ACUTE SYMPTOMS ARE IMPROVED, BUT STILL GETS THE BLOATING AND NAUSEA . ABDOMINAL PAIN IS RESOLVED.CHRONIC FATIGUE. Review of Systems Constitutional: Positive for fatigue. Negative for chills and fever. HENT: Negative. Negative for congestion, postnasal drip and rhinorrhea. Eyes: Negative. Negative for visual disturbance. Respiratory: Negative for cough, shortness of breath and wheezing. Cardiovascular: Negative. Negative for chest pain, palpitations and leg swelling. Gastrointestinal: Positive for nausea. Negative for abdominal distention, abdominal pain, constipation, diarrhea and vomiting. BLOATING Endocrine: Negative. Genitourinary: Negative for dysuria and urgency. Musculoskeletal: Negative. Negative for back pain. Skin: Negative. Negative for rash. Allergic/Immunologic: Negative for immunocompromised state. Neurological: Negative. Negative for dizziness, weakness, light-headedness and headaches. Psychiatric/Behavioral: Negative. Negative for agitation. Objective Physical Exam Constitutional: General: She is not in acute distress. HENT: Head: Normocephalic. Nose: Nose normal. Mouth/Throat: Mouth: Mucous membranes are moist. Eyes: Conjunctiva/sclera: Conjunctivae normal. Pupils: Pupils are equal, round, and reactive to light. Cardiovascular: Rate and Rhythm: Normal rate and regular rhythm. Pulses: Normal pulses. Heart sounds: Normal heart sounds. Pulmonary: Effort: No respiratory distress. Breath sounds: No wheezing. Chest: Chest wall: No tenderness. Abdominal: General: Abdomen is flat. Bowel sounds are normal. Palpations: Abdomen is soft. Tenderness: There is no abdominal tenderness. Musculoskeletal: General: No tenderness. Normal range of motion. Cervical back: Normal range of motion. Lymphadenopathy: Cervical: No cervical adenopathy. Skin: General: Skin is warm and dry. Findings: No rash. Neurological: General: No focal deficit present. Mental Status: She is alert. Mental status is at baseline. Psychiatric: Mood and Affect: Mood normal. Behavior: Behavior normal. Assessment/Plan 1. Chronic gastritis without bleeding, unspecified gastritis type sucralfate (Carafate) 1 gram tablet 2. Abdominal bloating Lactobacillus acidophilus (Probiotic Acidophilus) 250 million cell capsule 3. Fatigue, unspecified type ADVISED NOT TO overeat. Eat small portions at meals and snacks. Avoid tight clothing and tight-fitting belts. Do not lie down or bend over within the first 15-30 minutes after eating. Do not chew gum or suck on hard candy. Swallowing air with chewing gum and sucking on hard candy can cause belching and reflux. Raise the head of your bed 6-8 inches. Do not eat/drink: chocolate, tomatoes, tomato sauces, oranges, pineapple, grapefruit, mints, coffee, alcohol, carbonated beverages, and black pepper. Eat a low fat diet. Fatty and greasy foods cause your stomach to produce more acid. ADVISED TO FOLLOW THE GLUTEN FREE DIET AND LATER DAIRY FREE TO HELP WITH DIGESTION. MDM 1) COMPLEXITY: 1 UNDIAGNOSED NEW PROBLEM WITH UNCERTAIN PROGNOSIS 2)DATA: TESTS INTERPRETED AND OR ORDERED, TOOK INDEPENDENT HISTORY OR RECORDS REVIEWED 3)RISK: MODERATE RISK DUE TO NATURE OF MEDICAL CONDITIONS/COMORBIDITY OR MEDICATIONS ORDERED OR SURGICAL OR PROCEDURE REFERRAL, . 6 week. documented in this [facility] Work Phone: [phone]) [phone] History of Present illness Narrative* Monie Galarza MD - 06/06/2023 8:30 AM EST Subjective Patient ID: Kamila Patel is a 67 y.o. female who presents for Follow-up (1 WEEK F/U, NAUSEA HASN'T BEEN BAD LATELY, FEELS A LOT BETTER. ). HPI F/U ON HTN,, EGD AND COLONOSCOPY . PT WAS ALREADY INFORMED ABOUT THE DX OF H.PYLORI AND THE TX HELPS WITH SYMPTOMS. ABDOMINAL PAIN AND NAUSEA/VOMITING AND DIARRHEA ARE IMPROVED. Review of Systems Constitutional: Negative for chills and fever. HENT: Negative. Negative for congestion, postnasal drip and rhinorrhea. Eyes: Negative. Negative for visual disturbance. Respiratory: Negative for cough, shortness of breath and wheezing. Cardiovascular: Negative. Negative for chest pain, palpitations and leg swelling. Gastrointestinal: Negative. Negative for abdominal distention, abdominal pain, constipation, diarrhea, nausea and vomiting. PER HPI Endocrine: Negative. Genitourinary: Negative for dysuria and urgency. Musculoskeletal: Negative. Negative for back pain. Skin: Negative. Negative for rash. Allergic/Immunologic: Negative for immunocompromised state. Neurological: Negative. Negative for dizziness, weakness, light-headedness and headaches. Psychiatric/Behavioral: Negative. Negative for agitation. Objective Physical Exam Constitutional: General: She is not in acute distress. HENT: Head: Normocephalic. Nose: Nose normal. Mouth/Throat: Mouth: Mucous membranes are moist. Eyes: Conjunctiva/sclera: Conjunctivae normal. Pupils: Pupils are equal, round, and reactive to light. Cardiovascular: Rate and Rhythm: Normal rate and regular rhythm. Pulses: Normal pulses. Heart sounds: Normal heart sounds. Pulmonary: Effort: No respiratory distress. Breath sounds: No wheezing. Chest: Chest wall: No tenderness. Abdominal: General: Abdomen is flat. Bowel sounds are normal. Palpations: Abdomen is soft. Tenderness: There is no abdominal tenderness. Musculoskeletal: General: No tenderness. Normal range of motion. Cervical back: Normal range of motion. Lymphadenopathy: Cervical: No cervical adenopathy. Skin: General: Skin is warm and dry. Findings: No rash. Neurological: General: No focal deficit present. Mental Status: She is alert. Mental status is at baseline. Psychiatric: Mood and Affect: Mood normal. Behavior: Behavior normal. Assessment/Plan 1. Gastroesophageal reflux disease without esophagitis 2. Chronic gastritis without bleeding, unspecified gastritis type 3. Hiatal hernia 4. Benign essential HTN 5. H. pylori infection 6. Gastric polyp TEST RESULTS WERE DISCUSSED. MONITOR BP GOAL BP LOWER THAN 130/80 LOW SALT EXERCISE DAILY ADVISED not TO overeat. Eat small portions at meals and snacks. Avoid tight clothing and tight-fitting belts. Do not lie down or bend over within the first 15-30 minutes after eating. Do not chew gum or suck on hard candy. Swallowing air with chewing gum and sucking on hard candy can cause belching and reflux. Raise the head of your bed 6-8 inches. Do not eat/drink: chocolate, tomatoes, tomato sauces, oranges, pineapple, grapefruit, mints, coffee, alcohol, carbonated beverages, and black pepper. Eat a low fat diet. Fatty and greasy foods cause your stomach to produce more acid. MDM 1) COMPLEXITY: MORE THAN 1 STABLE CHRONIC CONDITION ADDRESSED 2)DATA: TESTS INTERPRETED AND OR ORDERED, TOOK INDEPENDENT HISTORY OR RECORDS REVIEWED 3)RISK: MODERATE RISK DUE TO NATURE OF MEDICAL CONDITIONS/COMORBIDITY OR MEDICATIONS ORDERED OR SURGICAL OR PROCEDURE REFERRAL, . 3 weeks COLONOSCOPY TO BE DONE IN 3 YEARS [facility]: [phone] Evaluation + Plan note* Assessment & Plan Note - Monie Galarza MD - 05/30/2023 5:52 PM ESTAssociated Problem(s): Protein-calorie malnutrition, unspecified severity (CMS/HCC) Doing fine and stable with current management, continue same [facility] Work Phone: [phone]) [phone] Evaluation + Plan note* Assessment & Plan Note - Monie Galarza MD - 05/30/2023 5:52 PM ESTAssociated Problem(s): Hypoproteinemia (CMS/HCC) ADDRESSED, STABLE. [facility] Work Phone: [phone] Miscellaneous Notes* Assessment & Plan Note - Monie Galarza MD - 05/30/2023 5:52 PM ESTAssociated Problem(s): Protein- calorie malnutrition, unspecified severity (CMS/HCC) Doing fine and stable with current management, continue same * Assessment & Plan Note - Monie Galarza MD - 05/30/2023 5:52 PM EST Associated Problem(s): Hypoproteinemia (CMS/HCC) ADDRESSED, STABLE. [facility] Work Phone: [phone] History of Present illness Narrative* Monie Galarza MD - 05/30/2023 11:15 AM EST Subjective Reason for Visit: Kamila Patel is an 67 y.o. female here for a Medicare Wellness visit. Past Medical, Surgical, and Family History reviewed and updated in chart. Reviewed all medications by prescribing practitioner or clinical pharmacist (such as prescriptions,OTCs, herbal therapies and supplements) and documented in the medical record. HPI F/U ON EGD AND COLONOSCOPY. HAS NAUSEA , VOMITING X 2-3 DAYS WITH EPIGASTRIC ABDOMINAL PAIN 4-6/10 . WASN'T ABLE TO TOLERATE THE WATER TOO AND STOPPE ALL OF HER MEDICATIONS. BP IS ELEVATED TODAY, HASNO CHEST PAIN OR HEADACHE. NO DIARRHEA . MEDICARE WELLNESS EXAM. Patient Care Team: Monie Galarza MD as PCP - General Monie Galarza MD as PCP - [employer] PCP Review of Systems Constitutional: Negative for chills and fever. HENT: Negative. Negative for congestion, postnasal drip and rhinorrhea. Eyes: Negative. Negative for visual disturbance. Respiratory: Negative for cough, shortness of breath and wheezing. Cardiovascular: Negative. Negative for chest pain, palpitations and leg swelling. Gastrointestinal: Positive for abdominal pain, nausea and vomiting. Negative for abdominal distention, constipation and diarrhea. Endocrine: Negative. Genitourinary: Negative for dysuria and urgency. Musculoskeletal: Negative. Negative for back pain. Skin: Negative. Negative for rash. Allergic/Immunologic: Negative for immunocompromised state. Neurological: Negative. Negative for dizziness, weakness, light-headedness and headaches. Psychiatric/Behavioral: Negative. Negative for agitation. Objective Vitals: BP (!) 154/93 Pulse 103 Ht 1.524 m (5') Wt (!) 43.5 kg (96 lb) LMP (LMP Unknown) BMI 18.75 kg/m Physical Exam Constitutional: General: She is not in acute distress. HENT: Head: Normocephalic. Nose: Nose normal. Mouth/Throat: Mouth: Mucous membranes are moist. Eyes: Conjunctiva/sclera: Conjunctivae normal. Pupils: Pupils are equal, round, and reactive to light. Cardiovascular: Rate and Rhythm: Normal rate and regular rhythm. Pulses: Normal pulses. Heart sounds: Normal heart sounds. Pulmonary: Effort: No respiratory distress. Breath sounds: No wheezing. Chest: Chest wall: No tenderness. Abdominal: General: Abdomen is flat. Bowel sounds are normal. Palpations: Abdomen is soft. Tenderness: There is abdominal tenderness. Comments: MILD EPIGASTRIC TENDERNESS Musculoskeletal: General: No tenderness. Normal range of motion. Cervical back: Normal range of motion. Lymphadenopathy: Cervical: No cervical adenopathy. Skin: General: Skin is warm and dry. Findings: No rash. Neurological: General: No focal deficit present. Mental Status: She is alert. Mental status is at baseline. Psychiatric: Mood and Affect: Mood normal. Behavior: Behavior normal. Assessment/Plan 1. Routine general medical examination at health care facility 2. Nausea and vomiting, unspecified vomiting type ondansetron (Zofran) 4 mg tablet 3. Abdominal pain, epigastric sucralfate (Carafate) 1 gram tablet 4. Acute gastritis without hemorrhage, unspecified gastritis type 5. Protein-calorie malnutrition, unspecified severity (CMS/HCC) 6. Hypoproteinemia (CMS/HCC) 7. Benign essential HTN 8. Gastroesophageal reflux disease without esophagitis 9. Hiatal hernia TEST RESULTS WERE DISCUSSED. Advanced Care planning discussed with patient,diagnosis , treatment and prognosis discussed with pt,pt has capacity to make own decision, pt does not have an AD, advised to set one up and bring a copy for the chart. ADVISED TO HAVE ICY COLD MORE GATORADE ,AND TO HAVE LOW FAT DIET , TO ADVANCE THE DIET SLOWLY OVER SEVERAL DAYS as TOLERATED , ICE CHIPS FOR NAUSEA. ADVISED TO GO TO ER IF ABDOMINAL PAIN OR NAUSEA/ VOMITING GET WORSE. Do not overeat. Eat small portions at meals and snacks. Avoid tight clothing and tight-fitting belts. Do not lie down or bend over within the first 15-30 minutes after eating. Do not chew gum or suck on hard candy. Swallowing air with chewing gum and sucking on hard candy can cause belching and reflux. Raise the head of your bed 6-8 inches. Do not eat/drink: chocolate, tomatoes, tomato sauces, oranges, pineapple, grapefruit, mints, coffee, alcohol, carbonated beverages, and black pepper. Eat a low fat diet. Fatty and greasy foods cause your stomach to produce more acid. MDM 1) COMPLEXITY: 1 UNDIAGNOSED NEW PROBLEM WITH UNCERTAIN PROGNOSIS 2)DATA: TESTS INTERPRETED AND OR ORDERED, TOOK INDEPENDENT HISTORY OR RECORDS REVIEWED 3)RISK: MODERATE RISK DUE TO NATURE OF MEDICAL CONDITIONS/COMORBIDITY OR MEDICATIONS ORDERED OR SURGICAL OR PROCEDURE REFERRAL, . 1 week documented in this [facility] Work Phone: [phone]) 310-274601-25-2024 Hospital Discharge instructions* Discharge Instructions* Jazmin Walden RN - 05/26/2023 10:04 AM EST Patient Instructions after an endoscopy or colonoscopy The anesthetics, sedatives or narcotics which were given to you today will be acting in your body for the next 24 hours, so you might feel a little sleepy or groggy. This feeling should slowly wear off. Carefully read and follow the instructions. You received sedation today: - Do not drive or operate any machinery or power tools of any kind. - No alcoholic beverages today, not even beer or wine. - Do not make any important decisions or sign any legal documents. - No over the counter medications that contain alcohol or that may cause drowsiness. - Do not make any important decisions or sign any legal documents. While it is common to experience mild to moderate abdominal distention, gas, or belching after yourprocedure, if any of these symptoms occur following discharge from the GI Lab or within one week ofhaving your procedure, call the [facility] to be advised whether a visit to your nearest Urgent Care or Emergency Department is indicated. Take this paper with you if you go. - If you develop an allergic reaction to the medications that were given during your procedure suchas difficulty breathing, rash, hives, severe nausea, vomiting or lightheadedness.- If you experience chest pain, shortness of breath, severe abdominal pain, fevers and chills. -If you develop signs and symptoms of bleeding such as blood in your spit, if your stools turn black, tarry, or bloody - If you have not urinated within 8 hours following your procedure.- If your IV site becomes painful, red, inflamed, or looks infected.Patient Instructions after a Colonoscopy The anesthetics, sedatives or narcotics which were given to you today will be acting in your body for the next 24 hours, so you might feel a little sleepy or groggy. This feeling should slowly wear off. Carefully read and follow the instructions. You received sedation today: - Do not drive or operate any machinery or power tools of any kind. - No alcoholic beverages today, not even beer or wine. - Do not make any important decisions or sign any legal documents. - No over the counter medications that contain alcohol or that may cause drowsiness. - Do not make any important decisions or sign any legal documents. While it is common to experience mild to moderate abdominal distention, gas, or belching after yourprocedure, if any of these symptoms occur following discharge from the GI Lab or within one week ofhaving your procedure, call the [facility] to be advised whether a visit to your nearest Urgent Care or Emergency Department is indicated. Take this paper with you if you go. - If you develop an allergic reaction to the medications that were given during your procedure suchas difficulty breathing, rash, hives, severe nausea, vomiting or lightheadedness. - If you experience chest pain, shortness of breath, severe abdominal pain, fevers and chills. -If you develop signs and symptoms of bleeding such as blood in your spit, if your stools turn black, tarry, or bloody - If you have not urinated within 8 hours following your procedure. - If your IV site becomes painful, red, inflamed, or looks infected. If you received a biopsy/polypectomy/sphincterotomy the following instructions apply below: __ Do not use Aspirin containing products, non-steroidal medications or anti- coagulants for one week following your procedure. (Examples of these types of medications are: Advil, Arthrotec, Aleve, Coumadin, Ecotrin, Heparin, Ibuprofen, Indocin, Motrin, Naprosyn, Nuprin, Plavix, Vioxx, and Voltarin,or their generic forms. This list is not all-inclusive. Check with your physician or pharmacist before resuming medications.) __ Eat a soft diet today. Avoid foods that are poorly digested for the next 24 hours. These foods would include: nuts, beans, lettuce, red meats, and fried foods. Start with liquids and advance your diet as tolerated, gradually work up to eating solids. __ Do not have a Barium Study or Enema for one week. Your physician recommends the additional following instructions: -You have a contact number available for emergencies. The signs and symptoms of potential delayed complications were discussed with you. You may return to normal activities tomorrow. -Resume your previous diet. -Continue your present medications. -We are waiting for your pathology results. -Your physician has recommended a repeat colonoscopy (date to be determined after pending pathologyresults are reviewed) for surveillance based on pathology results. -The findings and recommendations have been discussed with you. -The findings and recommendations were discussed with your family. - Please see Medication Reconciliation Form for new medication/medications prescribed. If you experience any problems or have any questions following discharge from the GI Lab, please call: Nurse Signature Date Patient/Responsible Democrat Signature Date [facility] Work Phone: [phone]) [phone] History and physical note* Edgar Gordon MD - 05/26/2023 9:30 AM EST Pre procedure H&P Pt feels fine , no complaint General appearance: Comfortable, no distress ROS: No SOB Medications reviewed Head: Normal Neck: Soft Heart: Regular Lungs: Clear Abdomen: soft Impression: clinically doing fine, proceed with procedure Problem List Items Addressed This Visit GERD (gastroesophageal reflux disease) Relevant Orders EGD Other Visit Diagnoses Chronic diarrhea Relevant Orders Colonoscopy Screening; Average Risk Patient Abdominal bloating Relevant Orders EGD Chronic nausea Relevant Orders EGD [facility] Work Phone: [phone]) 522-841301-25-2024 History and physical note* Edgar Gordon MD - 05/26/2023 9:30 AM EST Pre procedure H&P Pt feels fine , no complaint General appearance: Comfortable, no distress ROS: No SOB Medications reviewed Head: Normal Neck: Soft Heart: Regular Lungs: Clear Abdomen: soft Impression: clinically doing fine, proceed with procedure Problem List Items Addressed This Visit GERD (gastroesophageal reflux disease) Relevant Orders EGD Other Visit Diagnoses Chronic diarrhea Relevant Orders Colonoscopy Screening; Average Risk Patient Abdominal bloating Relevant Orders EGD Chronic nausea Relevant Orders EGD documented in this [facility] Work Phone: [phone] 211-949012-13-2023 History of Present illness Narrative* Monie Galarza MD - 04/13/2023 8:00 AM EST Subjective Patient ID: Kamila Patel is a 67 y.o. female who presents for Follow-up (6 MONTH FOLLOW UP FASTING LABS/PT STATES HER BP HAS BEEN ON THE HIGHER SIDE 155 TOP NUMBERS). HPI Lab F/U. BP HAS BEEN AROUND 150/90 AT HOME. WORSENING GERD WITH BLOATING W/O PAIN. CHRONIC NAUSEA,CHRONIC DIARRHEA , CAN'T TOLERATE DAIRIES ,CAN'T EAT MUCH. Review of Systems Constitutional: Negative for chills and fever. HENT: Negative. Negative for congestion, postnasal drip and rhinorrhea. Eyes: Negative. Negative for visual disturbance. Respiratory: Negative for cough, shortness of breath and wheezing. Cardiovascular: Negative. Negative for chest pain, palpitations and leg swelling. Gastrointestinal: Positive for diarrhea and nausea. Negative for abdominal distention, abdominal pain, constipation and vomiting. ABDOMINAL BLOATING Endocrine: Negative. Genitourinary: Negative for dysuria and urgency. Musculoskeletal: Negative. Negative for back pain. Skin: Negative. Negative for rash. Allergic/Immunologic: Negative for immunocompromised state. Neurological: Negative. Negative for dizziness, weakness, light-headedness and headaches. Psychiatric/Behavioral: Negative. Negative for agitation. Objective Physical Exam Constitutional: General: She is not in acute distress. HENT: Head: Normocephalic. Nose: Nose normal. Mouth/Throat: Mouth: Mucous membranes are moist. Eyes: Conjunctiva/sclera: Conjunctivae normal. Pupils: Pupils are equal, round, and reactive to light. Cardiovascular: Rate and Rhythm: Normal rate and regular rhythm. Pulses: Normal pulses. Heart sounds: Normal heart sounds. Pulmonary: Effort: No respiratory distress. Breath sounds: No wheezing. Chest: Chest wall: No tenderness. Abdominal: General: Abdomen is flat. Bowel sounds are normal. Palpations: Abdomen is soft. Tenderness: There is no abdominal tenderness. Musculoskeletal: General: No tenderness. Normal range of motion. Cervical back: Normal range of motion. Lymphadenopathy: Cervical: No cervical adenopathy. Skin: General: Skin is warm and dry. Findings: No rash. Neurological: General: No focal deficit present. Mental Status: She is alert. Mental status is at baseline. Psychiatric: Mood and Affect: Mood normal. Behavior: Behavior normal. Assessment/Plan 1. Benign essential HTN lisinopril 10 mg tablet 2. Gastroesophageal reflux disease without esophagitis EGD famotidine (Pepcid) 20 mg tablet 3. Chronic diarrhea Colonoscopy Screening; Average Risk Patient Ova/Para + Giardia/Cryptosporidium Antigen C. difficile, PCR Rotavirus antigen, stool Cryptosporidium antigen, stool 4. Abdominal bloating EGD 5. Chronic nausea EGD 6. Hypertriglyceridemia MONITOR BP GOAL BP LOWER THAN 130/80 LOW SALT EXERCISE DAILY TEST RESULTS WERE DISCUSSED. ADVISED TO HAVE LOW FAT AND LOW CALORIE DIET, DAILY EXERCISE. Do not overeat. Eat small portions at meals and snacks. Avoid tight clothing and tight-fitting belts. Do not lie down or bend over within the first 15-30 minutes after eating. Do not chew gum or suck on hard candy. Swallowing air with chewing gum and sucking on hard candy can cause belching and reflux. Raise the head of your bed 6-8 inches. Do not eat/drink: chocolate, tomatoes, tomato sauces, oranges, pineapple, grapefruit, mints, coffee, alcohol, carbonated beverages, and black pepper. Eat a low fat diet. Fatty and greasy foods cause your stomach to produce more acid. MDM 1) COMPLEXITY: 1 UNDIAGNOSED NEW PROBLEM WITH UNCERTAIN PROGNOSIS 2)DATA: TESTS INTERPRETED AND OR ORDERED, TOOK INDEPENDENT HISTORY OR RECORDS REVIEWED 3)RISK: MODERATE RISK DUE TO NATURE OF MEDICAL CONDITIONS/COMORBIDITY OR MEDICATIONS ORDERED OR SURGICAL OR PROCEDURE REFERRAL, . 1.5 MON NEEDS CONTAINER FOR STOOL COLLECTION. documented in this [facility] Work Phone: Evaluation note* Diagnosis Benign essential HTN- Primary Gastroesophageal reflux disease without esophagitis Esophageal reflux Chronic diarrhea Diarrhea Abdominal bloating Flatulence, eructation, and gas pain Chronic nausea Nausea alone Hypertriglyceridemia Pure hyperglyceridemia documented in this encounter [facility] Work Phone: [phone] note* Diagnosis Chronic diarrhea Diarrhea Gastroesophageal reflux disease without esophagitis Esophageal reflux Abdominal bloating Flatulence, eructation, and gas pain Chronic nausea Nausea alone documented in this encounter [facility] Work Phone: [phone] note* Diagnosis Chronic diarrhea Diarrhea Gastroesophageal reflux disease without esophagitis Esophageal reflux Abdominal bloating Flatulence, eructation, and gas pain Chronic nausea Nausea alone documented in this encounter [facility] Work Phone: [phone] note* Diagnosis Routine general medical examination at health care facility- Primary Routine general medical examination at a health care facility Nausea and vomiting, unspecified vomiting type Abdominal pain, epigastric Acute gastritis without hemorrhage, unspecified gastritis type Protein-calorie malnutrition, unspecified severity (CMS/HCC) Hypoproteinemia (CMS/HCC) Other disorders of plasma protein metabolism Benign essential HTN Gastroesophageal reflux disease without esophagitis Esophageal reflux Hiatal hernia Diaphragmatic hernia without mention of obstruction or gangrene documented in this encounter [facility] Work Phone: [phone] note* Diagnosis Gastroesophageal reflux disease without esophagitis- Primary Esophageal reflux Chronic gastritis without bleeding, unspecified gastritis type Hiatal hernia Diaphragmatic hernia without mention of obstruction or gangrene Benign essential HTN H. pylori infection Helicobacter pylori (H. pylori) Gastric polyp Benign neoplasm of stomach documented in this encounter [facility] Work Phone: [phone] note* Diagnosis Chronic gastritis without bleeding, unspecified gastritis type- Primary Abdominal bloating Flatulence, eructation, and gas pain Fatigue, unspecified type documented in this encounter [facility] Work Phone: [phone] note* Diagnosis Nausea- Primary Nausea alone Gastroesophageal reflux disease without esophagitis Esophageal reflux Chronic gastritis without bleeding, unspecified gastritis type documented in this encounter [facility] Work Phone: [phone] note* Diagnosis Chronic nausea- Primary Nausea alone Food intolerance Other specified intestinal malabsorption Weight loss, non-intentional Loss of weight Benign essential HTN Chronic gastritis without bleeding, unspecified gastritis type documented in this encounter [facility] Work Phone: Evaluation note* Diagnosis Small bowel obstruction (Multi)- Primary Unspecified intestinal obstruction Small bowel obstruction (Multi) Unspecified intestinal obstruction Nausea and vomiting, unspecified vomiting type documented in this encounter [facility] Work Phone: Evaluation note* Diagnosis Generalized weakness- Primary Gastroenteritis Other and unspecified noninfectious gastroenteritis and colitis BULL (acute kidney injury) ([facility]) documented in this encounter [facility] Work Phone: Evaluation note* Diagnosis Diarrhea- Primary Diarrhea Dehydration Post-operative state Other postprocedural status documented in this encounter [facility] Work Phone: Evaluation note* Diagnosis Fatigue, unspecified type- Primary Gastroesophageal reflux disease, unspecified whether esophagitis present Hypomagnesemia Disorders of magnesium metabolism Hypokalemia Hypopotassemia Benign essential HTN Anemia, unspecified type Hypocalcemia History of partial colectomy S/P small bowel resection Other postprocedural status History of small bowel obstruction Personal history of other diseases of digestive disease documented in this encounter [facility] Work Phone: Evaluation note* Diagnosis Routine general medical examination at health care facility- Primary Routine general medical examination at a health care facility Nausea and vomiting, unspecified vomiting type Abdominal pain, epigastric Acute gastritis without hemorrhage, unspecified gastritis type Protein-calorie malnutrition, unspecified severity (Multi) Hypoproteinemia (Multi) Other disorders of plasma protein metabolism Benign essential HTN Gastroesophageal reflux disease without esophagitis Esophageal reflux Hiatal hernia Diaphragmatic hernia without mention of obstruction or gangrene Chronic diarrhea- Primary Diarrhea Benign essential HTN S/P small bowel resection Other postprocedural status B12 deficiency Anemia, unspecified type Hypomagnesemia Disorders of magnesium metabolism Hypoproteinemia (Multi) Other disorders of plasma protein metabolism Fatigue, unspecified type documented in this encounter [facility] Work Phone: Evaluation note* Diagnosis Routine general medical examination at health care facility- Primary Routine general medical examination at a health care facility Nausea and vomiting, unspecified vomiting type Abdominal pain, epigastric Acute gastritis without hemorrhage, unspecified gastritis type Protein-calorie malnutrition, unspecified severity (Multi) Hypoproteinemia (Multi) Other disorders of plasma protein metabolism Benign essential HTN Gastroesophageal reflux disease without esophagitis Esophageal reflux Hiatal hernia Diaphragmatic hernia without mention of obstruction or gangrene Benign essential HTN- Primary B12 deficiency Encounter for screening mammogram for breast cancer Post-menopausal Asymptomatic postmenopausal status (age-related) (natural) Fatigue, unspecified type documented in this encounter [facility] Work Phone: Evaluation note* Diagnosis Routine general medical examination at [facility]- Primary Routine general medical examination at a [facility] Nausea and vomiting, unspecified vomiting type Abdominal pain, epigastric Acute gastritis without hemorrhage, unspecified gastritis type Protein-calorie malnutrition, unspecified severity (Multi) Hypoproteinemia (Multi) Other disorders of plasma protein metabolism Benign essential HTN Gastroesophageal reflux disease without esophagitis Esophageal reflux Hiatal hernia Diaphragmatic hernia without mention of obstruction or gangrene Chronic diarrhea- Primary Diarrhea Benign essential HTN Hypokalemia Hypopotassemia Hypomagnesemia Disorders of magnesium metabolism Hypocalcemia Hypoproteinemia (Multi) Other disorders of plasma protein metabolism documented in this encounter [facility] Work Phone: Evaluation note* Diagnosis Routine general medical examination at [facility] facility- Primary Routine general medical examination at a [facility] Nausea and vomiting, unspecified vomiting type Abdominal pain, epigastric Acute gastritis without hemorrhage, unspecified gastritis type Protein-calorie malnutrition, unspecified severity (Multi) Hypoproteinemia (Multi) Other disorders of plasma protein metabolism Benign essential HTN Gastroesophageal reflux disease without esophagitis Esophageal reflux Hiatal hernia Diaphragmatic hernia without mention of obstruction or gangrene Benign essential HTN- Primary Protein-calorie malnutrition, unspecified severity (Multi) Chronic diarrhea Diarrhea Anemia, unspecified type B12 deficiency documented in this encounter [facility] Work Phone: Evaluation note* Diagnosis Routine general medical examination at [facility]- Primary Routine general medical examination at [facility] Nausea and vomiting, unspecified vomiting type Abdominal pain, epigastric Acute gastritis without hemorrhage, unspecified gastritis type Protein-calorie malnutrition, unspecified severity (Multi) Hypoproteinemia (Multi) Other disorders of plasma protein metabolism Benign essential HTN Gastroesophageal reflux disease without esophagitis Esophageal reflux Hiatal hernia Diaphragmatic hernia without mention of obstruction or gangrene Benign essential HTN- Primary B12 deficiency documented in this encounter [facility] Work Phone: Evaluation note* Diagnosis Routine general medical examination at health care facility- Primary Routine general medical examination at a [facility] facility Nausea and vomiting, unspecified vomiting type Abdominal pain, epigastric Acute gastritis without hemorrhage, unspecified gastritis type Protein-calorie malnutrition, unspecified severity (Multi) Hypoproteinemia (Multi) Other disorders of plasma protein metabolism Benign essential HTN Gastroesophageal reflux disease without esophagitis Esophageal reflux Hiatal hernia Diaphragmatic hernia without mention of obstruction or gangrene Post-menopausal Asymptomatic postmenopausal status (age-related) (natural) documented in this encounter [facility] Work Phone: Evaluation note* Diagnosis Routine general medical examination at health care facility- Primary Routine general medical examination at a [facility] facility Nausea and vomiting, unspecified vomiting type Abdominal pain, epigastric Acute gastritis without hemorrhage, unspecified gastritis type Protein-calorie malnutrition, unspecified severity (Multi) Hypoproteinemia (Multi) Other disorders of plasma protein metabolism Benign essential HTN Gastroesophageal reflux disease without esophagitis Esophageal reflux Hiatal hernia Diaphragmatic hernia without mention of obstruction or gangrene Encounter for screening mammogram for breast cancer documented in this encounter [facility] Work Phone: Evaluation note* Diagnosis Routine general medical examination at health care facility- Primary Routine general medical examination at a [facility] facility Nausea and vomiting, unspecified vomiting type Abdominal pain, epigastric Acute gastritis without hemorrhage, unspecified gastritis type Protein-calorie malnutrition, unspecified severity (Multi) Hypoproteinemia (Multi) Other disorders of plasma protein metabolism Benign essential HTN Gastroesophageal reflux disease without esophagitis Esophageal reflux Hiatal hernia Diaphragmatic hernia without mention of obstruction or gangrene Abnormal mammogram Abnormal mammogram, unspecified documented in this encounter [facility] Work Phone: Evaluation note* Diagnosis Routine general medical examination at health care facility- Primary Routine general medical examination at a [facility] Nausea and vomiting, unspecified vomiting type Abdominal pain, epigastric Acute gastritis without hemorrhage, unspecified gastritis type Protein-calorie malnutrition, unspecified severity (Multi) Hypoproteinemia (Multi) Other disorders of plasma protein metabolism Benign essential HTN Gastroesophageal reflux disease without esophagitis Esophageal reflux Hiatal hernia Diaphragmatic hernia without mention of obstruction or gangrene Fatigue, unspecified type- Primary B12 deficiency Benign essential HTN Protein-calorie malnutrition, unspecified severity (Multi) Hypertriglyceridemia Pure hyperglyceridemia documented in this encounter [facility] Work Phone: Evaluation note* Diagnosis Routine general medical examination at [facility] care facility- Primary Routine general medical examination at a [facility] Nausea and vomiting, unspecified vomiting type Abdominal pain, epigastric Acute gastritis without hemorrhage, unspecified gastritis type Protein-calorie malnutrition, unspecified severity (Multi) Hypoproteinemia (Multi) Other disorders of plasma protein metabolism Benign essential HTN Gastroesophageal reflux disease without esophagitis Esophageal reflux Hiatal hernia Diaphragmatic hernia without mention of obstruction or gangrene Routine general medical examination at [facility]- Primary Routine general medical examination at a [facility] Benign essential HTN Hypertriglyceridemia Pure hyperglyceridemia B12 deficiency Chronic fatigue Other malaise and fatigue documented in this encounter [facility] Work Phone: Evaluation note* Diagnosis Routine general medical examination at [facility]- Primary Routine general medical examination at a [facility] Nausea and vomiting, unspecified vomiting type Abdominal pain, epigastric Acute gastritis without hemorrhage, unspecified gastritis type Protein-calorie malnutrition, unspecified severity (Multi) Hypoproteinemia (Multi) Other disorders of plasma protein metabolism Benign essential HTN Gastroesophageal reflux disease without esophagitis Esophageal reflux Hiatal hernia Diaphragmatic hernia without mention of obstruction or gangrene Routine general medical examination at [facility]- Primary Routine general medical examination at a [facility] Benign essential HTN Hypertriglyceridemia Pure hyperglyceridemia B12 deficiency Chronic fatigue Other malaise and fatigue Benign essential HTN- Primary Hypokalemia Hypopotassemia B12 deficiency Need for influenza vaccination Need for prophylactic vaccination and inoculation against influenza Chronic diarrhea Diarrhea documented in this encounter [facility] Work Phone: Evaluation note* Diagnosis Routine general medical examination at [facility]- Primary Routine general medical examination at a [facility] Nausea and vomiting, unspecified vomiting type Abdominal pain, epigastric Acute gastritis without hemorrhage, unspecified gastritis type Protein-calorie malnutrition, unspecified severity (Multi) Hypoproteinemia (Multi) Other disorders of plasma protein metabolism Benign essential HTN Gastroesophageal reflux disease without esophagitis Esophageal reflux Hiatal hernia Diaphragmatic hernia without mention of obstruction or gangrene Routine general medical examination at [facility]- Primary Routine general medical examination at a [facility] Benign essential HTN Hypertriglyceridemia Pure hyperglyceridemia B12 deficiency Chronic fatigue Other malaise and fatigue Benign essential HTN- Primary B12 deficiency documented in this encounter [facility] Work Phone: Evaluation note* Diagnosis Routine general medical examination at health care facility- Primary Routine general medical examination at a health care facility Nausea and vomiting, unspecified vomiting type Abdominal pain, epigastric Acute gastritis without hemorrhage, unspecified gastritis type Protein-calorie malnutrition, unspecified severity (Multi) Hypoproteinemia (Multi) Other disorders of plasma protein metabolism Benign essential HTN Gastroesophageal reflux disease without esophagitis Esophageal reflux Hiatal hernia Diaphragmatic hernia without mention of obstruction or gangrene Routine general medical examination at health care facility- Primary Routine general medical examination at a health care facility Benign essential HTN Hypertriglyceridemia Pure hyperglyceridemia B12 deficiency Chronic fatigue Other malaise and fatigue Benign essential HTN- Primary B12 deficiency documented in this encounter [facility] Work Phone: History of Present illness NarrativePresents for annual exam. She voices no complaints and is doing well. Denies any bowel or bladder problems. Denies any breast problems. She had previous hysterectomy for endometrial and cervical cancer.[address] Work Phone: History of Present illness NarrativeLAB F/U. COMPLAINS OF CHRONIC FATIGUE AND INSOMNIA.IS SUPPOSED TO DO F/U U/S OF L BREAST BY [employer] FORABNORMAL MAMMO.[facility] Work Phone: History of Present illness Narrative* Kamila is unfortunate 66-year-old female with longstanding history of chronic constipation beginning in adolescence. Had cervical, uterine cancer in 2012 underwent pelvic exoneration and then external and internal radiation therapy. Had colonoscopy last in 2011 shortly after hysterectomy. Underwentextensive GI work-up for intermittent nausea constipation diarrhea and persistent abdominal bloating and nausea. Work-up at [facility] with Dr. Frias was unremarkable including upper endoscopy, HIDA scan and gallbladder ultrasound. Last CT scan was performed in 2014. She is currently asymptomatic and not following with [employer] but sees Dr. Aiken annually most recent Pap test was unremarkable. * She admits that if she eats high residue food she will feel bloated often has episodes of vomiting which occur maybe 3 times monthly she will feel bloated in her mid epigastric region have much of belching followed by vomiting of liquid material then concha diarrhea and symptoms harsh. She admits her last episode occurred after eating salad at [employer]. She denies any rectal bleeding or weight loss. Most recent labs including CBC, vitamin D level and chemistries were unremarkable other than a slightly low protein level. [facility] [id number] Work Phone: History of Present illness Narrative* Kamila is unfortunate 66-year-old female with longstanding history of chronic constipation beginning in adolescence. Had cervical, uterine cancer in 2011 underwent pelvic exoneration and then external and internal radiation therapy. Had colonoscopy last in 2011 shortly after hysterectomy. Underwentextensive GI work-up for intermittent nausea constipation diarrhea and persistent abdominal bloating and nausea. Work-up at [facility] with Dr. Frias was unremarkable including upper endoscopy, HIDA scan and gallbladder ultrasound. Last CT scan was performed in 2014. She is currently asymptomatic and not following with [employer] but sees Dr. Aiken annually most recent Pap test was unremarkable. * She admits that if she eats high residue food she will feel bloated often has episodes of vomiting which occur maybe 3 times monthly she will feel bloated in her mid epigastric region have much of belching followed by vomiting of liquid material then concha diarrhea and symptoms harsh. She admits her last episode occurred after eating salad at [employer]. She denies any rectal bleeding or weight loss. Most recent labs including CBC, vitamin D level and chemistries were unremarkable other than a slightly low protein level. [facility] [place] [place] [id number] Work Phone: History of Present illness Narrative* The patient is being seen for the subsequent annual wellness visit. * Past Medical, Surgical and Family History: reviewed and updated in chart. * Medications and Supplements: Review of all medications by a prescribing practitioner or clinical pharmacist (such as prescriptions, OTCs, herbal therapies and supplements) documented in the medical record. * No, the patient is not using opioids. * Patient Self Assessment of Health Status: good. * Tobacco use: Non-User * Alcohol use: Non-User * Illicit drug use: Non-User * Current diet: well balanced diet and Heart Healthy Diet. * Exercise Frequency: regularly. * Depression/Suicide Screening: . * During the past 2 weeks, the patient has not felt down, depressed or hopeless. * During the past 2 weeks, the patient has not felt little interest or pleasure in doing things. * Hearing Impairment: none. * Cognitive Impairment: No cognitive impairment observed. * Bathing: performs independently. * Dressing: performs independently. * Walking: performs independently. * Managing Finances: performs independently. * Shopping: performs independently. * Managing Medications: performs independently. * Housework / Basic Home Maintenance: performs independently. * Falls Risk Screening:. KAMILA has not fallen in the last 6 months. * Home safety risk factors: none. * F/U ON HTN AND BONE DENSITY .PT TRIED TO MANAGE THE HTN WITH DIET AND EXERCISE WHICH DIDN'T HELP . MEDICARE WELLNESS EXAM. [facility] Work Phone: History of Present illness NarrativeF/U ON HTN AFTER STARTING THE LISINOPRIL. TOLERATES THE TX WELL. HAS NO COMPLAINTS.[facility] Work Phone: History of Present illness NarrativeF/U ON HTN AFTER STARTING THE LISINOPRIL. TOLERATES THE TX WELL. HAS NO COMPLAINTS.[facility] Work Phone: progress note Author Alejandrina Montes [facility] Note Date/Time December 18, 2024 9: 31am [facility] [address] [place] [address] OFFICE VISIT Date of Service: 12/18/24 MR#: [id number] Acct: [id number] Name: KAMILA PATEL Rep #: [id number] : 1955 Provider: CHLOE Gibbs Age/Sex: 69/F Location: [facility] Status: Signed Intake Intake Visit Reasons: 3 M FU Chief Complaint: diarrhea Allergies No Known Allergies Allergy (Unverified 12/18/24 08:56) Medications ?Medication ?Instructions ?Recorded ?Confirmed ?Type lisinopril 20 mg tablet 20 mg PO BID 02/09/24 History famotidine 20 mg tablet 20 mg PO QDAY 03/06/2412/18 History omeprazole 40 mg capsule,delayed 40 mg PO QDAY 4 12/18/24 History release cholestyramine 4 gram oral powder 4 g PO BID #60 ea 12/18/24 Rx for suspension in a packet (Cholestyramine Light) loperamide 2 mg capsule 2 mg PO Q6H PRN loose stool #45 09/18/24 12/18/24 Rx caps amlodipine 5 mg tablet 5 mg PO QDAY 12/18/24 History diphenoxylate-atropine 2.5 1 tab PO BID PRN diarrhea # 60 tabs 12/18/24 12/18/24 Rx mg-0.025 mg tablet (Lomotil) fenofibrate nanocrystallized 48 mg 48 mg PO QDAY 12/1812/18/24 History tablet Have you fallen in the past year?: No Nurse's Note: Pt reports change to Cholestyramine has not been helpful for diarrhea. She continues to take it as prescribed. No new sx. PFSH Medical History History of small bowel obstruction Fatigue Hypoproteinemia Hypomagnesemia Anemia B12 deficiency Chronic diarrhea Surgical History Hx of resection of small bowel HPI HPI Chief Complaint: diarrhea Details: KAMILA PATEL, is a 69 F who presents to the office today for follow-up. I established March 2024 with complaints of watery diarrhea since her smallbowel resection and partial colectomy in August 2023. Started on Colestipol 2 gramsdaily. OV 5.20.25; if she takes Imodium she will have a formed stool, always after she eats, Last OV 2.25 Continues loose stools on a daily basis. Having about 8 bm per day while taking colestipol 2 grams daily. Increased colestipol to 2 grams BID Stool 3.1.25; Calprotectin, elastase, Giardia, and c.dif all wnl OV 5.20.25 Pt continues to have loose stools daily. She has loose stools after eating. SHe endorse around 7 episodes of loose stool per day. She is taking colestipol 4 grams daily split into to doses. She has not noticed much Relief with this. She takes Imodium 3x a day as needed when she has a special occasionslike travel. Patient switched from colestipol to cholestyramine. OV 8..25 patient continues to have loose stools while on cholestyramine. She notes she had recent blood work done with her PCP and her triglycerides were high. Patient's PCP is wondering if this was related to the bile acid sequestrant's. Patient takes Imodium as needed when she has to go out. ROS Const Constitutional: No fatigue, fever(s) or weight change ENT ENT: No difficulty swallowing Gastro GI: Positive for diarrhea; No abdominal pain, belching, bloating, change in bowel habits, change in stool character, coffee ground emesis, constipation, cramping, heartburn, difficulty swallowing, feeling full early, excessive flatus, incontinent of stools, Vomiting blood/hematemesis, Blood in stool, loose stools, Black,tarry stools, nausea/dyspepsia, pain with swallowing, vomiting or other Musc Musculoskeletal: No joint pain Skin Skin: No yellowing of the eye or itchy eyes Psych Psychiatric: No anxiety and No depression Endo Endocrine: No fatigue or weight change Aller/Imm Allergy/Immunologic: No itchy eyes Ford/Lymp Hematologic/Lymphatic: No easy bleeding or easy bruising Exam Const General: cooperative, healthy appearing and comfortable Orientation: alert HENMT Head: normal to inspection Eyes General: appearance normal, both eyes and all related structures Neck Neck: normal visual inspection Chest Chest palpation & inspection: normal inspection of the chest Resp Effort & Inspection: normal respiratory effort GI Inspection: normal to inspection Rectal Exam: tenderness Assessment and Plan Assessment and Plan (1) Chronic diarrhea: Status: Chronic Plan: Kamila is a 69-year-old female patient with past medical history of small bowel resection and subsequently chronic loose stool. In the past patient has been oncolestipol which helps somewhat. Following her last appointment we trialed cholestyramine which had the same effect as colestipol. Recent lab work with her PCP showed increase in her triglycerides. This may be related to the bile acid sequestrant's. I recommended discontinuation as it may be raising her triglycerides and not helping with her loose stool. She will add in daily fiberand prescribed Lomotil for her to take as needed. - Discontinue cholestyramine and colestipol - Start fiber supplement - Lomotil as needed - Follow-up in 3 months Note: Studio speech recognition boiler tester software was used to create portions of this document. Sound-alike and misspelled words, as well as other boiler tester errors may be contained in the documentation. Medications: New diphenoxylate-atropine 2.5-0.025 mg (Lomotil) 1 TAB PO BID PRN 60 tabs 1RF diarrhea Coding Level of Care Code Off vis,est,level 3 Diagnoses Chronic diarrhea K52.9 Clinical Quality Measures Falls Risk Screening/Assistive Devices Have you fallen in the past year?: No 12/18/24 0944 <Electronically signed by Alejandrina CORONA> Date _ Alejandrina CORONA Cosigner Signature: Date (if applicable) CC: ~ [facility] Work Phone: Reason for referral (narrative)* Consultation (Routine) - Authorized Specialty Diagnoses / Procedures Referred By Contac t Referred To Contact Gastroenterology Diagnoses Chronic nausea Food intolerance Weight loss, non-intentional Monie Galarza MD [address] [place] [address] Referral ID Status Reason Start Date Expiration Date Visits Requested Visits Authorized [id number] Authorized Specialty Services Required 09/12/2023 09/11/2024 1 1 T [facility] Work Phone: Retfwb for referral (narrative)* Consultation (Routine) - Authorized Specialty Diagnoses / Procedures Referred By Contmayra t Referred To Contact Gastroenterology Diagnoses Chronic diarrhea S/P small bowel resection Monie Galarza MD [address] [place] [address] Referral ID Status Reason Start Date Expiration Date Visits Requested Visits Authorized [id number] Authorized Specialty Services Required 01/31/2024 01/30/2025 1 1 [facility] Work Phone: Reason for referral (narrative)No reason for referral information [facility]WLake[facility] Work Phone: Reason for visit Narrative* Imaging (Routine) - Authorized Specialty Diagnoses / Procedures Referred By Contac t Referred To Contact Radiology Diagnoses Post-menopausal Procedures XR DEXA bone density Monie Galarza MD [address] [place] [address] Phone: tel: fax: Referral ID Status Reason Start Date Expiration Date Visits Requested Visits Authorized [id number] Authorized Perform Procedure 4 03/27/2025 1 1 [facility] Work Phone: Reason for visit Narrative* Imaging (Routine) - Authorized Specialty Diagnoses / Procedures Referred By Triston t Referred To Contact Radiology Diagnoses Encounter for screening mammogram for breast cancer Procedures BI mammo bilateral screening tomosynthesis Monie Galarza MD [address] [place] [address] Phone: tel: fax: Referral ID Status Reason Start Date Expiration Date Visits Requested Visits Authorized [id number] Authorized Perform Procedure 4 03/27/2025 1 1 [facility] Work Phone: Reason for visit Narrative* Imaging (Routine) - Authorized Specialty Diagnoses / Procedures Referred By Triston t Referred To Contact Radiology Diagnoses Abnormal mammogram Procedures BI US breast limited left Monie Galarza MD [address] [place] [address] Phone: tel: fax: Referral ID Status Reason Start Date Expiration Date Visits Requested Visits Authorized [id number] Authorized Perform Procedure 05/07/2024 05/07/2025 1 1 [facility] Work Phone: Summary Purpose Family History Unknown Family Member Name Dates Details Family history of coronary a rtery disease: Mother(V17.3, Z82.49) Status:Active Family history of type 2 ksenia betes mellitus: Sister(V18.0, Z83.3) Status:Active Family history of hypertensi on: Father(V17.49, Z82.49) Status:Active Family history of leukemia: Father(V16.6, Z80.6) Status:Active Family history of myocardial infarction: Mother, Brother(V17.3, Z82.49) Status:Active Unknown Family Member Name Dates Details Family history of coronary a rtery disease: Mother(V17.3, Z82.49) Status:Active Family history of type 2 ksenia betes mellitus: Sister(V18.0, Z83.3) Status:Active Family history of hypertensi on: Father(V17.49, Z82.49) Status:Active Family history of leukemia: Father(V16.6, Z80.6) Status:Active Family history of myocardial infarction: Mother, Brother(V17.3, Z82.49) Status:Active Unknown Family Member Name Dates Details Family history of coronary a rtery disease: Mother(V17.3, Z82.49) Status:Active Family history of type 2 ksenia betes mellitus: Sister(V18.0, Z83.3) Status:Active Family history of hypertensi on: Father(V17.49, Z82.49) Status:Active Family history of leukemia: Father(V16.6, Z80.6) Status:Active Family history of myocardial infarction: Mother, Brother(V17.3, Z82.49) Status:Active Unknown Family Member Name Dates Details Family history of coronary a rtery disease: Mother(V17.3, Z82.49) Status:Active Family history of type 2 ksenia betes mellitus: Sister(V18.0, Z83.3) Status:Active Family history of hypertensi on: Father(V17.49, Z82.49) Status:Active Family history of leukemia: Father(V16.6, Z80.6) Status:Active Family history of myocardial infarction: Mother, Brother(V17.3, Z82.49) Status:Active Unknown Family Member Name Dates Details Family history of coronary a rtery disease: Mother(V17.3, Z82.49) Status:Active Family history of type 2 ksenia betes mellitus: Sister(V18.0, Z83.3) Status:Active Family history of hypertensi on: Father(V17.49, Z82.49) Status:Active Family history of leukemia: Father(V16.6, Z80.6) Status:Active Family history of myocardial infarction: Mother, Brother(V17.3, Z82.49) Status:Active Unknown Family Member Name Dates Details Family history of coronary a rtery disease: Mother(V17.3, Z82.49) Status:Active Family history of type 2 ksenia betes mellitus: Sister(V18.0, Z83.3) Status:Active Family history of hypertensi on: Father(V17.49, Z82.49) Status:Active Family history of leukemia: Father(V16.6, Z80.6) Status:Active Family history of myocardial infarction: Mother, Brother(V17.3, Z82.49) Status:Active Unknown Family Member Name Dates Details Family history of coronary a rtery disease: Mother(V17.3, Z82.49) Status:Active Family history of type 2 ksenia betes mellitus: Sister(V18.0, Z83.3) Status:Active Family history of hypertensi on: Father(V17.49, Z82.49) Status:Active Family history of leukemia: Father(V16.6, Z80.6) Status:Active Family history of myocardial infarction: Mother, Brother(V17.3, Z82.49) Status:Active Unknown Family Member Name Dates Details Family history of coronary a rtery disease: Mother(V17.3, Z82.49) Status:Active Family history of type 2 ksenia betes mellitus: Sister(V18.0, Z83.3) Status:Active Family history of hypertensi on: Father(V17.49, Z82.49) Status:Active Family history of leukemia: Father(V16.6, Z80.6) Status:Active Family history of myocardial infarction: Mother, Brother(V17.3, Z82.49) Status:Active Unknown Family Member Name Dates Details Family history of coronary a rtery disease: Mother(V17.3, Z82.49) Status:Active Family history of type 2 ksenia betes mellitus: Sister(V18.0, Z83.3) Status:Active Family history of hypertensi on: Father(V17.49, Z82.49) Status:Active Family history of leukemia: Father(V16.6, Z80.6) Status:Active Family history of myocardial infarction: Mother, Brother(V17.3, Z82.49) Status:Active Unknown Family Member Name Dates Details Family history of coronary a rtery disease: Mother(V17.3, Z82.49) Status:Active Family history of type 2 ksenia betes mellitus: Sister(V18.0, Z83.3) Status:Active Family history of hypertensi on: Father(V17.49, Z82.49) Status:Active Family history of leukemia: Father(V16.6, Z80.6) Status:Active Family history of myocardial infarction: Mother, Brother(V17.3, Z82.49) Status:Active Unknown Family Member Name Dates Details Family history of coronary a rtery disease: Mother(V17.3, Z82.49) Status:Active Family history of type 2 ksenia betes mellitus: Sister(V18.0, Z83.3) Status:Active Family history of hypertensi on: Father(V17.49, Z82.49) Status:Active Family history of leukemia: Father(V16.6, Z80.6) Status:Active Family history of myocardial infarction: Mother, Brother(V17.3, Z82.49) Status:Active Unknown Family Member Name Dates Details Family history of coronary a rtery disease: Mother(V17.3, Z82.49) Status:Active Family history of type 2 ksenia betes mellitus: Sister(V18.0, Z83.3) Status:Active Family history of hypertensi on: Father(V17.49, Z82.49) Status:Active Family history of leukemia: Father(V16.6, Z80.6) Status:Active Family history of myocardial infarction: Mother, Brother(V17.3, Z82.49) Status:Active Unknown Family Member Name Dates Details Family history of myocardial infarction: Mother, Brother(V17.3, Z82.49) Status:Active Family history of leukemia: Father(V16.6, Z80.6) Status:Active Family history of hypertensi on: Father(V17.49, Z82.49) Status:Active Family history of type 2 ksenia betes mellitus: Sister(V18.0, Z83.3) Status:Active Family history of coronary a rtery disease: Mother(V17.3, Z82.49) Status:Active Unknown Family Member Name Dates Details Family history of coronary a rtery disease: Mother(V17.3, Z82.49) Status:Active Family history of type 2 ksenia betes mellitus: Sister(V18.0, Z83.3) Status:Active Family history of hypertensi on: Father(V17.49, Z82.49) Status:Active Family history of leukemia: Father(V16.6, Z80.6) Status:Active Family history of myocardial infarction: Mother, Brother(V17.3, Z82.49) Status:Active Unknown Family Member Name Dates Details Family history of coronary a rtery disease: Mother(V17.3, Z82.49) Status:Active Family history of type 2 ksenia betes mellitus: Sister(V18.0, Z83.3) Status:Active Family history of hypertensi on: Father(V17.49, Z82.49) Status:Active Family history of leukemia: Father(V16.6, Z80.6) Status:Active Family history of myocardial infarction: Mother, Brother(V17.3, Z82.49) Status:Active Unknown Family Member Name Dates Details Family history of coronary a rtery disease: Mother(V17.3, Z82.49) Status:Active Family history of type 2 ksenia betes mellitus: Sister(V18.0, Z83.3) Status:Active Family history of hypertensi on: Father(V17.49, Z82.49) Status:Active Family history of leukemia: Father(V16.6, Z80.6) Status:Active Family history of myocardial infarction: Mother, Brother(V17.3, Z82.49) Status:Active Unknown Family Member Name Dates Details Family history of coronary a rtery disease: Mother(V17.3, Z82.49) Status:Active Family history of type 2 ksenia betes mellitus: Sister(V18.0, Z83.3) Status:Active Family history of hypertensi on: Father(V17.49, Z82.49) Status:Active Family history of leukemia: Father(V16.6, Z80.6) Status:Active Family history of myocardial infarction: Mother, Brother(V17.3, Z82.49) Status:Active Unknown Family Member Name Dates Details Family history of coronary a rtery disease: Mother(V17.3, Z82.49) Status:Active Family history of type 2 ksenia betes mellitus: Sister(V18.0, Z83.3) Status:Active Family history of hypertensi on: Father(V17.49, Z82.49) Status:Active Family history of leukemia: Father(V16.6, Z80.6) Status:Active Family history of myocardial infarction: Mother, Brother(V17.3, Z82.49) Status:Active Unknown Family Member Name Dates Details Family history of coronary a rtery disease: Mother(V17.3, Z82.49) Status:Active Family history of type 2 ksenia betes mellitus: Sister(V18.0, Z83.3) Status:Active Family history of hypertensi on: Father(V17.49, Z82.49) Status:Active Family history of leukemia: Father(V16.6, Z80.6) Status:Active Family history of myocardial infarction: Mother, Brother(V17.3, Z82.49) Status:Active Advance Directives Documents on File Type Date Recorded Patient Voice Studies Director Expl anation Living Will 10/15/2021 Documents on File Type Date Recorded Patient Voice Studies Director Expl anation Living Will 10/15/2021 Date Activated Date Inactivated Comments 09/17/2023 2:21 PM Question Answer Comments Plan of Care: Code Status Discussion Completed Decision Maker: Patient living will Date Activated Date Inactivated Comments 09/23/2023 2:14 PM Question Answer Comments Plan of Care: Code Status Discussion Not Compl eted Decision Maker: Provider Rationale: Patient lacks capaci ty/Care Team unable to identify or reach proxy Date Activated Date Inactivated Comments 09/21/2023 4:52 AM 09/23/2023 2:14 PM Question Answer Comments Plan of Care: Code Status Discussion Completed Decision Maker: Patient Date Activated Date Inactivated Comments 09/17/2023 2:21 PM 09/21/2023 4:52 AM Question Answer Comments Plan of Care: Code Status Discussion Completed Decision Maker: Patient living will Date Activated Date Inactivated Comments 09/23/2023 2:14 PM Question Answer Comments Plan of Care: Code Status Discussion Not Compl eted Decision Maker: Provider Rationale: Patient lacks capaci ty/Care Team unable to identify or reach proxy Date Activated Date Inactivated Comments 09/21/2023 4:52 AM 09/23/2023 2:14 PM Question Answer Comments Plan of Care: Code Status Discussion Completed Decision Maker: Patient Date Activated Date Inactivated Comments 09/17/2023 2:21 PM 09/21/2023 4:52 AM Question Answer Comments Plan of Care: Code Status Discussion Completed Decision Maker: Patient living will Healthcare Agents on File Name Relationship Healthcare Agent Relationship Communication Dell Patel Spouse Health Care Agent [email or web address] Agents on File Name Relationship Healthcare Agent Relationship Communication Dell Patel Spouse Health Care Agent [email or web address] Agents on File Name Relationship Healthcare Agent Relationship Communication Dell Patel Spouse Health Care Agent [email or web address] Agents on File Name Relationship Healthcare Agent Relationship Communication Dell Patel Spouse Health Care Agent [email or web address] Agents on File Name Relationship Healthcare Agent Relationship Communication Dell Patel Spouse Health Care Agent [email or web address] Agents on File Name Relationship Healthcare Agent Relationship Communication Dell Patel Spouse Health Care Agent [email or web address] Agents on File Name Relationship Healthcare Agent Relationship Communication Dell Patel Spouse Health Care Agent [email or web address] Agents on File Name Relationship Healthcare Agent Relationship Communication Dell Patel Spouse Health Care Agent [email or web address] Agents on File Name Relationship Healthcare Agent Relationship Communication Dell Patel Spouse Health Care Agent [email or web address] Chief Complaint ESTABLISH NEW - TRANSFER DR. ORTIZ. C/O EPIGASTRIC PAIN OFF/ON WITH BLOATING AND EPISODES OF NAUSEA AND VOMITING. THIS HAS BEEN ONGOING SINCE APPROXIMATELY 2014. SHE SAW GI SPECIALIST AT [facility] WHEN SYMPTOMS BEGAN AND HAD MANY TEST DONE WHICH ALL CAME BACK WNL.New Patient is here for her yearly exam and pap test. Hysterectomy in 2011 d/t endometrial and cervical cancer. Patient does self breast exams and has no concerns at this time.3 WEEK FU WITH LABS. PATIENT HAS NO CONCERNS.NPV in office today for nausea and vomiting, epigastric pain patient is taking Prilosec in the pastpatient is currently using Tums and Pepto Bismol states that PPI's have not helped in the past. Previous GI was Dr. Corrales at [facility] in [place] prior EGD in 2014, Ct scan, Ultrasound. Last colonoscopy with [facility] in 2012. Prior history of cervical and endometrial cancer. Patient had internal and external radiation in 2011.NPV in office today for nausea and vomiting, epigastric pain patient is taking Prilosec in the pastpatient is currently using Tums and Pepto Bismol states that PPI's have not helped in the past. Previous GI was Dr. Corrales at [facility] in [place] prior EGD in 2014, Ct scan, Ultrasound. Last colonoscopy with [facility] in 2012. Prior history of cervical and endometrial cancer. Patient had internal and external radiation in 2011.Pt here for 2022 [facility] visit. States her blood pressure has been running in the 160's/ 90's consistently.2 WEEK F/U- STARTED ON LISINOPRIL FOR BP2 WEEK F/U- STARTED ON LISINOPRIL FOR BP Reason for Referral Specialty Diagnoses / Procedures Referred By Contact Referred To Contact Gastroenterology Diagnoses Gastroesophageal reflux disease without esophagitis Abdominal bloating Chronic nausea Procedures EGD DC ESOPHAGOGASTRODUODENOSCOPY TRANSORAL DIAGNOSTIC DC EGD TRANSORAL BIOPSY SINGLE/MULTIPLE Monie Galarza MD [address] [place] [address] Referral ID Status Reason Start Date Expiration Date V isits Requested Visits Authorized [id number] Pending Review 04/13/2023 04/12/2024 1 1 Specialty Diagnoses / Procedures Referred By Contac t Referred To Contact Gastroenterology Diagnoses Chronic diarrhea Procedures Colonoscopy Screening; Average Risk Patient DC COLONOSCOPY FLX DX W/COLLJ SPEC WHEN PFRMD DC COLON CA SCRN NOT HI RSK IND DC COLORECTAL SCRN; HI RISK IND DC COLONOSCOPY W/BIOPSY SINGLE/MULTIPLE DC COLSC FLX W/RMVL OF TUMOR POLYP LESION SNARE TQ DC COLSC FLX W/REMOVAL LESION BY HOT BX FORCEPS Monie Galarza MD [address] [place] [address] Referral ID Status Reason Start Date Expiration Date V isits Requested Visits Authorized [id number] Pending Review 04/13/2023 04/12/2024 1 1 Specialty Diagnoses / Procedures Referred By Contact Referred To Contact Gastroenterology Diagnoses Gastroesophageal reflux disease without esophagitis Abdominal bloating Chronic nausea Procedures EGD DC ESOPHAGOGASTRODUODENOSCOPY TRANSORAL DIAGNOSTIC DC EGD TRANSORAL BIOPSY SINGLE/MULTIPLE Monie Galarza MD [address] [place] [address] [id number] [address] [phone] Referral ID Status Reason Start Date Expiration Date V isits Requested Visits Authorized [id number] Authorized 04/13/2023 04/12/2024 1 1 Specialty Diagnoses / Procedures Referred By Contac t Referred To Contact Gastroenterology Diagnoses Chronic diarrhea Procedures Colonoscopy Screening; Average Risk Patient DC COLONOSCOPY FLX DX W/COLLJ SPEC WHEN PFRMD DC COLON CA SCRN NOT HI RSK IND DC COLORECTAL SCRN; HI RISK IND DC COLONOSCOPY W/BIOPSY SINGLE/MULTIPLE DC COLSC FLX W/RMVL OF TUMOR POLYP LESION SNARE TQ DC COLSC FLX W/REMOVAL LESION BY HOT BX FORCEPS Monie Galarza MD [address] [place] [address] [facility] [id number] [address] [place] [address] [phone] Referral ID Status Reason Start Date Expiration Date V isits Requested Visits Authorized [id number] Authorized 04/13/2023 04/12/2024 1 1 Specialty Diagnoses / Procedures Referred By Contac t Referred To Contact Diagnoses Nausea and vomiting, unspecified vomiting type Monie Galarza MD [address] [place] [address] Referral ID Status Reason Start Date Expiration Date V isits Requested Visits Authorized [id number] Pending Review 1 1 Chief Complaint and Reason for Visit Chief Complaint Admit Date 3 M FU June 12, 2024 9:22am STOOL DROPOFF June 30, 2024 8:09 am Reason for Visit Admit Date Chronic diarrhea June 12, 2024 9:22am Chief Complaint Admit Date 3 M FU June 12, 2024 9:22am STOOL DROPOFF June 30, 2024 8:09 am 3 M FU September 18, 2024 9:16a m Chief Complaint Admit Date 3 M FU September 18, 2024 9:16a m 3 M FU December 18, 2024 8: 49am Reason for Visit Admit Date Chronic diarrhea September 18, 2024 9:16a m Chronic diarrhea December 18, 2024 8: 49am Additional Source Comments INFORMATION SOURCE (unrecogn ized section and content) DATE CREATED AUTHOR 10/26/2017 [facility] DATE CREATED AUTHOR AUTHOR'S ORGANIZ ATION 12/01/2017 [facility] DATE CREATED AUTHOR AUTHOR'S ORGANIZ ATION 12/28/2017 [facility] DATE CREATED AUTHOR AUTHOR'S ORGANIZ ATION 05/19/2022 [facility] DATE CREATED AUTHOR AUTHOR'S ORGANIZ ATION 10/10/2022 [facility] DATE CREATED AUTHOR AUTHOR'S ORGANIZ ATION 10/15/2023 [facility] DATE CREATED AUTHOR AUTHOR'S ORGANIZ ATION 05/13/2024 [facility] DATE CREATED AUTHOR AUTHOR'S ORGANIZ ATION 08/17/2024 [facility] DATE CREATED AUTHOR AUTHOR'S ORGANIZ ATION 11/19/2024 [facility] DATE CREATED AUTHOR AUTHOR'S ORGANIZ ATION 12/19/2024 [facility] DATE CREATED AUTHOR AUTHOR'S ORGANIZ ATION 03/11/2025 [facility] Reason for Visit (unrecogniz ed section and content) Reason Comments Follow-up 1 MO BP CHECK Specialty Diagnoses / Procedures Referred By Contac t Referred To Contact Diagnoses B12 deficiency Monie Galarza MD [address] [place] [address] Phone: tel: fax: Referral ID Status Reason Start Date Expiration Date V isits Requested Visits Authorized [id number] Pending Review 03/11/2025 03/11/2026 1 1 Reason Comments Follow-up 3 WEEK FU Specialty Diagnoses / Procedures Referred By Contac t Referred To Contact Diagnoses B12 deficiency Monie Galarza MD [address] [place] [address] Phone: tel: fax: Referral ID Status Reason Start Date Expiration Date V isits Requested Visits Authorized [id number] Pending Review 02/11/2025 02/11/2026 1 1 Reason Comments Follow-up 2 MO F/U Referral ID Status Reason Start Date Expiration Date V isits Requested Visits Authorized [id number] Pending Review 01/21/2025 01/21/2026 1 1 Reason Comments Follow-up One month follow up with blood pressure check Referral ID Status Reason Start Date Expiration Date V isits Requested Visits Authorized [id number] Pending Review 05/23/2024 05/23/2025 1 1 Reason Comments Follow-up 6 MONTH FOLLOW UP [facility] STATES HER BP HAS BEEN ON THE HIGHER SIDE 155 TOP NUMBERS Specialty Diagnoses / Procedures Referred By Contac t Referred To Contact Diagnoses Noninfective gastroenteritis and colitis, unspecified Abdominal distension (gaseous) Nausea Procedures DC ESOPHAGOGASTRODUODENOSCOPY TRANSORAL DIAGNOSTIC DC EGD TRANSORAL BIOPSY SINGLE/MULTIPLE DC COLONOSCOPY W/BIOPSY SINGLE/MULTIPLE DC COLONOSCOPY FLX DX W/COLLJ SPEC WHEN PFRMD DC COLSC FLX W/RMVL OF TUMOR POLYP LESION SNARE TQ DC COLSC FLX W/REMOVAL LESION BY HOT BX FORCEPS [id number] [address] [facility] [address] [place] [address] [phone] Referral ID Status Reason Start Date Expiration Date Visits Re quested Visits Authorized [id number] 1 1 Reason Comments Follow-up FOLLOW UP EGD/COLONO SCOPY C/O NAUSEA,HAND NUMBNESS ,GI PAIN AND NOT EATING REALLY SINCE May.STATES SHE FEELS LIKE SINCE HER PROCEDURES HER VOMITING HAS GOTTEN WORSE Medicare Annual Wellness Visit Subsequen t Reason Comments Follow-up 1 WEEK F/U, NAUSEA H ASN'T BEEN BAD LATELY, FEELS A LOT BETTER. Reason Comments Follow-up 2 wk F/U, GI check Reason Comments Follow-up 6 WEEK FOLLOW UP- DI D DO GLUTEN FREE DIET STRICTLY FOR 6 WEEKS AND STILL HAVING THE SYMPTOMS as BEFORE. Reason Comments Follow-up 3 WK F/U Reason Comments Abdominal Pain Pt comes in for abdo lyn pain. Pt states that she has been having BM issues for a while now. Pt states that starting 4 days ago she started with vomiting, nausea, bloating, difficulty with urination and very small bms. Pt states that this am she had muscle cramping in bilateral hands. Specialty Diagnoses / Procedures Referred By Triston t Referred To Contact Diagnoses Small bowel obstruction (Multi) Nausea and vomiting, unspecified [place] [address] [place] [address] [address] Referral ID Status Reason Start Date Expiration Date Visits Re quested Visits Authorized [id number] 1 1 Reason Comments Weakness, Gen Pt comes in for gene ralized weakness. 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 Pt states the past couple days she has been feeling nauseous, vomiting, diarrhea, weakness, light headedness and fatigue. Pt states she is unable to keep anything down. Denies fevers. Pt states her incisions are healing well. Reason Comments Abdominal Pain Specialty Diagnoses / Procedures Referred By Contac t Referred To Contact Diagnoses Diarrhea Abdominal Pain Procedures [place] [address] [place] [address] [facility] [address] [place] [address] Referral ID Status Reason Start Date Expiration Date Visits Re quested Visits Authorized [id number] 1 1 Reason Comments Hospital Follow-up Still having fatigue and frequent diarrhea but is feeling better Reason Comments Follow-up 1 MO F/U Reason Comments Follow-up 1 MONTH FOLLOW UP + RECENT LABS DONE HAS SEEN GASTRO Specialty Diagnoses / Procedures Referred By Triston t Referred To Contact Diagnoses B12 deficiency Monie Galarza MD [address] [place] [address] Phone: tel: fax: Referral ID Status Reason Start Date Expiration Date V isits Requested Visits Authorized [id number] Pending Review 03/27/2024 03/27/2025 1 1 Reason Comments Follow-up 1 MONTH F/U LABS. C/ O DIARRHEA REMAINS OFF/ON. Reason Comments Follow-up 3 WEEK F/U LABS + B/ P CHECK. PATIENT HAS ADAPTED TO A GLUTEN FREE DIET BUT STILL HAS DIARRHEA - NO CHANGE. Reason Comments Follow-up 2-3 wk bp check Referral ID Status Reason Start Date Expiration Date V isits Requested Visits Authorized [id number] Pending Review 04/17/2024 04/17/2025 1 1 Reason Comments Medicare Annual Wellness Visit Subsequen t LABS & MEDICARE WELLNESS Specialty Diagnoses / Procedures Referred By Contmayra t Referred To Contact Diagnoses B12 deficiency Monie Galarza MD [address] [place] [address] Phone: tel: fax: Referral ID Status Reason Start Date Expiration Date V isits Requested Visits Authorized [id number] Pending Review 11/20/2024 11/20/2025 1 1 Reason Comments Follow-up 1 MO BP CHECK Referral ID Status Reason Start Date Expiration Date V isits Requested Visits Authorized [id number] Pending Review 03/11/2025 03/11/2026 1 1 Care Teams (unrecognized sec tion and content) Planned Giving Officer Relationship Specialty Start Date End Date Monie Galarza MD [address] [place] [address] PCP - General 09/06/21 Monie Galarza MD [address] [place] [address] PCP - [place] Medicare Advantage PCP 05/02/22 Planned Giving Officer Relationship Specialty Start Date End Date Monie Galarza MD [address] [place] [address] PCP - General 09/06/21 Moine Galarza MD [address] [place] [address] PCP - [place] Medicare Advantage PCP 05/02/22 Planned Giving Officer Relationship Specialty Start Date End Date Monie Galarza MD [address] [place] [address] PCP - General 09/06/21 Monie Galarza MD [address] [place] [address] PCP - [place] Medicare Advantage PCP 05/02/22 Planned Giving Officer Relationship Specialty Start Date End Date oMnie Galarza MD [address] [place] [address] PCP - General 09/06/21 Monie Galarza MD [address] [place] [address] PCP - [place] Medicare Advantage PCP 05/02/22 Planned Giving Officer Relationship Specialty Start Date End Date Monie Galarza MD [address] [place] [address] PCP - General 09/06/21 Monie Galarza MD [address] [place] [address] PCP - [place] Medicare Advantage PCP 05/02/22 Planned Giving Officer Relationship Specialty Start Date End Date Monie Galarza MD [address] [place] [address] PCP - General 09/06/21 Monie Galarza MD [address] [place] [address] PCP - [place] Medicare Advantage PCP 05/02/22 Planned Giving Officer Relationship Specialty Start Date End Date Monie Galarza MD [address] [place] [address] PCP - General 09/06/21 Monie Galarza MD [address] [place] [address] PCP - [place] Medicare Advantage PCP 05/02/22 Planned Giving Officer Relationship Specialty Start Date End Date Monie Galarza MD [address] [place] [address] PCP - General 09/06/21 Monie Galarza MD [address] [place] [address] PCP - [place] Medicare Advantage PCP 05/02/22 Wendi Fontana CMA Sole RufferPatient Attendant 09/30/23 Planned Giving Officer Relationship Specialty Start Date End Date Monie Galarza MD [address] [place] [address] PCP - General 09/06/21 Monie Galarza MD [address] [place] [address] PCP - [place] Medicare Advantage PCP 05/02/22 Wendi Fontana [facility] Sole RufferPatient Attendant 09/30/23 10/05/23 Planned Giving Officer Relationship Specialty Start Date End Date Monie Galarza MD [address] [place] [address] PCP - General 09/06/21 Monie Galarza MD [address] [place] [address] PCP - [place] Medicare Advantage PCP 05/02/22 Wendi Fontana [facility] Sole RufferPatient Attendant 10/07/23 Planned Giving Officer Relationship Specialty Start Date End Date Monie Galarza MD [address] [place] [address] PCP - General 09/06/21 Monie Galarza MD [address] [place] [address] PCP - [place] Medicare Advantage PCP 05/02/22 Planned Giving Officer Relationship Specialty Start Date End Date Monie Galarza MD [address] [place] [address] PCP - General 09/06/21 Monie Galarza MD [address] [place] [address] PCP - [place] Medicare Advantage PCP 05/02/22 Planned Giving Officer Relationship Specialty Start Date End Date Monie Galarza MD [address] [place] [address] PCP - General 09/06/21 Monie Galarza MD [address] [place] [address] PCP - [place] Medicare Advantage PCP 05/02/22 Wendi Fontana CMA Sole RufferPatient Attendant 10/07/23 Planned Giving Officer Relationship Specialty Start Date End Date Monie Galarza MD [address] [place] [address] PCP - General 09/06/21 Monie Galarza MD [address] [place] [address] PCP - [employer] Medicare Advantage PCP 05/02/22 Planned Giving Officer Relationship Specialty Start Date End Date Monie Galarza MD [address] [place] [address] PCP - General 09/06/21 Monie Galarza MD [address] [place] [address] PCP - [employer] Medicare Advantage PCP 05/02/22 Planned Giving Officer Relationship Specialty Start Date End Date Monie Galarza MD [address] [place] [address] PCP - General 09/06/21 Monie Galarza MD [address] [place] [address] PCP - [place] Medicare Advantage PCP 05/02/22 Planned Giving Officer Relationship Specialty Start Date End Date Mnoie Galarza MD [address] [place] [address] PCP - General 09/06/21 Monie Galarza MD [address] [place] [address] PCP - [employer] Medicare Advantage PCP 05/02/22 Team Status: Active Member Role Status Dates Dr. Monie Galarza MD Primary Care Provider Active Team Status: Inactive Member Role Status Dates CHLOE Gibbs Attending Provider Active Start: June 12, 2024 End: June 12, 2024 Team Status: Inactive Member Role Status Dates Dr. Monie Galarza MD Primary Care Provider Active Start: June 30, 2024 End: June 30, 2024 CHLOE Gibbs Attending Provider Active Start: June 30, 2024 End: June 30, 2024 CHLOE Gibbs Referring Provider Active Start: June 30, 2024 End: June 30, 2024 Team Status: Inactive Member Role Status Dates CHLOE Gibbs Attending Provider Active Start: September 18, 2024 End: September 18, 2024 Dr. Monie Galarza MD Primary Care Provider Active Start: September 18, 2024 End: September 18, 2024 Dr. Monie Galarza MD Referring Provider Active Start: September 18, 2024 End: September 18, 2024 Team Status: Active Member Role/Relationship Status Dates Dr. Monie Galarza MD Primary Care Provider Active Team Status: Inactive Member Role/Relationship Status Dates CHLOE Gibbs Attending Provider Active Start: September 18, 2024 End: September 18, 2024 Dr. Monie Galarza MD Primary Care Provider Active Start: September 18, 2024 End: September 18, 2024 Dr. Monie Galarza MD Referring Provider Active Start: September 18, 2024 End: September 18, 2024 Team Status: Inactive Member Role/Relationship Status Dates Dr. Monie Galarza MD Primary Care Provider Active Start: December 18, 2024 End: December 18, 2024 Dr. Monie Galarza MD Referring Provider Active Start: December 18, 2024 End: December 18, 2024 CHLOE Gibbs Attending Provider Active Start: December 18, 2024 End: December 18, 2024 Planned Giving Officer Relationship Specialty Start Date End Date Monie Galarza MD [address] [place] [address] PCP - General 09/06/21 Monie Galarza MD [address] [place] [address] PCP - [employer] Advantage PCP 05/02/22 Planned Giving Officer Relationship Specialty Start Date End Date Monie Galarza MD [address] [place] [address] PCP - General 09/06/21 Monie Galarza MD [address] [place] [address] PCP - [employer] Medicare Advantage PCP 05/02/22 Scheduled Active and Recently Administ ered Medications (unrecognized section and content) Medication Order 09/19/2023 09/20/2023 09/21/2023 diatrizoate clarissa-diatrizoat sod (Gastrografin 37% organic bound iodine) solution 330 mL (COMPLETED) 330 mL, nasogastric tube, Once, On 09/19/23 at 1245, For 1 dose 1245 (Given - Provider: Slava Millard, RT) esomeprazole (NexIUM) suspension 40 mg 40 mg, nasogastric tube, Daily before breakfast, First dose on 09/18/23 at 0700, Add 15 mL water to catheter-tipped syringe, add granules from packet. Shake and let thicken. Administer through NG tube within 30 minutes. Refill with 15 mL of water, shake and flush NG tube. 1320 (Given - Provider: Jie Alvarado RN) 0906 (Given - Provider: Jie Alvarado RN) 0800 (Due - Provider: Carey Crane RN) famotidine PF (Pepcid) injection 20 mg 20 mg, intravenous, Every 24 hours scheduled, First dose on Tue09/18/23 at 0900 1123 (Given - Provider: Jie Alvarado RN) 0906 (Given - Provider: Jie Alvarado RN) 0900 (Due) fat emulsion-plant based (Intralipid) 20 % infusion 50 g 50 g (250 mL), intravenous, at 20.8 mL/hr, Administer over 12 Hours, Daily Lipids, First dose on 09/18/23 at 2000, Use a 1.2 micron filter. 2024 (New Bag - Provider: Carey Crane RN)2100 (Rate/Dose Verify - Provider: Carey Crane RN)2200 (Rate/Dose Verify - Provider: Carey Crane RN)2300 (Rate/Dose Verify - Provider: Carey Crane RN) 0000 (Rate/Dose Verify - Provider: Carey Crane RN)0100 (Rate/Dose Verify - Provider: Carey Crane RN)0200 (Rate/Dose Verify - Provider: Carey Crane RN)0300 (Rate/Dose Verify - Provider: Carey Crane RN)0400 (Rate/Dose Verify - Provider: Carey Crane RN)0500 (Rate/Dose Verify - Provider: Carey Crane RN)0600 (Rate/Dose Verify - Provider: Carey Crane RN)0825 (Stopped - Provider: Jie Alvarado RN)2023 (New Bag - Provider: Carey Crane RN)2100 (Rate/Dose Verify - Provider: Carey Crane RN)2200 (Rate/Dose Verify - Provider: Carey Crane RN)2303 (Rate/Dose Verify - Provider: Carey Crane RN) 0000 (Rate/Dose Verify - Provider: Carey Crane RN)0100 (Rate/Dose Verify - Provider: Carey Crane RN)0200 (Rate/Dose Verify - Provider: Carey Crane RN)0823 (Due: Stopped - Provider: Carey Crane RN)2000 (Due) haloperidol lactate (Haldol) injection 2 mg (COMPLETED) 2 mg, intravenous, Once, On 09/19/23 at 2300, For 1 dose, Patients receiving IV haloperidol should be on continuous cardiac monitoring. 2314 (Given - Provider: Carey Crane RN) heparin (porcine) injection 5,000 Units 5,000 Units, subcutaneous, Every 8 hours, First dose on 09/17/23 at 1425 0629 (Given - Provider: Kiersten Henson RN)1324 (Given - Provider: Jie Alvarado RN)2213 (Given - Provider: Carey Crane RN) 0543 (Given - Provider: Carey Crane RN)1423 (Given - Provider: Jie Alvarado RN)2129 (Given - Provider: Caery Crane RN) 0625 (Due)1425 (Due)2225 (Due) insulin lispro (HumaLOG) injection 0-5 Units (CANCELED) 0-5 Units, subcutaneous, Every 4 hours, First dose on 09/18/23 at 1045, Insulin Lispro Corrective Scale #1 Hypoglycemia protocol Call LIP unit(s) if Blood Glucose is between 0 - 70 mg/dL 0 unit(s) if Blood glucose is between 71-150 1 unit(s) if Blood glucose is between 151-200 2 unit(s) if Blood glucose is between 201-250 3 unit(s) if Blood glucose is between 251-300 4 unit(s) if Blood glucose is between 301-350 5 unit(s) if Blood glucose is between 351-400 Notify provider unit(s) if Blood Glucose is greater than 400 mg/dL 0400 (Not Given - Provider: Kiersten Henson RN - Reason: Other - Comment: request Rx to floor from supervisor tumbling and rolling)0505 (Given - Provider: Kiersten Henson RN)0800 (Not Given - Provider: Jie Alvarado RN - Reason: Patient not available)1200 (Not Given - Provider: Jie Alvarado RN - Reason: See Provider Order - Comment: hold per brinda velasquez) insulin lispro (HumaLOG) injection 0-5 Units 0-5 Units, subcutaneous, Every 6 hours, First dose (after last modification) on Tue09/19/23 at 1800, For 3 days, Insulin Lispro Corrective Scale #1 Hypoglycemia protocol Call LIP unit(s) if Blood Glucose is between 0 - 70 mg/dL 0 unit(s) if Blood glucose is between 71-150 1 unit(s) if Blood glucose is between 151-200 2 unit(s) if Blood glucose is between 201-250 3 unit(s) if Blood glucose is between 251-300 4 unit(s) if Blood glucose is between 301-350 5 unit(s) if Blood glucose is between 351-400 Notify provider unit(s) if Blood Glucose is greater than 400 mg/dL 1800 (Not Given - Provider: Jie Alvarado RN - Reason: See Provider Order)2314 (Given - Provider: Carey Crane RN) 0543 (Given - Provider: Carey Crane RN - Comment: blood sugar 154)1200 (Not Given - Provider: Jie Alvarado RN - Reason: See Provider Order - Comment: bs 144)1800 (Not Given - Provider: Jie Alvarado RN - Reason: See Provider Order - Comment: bs 129) 0000 (Not Given - Provider: Carey Crane RN - Reason: Other - Comment: blood sugar 134)0600 (Due)1200 (Due)1800 (Due) lisinopril tablet 10 mg 10 mg, oral, Daily, First dose on Tue09/18/23 at 0900 1320 (Given - Provider: Jie Alvarado RN) 0906 (Given - Provider: Jie Alvarado RN) 0900 (Due) sodium phosphate 15 mmol in sodium chloride 0.9% 250 mL IV (COMPLETED) 15 mmol, intravenous, at 62.5 mL/hr, Administer over 4 Hours, Once, On Tue09/19/23 at 1345, For 1 dose 1428 (New Bag - Provider: Jie Alvarado RN)1828 (Stopped - Provider: Jie Alvarado RN) thiamine (Vitamin B1) injection 100 mg 100 mg, intravenous, Daily, First dose (after last modification) on Tue09/19/23 at 1445, For 7 days 1455 (Given - Provider: Jie Alvarado RN) 0906 (Given - Provider: Jie Alvarado RN) 0900 (Due) Continuous Medication Order 09/19/2023 09/20/2023 09/21/2023 Adult Clinimix Parenteral Nutrition Continuous () 100 mL/hr, intravenous, Administer over 24 Hours, Daily PN, Starting on Tue09/19/23 at 2000, For 1 day, Use a 0.22 micron filter., Indication: Bowel obstruction 1835 (New Bag - Provider: Jie Alvarado RN)1900 (Rate/Dose Verify - Provider: Carey Crane RN)2000 (Rate/Dose Verify - Provider: Carey Crane RN)2100 (Rate/Dose Verify - Provider: Carey Crane RN)2200 (Rate/Dose Verify - Provider: Carey Crane RN)2300 (Rate/Dose Verify - Provider: Carey Crane RN) 0000 (Rate/Dose Verify - Provider: Carey Crane RN)0100 (Rate/Dose Verify - Provider: Carey Crane RN)0200 (Rate/Dose Verify - Provider: Carey Crane RN)0300 (Rate/Dose Verify - Provider: Carey Crane RN)0400 (Rate/Dose Verify - Provider: Carey Crane RN)0500 (Rate/Dose Verify - Provider: Carey Crane RN)0600 (Rate/Dose Verify - Provider: Carey Crane RN)0910 (Rate/Dose Change - Provider: Jie Alvarado RN)1753 (Rate/Dose Verify - Provider: Jie Alvarado RN) PRN Medication Order 09/19/2023 09/20/2023 09/21/2023 acetaminophen (Tylenol) oral liquid 650 mg(Linked Group 1) 650 mg, nasogastric tube, Every 4 hours PRN, fever (temp greater than 38.0 C), greater than or equal to 38 C, Starting on 09/17/23 at 1415 acetaminophen (Tylenol) oral liquid 650 mg(Linked Group 2) 650 mg, oral, Every 4 hours PRN, pain mild (1-3), first line, Starting on 09/17/23 at 1415, Give oral liquid per feeding tube if present. acetaminophen (Tylenol) suppository 650 mg(Linked Group 1) 650 mg, rectal, Every 4 hours PRN, fever (temp greater than 38.0 C), greater than or equal to 38 C, Starting on 09/17/23 at 1415, If ordered PRN for pain, nurse is permitted to administer this medication for higher pain scores based on patient preference? Yes acetaminophen (Tylenol) suppository 650 mg(Linked Group 2) 650 mg, rectal, Every 4 hours PRN, pain mild (1-3), first line, Starting on 09/17/23 at 1415, Give rectally if unable to administer by mouth or feeding tube., If ordered PRN for pain, nurse is permitted to administer this medication for higher pain scores based on patient preference? Yes acetaminophen (Tylenol) tablet 650 mg(Linked Group 1) 650 mg, oral, Every 4 hours PRN, fever (temp greater than 38.0 C), greater than or equal to 38 C, Starting on 09/17/23 at 1415, If ordered PRN for pain, nurse is permitted to administer this medication for higher pain scores based on patient preference? Yes acetaminophen (Tylenol) tablet 650 mg(Linked Group 2) 650 mg, oral, Every 4 hours PRN, pain mild (1-3), first line, Starting on 09/17/23 at 1415, If ordered PRN for pain, nurse is permitted to administer this medication for higher pain scores based on patient preference? Yes dextrose 50 % injection 25 g 25 g, intravenous, Every 15 min PRN, For blood glucose less than or equal to 40 mg/dL, Starting on 09/18/23 at 1022, May repeat until blood glucose level reaches 100 mg/dL or greater. Push 2 - 3 mL/minute if patient has secure IV access. glucagon (Glucagen) injection 1 mg 1 mg, intramuscular, Every 15 min PRN, low blood sugar - see comments, For blood glucose less than or equal to 40 mg/dL and no IV access, Starting on 09/18/23 at 1022, Give until blood glucose is 100 mg/dL or greater. If patient DOES NOT HAVE secure IV access & patient is unconscious, NPO or is unable to eat or drink. ondansetron (Zofran) injection 4 mg (CANCELED) 4 mg, intravenous, Every 8 hours PRN, nausea/vomiting, first line, Starting on 09/17/23 at 1419, 1st Line. Give IV if patient is unable to take orally. If inadequate response within 60 minutes, proceed to next-line agent for same PRN reason or contact provider if no further options ordered. When administering via IV Push, administer over 3-5 minutes. 0215 (Given - Provider: Kiersten Henson RN)1122 (Given - Provider: Jie Alvarado RN)2027 (Given - Provider: Carey Crane RN) ondansetron (Zofran) injection 4 mg(Linked Group 3) 4 mg, intravenous, Every 4 hours PRN, nausea/vomiting, first line, Starting on 09/19/23 at 2235, 1st Line. Give IV if patient is unable to take orally. If inadequate response within 60 minutes, proceed to next-line agent for same PRN reason or contact provider if no further options ordered. When administering via IV Push, administer over 3-5 minutes. 0228 (Given - Provid er: Carey Crane RN) ondansetron ODT (Zofran-ODT) disintegrating tablet 4 mg(Linked Group 3) 4 mg, oral, Every 8 hours PRN, nausea/vomiting, first line, Starting on 09/19/23 at 2235, 1st Line. Use oral route first, if possible. If inadequate response within 60 minutes, proceed to next-line agent for same PRN reason or contact provider if no further options ordered. 0228 (See Alternativ e - Provider: Carey Crane RN) phenoL (Chloraseptic) 1.4 % mouth/throat spray 1 spray 1 spray, Mouth/Throat, Every 2 hour PRN, sore throat, Starting on 09/17/23 at 2036, Instruct patient to spit out after 15 seconds. No Frequency Medication Order 09/19/2023 09/20/2023 09/21/2023 sodium chloride (PF) 0.9% solution - [employer] Override Pull (COMPLETED) Starting on Tue09/19/23 at 1120, For 1 dose, Created by cabinet override 1124 (Given - Provider: Jie Alvarado RN) sodium chloride (PF) 0.9% solution - [employer] Override Pull (COMPLETED) Starting on Tue09/20/23 at 0854, For 1 dose, Created by cabinet override 0906 (Given - Provider: Jie Alvarado RN) Linked Groups Order Group 1: acetaminophen (Tylenol) tablet 650 mgJump to med 650 mg, oral, Every 4 hours PRN, fever (temp greater than 38.0 C), greater than or equal to 38 C, Starting on 09/17/23 at 1415, If ordered PRN for pain, nurse is permitted to administer this medication for higher pain scores based on patient preference? Yes Or acetaminophen (Tylenol) oral liquid 650 mgJump to med 650 mg, nasogastric tube, Every 4 hours PRN, fever (temp greater than 38.0 C), greater than or equal to 38 C, Starting on 09/17/23 at 1415 Or acetaminophen (Tylenol) suppository 650 mgJump to med 650 mg, rectal, Every 4 hours PRN, fever (temp greater than 38.0 C), greater than or equal to 38 C, Starting on 09/17/23 at 1415, If ordered PRN for pain, nurse is permitted to administer this medication for higher pain scores based on patient preference? Yes Group 2: acetaminophen (Tylenol) tablet 650 mgJump to med 650 mg, oral, Every 4 hours PRN, pain mild (1-3), first line, Starting on 09/17/23 at 1415, If ordered PRN for pain, nurse is permitted to administer this medication for higher pain scores based on patient preference? Yes Or acetaminophen (Tylenol) oral liquid 650 mgJump to med 650 mg, oral, Every 4 hours PRN, pain mild (1-3), first line, Starting on 09/17/23 at 1415, Give oral liquid per feeding tube if present. Or acetaminophen (Tylenol) suppository 650 mgJump to med 650 mg, rectal, Every 4 hours PRN, pain mild (1-3), first line, Starting on 09/17/23 at 1415, Give rectally if unable to administer by mouth or feeding tube., If ordered PRN for pain, nurse is permitted to administer this medication for higher pain scores based on patient preference? Yes Group 3: ondansetron ODT (Zofran-ODT) disintegrating tablet 4 mgJump to med 4 mg, oral, Every 8 hours PRN, nausea/vomiting, first line, Starting on 09/19/23 at 2235, 1st Line. Use oral route first, if possible. If inadequate response within 60 minutes, proceed to next-line agent for same PRN reason or contact provider if no further options ordered. Or ondansetron (Zofran) injection 4 mgJump to med 4 mg, intravenous, Every 4 hours PRN, nausea/vomiting, first line, Starting on 09/19/23 at 2235, 1st Line. Give IV if patient is unable to take orally. If inadequate response within 60 minutes, proceed to next-line agent for same PRN reason or contact provider if no further options ordered. When administering via IV Push, administer over 3-5 minutes. Scheduled Medication Order 10/02/2023 10/03/2023 10/04/2023 levoFLOXacin (Levaquin) IV 500 mg (COMPLETED) 500 mg, intravenous, at 100 mL/hr, Administer over 60 Minutes, Once, On Tue10/03/23 at 2300, For 1 dose, premix bag, Dosing of this medication varies based on severity of illness. Does this patient have sepsis or concern for sepsis (probable or documented infection plus systemic manifestations of infection)? Yes, Suspected Indication (Select all that apply): Abdominal Infection, Type of Therapy: Empiric, Type of infection: Community-Acquired 2300 (New Bag - Provider: Nikhil Kraus, MAUREEN) 0027 (Stopped - Provider: Nikhil Kraus RN) magnesium sulfate IV 2 g (COMPLETED) 2 g, intravenous, at 25 mL/hr, Administer over 120 Minutes, Once, On Tue10/03/23 at 2040, For 1 dose, Indication for rapid magnesium sulfate IV infusion: Asthma 2052 (New Bag - Provider: Nikhil Krasu RN)2242 (Stopped - Provider: Nikhil Kraus RN) meclizine (Antivert) tablet 25 mg 25 mg, oral, Once, On Tue10/04/23 at 0210, For 1 dose 0210 (Not Given - Provider: Nikhil Kraus RN - Reason: Medication not available - Comment: marisela says there is 49 tablets but there were none. dr nielson aware) ondansetron (Zofran) injection 4 mg (COMPLETED) 4 mg, intravenous, Once, On Tue10/04/23 at 0220, For 1 dose, When administering via IV Push, administer over 3-5 minutes. 022 (Given - Provid er: Nikhil Kraus RN) potassium chloride 20 mEq in 100 mL IV premix (COMPLETED) 20 mEq, intravenous, at 50 mL/hr, Administer over 2 Hours, Once, On Tue10/03/23 at 204, For 1 dose, Via peripheral line 2052 (New Bag - Provider: Nikhil Kraus RN)2242 (Stopped - Provider: Nikhil Kraus RN) sodium chloride 0.9 % bolus 500 mL (COMPLETED) 500 mL, intravenous, at 500 mL/hr, Administer over 1 Hours, Once, On Tue10/03/23 at 1955, For 1 dose 2006 (New Bag - Provider: Nikhil Kraus RN)223 (Stopped - Provider: Nikhil Kraus RN) sodium chloride 0.9 % bolus 500 mL (COMPLETED) 500 mL, intravenous, at 500 mL/hr, Administer over 1 Hours, Once, On Tue10/04/23 at 0045, For 1 dose 0045 (New Bag - Provider: Nikhil Kraus RN)0242 (Stopped - Provider: Nikhil Kraus RN) Continuous Medication Order 10/02/2023 10/03/2023 10/04/2023 sodium chloride 0.9% infusion 125 mL/hr, intravenous, Continuous, Starting on Tue10/03/23 at 1955 2020 (New Bag - Provider: Nikhil Kraus RN) Scheduled Medication Order 10/04/2023 10/05/2023 10/06/2023 biotin tablet 10 mg 10 mg, oral, Daily, First dose on Tue10/04/23 at 1015 1451 (Given - Provider: Dell Zepeda MD) 1632 (Given - Provider: Zia Harper RN) 0822 (Given - Provider: Tawnya Edwards RN) calcium carbonate (Tums) chewable tablet 500 mg 500 mg, oral, Daily, First dose on Tue10/04/23 at 1255 1451 (Given - Provider: Dell Zepeda MD) 0900 (Given - Provider: Zia Harper RN) 0822 (Given - Provider: Tawnya Edwards RN) famotidine (Pepcid) tablet 20 mg 20 mg, oral, 2 times daily, First dose on Tue10/04/23 at 1015 1236 (Given - Provider: Dell Zepeda MD)2000 (Given - Provider: Jacob Huggins RN) 1632 (Given - Provider: Zia Harper RN)2301 (Given - Provider: Lennie Reyes RN) 0822 (Given - Provider: Tawnya Edwards RN)2100 (Due) heparin (porcine) injection 5,000 Units 5,000 Units, subcutaneous, Every 8 hours, First dose on Tue10/04/23 at 1300 1452 (Given - Provider: Dell Zepeda MD)2100 (Not Given - Provider: Jacob uHggins RN - Reason: Patient/family refused) 0500 (Not Given - Provider: Jacob Huggins RN - Reason: Patient/family refused)1445 (Given - Provider: Zia Harper RN - Comment: nurse work flow)2301 (Given - Provider: Lennie Reyes RN) 0531 (Given - Provider: Lennie Reyes RN)1301 (Given - Provider: Tawnya Edwards RN)2100 (Due) lactated Ringer's bolus 500 mL 500 mL, intravenous, at 250 mL/hr, Administer over 2 Hours, Once, On Tue10/04/23 at 0835, For 1 dose 1029 (Incomplete - Provider: Teresa Wade RN) 1029 (Stopped - Provider: Raf Avery RN - Comment: Not running at current time.) loperamide (Imodium) capsule 2 mg (COMPLETED) 2 mg, oral, Once, On Tue10/05/23 at 1750, For 1 dose 1828 (Given - Provider: Zia Harper RN) loperamide (Imodium) capsule 2 mg 2 mg, oral, 4 times daily with meals and nightly, First dose on Tue10/06/23 at 0800 0639 (Given - Provider: Alexus De León RN - Comment: per pt, is to take before eating breakfast)1126 (Given - Provider: Tawnya Edwards RN)1711 (Given - Provider: Jarrett Chacon RN)2100 (Due) magnesium sulfate IV 2 g (COMPLETED) 2 g, intravenous, at 25 mL/hr, Administer over 2 Hours, Once, On Tue10/06/23 at 1500, For 1 dose 1503 (New Bag - Provider: Tawnya Edwards RN)1703 (Stopped - Provider: Jarrett Chacon RN) magnesium sulfate IV 4 g (COMPLETED) 4 g, intravenous, at 25 mL/hr, Administer over 4 Hours, Once, On Tue10/06/23 at 1000, For 1 dose 1120 (New Bag - Provider: Tawnya Edwards RN)1520 (Stopped - Provider: Tawnya Edwards RN) pantoprazole (ProtoNix) EC tablet 40 mg 40 mg, oral, Daily before breakfast, First dose on Tue10/05/23 at 0700, Do not crush, chew, or split. 0603 (Given - Provider: Jacob Huggins RN) 0531 (Given - Provider: Lennie Reyes RN) potassium chloride 20 mEq in 100 mL IV premix (COMPLETED) 20 mEq, intravenous, at 50 mL/hr, Administer over 2 Hours, Every 2 hours, First dose on Tue10/05/23 at 1000, For 2 doses, Total dose is 40 mEq via peripheral line. 1037 (New Bag - Provider: Zia Harper RN)1159 (Stopped - Provider: Zia Harper RN)1257 (New Bag - Provider: Zia Harper RN)1457 (Stopped - Provider: Zia Harper RN) potassium chloride CR (Klor-Con M20) ER tablet 40 mEq (COMPLETED) 40 mEq, oral, Once, On Tue10/05/23 at 1000, For 1 dose, Best given with food and plenty of water to minimize gastric irritation. Do not crush or chew. 1037 (Given - Provider: Zia Harper RN) potassium chloride CR (Klor-Con M20) ER tablet 40 mEq (COMPLETED) 40 mEq, oral, Once, On Tue10/05/23 at 2130, For 1 dose, Best given with food and plenty of water to minimize gastric irritation. Do not crush or chew. 2300 (Given - Provider: Lennie Reyes RN) Continuous Medication Order 10/04/2023 10/05/2023 10/06/2023 lactated Ringer's infusion 100 mL/hr, intravenous, Continuous, Starting on Tue10/05/23 at 2130, Phase II/On Unit 2301 (New Bag - Provider: Lennie Reyes RN) 1608 (New Bag - Provider: Jarrett Chacon RN) lactated Ringer's infusion (CANCELED) 100 mL/hr, intravenous, Continuous, Starting on Tue10/04/23 at 0840 1450 (New Bag - Provider: Dell Zepeda MD)1828 (Rate/Dose Verify - Provider: Bhavani Rhodes RN)202 (Rate/Dose Verify - Provider: Jacob Huggins RN)223 (Rate/Dose Verify - Provider: Jacob Huggins RN) 0125 (New Bag - Provider: Jacob Huggins RN)0419 (Rate/Dose Verify - Provider: Jacob Huggins RN)1636 (New Bag - Provider: Zia Harper RN)1737 (Stopped - Provider: Zia Harper RN) sodium bicarbonate 150 mEq in dextrose 5% 1,000 mL infusion (CANCELED) 125 mL/hr, intravenous, Continuous, Starting on Tue10/04/23 at 0825 1025 (Rate/Dose Verify - Provider: Bhavani Rhodes RN)1637 (Rate/Dose Verify - Provider: Bhavani Rhodes RN)1853 (Rate/Dose Verify - Provider: Bhavani Rhodes RN)1946 (New Bag - Provider: Jacob Huggins RN)2232 (Rate/Dose Verify - Provider: Jacob Huggins RN) 0419 (Rate/Dose Verify - Provider: Jacob Huggins RN)0527 (New Bag - Provider: Jacob Huggins RN)2303 (Stopped - Provider: Lennie Reyes RN) sodium chloride 0.9% infusion (CANCELED) 125 mL/hr, intravenous, Continuous, Starting on Tue10/04/23 at 0705 0710 (New Bag - Provider: Mary Meyer RN)0835 (Stopped - Provider: Teresa Wade RN) PRN Medication Order 10/04/2023 10/05/2023 10/06/2023 acetaminophen (Tylenol) tablet 650 mg 650 mg, oral, Every 4 hours PRN, pain mild (1-3), first line, Starting on Tue10/04/23 at 1924, Phase II/On Unit, If ordered PRN for pain, nurse is permitted to administer this medication for higher pain scores based on patient preference? Yes 9828 (Not Given - Provider: Lennie Reyes RN - Reason: Patient/family refused) Goals (unrecognized section and content) Goals may be documented in a n alternate sectionGoals may be documented in an alternate sectionGoals may be documented in an alternate section FOR RECORDS PERTAINING TO PATIENTS WHO ARE OR HAVE BEEN ENROLLED IN A CHEMICAL DEPENDENCY/SUBSTANCEABUSE PROGRAM, SOME INFORMATION MAY BE OMITTED. This clinical summary was aggregated from multiple sources. Caution should be exercised in using it in the provision of clinical care. This summary normalizes information from multiple sources, and as a consequence, information in this document may materially change the coding, format and clinical context of patient data. In addition, data may be omitted in some cases. CLINICAL DECISIONS SHOULD BE BASED ON THE PRIMARY CLINICAL RECORDS. [employer] [facility]. provides no warranty or guarantee of the accuracy or completeness of information in this document.
[2025-04-18] MEDS: Lactated Ringers 1,000 ML 15 ML IV (06:51)
--- NOTE | 2025-04-18 06:52 | PCM.HP.STD ---
HPI - General General Date of Admission: 04/18/25 Date of Service: 04/18/25 Chief Complaint: diarrhea HPI Narrative KAMILA REHMAN, is a 69 F who presents [ Chief Complaint: diarrhea BGI established March 2024 with complaints of watery diarrhea since her small bowel resection and partial colectomy in August 2023. Started on Colestipol 2 grams daily. OV 5..25; if she takes Imodium she will have a formed stool, always after she eats, OV 2..25 Continues loose stools on a daily basis. Having about 8 bm per day while taking colestipol 2 grams daily. Increased colestipol to 2 grams BID Stool 3..25; Calprotectin, elastase, Giardia, and c.dif all wnl OV 09.18.24 Pt continues to have loose stools daily. She has loose stools after eating. SHe endorse around 7 episodes of loose stool per day. She is taking colestipol 4 grams daily split into to doses. She has not noticed much Relief with this. She takes Imodium 3x a day as needed when she has a special occasions like travel. Patient switched from colestipol to cholestyramine. OV 12.18.24 patient continues to have loose stools while on cholestyramine. She notes she had recent blood work done with her PCP and her triglycerides were high. Patient's PCP is wondering if this was related to the bile acid sequestrant's. Patient takes Imodium as needed when she has to go out. Recommendation to stop cholestyramine and colestipol due to elevated triglycerides. Start fiber supplement and Lomotil as needed. OV 03/20/2025 - Patient discontinued Lomotil after 1 years due to fatigue -Continues taking Imodium about 1 time per week if she has plans -Worried about taking Imodium daily -Has about 7 liquid bowel movements per day mostly after eating -Continues with fiber supplement Calprotectin, Stool Today K52.9 - Noninfective gastroenteritis and colitis, unspecified ] [facility] Medical History Wears glasses Post-menopausal Cancer History of steroid therapy Gastric reflux Non-smoker History of stress test Hypertension History of small bowel obstruction Fatigue Hypoproteinemia Hypomagnesemia Anemia B12 deficiency Chronic diarrhea Home Medications ?Medication ?Instructions ?Recorded ?Last Taken ?Type lisinopril 20 mg tablet 20 mg PO BID 02/09/24 04/17/25 History omeprazole 40 mg capsule,delayed 40 mg PO QDAY 03/06/24 04/17/25 History release loperamide 2 mg capsule 2 mg PO Q6H PRN loose stool #45 09/18/24 Unknown Rx caps fenofibrate nanocrystallized 48 mg 48 mg PO QDAY 12/18/24 04/15/25 History tablet diphenoxylate-atropine 2.5 1 tab PO BID PRN diarrhea #60 tabs 12/19/24 Unknown Rx mg-0.025 mg tablet (Lomotil) inulin 1.7 gram chewable tablet 3.4 g PO DAILY 03/20/25 04/15/25 History (Fiber Gummies) lactobacillus combination no.9 4 4,000 mmu cells PO QDAY 03/20/25 04/15/25 History billion cell capsule (Adult 50 Plus Probiotic) amlodipine 10 mg tablet 10 mg PO DAILY 04/16/25 04/18/25 05:00 History biotin 10,000 mcg capsule 10,000 mcg PO DAILY 04/16/25 04/15/25 History magnesium chloride 64 mg 64 mg PO DAILY 04/16/25 04/15/25 History (magnesium chloride) tablet,delayed release (Mag 64) metoprolol succinate 25 mg 25 mg PO DAILY 04/16/25 04/18/25 05:00 History tablet,extended release 24 hr potassium chloride 20 mEq 20 meq PO DAILY 04/16/25 04/15/25 History tablet,extended release(part/cryst) Allergy/AdvReac Type Severity Reaction Status Date / Time No Known Allergies Allergy Verified 04/18/25 06:42 Surgical History History of bilateral tubal ligation History of carpal tunnel surgery of right wrist Hx of hysterectomy Hx of resection of small bowel Social History Smoking Status: Never smoker ROS Constitutional Constitutional: Denies fatigue, fever(s), poor appetite, weight gain or weight loss Gastrointestinal Gastrointestinal: Denies belching, bloating, change in bowel habits, change in stool character, chewing difficulty, coffee ground emesis, constipation, cramping, diarrhea, dyspepsia, dysphagia, early satiety, excessive flatus, fecal incontinence, heartburn, hematemesis, hematochezia, hemorrhoids, loose stools, melena, nausea, odynophagia, rectal bleeding, tenesmus, vomiting or weight changes Patient's Goals Of Care . What would you like to achieve or improve as a result of your hospital stay?: nothing Vital Signs Vital Signs Vital Signs: 04/18/25 06:45 04/18/25 06:48 04/18/25 06:50 Temperature 97.9 F Temperature Source Temporal Pulse Rate 68 Respiratory Rate 16 Respiratory Pattern Normal Blood Pressure 136/66 H Blood Pressure Mean 89 Blood Pressure Source Monitor Blood Pressure Position Semi-Fowlers Blood Pressure Location Right Arm Baseline BP 136/66 Pulse Ox 97 Oxygen Delivery Method Room Air Weight Weight: 103 lb 12.8 oz Body Mass Index (BMI) 20.2 Physical Exam Const alert, oriented x3, no apparent distress and healthy appearing General Appearance: cooperative GI normal to inspection, nondistended, normoactive bowel sounds, soft to palpation, non-tender and non-distended Percussion: normal to percussion Rectal Exam: deferred Assessment & Plan Assessment/Plan (1) Chronic diarrhea: PLAN: Assessment and Plan Assessment and Plan (1) Chronic diarrhea: Status: Chronic Plan: Kamila is a 69-year-old female patient who is status post small bowel resection and partial colectomy in August 2023 due to small bowel obstruction and 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 Since then patient has struggled with chronic diarrhea. She has about 7 liquid bowel movements per day typically after eating. We trialed colestipol and cholestyramine which did not resolve her symptoms and was possibly the cause of her new elevation in triglycerides therefore was discontinued. At her last appointment, she was started on Lomotil as needed and fiber supplement. She felt tired when taking the Lomotil so has not used it much. Recommended continuing Imodium as needed, fiber and adding pancreatic enzymes such as Creon. Patient may have EPI due to resection of her small bowel subsequently causing impaired stimulation and delivery of pancreatic enzymes. Samples were provided to her today and if she has good results will send in prescription. Recommended colonoscopy since she has not had 1 since her resection. Patient was agreeable and was scheduled for this today. -Colonoscopy - Continue fiber supplement - Imodium as needed - Trial pancreatic enzymes, will send prescription if it is helpful - Follow-up after procedure Note: Portions of this note may have been selectively carried forward from previous documentation to ensure continuity and accuracy of the clinical record. All imported information has been reviewed and updated as necessary to reflect the current patient status, findings, and clinical decision-making for this encounter. [employer] speech recognition tree care foreman software was used to create portions of this document. Sound alike and misspelled words, as well as other tree care foreman errors may be contained in the documentation. Orders: Orders
--- NOTE | 2025-04-18 06:57 | PCM.PRE.AN2 ---
ASA Classification* ASA Classification ASA Classification: 2 Assessment & Plan Anesthesia* Anesthesia Assessment Anesthesia Assessment: Discussed sedation and/or anesthesia options, risks, benefits, and alternatives with patient/parents/legal guardian/POA. Questions invited. The patient/parents/legal guardian/POA seems to understand and agrees to proceed with anesthesia plan. Reviewed the physical assessment, medical history, allergy history and patient home medications list prior to surgery/procedure/anesthetic and documented any changes. Performed airway and anesthesia risk assessments. 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 When Was Last Pacemaker Check QUESTION #4 FULL TEXT: You/Your Family Experience fever (hyperthermia) with Anesthesia Last Oral Intake Last Oral intake: Last Oral Intake NPO since 03:00 04/18/25 06:48 Meds taken in AM with sips of Yes 04/18/25 06:48 water? Meds patient instructed to take am of surgery PONV PONV - horticultural specialty grower: PONV - horticultural specialty grower Female Yes 04/16/25 11:21 HX of Motion Sickness No 04/16/25 11:21 HX of N/V After Surgery No 04/16/25 11:21 Non-Smoker Yes 04/16/25 11:21 Duration of Surgery greater No 04/16/25 11:21 than 60 minutes Number of Risk Factors 2 04/16/25 11:21 PONV Score Moderate Risk 04/16/25 11:21 Height & Weight Height & Weight: Anesthesia: Height & Weight Height 5 ft 04/18/25 06:48 Weight: 47.083 kg 04/18/25 06:48 Body Mass Index (BMI) 20.2 04/18/25 06:48 Respiratory Assessment Respiratory Assessment - horticultural specialty grower: Respiratory Tract Infection Hx - horticultural specialty grower Hx Respiratory Tract Infection No 04/16/25 11:21 STOP Sleep Apnea STOP Sleep Apnea - horticultural specialty grower: STOP Sleep Apnea - horticultural specialty grower Hx Hypertension Yes: RECENT ADDITION OF MED- 04/16/25 11:21 METOPROLOL Hx Sleep Apnea No 04/16/25 11:21 CPAP BIPAP Do you snore loudly (louder No 04/16/25 11:21 than talking or can be heard Do you often feel tired/ No 04/16/25 11:21 fatigued/ sleepy during daytime? Has anyone observed you stop No 04/16/25 11:21 breathing during sleep? STOP Results Negative 04/16/25 11:21 QUESTION #5 FULL TEXT : Do you snore loudly (louder than talking or can be heard through closed doors)? Tobacco Use History Tobacco Use History - horticultural specialty grower: Tobacco Use History - horticultural specialty grower Tobacco Use Smoking Status Never smoker 04/16/25 11:21 Hx Tobacco Use No 04/16/25 11:21 Years Smoking Packs Smoked per Day Smoking Cessation Date was within the last 15 years Hx Smoking Cessation Date Hx Smoking Cessation Counseling Hematologic Medial History Hematologic Hx - horticultural specialty grower: Hematologic Medical Hx - clinical lab clerk Hx of Blood Transfusion No 04/16/25 11:21 Hx of Transfusion in last 3 No 04/16/25 11:21 Months Date of Last Transfusion (if within last 3 months) Ever experience any problems No 04/16/25 11:21 with transfusion(s)? Specify any problems Hx of Preganancy in last 3 No 04/16/25 11:21 Months Nurse Filling Out Transfusion VCHRISTIN 04/16/25 11:21 & Questions: Date: 04/16/25 04/16/25 11:21 Time: 11:22 04/16/25 11:21 Patient unable to answer at this time (ie. confused, unrespo /Reproduction History /Reproductive History - horticultural specialty grower: /Reproductive Hx- horticultural specialty grower Hx Now No 04/16/25 11:21 Gestational Age (in weeks): EDC: Hx Hx Para Hx Section SAB No 04/16/25 11:21 Does the father of the baby or his family experience fever w Father of the baby Malignant Hypertension history comment Active Medications Active Medications: Current Medications Generic Name Dose Route Start Last Admin Trade Name Freq PRN Reason Stop Dose Admin Lactated Ringer's 1,000 mls @ 15 mls/hr 04/18/25 06:30 04/18/25 06:51 IV 15 mls/hr .Q48H VIOLETA Administration PFSH Medical History Wears glasses Post-menopausal Cancer History of steroid therapy Gastric reflux Non-smoker History of stress test Hypertension History of small bowel obstruction Fatigue Hypoproteinemia Hypomagnesemia Anemia B12 deficiency Chronic diarrhea Home Medications ?Medication ?Instructions ?Recorded ?Last Taken ?Type lisinopril 20 mg tablet 20 mg PO BID 02/09/24 04/17/25 History omeprazole 40 mg capsule,delayed 40 mg PO QDAY 03/06/24 04/17/25 History release loperamide 2 mg capsule 2 mg PO Q6H PRN loose stool #45 09/18/24 Unknown Rx caps fenofibrate nanocrystallized 48 mg 48 mg PO QDAY 12/18/24 04/15/25 History tablet diphenoxylate-atropine 2.5 1 tab PO BID PRN diarrhea #60 tabs 12/19/24 Unknown Rx mg-0.025 mg tablet (Lomotil) inulin 1.7 gram chewable tablet 3.4 g PO DAILY 03/20/25 04/15/25 History (Fiber Gummies) lactobacillus combination no.9 4 4,000 mmu cells PO QDAY 03/20/25 04/15/25 History billion cell capsule (Adult 50 Plus Probiotic) amlodipine 10 mg tablet 10 mg PO DAILY 04/16/25 04/18/25 05:00 History biotin 10,000 mcg capsule 10,000 mcg PO DAILY 04/16/25 04/15/25 History magnesium chloride 64 mg 64 mg PO DAILY 04/16/25 04/15/25 History (magnesium chloride) tablet,delayed release (Mag 64) metoprolol succinate 25 mg 25 mg PO DAILY 04/16/25 04/18/25 05:00 History tablet,extended release 24 hr potassium chloride 20 mEq 20 meq PO DAILY 04/16/25 04/15/25 History tablet,extended release(part/cryst) Allergy/AdvReac Type Severity Reaction Status Date / Time No Known Allergies Allergy Verified 04/18/25 06:42 Surgical History History of bilateral tubal ligation History of carpal tunnel surgery of right wrist Hx of hysterectomy Hx of resection of small bowel Social History Smoking Status: Never smoker Review of Systems (Anesthesia) ROS Narrative System reviewed and no additional complaints, except as documented.
--- NOTE | 2025-04-18 07:38 | OP.COLON_ITS ---
Patient Name: Kamila Patel Procedure Date: 04/18/2025 7:04 AM Date of : 1955 Age: 69 Procedure: Colonoscopy Indications: Screening for colorectal malignant neoplasm Providers: Hardeep Napoles DO Medicines: Monitored Anesthesia Care Patient Profile: This is a 69 year old female. Refer to note in patient chart for documentation of history and physical. Last Colonoscopy: several years ago. Complications: No immediate complications. Procedure: Pre-Anesthesia Assessment: - Prior to the procedure, a History and Physical was performed, and patient medications and allergies were reviewed. The patient is competent. The risks and benefits of the procedure and the sedation options and risks were discussed with the patient. All questions were answered and informed consent was obtained. Patient identification and proposed procedure were verified by the physician in the pre-procedure area. Mental Status Examination: alert and oriented. Airway Examination: normal oropharyngeal airway and neck mobility. Respiratory Examination: clear to auscultation. CV Examination: normal. Prophylactic Antibiotics: The patient does not require prophylactic antibiotics. Prior Anticoagulants: The patient has taken no anticoagulant or antiplatelet agents except for NSAID medication. ASA Grade Assessment: II - A patient with mild systemic disease. After reviewing the risks and benefits, the patient was deemed in satisfactory condition to undergo the procedure. The anesthesia plan was to use monitored anesthesia care (MAC). Immediately prior to administration of medications, the patient was re-assessed for adequacy to receive sedatives. The heart rate, respiratory rate, oxygen saturations, blood pressure, adequacy of pulmonary ventilation, and response to care were monitored throughout the procedure. The physical status of the patient was re-assessed after the procedure. After I obtained informed consent, the scope was passed under direct vision. Throughout the procedure, the patient's blood pressure, pulse, and oxygen saturations were monitored continuously. The Colonoscope was introduced through the anus and advanced to the cecum, identified by appendiceal orifice and ileocecal valve. The colonoscopy was performed without difficulty. The patient tolerated the procedure well. The quality of the bowel preparation was adequate. The terminal ileum, ileocecal valve, appendiceal orifice, and rectum were photographed. Scope In: 7:16:26 AM Scope Withdrawal Time 0 hours 7 minutes 12 seconds Scope Out: 7:31:16 AM Total Procedure Duration Time 0 hours 14 minutes 50 seconds Findings: The perianal and digital rectal examinations were normal. There was evidence of a prior end-to-side ileo-colonic anastomosis in the ascending colon. This was patent and was characterized by healthy appearing mucosa. The anastomosis was traversed. The terminal ileum appeared normal. Retroflexion in the rectum was not performed due to anatomy. The exam was otherwise without abnormality. Impression: - Patent end-to-side ileo-colonic anastomosis, characterized by healthy appearing mucosa. - The examined portion of the ileum was normal. - The examination was otherwise normal. - No specimens collected. Recommendation: - Discharge patient to home. - Resume previous diet. - Continue present medications. - Repeat colonoscopy in 5 years for surveillance. Procedure Code(s): --- Professional --- 64290, Colonoscopy, flexible; diagnostic, including collection of specimen(s) by brushing or washing, when performed (separate procedure) CPT copyright 2021 [employer]. All rights reserved. The codes documented in this report are preliminary and upon academic interventionist review may be revised to meet current compliance requirements. Hardeep Napoles DO 04/18/2025 7:38:14 AM This report has been signed electronically. Number of Addenda: 0 Note Initiated On: 04/18/2025 7:04 AM
--- NOTE | 2025-04-18 07:38 | OP.PROVAT_ITS ---
04/18/2025 Monie Galarza Re : Colonoscopy procedure for Kamila Galarza This procedure was performed on April. My impressions and recommendations are as follows: Impressions : - Patent end-to-side ileo-colonic anastomosis, characterized by healthy appearing mucosa. - The examined portion of the ileum was normal. - The examination was otherwise normal. - No specimens collected. Recommendations : - Discharge patient to home. - Resume previous diet. - Continue present medications. - Repeat colonoscopy in 5 years for surveillance. My findings are described in the full procedure note, which is enclosed. If I can be of further assistance, please feel free to contact me at . Sincerely, Hardeep Friend, 04/18/2025 7:38:14 AM This report has been signed electronically.
--- NOTE | 2025-04-18 07:40 | PCM.POST.ANE ---
Anesthesia: Postop Eval I Current Vital Signs Temperature: 97.6 F Pulse Rate: 74 Blood Pressure: 102/63 Respiratory Rate: 16 Pulse Ox: 96 Oxygen Delivery Method: Room Air Assessment Airway patent: Yes Spontaneous unlabored respirations: Yes Mental status: Asleep nausea: No Vomiting: No Anesthesia Complication: No Fluid Hydration Crystalloid volume administer (ml): 500 Total IV fluid infused: 500 Progress Note Anesthesia document: Postop Eval 1 completed: Yes
--- NOTE | 2025-04-18 12:47 | PCM.POSTANE2 ---
Anesthesia Postop Eval I Sum Postop Eval Completion status Anesthesia document: Postop Eval 1 completed: Yes Anesthesia Postop Eval I Summary Anesthesia Postop Eval I Summary: Anesthesia Postop Eval I: Assessment Summary Airway patent Yes 04/18/25 07:41 [email or web address] Spontaneous unlabored Yes 04/18/25 07:41 [email or web address] respirations Mental status Asleep 04/18/25 07:41 [email or web address] nausea No 04/18/25 07:41 [email or web address] Vomiting No 04/18/25 07:41 [email or web address] Anesthesia Postop Eval I: Fluid Summary Crystalloid volume administer 500 04/18/25 07:41 [email or web address] (ml) Colloids volume administered ( ml) Blood Product volume administered (ml) Total IV fluid infused 500 04/18/25 07:41 [email or web address] Anesthesia Postop Eval I: Summary Notes Anesthesia Complication No 04/18/25 07:41 [email or web address] Anesthesia Complication Comment: Post-operative progress note Anesthesia: Postop Eval II Evaluation Mental status: Awake and Calm Pain Level: 1 nausea: No Vomiting: No Complications Anesthesia Complication: No
== END 2025-04-18 08:40 | disposition home or self-care (01) ==
LOC: EN 06:09 → AC 06:13
PROVIDERS: PCP Internal Medicine; Referring Provider Internal Medicine; Visit Provider Internal Medicine Gastroenterology
PROC: 0DJD8ZZ Inspection of Lower Intestinal Tract, Via Natural or Artificial Opening Endoscopic (ICD-10-PCS; CPT 45378; principal; 2025-04-18 07:10)
DX: K52.9 Noninfective gastroenteritis and colitis, unspecified (principal); I10 Essential (primary) hypertension; K21.9 Gastro-esophageal reflux disease without esophagitis; Z90.49 Acquired absence of other specified parts of digestive tract; Z79.899 Other long term (current) drug therapy; Z98.51 Tubal ligation status; Z90.710 Acquired absence of both cervix and uterus
CPT/HCPCS: 45378; J2405